=== PATIENT | female | born 1950 | race Caucasian/White ===

== ENCOUNTER 2021-06-05 12:04 | Outpatient (CLI) | payer MEDICARE, OTHER, SELFPAY ==
--- NOTE | 2021-06-05 12:06 | BI_ITS ---
MAMMOGRAPHY - BILATERAL SCREENING REASON FOR EXAM: Female, 71 years old. Routine annual screening examination. PERTINENT HISTORY: Personal history of breast cancer. History of prior bilateral lumpectomies and radiation treatment. Remote right excisional breast biopsy. TECHNIQUE: Digital bilateral breast sharmila (3D mammographic acquisition) in the CC and MLO projections. 2-D mediolateral oblique (MLO) and craniocaudad (CC) views of both breasts were obtained. CAD: Full Field Digital Mammography with Computer Added Detection was performed. COMPARISON: Comparison is made with prior abdomen examination dated 12/18/2019. FINDINGS: Breast Composition: There are scattered areas of fibroglandular density. There are no dominant masses or suspicious calcifications. Is a stable 2.6 cm x 1.3 cm densely calcified nodule in the deep inferior medial aspect of the left breast. It is also evidence of a stable 9 mm densely calcified nodule in the deep mid medial portion of the right breast. Stable scattered bilateral microcalcifications. No other significant abnormalities are identified. There has been no significant change since the prior study. BI/SCRN MAMM (CAD)W/SHARMILA BILAT IMPRESSION: Stable bilateral screening mammogram. Yearly follow-up mammogram recommended. (A) ASSESSMENT CATEGORY: BIRADS Category 2: Benign. A letter regarding these results will be sent to the patient by the facility within 30 days. Approximately 10% of breast cancers are not detected by mammography. A normal mammogram should not delay biopsy of a clinically suspicious abnormality. [id number] Electronically Signed: Qasim Roman MD at 12:57 EST , Service support ,
== END 2021-06-05 23:59 | disposition short-term general hospital (02) ==
LOC: OPBI 12:05
PROVIDERS: PCP Internal Medicine; Referring Provider Internal Medicine Hematology & Oncology; Visit Provider Internal Medicine Hematology & Oncology
DX: Z12.31 Encounter for screening mammogram for malignant neoplasm of breast (principal)
CPT/HCPCS: 77063; 77067

== ENCOUNTER 2021-06-16 15:32 | Outpatient (CLI) | payer MEDICARE, OTHER, SELFPAY ==
--- NOTE | 2021-06-16 15:45 | RAD_ITS ---
STUDY: X-RAY - PELVIS AND LEFT HIP REASON FOR EXAM: Female, 71 years old. Left hip pain. TECHNIQUE: 3 views of the pelvis and hip. COMPARISON: None. FINDINGS: There is a non-specific bowel gas pattern. Vascular calcifications. Osteopenia. Mild arthrosis of the sacroiliac joints. Normal bilateral superior and inferior pubic rami. Mild arthrosis of the symphysis pubis. Normal bilateral ischial tuberosities. Moderate arthrosis of both hips with osteophytes, left greater than right. RAD/HIP, UNI W/ Pelvis 2-3 Views IMPRESSION: Osteopenia. Mild arthrosis of the sacroiliac joints and symphysis pubis. Osteoarthritic changes of both hips, left greater than right. No acute abnormality, evidence of erosive changes or fusion. Electronically Signed: Aman Sharma MD at 10:27 EST ,
== END 2021-06-16 23:59 | disposition home or self-care (01) ==
PROVIDERS: PCP Internal Medicine; Referring Provider Nurse Practitioner Family; Visit Provider Nurse Practitioner Family
DX: Z51.11 Encounter for antineoplastic chemotherapy (principal); C90.00 Multiple myeloma not having achieved remission; M25.552 Pain in left hip
CPT/HCPCS: 36415; 73502; 80053; 85025; 96401; J1756; J7050; A4216; J9041

== ENCOUNTER 2022-06-08 09:08 | Outpatient (CLI) | payer MEDICARE, OTHER, SELFPAY ==
--- NOTE | 2022-06-08 09:10 | BI_ITS ---
MAMMOGRAPHY - BILATERAL SCREENING REASON FOR EXAM: Female, 72 years old. Routine annual screening examination. PERTINENT HISTORY: Personal history of breast cancer. Prior bilateral lumpectomy with radiation therapy. Right excisional breast biopsy. TECHNIQUE: Digital bilateral breast sharmila (3D mammographic acquisition) in the CC and MLO projections. 2-D mediolateral oblique (MLO) and craniocaudad (CC) views of both breasts were obtained. CAD: Full Field Digital Mammography with Computer Added Detection was performed. COMPARISON: Comparison is made with prior examination dated 11/03/2021. FINDINGS: Breast Composition: There are scattered areas of fibroglandular density. There are no dominant masses or suspicious calcifications. There is a stable 2.6 cm x 1.3 cm densely calcified nodule in the deep inferior medial aspect of the left breast. Stable 9 mm densely calcified nodule in the deep mid medial portion of the right breast. No other significant abnormalities are identified. There has been no significant change since the prior study. BI/SCRN MAMM (CAD)W/SHARMILA BILAT IMPRESSION: Stable bilateral screening mammogram. Yearly follow-up mammogram recommended. (A) ASSESSMENT CATEGORY: BIRADS Category 2: Benign. A letter regarding these results will be sent to the patient by the facility within 30 days. Approximately 10% of breast cancers are not detected by mammography. A normal mammogram should not delay biopsy of a clinically suspicious abnormality. [id number] Electronically Signed: Qasim Roman MD at 10:39 EST ,
== END 2022-06-08 23:59 | disposition home or self-care (01) ==
LOC: OPBI 09:08
PROVIDERS: PCP Internal Medicine; Visit Provider Internal Medicine Hematology & Oncology
DX: Z12.31 Encounter for screening mammogram for malignant neoplasm of breast (principal); C90.00 Multiple myeloma not having achieved remission
CPT/HCPCS: 36415; 77063; 77067; 82784; 84165; 85025; 86334; 96401; J9041

== ENCOUNTER → 2023-06-06 | Outpatient (CLI) | payer MEDICARE, OTHER, SELFPAY ==
--- NOTE | 2023-06-06 10:24 | MRI_ITS ---
EXAM: MR THORACIC SPINE WITHOUT AND WITH INTRAVENOUS CONTRAST CLINICAL INDICATION: mid-low back pain;multiple myeloma TECHNIQUE: Multiplanar and multisequence MR images of the thoracic spine without and with intravenous contrast. CONTRAST: IV 15cc Clariscan COMPARISON: No relevant prior studies available. FINDINGS: VERTEBRAE: Alignment of the thoracic vertebral bodies is normal. 16 mm lesion located within the posterior right side of the T8 vertebral body associated with inferior endplate deformity. Changes in bone marrow signal intensity also noted within the right T8 pedicle. The vertebral body and pedicle appear to enhance with contrast. Fat-containing lesion involving the left side of the T11 vertebral body, pedicle and facet again seen suggestive of hemangioma. Bone marrow signal intensity within the thoracic spine is otherwise normal. No acute fracture. There is preservation of the normal thoracic kyphosis. No scoliosis. DISCS/SPINAL CANAL/NEURAL FORAMINA: 10 x 4 mm extruded disc at the T7-8 level extending just to the right of midline causes moderate compression of the thecal sac but no significant compression of the thoracic cord. Spinal canal and neural foramina are otherwise intact. Mild narrowing of the intervertebral discs of the thoracic spine. SPINAL CORD: Normal. Normal in signal and morphology. Normal conus medullaris. SOFT TISSUES: Normal. MRI/Spine Thoracic W/WO Contrast IMPRESSION: 1. T8 lesion which may represent changes of multiple myeloma associated with inferior endplate deformity. 2. T7-8 right paracentral disc extrusion causing moderate compression of the thecal sac. Electronically Signed: Larry Hernandez MD at 14:43 EST ,
--- NOTE | 2023-06-06 10:24 | MRI_ITS ---
EXAM: MR LUMBAR SPINE WITHOUT AND WITH INTRAVENOUS CONTRAST CLINICAL INDICATION: mid-low back pain;multiple myeloma TECHNIQUE: Multiplanar and multisequence MR images of the lumbar spine without and with intravenous contrast. CONTRAST: IV 15cc Clariscan COMPARISON: No relevant prior studies available. FINDINGS: VERTEBRAE: Compression deformity of the left side of the L4 vertebral body noted associated with bone marrow edema and contrast enhancement. Findings suggestive of pathologic fracture. Abnormal signal intensity within the left L4 facet suspicious for metastatic disease or multiple myeloma as given in the clinical history. No other bony lesions are apparent of the fluid appears to be hemangioma within the T11 vertebral body. Alignment of the lumbar vertebral bodies is normal. SPINAL CORD: Conus medullaris terminates at the T12-L1 junction. Conus medullaris and cauda equina are normal. SOFT TISSUES: Normal. DISCS/SPINAL CANAL/NEURAL FORAMINA: L1-L2: Normal. Normal disc height and morphology. Normal spinal canal and lateral recesses. Normal neuroforamina. L2-L3: Mild disc space narrowing. No posterior disc protrusion. Mild facet arthropathy. No spinal or neural foraminal stenosis. L3-L4: No significant disc space narrowing or disc protrusion. Ligamentous hypertrophy and facet arthropathy results in moderate spinal and bilateral neural foraminal stenoses. L4-L5: No significant disc space narrowing. Mild disc bulging associated with annular fissure. Ligamentous hypertrophy and facet arthropathy results in mild lateral compression of the spinal canal and severe left and moderate right neural foraminal stenosis. L5-S1: Moderate facet arthropathy resulting in mild narrowing of the neural foramina. Intact spinal canal. MRI/Spine Lumbar W/WO Contrast IMPRESSION: 1. Compression deformity of the left superior and inferior endplates of L4 consistent with pathologic fracture. Associated bone marrow edema and abnormal contrast enhancement of the left side of the vertebral body and left facet consistent with the patient''s history of multiple myeloma. 2. Multilevel spinal and neural foraminal narrowing as described above. Electronically Signed: Larry Hernandez MD at 14:18 EST ,
--- OUTSIDE RECORDS SUMMARY | 2023-06-06 10:31 | XMS RPT_ITS | CCD ---
Author Name Unknown Address [address] [place] [address] Organization [facility] Care Team Providers Care Refrigeration Brazer/Solderer Name Role Phone BHARATH ACEVES UVALDO Unavailable Unavailable ROYAL, TJ S. Unavailable Unavailable LIZBETH BERGERON Unavailable Unavailable ROYAL, TJ S. Unavailable Unavailable [place], Tj Unavailable Unavailable [place], Tj S Unavailable Unavailable YoungMaddi Unavailable Unavailable [place], Tj S Unavailable Unavailable Unavailable [place], Tj Unavailable Ned Wilkes Unavailable Jeet Lynne Unavailable [place] DO, Tj Primary Care Provider Pamela VILLANUEVA, Niels Unavailable Yuval VILLANUEVA, PhD, Paulo M Unavailable Unavailable Unavailable [place] DO, Tj S Primary Care Provider Jeet Lynne DO Unavailable [place], Tj Primary Care Unavailable [place], Tj Referring Unavailable [place], Tj Attending Unavailable [place], Tj Primary Care Unavailable [place], Tj Referring Unavailable [place], Tj Attending Unavailable [place], Tj Primary Care Unavailable [place], Tj Referring Unavailable [place], Tj Attending Unavailable Jete Lynne Referring Unavailable Jeet Lynne Attending Unavailable [place], Tj Primary Care Unavailable [place], Tj Referring Unavailable [place], Tj Attending Unavailable [place], Tj Primary Care Unavailable [place], Tj Attending Unavailable [place], Tj Primary Care Unavailable [place], Tj Primary Care Unavailable [place], Tj Attending Unavailable Bachelder, Dr. Jerrod Douglas Attending Chantell vailable Tj Cortez Primary Care Unavailable TJ CORTEZ S Attending Unavailable TJ CORTEZ S Referring Unavailable TJ CORTEZ S Primary Care Unavailable TJ CORTEZ S Attending Unavailable TJ CORTEZ S Primary Care Unavailable TJ CORTEZ S Primary Care Unavailable TJ CORTEZ Referring Unavailable PAULO CYR Attending Unavailable TJ CORTEZ Primary Care Unavailable TJ CORTEZ Primary Care Unavailable PAULO CYR Attending Unavailable PAULO CYR Referring Unavailable TJ CORTEZ Primary Care Unavailable PAULO CYR Attending Unavailable PAULO CYR Referring Unavailable TJ CORTEZ Primary Care Unavailable PAULO CYR Attending Unavailable TJ CORTEZ Primary Care Unavailable TJ CORTEZ Referring Unavailable Medications Current Medications Medication Drug Class(es) Dates Sig (Normalized) Sig (Original) acyclovir 400 mg oral tablet (20 sources) Herpesvirus Nucleoside Analog DNA Polymerase Inhibitor, Herpes Simplex Virus Nucleoside Analog DNA Polymerase Inhibitor, Herpes Zoster Virus Nucleoside Analog DNA Polymerase Inhibitor Start: 06-02-2021 take 1 tablet by mouth twice daily acyclovir (Zovirax) 400 mg tablet Take 1 tablet (400 mg) by mouth 2 times a day. For 30 days with the start of chemotherapy 0 06/02/2021 Active Completed/Discontinued Medications Medication Drug Class(es) Dates Sig (Normalized) Sig (Original) amoxicillin 875 mg oral tablet (7 sources) Penicillin-class Antibacterial Start: 07-09-2022 take 1 tablet by mouth once daily Amoxicillin 875 MG Oral Tablet TAKE 1 TABLET EVERY 12 HOURS DAILY. Quantity: 20 Refills: 0 Ordered: 09-Jul-2022 Tj Cortez DO Start : 09-Jul-2022 Active Problems Active Problems Problem Classification Problem Date Documented Date Episodic/Chronic Abdominal pain (4 sources) Abdominal pain; Translations: [Abdominal pain, unspecified site] Episodic Acute bronchitis (1 source) Acute bronchitis; Translations: [Acute bronchitis] Episodic Diabetes mellitus without complication (20 sources) Hyperglycemia; Translations: [Other abnormal glucose] Onset: 06-26-2022 08-26-2022 Episodic Disorders of lipid metabolism (20 sources) Hypertriglyceridemia; Translations: [Pure hyperglyceridemia] Onset: 06-26-2022 08-26-2022 Chronic Esophageal disorders (20 sources) Gastroesophageal reflux disease; Translations: [Esophageal reflux] Onset: 06-26-2022 08-26-2022 Chronic Essential hypertension (20 sources) Benign hypertension; Translations: [Hypertensive disorder] Onset: 03-04-2015 03-04-2015 Chronic Fluid and electrolyte disorders (20 sources) Hyponatremia; Translations: [Hyposmolality and/or hyponatremia] Episodic Gout and other crystal arthropathies (7 sources) Gouty arthritis of the ankle and/or foot; Translations: [Acute gouty arthropathy] Chronic Multiple myeloma (20 sources) Multiple myeloma; Translations: [Multiple myeloma, without mention of having achieved remission] Onset: 06-26-2022 Chronic Occlusion or stenosis of precerebral arteries (20 sources) Carotid artery stenosis; Translations: [Occlusion and stenosis of carotid artery without mention of cerebral infarction] Onset: 06-26-2022 06-26-2022 Chronic Other and ill-defined heart disease (1 source) Cardiomegaly; Translations: [Cardiomegaly] Onset: 11-16-2021 Chronic Other connective tissue disease (1 source) Swelling of right lower limb; Translations: [Swelling of limb] 08-22-2021 Episodic Other ear and sense organ disorders (2 sources) Impacted cerumen in right ear; Translations: [Impacted cerumen, right ear] Onset: 03-24-2023 03-24-2023 Episodic Other ear and sense organ disorders (2 sources) Impacted cerumen, right ear; Translations: [Impacted cerumen, right ear] Onset: 03-24-2023 Episodic Other lower respiratory disease (3 sources) Hypoxia; Translations: [Nocturnal hypoxemia] Episodic Other non-traumatic joint disorders (20 sources) Shoulder pain; Translations: [Pain in joint, shoulder region] Onset: 06-26-2022 Resolved: 08-26-2022 08-26-2022 Episodic Other non-traumatic joint disorders (7 sources) Pain in right knee; Translations: [Acute pain of right knee] Episodic Other nutritional; endocrine; and metabolic disorders (5 sources) Obesity; Translations: [Obesity, unspecified] Chronic Other nutritional; endocrine; and metabolic disorders (20 sources) Body mass index 30+ - obesity; Translations: [Body Mass Index 35.0-35.9, adult] Chronic Other nutritional; endocrine; and metabolic disorders (13 sources) Severe obesity; Translations: [Morbid obesity] Chronic Other nutritional; endocrine; and metabolic disorders (20 sources) Obese class I; Translations: [Obesity, unspecified] Onset: 06-01-2021 06-01-2021 Chronic Other nutritional; endocrine; and metabolic disorders (2 sources) Morbid obesity; Translations: [Morbid (severe) obesity due to excess calories] Onset: 03-24-2023 03-24-2023 Chronic Other nutritional; endocrine; and metabolic disorders (2 sources) Morbid (severe) obesity due to excess calories; Translations: [Morbid (severe) obesity due to excess calories (CMS/HCC)] Onset: 03-24-2023 Chronic Other nutritional; endocrine; and metabolic disorders (2 sources) Obesity, unspecified; Translations: [Obesity, unspecified] Onset: 06-26-2022 Chronic Other upper respiratory disease (5 sources) Hoarse; Translations: [Dysphonia] Episodic Residual codes; unclassified (20 sources) Hypoxia; Translations: [Idiopathic sleep related non-obstructive alveolar hypoventilation] Onset: 06-26-2022 06-26-2022 Chronic Residual codes; unclassified (19 sources) Menopause present; Translations: [Symptomatic menopausal or female climacteric states] Episodic Spondylosis; intervertebral disc disorders; other back problems (11 sources) Cervical spondylosis; Translations: [Cervical spondylosis without myelopathy] Onset: 09-14-2021 Resolved: 08-26-2022 08-26-2022 Chronic Unclassified (2 sources) POSSIBLE BLOOD CLOT IN RIGHT LEG 08-22-2021 Past or Other Problems Problem Classification Problem Date Documented Da te Episodic/Chronic Cancer of breast (3 sources) Infiltrating duct carcinoma of breast; Translations: [Malignant neoplasm of unspecified site of unspecified female breast] Onset: 01-06-2015 Resolved: 03-24-2023 01-06-2015 Chronic Malaise and fatigue (20 sources) Fatigue; Translations: [Other malaise and fatigue] Onset: 06-26-2022 Episodic Mood disorders (2 sources) Mood disorders Onset: 12-18-2019 12-18-2019 Non-Hodgkin`s lymphoma (1 source) Personal history of other malignant neoplasms of lymphoid, hematopoietic and related tissues; Translations: [Prsnl hx of malig neoplm of lymphoid, hematpoetc rel tiss] Onset: 11-16-2021 Episodic Other bone disease and musculoskeletal deformities (3 sources) Segmental and somatic dysfunction of cervical region; Translations: [Segmental and somatic dysfunction of cervical region] Onset: 09-14-2021 Episodic Other bone disease and musculoskeletal deformities (3 sources) Segmental and somatic dysfunction of thoracic region; Translations: [Segmental and somatic dysfunction of thoracic region] Onset: 09-14-2021 Episodic Other lower respiratory disease (8 sources) Rib pain; Translations: [Chest pain, unspecified] Onset: 06-26-2022 06-26-2022 Episodic Other lower respiratory disease (4 sources) Pleurodynia; Translations: [Pleurodynia] Onset: 11-16-2021 Episodic Other nervous system disorders (20 sources) Carpal tunnel syndrome; Translations: [Carpal tunnel syndrome] Onset: 06-26-2022 Resolved: 08-26-2022 08-26-2022 Chronic Other non-traumatic joint disorders (1 source) Pain in left shoulder; Translations: [Pain in joint, shoulder region] Onset: 06-26-2022 Resolved: 08-26-2022 08-26-2022 Episodic Other non-traumatic joint disorders (1 source) Pain in right shoulder; Translations: [Pain in joint, shoulder region] Onset: 06-26-2022 Resolved: 08-26-2022 08-26-2022 Episodic Other nutritional; endocrine; and metabolic disorders (20 sources) Hyperuricemia; Translations: [Other abnormal blood chemistry] Onset: 06-26-2022 06-26-2022 Episodic Other screening for suspected conditions (not mental disorders or infectious disease) (20 sources) Patient encounter status; Translations: [Special screening for malignant neoplasms of colon] Onset: 11-16-2017 Episodic Results Test Name Value Interpretation Reference Range Facil ity Vital Signs Date Time Vital Sign Value Performing Clinician Facility 03-24-2023 10:20-0400 Diastolic blood pressure 74 mm[Hg] AquaBlok DO Work Phone: [facility] 03-24-2023 10:20-0400 Systolic blood pressure 138 mm[Hg] Tj [employer] DO Work Phone: [facility] 03-24-2023 10:00-0400 Body mass index (BMI) [Ratio] 36.57 kg/m2 Tj [place] DO Work Phone: [facility] 03-24-2023 10:00-0400 Body weight 76.66 kg Tj [place] DO Work Phone: [facility] 03-24-2023 10:00-0400 Heart rate 68 /min Tj [place] DO Work Phone: [facility] 03-24-2023 10:00-0400 SaO2% (BldA) [Mass fraction] 98 % Tj [place] DO Work Phone: [facility] 08-26-2022 09:19-0400 Body height 144.8 cm Tj [place] DO Work Phone: [facility] 08-26-2022 09:19-0400 Body mass index (BMI) [Ratio] 33.33 kg/m2 Tj [place] DO Work Phone: [facility] 08-26-2022 09:19-0400 Body weight 69.85 kg Tj [place] DO Work Phone: [facility] 08-26-2022 09:19-0400 Diastolic blood pressure 76 mm[Hg] Tj [place] DO Work Phone: [facility] 08-26-2022 09:19-0400 Heart rate 68 /min Tj [place] DO Work Phone: [facility] 08-26-2022 09:19-0400 SaO2% (BldA) [Mass fraction] 97 % Tj [place] DO Work Phone: [facility] 08-26-2022 09:19-0400 Systolic blood pressure 138 mm[Hg] Tj [place] DO Work Phone: [facility] 02-16-2022 14:47-0400 Body mass index (BMI) [Ratio] 31.75 kg/m2 Paulo Cyr MD, PhD Work Phone: [facility] 02-16-2022 14:47-0400 Body temperature 98.29 [degF] Paulo Cyr MD, PhD Work Phone: [facility] 02-16-2022 14:47-0400 Body weight 67.72 kg Paulo Cyr MD, PhD Work Phone: [facility] 02-16-2022 14:47-0400 Diastolic blood pressure 75 mm[Hg] Paulo Cyr MD, PhD Work Phone: [facility] 02-16-2022 14:47-0400 Heart rate 79 /min Paulo Cyr MD, PhD Work Phone: [facility] 02-16-2022 14:47-0400 Respiratory rate 16 /min Paulo Cyr MD, PhD Work Phone: [facility] 02-16-2022 14:47-0400 SaO2% (BldA) [Mass fraction] 93 % Paulo Cyr MD, PhD Work Phone: [facility] 02-16-2022 14:47-0400 Systolic blood pressure 154 mm[Hg] Paulo Cyr MD, PhD Work Phone: [facility] 02-04-2022 13:40-0400 Body height 144.78 cm [employer] Work Phone: [facility] [employer] [facility] Work Phone: 02-04-2022 13:40-0400 Body mass index (BMI) [Ratio] 32.28 kg/m2 [employer] Work Phone: [facility] [employer] [facility] Work Phone: 02-04-2022 13:40-0400 Body surface area Derived from formula 1.59 m2 [employer] Work Phone: [facility] [employer] [facility] Work Phone: 02-04-2022 13:40-0400 Body weight 67.67 kg Tj Cortez Work Phone: [facility] [employer] [facility] Work Phone: 02-04-2022 13:40-0400 Diastolic blood pressure 70 mm[Hg] Tj Cortez Work Phone: [facility] Work Phone: 02-04-2022 13:40-0400 Heart rate 72 /min Tj Cortez Work Phone: [facility] Work Phone: 02-04-2022 13:40-0400 SaO2% (BldA) [Mass fraction] 96 % Tj Cortez Work Phone: [facility] Work Phone: 02-04-2022 13:40-0400 Systolic blood pressure 130 mm[Hg] Tj Cortez Work Phone: [facility] Work Phone: 11-16-2021 11:48-0400 Body height 144.78 cm Tj Cortez Work Phone: [facility] [employer] [facility] Work Phone: 11-16-2021 11:48-0400 Body mass index (BMI) [Ratio] 31.2 kg/m2 Tj Tavares [place] Work Phone: [facility] Work Phone: 11-16-2021 11:48-0400 Body surface area Derived from formula 1.56 m2 Tj Cortez Work Phone: [facility] Work Phone: 11-16-2021 11:48-0400 Body weight 65.4 kg Tj Cortez Work Phone: [facility] Work Phone: 11-16-2021 11:48-0400 Diastolic blood pressure 58 mm[Hg] Tj Cortez Work Phone: [facility] Work Phone: 11-16-2021 11:48-0400 Heart rate 77 /min Tj Cortez Work Phone: [facility] Work Phone: 11-16-2021 11:48-0400 SaO2% (BldA) [Mass fraction] 95 % Tj Cortez Work Phone: [facility] Work Phone: 11-16-2021 11:48-0400 Systolic blood pressure 132 mm[Hg] Tj Cortez Work Phone: [facility] Work Phone: 10-13-2021 15:16-0400 Body height 146.1 cm Paulo Cyr MD, PhD Work Phone: [facility] 10-13-2021 15:16-0400 Body mass index (BMI) [Ratio] 31.68 kg/m2 Paulo Cyr MD, PhD Work Phone: [facility] 10-13-2021 15:16-0400 Body temperature 98.49 [degF] Paulo Cyr MD, PhD Work Phone: [facility] 10-13-2021 15:16-0400 Body weight 67.59 kg Paulo Cyr MD, PhD Work Phone: [facility] 10-13-2021 15:16-0400 Diastolic blood pressure 68 mm[Hg] Paulo Cyr MD, PhD Work Phone: [facility] 10-13-2021 15:16-0400 Heart rate 92 /min Paulo Cyr MD, PhD Work Phone: [facility] 10-13-2021 15:16-0400 Respiratory rate 18 /min Paulo Cyr MD, PhD Work Phone: [facility] 10-13-2021 15:16-0400 SaO2% (BldA) [Mass fraction] 95 % Paulo Cyr MD, PhD Work Phone: [facility] 10-13-2021 15:16-0400 Systolic blood pressure 153 mm[Hg] Paulo Cyr MD, PhD Work Phone: [facility] 10-01-2021 13:12-0400 Body height 146.05 cm Tj S [place] Work Phone: [facility] 3 DO Work Phone: 10-01-2021 13:12-0400 Body mass index (BMI) [Ratio] 32.07 kg/m2 Tj S [place] Work Phone: [facility] 3 DO Work Phone: 10-01-2021 13:12-0400 Body surface area Derived from formula 1.61 m2 Tj S [place] Work Phone: [facility] 3 DO Work Phone: 10-01-2021 13:12-0400 Body weight 68.4 kg Tj S [place] Work Phone: [facility] 3 DO Work Phone: 10-01-2021 13:12-0400 Diastolic blood pressure 78 mm[Hg] Tj S [place] Work Phone: [facility] 3 DO Work Phone: 10-01-2021 13:12-0400 Heart rate 63 /min Tj S [place] Work Phone: [facility] 3 DO Work Phone: 10-01-2021 13:12-0400 Systolic blood pressure 130 mm[Hg] Tj Tavares [place] Work Phone: [facility] Work Phone: 08-24-2021 09:58-0400 Body height 146.05 cm Tj Tavares [place] Work Phone: [facility] Work Phone: 08-24-2021 09:58-0400 Body mass index (BMI) [Ratio] 30.69 kg/m2 Tj Tavares [place] Work Phone: [facility] Work Phone: 08-24-2021 09:58-0400 Body surface area Derived from formula 1.58 m2 Tj Tavares [place] Work Phone: [facility] Work Phone: 08-24-2021 09:58-0400 Body weight 65.46 kg Tj Cortez Work Phone: [facility] Work Phone: 08-24-2021 09:58-0400 Diastolic blood pressure 74 mm[Hg] Tj Cortez Work Phone: [facility] Work Phone: 08-24-2021 09:58-0400 Heart rate 71 /min Tj Cortez Work Phone: [facility] Work Phone: 08-24-2021 09:58-0400 SaO2% (BldA) [Mass fraction] 98 % Tj Cortez Work Phone: [facility] Work Phone: 08-24-2021 09:58-0400 Systolic blood pressure 128 mm[Hg] Tj S [place] Work Phone: [facility] Work Phone: 08-22-2021 21:52-0400 Diastolic blood pressure 84 mm[Hg] Tj [place] Other Phone: [facility] 08-22-2021 21:52-0400 Heart rate 71 /min Tj [place] Other Phone: [facility] 08-22-2021 21:52-0400 Respiratory rate 17 /min Tj [place] Other Phone: [facility] 08-22-2021 21:52-0400 SaO2% (BldA) [Mass fraction] 97 % Tj [place] Other Phone: [facility] 08-22-2021 21:52-0400 Systolic blood pressure 123 mm[Hg] Tj [place] Other Phone: [facility] 08-22-2021 21:16-0400 Body height 144.7 cm Tj [place] Other Phone: [facility] 08-22-2021 21:16-0400 Body temperature 98.78 [degF] Tj [place] Other Phone: [facility] 08-22-2021 21:16-0400 Body weight 66 kg Tj [place] Other Phone: [facility] 07-02-2021 11:48-0500 Body height 146.05 cm Tj S [place] Work Phone: [facility] Work Phone: 07-02-2021 11:48-0500 Body mass index (BMI) [Ratio] 31.09 kg/m2 Tj S [place] Work Phone: [facility] DO Work Phone: 07-02-2021 11:48-0500 Body surface area Derived from formula 1.58 m2 Tj S [place] Work Phone: [facility] 3 DO Work Phone: 07-02-2021 11:48-0500 Body weight 66.32 kg Tj S [place] Work Phone: [facility] 3 DO Work Phone: 07-02-2021 11:48-0500 Diastolic blood pressure 60 mm[Hg] Tj S [place] Work Phone: [facility] 3 DO Work Phone: 07-02-2021 11:48-0500 Heart rate 84 /min Tj S [place] Work Phone: [facility] 3 DO Work Phone: 07-02-2021 11:48-0500 Systolic blood pressure 128 mm[Hg] Tj S [place] Work Phone: [facility] 3 DO Work Phone: 06-29-2021 10:23-0500 Body height 144.78 cm Tj S [place] Work Phone: [facility] Work Phone: 06-29-2021 10:23-0500 Body mass index (BMI) [Ratio] 31.49 kg/m2 Tj S [place] Work Phone: [facility] Work Phone: 06-29-2021 10:23-0500 Body surface area Derived from formula 1.57 m2 Tj S [place] Work Phone: [facility] Work Phone: 06-29-2021 10:23-0500 Body temperature 96.8 [degF] Tj Cortez [employer] Phone: [facility] [employer] [facility] Work Phone: 06-29-2021 10:23-0500 Body weight 66 kg Tj Cortez Work Phone: [facility] [employer] [facility] Work Phone: 06-29-2021 10:23-0500 Diastolic blood pressure 76 mm[Hg] Tj Tavares [place] Work Phone: [facility] [employer] [facility] Work Phone: 06-29-2021 10:23-0500 Heart rate 66 /min Tj Cortez [employer] Phone: [facility] [employer] [facility] Work Phone: 06-29-2021 10:23-0500 SaO2% (BldA) [Mass fraction] 99 % Tj Cortez [employer] Phone: [facility] [employer] [facility] Work Phone: 06-29-2021 10:23-0500 Systolic blood pressure 124 mm[Hg] Tj Cortez [employer] Phone: [facility] [employer] [facility] Work Phone: 06-18-2021 11:04-0500 Body height 144.78 cm Tj Cortez [employer] Phone: [facility] [employer] [facility] Work Phone: 06-18-2021 11:04-0500 Body mass index (BMI) [Ratio] 32.07 kg/m2 Tj Cortez [employer] Phone: [facility] [employer] [facility] Work Phone: 06-18-2021 11:04-0500 Body surface area Derived from formula 1.58 m2 Tj Cortez [employer] Phone: [facility] [employer] [facility] Work Phone: 06-18-2021 11:04-0500 Body weight 67.22 kg Tj Tavares [place] Work Phone: [facility] Work Phone: 06-18-2021 11:04-0500 Diastolic blood pressure 68 mm[Hg] Tj Tavares [place] Work Phone: [facility] Work Phone: 06-18-2021 11:04-0500 Heart rate 70 /min Tj Tavares [place] Work Phone: [facility] Work Phone: 06-18-2021 11:04-0500 SaO2% (BldA) [Mass fraction] 100 % Tj Tavares [place] Work Phone: [facility] Work Phone: 06-18-2021 11:04-0500 Systolic blood pressure 136 mm[Hg] Tj Tavares [place] Work Phone: [facility] Work Phone: 05-21-2021 13:19-0500 Body height 144.78 cm Tj Tavares [place] Work Phone: [facility] Work Phone: 05-21-2021 13:19-0500 Body mass index (BMI) [Ratio] 32.24 kg/m2 Tj Tavares [place] Work Phone: [facility] Work Phone: 05-21-2021 13:19-0500 Body surface area Derived from formula 1.59 m2 Tj Tavares [place] Work Phone: [facility] Work Phone: 05-21-2021 13:19-0500 Body weight 67.59 kg Tj Tavares [place] Work Phone: [facility] Work Phone: 05-21-2021 13:19-0500 Diastolic blood pressure 64 mm[Hg] Tj Tavares [place] Work Phone: [facility] Work Phone: 05-21-2021 13:19-0500 Heart rate 80 /min Tj Tavares [place] Work Phone: [facility] Work Phone: 05-21-2021 13:19-0500 Systolic blood pressure 112 mm[Hg] Tj Tavares [place] Work Phone: [facility] Work Phone: 04-14-2021 10:39-0500 Body height 144.78 cm Tj Tavares [place] Work Phone: [facility] Work Phone: 04-14-2021 10:39-0500 Body mass index (BMI) [Ratio] 33.11 kg/m2 Tj Tavares [place] Work Phone: [facility] Work Phone: 04-14-2021 10:39-0500 Body surface area Derived from formula 1.6 m2 Tj Tavares [place] Work Phone: [facility] Work Phone: 04-14-2021 10:39-0500 Body temperature 97.1 [degF] Tj Tavares [place] Work Phone: [facility] Work Phone: 04-14-2021 10:39-0500 Body weight 69.4 kg Tj Tavares [place] Work Phone: [facility] Work Phone: 04-14-2021 10:39-0500 Diastolic blood pressure 72 mm[Hg] Tj Tavares [place] Work Phone: [facility] Work Phone: 04-14-2021 10:39-0500 Heart rate 69 /min Tj Tavares [place] Work Phone: [facility] Work Phone: 04-14-2021 10:39-0500 Systolic blood pressure 146 mm[Hg] Tj S [place] Work Phone: [facility] Work Phone: 03-17-2021 10:09-0400 Body height 144.78 cm Tj Tavares [place] Work Phone: [facility] 3 DO Work Phone: 03-17-2021 10:09-0400 Body mass index (BMI) [Ratio] 33.97 kg/m2 Tj S [place] Work Phone: [facility] 3 DO Work Phone: 03-17-2021 10:09-0400 Body surface area Derived from formula 1.62 m2 Tj Tavares [place] Work Phone: [facility] 3 DO Work Phone: 03-17-2021 10:09-0400 Body temperature 97.5 [degF] Tj Tavares [place] Work Phone: [facility] 3 DO Work Phone: 03-17-2021 10:09-0400 Body weight 71.22 kg Tj Tavares [place] Work Phone: [facility] 3 DO Work Phone: 03-17-2021 10:09-0400 Diastolic blood pressure 70 mm[Hg] Tj S [place] Work Phone: [facility] 3 DO Work Phone: 03-17-2021 10:09-0400 Heart rate 74 /min Tj Tavares [place] Work Phone: [facility] Work Phone: 03-17-2021 10:09-0400 Systolic blood pressure 132 mm[Hg] Tj Tavares [place] Work Phone: [facility] Jared 3 [facility] Work Phone: 01-09-2021 10:36-0400 Body height 144.78 cm Tj Tavares [place] Work Phone: [facility] Work Phone: 01-09-2021 10:36-0400 Body mass index (BMI) [Ratio] 35.11 kg/m2 Tj Tavares [place] Work Phone: [facility] Work Phone: 01-09-2021 10:36-0400 Body surface area Derived from formula 1.65 m2 Tj Tavares [place] Work Phone: [facility] [employer] [facility] Work Phone: 01-09-2021 10:36-0400 Body temperature 96.4 [degF] Tj Tavares [place] Work Phone: [facility] [employer] [facility] Work Phone: 01-09-2021 10:36-0400 Body weight 73.6 kg Tj Tavares [place] Work Phone: [facility] Work Phone: 01-09-2021 10:36-0400 Diastolic blood pressure 62 mm[Hg] Tj S [place] Work Phone: [facility] Work Phone: 01-09-2021 10:36-0400 Heart rate 78 /min Tj Tavares [place] Work Phone: [facility] Work Phone: 01-09-2021 10:36-0400 SaO2% (BldA) [Mass fraction] 98 % Tj Tavares [place] Work Phone: [facility] Work Phone: 01-09-2021 10:36-0400 Systolic blood pressure 130 mm[Hg] Tj Cortez Work Phone: [facility] Work Phone: 06-18-2020 12:12-0500 BMI (Body Mass Index) 35.57 kg/m2 Maddi Lynne [facility] Work Phone: 06-18-2020 12:12-0500 Body Temperature 96.8 [degF] Maddi Lynne [facility] Work Phone: 06-18-2020 12:12-0500 Body weight 74.56 kg Maddi Lynne [facility] Work Phone: 06-18-2020 12:12-0500 BP Diastolic 86 mm[Hg] Maddi Lynne [facility] Work Phone: 06-18-2020 12:12-0500 BP Systolic 138 mm[Hg] Maddi Lynne [facility] Work Phone: 06-18-2020 12:12-0500 BSA (Body Surface Area) 1.65 m2 Maddi Lynne [facility] Work Phone: 06-18-2020 12:12-0500 Height 144.78 cm Maddi Lynne [facility] Work Phone: 06-18-2020 12:12-0500 Pulse (Heart Rate) 71 /min Maddi Lynne [facility] Work Phone: 06-18-2020 12:12-0500 Pulse Oximetry 98 % Maddi Lynne [facility] Work Phone: 06-17-2020 12:04-0500 BMI (Body Mass Index) 35.79 kg/m2 Maddi Lynne [facility] Work Phone: 06-17-2020 12:04-0500 Body Temperature 97.1 [degF] Maddi Lynne [facility] Work Phone: 06-17-2020 12:04-0500 Body weight 75.01 kg Maddi Lynne [facility] Work Phone: 06-17-2020 12:04-0500 BSA (Body Surface Area) 1.66 m2 Maddi Lynne [facility] Work Phone: 06-17-2020 12:04-0500 Height 144.78 cm Maddi Lynne [facility] Work Phone: 06-17-2020 12:04-0500 Pulse (Heart Rate) 76 /min Maddi Lynne [facility] Work Phone: 06-17-2020 12:04-0500 Pulse Oximetry 97 % Maddi Lynne [facility] Work Phone: 11-09-2019 13:01-0400 BMI (Body Mass Index) 32.62 kg/m2 [facility] [employer] Work Phone: 11-09-2019 13:01-0400 Body Temperature 97.7 [degF] [facility] [employer] Work Phone: Encounters Encounter Date Encounter Type Care Provider Facility Start: 03-24-2023 End: 03-24-2023 ambulatory [facility] Ambulatory Start: 03-24-2023 End: 03-24-2023 Office outpatient visit 25 minutes [facility] Work Phone: [facility] Procedures Date Procedure Procedure Detail Performing Clinician Start: 03-24-2023 FOLLOW UP IN FAMILY MEDICINE TJ ROYAL Start: 03-21-2023 Hemoglobin A1c/Hemoglobin.total in Blood TJ Start: 08-25-2022 Lipid 1996 panel - S oscar or Plasma Tj [place] DO Work Phone: Start: 05-27-2021 End: 05-27-2021 Colonoscopy Tj S [place] Work Phone: Start: 06-17-2020 Basic metabolic 1998 panel - Serum or Plasma Maddi Lynne Start: 11-09-2019 Basic metabolic 1998 panel - Serum or Plasma Tj [place] Start: 11-09-2019 Lipid panel Tj R oyal Start: 09-03-2019 Assay of thyroid sti mulating hormone tsh Tj [place] Start: 09-03-2019 Pulse Oximetry, Nocturnal Tj Royal Biopsy of breast Tj Burroughs yal Cholecystectomy Tj Cervantes al Dilation and curettage Stephanie Tavares [place] Work Phone: Ligation of fallopian tube K inés Cortez Plan of Treatment Date Care Activity Detail Author Start: 05-27-2031 Screening for malign ant neoplasm of colon [facility] Start: 08-26-2027 Lipid panel Lipid Panel [facility] Start: 03-21-2024 Hemoglobin A1c measurement Diabetes: Hemoglobin A1C [facility] Start: 10-13-2023 End: 10-13-2023 Patient encounter procedure 10/13/2023 10:30 AM EDT Office Visit [facility] Medical Office Building [address] [place] [phone] Maddi Lynne, [employer]ARM [employer] PURCHASER-STRICKLER ATTENDANT, DNP [address] [facility] [address] [place] [address] [facility] Medical Office Building Start: 09-22-2023 End: 03-24-2024 Hemoglobin A1c/Hemoglobin.total in Blood Hemoglobin A1C Lab Routine Prediabetes Expected: 09/22/2023 (Approximate), Expires: 03/24/2024 [facility] Service Area Work Phone: Immunizations Immunization Date Immunization Notes Care Provider Fa cility 07-24-2020 Moderna COVID-19 Vaccine 100 MCG/0.5ML Intramuscular Suspension Tj Tavares [place] Work Phone: [facility] 06-27-2020 Moderna COVID-19 Vaccine 100 MCG/0.5ML Intramuscular Suspension Tj Tavares [place] Work Phone: [facility] Payers Date Payer Category Payer Unknown [id number] 2018 Unknown [id number] 2015 Medicare [id number] 2015 Medicare [id number] 2015 Medicare [id number] 2015 Unknown 1950 Unknown [id number] 2.16. [id number] 1950 Unknown [id number] 2.16. [id number] 1950 Unknown [id number] 2.16. [id number] 1950 Unknown [id number] 2.16. [id number] 1950 Unknown [id number] 2.16. [id number] 1950 Unknown [id number] 2.16.8 40.1.651533.3.579.2.1069 1950 Unknown [id number] 2.16.8 40.1.237009.3.579.2.1069 1950 Unknown [id number] 2.16.8 40.1.588961.3.579.2.1069 1950 Unknown [id number] 2.16.8 40.1.678600.3.579.2.1244 1950 Unknown [id number] 2.16.84 0.1.431253.3.579.2.1244 1950 Unknown [id number] 2.16.8 40.1.164965.3.579.2.1245 1950 Unknown [id number] 2.16. 840.1.831035.3.579.2.594 1950 Unknown [id number] 2.16. 840.1.538678.3.579.2.594 1950 Unknown [id number] 2.16. 840.1.551506.3.579.2.594 1950 Unknown [id number] 2.16. 840.1.274215.3.579.2.594 1950 Unknown [id number] 2.16. [id number] 1950 Unknown [id number] 2.16. [id number] Private Health Insurance W2 Social History Date Type Detail Facility Start: 07-15-2021 End: 03-24-2023 No alcohol use No alcohol use [facility] Tobacco smoking consumption unknown [facility] Start: 04-08-2015 End: 08-26-2022 Tobacco smoking status NHIS Never smoked tobacco [facility] Start: 04-08-2015 End: 08-26-2022 Tobacco use and exposure Smokeless tobacco non-user [facility] Start: 07-15-2021 Alcohol intake Current non-dr eating disorder specialist of alcohol (finding) [facility] Start: 12-18-2019 History SDOH Financial 5 [facility] Start: 12-18-2019 History SDOH Food Worry 1 [facility] Start: 12-18-2019 History SDOH Transport Med 2 [facility] Start: 1950 Sex Assigned At Not on file [facility] Start: 08-26-2022 End: 03-24-2023 Alcohol intake Lifetime non-drinker (finding) [facility] Work Phone: Start: 08-26-2022 End: 03-24-2023 Tobacco use panel [facility] Start: 08-15-2022 End: 03-24-2023 Exposure to SARS-CoV-2 (event) Not sure [facility] NEGATED: Highlighted row - - [facility] Work Phone: Goals Date Patient Goal Desired Activity /State Functional Status Date Assessment Result Facility NEGATED: Highlighted row Functional performance Functional status health issues are not documented [facility] Work Phone: Mental Status Date Assessment Result Facility NEGATED: Highlighted row Cognitive function [Interpretation] Cognitive status health issues are not documented [facility] Work Phone: Clinical Notes 10-21-2020 to 03-24-2023 Assessment & Plan Note - Tj Cortez DO - 03/24/2023 10:23 AM EDTAssessment & Plan Note - Tj Cortez DO - 03/24/2023 10:23 AM EDTTj Cortez DO - 03/24/2023 10:00 AM EDT Note Date & Type Note Facility 03-24-2023 Evaluation + Plan note Associated Problem(s): Spinal enthesopathy, lumbar region (CMS/HCC) -Her condition has been stable [facility] Work Phone: 03-24-2023 Evaluation + Plan note Associated Problem(s): GERD (gastroesophageal reflux disease) -Currently stable -She will continue with famotidine 20 mg twice daily [facility] Work Phone: 03-24-2023 Miscellaneous Notes Associated Problem(s): Spinal enthesopathy, lumbar region (CMS/HCC) -Her condition has been stable Associated Problem(s): GERD (gastroesophageal reflux disease) -Currently stable -She will continue with famotidine 20 mg twice daily Associated Problem(s): Impacted cerumen of right ear -We are going to flush her right ear of cerumen this morning Associated Problem(s): HTN (hypertension), benign -Her blood pressure was a bit generous when she arrived and after sitting for a period of time I did recheck it. It just came down only a couple of points. -She had been on an antihypertensive medication in the past i.e. valsarta-she is currently on nifedipine CC 30 mg daily -She has agreed to check her blood pressure at home when she has the opportunity to sit and relax and give me an update as we could go up on the nifedipine dose if necessary documented in this encounter [facility] Work Phone: 03-24-2023 Evaluation + Plan note Associated Problem(s): Impacted cerumen of right ear -We are going to flush her right ear of cerumen this morning [facility] Work Phone: 03-24-2023 Evaluation + Plan note Associated Problem(s): HTN (hypertension), benign -Her blood pressure was a bit generous when she arrived and after sitting for a period of time I did recheck it. It just came down only a couple of points. -She had been on an antihypertensive medication in the past i.e. valsarta-she is currently on nifedipine CC 30 mg daily -She has agreed to check her blood pressure at home when she has the opportunity to sit and relax and give me an update as we could go up on the nifedipine dose if necessary [facility] Work Phone: 03-24-2023 History of Present illness Narrative Subjective Patient ID: Lauri Read is a 73 y.o. female who presents for Follow-up (6 MO FUV. Right ear clogged. Been using ear drops all week. ). HPI She is here today for a general checkup. We are reminded that she is following closely with oncology because of her multiple myeloma and she is on chronic medications. She takes dexamethasone once a week. We had her get a hemoglobin A1c as her sugars have been elevated in the past. It came back at 6 but she has been relatively stable. We also discussed some issues she has had with her left knee. She states that sometime ago she felt like something popped in the knee and she has been wearing a Lukas wrap. She states she is getting around okay and we talked about possibly doing further investigation but she states she feels like she is doing okay for now. I did also discussed the importance of getting preventative vaccines as I do feel that she is at high risk given her immune compromise. I have specifically recommended the pneumonia vaccine but she politely refuses for now. She knows she changes her mind she is welcome to come back. She also has some cerumen in her right ear and she feels like its full so we will flush it free of cerumen today. If everything goes according to plan we would see her back in 6 months for reevaluation and we will check her hemoglobin A1c again as well as her cholesterol. Review of Systems Constitutional: Positive for fatigue. Respiratory: Negative for cough, shortness of breath and wheezing. Cardiovascular: Negative for chest pain, palpitations and leg swelling. Gastrointestinal: Negative for abdominal pain, blood in stool, diarrhea, nausea and vomiting. Musculoskeletal: Negative for arthralgias and back pain. Objective Physical Exam Vitals and nursing note reviewed. Constitutional: General: She is not in acute distress. Appearance: Normal appearance. HENT: Head: Normocephalic and atraumatic. Eyes: Conjunctiva/sclera: Conjunctivae normal. Cardiovascular: Rate and Rhythm: Normal rate and regular rhythm. Heart sounds: Normal heart sounds. Pulmonary: Effort: No respiratory distress. Breath sounds: No wheezing. Abdominal: Palpations: Abdomen is soft. Tenderness: There is no abdominal tenderness. There is no guarding. Musculoskeletal: General: No swelling. Normal range of motion. Skin: General: Skin is warm and dry. Neurological: General: No focal deficit present. Mental Status: She is alert and oriented to person, place, and time. Psychiatric: Behavior: Behavior normal. Recent Results (from the past 672 hour(s)) Hemoglobin A1c Collection Time: 03/21/23 7:29 AM Result Value Ref Range Hemoglobin A1C 6.0 (H) see below % Estimated Average Glucose 126 Not Established mg/dL Assessment/Plan Problem List Items Addressed This Visit ICD-10-CM GERD (gastroesophageal reflux disease) K21.9 -Currently stable -She will continue with famotidine 20 mg twice daily HTN (hypertension), benign I10 -Her blood pressure was a bit generous when she arrived and after sitting for a period of time I did recheck it. It just came down only a couple of points. -She had been on an antihypertensive medication in the past i.e. valsarta-she is currently on nifedipine CC 30 mg daily -She has agreed to check her blood pressure at home when she has the opportunity to sit and relax and give me an update as we could go up on the nifedipine dose if necessary Hypertriglyceridemia E78.1 Relevant Orders Lipid Panel Prediabetes R73.03 Relevant Orders Hemoglobin A1C Spinal enthesopathy, lumbar region (CMS/HCC) - Primary M46.06 -Her condition has been stable Obesity, morbid (CMS/HCC) E66.01 Impacted cerumen of right ear H61.21 -We are going to flush her right ear of cerumen this morning Tj Cortez DO documented in this encounter [facility] Work Phone: 03-24-2023 Instructions Tj Cortez DO - 03/24/2023 10:00 AM EDT As we discussed I am a little concerned about your blood pressure and I would like for you to check your blood pressure at home with your personal device when you have the opportunity to sit and relax for 10 to 20 minutes. After checking several readings over the next several weeks please give me an update on how you are doing Please know that you can always call but there is also a way to message through [employer] We are going to flush your ear today and please let us know if you are not doing well If you change your mind about the Prevnar 20 pneumonia vaccine please let us know We will see you back in 6 months and just prior to that visit you will need to have a fasting blood test so that we can check your cholesterol and your hemoglobin A1c documented in this encounter [facility] Work Phone: 08-26-2022 Evaluation + Plan note Associated Problem(s): Medicare annual wellness visit, initial -We discussed the importance of establishing advanced directives [facility] Work Phone: 08-26-2022 Miscellaneous Notes Associated Problem(s): Medicare annual wellness visit, initial -We discussed the importance of establishing advanced directives Associated Problem(s): Hypertriglyceridemia -Her cholesterol profile is excellent -She will continue with Lopid 600 mg daily -We will check her cholesterol once a year per Medicare guidelines Associated Problem(s): Prediabetes -We are ordering a hemoglobin A1c to be done just prior to her next visit -We encourage again routine exercise with healthy diet and weight loss Associated Problem(s): GERD (gastroesophageal reflux disease) -Her acid reflux symptoms have flared and she was only taking the Pepcid once daily. We will have her go to twice daily and I have sent a new prescription. She will call if her symptoms do not improve soon -She does not use [id number] NSAIDs Associated Problem(s): HTN (hypertension), benign -Her blood pressure is currently well controlled and she will continue taking nifedipine CC 30 mg once daily -Furosemide 40 mg 1 tablet daily documented in this encounter [facility] Work Phone: 08-26-2022 Evaluation + Plan note Associated Problem(s): Hypertriglyceridemia -Her cholesterol profile is excellent -She will continue with Lopid 600 mg daily -We will check her cholesterol once a year per Medicare guidelines [facility] Work Phone: 08-26-2022 Evaluation + Plan note Associated Problem(s): Prediabetes -We are ordering a hemoglobin A1c to be done just prior to her next visit -We encourage again routine exercise with healthy diet and weight loss [facility] Work Phone: 08-26-2022 Evaluation + Plan note Associated Problem(s): GERD (gastroesophageal reflux disease) -Her acid reflux symptoms have flared and she was only taking the Pepcid once daily. We will have her go to twice daily and I have sent a new prescription. She will call if her symptoms do not improve soon -She does not use [id number]-djysltt NSAIDs [facility] Work Phone: 08-26-2022 Evaluation + Plan note Associated Problem(s): HTN (hypertension), benign -Her blood pressure is currently well controlled and she will continue taking nifedipine CC 30 mg once daily -Furosemide 40 mg 1 tablet daily [facility] Work Phone: 08-26-2022 History of Present illness Narrative Pt is here today for a 6 month check up, she is also due for a [facility] wellness exam. Review labs. Subjective Reason for Visit: Lauri Read is an 72 y.o. female here for a Medicare Wellness visit. Past Medical, Surgical, and Family History reviewed and updated in chart. Reviewed all medications by prescribing practitioner or clinical pharmacist (such as prescriptions, OTCs, herbal therapies and supplements) and documented in the medical record. HPI She is here today for her general checkup and we also completed her annual Medicare wellness visit. In a lot of ways she is doing well but she states she has had some recent stomach upset and she points to the epigastric region. She advises that some of her chemotherapeutic medication is known to heighten acid production. She has only been taking the Pepcid once daily and I have asked that she start taking it twice daily. If its not effective we will change to a PPI and she will need to be reassessed as well. We did conduct a review of systems and we went through the Medicare questionnaire. We also reviewed her most recent laboratory test result which was her cholesterol. It is very good. We did not order other lab work as she does have it done routinely through her specialist. We will be checking a hemoglobin A1c at her next visit. She is currently being treated for multiple myeloma. We also discussed the importance of healthy diet that is well-balanced and also to start exercising. She has enjoyed swimming in the pool and I encouraged her to get back to doing so. We also discussed the importance of establishing advanced directives Patient Care Team: Tj Cortez DO as PCP - General Jeet Lynne DO (Nephrology) Review of Systems Constitutional: Negative for fatigue. Respiratory: Negative for cough, chest tightness, shortness of breath and wheezing. Cardiovascular: Negative for chest pain, palpitations and leg swelling. Gastrointestinal: Positive for abdominal pain. Negative for blood in stool, diarrhea, nausea and vomiting. Musculoskeletal: Negative for arthralgias and back pain. Objective Vitals: BP 138/76 Pulse 68 Ht 1.448 m (4' 9 ) Wt 69.9 kg (154 lb) SpO2 97% BMI 33.33 kg/m Physical Exam Vitals and nursing note reviewed. Constitutional: General: She is not in acute distress. Appearance: Normal appearance. HENT: Head: Normocephalic and atraumatic. Eyes: Conjunctiva/sclera: Conjunctivae normal. Cardiovascular: Rate and Rhythm: Normal rate and regular rhythm. Heart sounds: Normal heart sounds. Pulmonary: Effort: No respiratory distress. Breath sounds: No wheezing. Abdominal: Palpations: Abdomen is soft. Tenderness: There is no abdominal tenderness. There is no guarding. Musculoskeletal: General: No swelling. Normal range of motion. Skin: General: Skin is warm and dry. Neurological: General: No focal deficit present. Mental Status: She is alert and oriented to person, place, and time. Psychiatric: Behavior: Behavior normal. Recent Results (from the past 672 hour(s)) Lipid Panel Collection Time: 08/25/22 7:41 AM Result Value Ref Range Cholesterol 144 0 - 199 mg/dL HDL 47.0 mg/dL Cholesterol/HDL Ratio 3.1 LDL 78 0 - 99 mg/dL VLDL 19 0 - 40 mg/dL Triglycerides 93 0 - 149 mg/dL Assessment/Plan Problem List Items Addressed This Visit None Problem List Items Addressed This Visit Circulatory HTN (hypertension), benign -Her blood pressure is currently well controlled and she will continue taking nifedipine CC 30 mg once daily -Furosemide 40 mg 1 tablet daily Relevant Orders Follow Up In Primary Care Digestive GERD (gastroesophageal reflux disease) -Her acid reflux symptoms have flared and she was only taking the Pepcid once daily. We will have her go to twice daily and I have sent a new prescription. She will call if her symptoms do not improve soon -She does not use [id number] NSAIDs Relevant Medications famotidine (Pepcid) 20 mg tablet Other Relevant Orders Follow Up In Primary Care Endocrine/Metabolic Obesity (BMI 30.0-34.9) Prediabetes -We are ordering a hemoglobin A1c to be done just prior to her next visit -We encourage again routine exercise with healthy diet and weight loss Relevant Orders Hemoglobin A1c Other Hypertriglyceridemia -Her cholesterol profile is excellent -She will continue with Lopid 600 mg daily -We will check her cholesterol once a year per Medicare guidelines Relevant Orders Follow Up In Primary Care Multiple myeloma ([facility]) Medicare annual wellness visit, initial - Primary -We discussed the importance of establishing advanced directives documented in this encounter [facility] Work Phone: 08-26-2022 Instructions Tj Cortez DO - 08/26/2022 9:20 AM EDT -Please remember that I would like for you to take your Pepcid or famotidine twice daily and please call if your gastrointestinal symptoms do not improve or resolve Remember that we discussed the importance of establishing both a living will and power of state attorney for healthcare. If you have these documents please provide a copy for your chart here and if you do not we encourage you to establish them -If everything goes according to plan I will see you back in 6 months and please remember to get fasting lab work prior to that visit documented in this encounter [facility] Work Phone: 02-16-2022 History of Present illness Narrative Care team: Jeet Lynne, Tj Cortez, Niels Santiago, Salvador Flores, Yusuf Leyva CC: Myeloma HPI Ms. Read is a very pleasant 71 y.o. woman diagnosed with myeloma. She has been under the excellent care of Dr Leyva in [place]. She is doing well. A complete response by serum restaging was documented a few months ago! She has tolerated treatment well but has accumulating side effects now. She would like to consider shifting gears towards a maintenance type strategy. ROS A complete ROS was obtained, no fever, no vomiting and is negative otherwise. PMH 1. Myeloma 2. HTN 3. Granuloma annulare 4. Obesity 5. GERD 6. Carpel tunnel 7. Hyperglycemia 8. Carotid stenosis 9. Hyperuricemia 10. Breast cancer (2015, lumpectomy/radiation) 11. COVID19 infection (April 2021) SH No tobacco, no alcohol use, 1 son (works at [email or web address]), 1 daughter, 1 great grand child now in [place], , her used to work for the [employer] [facility] Father with lung cancer BP 154/75 (BP Position: Sitting) Pulse 79 Temp 98.3 F (36.8 C) (Oral) Resp 16 Wt 67.7 kg (149 lb 4.8 oz) SpO2 93% BMI 31.75 kg/m Smoking Status Never Smoker NAD PERRL MASKED Neck supple Normal rate No wheezing NABS DUNN no c/c/e, non focal neuro exam No rash No bleeding Multiple myeloma Date of dx: 30-APR-2021 CRAB at dx: Anemia Bone MDE: CRAB, no MDE Protein marker: lgG and KLC ISS at dx: 1 R-ISS at dx: 2 DS at dx: 2a Karyotype at dx: Normal Bone at dx: 2-3 lytic lesions Comments: FISH at dx: CD 138 Select: Yes Probe Result Percentage 1q21 Gain 3 hyperdiploidy Rx1: Velcade (bortezomib), Revlimid (lenalidomide), and dexamethasone Start date: 11-JUN-2021 Stop date: Line of therapy: 1 Line best response: uCR Rx best response: uCR Stop reason: Current Outpatient Medications Medication Sig acyclovir 400mg 400 MG tablet Take 400 mg by mouth daily. allopurinol 100 MG tablet Take 100 mg by mouth daily. Alpha-Lipoic Acid 200 MG capsule Take 200 mg by mouth 2 times daily. amLODIPine 5 MG Tab take 5 mg by mouth daily.. aspirin 81 MG Chew Tab chewable tablet Chew 81 mg daily. Bioflavonoid Products (DEVON C PO) take 4,000 mg by mouth at bedtime. bisoprolol-hydrochlorothiazide 10-6.25 MG Tab take 2 tablets by mouth daily with breakfast. DEXAMETHASONE PO Take 20 mg by mouth See admin instructions. Take 20 mg weekly for 2 weeks and off for 1 week famotidine (Pepcid) 40 MG tablet Take 40 mg by mouth See admin instructions. Take weekly for 2 weeks and off 1 week furOSEmide 40 MG tablet Take 40 mg by mouth daily. HERBAL PRODUCT 2 tablets 2 times daily. Graviola HERBAL PRODUCT ningxia HERBAL PRODUCT cyruta +t HERBAL PRODUCT cataplex HERBAL PRODUCT congaplex HERBAL PRODUCT emzymacore HERBAL PRODUCT [place] 3 HERBAL PRODUCT egyptian black radish HERBAL PRODUCT Kidney Well HERBAL PRODUCT Joint Ease HERBAL PRODUCT Pectasol C lenalidomide (Revlimid) 15 MG capsule Take 15 mg by mouth daily. Patient taking Days 1-14 of 21 day cycle. losartan-hydrochlorothiazide 100-25 MG Tab tablet Take 1 tablet by mouth daily. MAGNESIUM PO Take by mouth. Multiple Vitamins-Minerals (OSTEOPRIME ULTRA PO) Take by mouth. NIFEdipine 30 MG (OSM) tablet XL Take 30 mg by mouth daily. Probiotic Product (PRO-BIOTIC BLEND PO) Take by mouth. valsartan-hydrochlorothiazide 320-12.5 MG tablet Take 1 tablet by mouth daily. Vitamin D-Vitamin K (D3 + K2 DOTS PO) Take 1 tablet by mouth daily. Vitamin D3 1000 units Tab tablet Take 1,000 Units by mouth daily. Labs I have reviewed all the laboratory tests completed for today's clinic visit 04/08/21: 3.5 / 11.8 / 378, uric acid 12.3, creatinine 0.92, calcium 10.2, TP 10.4, Albumin 4.1, 04/30/21: 4.3 / 11.5 / 315 05/08/21: 3.1 / 10.6 / 356 05/08/21: KLC 14.9 / LLC 7.6 / ratio 1.96 05/08/21: M protein 2.6, IgG kappa (3.1 on 04/08/21) IgG 3110 / IgA 58 / IgM < 10 05/08/21: Beta 2 = 3.9 24 hour urine - 186 mg/total protein M protein 06/02/21 - 4.3, 06/30/21 - 2.5! Outside labs show no monoclonal protein!! Radiology 04/30/21: PET/CT: - Focal lesion 3.1x2.4cm in cecum with SUV 10.1 - 3.7x2.4cm lesion in posterior L4 vertebral body SUV 2.8 - diffuse activity through remaining osseous structures and marrow 05/27/21: Colonoscopy: - diverticulosis, no masses and no lesions, no polyps Path 04/30/21: Marrow: 40-50% cellular with 60-70% kappa plasma cells, suggestive of associated fibrosis, flow: KLC, CD56, dim CD20, 46 XX, Assessment and plan Ms. Read is a very pleasant 71 y.o. woman with a diagnosis of myeloma. She'll continue in the very good care of Dr. Leyva locally. Will plan for non-transplant modality based care. In total, 35 minutes were spent in face to face clinic visit with patient today, of which >35 minutes were in counseling / coordination of care regarding r/b/a to transplant and other options. At this point, I think it's reasonable to consider maintenance. We discussed using either Velcade every other week or single agent lenalidomide. She prefers Velcade. See note to care team for all details and additional information from today's visit. documented in this encounter [facility] 02-16-2022 Instructions Paulo Cyr MD, PhD - 02/16/2022 3:20 PM EDT Patient education Your treatment Velcade/Dex/Revlimid From today's visit - recommend finishing Revlimid and then stopping this medication - would recommend doing a cycle of Velcade and dexamethasone then stop dexamethasone and proceed with every other week Velcade as a maintenance strategy documented in this encounter [facility] 11-03-2021 Chief complaint Narrative - Reported An interactive audio and video telecommunication system which permits real time communications between the patient (at the originating site) and provider (at the distant site) was utilized to provide this telehealth service.Tested positive for COVID this morning. Body aches. This note was generated by using Zykis software. It may contain errors in wording, punctuate, or spelling.We discussed her recent positive COVID-19 test. She checked it this morning. We are reminded that she had COVID-19 before. She has been vaccinated but did not have a recent booster. During our virtual visit she started crying out in pain and told me she was having pain and points to the right upper quadrant of her abdomen. She states that this happens periodically and has been doing so for the past couple of months. She states that she told her other providers about it and they did not seem to be concerned . She appeared quite uncomfortable but then it passed. I told her that given the degree of pain she is experiencing and wanted her to go to the emergency room but she refused to go. She has agreed to see me in a couple of weeks to evaluate her symptoms. -[facility] Work Phone: 10-13-2021 Instructions Paulo Cyr MD, PhD - 10/13/2021 4:13 PM EDT Patient education Your treatment Velcade (bortezomib), Revlimid (lenalidomide), and dexamethasone From today's visit - As long as tolerability is good and efficacy continues to improve, would recommend continuing on Velcade, Revlimid and dexamethasone. - I will send a note to you and Dr Carney about summary and recommendations documented in this encounter [facility] 10-13-2021 History of Present illness Narrative Care team: Jeet Lynne, Tj Cortez, Niels Santiago, Salvador Flores, Yusuf Leyva CC: Myeloma HPI Ms. Read is a very pleasant 71 y.o. woman diagnosed with myeloma. Since our first visit, she has begun therapy with Dr Leyva in [place]. She is doing well. We conducted a video visit today in lieu of in person due to the coronavirus pandemic. There is a nice response evident in her restaging labs. She is not interested in SCT. She could not foresee pursuing this option in any case, in terms of storing cells at this point even. She is tolerating treatment well. She looks wonderful today. ROS A complete ROS was obtained, no fever, no vomiting and is negative otherwise. PMH 1. Myeloma 2. HTN 3. Granuloma annulare 4. Obesity 5. GERD 6. Carpel tunnel 7. Hyperglycemia 8. Carotid stenosis 9. Hyperuricemia 10. Breast cancer (2015, lumpectomy/radiation) 11. COVID19 infection (April 2021) SH No tobacco, no alcohol use, 1 son (works at [email or web address]), 1 daughter, 1 great grand child now in [place], , her used to work for the [employer] [facility] FH Father with lung cancer BP 153/68 (BP Position: Sitting) Pulse 92 Temp 98.5 F (36.9 C) (Oral) Resp 18 Ht 1.461 m (4' 9.5 ) Wt 67.6 kg (149 lb) SpO2 95% BMI 31.68 kg/m Smoking Status Never Smoker NAD PERRL MASKED Neck supple Normal rate No wheezing NABS DUNN no c/c/e, non focal neuro exam No rash No bleeding Multiple myeloma Date of dx: 30-APR-2021 CRAB at dx: Anemia Bone MDE: CRAB, no MDE Protein marker: lgG and KLC ISS at dx: 1 R-ISS at dx: 2 DS at dx: 2a Karyotype at dx: Normal Bone at dx: 2-3 lytic lesions Comments: FISH at dx: CD 138 Select: Yes Probe Result Percentage 1q21 Gain 3 hyperdiploidy Rx1: Velcade (bortezomib), Revlimid (lenalidomide), and dexamethasone Start date: 11-JUN-2021 Stop date: Line of therapy: 1 Line best response: Rx best response: Stop reason: Current Outpatient Medications Medication Sig acyclovir 400mg 400 MG tablet Take 400 mg by mouth daily. allopurinol 100 MG tablet Take 100 mg by mouth daily. Alpha-Lipoic Acid 200 MG capsule Take 200 mg by mouth 2 times daily. aspirin 81 MG Chew Tab chewable tablet Chew 81 mg daily. DEXAMETHASONE PO Take 20 mg by mouth See admin instructions. Take 20 mg weekly for 2 weeks and off for 1 week famotidine (Pepcid) 40 MG tablet Take 40 mg by mouth See admin instructions. Take weekly for 2 weeks and off 1 week furOSEmide 40 MG tablet Take 40 mg by mouth daily. MAGNESIUM PO Take by mouth. Multiple Vitamins-Minerals (OSTEOPRIME ULTRA PO) Take by mouth. NIFEdipine 30 MG (OSM) tablet XL Take 30 mg by mouth daily. Vitamin D-Vitamin K (D3 + K2 DOTS PO) Take 1 tablet by mouth daily. amLODIPine 5 MG Tab take 5 mg by mouth daily.. Bioflavonoid Products (DEVON C PO) take 4,000 mg by mouth at bedtime. bisoprolol-hydrochlorothiazide 10-6.25 MG Tab take 2 tablets by mouth daily with breakfast. HERBAL PRODUCT 2 tablets 2 times daily. Graviola HERBAL PRODUCT ningxia HERBAL PRODUCT cyruta +t HERBAL PRODUCT cataplex HERBAL PRODUCT congaplex HERBAL PRODUCT emzymacore HERBAL PRODUCT [place] 3 HERBAL PRODUCT egyptian black radish losartan-hydrochlorothiazide 100-25 MG Tab tablet Take 1 tablet by mouth daily. Probiotic Product (PRO-BIOTIC BLEND PO) Take by mouth. valsartan-hydrochlorothiazide 320-12.5 MG tablet Take 1 tablet by mouth daily. Vitamin D3 1000 units Tab tablet Take 1,000 Units by mouth daily. Labs I have reviewed all the laboratory tests completed for today's clinic visit 04/08/21: 3.5 / 11.8 / 378, uric acid 12.3, creatinine 0.92, calcium 10.2, TP 10.4, Albumin 4.1, 04/30/21: 4.3 / 11.5 / 315 05/08/21: 3.1 / 10.6 / 356 05/08/21: KLC 14.9 / LLC 7.6 / ratio 1.96 05/08/21: M protein 2.6, IgG kappa (3.1 on 04/08/21) IgG 3110 / IgA 58 / IgM < 10 05/08/21: Beta 2 = 3.9 24 hour urine - 186 mg/total protein M protein 06/02/21 - 4.3, 06/30/21 - 2.5! Ongoing response noted, 0.5 g/dL at last check Radiology 04/30/21: PET/CT: - Focal lesion 3.1x2.4cm in cecum with SUV 10.1 - 3.7x2.4cm lesion in posterior L4 vertebral body SUV 2.8 - diffuse activity through remaining osseous structures and marrow 05/27/21: Colonoscopy: - diverticulosis, no masses and no lesions, no polyps Path 04/30/21: Marrow: 40-50% cellular with 60-70% kappa plasma cells, suggestive of associated fibrosis, flow: KLC, CD56, dim CD20, 46 XX, Assessment and plan Ms. Read is a very pleasant 71 y.o. woman with a diagnosis of myeloma. She'll continue in the very good care of Dr. Leyva locally. Will plan for non-transplant modality based care. In total, 35 minutes were spent in face to face clinic visit with patient today, of which >35 minutes were in counseling / coordination of care regarding r/b/a to transplant and other options. Would continue VRD for now for a couple more cycles and then consider active maintenance. See note to care team for all details and additional information from today's visit. Reviewed After Visit Summary with patient and family. Discussed any medication changes and recommendations from physician. All questions answered. Patient and family encouraged to call with any additional questions. documented in this encounter [facility] 09-22-2021 History of Present illness Narrative She is here for follow-up secondary to resistant hypertension. She is on allopurinol, Lasix, nifedipine, she also does use NSAIDs on a daily basisHer blood pressure today is 130/78. At home if she is taking her blood pressures and she is averaging in the 130 over 70s.She had blood work drawn on Septemberer blood work shows a hemoglobin of 12.0 her BUN is 15 with a creatinine of 0.64 her albumin is a little on the low side at 2.9 her electrolytes look pretty normal her bicarb is 30She is feeling well.No complaints.She has some swelling.She is trying to miner pick her activity. [facility] Jared 3 DO Work Phone: 07-31-2021 Note Therapy Diagnosis Assessed Left shoulder pain (719.41) (M25.512) Shoulder pain, right (719.41) (M25.511) Plan Goals: Goals set and discussed today. Pt will demonstrate independence and compliance with HEP and self management, by week 2, goal met Activity Limitation: Decrease disability as assessed by QDASH to less than or equal to 25% disability for improved QOL , by week 4, goal met Pain: Decrease max pain to less than or equal to 2/10 for improved QOL. , by week 4, goal met Range Of Motion/Joint Mobility: Increase R GH scaption AROM to 145 or better without pain for improved ability to reach overhead, by week 4, goal met Strength: Increase R and L GH strength to 4+/5 throughout or better for improved ability to lift and complete cleaning chores, by week 4, goal partially met Frequency and duration: No further visits planned. Discharge patient:. Assessment Pt has attended 8 visits for shoulder pain consisting of evaluation, ther ex, manual, and HEP. Has benefited from PT as evidenced by decreased pain, increased ROM since eval. At this time, pt has knowledge/skills to progress independently at home via HEP. Therefore, PT will be discharged. Response to treatment: no change in pain. Adult Risk Screening There are no spiritual/cultural practices/values/needs that are important to know Initial Fall Risk Screening: LAURI has not fallen in the last 6 months. LAURI does not have a fear of falling. She does not need assistance with sitting, standing or walking. Does not need assistance walking in her home. She does not need assistance in an unfamiliar setting. The patient is not using an assistive device. Fall Risk Screening: Patient is identified as a fall risk. Care Plan: Low Risk: Environmental for all patients and low risk patients: Offer assistance as needed or requested, keep environment free of obstacles, keep floor clean and dry, keep room lighting, wheelchair brakes on, bed/ stretcher locked and in low position if applicable, non-slip footwear if applicable, walker/cane available if needed, side rails up if applicable and pre-emptive toileting. Pain Scale: On a scale of 0 to 10, the patient rates the pain at 0. Please identify location of pain: right shoulder pain. Insurance Insurance reviewed Visit number: 8 supervising PT MY Medicare, [facility] Supplement Onset Date: 2020 Medicare Certification Period: Beginnin2021 Endin2021 Subjective Patient reports:. Compliant with HEP. Denies pain in shoulders. Feels like symptoms have improved since start of PT. Home program performing as directed: Yes. Precautions: none. Fall Risk: low relevant med hx: currently undergoing tx for cancer. Objective Ortho R GH flex AROM 147, abd 142 L GH flex AROM 142, abd 165 R GH MMT flex 4/5, abd 4/5, IR 4+/5, ER 4+/5 L GH MMT flex 4/5, abd 4/5, IR 4+/5, ER 4+/5 QDASH 12.5% disability. Treatment Time in clinic started at 11:20 am Time in clinic ended at 11:50 am Total time in clinic is 30 minutes. Total timed code time is 25 minutes. Therapeutic exercise (63140): timed minutes 34, units 2 . pulleys scaption x 3 min tami GH rows, pink tube, 3 x 10 B shoulder ext, pink tube, 2x10 R and L GH IR with towel roll green TB 2 x 10 R and L GH ER with towel roll green TB 2 x 10 Not today tricep ext with Green TB 2 x 10 E (P) supine R GH with cane flex AAROM 2 x 10 UT stretch 2x20? (X) D1 AND D2 x10 0# (N) IR stretch with green strap x10 5? hold Not this date Shoulder ISO x10 3? hold -flex,ext,abd,add Scap retraction x10 shoulder scaption AAROM seated table slide supine R GH ER at 45* abd AAROM 2 x 10 cross arm adduction stretch R 3 x 10 . Manual Therapy (44898):. supine PROM R GH flexion, scaption, ER at 45* abd X STW; to R UT and upper arm X. Provided today: a personalized home program (Scanned) and education . pulleys and scaption HEP 07/28/11 [id number], provided and reviewed with patient. 'Scores and Scales' Signatures Electronically signed by : Jeanne Mason PT; Jul 31 2021 1:07PM EST (Author) Reviewed by : Tj Cortez DO; Aug 02 2021 7:10PM EST [id number] 04-21-2021 Chief complaint Narrative - Reported An interactive audio and video telecommunication system which permits real time communications between the patient (at the originating site) and provider (at the distant site) was utilized to provide this telehealth service.Tested positive for COVID 04/21/21, Has had symptoms since 04/19/21. C/O Sore throat, Fever, Congestion, sinus pressure and cough. This note was generated by using Zykis software. It may contain errors in wording, punctuate, or spelling.She indicates that she recently developed a sore throat with fever and congestion with sinus pressure and cough and decided to do a test for Covid yesterday which came back positive. She also recently was diagnosed with multiple myeloma. We discussed her immune compromised condition and we discussed doing the monoclonal antibody infusion treatment. I explained that she can have reaction to this but she will be monitored. We also discussed the extreme importance of getting her vaccines. I have encouraged her to get her flu vaccine and pneumonia vaccine in the past and I explained that now it is more imperative than ever to get protected. She did have the [place] vaccine and last injection was July 24.. I also had her check her blood pressure in front of me and I was able to read her blood pressure off of the monitor. We did conduct a review of systems. BP was high. [facility] Work Phone: 10-21-2020 History of Present illness Narrative She is here for follow-up secondary to resistant hypertension with peripheral edema and volume overload.She has a blood pressure readings here with her from home. She has blood pressure readings from September and October all the way through the present with blood pressure readings every day to every 2 to 3 days.At home her blood pressure readings seem to be running fairly consistently. Her blood pressures are reading anywhere from 1 20-1 40 for the most part there is a few readings below 120 and there is a few readings above 140 however especially lately her blood pressure has been pretty stable and possibly even ranging from the 1 teens to the 130 range more consistently. She does not have many high blood pressure readings and her blood pressure seems to be well controlled at this timeShe is currently on valsartan 320 mg nifedipine 30 mg and furosemide 40 mg.She had blood work drawn on March 13Her metabolic panel looks pretty good at this time her BUN is 22 with a creatinine of 0.89 the only major abnormality is her sodium is low at 129 and she has had some low sodium readings recently.She states she is doing well.NO issues.Swelling is good.Drinks 32 ounces of water, 1 pop and 12-16 ounces of coffee.Sh eonly drinks when she is thirsty. [facility] Jared 3 DO Work Phone: 10-21-2020 History of Present illness Narrative She is here for follow-up secondary to resistant hypertension with peripheral edema and volume overload.She has a blood pressure readings here with her from home. She has blood pressure readings from September and October all the way through the present with blood pressure readings every day to every 2 to 3 days.At home her blood pressure readings seem to be running fairly consistently. Her blood pressures are reading anywhere from 1 20-1 40 for the most part there is a few readings below 120 and there is a few readings above 140 however especially lately her blood pressure has been pretty stable and possibly even ranging from the 1 teens to the 130 range more consistently. She does not have many high blood pressure readings and her blood pressure seems to be well controlled at this timeShe is currently on valsartan 320 mg nifedipine 30 mg and furosemide 40 mg.She had blood work drawn on March 13Her metabolic panel looks pretty good at this time her BUN is 22 with a creatinine of 0.89 the only major abnormality is her sodium is low at 129 and she has had some low sodium readings recently.She states she is doing well.NO issues.Swelling is good.Drinks 32 ounces of water, 1 pop and 12-16 ounces of coffee.Sh eonly drinks when she is thirsty. [facility] 3 DO Work Phone: [facility] Diagnosis Multiple myeloma, remission status unspecified [facility] Diagnosis Medicare annual wellness visit, initial- Primary HTN (hypertension), benign Essential hypertension, benign Multiple myeloma not having achieved remission ([facility]) Gastroesophageal reflux disease without esophagitis Esophageal reflux Hypertriglyceridemia Pure hyperglyceridemia Prediabetes Other abnormal glucose Obesity (BMI 30.0-34.9) documented in this encounter [facility] Work Phone: Evaluation note* Diagnosis Spinal enthesopathy, lumbar region (CMS/HCC)- Primary HTN (hypertension), benign Essential hypertension, benign Gastroesophageal reflux disease without esophagitis Esophageal reflux Hypertriglyceridemia Pure hyperglyceridemia Obesity, morbid ([facility]/HCC) Morbid obesity Prediabetes Other abnormal glucose Impacted cerumen of right ear Impacted cerumen documented in this encounter [facility] Work Phone: History of Present illness Narrative* The patient is being seen for the subsequent annual wellness visit. * Past Medical, Surgical and Family History: reviewed and updated in chart. * Medications and Supplements: Review of all medications by a prescribing practitioner or clinical pharmacist (such as prescriptions, OTCs, herbal therapies and supplements) documented in the medical record. * No, the patient is not using opioids. * Patient Self Assessment of Health Status: fair. * Tobacco use: Non-User * Alcohol use: Non-User * Illicit drug use: Non-User * Current diet: unhealthy diet, does consume adequate fluids and does consume caffeine. * Exercise Frequency: infrequently. * Depression/Suicide Screening: . * During the past 2 weeks, the patient has not felt down, depressed or hopeless. * During the past 2 weeks, the patient has not felt little interest or pleasure in doing things. * Hearing Impairment: none. * Cognitive Impairment: No cognitive impairment observed. * Bathing: performs independently. * Dressing: performs independently. * Walking: performs independently. * Toileting: performs independently. * Feeding: performs independently. * Personal Hygiene: performs independently. * Bowels: continent. * Bladder: occasional accident. * Managing Finances: performs independently. * Shopping: performs independently. * Managing Medications: performs independently. * Housework / Basic Home Maintenance: performs independently. * Handling Transportation: performs independently. * Preparing Meals: performs independently. * Falls Risk Screening:. LAURI has not fallen in the last 6 months. Her fall did not result in injury. * Home safety risk factors: no grab bars in the bathroom. * Advance directives:. Advanced Care Planning discussed and documented advance care plan or surrogatedecision maker documented in the medical record. Patient has no living will. Patient has no healthcare POA. -[facility] Work Phone: History of Present illness Narrative* She is here for follow-up secondary to resistant hypertension. At her last visit we stopped her valsartan as her creatinine did bump up. I also encouraged her to be careful with her NSAID use. She was going to go back on the nifedipine she was going to check her blood pressure daily and see how shewas doing. * She does have her blood pressure readings here with her from home. Her blood pressure at home is actually running very good and her blood pressures are all within a very good reasonable normal range actually. * We did recheck her blood work. It was drawn on June 30 * Her latest blood work that we have on her renal function shows a creatinine of 1.14 * She is on allopurinol Lasix 40 mg and then nifedipine as stated from her last visit * She is feeling ok. * She broke her tooth. * She also has muscle pain pretty much all over but has been dealing with this for some time. [facility] [place] Jared 3 DO Work Phone: History of Present illness Narrative* Patient is a 71 year female who presents with signs and symptoms consistent with diagnosis of R shoulder pain: increased pain, decreased shoulder AROM, decreased shoulder, postural muscle, and upper extremity strength, decreased ability as assessed by QDASH. Patient would benefit from skilled PT todecrease pain, increase shoulder AROM, increase shoulder/postural muscle/upper extremity strength, i ncrease ability as assessed by QDASH for return to PLOF: able to reach overhead and wash bathtub without increased pain. Rehab potential is good due to motivation to participating in PT; however, medical comorbidities including cancer may affect progress in PT. At initial evaluation, patient education was provided on shoulder AAROM. Overall, at end of treatment session, patient reports increased soreness, denies increased pain. * Clinical Presentation: Stable and/or uncomplicated characteristics. * Level of Complexity: low * Problem List: activity limitations, ADLs/IADLs/self care skills, decreased functional level, decreased knowledge of HEP, flexibility, pain, posture, range of motion/joint mobility and strength. [facility] Work Phone: History of Present illness NarrativePatient identified by name and date of . Patient was able to tolerate progression of ROM and strengthening w/o increased Sx. She required cues with form and motion with AAROM. She presented withpalpable tension in R UT and limited ROM with PROM. [facility] Work Phone: History of Present illness NarrativeC/o increased R UT pain after GH rows, decreased with STM. Added pulleys to clinic program and HEP,replaced isometric IR with TB IR. Cont progressing ROM/strengthening as lorena for increased ease raising arm overhead. [facility] Work Phone: History of Present illness NarrativePatient had many questions regarding her current HEP, plus updated HEP and added resistance ex's. Provided handout, door anchor, and bands (orange, green, blue). Deferred manual treatment secondary to time constraints as more time spent with ther-ex and patient education. Good tolerance to session with patient denying increase in symptoms, only mild fatigue, post-treatment. [facility] Work Phone: History of Present illness Narrative* Added tricep ext to increase upper arm strength as pt reports difficulty pushing to get out of bed.Pt reports stretch sensation at end range R GH PROM scaption/flexion, denies pain. Cont progressingROM/strengthening as lorena for increased ease lifting casserole dishes out of oven. * Response to treatment: no change in pain. [facility] Work [facility]: History of Present illness NarrativePatient identified by name and date of . Patient required cues to slow down with exercises throughout treatment She demonstrated fair tolerance to progression of strengthening. She reported increased Sx with bwd UBE. She presented with palpable tension in R UT that responded well to STW and addition of UT stretch. [facility] Work [facility]: Hisovcv of Present illness Narrative* Pt has attended 8 visits for shoulder pain consisting of evaluation, ther ex, manual, and HEP. Has benefited from PT as evidenced by decreased pain, increased ROM since eval. At this time, pt has knowledge/skills to progress independently at home via HEP. Therefore, PT will be discharged. * Response to treatment: no change in pain. [facility] Work Phone: Reason for referral (narrative)* Consultation (Routine) - Authorized Specialty Diagnoses / Procedures Referred By Tobin suero Referred To Contact Primary Care Diagnoses HTN (hypertension), benign Gastroesophageal reflux disease without esophagitis Hypertriglyceridemia Procedures Follow Up In Primary Care Tj Cortez DO [address] [facility] [place] [address] Referral ID Status Reason Start Date Expiration Date V isits Requested Visits Authorized [id number] Authorized 08/26/2022 02/22/2023 [address] [facility] Work Phone: reason for visit Narrative* Initial Evaluation . right shoulder pain. * Referred by: Dr. Cortez [facility] [place] Work Phone: Summary Purpose Family History No Family History Records Found Mother Name Dates Details Family history of hyperchole sterolemia(V18.19, Z83.42) Status:Active Father Name Dates Details Family history of lung cance r(V16.1, Z80.1) Status:Active Sister Name Dates Details Family history of thyroid di sease(V18.19, Z83.49) Status:Active Mother Name Dates Details Family history of hyperchole sterolemia(V18.19, Z83.42) Status:Active Father Name Dates Details Family history of lung cance r(V16.1, Z80.1) Status:Active Sister Name Dates Details Family history of thyroid di sease(V18.19, Z83.49) Status:Active Mother Name Dates Details Family history of hyperchole sterolemia(V18.19, Z83.42) Status:Active Father Name Dates Details Family history of lung cance r(V16.1, Z80.1) Status:Active Sister Name Dates Details Family history of thyroid di sease(V18.19, Z83.49) Status:Active Unknown Family Member Name Dates Details Family history of thyroid di sease: Sister(V18.19, Z83.49) Status:Active Family history of lung cance r: Father(V16.1, Z80.1) Status:Active Family history of hyperchole sterolemia: Mother(V18.19, Z83.42) Status:Active Unknown Family Member Name Dates Details Family history of thyroid di sease: Sister(V18.19, Z83.49) Status:Active Family history of lung cance r: Father(V16.1, Z80.1) Status:Active Family history of hyperchole sterolemia: Mother(V18.19, Z83.42) Status:Active Unknown Family Member Name Dates Details Family history of hyperchole sterolemia: Mother(V18.19, Z83.42) Status:Active Family history of lung cance r: Father(V16.1, Z80.1) Status:Active Family history of thyroid di sease: Sister(V18.19, Z83.49) Status:Active Unknown Family Member Name Dates Details Family history of hyperchole sterolemia: Mother(V18.19, Z83.42) Status:Active Family history of lung cance r: Father(V16.1, Z80.1) Status:Active Family history of thyroid di sease: Sister(V18.19, Z83.49) Status:Active Unknown Family Member Name Dates Details Family history of hyperchole sterolemia: Mother(V18.19, Z83.42) Status:Active Family history of lung cance r: Father(V16.1, Z80.1) Status:Active Family history of thyroid di sease: Sister(V18.19, Z83.49) Status:Active Unknown Family Member Name Dates Details Family history of hyperchole sterolemia: Mother(V18.19, Z83.42) Status:Active Family history of lung cance r: Father(V16.1, Z80.1) Status:Active Family history of thyroid di sease: Sister(V18.19, Z83.49) Status:Active Unknown Family Member Name Dates Details Family history of hyperchole sterolemia: Mother(V18.19, Z83.42) Status:Active Family history of lung cance r: Father(V16.1, Z80.1) Status:Active Family history of thyroid di sease: Sister(V18.19, Z83.49) Status:Active Unknown Family Member Name Dates Details Family history of hyperchole sterolemia: Mother(V18.19, Z83.42) Status:Active Family history of lung cance r: Father(V16.1, Z80.1) Status:Active Family history of thyroid di sease: Sister(V18.19, Z83.49) Status:Active Unknown Family Member Name Dates Details Family history of hyperchole sterolemia: Mother(V18.19, Z83.42) Status:Active Family history of lung cance r: Father(V16.1, Z80.1) Status:Active Family history of thyroid di sease: Sister(V18.19, Z83.49) Status:Active Unknown Family Member Name Dates Details Family history of hyperchole sterolemia: Mother(V18.19, Z83.42) Status:Active Family history of lung cance r: Father(V16.1, Z80.1) Status:Active Family history of thyroid di sease: Sister(V18.19, Z83.49) Status:Active Unknown Family Member Name Dates Details Family history of hyperchole sterolemia: Mother(V18.19, Z83.42) Status:Active Family history of lung cance r: Father(V16.1, Z80.1) Status:Active Family history of thyroid di sease: Sister(V18.19, Z83.49) Status:Active Unknown Family Member Name Dates Details Family history of hyperchole sterolemia: Mother(V18.19, Z83.42) Status:Active Family history of lung cance r: Father(V16.1, Z80.1) Status:Active Family history of thyroid di sease: Sister(V18.19, Z83.49) Status:Active Unknown Family Member Name Dates Details Family history of hyperchole sterolemia: Mother(V18.19, Z83.42) Status:Active Family history of lung cance r: Father(V16.1, Z80.1) Status:Active Family history of thyroid di sease: Sister(V18.19, Z83.49) Status:Active Unknown Family Member Name Dates Details Family history of hyperchole sterolemia: Mother(V18.19, Z83.42) Status:Active Family history of lung cance r: Father(V16.1, Z80.1) Status:Active Family history of thyroid di sease: Sister(V18.19, Z83.49) Status:Active Unknown Family Member Name Dates Details Family history of hyperchole sterolemia: Mother(V18.19, Z83.42) Status:Active Family history of lung cance r: Father(V16.1, Z80.1) Status:Active Family history of thyroid di sease: Sister(V18.19, Z83.49) Status:Active Unknown Family Member Name Dates Details Family history of hyperchole sterolemia: Mother(V18.19, Z83.42) Status:Active Family history of lung cance r: Father(V16.1, Z80.1) Status:Active Family history of thyroid di sease: Sister(V18.19, Z83.49) Status:Active Unknown Family Member Name Dates Details Family history of hyperchole sterolemia: Mother(V18.19, Z83.42) Status:Active Family history of lung cance r: Father(V16.1, Z80.1) Status:Active Family history of thyroid di sease: Sister(V18.19, Z83.49) Status:Active Unknown Family Member Name Dates Details Family history of hyperchole sterolemia: Mother(V18.19, Z83.42) Status:Active Family history of lung cance r: Father(V16.1, Z80.1) Status:Active Family history of thyroid di sease: Sister(V18.19, Z83.49) Status:Active Unknown Family Member Name Dates Details Family history of thyroid di sease: Sister(V18.19, Z83.49) Status:Active Family history of lung cance r: Father(V16.1, Z80.1) Status:Active Family history of hyperchole sterolemia: Mother(V18.19, Z83.42) Status:Active Unknown Family Member Name Dates Details Family history of hyperchole sterolemia: Mother(V18.19, Z83.42) Status:Active Family history of lung cance r: Father(V16.1, Z80.1) Status:Active Family history of thyroid di sease: Sister(V18.19, Z83.49) Status:Active Unknown Family Member Name Dates Details Family history of hyperchole sterolemia: Mother(V18.19, Z83.42) Status:Active Family history of lung cance r: Father(V16.1, Z80.1) Status:Active Family history of thyroid di sease: Sister(V18.19, Z83.49) Status:Active Unknown Family Member Name Dates Details Family history of hyperchole sterolemia: Mother(V18.19, Z83.42) Status:Active Family history of lung cance r: Father(V16.1, Z80.1) Status:Active Family history of thyroid di sease: Sister(V18.19, Z83.49) Status:Active Unknown Family Member Name Dates Details Family history of hyperchole sterolemia: Mother(V18.19, Z83.42) Status:Active Family history of lung cance r: Father(V16.1, Z80.1) Status:Active Family history of thyroid di sease: Sister(V18.19, Z83.49) Status:Active Unknown Family Member Name Dates Details Family history of hyperchole sterolemia: Mother(V18.19, Z83.42) Status:Active Family history of lung cance r: Father(V16.1, Z80.1) Status:Active Family history of thyroid di sease: Sister(V18.19, Z83.49) Status:Active Unknown Family Member Name Dates Details Family history of hyperchole sterolemia: Mother(V18.19, Z83.42) Status:Active Family history of lung cance r: Father(V16.1, Z80.1) Status:Active Family history of thyroid di sease: Sister(V18.19, Z83.49) Status:Active Unknown Family Member Name Dates Details Family history of hyperchole sterolemia: Mother(V18.19, Z83.42) Status:Active Family history of lung cance r: Father(V16.1, Z80.1) Status:Active Family history of thyroid di sease: Sister(V18.19, Z83.49) Status:Active Unknown Family Member Name Dates Details Family history of hyperchole sterolemia: Mother(V18.19, Z83.42) Status:Active Family history of lung cance r: Father(V16.1, Z80.1) Status:Active Family history of thyroid di sease: Sister(V18.19, Z83.49) Status:Active Unknown Family Member Name Dates Details Family history of hyperchole sterolemia: Mother(V18.19, Z83.42) Status:Active Family history of lung cance r: Father(V16.1, Z80.1) Status:Active Family history of thyroid di sease: Sister(V18.19, Z83.49) Status:Active Unknown Family Member Name Dates Details Family history of hyperchole sterolemia: Mother(V18.19, Z83.42) Status:Active Family history of lung cance r: Father(V16.1, Z80.1) Status:Active Family history of thyroid di sease: Sister(V18.19, Z83.49) Status:Active Unknown Family Member Name Dates Details Family history of hyperchole sterolemia: Mother(V18.19, Z83.42) Status:Active Family history of lung cance r: Father(V16.1, Z80.1) Status:Active Family history of thyroid di sease: Sister(V18.19, Z83.49) Status:Active Unknown Family Member Name Dates Details Family history of hyperchole sterolemia: Mother(V18.19, Z83.42) Status:Active Family history of lung cance r: Father(V16.1, Z80.1) Status:Active Family history of thyroid di sease: Sister(V18.19, Z83.49) Status:Active Unknown Family Member Name Dates Details Family history of hyperchole sterolemia: Mother(V18.19, Z83.42) Status:Active Family history of lung cance r: Father(V16.1, Z80.1) Status:Active Family history of thyroid di sease: Sister(V18.19, Z83.49) Status:Active Unknown Family Member Name Dates Details Family history of hyperchole sterolemia: Mother(V18.19, Z83.42) Status:Active Family history of lung cance r: Father(V16.1, Z80.1) Status:Active Family history of thyroid di sease: Sister(V18.19, Z83.49) Status:Active Advance Directives No Advanced Directives Records FoundNo Advanced Directives Records FoundNo Advanced Directives Records FoundNo Advanced Directives Records FoundNo Advanced Directives Records FoundNo Advanced Directives Records FoundNo Advanced Directives Records FoundNo Advanced Directives Records FoundNo Advanced Directives Records FoundNo Advanced Directives Records FoundNo Advanced Directives Records Found Chief Complaint * Pt is here today for a 6 month check up, C/O a spot under her right breast that is concerning to her. This note was generated by using [employer] software. It may contain errors in wording, punctuate, orspelling. * She is here today for her 6-month checkup. She noticed a spot underneath her right breast on her anterior chest wall which seems to be getting larger. It does appear rather atypical and measures 2-1/2 cm in its widest dimension. I will obviously have her see a numerical control nesting operator for an inspection. She is agreeable. Her blood pressure is excellent today. She states that she feels like her blood pressure has been too low and she has been getting systolic readings in the 1 teens. She states that 2 weeks ago she had a rather traumatic event whereby she and her were at a park and he accidentally slipped on a rock and he fell. Shortly after that she states he looked horrible and she described him as looked and green but he was still sitting up. She states she called 911 and the squad came but he refused to go to the hospital. She states since then she has not been feeling well. We also reviewed her laboratory test results today and she has had a rather abrupt change in her BUN andcreatinine. She states she has been taking dykh-via-vqgohzy ibuprofen and we discussed the extreme importance of avoiding those medications as they can cause kidney damage. We also talked about the effects of the diuretics and so forth. Because of the abrupt change I will have her get into Dr. Lynne sooner than her regularly scheduled appointment. We also went over her blood sugar which was slightly raised and she understands that healthy diet along with routine exercise and weight loss can reduce her risk of diabetes significantly. We also reviewed her cholesterol and I am very pleased to see her response to the gemfibrozil. She appears to be tolerating it well and we are providing a refill today. dropped off Fobt6 MO F/U LAB REVIEW6 MO F/U LAB REVIEW* Pt is here today for a 6 month check up, She is also due for her [facility] wellness exam. This note was ge nerated by using [employer]yk[employer] software. It may contain errors in wording, punctuate, or spelling. * She is here today for her 6-month checkup and we also completed her annual Medicare wellness visit.Since her last visit she has been very busy with specialists and unfortunately they discovered thatshe had multiple myeloma. She states that overall she is doing okay and undergoing treatment. We did conduct a full review of systems and we also screen for depression. She is coping well during thistime. We also reviewed recent laboratory test results and she brought a copy of lab work that was performed through [facility]. Her potassium level was good recently and her sodium level remains borderline low at 133. She has been seen by the director epidemiology, Dr. Lynne and he has been working on her hyponatremia. She states he indicated to liberalize her salt intake. She is also managed to lose several pounds over the past several months and reports she is feeling better in that regard. Herblood pressure is currently well controlled. We also went over the results of recent lab work. Her lab work from March was reviewed and her hemoglobin A1c came back at 6.0. We have discussed the notion of a prediabetic state and the importance of watching the diet, exercising regularly, and trying to get his close to ideal body weight as possible. She states she hurt her back recently and it was difficult to get up and move around. She states she is doing better now and doing more walking. We talked about doing an evaluation if she should suddenly get severe low back pain. She also has some issues with her right shoulder as she has had some chronic stiffness and pain. She is able to move her arm through a full arc of motion. She would like to partake in physical therapy and we will help get that ordered. We also went through the Medicare questionair. We also discussed the importance of preventative vaccines and I am still recommending that she get the flu vaccine along with the pneumonia vaccine and shingles vaccine. She has received the COVID-19 vaccination series. We also discussed cancer screening and she is up-to-date with her mammogram. She is due for a bone density and wediscussed ordering it to be done just prior to her next follow-up visit in 6 months. She states shewants to wait until she gets through her chemotherapy. She also plans on doing some yoga and is going to be going to a beginners class. Her hearing appears to be good as well as her memory. We also discussed the importance of advanced directives and she states she will be working on establishing a living will and power of state attorney for healthcare. We also talked about fall prevention and likely she has had no falls in the last 6 months. We do recommend that she put grab bars in the bathroom and avoid any unnecessary loose rugs as they can be a source of falls. I will be giving her a handout that goes over tips to reduce her risk of falls in the future. She states that she will also be working on improving her nutritional status and has a Nutri bullet to start doing more vegetables and so forth.. She is also been having some issues with postnasal drip and has been trying esni-hcp-giiypnk medications without much success. I have recommended that we try Flonase nasal spray and I sent a pre scription to her pharmacy. She will let me know if this is ineffective. 2 WEEK FUV- HTN* Pt is here today with the C/O gout in right ankle, right knee pain. This note was generated by using [employer] software. It may contain errors in wording, punctuate, or spelling. * She is here today for evaluation of an acute onset of pain and swelling involving her right ankle and knee. She states she was worried about some Swelling so she appropriately went to the emergency department on Tuesday night. Because it was late Tuesday [facility] did not have a Doppler to do a test so they redirected her to an emergency room in [place]. She went there and they do the Doppler and thankfully she did not have any evidence of a DVT. We are reminded that she has been diagnosed with myeloma. She also has a history of gout and is on allopurinol. 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 I will be sending her for an x-ray of her knee and have agreed to call her with results. I am also giving her a small prescription for indomethacin to be taken 3 times a day with food for the next 5 days. I told her that she may not have to take it for the full 5 days and usually with gout he will get almost immediate relief after taking just a few tablets. I am also giving her handout on gout the talks about dietary modifications and so forth. We did conduct a review of systems and she will let us know if this does not help the situation. * 3 mo fuv * labs 09/22 * Pt presents for 2 wk COVID f/u; continues to have left side facial pain. This note was generated byusing Zykis software. It may contain errors in wording, punctuate, or spelling. * She is here today for evaluation of 2 conditions. First of all she contracted COVID-19 about 2 weeks ago and was placed on the antiviral medication. Subsequently she developed a lot of sinus symptomsand ended up the dentist. The dentist diagnosed her as having acute sinusitis and prescribed Amoxilwhich she had started back Tuesday. She states she was having some left ear pain and sinus pressure but today she feels like her symptoms have made a turn for the better. She currently is no longerhaving pain in the left ear and neck region. We did conduct a full review of systems and we decidedto stay course with her current treatment. She will complete the Amoxil for the full 10-day course and of course she will call if she feels like things or not going according to plan. She is also been having some right-sided pain in the anterior lateral rib region. She states she saw her chiropractor and he did x- rays many months ago of the thoracic spine. She denies any injuries or traumas but she states at times it feels severe and it is definitely reproducible when I push on the rib cage. She does not appear to have abdominal pathology but more pathology of the rib cage based on my exam today. Her chiropractor did thoracic spine film. I will send her for an x-ray of the ribs and I have agreed to call her with results. We are reminded that she is currently under treatment for multiple myeloma and she does understand that sometimes myeloma lesions can appear in the rib region. We also discussed having her contact her specialist and let them know she is currently being treated for sinusitis as they may want to delay her infusion treatment for another week or so. I have agreed to call her with the results of the x-rays. * Pt is here today for a 6 month check up, Review labs. This note was generated by using [employer] software. It may contain errors in wording, punctuate, or spelling. * She is here today for her 6-month checkup. Her blood pressure is excellent today. We did conduct a review of systems and she states that her fatigue is chronic but mild. 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 She states she has seen a chiropractor but she is interested in trying massage therapy. I have written a prescription and I told her at the very least this will help defray the taxes involved with the service and she can check with insurance to see if it would be covered for her maintherapy. She is to call if her neck issues are worsening as opposed to getting better. She also explains that on occasion she gets a rash in the groin region. She states she is not really thinking that its yeast and she does not really have it today. We talked about making an appointment so we could see when it occurred and also possibly taking a picture of it for future reference. She has made an appointment with dermatology for various skin concerns and again I have encouraged her to take a picture should her rash recur. We also discussed her most recent laboratory test results as her sodium has normalized. She does get lab work quite frequently and we briefly discussed the cholesterol profile from March. We decided that we will check cholesterol just prior to her next visit. I also s trongly recommend she get the season's flu vaccine and overall she I think she is doing well everything is going on. Additional Source Comments INFORMATION SOURCE (unrecogn ized section and content) DATE CREATED AUTHOR AUTHOR'S ORGANIZ ATION 12/05/2018 [facility] DATE CREATED AUTHOR AUTHOR'S ORGANIZ ATION 11/01/2019 [facility] DATE CREATED AUTHOR AUTHOR'S ORGANIZ ATION 06/16/2021 [facility] DATE CREATED AUTHOR AUTHOR'S ORGANIZ ATION 08/28/2021 [facility] DATE CREATED AUTHOR AUTHOR'S ORGANIZ ATION 07/10/2022 [facility] DATE CREATED AUTHOR AUTHOR'S ORGANIZ ATION 08/27/2022 [facility] DATE CREATED AUTHOR AUTHOR'S ORGANIZ ATION 08/27/2022 [facility] DATE CREATED AUTHOR AUTHOR'S ORGANIZ ATION 03/26/2023 [facility] DATE CREATED AUTHOR AUTHOR'S ORGANIZ ATION 03/26/2023 [facility] DATE CREATED AUTHOR AUTHOR'S ORGANIZ ATION 04/06/2023 [facility] <item> Privacy Markings (unrecogniz ed section and content) Section Author: Keyona Reeves PROHIBITION ON REDISCLOSURE OF CONFIDENTIAL INFORMATION This notice accompanies a disclosure of information concerning a client made to you with the consent of such client. Reason for Visit (unrecogniz ed section and content) Reason Comments Follow-up 6 MO FUV. Right ear clogged. Been using ear drops all week. Specialty Diagnoses / Procedures Referred By Tobin suero Referred To Contact Primary Care Diagnoses HTN (hypertension), benign Gastroesophageal reflux disease without esophagitis Hypertriglyceridemia Procedures Follow Up In Primary Care Sophiely AnushaDO [address] [facility] [place] [address] Referral ID Status Reason Start Date Expiration Date Visits Re quested Visits Authorized [id number] Closed 08/26/2022 02/22/2023 1 1 Care Teams (unrecognized sec tion and content) [employer] Brazer/Solderer Relationship Specialty Start Date End Date Tj CortezDO PCP - General Internal Medicine 12/27/14 Niels Santiago MD [address] [place] [address] Oncologist Hematology and Oncology 05/27/21 Paulo Cyr MD, PhD [address] [place] [address] Vice President Quality Hematology 05/27/21 [employer] Brazer/Solderer Relationship Specialty Start Date End Date KeyonaTjbautista Tavares DO [address] [place] [address] PCP - General 01/23/19 Jeet Lynne DO [address] [place] [id number] Nephrology 08/26/22 [employer] Brazer/Solderer Relationship Specialty Start Date End Date Tj Cortez DO [address] [place] [address] PCP - General 01/23/19 Jeet Lynne DO [address] Coleman [address] [place] [address] Nephrology 08/26/22 FOR RECORDS PERTAINING TO PATIENTS WHO ARE OR HAVE BEEN ENROLLED IN A CHEMICAL DEPENDENCY/SUBSTANCEABUSE PROGRAM, SOME INFORMATION MAY BE OMITTED. This clinical summary was aggregated from multiple sources. Caution should be exercised in using it in the provision of clinical care. This summary normalizes information from multiple sources, and as a consequence, information in this document may materially change the coding, format and clinical context of patient data. In addition, data may be omitted in some cases. CLINICAL DECISIONS SHOULD BE BASED ON THE PRIMARY CLINICAL RECORDS. [facility]. provides no warranty or guarantee of the accuracy or completeness of information in this document.
== END | disposition home or self-care (01) ==
LOC: MRI 10:08
PROVIDERS: PCP Internal Medicine; Referring Provider Nurse Practitioner Family; Visit Provider Nurse Practitioner Family
DX: C90.00 Multiple myeloma not having achieved remission (principal)
CPT/HCPCS: 72157; 72158; A9575

== ENCOUNTER → 2023-06-21 | Outpatient (CLI) | payer MEDICARE, OTHER, SELFPAY ==
--- NOTE | 2023-06-21 10:37 | BI_ITS ---
MAMMOGRAPHY - BILATERAL SCREENING REASON FOR EXAM: Female, 73 years old. Routine annual screening examination. PERTINENT HISTORY: Personal history of breast cancer. History of prior bilateral lumpectomies with radiation treatment. TECHNIQUE: Digital bilateral breast sharmila (3D mammographic acquisition) in the CC and MLO projections. 2-D mediolateral oblique (MLO) and craniocaudad (CC) views of both breasts were obtained. CAD: Full Field Digital Mammography with Computer Added Detection was performed. COMPARISON: Comparison is made with prior study dated December 06, 2022 and June 05, 2021. FINDINGS: Breast Composition: There are scattered areas of fibroglandular density. Stable densely calcified nodule in the deep central medial aspect of the left breast as well as in the deep central slightly medial aspect of the right breast. Postoperative scarring is seen. No other significant abnormalities are identified. There has been no significant change since the prior study. BI/SCRN MAMM (CAD)W/SHARMILA BILAT IMPRESSION: Stable bilateral screening mammogram. Yearly follow-up mammogram recommended. (A) ASSESSMENT CATEGORY: BIRADS Category 2: Benign. A letter regarding these results will be sent to the patient by the facility within 30 days. Approximately 10% of breast cancers are not detected by mammography. A normal mammogram should not delay biopsy of a clinically suspicious abnormality. [id number] Electronically Signed: Qasim Roman MD at 14:13 EST ,
--- OUTSIDE RECORDS SUMMARY | 2023-06-21 11:24 | XMS RPT_ITS | CCD ---
Author Name Unknown Address [address] [place] [address] Organization [facility] Care Team Providers Care Intermediate Card Tender Name Role Phone BHARATH ACEVES UVALDO Unavailable Unavailable ROYAL, TJ S. Unavailable Unavailable LIZBETH BERGERON Unavailable Unavailable ROYAL, TJ S. Unavailable Unavailable Carville, Tj Unavailable Unavailable Carville, Tj S Unavailable Unavailable YoungMaddi Unavailable Unavailable Carville, Tj S Unavailable Unavailable Unavailable Carville, Tj Unavailable Ned Wilkes Unavailable Jeet Lynne Unavailable Carville DO, Tj Primary Care Provider Pamela VILLANUEVA, Niels Unavailable Yuval VILLANUEVA, PhD, Paulo M Unavailable [phone] Unavailable Unavailable Carville DO, Tj S Primary Care Provider Jeet Lynne DO Unavailable Carville, Tj Primary Care Unavailable Carville, Tj Referring Unavailable Carville, Tj Attending Unavailable Carville, Tj Primary Care Unavailable Carville, Tj Referring Unavailable Carville, Tj Attending Unavailable Carville, Tj Primary Care Unavailable Carville, Tj Referring Unavailable Carville, Tj Attending Unavailable Jeet Lynne Referring Unavailable Jeet Lynne Attending Unavailable Carville, Tj Primary Care Unavailable Carville, Tj Referring Unavailable Carville, Tj Attending Unavailable Carville, Tj Primary Care Unavailable Carville, Tj Attending Unavailable Carville, Tj Primary Care Unavailable Carville, Tj Primary Care Unavailable Carville, Tj Attending Unavailable Bachelder, Dr. Jerrod Douglas Attending Chantell vailable Tj Cortez Primary Care Unavailable KIRSTEN CORTEZLY S Primary Care Unavailable KIRSTEN CORTEZLY Referring Unavailable PAULO CYR Attending Unavailable KIRSTEN CORTEZLY Primary Care Unavailable , TJ Primary Care Unavailable PAULO CYR Attending Unavailable PAULO CYR Referring Unavailable KIRSTEN CORTEZLY Primary Care Unavailable PAULO CYR Attending Unavailable PAULO CYR Referring Unavailable TJ CORTEZ Primary Care Unavailable PAULO CYR Attending Unavailable TJ CORTEZ Primary Care Unavailable KIRSTEN CORTEZLY Referring Unavailable ROYAL, TJ S Attending Unavailable , TJ S Referring Unavailable , TJ S Primary Care Unavailable KIRSTEN CORTEZLY S Attending Unavailable , TJ S Primary Care Unavailable TJ CORTEZ S Attending Unavailable TJ CORTEZ S Primary Care Unavailable Medications Current Medications Medication Drug Class(es) Dates Sig (Normalized) Sig (Original) acyclovir 400 mg oral tablet (20 sources) Herpesvirus Nucleoside Analog DNA Polymerase Inhibitor, Herpes Simplex Virus Nucleoside Analog DNA Polymerase Inhibitor, Herpes Zoster Virus Nucleoside Analog DNA Polymerase Inhibitor Start: 06-02-2021 take 1 tablet by mouth once daily acyclovir (Zovirax) 400 mg tablet Take 1 tablet (400 mg) by mouth once daily. For 30 days with the start of [...] Episodic Other ear and sense organ disorders (3 sources) Impacted cerumen in right ear; Translations: [...] Chronic Other nutritional; endocrine; and metabolic disorders (4 sources) Morbid obesity; Translations: [Morbid (severe) obesity due to excess calories] Onset: 03-24-2023 03-24-2023 Chronic Other nutritional; endocrine; and metabolic disorders (2 sources) Morbid (severe) obesity due to excess calories; Translations: [Morbid (severe) obesity due to excess calories (CMS/HCC)] Onset: 03-24-2023 Chronic Other nutritional; endocrine; and metabolic disorders (2 sources) Obesity, unspecified; Translations: [Obesity, unspecified] Onset: 06-26-2022 Chronic Other screening for suspected conditions (not mental disorders or infectious disease) (20 sources) Patient encounter status; Translations: [Special screening for malignant neoplasms of colon] Onset: 11-16-2017 06-08-2023 Episodic Past or Other Problems Problem Classification Problem Date Documented Da te Episodic/Chronic Cancer of breast (4 sources) Infiltrating duct carcinoma of breast; Translations: [...] Onset: 09-14-2021 Episodic Other lower respiratory disease (9 sources) Rib pain; Translations: [Chest pain, unspecified] Onset: 06-26-2022 06-26-2022 Episodic Other lower respiratory disease (4 sources) Pleurodynia; Translations: [Pleurodynia] Onset: 11-16-2021 Episodic Other nervous system disorders (20 sources) Carpal tunnel syndrome; Translations: [Carpal tunnel syndrome] Onset: 06-26-2022 Resolved: 08-26-2022 08-26-2022 Chronic Other non-traumatic joint disorders (2 sources) Pain in left shoulder; Translations: [Pain in joint, shoulder region] Onset: 06-26-2022 Resolved: 08-26-2022 08-26-2022 Episodic Other non-traumatic joint disorders (2 sources) Pain in right shoulder; Translations: [Pain in joint, shoulder region] Onset: 06-26-2022 Resolved: 08-26-2022 08-26-2022 Episodic Other nutritional; endocrine; and metabolic disorders (20 sources) Hyperuricemia; Translations: [Other abnormal blood chemistry] Onset: 06-26-2022 06-26-2022 Episodic Other skin disorders (20 sources) Skin lesion; Translations: [Unspecified disorder of skin and subcutaneous tissue] Onset: 06-26-2022 Resolved: 03-24-2023 06-26-2022 Episodic Other upper respiratory infections (20 sources) Acute upper respiratory infection; Translations: [Posterior rhinorrhea] Onset: 06-26-2022 06-26-2022 Episodic Residual codes; unclassified (20 sources) Past history of procedure; Translations: [Other specified personal history presenting hazards to health] Onset: 12-12-2018 Episodic Results Test Name Value Interpretation Reference Range Facil ity Vital Signs Date Time Vital Sign Value Performing Clinician Facility 06-08-2023 11:35-0500 Body height 144.8 cm [facility] Phone: [facility] 06-08-2023 11:35-0500 Body mass index (BMI) [Ratio] 36.57 kg/m2 [facility] Phone: [facility] 06-08-2023 11:35-0500 Body weight 76.66 kg [facility] Phone: [facility] 06-08-2023 11:35-0500 Diastolic blood pressure 78 mm[Hg] Tj Carville DO Work Phone: [facility] 06-08-2023 11:35-0500 Heart rate 77 /min Tj Carville DO Work Phone: [facility] 06-08-2023 11:35-0500 SaO2% (BldA) [Mass fraction] 98 % Tj Carville DO Work Phone: [facility] 06-08-2023 11:35-0500 Systolic blood pressure 150 mm[Hg] Tj Carville DO Work Phone: [facility] 03-24-2023 10:20-0400 Diastolic blood pressure 74 mm[Hg] Tj Carville DO Work Phone: [facility] 03-24-2023 10:20-0400 Systolic blood pressure 138 mm[Hg] Tj Carville DO Work Phone: [facility] 03-24-2023 10:00-0400 Body mass index (BMI) [Ratio] 36.57 kg/m2 Tj Carville DO Work Phone: [facility] 03-24-2023 10:00-0400 Body weight 76.66 kg Tj Carville DO Work Phone: [facility] 03-24-2023 10:00-0400 Heart rate 68 /min Tj Carville DO Work Phone: [facility] 03-24-2023 10:00-0400 SaO2% (BldA) [Mass fraction] 98 % Tj Carville DO Work Phone: [facility] 08-26-2022 09:19-0400 Body height 144.8 cm Tj Carville DO Work Phone: [facility] 08-26-2022 09:19-0400 Body mass index (BMI) [Ratio] 33.33 kg/m2 Tj Carville DO Work Phone: [facility] 08-26-2022 09:19-0400 Body weight 69.85 kg Tj Carville DO Work Phone: [facility] 08-26-2022 09:19-0400 Diastolic blood pressure 76 mm[Hg] Tj Carville DO Work Phone: [facility] 08-26-2022 09:19-0400 Heart rate 68 /min Tj Carville DO Work Phone: [facility] 08-26-2022 09:19-0400 SaO2% (BldA) [Mass fraction] 97 % Tj Carville DO Work Phone: [facility] 08-26-2022 09:19-0400 Systolic blood pressure 138 mm[Hg] Tj Carville DO Work Phone: [facility] 02-16-2022 14:47-0400 Body mass index (BMI) [Ratio] 31.75 kg/m2 Paulo Cyr MD, PhD Work Phone: [facility] 02-16-2022 14:47-0400 Body temperature 98.29 [degF] Paulo Cyr MD, PhD Work Phone: [facility] 02-16-2022 14:47-0400 Body weight 67.72 kg Paulo Cyr MD, PhD Work Phone: [facility] 02-16-2022 14:47-0400 Diastolic blood pressure 75 mm[Hg] Paulo Cyr MD, PhD Work Phone: [facility] 02-16-2022 14:47-0400 Heart rate 79 /min Paulo Cyr MD, PhD Work Phone: [facility] 02-16-2022 14:47-0400 Respiratory rate 16 /min Paulo Cyr MD, PhD Work Phone: [facility] 02-16-2022 14:47-0400 SaO2% (BldA) [Mass fraction] 93 % Paulo Cyr MD, PhD Work Phone: [facility] 02-16-2022 14:47-0400 Systolic blood pressure 154 mm[Hg] Paulo Cyr MD, PhD Work Phone: [facility] 02-04-2022 13:40-0400 Body height 144.78 cm Tj Tavares Carville [facility] Work [facility]: 02-04-2022 13:40-0400 Body mass index (BMI) [Ratio] 32.28 kg/m2 Tj Tavares Glaukos Work Phone[facility] Work [facility]: 02-04-2022 13:40-0400 Body surface area Derived from formula 1.59 m2 Tj Tavares Glaukos Work Phone[facility] Work Phone: 02-04-2022 13:40-0400 Body weight 67.67 kg Tj Tavares Carville Work [facility] Work Phone: 02-04-2022 13:40-0400 Diastolic blood pressure 70 mm[Hg] Tj Tavares Carville [facility] Work [facility]: 02-04-2022 13:40-0400 Heart rate 72 /min Tj Tavares Glaukos Work [facility] Work Phone: 02-04-2022 13:40-0400 SaO2% (BldA) [Mass fraction] 96 % Tj Tavares Glaukos Work [facility] Work Phone: 02-04-2022 13:40-0400 Systolic blood pressure 130 mm[Hg] Tj Cortez Work Phone: [facility] Work Phone: 11-16-2021 11:48-0400 Body height 144.78 cm Tj Cortez Work Phone: [facility] [facility] Work Phone: 11-16-2021 11:48-0400 Body mass index (BMI) [Ratio] 31.2 kg/m2 Tj Cortez Work Phone: [facility] [employer] [facility] Work Phone: 11-16-2021 11:48-0400 Body surface area Derived from formula 1.56 m2 Tj Cotrez Work Phone: [facility] [employer] [facility] Work Phone: 11-16-2021 11:48-0400 Body weight 65.4 kg Tj Cortez Work Phone: [facility] [employer] [facility] Work Phone: 11-16-2021 11:48-0400 Diastolic blood pressure 58 mm[Hg] Tj Cortez Work Phone: [facility] [employer] [facility] Work Phone: 11-16-2021 11:48-0400 Heart rate 77 /min Tj Cortez Work Phone: [facility] [employer] [facility] Work Phone: 11-16-2021 11:48-0400 SaO2% (BldA) [Mass fraction] 95 % Tj Cortez Work Phone: [facility] [employer] [facility] Work Phone: 11-16-2021 11:48-0400 Systolic blood pressure 132 mm[Hg] Tj Tavares Carville Work Phone: [facility] Work Phone: 10-13-2021 15:16-0400 Body height 146.1 cm Paulo Cyr MD, PhD Work Phone: [facility] 10-13-2021 15:16-0400 Body mass index (BMI) [Ratio] 31.68 kg/m2 Paulo Cyr MD, PhD Work Phone: [facility] 10-13-2021 15:16-0400 Body temperature 98.49 [degF] Paulo Cyr MD, PhD Work Phone: [facility] 10-13-2021 15:16-0400 Body weight 67.59 kg Paulo Cyr MD, PhD Work Phone: [facility] 10-13-2021 15:16-0400 Diastolic blood pressure 68 mm[Hg] Paulo Cyr MD, PhD Work Phone: [facility] 10-13-2021 15:16-0400 Heart rate 92 /min Paulo Cyr MD, PhD Work Phone: [facility] 10-13-2021 15:16-0400 Respiratory rate 18 /min Paulo Cyr MD, PhD Work Phone: [facility] 10-13-2021 15:16-0400 SaO2% (BldA) [Mass fraction] 95 % Paulo Cyr MD, PhD Work Phone: [facility] 10-13-2021 15:16-0400 Systolic blood pressure 153 mm[Hg] Paulo Cyr MD, PhD Work Phone: [facility] 10-01-2021 13:12-0400 Body height 146.05 cm Tj Anusha Work Phone: [facility] Work Phone: 10-01-2021 13:12-0400 Body mass index (BMI) [Ratio] 32.07 kg/m2 Tj S Carville Work Phone: [facility] Jared 3 DO Work Phone: 10-01-2021 13:12-0400 Body surface area Derived from formula 1.61 m2 Tj S Carville Work Phone: [facility] 3 DO Work Phone: 10-01-2021 13:12-0400 Body weight 68.4 kg Tj S Carville Work Phone: [facility] 3 DO Work Phone: 10-01-2021 13:12-0400 Diastolic blood pressure 78 mm[Hg] Tj S Carville Work Phone: [facility] 3 DO Work Phone: 10-01-2021 13:12-0400 Heart rate 63 /min Tj S Carville Work Phone: [facility] 3 DO Work Phone: 10-01-2021 13:12-0400 Systolic blood pressure 130 mm[Hg] Tj S Carville Work Phone: [facility] 3 DO Work Phone: 08-24-2021 09:58-0400 Body height 146.05 cm Tj S Carville Work Phone: [facility] Work Phone: 08-24-2021 09:58-0400 Body mass index (BMI) [Ratio] 30.69 kg/m2 Tj S Carville Work Phone: [facility] Work Phone: 08-24-2021 09:58-0400 Body surface area Derived from formula 1.58 m2 Tj S Carville Work Phone: [facility] Work Phone: 08-24-2021 09:58-0400 Body weight 65.46 kg Tj Cortez Work Phone: [facility] Work Phone: 08-24-2021 09:58-0400 Diastolic blood pressure 74 mm[Hg] Tj S Carville Work Phone: [facility] Work Phone: 08-24-2021 09:58-0400 Heart rate 71 /min Tj Tavares Carville Work Phone: [facility] Work Phone: 08-24-2021 09:58-0400 SaO2% (BldA) [Mass fraction] 98 % Tj Cortez Work Phone: [facility] Work Phone: 08-24-2021 09:58-0400 Systolic blood pressure 128 mm[Hg] Tj Cortez Work Phone: [facility] Work Phone: 08-22-2021 21:52-0400 Diastolic blood pressure 84 mm[Hg] Tj Carville Other Phone: [facility] 08-22-2021 21:52-0400 Heart rate 71 /min Tj Carville Other Phone: [facility] 08-22-2021 21:52-0400 Respiratory rate 17 /min Tj Carville Other Phone: [facility] 08-22-2021 21:52-0400 SaO2% (BldA) [Mass fraction] 97 % Tj Carville Other Phone: [facility] 08-22-2021 21:52-0400 Systolic blood pressure 123 mm[Hg] Tj Carville Other Phone: [facility] 08-22-2021 21:16-0400 Body height 144.7 cm Tj Carville Other Phone: [facility] 08-22-2021 21:16-0400 Body temperature 98.78 [degF] Tj Carville Other Phone: [facility] 08-22-2021 21:16-0400 Body weight 66 kg Tj Carville Other Phone: [facility] 07-02-2021 11:48-0500 Body height 146.05 cm Tj S Carville Work Phone: [facility] 3 DO Work Phone: 07-02-2021 11:48-0500 Body mass index (BMI) [Ratio] 31.09 kg/m2 Tj S Carville Work Phone: [facility] 3 DO Work Phone: 07-02-2021 11:48-0500 Body surface area Derived from formula 1.58 m2 Tj S Carville Work Phone: [facility] 3 DO Work Phone: 07-02-2021 11:48-0500 Body weight 66.32 kg Tj S Carville Work Phone: [facility] 3 DO Work Phone: 07-02-2021 11:48-0500 Diastolic blood pressure 60 mm[Hg] Tj S Carville Work Phone: [facility] 3 DO Work Phone: 07-02-2021 11:48-0500 Heart rate 84 /min Tj S Carville Work Phone: [facility] 3 DO Work Phone: 07-02-2021 11:48-0500 Systolic blood pressure 128 mm[Hg] Tj Tavares Carville Work Phone: [facility] 3 DO Work Phone: 06-29-2021 10:23-0500 Body height 144.78 cm Tj Tavares Carville Work Phone: [facility] Work Phone: 06-29-2021 10:23-0500 Body mass index (BMI) [Ratio] 31.49 kg/m2 Tj Tavares Carville Work Phone: [facility] Work Phone: 06-29-2021 10:23-0500 Body surface area Derived from formula 1.57 m2 Tj Tavares Carville Work Phone: [facility] Work Phone: 06-29-2021 10:23-0500 Body temperature 96.8 [degF] Tj Cortez Work Phone: [facility] Work Phone: 06-29-2021 10:23-0500 Body weight 66 kg Tj Cortez Work Phone: [facility] Work Phone: 06-29-2021 10:23-0500 Diastolic blood pressure 76 mm[Hg] Tj Tavares Carville Work Phone: [facility] Work Phone: 06-29-2021 10:23-0500 Heart rate 66 /min Tj Cortez Work Phone: [facility] Work Phone: 06-29-2021 10:23-0500 SaO2% (BldA) [Mass fraction] 99 % Tj Cortez Work Phone: [facility] Work Phone: 06-29-2021 10:23-0500 Systolic blood pressure 124 mm[Hg] Tj Cortez Work Phone: [facility] Work Phone: 06-18-2021 11:04-0500 Body height 144.78 cm Tj Cortez Work Phone: [facility] Work Phone: 06-18-2021 11:04-0500 Body mass index (BMI) [Ratio] 32.07 kg/m2 Tj Cortez Work Phone: [facility] Work Phone: 06-18-2021 11:04-0500 Body surface area Derived from formula 1.58 m2 Tj Cortez [employer] Phone: [facility] Work Phone: 06-18-2021 11:04-0500 Body weight 67.22 kg Tj Cortez [employer] Phone: [facility] Work Phone: 06-18-2021 11:04-0500 Diastolic blood pressure 68 mm[Hg] Tj Cortez Work Phone: [facility] Work Phone: 06-18-2021 11:04-0500 Heart rate 70 /min Tj Cortez [employer] Phone: [facility] Work Phone: 06-18-2021 11:04-0500 SaO2% (BldA) [Mass fraction] 100 % Tj Cortez [employer] Phone: [facility] Work Phone: 06-18-2021 11:04-0500 Systolic blood pressure 136 mm[Hg] Tj S Carville Work Phone: [facility] Work Phone: 05-21-2021 13:19-0500 Body height 144.78 cm Tj S Carville Work Phone: [facility] Work Phone: 05-21-2021 13:19-0500 Body mass index (BMI) [Ratio] 32.24 kg/m2 Tj S Carville Work Phone: [facility] Work Phone: 05-21-2021 13:19-0500 Body surface area Derived from formula 1.59 m2 Tj S Carville Work Phone: [facility] Work Phone: 05-21-2021 13:19-0500 Body weight 67.59 kg Tj S Carville Work Phone: [facility] Work Phone: 05-21-2021 13:19-0500 Diastolic blood pressure 64 mm[Hg] Tj S Carville Work Phone: [facility] Work Phone: 05-21-2021 13:19-0500 Heart rate 80 /min Tj S Carville Work Phone: [facility] Work Phone: 05-21-2021 13:19-0500 Systolic blood pressure 112 mm[Hg] Tj S Carville Work Phone: [facility] Work Phone: 04-14-2021 10:39-0500 Body height 144.78 cm Tj S Carville Work Phone: [facility] Work Phone: 04-14-2021 10:39-0500 Body mass index (BMI) [Ratio] 33.11 kg/m2 Tj Tavares Carville Work Phone: [facility] Work Phone: 04-14-2021 10:39-0500 Body surface area Derived from formula 1.6 m2 Tj Tavares Carville Work Phone: [facility] Work Phone: 04-14-2021 10:39-0500 Body temperature 97.1 [degF] Tj Tavares Carville Work Phone: [facility] Work Phone: 04-14-2021 10:39-0500 Body weight 69.4 kg Tj Tavares Carville Work Phone: [facility] Work Phone: 04-14-2021 10:39-0500 Diastolic blood pressure 72 mm[Hg] Tj Tavares Carville Work Phone: [facility] Work Phone: 04-14-2021 10:39-0500 Heart rate 69 /min Tj Tavares Carville Work Phone: [facility] Work Phone: 04-14-2021 10:39-0500 Systolic blood pressure 146 mm[Hg] Tj Tavares Carville Work Phone: [facility] Work Phone: 03-17-2021 10:09-0400 Body height 144.78 cm Tj Tavares Carville Work Phone: [facility] 3 DO Work Phone: 03-17-2021 10:09-0400 Body mass index (BMI) [Ratio] 33.97 kg/m2 Tj Tavares Carville Work Phone: [facility] 3 DO Work Phone: 03-17-2021 10:09-0400 Body surface area Derived from formula 1.62 m2 Tj Tavares Carville Work Phone: [facility] 3 DO Work Phone: 03-17-2021 10:09-0400 Body temperature 97.5 [degF] Tj Tavares Carville Work Phone: [facility] 3 DO Work Phone: 03-17-2021 10:09-0400 Body weight 71.22 kg Tj Tavares Carville Work Phone: [facility] 3 DO Work Phone: 03-17-2021 10:09-0400 Diastolic blood pressure 70 mm[Hg] Tj S Carville Work Phone: [facility] 3 DO Work Phone: 03-17-2021 10:09-0400 Heart rate 74 /min Tj Tavares Carville Work Phone: [facility] 3 DO Work Phone: 03-17-2021 10:09-0400 Systolic blood pressure 132 mm[Hg] Tj S Carville Work Phone: [facility] 3 DO Work Phone: 01-09-2021 10:36-0400 Body height 144.78 cm Tj S Carville Work Phone: [facility] Work Phone: 01-09-2021 10:36-0400 Body mass index (BMI) [Ratio] 35.11 kg/m2 Tj S Carville Work Phone: [facility] Work Phone: 01-09-2021 10:36-0400 Body surface area Derived from formula 1.65 m2 Tj Cortez [employer] Phone: [facility] Work Phone: 01-09-2021 10:36-0400 Body temperature 96.4 [degF] Tj Cortez Work Phone: [facility] Work Phone: 01-09-2021 10:36-0400 Body weight 73.6 kg Tj Cortez Work Phone: [facility] Work Phone: 01-09-2021 10:36-0400 Diastolic blood pressure 62 mm[Hg] Tj Cortez Work Phone: [facility] Work Phone: 01-09-2021 10:36-0400 Heart rate 78 /min Tj Cortez [employer] Phone: [facility] Work Phone: 01-09-2021 10:36-0400 SaO2% (BldA) [Mass fraction] 98 % Tj Cortez [employer] Phone: [facility] Work Phone: 01-09-2021 10:36-0400 Systolic blood pressure 130 mm[Hg] Tj Tavares Carville Work Phone: [facility] Work Phone: 06-18-2020 12:12-0500 BMI (Body Mass Index) 35.57 kg/m2 Maddi Maged [facility] Work Phone: 06-18-2020 12:12-0500 Body Temperature 96.8 [degF] Maddi Lynne [facility] Work Phone: 06-18-2020 12:12-0500 Body weight 74.56 kg Maddi Lynne [facility] Work Phone: 06-18-2020 12:12-0500 BP Diastolic 86 mm[Hg] Maddi Lynne [facility] Work Phone: 06-18-2020 12:12-0500 BP Systolic 138 mm[Hg] Maddi Lynne [facility] Work Phone: 06-18-2020 12:12-0500 BSA (Body Surface Area) 1.65 m2 Maddi [facility] Work Phone: 06-18-2020 12:12-0500 Height 144.78 cm Maddi [facility] Work Phone: 06-18-2020 12:12-0500 Pulse (Heart Rate) 71 /min Maddi Lynne [facility] Work Phone: 06-18-2020 12:12-0500 Pulse Oximetry 98 % Maddi Lynne [facility] Work Phone: 06-17-2020 12:04-0500 BMI (Body Mass Index) 35.79 kg/m2 Maddi Lynne [facility] Work Phone: 06-17-2020 12:04-0500 Body Temperature 97.1 [degF] Maddi Lynne [facility] Work Phone: 06-17-2020 12:04-0500 Body weight 75.01 kg Maddi Lynne [facility] Work Phone: 06-17-2020 12:04-0500 BSA (Body Surface Area) 1.66 m2 Maddi [facility] Work Phone: 06-17-2020 12:04-0500 Height 144.78 cm Maddi Lynne [facility] Work Phone: 06-17-2020 12:04-0500 Pulse (Heart Rate) 76 /min Maddi Lynne [facility] Work Phone: 06-17-2020 12:04-0500 Pulse Oximetry 97 % Maddi Lynne [facility] Work Phone: 11-09-2019 13:01-0400 BMI (Body Mass Index) 32.62 kg/m2 [facility] Work Phone: 11-09-2019 13:-040 Body Temperature 97.7 [degF] [facility] [employer] Work Phone: Encounters Encounter Date Encounter Type Care Provider Facility Start: 06-08-2023 End: 06-08-2023 ambulatory [facility] Ambulatory Start: 06-08-2023 End: 06-08-2023 Office outpatient visit 15 minutes Tjbautista Cortez DO Work Phone: [facility] Procedures Date Procedure Procedure Detail Performing Clinician Start: 03-24-2023 FOLLOW UP IN FAMILY MEDICINE [facility] Start: 03-21-2023 Hemoglobin A1c/Hemoglobin.total in Blood TJ ROYAL Start: 08-25-2022 Lipid 1996 panel - S oscar or Plasma Tj Carville DO Work Phone: Start: 06-08-2022 Mammography Tj R oyal DO Work Phone: Start: 05-27-2021 End: 05-27-2021 Colonoscopy Tj S Carville Work Phone: Start: 06-17-2020 Basic metabolic 1997 panel - Serum or Plasma Maddi Maged Start: 11-09-2019 Basic metabolic 1998 panel - Serum or Plasma Tj Carville Start: 11-09-2019 Lipid panel Tj R oyal Start: 09-03-2019 Assay of thyroid sti mulating hormone tsh Tj Carville Start: 09-03-2019 Pulse Oximetry, Nocturnal Tj Carville Biopsy of breast Tj Ro yal Cholecystectomy Tj Billy al Dilation and curettage Stephanie Tavares Carville Work Phone: Ligation of fallopian tube K insé Cortez Plan of Treatment Date Care Activity Detail Author Start: 05-27-2031 Screening for malign ant neoplasm of colon [facility] Start: 08-26-2027 Lipid panel Lipid Panel [facility] Start: 03-21-2024 Hemoglobin A1c measurement Diabetes: Hemoglobin A1C [facility] Start: 10-13-2023 End: 10-13-2023 Patient encounter procedure 10/13/2023 10:30 AM EDT Office Visit [facility] Building [address] [place] [address] Maddi Lynne, CONTRACT ASSOCIATE-HEAD OF STORE OPERATIONS, DNP [address] [place] [address] [facility] Start: 09-22-2023 End: 03-24-2024 Hemoglobin A1c/Hemoglobin.total in Blood Hemoglobin A1C Lab Routine Prediabetes Expected: 09/22/2023 (Approximate), Expires: 03/24/2024 [facility] Service Area Work Phone: Immunizations Immunization Date Immunization Notes Care Provider Fa cilijenn 07-24-2020 Moderna COVID-19 Vaccine 100 MCG/0.5ML Intramuscular Suspension Tj S Carville Work Phone: [facility] 06-27-2020 Moderna COVID-19 Vaccine 100 MCG/0.5ML Intramuscular Suspension Tj S Carville Work Phone: [facility] Payers Date Payer Category Payer Unknown [id number] 2018 Unknown [id number] 2015 Medicare [id number] 2015 Medicare [id number] 2015 Medicare [id number] 2015 Unknown 1950 Unknown [id number] 2.16. [id number] 1950 Unknown [id number] 2.16. [id number] 1950 Unknown [id number] 2.16. 840.1.043515.3.579.2.356 1950 Unknown [id number] 2.16. 840.1.709976.3.579.2.356 1950 Unknown [id number] 2.16. 840.1.511167.3.579.2.356 1950 Unknown [id number] 2.16.8 40.1.606203.3.579.2.1069 1950 Unknown [id number] 2.16.8 40.1.480603.3.579.2.1069 1950 Unknown [id number] 2.16.8 40.1.206646.3.579.2.1069 1950 Unknown [id number] 2.16.8 40.1.268164.3.579.2.1245 1950 Unknown [id number] 2.16. 840.1.548325.3.579.2.594 1950 Unknown [id number] 2.16. 840.1.646790.3.579.2.594 1950 Unknown [id number] 2.16. 840.1.982943.3.579.2.594 1950 Unknown [id number] 2.16. 840.1.051476.3.579.2.594 1950 Unknown [id number] 2.16. 840.1.484934.3.579.2.594 1950 Unknown [id number] 2.16. 840.1.487560.3.579.2.594 1950 Unknown [id number] 2.16.8 40.1.316100.3.579.2.1244 1950 Unknown [id number] 2.16.8 40.1.175193.3.579.2.1244 1950 Unknown [id number] 2.16.84 0.1.589742.3.579.2.1244 Private Health Insurance W21 Social History Date Type Detail Facility Start: 07-15-2021 End: 03-24-2023 No alcohol use No alcohol use [facility] Tobacco smoking consumption unknown [facility] Start: 04-08-2015 End: 08-26-2022 Tobacco smoking status NHIS Never smoked tobacco [facility] Start: 04-08-2015 End: 08-26-2022 Tobacco use and exposure Smokeless tobacco non-user [facility] Start: 07-15-2021 Alcohol intake 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) [facility] Start: 12-18-2019 History SDOH Financial 5 [facility] Start: 12-18-2019 History SDOH Food Worry 1 [facility] Start: 12-18-2019 History SDOH Transport Med 2 [facility] Start: 1950 Sex Assigned At Not on file [facility] Start: 08-26-2022 End: 06-08-2023 Alcohol intake Lifetime non-drinker (finding) [facility] Work Phone: Start: 08-26-2022 End: 03-24-2023 Tobacco use panel [facility] Start: 08-15-2022 End: 06-08-2023 Exposure to SARS-CoV-2 (event) Not sure [facility] NEGATED: Highlighted row - - [facility] Work Phone: Goals Date Patient Goal Desired Activity /State Functional Status Date Assessment Result Facility NEGATED: Highlighted row Functional performance Functional status health issues are not documented Disease [facility] Work Phone: Mental Status Date Assessment Result Facility NEGATED: Highlighted row Cognitive function [Interpretation] Cognitive status health issues are not documented Disease [facility] Work Phone: Clinical Notes 10-21-2020 to 06-08-2023 Assessment & Plan Note - Tj Cortez, DO - 06/08/2023 12:04 PM ESTAssessment & Plan Note - Tj Tavares DO Freddie - 06/08/2023 12:04 PM Alanrosalva Tavares Royal DO - 06/08/2023 11:40 AM EST Note Date & Type Note Facility 06-08-2023 Evaluation + Plan note Associated Problem(s): Spinal enthesopathy, lumbar region (CMS/HCC) -Stable [facility] Work Phone: 06-08-2023 Evaluation + Plan note Associated Problem(s): Multiple myeloma (CMS/HCC) -She will continue with her oncologist for now and she is on Revlimid -She had recent MRIs this month and we discussed the findings and the effects on her spine [facility] Work Phone: 06-08-2023 Evaluation + Plan note Associated Problem(s): HTN (hypertension), benign -We are increasing her amlodipine from 60 mg up to 90 mg daily -She will stop the new medicine and we will see her back in a couple of weeks She will check her blood pressure at home and bring her personal monitoring device with- [facility] Work Phone: 06-08-2023 Miscellaneous Notes Associated Problem(s): Spinal enthesopathy, lumbar region (CMS/HCC) -Stable Associated Problem(s): Multiple myeloma (CMS/HCC) -She will continue with her oncologist for now and she is on Revlimid -She had recent MRIs this month and we discussed the findings and the effects on her spine Associated Problem(s): HTN (hypertension), benign -We are increasing her amlodipine from 60 mg up to 90 mg daily -She will stop the new medicine and we will see her back in a couple of weeks She will check her blood pressure at home and bring her personal monitoring device with- documented in this encounter [facility] Work Phone: 06-08-2023 History of Present illness Narrative Subjective Patient ID: Chayito Read is a 73 y.o. female who presents for Follow-up. HPI She is here today for follow-up. Unfortunately her blood pressure has been running higher over the past month or so. She brought in a summary of her readings from home and they are consistent with what we got today. We are reminded that she has been on nifedipine 60 mg and we discussed going up to the 90 mg dose with careful follow-up. We also discussed her myeloma and she has had a change in her therapy. She is now taking Revlimid because her myeloma unfortunately does not appear to be under control at this time. She is very concerned about her spine. She had an MRI of the lumbar and thoracic region back on June 06 and we reviewed the results together. The radiologist points out that there is a compression deformity on the left side of L4 that looks consistent with a metastatic process or myeloma. She is very concerned about progression of this finding and her back. She states she discussed this with her oncologist and that his sentiment was that this is stemming from the myeloma and that is why they are changing therapy to get things under control. She wondered about seeing a specialist and I told her at this point I would not know who to refer her to. I told her that she could get a second opinion but a back specialist I do not feel would be helpful at this time and she would not be a candidate for surgery. She states she has been advised that she should go to the pain clinic for evaluation and treatment. I do agree that that would be beneficial. We also discussed getting her caught up with her mammogram as she is due this month and she does go to [place] for her exams. We will help get that ordered and I will see her back in a couple of weeks. Review of Systems Constitutional: Negative for fatigue. Respiratory: Negative for cough, shortness of breath and wheezing. Cardiovascular: Negative for chest pain and leg swelling. Occ palpitations Gastrointestinal: Negative for abdominal pain, blood in [...] place, and time. Psychiatric: Behavior: Behavior normal. Assessment/Plan Problem List Items Addressed This Visit ICD-10-CM HTN (hypertension), benign - Primary I10 -We are increasing her amlodipine from 60 mg up to 90 mg daily -She will stop the new medicine and we will see her back in a couple of weeks She will check her blood pressure at home and bring her personal monitoring device with- Relevant Medications NIFEdipine ER (Adalat CC) 90 mg 24 hr tablet Multiple myeloma (CMS/HCC) C90.00 -She will continue with her oncologist for now and she is on Revlimid -She had recent MRIs this month and we discussed the findings and the effects on her spine Spinal enthesopathy, lumbar region (CMS/HCC) M46.06 -Stable Obesity, morbid (CMS/HCC) E66.01 Other Visit Diagnoses Codes Encounter for screening mammogram for malignant neoplasm of breast Z12.31 Relevant Orders BI mammo bilateral screening tomosynthesis Tj Cortez DO documented in this encounter [facility] Work Phone: 06-08-2023 Instructions Tj Cortez DO - 06/08/2023 11:40 AM EST As we discussed we are changing the dose of your nifedipine from 60 mg up to 90 mg a day and to send a new prescription to your pharmacy. Please start the new dose right away and please keep checking your blood pressure at home. Please call me if you are having any problems with this medication and otherwise I want to see you back in approximately 2 weeks and please remember to bring your monitor with you The staff will be helping you to schedule your mammogram over in [place] documented in this encounter [facility] Work Phone: 03-24-2023 Evaluation + Plan note Associated Problem(s): Spinal enthesopathy, lumbar region (CMS/HCC) -Her condition has been stable [facility] Work Phone: 03-24-2023 Evaluation + Plan note Associated Problem(s): GERD (gastroesophageal reflux disease) -Currently stable -She will continue with famotidine 20 mg twice daily [facility] Work Phone: 03-24-2023 Miscellaneous Notes Associated Problem(s): [...] dose if necessary documented in this encounter [facility] Work Phone: 03-24-2023 Evaluation + Plan note Associated Problem(s): Impacted cerumen of right ear -We are going to flush her right ear of cerumen this morning [facility] Work Phone: 03-24-2023 Evaluation + Plan note [...] up on the nifedipine dose if necessary [facility] Work Phone: 03-24-2023 History of Present illness Narrative Subjective Patient ID: Chayito Read is a 73 y.o. female who [...] Tj Cortez DO documented in this encounter [facility] Work Phone: 03-24-2023 Instructions Tj Cortez DO [...] is also a way to message through [employer] We are going to flush your ear [...] your hemoglobin A1c documented in this encounter [facility] Work Phone: 08-26-2022 Evaluation + Plan note Associated Problem(s): Medicare annual wellness visit, initial -We discussed the importance of establishing advanced directives [facility] Work Phone: 08-26-2022 Miscellaneous Notes Associated Problem(s): [...] not improve soon -She does not use bxuk-mmw-apormtr NSAIDs Associated Problem(s): HTN (hypertension), benign -Her blood pressure is currently well controlled and she will continue taking nifedipine CC 30 mg once daily -Furosemide 40 mg 1 tablet daily documented in this encounter [facility] Work Phone: 08-26-2022 Evaluation + Plan note Associated Problem(s): Hypertriglyceridemia -Her cholesterol profile is excellent -She will continue with Lopid 600 mg daily -We will check her cholesterol once a year per Medicare guidelines [facility] Work Phone: 08-26-2022 Evaluation + Plan note Associated Problem(s): Prediabetes -We are ordering a hemoglobin A1c to be done just prior to her next visit -We encourage again routine exercise with healthy diet and weight loss [facility] Work Phone: 08-26-2022 Evaluation + Plan note Associated Problem(s): GERD (gastroesophageal reflux disease) -Her acid reflux symptoms have flared and she was only taking the Pepcid once daily. We will have her go to twice daily and I have sent a new prescription. She will call if her symptoms do not improve soon -She does not use uqfm-tpy-unjtxdu NSAIDs [facility] Work Phone: 08-26-2022 Evaluation + Plan note Associated Problem(s): HTN (hypertension), benign -Her blood pressure is currently well controlled and she will continue taking nifedipine CC 30 mg once daily -Furosemide 40 mg 1 tablet daily [facility] Work Phone: 08-26-2022 History of Present illness Narrative Pt is here today for a 6 month check up, she is also due for a [facility] wellness exam. Review labs. Subjective Reason for Visit: Chayito Read is an 72 y.o. female here [...] not improve soon -She does not use xzqi-fhf-ohbasqy NSAIDs Relevant Medications famotidine (Pepcid) 20 mg [...] Follow Up In Primary Care Multiple myeloma ([facility]) Medicare annual wellness visit, initial - Primary -We discussed the importance of establishing advanced directives documented in this encounter [facility] Work Phone: 08-26-2022 Instructions Tj Cortez DO - 08/26/2022 9:20 AM EDT -Please remember that I would like for you to take your Pepcid or famotidine twice daily and please call if your gastrointestinal symptoms do not improve or resolve Remember that we discussed the importance of establishing both a living will and power of state's attorney for healthcare. If you have these documents please provide a copy for your chart here and if you do not we encourage you to establish them -If everything goes according to plan I will see you back in 6 months and please remember to get fasting lab work prior to that visit documented in this encounter [facility] Work Phone: 02-16-2022 History of Present illness Narrative Care team: Jeet Lynne, Tj Cortez, Niels Santiago, Salvador Flores, Yusuf Leyva CC: Myeloma HPI Ms. Read is a very pleasant 71 y.o. woman diagnosed with myeloma. She has been under the excellent care of Dr Leyva in [place]. She is doing well. A complete response [...] no alcohol use, 1 son (works at [employer]), 1 daughter, 1 great grand child now in [place], , her used to work for the [employer] FH Father with lung cancer BP 154/75 [...] PRODUCT congaplex HERBAL PRODUCT emzymacore HERBAL PRODUCT Roundup 3 HERBAL PRODUCT [place] black radish HERBAL PRODUCT Kidney Well HERBAL [...] visit. documented in this encounter [facility] 02-16-2022 Instructions Paulo Cyr MD, PhD - 02/16/2022 3:20 PM EDT Patient education Your treatment Velcade/Dex/Revlimid From today's visit - recommend finishing Revlimid and then stopping this medication - would recommend doing a cycle of Velcade and dexamethasone then stop dexamethasone and proceed with every other week Velcade as a maintenance strategy documented in this encounter [facility] 11-03-2021 Chief complaint Narrative - Reported An interactive audio and video telecommunication system which permits real time communications between the patient (at the originating site) and provider (at the distant site) was utilized to provide this telehealth service.Tested positive for COVID this morning. Body aches. This note was generated by using [employer] software. It may contain errors in wording, [...] couple of weeks to evaluate her symptoms. [facility] Work Phone: 10-13-2021 Instructions Paulo Cyr MD, [...] and recommendations documented in this encounter [facility] 10-13-2021 History of Present illness Narrative Care team: Jeet Lynne, Tj Cortez, Niels Santiago, Salvador Flores, Yusuf Leyva CC: Myeloma HPI Ms. Read is a very pleasant 71 y.o. woman diagnosed with myeloma. Since our first visit, she has begun therapy with Dr Leyva in [place]. She is doing well. We conducted a [...] no alcohol use, 1 son (works at [employer]), 1 daughter, 1 great grand child now in [place], , her used to work for the [employer] [facility] [employer] [facility] FH Father with lung cancer BP 153/68 [...] PRODUCT congaplex HERBAL PRODUCT emzymacore HERBAL PRODUCT Roundup 3 HERBAL PRODUCT [place] black radish losartan-hydrochlorothiazide 100-25 MG Tab tablet [...] any additional questions. documented in this encounter [facility] 09-22-2021 History of Present illness Narrative She is here for follow-up secondary to resistant hypertension. She is on allopurinol, Lasix, nifedipine, she also does use NSAIDs on a daily basisHer blood pressure today is 130/78. At home if she is taking her blood pressures and she is averaging in the 130 over 70s.She had blood work drawn on September blood work shows a hemoglobin of 12.0 her BUN is 15 with a creatinine of 0.64 her albumin is a little on the low side at 2.9 her electrolytes look pretty normal her bicarb is 30She is feeling well.No complaints.She has some swelling.She is trying to lease picker her activity. [facility] DO Work Phone: 07-31-2021 Note Therapy [...] important to know Initial Fall Risk Screening: CHAYITO has not fallen in the last 6 months. CHAYITO does not have a fear of falling. [...] number: 8 supervising PT MY Medicare, [place] Supplement Onset Date: 2020 Medicare Certification Period: [...] code time is 25 minutes. Therapeutic exercise (27517): timed minutes 34, units 2 . pulleys [...] R 3 x 10 . Manual Therapy (65810):. supine PROM R GH flexion, scaption, ER at 45* abd X STW; to R UT and upper arm X. Provided today: a personalized home program (Scanned) and education . pulleys and scaption HEP 07/28/11 [id number], provided and reviewed with patient. 'Scores and Scales' Signatures Electronically signed by : Jeanne Mason PT; Jul 31 2021 1:07PM EST (Author) Reviewed by : Tj Cortez DO; Aug 02 2021 7:10PM EST [facility] 04-21-2021 Chief complaint Narrative - Reported An interactive audio and video telecommunication system which permits real time communications between the patient (at the originating site) and provider (at the distant site) was utilized to provide this telehealth service.Tested positive for COVID 04/21/21, Has had symptoms since 04/19/21. C/O Sore throat, Fever, Congestion, sinus pressure and cough. This note was generated by using Knewton software. It may contain errors in wording, [...] a review of systems. BP was high. [facility] Work Phone: 10-21-2020 History of Present illness [...] coffee.Sh eonly drinks when she is thirsty. [facility] 3 DO Work Phone: 10-21-2020 History [...] coffee.Sh eonly drinks when she is thirsty. XT[facility]otnpu-[facility] DO Work Phone: [facility] Diagnosis Multiple myeloma, remission status unspecified [facility] Diagnosis Medicare annual wellness visit, initial- Primary HTN (hypertension), benign Essential hypertension, benign Multiple myeloma not having achieved remission (CMS/HCC) Gastroesophageal reflux disease without esophagitis Esophageal reflux Hypertriglyceridemia Pure hyperglyceridemia Prediabetes Other abnormal glucose Obesity (BMI 30.0-34.9) documented in this encounter [facility] Work Phone: Evaluation note* Diagnosis Spinal enthesopathy, lumbar region (CMS/HCC)- Primary HTN (hypertension), benign Essential hypertension, benign Gastroesophageal reflux disease without esophagitis Esophageal reflux Hypertriglyceridemia Pure hyperglyceridemia Obesity, morbid (CMS/HCC) Morbid obesity Prediabetes Other abnormal glucose Impacted cerumen of right ear Impacted cerumen documented in this encounter [facility] Work Phone: Evaluation note* Diagnosis HTN (hypertension), benign- Primary Essential hypertension, benign Multiple myeloma not having achieved remission (CMS/HCC) Spinal enthesopathy, lumbar region (CMS/HCC) Obesity, morbid (CMS/HCC) Morbid obesity Encounter for screening mammogram for malignant neoplasm of breast documented in this encounter [facility] Work Phone: History of Present illness [...] Meals: performs independently. * Falls Risk Screening:. CHAYITO has not fallen in the last 6 months. Her fall did not result in injury. * Home safety risk factors: no grab bars in the bathroom. * Advance directives:. Advanced Care Planning discussed and documented advance care plan or surrogatedecision maker documented in the medical record. Patient has no living will. Patient has no healthcare POA. -[facility] Work Phone: History of Present illness [...] been dealing with this for some time. CB-Iqlntrqpnr-JGHAd[facility] 3 DO Work Phone: History of Present [...] range of motion/joint mobility and strength. [facility] Work Phone: History of Present illness NarrativePatient identified by name and date of . Patient was able to tolerate progression of ROM and strengthening w/o increased Sx. She required cues with form and motion with AAROM. She presented withpalpable tension in R UT and limited ROM with PROM. [facility] Work Phone: History of Present illness NarrativeC/o increased R UT pain after GH rows, decreased with STM. Added pulleys to clinic program and HEP,replaced isometric IR with TB IR. Cont progressing ROM/strengthening as lorena for increased ease raising arm overhead. [facility] Work Phone: History of Present illness NarrativePatient had many questions regarding her current HEP, plus updated HEP and added resistance ex's. Provided handout, door anchor, and bands (orange, green, blue). Deferred manual treatment secondary to time constraints as more time spent with ther-ex and patient education. Good tolerance to session with patient denying increase in symptoms, only mild fatigue, post-treatment. [facility] Work Phone: History of Present illness Narrative* Added tricep ext to increase upper arm strength as pt reports difficulty pushing to get out of bed.Pt reports stretch sensation at end range R GH PROM scaption/flexion, denies pain. Cont progressingROM/strengthening as lorena for increased ease lifting casserole dishes out of oven. * Response to treatment: no change in pain. [facility] Work Phone: History of Present illness NarrativePatient identified by name and date of . Patient required cues to slow down with exercises throughout treatment She demonstrated fair tolerance to progression of strengthening. She reported increased Sx with bwd UBE. She presented with palpable tension in R UT that responded well to STW and addition of UT stretch. [facility] Work Phone: History of Present illness Narrative* Pt has attended 8 visits for shoulder pain consisting of evaluation, ther ex, manual, and HEP. Has benefited from PT as evidenced by decreased pain, increased ROM since eval. At this time, pt has knowledge/skills to progress independently at home via HEP. Therefore, PT will be discharged. * Response to treatment: no change in pain. [facility] Work Phone: Reason for referral (narrative)* Consultation (Routine) - Authorized Specialty Diagnoses / Procedures Referred By Tobin suero Referred To Contact Primary Care Diagnoses HTN (hypertension), benign Gastroesophageal reflux disease without esophagitis Hypertriglyceridemia Procedures Follow Up In Primary Care Tj Cortez DO [address] [facility] [place] [address] Referral ID Status Reason Start Date Expiration Date V isits Requested Visits Authorized [id number] Authorized 08/26/2022 02/22/2023 1 1 [facility] Work Phone: Reason for visit Narrative* Initial Evaluation . right shoulder pain. * Referred by: Dr. Cortez [facility] Work Phone: Summary Purpose Family History No [...] her. This note was generated by using Knew[employer] software. It may contain errors in wording, punctuate, orspelling. * She is here today for her 6-month checkup. She noticed a spot underneath her right breast on her anterior chest wall which seems to be getting larger. It does appear rather atypical and measures 2-1/2 cm in its widest dimension. I will obviously have her see a property damage claims adjustor for an inspection. She is agreeable. Her [...] andcreatinine. She states she has been taking gylc-fge-[id number] ibuprofen and we discussed the extreme importance [...] up, She is also due for her [facility] wellness exam. This note was ge nerated by using Knewton software. It may contain errors in wording, punctuate, or spelling. * She is here today for her 6-month checkup and we also completed her annual Medicare wellness visit.Since her last visit she has been very busy with specialists and unfortunately they discovered thatobdulia had multiple myeloma. She states that overall she is doing okay and undergoing treatment. We did conduct a full review of systems and we also screen for depression. She is coping well during thistime. We also reviewed recent laboratory test results and she brought a copy of lab work that was performed through [facility]. Her potassium level was good recently and her sodium level remains borderline low at 133. She has been seen by the machinery erector, Dr. Lynne and he has been working [...] establishing a living will and power of state's attorney for healthcare. We also talked about [...] with postnasal drip and has been trying ifpt-uml-tommubc medications without much success. I have recommended that we try Flonase nasal spray and I sent a pre scription to her pharmacy. She will let me know if this is ineffective. 2 WEEK FUV- HTN* Pt is here today with the C/O gout in right ankle, right knee pain. This note was generated by using Knewton software. It may contain errors in wording, punctuate, or spelling. * She is here today for evaluation of an acute onset of pain and swelling involving her right ankle and knee. She states she was worried about some Swelling so she appropriately went to the emergency department on Tuesday night. Because it was late Tuesday Anjali did not have a Doppler to do a test so they redirected her to an emergency room in [place]. She went there and they do the Doppler and thankfully she did not have any evidence of a DVT. We are reminded that she has been diagnosed with myeloma. She also has a history of gout and is on allopurinol. 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 I [...] facial pain. This note was generated byusing Knewton software. It may contain errors in wording, [...] labs. This note was generated by using Knewton software. It may contain errors in wording, [...] is doing well everything is going on. Reason for Referral Specialty Diagnoses / Procedures Referred By Tobin suero Referred To Contact Radiology Diagnoses Encounter for screening mammogram for malignant neoplasm of breast Procedures BI mammo bilateral screening tomosynthesis Tj Cortez DO [address] [facility] [place] [address] Referral ID Status Reason Start Date Expiration Date Visits Requested Visits Authorized [id number] Authorized Perform Procedure 06/08/2023 06/07/2024 1 1 Specialty Diagnoses / Procedures Referred By Tobin suero Referred To Contact Primary Care Procedures Follow Up In Primary Care Tj Cortez DO [address] [place] [address] Referral ID Status Reason Start Date Expiration Date V isits Requested Visits Authorized [id number] Authorized 06/08/2023 06/07/2024 1 1 Additional Source Comments INFORMATION SOURCE (unrecogn ized section and content) DATE CREATED AUTHOR AUTHOR'S ORGANIZ ATION 12/05/2018 [facility] DATE CREATED AUTHOR AUTHOR'S ORGANIZ ATION 11/01/2019 [facility] DATE CREATED AUTHOR AUTHOR'S ORGANIZ ATION 06/16/2021 [facility] DATE CREATED AUTHOR AUTHOR'S ORGANIZ ATION 08/28/2021 [facility] DATE CREATED AUTHOR AUTHOR'S ORGANIZ ATION 07/10/2022 [facility] DATE CREATED AUTHOR AUTHOR'S ORGANIZ ATION 08/27/2022 [facility] DATE CREATED AUTHOR AUTHOR'S ORGANIZ ATION 08/27/2022 [facility] DATE CREATED AUTHOR AUTHOR'S ORGANIZ ATION 03/26/2023 [facility] DATE CREATED AUTHOR AUTHOR'S ORGANIZ ATION 04/06/2023 [facility] DATE CREATED AUTHOR AUTHOR'S ORGANIZ ATION 06/10/2023 [facility] <item> Privacy Markings (unrecogniz ed section and [...] In Primary Care Tj Cortez DO [address] [facility] [place] [address] Referral ID Status Reason Start Date Expiration Date Visits Re quested Visits Authorized [id number] Closed 08/26/2022 02/22/2023 1 1 Reason Comments Follow-up Care Teams (unrecognized sec tion and content) Intermediate Card Tender Relationship Specialty Start Date End Date Tj Cortez DO PCP - General Internal Medicine 12/27/14 Niels Santiago MD [address] [place] [address] [place] [address] Oncologist Hematology and Oncology 05/27/21 Paulo Cyr MD, PhD [address] [place] [id number] Switchboard Wire Worker Helper Hematology 05/27/21 Intermediate Card Tender Relationship Specialty Start Date End Date Tj Cortez DO [address] [facility] [place] [id number] PCP - General 01/23/19 Jeet Lynne, DO [address] [place] [id number] Nephrology 08/26/22 Intermediate Card Tender Relationship Specialty Start Date End Date Tj Cortez DO [address] [place] [address] PCP - General 01/23/19 Jeet Lynne, DO [address] [place] [id number] Nephrology 08/26/22 Intermediate Card Tender Relationship Specialty Start Date End Date Tj Cortez, DO [address] [place] [id number] PCP - General 01/23/19 Jeet Lynne, DO [address] [place] [id number] Nephrology 08/26/22 FOR RECORDS PERTAINING TO PATIENTS [...] BE BASED ON THE PRIMARY CLINICAL RECORDS. [facility] provides no warranty or guarantee of the accuracy or completeness of information in this document.
== END | disposition home or self-care (01) ==
LOC: OPBI 10:35
PROVIDERS: PCP Internal Medicine; Referring Provider Internal Medicine; Visit Provider Internal Medicine
DX: Z12.31 Encounter for screening mammogram for malignant neoplasm of breast (principal)
CPT/HCPCS: 77063; 77067

== ENCOUNTER → 2023-11-03 | Outpatient (CLI) | payer MEDICARE, OTHER, SELFPAY ==
--- NOTE | 2023-11-03 11:25 | RAD_ITS ---
STUDY: X-RAY - CERVICAL SPINE REASON FOR EXAM: Female, 73 years old. DDD TECHNIQUE: XR Spine Cervical 3 Views COMPARISON: None FINDINGS: Normal anterior atlantoaxial articulation. The odontoid process is obscured by the overlying hard palate on the open mouth view. Therefore, it is not fully evaluated by plain film. Large anterior osteophytes. Carotid artery calcifications. There is straightening of the normal cervical lordosis. There is multi-level endplate spondylosis. There is multi-level degenerative disc disease with multilevel disc space narrowing. There is multi-level osseous foraminal stenosis. The soft tissue structures are unremarkable. RAD/Cerv Spine 2 or 3 Views IMPRESSION: There are degenerative changes as noted above. The odontoid process is obscured by the overlying hard palate on the open mouth view. Therefore, it is not fully evaluated by plain film. Electronically Signed: Pawan Veliz MD at 20:40 EDT ,
== END | disposition home or self-care (01) ==
LOC: RAD 11:16
PROVIDERS: PCP Internal Medicine; Referring Provider Anesthesiology Pain Medicine; Visit Provider Anesthesiology Pain Medicine
DX: M50.30 Other cervical disc degeneration, unspecified cervical region (principal)
CPT/HCPCS: 72040

== ENCOUNTER → 2024-07-17 | Outpatient (CLI) | payer MEDICARE, OTHER, SELFPAY ==
--- NOTE | 2024-07-17 08:54 | BI_ITS ---
PROCEDURE: SCRN MAMM (CAD)W/SHARMILA BILAT REASON FOR EXAM: F, Age 74 y/o , presents for annual screening mammogram. Personal history of breast cancer with bilateral lumpectomies and radiation. TECHNIQUE: Bilateral screening digital breast tomosynthesis with 2D and 3D images. Computer aided detection. COMPARISON: 06/21/2023, 06/08/2022 FINDINGS: The breasts are heterogeneously dense which may obscure small masses. There are postsurgical changes in both breast. The mammogram demonstrates that the patient has dense breasts. Supplemental screening with whole breast ultrasound or MRI may be considered for further evaluation. No suspicious masses, areas of developing architectural distortion, or suspicious calcifications. BI/SCRN MAMM (CAD)W/SHARMILA BILAT IMPRESSION: There is no mammographic evidence of malignancy in either breast. BI-RADS 2: BENIGN. RECOMMEND ANNUAL MAMMOGRAPHIC SCREENING. Follow-up code: Routine Follow-up The patient will be notified of the results by letter. Reading Location: [id number]
== END | disposition home or self-care (01) ==
LOC: OPBI 08:53
PROVIDERS: PCP Internal Medicine; Referring Provider Internal Medicine; Visit Provider Internal Medicine
DX: Z12.31 Encounter for screening mammogram for malignant neoplasm of breast (principal)
CPT/HCPCS: 77063; 77067

== ENCOUNTER 2025-03-16 15:53 | Emergency (ER) | payer MEDICARE, OTHER, SELFPAY ==
[2025-03-16 15:54] VITALS: BP 176/63; PULSE 74; RESP 16; TEMP 36.5; O2SAT 99; BMI 32.2
--- NOTE | 2025-03-16 16:23 | CT_ITS ---
PROCEDURE: CTA HEAD AND NECK W/ CONTRAST 03/16/2025 REASON FOR EXAM: SEVERE POST NECK PAIN, SUDDEN ONSET ALVAREZ TECHNIQUE: Procedure Code: [id number].HDNCK Modality: CT Procedure: CTA HEAD AND NECK W/ CONTRAST Multiplanar Sagittal and Coronal images were obtained. CONTRAST: VOLUME: mL One or more dose reduction techniques were used (e.g., Automated exposure control, adjustment of the mA and/or kV according to patient size, use of iterative reconstruction technique). FINDINGS: HEAD: Atherosclerotic calcifications within the cavernous and supraclinoid segments of the bilateral ICAs result in less than 50% luminal narrowing. Otherwise the intracranial segments of the bilateral ICAs appear unremarkable. The bilateral ACAs appear unremarkable. The anterior communicating artery is poorly visualized but may be patent (series 4, image 365). The bilateral MCAs appear unremarkable. The intracranial segments of the bilateral vertebral arteries (V4) appear unremarkable. The basilar artery is unremarkable. The bilateral coach wirer are unremarkable. NECK: Atherosclerotic calcifications are noted within the bilateral carotid bulbs resulting in less than 50% luminal narrowing. Otherwise the bilateral common carotid arteries, carotid bulbs, and cervical ICAs appear unremarkable. The cervical segments of the bilateral vertebral arteries appear unremarkable. No hemodynamically significant stenosis, major vessel occlusion/dissection, or aneurysm greater than [address]/CTA Head AND Neck W/ Contrast IMPRESSION: No hemodynamically significant stenosis, major vessel occlusion or dissection, or aneurysm greater than 3 mm. Reading Location: [id number]
--- NOTE | 2025-03-16 16:26 | EX.ED.DYSGE1 ---
HPI History of Present Illness Chief Complaint: Other, Pain/Inj Informant: patient and spouse/S.O. Narrative Narrative: Patient is a 75-year-old female with a history of multiple myeloma presenting with acute onset neck pain and headache. Patient is accompanied by her who is supplementing history. - Reports neck pain began 2 days ago, initially presenting as difficulty turning her neck, gradually worsening and now severe. - Has a history of chronic left-sided neck pain associated with occipital neuralgia, usually managed with topical patches. - Current pain is bilateral and differs from her usual occipital neuralgia but is posterior. - Denies recent trauma or injury but cleaned under bathroom cabinets the day before symptom onset. - Experiencing increased pain and difficulty chewing due to posterior neck pain but no odynophagia or sore/swollen throat. - Sudden onset headache began last night, localized to the posterior head and neck. - Denies fever, numbness, weakness, balance issues, or changes in vision. - Pain exacerbated by any neck movement; unable to turn head in any direction. - Applied muscle rub and visited a chiropractor for ultrasound treatment today, both without relief. - Undergoing treatment for multiple myeloma with lenalidomide and daratumumab; reports stable condition with low WBC and neutrophil counts. - Denies use of anticoagulants. [facility] Medical History Left facial numbness Encounter for monoclonal antibody treatment for malignancy Hypokalemia Low back pain Impacted cerumen of right ear Dehydration Tenderness of back Neuropathy Dermatitis Tooth pain Encounter for chemotherapy management Iron deficiency Anemia in chronic illness Left hip pain Encounter for education Degenerative joint disease Breast cancer Multiple myeloma Hyperuricemia Carotid stenosis Hyperglycemia Carpal tunnel syndrome GERD (gastroesophageal reflux disease) Granuloma annulare COVID-19 Benign hypertension Home Medications ?Medication ?Instructions ?Recorded ?Last Taken ?Type allopurinol 100 mg tablet 100 mg PO DAILY 06/02/21 Unknown History furosemide 40 mg tablet 40 mg PO DAILY 06/02/21 Unknown History [employer] Pro DHA Kellogg-3 1 cap PO DAILY 06/30/21 Unknown History Osteoprime Ultra 2 tab PO BID 07/14/21 Unknown History Ten Mushroom 2 cap PO BID 07/14/21 Unknown History aspirin 81 mg tablet,delayed 81 mg PO DAILY 08/04/21 Unknown History release (Adult Low Dose Aspirin) Disability Placard #1 ea 12/15/21 Unknown Rx Euromedica Nerve Complex 1 cap PO BID 06/22/22 Unknown History valsartan 40 mg tablet 40 mg PO DAILY 07/19/23 Unknown History dexamethasone 4 mg tablet 20 mg (5 x 4 mg) PO QDAY #100 tabs 01/26/24 Unknown Rx famotidine 20 mg tablet (Pepcid) 20 mg PO DAILY #30 tabs 02/02/24 Unknown Rx Kidney Aid PO 02/21/24 Unknown History NAC PO 02/21/24 Unknown History alpha lipoic acid 125 mg-biotin 95 cap PO 02/21/24 Unknown History mcg-berberine 250 mg capsule cholecalciferol (vitamin D3) 125 125 mcg PO QDAY 02/21/24 Unknown History mcg (5,000 unit) capsule Paur'de'arc PO 03/20/24 Unknown History naproxen 500 mg tablet 500 mg PO BID 03/27/24 Unknown History potassium chloride 20 mEq 40 meq (2 x 20 mEq) PO DAILY #6 06/05/24 Unknown Rx tablet,extended release(part/cryst) tabs spirolena PO 08/28/24 Unknown History nifedipine 60 mg tablet,extended 30 mg PO DAILY 10/23/24 Unknown History release lenalidomide 25 mg capsule 25 mg PO QDAY 11/16/24 Unknown History (Revlimid) acyclovir 400 mg tablet 400 mg PO BID 30 days #60 tabs 12/25/24 Unknown Rx escitalopram oxalate 10 mg tablet 5 mg PO QDAY 02/19/25 Unknown History hydrocodone-acetaminophen 5-325mg 1 tab PO Q6H PRN PRN Pain 3 days 03/16/25 Unknown Rx 5mg-325mg #10 TABLETS orphenadrine citrate 100 mg 100 mg PO Q12H PRN muscle spasm 03/16/25 Unknown Rx tablet,extended release #10 tabs Allergy/AdvReac Type Severity Reaction Status Date / Time No Known Allergies Allergy Verified 03/16/25 15:54 Family History Father Lung cancer Smoker Brother , passed at 6 months of age Aplastic anemia Surgical History History of cataract extraction History of lumpectomy of both breasts History of left breast biopsy History of lymph node biopsy History of cervical polypectomy History of tubal ligation History of right breast biopsy History of cholecystectomy Hx of tonsillectomy Social History household members: spouse Smoking Status: Never smoker alcohol intake: never substance use type: does not use caffeine: Yes Type: coffee Number of servings: 1 ROS ROS ED Constitutional Constitutional ED: Denies chills or fever(s) Eyes Eyes: Denies blurry vision, change in vision, diplopia or photophobia ENT ENT ED: Denies ear pain, rhinorrhea or sore throat Cardiovascular Cardiovascular: Denies chest pain or palpitations Respiratory/Chest Respiratory/Chest: Denies cough or dyspnea Gastrointestinal Gastrointestinal: Denies abdominal pain, diarrhea, nausea or vomiting Genitourinary Genitourinary ED: Denies dysuria or hematuria Musculoskeletal Musculoskeletal: Reports neck pain; Denies arthralgias, back pain or myalgias Integumentary Denies abscess or rash Neurologic Neurologic: Reports headache(s); Denies paresthesias or weakness Psychiatric Psychiatric: Denies anxiety or suicidal thoughts EXAM Physical Exam Const Vital Signs: 03/16/25 15:54 03/16/25 16:09 03/16/25 18:00 Temperature 97.7 F L Temperature Source Oral Pulse Rate 74 Respiratory Rate 16 Respiratory Effort Normal Non-Labored Respiratory Pattern Normal Blood Pressure 176/63 H 123/75 H Blood Pressure Mean 100 91 Pulse Ox 99 Oxygen Delivery Method Room Air 03/16/25 20:00 03/16/25 20:37 Temperature 98 F Temperature Source Pulse Rate 68 68 Respiratory Rate 14 14 Respiratory Effort Respiratory Pattern Blood Pressure 138/64 H 127/56 H Blood Pressure Mean 88 79 Pulse Ox 98 99 Oxygen Delivery Method Room Air Positive well nourished and well developed General Appearance ED: well developed and NAD HEENT Reports moist mucous membranes normocephalic and atraumatic Eyes PERRL and EOMs intact bilaterally Neck Neck Narrative: Severely tender throughout bilateral posterior cervical paraspinal musculature. Normal-appearing although there is some gel on the skin. No rashes. No nidus for infection or fluctuance/mass. She is holding her head very still a little right of midline resistant to moving at all due to pain. At times she moves a little and then yelps in pain. She can take her chin down to her chest very slowly but has significant discomfort and trying to get her head back up to neutral. There are some mild midline tenderness but not as bad as a paraspinal musculature. The lateral aspect of the trapezius are less tender. Rhomboids are nontender. No thoracic or lumbar tenderness. No cervical lymphadenopathy or anterior or lateral tenderness including the distribution of the sternocleidomastoid and the mastoid processes which are normal-appearing. No carotid bruits. Resp normal respiratory effort and clear to auscultation bilaterally Cardio regular rate, regular rhythm and no murmurs GI non-tender and non-distended Auscultation: normoactive bowel sounds Palpation: soft Back/Spine no CVA tenderness General Back: other FROM Extremity normal to inspection Extremity Narrative: Negative Kernig sign. General Extremety ED: Negative for edema, pulses abnormal or tenderness General Extremity: Negative for edema or pulses abnormal Neuro oriented x3, CN's II-XII intact bilaterally and no sensory deficits noted Neuro Narrative: GCS 15 normal neurologic exam normal speech no aphasia or dysarthria. Sensorium / Orientation: awake and alert Motor Exam: strength 5/5 throughout Psych Psych Narrative: Frustrated but otherwise mental status is normal. Skin no rashes or lesions noted and no wounds MDM MDM MDM Narrative Medical decision making narrative: Assessment: The patient is a 75-year-old female with PMH of multiple myeloma on lenalidomide and dorzolamide, and chronic leukopenia, presenting for acute bilateral posterior neck pain with sudden-onset occipital headache and painful neck motion following cabinet cleaning the prior day. Exam shows marked tenderness and limited active rotation and extension of the cervical spine; no focal neurologic deficits, meningismus, fever, or infectious symptoms. Differential included torticollis/neck muscle strain versus meningitis or aneurysmal subarachnoid hemorrhage. Normal vital signs after analgesia (BP 138/64) and ability to move neck partially without systemic signs make meningitis or aneurysm rupture very unlikely. CTA head/neck ordered to exclude vascular catastrophe; LP offered but patient declined. Overall presentation and response to morphine, Zofran, and Norflex favor acute muscular torticollis/neck strain as the most likely etiology; leukopenia attributed to known chemotherapy. Plan: - Treated in ED with IV morphine, IV Zofran, and IM/IV Norflex for analgesia and muscle spasm - Declined lumbar puncture after risks/benefits discussion - Prescriptions provided for hydrocodone and a muscle relaxer on discharge - Discussed expectations: symptomatic improvement may take 1?2 weeks; advised close outpatient follow-up and return for worsening pain, fever, neurologic deficit, or new symptoms - Patient requested discharge; risks of leaving prior to finalized imaging results reviewed and accepted; plan to call patient if CTA reveals abnormalities Diagnostics: - CTA head and neck obtained to evaluate for subarachnoid hemorrhage or aneurysm; radiology interpretation pending - Labs: complete blood count notable for leukopenia; remaining studies within normal limits per preliminary review Reevaluations: - After analgesia and muscle relaxant, patient reports partial pain relief and improved neck mobility; remains symptomatic but stable - Noted delay in radiology final read; discussed situation and disposition options with patient and , who prefer discharge Indeed later, I reviewed the results of the CTA of the head and neck and I agree with them, negative for any acute. Lab Data Attestation: I reviewed the patient's lab results. Labs: Laboratory Results - last 24 hr 03/16/25 16:30 WBC 4.0 L RBC 3.62 L Hgb 10.8 L Hct 32.8 L MCV 90.6 MCH 29.8 MCHC 32.9 RDW Std Deviation 52.4 H RDW Coeff of Evan 15.8 H Plt Count 116 L MPV 10.9 Immature Gran % (Auto) 0.000 Neut % (Auto) 45.6 L Lymph % (Auto) 35.8 [place] % (Auto) 12.9 H Eos % (Auto) 5.2 H Baso % (Auto) 0.5 Absolute Neuts (auto) 1.8 L Absolute Lymphs (auto) 1.44 Nucleated RBC % 0 Sodium 138 Potassium 5.7 H Chloride 103 Carbon Dioxide 22.2 Anion Gap 12 BUN 15 Creatinine 0.80 Estim Creat Clear Calc 52.12 Est GFR (MDRD) Non-Af 77 BUN/Creatinine Ratio 18.8 Glucose 94 Calcium 9.4 Radiography Diagnostic Testing: Clinical Impression(s) from Imaging Studies Head/Neck CTA 03/16/25 16:23 IMPRESSION: No hemodynamically significant stenosis, major vessel occlusion or dissection, or aneurysm greater than 3 mm. Reading Location: [id number] Rhythm Strip Rhythm Strip: Sinus Rhythm Rate: 73 Ectopy: None EKG Initial EKG: Attestation: I personally reviewed and interpreted this EKG as follows: Interpretation: Sinus Rhythm and No Acute Injury Pattern Comments: Nml axis & intervals; nml EKG; no changes of hyperkalemia. Discharge Plan Triage Chief Complaint: Other, Pain/Inj ED Provider: Montana Martinez Dx/Rx/DC Orders Clinical Impression: Acute torticollis, Acute cervical myofascial strain, Cephalgia, Leukopenia, Multiple myeloma Instructions: Torticollis (Wry Neck) Prescriptions: New hydrocodone-acetaminophen 5-325 mg tablet 1 tab PO Q6H PRN PRN (Reason: Pain) 3 Days Qty: 10 0RF orphenadrine citrate 100 mg tablet extended release 100 mg PO Q12H PRN (Reason: muscle spasm) Qty: 10 0RF No Action allopurinol 100 mg tablet 100 mg PO DAILY furosemide 40 mg tablet 40 mg PO DAILY [employer] Pro DHA Kellogg-3 capsule 1 cap PO DAILY Osteoprime Ultra tablet 2 tab PO BID Ten Mushroom capsule 2 cap PO BID aspirin [Adult Low Dose Aspirin] 81 mg tablet,delayed release (DR/EC) 81 mg PO DAILY (DME) Disability Placard See Rx Instructions .Route .MEDSUPPLY Qty: 1 0RF Rx Instructions: Lifetime Eurom[employer] Nerve Complex 1 cap PO BID nifedipine 60 mg tablet extended release 30 mg PO DAILY valsartan 40 mg tablet 40 mg PO DAILY dexamethasone 4 mg tablet 20 mg PO QDAY Qty: 100 4RF Rx Instructions: Take 20 mg After breakfast for 2 days starting day scheduled for injectable immune chemotherapy famotidine [Pepcid] 20 mg tablet 20 mg PO DAILY Qty: 30 2RF cholecalciferol (vitamin D3) 125 mcg (5,000 unit) capsule 125 mcg PO QDAY NAC PO a lipoic [id number]-[id number]-htsyouwac 125 mg-95 mcg- 250 mg capsule PO Kidney Aid PO Paur'de'arc PO Rx Instructions: 3 pills twice a day naproxen 500 mg tablet 500 mg PO BID potassium chloride 20 mEq tablet,ER particles/crystals 40 meq PO DAILY Qty: 6 0RF spirolena PO acyclovir 400 mg tablet 400 mg PO BID 30 Days Qty: 60 12RF Rx Instructions: Start with start of chemotherapy escitalopram oxalate 10 mg tablet 5 mg PO QDAY lenalidomide [Revlimid] 25 mg capsule 25 mg PO QDAY Rx Instructions: days 1-21 and then off for 7 days. Primary Care Provider: Thelma Frazier Referrals: Thelma Frazier MD [Primary Care Provider, Medical] - As soon as possible Print Language: Tajik Disposition Disposition: Home, Self Care Discharge Date/Time: 03/16/25 20:39
[2025-03-16] MEDS: Orphenadrine 60 MG/2 ML Ampul IV (16:32)
[2025-03-16 16:36] LABS: Hematocrit 32.8 % (37-47); Hemoglobin 10.8 g/dL (12.0-15.0); Immature Granulocytes Count 0.000 X10^3/uL (0.0-0.0); Mean Corp Hgb Conc 32.9 g/dL (32-36); Mean Corpuscular Volume 90.6 fL (81-99); Mean Platelet Vol. 10.9 fl (6.2-12.0); NRBC Flagged by Analyzer 0 % (0-5); Platelet Count 116 K/mm3 (150-450); RBC Distribution Width CV 15.8 % (11.6-14.6); RBC Distribution Width SD 52.4 fl (35.1-43.9); Red Blood Count 3.62 M/mm3 (4.2-5.4); White Blood Count 4.0 K/mm3 (4.4-11.0)
[2025-03-16 16:56] LABS: Anion Gap 12 (5-15); BUN 15 mg/dL (4-19); BUN/Creat Ratio 18.8 RATIO (10-20); Calcium,Total 9.4 mg/dL (7.6-11.0); Carbon Dioxide 22.2 mmol/L (21.0-32.0); Chloride 103 mmol/L (98-108); Estimated Creatinine Clearance 52.12 ml/min (50-250); Glucose 94 mg/dL (70-99); Potassium 5.7 mmol/L (3.3-5.1)
[2025-03-16 18:00] VITALS: BP 123/75
--- NOTE | 2025-03-16 18:00 | EKG12_ITS ---
Test Reason : Blood Pressure : */* mmHG Vent. Rate : 73 BPM Atrial Rate : 73 BPM P-R Int : 176 ms QRS Dur : 82 ms QT Int : 412 ms P-R-T Axes : 49 -25 32 degrees QTcB Int : 453 ms Normal sinus rhythm Normal ECG Confirmed by PATRICIA DUFFY ([id number]), health editor MEBLA FLEMING ([id number]) on 03/18/2025 6:58:29 AM Referred By: Confirmed By: PATRICIA DUFFY
[2025-03-16 20:00] VITALS: BP 138/64; PULSE 68; RESP 14; O2SAT 98
[2025-03-16 20:37] VITALS: BP 127/56; PULSE 68; RESP 14; TEMP 36.6; O2SAT 99
== END 2025-03-16 20:39 | disposition home or self-care (01) ==
PROVIDERS: Emergency Provider Emergency Medicine; PCP Internal Medicine; Visit Provider Emergency Medicine
DX: M43.6 Torticollis (principal); C90.00 Multiple myeloma not having achieved remission; Z92.21 Personal history of antineoplastic chemotherapy; D72.819 Decreased white blood cell count, unspecified; S16.1XXA Strain of muscle, fascia and tendon at neck level, initial encounter; R51.9 Headache, unspecified; K21.9 Gastro-esophageal reflux disease without esophagitis; X58.XXXA Exposure to other specified factors, initial encounter
CPT/HCPCS: 70496; 70498; 80048; 85025; 93005; 96374; 96375; 99283; Q9967; A4216; J2405

== ENCOUNTER → 2025-03-19 | Outpatient (CLI) | payer MEDICARE, OTHER, SELFPAY ==
--- NOTE | 2025-03-19 16:09 | MRI_ITS ---
PROCEDURE: MRI/Brain W/WO Contrast
--- NOTE | 2025-03-19 16:09 | MRI_ITS ---
PROCEDURE: MRI/Spine Cervical W/WO Contrast
== END | disposition home or self-care (01) ==
LOC: OPMRI 15:55
PROVIDERS: PCP Internal Medicine; Referring Provider Nurse Practitioner Family; Visit Provider Nurse Practitioner Family
DX: R51.9 Headache, unspecified (principal); C90.00 Multiple myeloma not having achieved remission
CPT/HCPCS: 70553; 72156; A9575

== ENCOUNTER → 2025-04-23 | Outpatient (CLI) | payer MEDICARE, OTHER, SELFPAY ==
--- NOTE | 2025-04-23 13:45 | VDLE_ITS ---
Reason For Study Reason For Study: Right leg pain RIGHT LEFT GSV is normal. CFV is compressible, spontaneous, phasic, competent, CFV is compressible, spontaneous, phasic, competent and demonstrates normal augmentation. and demonstrates normal augmentation. FV is compressible, spontaneous, phasic, competent and demonstrates normal augmentation. POP V is compressible, spontaneous, phasic, competent and demonstrates normal augmentation. T/P Trunk is compressible. PTV is compressible. RT PerV is compressible. Procedure This is a venous duplex using B-mode, color flow and spectral Doppler. Exam performed in department. A preliminary report was called and/or faxed to Nita [facility]. VL/Venous Duplex US, Unilateral Interpretation Summary Deep veins of the right lower extremity are patent and compressible segmentally . There is no evidence of right lower extremity deep vein thrombosis. Valvular competence appears intact within the p roximal deep venous system on the right . The right great saphenous vein appears patent and compressible segmentally. The left common femoral vein is patent and compressible . Ordering Physician: Anika Smith Referring Physician: Thelma Frazier Performed By: Chetna Yoon RVT
--- NOTE | 2025-04-23 13:45 | US_ITS ---
PROCEDURE: THYROID 04/23/2025 REASON FOR EXAM: THYROID NODULE TECHNIQUE: Procedure Code: USTHY Modality: US Procedure: THYROID COMPARISON: None. FINDINGS: Transcutaneous 2-D grayscale and color Doppler ultrasound of the thyroid gland was performed. MEASUREMENTS: Right lobe: 4.6 x 2 x 1.3 cm. Left lobe: 3.6 x 1.6 x 1.3 cm. Isthmus: 3 mm. RIGHT SIDE: Homogeneous echotexture. No discrete lesion. LEFT SIDE: Homogeneous echotexture. No discrete lesion. ISTHMUS: No evidence of nodule or mass. Normal vascularity without microcalcification. No enlarged lymph nodes within the visualized neck. US/Thyroid IMPRESSION: Normal thyroid ultrasound. Reading Location: [id number]
== END | disposition home or self-care (01) ==
LOC: US 13:41
PROVIDERS: PCP Internal Medicine; Referring Provider Nurse Practitioner Family; Visit Provider Nurse Practitioner Family
DX: M79.661 Pain in right lower leg (principal); Z91.89 Other specified personal risk factors, not elsewhere classified; E04.1 Nontoxic single thyroid nodule
CPT/HCPCS: 76536; 93971

== ENCOUNTER 2025-04-30 16:45 | Emergency (ER) | payer MEDICARE, OTHER, SELFPAY ==
[2025-04-30 16:45] VITALS: BP 170/68; PULSE 80; RESP 16; TEMP 36.8; O2SAT 96; BMI 35.9
--- NOTE | 2025-04-30 17:27 | MRI_ITS ---
PROCEDURE: MRI SPINE LUMBAR (ROUTINE) 04/30/2025 REASON FOR EXAM: HX OF MULTIPLE MYELOMA, CONCERN FOR CAUDA EQUINA TECHNIQUE: Procedure Code: MRISPL Modality: MR Procedure: SPINE LUMBAR (ROUTINE) Multiplanar and multisequential MRI of the lumbar spine was performed without contrast. COMPARISON: 06/06/2023 FINDINGS: 5 [id number]-eut-[id number] lumbar-type vertebrae. No acute fracture or subluxation. Prominent chronic degenerative Schmorl's nodes with irregular height loss involving the superior and inferior endplates at the left aspect of L4 vertebral body noted, unchanged. Heterogeneous lesions with central T1 hypointensity and T2 hyperintensity within the right posterior superior iliac spine, not seen on prior exam. No other suspicious marrow lesion visualized. Mild spondylotic changes with varying degrees of disc desiccation, small anterior endplate osteophytes, and hypertrophic facet arthropathy. The conus is normal in signal and morphology, terminating at L1. Normal appearance of the cauda equina. No significant abnormality in the visualized paravertebral or retroperitoneal soft tissues. L1-2: No spinal canal or neural foraminal narrowing. L2-3: Mild dorsal annular disc bulge, with mild spinal canal and bilateral neural foraminal narrowing, slightly greater on the left. L3-4: Dorsal disc bulge and ligamentum flavum/facet hypertrophy results in moderate spinal canal narrowing with crowding of the cauda equina. Mild-moderate bilateral neural foraminal narrowing. L4-5: Dorsal disc bulge and ligamentum flavum/facet hypertrophy results in mild- moderate spinal canal narrowing, mild-moderate right and moderate-advanced left neural foraminal narrowing. L5-S1: Mild dorsal annular disc bulge, without significant spinal canal narrowing. Mild-moderate bilateral neural foraminal narrowing. MRI/Spine Lumbar (Routine) IMPRESSION: No acute abnormality. Mild multilevel spondylotic changes, with at most modera te spinal canal narrowing at L3-4 with crowding of the cauda equina, unchanged from prior exam. Neural foraminal narrowing is mos t advanced on the left at L4-5, more mild at the remaining levels. Heterogeneous T1 hypointense marrow lesions within the right posterior superior iliac spine, possibly related to multiple myeloma. Reading Location: [id number]
--- NOTE | 2025-04-30 17:40 | EX.ED.DYSGE1 ---
HPI History of Present Illness Chief Complaint: Back Narrative Narrative: Patient is a 75-year-old female with a past medical history of multiple myeloma undergoing therapy, hyperglycemia, breast cancer, neuropathy who presented to the emergency department from her primary care physician with concern for needing an MRI. When inquiring why she needs an MRI she states that she is having difficulty controlling her bladder and has been progressively worsening. States this has been going on a little bit before Thanksgiving. States that right before Thanksgiving she was extremely ill and not feeling well. According to at bedside he notes that she has shingles near her butt crack. Patient states that she was not aware that she had this. She notes that she is having normal bowel movements is not having any difficulty with this. Denies any other known injuries or trauma to her back. She denies any history of IV drug use. [facility] Medical History At high risk for deep venous thrombosis Right calf pain Thyroid nodule Cervical stenosis of spinal canal Left facial numbness Encounter for monoclonal antibody treatment for malignancy Hypokalemia Low back pain Impacted cerumen of right ear Dehydration Tenderness of back Neuropathy Dermatitis Tooth pain Encounter for chemotherapy management Iron deficiency Anemia in chronic illness Left hip pain Encounter for education Degenerative joint disease Breast cancer Multiple myeloma Hyperuricemia Carotid stenosis Hyperglycemia Carpal tunnel syndrome GERD (gastroesophageal reflux disease) Granuloma annulare COVID-19 Benign hypertension Medical History no medical history Home Medications ?Medication ?Instructions ?Recorded ?Last Taken ?Type allopurinol 100 mg tablet 100 mg PO DAILY 06/02/21 04/29/25 History furosemide 40 mg tablet 40 mg PO DAILY 06/02/21 04/29/25 History [employer] Pro DHA [place]-3 1 cap PO DAILY 06/30/21 04/29/25 History Osteoprime Ultra 2 tab PO BID 07/14/21 04/29/25 History Ten Mushroom 2 cap PO BID 07/14/21 04/29/25 History aspirin 81 mg tablet,delayed 81 mg PO DAILY 08/04/21 04/29/25 History release (Adult Low Dose Aspirin) Disability Placard #1 ea 12/15/21 Unknown Rx Euromedica Nerve Complex 1 cap PO BID 06/22/22 04/29/25 History valsartan 40 mg tablet 40 mg PO DAILY 07/19/23 04/29/25 History famotidine 20 mg tablet (Pepcid) 20 mg PO DAILY #30 tabs 02/02/24 04/29/25 Rx Kidney Aid 2 tab PO DAILY 02/21/24 04/29/25 History NAC 1 tab PO BID 02/21/24 04/29/25 History alpha lipoic acid 125 mg-biotin 95 2 cap PO DAILY 02/21/24 04/29/25 History mcg-berberine 250 mg capsule potassium chloride 20 mEq 40 meq (2 x 20 mEq) PO DAILY #6 06/05/24 04/29/25 Rx tablet,extended release(part/cryst) tabs spirolena 2 tab PO DAILY 08/28/24 04/29/25 History acyclovir 400 mg tablet 400 mg PO BID 30 days #60 tabs 12/25/24 04/29/25 Rx escitalopram oxalate 10 mg tablet 10 mg PO QDAY 02/19/25 04/29/25 History coenzyme Q10 300 mg capsule 300 mg PO DAILY 04/23/25 04/29/25 History calcium 300 mg-D3 25 mcg-magnesium 1 tab PO DAILY 04/30/25 04/29/25 History 66 mg-K2 37.5 mcg-herbal tablet (Alive Calcium-Vitamin D3-K2) gemfibrozil 600 mg tablet 600 mg PO DAILY 04/30/25 04/29/25 History lenalidomide 15 mg capsule 15 mg PO DAILY 04/30/25 04/09/25 History nifedipine 30 mg tablet,extended 30 mg PO DAILY 04/30/25 04/29/25 History release Allergy/AdvReac Type Severity Reaction Status Date / Time No Known Allergies Allergy Verified 04/30/25 16:46 Family History Father Lung cancer Smoker Brother , passed at 6 months of age Aplastic anemia Family History no significant family his Surgical History History of cataract extraction History of lumpectomy of both breasts History of left breast biopsy History of lymph node biopsy History of cervical polypectomy History of tubal ligation History of right breast biopsy History of cholecystectomy Hx of tonsillectomy Surgical History no surgical history Social History household members: spouse Smoking Status: Never smoker alcohol intake: never substance use type: does not use caffeine: Yes Type: coffee Number of servings: 1 ROS ROS ED ROS Narrative Constitutional: Denies any fevers or chill Abdomen: Denies abdominal pain nausea vomit diarrhea : Complains urinary symptoms as noted above Neurological: Denies any numbness, weeks, tingling Musculoskeletal: states that her back pain is the same Skin: Complains of shingles noted above EXAM Physical Exam Narrative Exam Narrative: General: Patient lying in bed rest comfortably did not appear to be acute distress Head: Atraumatic, Eyes: PERRL bilaterally, EOMI bilaterally, no conjunctival injection noted Neck: Soft, supple, trachea midline Cardiovascular: Regular rate Respiratory: Clear to auscultation bilaterally Abdomen: No tenderness to palpation Musculoskeletal: No tenderness palpation midline of thoracic lumbar spine Extremities: +4/5 strength noted in the bilateral lower extremities Neurological: Patient follow commands that she was at [facility] the year is 2024 NIH of 0 GCS 15. No saddle anesthesia noted Skin: Patient does have evidence of well-healed shingles noted near her scar butt crack Const Vital Signs: 04/30/25 16:45 04/30/25 18:51 04/30/25 20:00 Temperature 98.3 F Temperature Source Oral Pulse Rate 80 72 88 Respiratory Rate 16 16 Blood Pressure 170/68 H 157/69 H 157/69 H Blood Pressure Mean 102 98 98 Pulse Ox 96 96 99 Oxygen Delivery Method Room Air Room Air 04/30/25 22:00 Temperature Temperature Source Pulse Rate 80 Respiratory Rate Blood Pressure 148/70 H Blood Pressure Mean 96 Pulse Ox 100 Oxygen Delivery Method MDM MDM MDM Narrative Medical decision making narrative: Patient 75-year-old female who was sent by her primary care physician for MRI of her low back for concern for cauda equina syndrome. On the differential diagnose includes but not limited to cauda equina syndrome, UTI. Patient will bladder scan performed we will obtain blood cultures as well as she had a recent diagnosis of shingles that she was unaware of. I did review her blood work that she just had done today which showed a white count that is 2.9 which is stable, hemoglobin was 11, which is stable as well, plate count of 187. Patient sodium normal 136, [place] 4.1, creatinine normal at 0.72. Patient AST and ALT were 2014 respectively. Patient's urinalysis reviewed and showed no evidence of infection. Patient's lumbar spine still pending did reach out to radiology and they are still currently attempting to find a radiologist to read the MRI. Patient called out and wants to leave and I went in and discussed with her and she wants to leave AGAINST MEDICAL ADVICE. I discussed the risks of this including progressive worsening symptoms leading to neurological impairment she verbalized understanding of this and still like to go. She is advised to call her doctor tomorrow morning to follow-up on this report. All question concerns answered bedside Lab Data Labs: Laboratory Results - last 24 hr 04/30/25 19:10 Urine Color Yellow Urine Clarity Clear Urine pH 6.0 Ur Specific [place] 1.025 Urine Protein 100 H Urine Glucose (UA) Normal Urine Ketones 5 H Urine Occult Blood 10 H Urine Nitrite Negative Urine Bilirubin Negative Urine Urobilinogen Normal Ur Leukocyte Esterase 25 H Urine RBC 0-5 SEEN Urine WBC 0-5 SEEN Ur Squamous Epith Cells 0-5 SEEN Ur Transition Epith Cell 0-5 SEEN Urine Bacteria 0 SEEN Urine Mucus 0 SEEN Discharge Plan Triage Chief Complaint: Back ED Provider: Kapil Ramos Dx/Rx/DC Orders Clinical Impression: Back pain, Multiple myeloma, Neuropathy Prescriptions: No Action allopurinol 100 mg tablet 100 mg PO DAILY furosemide 40 mg tablet 40 mg PO DAILY [employer] Pro DHA [place]-3 capsule 1 cap PO DAILY Osteoprime Ultra tablet 2 tab PO BID Ten Mushroom capsule 2 cap PO BID aspirin [Adult Low Dose Aspirin] 81 mg tablet,delayed release (DR/EC) 81 mg PO DAILY (DME) Disability Placard See Rx Instructions .Route .MEDSUPPLY Qty: 1 0RF Rx Instructions: Lifetime Euromedica Nerve Complex 1 cap PO BID valsartan 40 mg tablet 40 mg PO DAILY famotidine [Pepcid] 20 mg tablet 20 mg PO DAILY Qty: 30 2RF NAC 1 tab PO BID a lipoic [id number] 125 mg-95 mcg- 250 mg capsule 2 cap PO DAILY Kidney Aid 2 tab PO DAILY potassium chloride 20 mEq tablet,ER particles/crystals 40 meq PO DAILY Qty: 6 0RF spirolena 2 tab PO DAILY acyclovir 400 mg tablet 400 mg PO BID 30 Days Qty: 60 12RF Rx Instructions: Start with start of chemotherapy escitalopram oxalate 10 mg tablet 10 mg PO QDAY coenzyme Q10 300 mg capsule 300 mg PO DAILY nifedipine 30 mg tablet extended release 30 mg PO DAILY lenalidomide 15 mg capsule 15 mg PO DAILY gemfibrozil 600 mg tablet 600 mg PO DAILY Alive Calcium-Vitamin D3-K2 300 mg-25 mcg- 66 mg-37.5 mcg tablet 1 tab PO DAILY Primary Care Provider: Thelma Frazier Referrals: Thelma Frazier MD [Primary Care Provider, Medical] Activity Restrictions/Additional Instructions: Follow-up on MRI report with your doctor. Return with worsening symptoms or any other concerns. Print Language: Swiss Disposition Disposition: Against Medical Advice
[2025-04-30 18:51] VITALS: BP 157/69; PULSE 72; O2SAT 96
[2025-04-30 19:16] LABS: Mucous, Urine 0 SEEN /hpf (<or=2+)
--- OUTSIDE RECORDS SUMMARY | 2025-04-30 19:18 | XMS RPT_ITS | CCD ---
Author Organization [facility] Care Team Providers Care Deck And Hull Assembler Name Role Phone Thelma Frazier Unavailable Unavailable Thelma Frazier S Unavailable Unavailable Maddi Garcia Unavailable Unavailable Thelma Frazier Unavailable Unavailable Unavailable Thelma Frazier Unavailable Ned Wilkes Unavailable Jeet Garcia Unavailable Thelma Frazier DO Primary Care Provider [phone] Pamela VILLANUEVA, Niels Unavailable Yuval VILLANUEVA, PhD, Paulo M Unavailable Unavailable Unavailable Dr. Thelma Frazier Primary Care Provider Dr. Thelma Frazier Referring Provider [phone] Dr. Yusuf Leyva Attending Provider Sarah VISUAL MERCHANDISER, VISUAL MERCHANDISER-Raphael Donaldson Attending Provider [phone] Thelma Frazier DO Primary Care Provider [phone] Jeet Garcia DO Unavailable Thelma Frazier Attending Unavailable Thelma Frazier Primary Care Unavailable hTelma Frazier Primary Care Unavailable Thelma Frazier Attending Unavailable Dr. Robina Ortega Attending Chantell vailable Thelma Frazier Primary Care Unavailable Dr. Thelma Frazier Primary Care Provider Dr. Thelma Frazier Referring Provider [phone] Sarah VISUAL MERCHANDISER, VISUAL MERCHANDISER-C Anika Attending Provider Dr. Yusuf Leyva Attending Provider Dr. Thelma Frazier Primary Care Provider Dr. Thelma Frazier Referring Provider Sarah VISUAL MERCHANDISER, VISUAL MERCHANDISER-C Anika Attending Provider Thelma Frazier DO Primary Care Provider Pamela VILLANUEVA, Niels Unavailable Yuval VILLANUEVA, PhD, Paulo Kinney Unavailable [facility], Yusuf S Unavailable Renetta Gonsalez RN Unavailable Unavailable Yuval Huang MD, PhD, Paulo Kinney Unavailable [phone] Thelma Frazier DO Primary Care Provider Thelma Frazier DO Primary Care Provider Pamela VILLANUEVA, Niels Unavailable Yuval Huang MD, PhD, Paulo Kinney Unavailable [phone] [facility], Mansour S Unavailable Renetta Gonsalez RN Unavailable Unavailable MUELLER, MADELINE Referring Unavailable THELMA FRAZIER Primary Care Unavailable MUELLER, MADELINE Attending Unavailable THELMA FRAZIER Primary Care Unavailable SELF, SELF Referring Unavailable ELOISE, MADELINE Attending Unavailable Thelma Frazier DO S Primary Care Provider Jeet Garcia DO Unavailable Dr. Thelma Frazier MD Primary Care Provider Dr. Thelma Frazier MD Referring Provider Sarah VISUAL MERCHANDISER-C, Anika Attending Provider Dr. Yusuf Leyva MD Attending Provider Dr. Thelma Frazier MD Attending Provider Dr. Yusuf Leyva MD Referring Provider Dr. Jeet Garcia DO Other Provider Sarah VISUAL MERCHANDISER-C, Anika Other Provider Dr. Thelma Frazier MD Primary Care Provider [phone] Dr. Thelma Frazier MD Referring Provider Sarah VISUAL MERCHANDISER-C, Anika Attending Provider Gordon VILLANUEVA, Dr. Goldberg Attending Provider Dr. Yusuf Leyva MD Referring Provider Dr. Jeet Garcia DO Other Provider Sarah VISUAL MERCHANDISER-C, Anika Other Provider Dr. Thelma Frazier MD Primary Care Provider Royal VILLANUEVA, Dr. Renee Referring Provider Sarah VISUAL MERCHANDISER-C, Anika Attending Provider Gordon VILLANUEVA, Dr. Goldberg Attending Provider Dr. Yusuf Leyva MD Referring Provider Dr. Jeet Garcia DO Other Provider Sarah VISUAL MERCHANDISER-C, Anika Other Provider Dr. Yusuf Leyva MD Referring Provider Dr. Jeet Garcia DO Other Provider Sarah VISUAL MERCHANDISER-C, Anika Other Provider Dr. Thelma Frazier MD Primary Care Provider Dr. Thelma Frazier MD Referring Provider Sarah VISUAL MERCHANDISER-C, Anika Attending Provider Dr. Yusuf Leyva MD Attending Provider Dr. Yusuf Leyva MD Referring Provider Dr. Jeet Garcia DO Other Provider Sarah VISUAL MERCHANDISER-C, Anika Other Provider Dr. Yusuf Leyva MD Referring Provider Dr. Jeet Garcia DO Other Provider Sarah VISUAL MERCHANDISER-C, Anika Other Provider Roselle DO, Thelma Primary Care Provider Gordon SMITH [facility], Yusuf S Unavailable ROYAL, THELMA Referring Unavailable ROYAL, THELMA Primary Care Unavailable BARAKAT JR.PAULO Attending Unavailable ROYAL, THELMA Referring Unavailable ROYAL, THELMA Primary Care Unavailable BARAKATPAULO VALENCIA JR. Attending Unavailable ROYAL, THELMA Referring Unavailable ROYAL, THELMA Primary Care Unavailable BARAKAT JR.PAULO Attending Unavailable ROYAL, THELMA Referring Unavailable BARAKAT JR.PAULO Attending Unavailable ROYAL, THELMA Primary Care Unavailable Dr. Thelma Frazier MD Primary Care Provider Dr. Thelma Frazier MD Referring Provider Sarah VISUAL MERCHANDISER-C, Anika Attending Provider Dr. Yusuf Leyva MD Referring Provider Dr. Jeet Garcia DO Other Provider Sarah VISUAL MERCHANDISER-C, Anika Other Provider Dr. Thelma Frazier MD Primary Care Provider Dr. Thelma Frazier MD Referring Provider Sarah VISUAL MERCHANDISER-C, Anika Attending Provider Dr. Yusuf Leyva MD Referring Provider Dr. Jeet Garcia DO Other Provider Sarah VISUAL MERCHANDISER-C, Anika Other Provider Thelma Frazier DO S. Primary Care Provider Dr. Thelma Frazier MD Primary Care Physician Dr. Thelma Frazier MD Referring Provider Dr. Yusuf Leyva MD Attending Physician Sarah VISUAL MERCHANDISER-C, Anika Attending Physician Dr. Yusuf Leyva MD Referring Provider Dr. Jeet Garcia DO Nurse Practitioner Sarah VISUAL MERCHANDISER-C, Anika Nurse Practitioner [phone] Roselle DO, Thelma S Primary Care Provider [phone] ROYAL, THELMA S. Referring Unavailable ROYAL, THELMA S. Primary Care Unavailable ROYAL, THELMA S. Admitting Unavailable VIVEK CHAPPELL Attending Unavailable Roselle, Thelma Primary Care Unavailable Isckarus, Mansour Attending Unavailable Roselle, Thelma Referring Unavailable Roselle, Thelma Primary Care Unavailable Sarah VISUAL MERCHANDISER, Anika Attending Unavailable Roselle, Thelma Referring Unavailable Roselle, Thelma Referring Unavailable Roselle, Thelma Primary Care Unavailable Isckarus, Mansour Attending Unavailable Roselle, Thelma Primary Care Unavailable Roselle, Thelma Referring Unavailable Isckarus, Mansour Attending Unavailable Roselle, Thelma Referring Unavailable Roselle, Thelma Primary Care Unavailable Isckarus, Mansour Attending Unavailable Roselle, Thelma Referring Unavailable Sarah VISUAL MERCHANDISER, Anika Attending Unavailable Roselle, Thelma Primary Care Unavailable Jeet Garcia Unavailable Roselle, Thelma Primary Care Unavailable Isckarus, Mansour Referring Unavailable Isckarus, Mansour Attending Unavailable Sarah VISUAL MERCHANDISER, Anika Consulting Unavailable Sarah VISUAL MERCHANDISER, Anika Referring Unavailable Saarh VISUAL MERCHANDISER, Anika Attending Unavailable Roselle, Thelma Primary Care Unavailable Roselle, Thelma Attending Unavailable Roselle, Thelma Primary Care Unavailable Roselle, Thelma Referring Unavailable Roselle, Thelma Primary Care Unavailable Montana Martinez Attending Unavailable Roselle, Thelma Referring Unavailable Roselle, Thelma Primary Care Unavailable Sarah VISUAL MERCHANDISER, Anika Attending Unavailable Roselle, Thelma Referring Unavailable Roselle, Thelma Primary Care Unavailable Sarah VISUAL MERCHANDISER, Anika Attending Unavailable Roselle, Thelma Referring Unavailable Roselle, Thelma Primary Care Unavailable Sarah VISUAL MERCHANDISER, Anika Attending Unavailable Roselle, Thelma Referring Unavailable Roselle, Thelma Primary Care Unavailable Sarah VISUAL MERCHANDISER, Anika Attending Unavailable Roselle, Thelma Referring Unavailable Roselle, Thelma Primary Care Unavailable Sarah VISUAL MERCHANDISER, Anika Attending Unavailable Roselle, Thelma Primary Care Unavailable Roselle, Thelma Referring Unavailable Sarah VISUAL MERCHANDISER, Anika Attending Unavailable Roselle, Thelma Primary Care Unavailable Roselle, Thelma Referring Unavailable Sarah VISUAL MERCHANDISER, Anika Attending Unavailable Roselle, Thelma Referring Unavailable Roselle, Thelma Primary Care Unavailable Sarah VISUAL MERCHANDISER, Anika Attending Unavailable Roselle, Thelma Primary Care Unavailable Roselle, Thelma Referring Unavailable IscYusuf correa Attending Unavailable Roselle, Thelma Primary Care Unavailable Roselle, Thelma Referring Unavailable Sarah VISUAL MERCHANDISER, Anika Attending Unavailable Roselle, Thelma Referring Unavailable Sarah VISUAL MERCHANDISER, Anika Attending Unavailable Roselle, Thelma Primary Care Unavailable Roselle, Thelma Referring Unavailable Sarah VISUAL MERCHANDISER, Anika Attending Unavailable Roselle, Thelma Primary Care Unavailable Roselle, Thelma Referring Unavailable Roselle, Thelma Primary Care Unavailable Sarah VISUAL MERCHANDISER, Anika Attending Unavailable Roselle, Thelma Referring Unavailable Roselle, Thelma Primary Care Unavailable Yusuf Leyva Attending Unavailable ROYAL, THELMA S Primary Care Unavailable SHIRA MILLARD Attending Unavailable ROYAL, THELMA S Referring Unavailable ROYAL, THELMA S Primary Care Unavailable LEROBINA Phelps Referring Unavailable ROYAL, THELMA S Primary Care Unavailable LEROBINA Phelps Referring Unavailable ROYAL, THELMA S Primary Care Unavailable ROYAL, THELMA S Primary Care Unavailable PAWAN VELAZQUEZ Attending Unavailable ROYAL, THELMA S Primary Care Unavailable CLARKE DUNBAR Referring Unavailable ROYAL, THELMA S Primary Care Unavailable ROYAL, THELMA S Referring Unavailable ROYAL, THELMA S Primary Care Unavailable ROYAL, THELMA S Referring Unavailable ROYAL, THELMA S Primary Care Unavailable ROYAL, THELMA S Primary Care Unavailable LEROBINA Phelps Referring Unavailable ROYAL, THELMA S Primary Care Unavailable LEROBINA Phelps Referring Unavailable ROYAL, THELMA S Primary Care Unavailable ROYAL, THELMA S Attending Unavailable ROYAL, THELMA S Primary Care Unavailable ROYAL, THELMA S Attending Unavailable ROYAL, THELMA S Referring Unavailable ROYAL, THELMA S Primary Care Unavailable ROYAL, THELMA S Attending Unavailable ROYAL, THELMA S Referring Unavailable ROYAL, THELMA S Primary Care Unavailable LEBROBINA Attending Unavailable ROYAL, THELMA S Referring Unavailable ROYAL, THELMA S Primary Care Unavailable LEB, ROBINA Phelps Attending Unavailable ROYAL, THELMA S Primary Care Unavailable ROYAL, THELMA S Attending Unavailable ROYAL, THELMA S Primary Care Unavailable ROYAL, THELMA S Attending Unavailable ROYAL, THELMA S Primary Care Unavailable ROYAL, THELMA S Attending Unavailable ROYAL, THELMA S Primary Care Unavailable ROYAL, THELMA S Attending Unavailable ROYAL, THELMA S Primary Care Unavailable RYAN GRIER Attending THELMA Friedman Primary Care Unavailable THELMA FRAZIER Attending Unavailable THELMA FRAZIER Referring Unavailable THELMA FRAZIER Primary Care Unavailable MADDI GARCIA Attending Unavailable THELMA FRAZIER Primary Care Unavailable Medications Current Medications Medication Drug Class(es) Dates Sig (Normalized) Sig (Original) A Lipoic Japo-Zmwphi-Bvmtugziv 125 mg-95 mcg- 250 mg capsule (9 sources) Start: 02-21-2024 Start: 02-21-2024 A Lipoic Acid- Biotin-Berberine 125 mg-95 mcg- 250 mg capsule Active NMA PO February 21, 2024 12:00am allopurinol 100 mg oral tablet (20 sources) Xanthine Oxidase Inhibitor Start: 04-14-2021 End: 10-18-2024 take 1 tablet by mouth once daily allopurinol (Zyloprim) 100 mg tablet Indications: Hyperuricemia Take 1 tablet (100 mg) by mouth once daily. 90 tablet 3 10/18/2024 Active amoxicillin 500 mg oral capsule (20 sources) Penicillin-class Antibacterial Start: 08-18-2024 End: 08-24-2024 take 1 capsule by mouth twice daily amoxicillin (Amoxil) 500 mg capsule Indications: Acute bacterial sinusitis Take 1 capsule (500 mg) by mouth 2 times a day for 6 days. 12 capsule 08/18/2024 08/24/2024 Active Start: 04-18-2024 End: 04-25-2024 take 1 tablet by mouth twice daily amoxicillin (Amoxil) 875 mg tablet Indications: Left otitis media, unspecified otitis media type , Upper respiratory tract infection, unspecified type Take 1 tablet (875 mg) by mouth 2 times a day for 7 days. 14 tablet 04/18/2024 04/25/2024 Active Start: 07-09-2022 take 1 tablet by lexii th once daily Amoxicillin 875 MG Oral Tablet TAKE 1 TABLET EVERY 12 HOURS DAILY. Quantity: 20 Refills: 0 Ordered: 09-Jul-2022 Thelma Frazier DO Start : 09-Jul-2022 Active Start: 07-14-2021 End: 07-28-2021 take 1 capsule by mouth every twelve hours Amoxicillin 500 mg capsule Discontinued 500 mg PO Q12H July 14, 2021 1:00am July 28, 2021 11:19am Start: 07-08-2021 take 1 tablet by lexii th once daily Amoxicillin 500 MG Oral Tablet TAKE 1 TABLET EVERY 12 HOURS DAILY. Quantity: 20 Refills: 0 Ordered: 08-Jul-2021 Thelma Frazier DO Start : 08-Jul-2021 Active amoxicillin 875 mg / clavulanate 125 mg oral tablet (14 sources) Penicillin-class Antibacterial Start: 06-12-2024 End: 06-22-2024 take 1 tablet by mouth twice daily amoxicillin-pot clavulanate (Augmentin) 875-125 mg tablet Indications: Community acquired pneumonia, unspecified laterality Take 1 tablet (875 mg) by mouth 2 times a day for 10 days. 20 tablet 06/12/2024 06/22/2024 Active Start: 09-15-2022 End: 09-28-2022 Amoxicillin-Pot Clavulanate 875-125 mg tablet Discontinued 1 {tbl} PO TWICE A DAY September 15, 2022 12:00am September 28, 2022 10:21am Ashwagandha Root Extract (2 sources) Start: 05-10-2023 Ashwagandha Ro ot Extract Active CAP PO May 10, 2023 12:00am aspirin 81 mg chewable tablet (20 sources) Platelet Aggregation Inhibitor, Nonsteroidal Anti-inflammatory Drug Start: 08-22-2023 End: 08-23-2024 aspirin 81 mg chewable tablet Indications: Coronary artery calcification Chew 1 tablet (81 mg) once daily. 30 tablet 11 08/22/2023 08/23/2024 Active Start: 08-04-2021 Aspirin (Adult Low Dose Aspirin) 81 mg tablet,delayed release (DR/EC) Active 81 mg PO DAILY August 04, 2021 12:00am Complies with drug therapy Start: 06-02-2021 aspirin 81 mg capsule 06/02/2021 Active benzonatate 200 mg oral capsule (13 sources) Non-narcotic Antitussive Start: 06-06-2024 End: 07-12-2024 take 1 capsule by mouth three times daily as needed benzonatate 200 MG capsule Take 1 capsule by mouth 3 times daily as needed. 06/06/2024 Active Start: 07-09-2022 take 1 capsule by mo uth three times daily as needed Benzonatate 200 MG Oral Capsule TAKE 1 CAPSULE 3 TIMES DAILY NEEDED. Quantity: 30 Refills: 0 Ordered: 09-Jul-2022 Thelma Frazier DO Start : 09-Jul-2022 Active Bioflavonoid Products (VANNESSA C PO) (3 sources) take 4000 mg by mout h at bedtime Bioflavonoid Products (VANNESSA C PO) Indications: Invasive ductal carcinoma of breast, left , Other specified pre-operative examination take 4,000 mg by mouth at bedtime. Active take 4000 mg by mouth at bedtime Bioflavonoid Products (VANNESSA C PO) Indications: Invasive ductal carcinoma of breast, left , Other specified pre-operative examination take 4,000 mg by mouth at bedtime. 0 Active brompheniramine maleate 0.4 mg/ml / dextromethorphan hydrobromide 2 mg/ml / pseudoephedrine hydrochloride 6 mg/ml oral solution (13 sources) alpha-Adrenergic Agonist, Uncompetitive U-hzwjnx-B-aspartate Receptor Antagonist, Sigma-1 Agonist Start: 06-10-2024 End: 06-20-2024 take 10 mL by mouth every six hours as needed pyymchtywkrvzzx-onlzpuyzxajxwou-rsphwhca thorphan 30-2-10 MG/5ML Syrup Take 10 mL by mouth every 6 hours as needed for up to 10 days. 200 mL 06/10/2024 Active Start: 04-18-2024 take 5 mL by mouth every four hours for cough sirknyqmgamjwer-mjfrotthw-EF (Bromfed DM ) 2-30-10 mg/5 mL syrup Indications: Left otitis media, unspecified otitis media type , Upper respiratory tract infection, unspecified type Take 5 mL by mouth every 4 hours if needed for allergies, congestion or cough. 120 mL 04/18/2024 Active cholecalciferol 0.125 mg ora l capsule (20 sources) Vitamin D Start: 02-21-2024 take 1 capsule by mo uth once daily Start: 06-02-2021 End: 06-16-2021 take 1 tablet by mouth once daily Cholecalciferol (Vitamin D3) 25 mcg (1,000 unit) tablet Discontinued 5000 U PO DAILY June 02, 2021 3:00pm June 16, 2021 11:14am Start: 06-01-2021 End: 06-02-2021 take 1 tablet by mouth once daily Cholecalciferol (Vitamin D3) 25 mcg (1,000 unit) tablet Discontinued 25 ug PO DAILY June 01, 2021 1:00am June 02, 2021 3:03pm take 1 tablet by lexii once daily Vitamin D3 1000 units Tab tablet Take 1,000 Units by mouth daily. Active choline 500 mg oral tablet (1 source) take 1 tablet by mouth once daily choline 500 mg oral tablet ; orally once a day Quantity: 0 Refills: 0 Ordered: 19-May-2021 Olivia Pan Generic Substitution Allowed clobetasol propionate 0.5 mg/ml topical cream (20 sources) Corticosteroid Start: 02-24-2021 End: 08-26-2022 clobetasol (Temovate) 0.05 % cream Clobetasol Propionate 0.05 % External Cream Quantity: 45 Refills: 0 Start : 24-Feb-2021 Active 0 02/24/2021 08/26/2022 Discontinued (Therapy completed) Start: 02-24-2021 Clobetasol Pro pionate 0.05 % External Cream Quantity: 45 Refills: 0 Ordered: 24-Feb-2021 DO Start : 24-Feb-2021 Active colestipol hydrochloride 1000 mg oral tablet (1 source) Bile Acid Sequestrant Start: 10-24-2023 take 1 tablet by mouth twice daily colestipol 1 g tablet Take 1 tablet by mouth 2 times daily. 60 tablet 10/24/2023 Active daratumumab-hyaluro nidase-fihj (DARZALEX FASPRO SUBQ) (20 sources) daratumumab-hyal ur onidase-fihj (DARZALEX FASPRO SUBQ) Inject under the skin. Active dexamethasone 4 mg oral tablet (20 sources) Corticosteroid Start: 01-26-2024 dexAMETHasone (Decadron) 4 mg tablet 01/26/2024 Active Start: 01-26-2024 take 5 tablets by mo [facility] once daily after breakfast Start: 03-15-2023 End: 01-26-2024 Dexamethasone 4 mg tablet Discontinued 40 mg PO EVERY WEEK 120 March 15, 2023 11:41am January 26, 2024 11:53am Multiple myeloma Multiple myeloma not having achieved remission Take 40 mg After breakfast Weekly On days scheduled for injectable chemotherapy Start: 03-15-2023 take 40 mg by mouth every week after breakfast Dexamethasone Active 40 MG PO EVERY WEEK 120 March 15, 2023 10:41am Take 40 mg After breakfast Weekly On days scheduled for injectable chemotherapy Start: 06-02-2021 End: 12-06-2023 dexAMETHasone (Decadron) 4 m g tablet Take 10 tablets (40 mg) by mouth 1 (one) time per week. TAKE 5 TABLETS BY MOUTH ONCE A WEEK. TAKE AFTER BREAKFAST WEEKLY ON DAYS SCHEDULED FOR INJECTABLE CHEMOTHERAPY 06/02/2021 12/06/2023 Discontinued (Med List Cleanup) Start: 06-02-2021 End: 03-15-2023 take 5 tablets by mouth every week after breakfast Dexamethasone 4 MG tablet Discontinued 20 mg PO EVERY WEEK 50 4 March 02, 2022 11:10am July 06, 2022 11:28am Multiple myeloma Multiple myeloma not having achieved remission Take 20 mg After breakfast Weekly On days scheduled for injectable chemotherapy Start: 06-02-2021 End: 03-15-2023 take 20 mg by mouth every week after breakfast Dexamethasone Discontinued 20 MG PO EVERY WEEK 50 March 02, 2022 10:10am July 06, 2022 10:28am Take 20 mg After breakfast Weekly On days scheduled for injectable chemotherapy DEXAMETHASONE PO Take 20 mg by mouth See admin instructions. Take 20 mg weekly for 2 weeks and off for 1 week Active diclofenac sodium 0.01 mg/mg topical gel (16 sources) Nonsteroidal Anti-inflammatory Drug Start: 04-02-2025 diclofenac sodium (Voltaren) 1 % gel Indications: osteoarthritis Apply 4.5 inches (4 g) topically 4 times a day as needed (USE NEEDED FOR PAIN IN HANDS/WRISTS). 100 g 1 04/02/2025 Active Start: 09-01-2021 End: 06-22-2022 apply 2 g topically once Diclofenac Sodium 1 % gel Di scontinued 2 g TOPICAL ONCE September 01, 2021 12:00am June 22, 2022 11:35am apply to single elbow, wrist or hand; for hand includes palm/fingers/back of hand Start: 09-01-2021 End: 06-22-2022 apply 2 g topically once Diclofenac Sodium Discontinu ed 2 GM TOPICAL ONCE August 31, 2021 11:00pm June 22, 2022 10:35am apply to single elbow, wrist or hand; for hand includes palm/fingers/back of hand Digestive Advantage Daily Probiotics oral capsule (1 source) take 1 capsule by mouth once daily Digestive Advantage Daily Probiotics oral capsule ; 1 cap(s) orally once a day Quantity: 0 Refills: 0 Ordered: 17-Apr-2021 Chetna Sharp Generic Substitution Allowed Disability Placard (12 sources) Start: 12-15-2021 Disability Placard Active 0 .Route .MEDSUPPLY 1 December 15, 2021 12:00am Multiple myeloma Pain of left hip Multiple myeloma not having achieved remission Pain in left hip Lifetime Start: 12-15-2021 Disability Sonya card Active 0 .Route .MEDSUPPLY December 15, 2021 12:00am Lifetime Start: 12-15-2021 Disability Sonya card Active 0 .Route .MEDSUPPLY December 14, 2021 11:00pm Lifetime doxycycline hyclate 100 mg oral capsule (2 sources) Tetracycline-class Drug Start: 08-13-2024 End: 08-23-2024 doxycycline (Vibramycin) 100 mg capsule Indications: Acute bacterial sinusitis Take 1 capsule (100 mg) by mouth 2 times a day for 10 days. Take with at least 8 ounces (large glass) of water, do not lie down for 30 minutes after 20 capsule 08/13/2024 08/23/2024 Active escitalopram 10 mg oral tablet (8 sources) Serotonin Reuptake Inhibitor Start: 02-19-2025 take 5 mg by mouth once daily Start: 02-14-2025 End: 09-07-2025 take 1 tablet by mouth once daily escitalopram (Lexapro) 10 mg tablet Indications: Anxiety Take 1 tablet (10 mg) by mouth once daily. 90 tablet 1 03/11/2025 09/07/2025 Active Eu[employer]ica Nerve Complex (11 sources) Start: 06-22-2022 Euromedica Ner ve Complex Active 1 NMA PO TWICE A DAY June 22, 2022 1:00am Complies with drug therapy Start: 06-22-2022 Euromedica Ner ve Complex Active 1 NMA PO TWICE A DAY June 22, 2022 1:00am Start: 06-22-2022 take 1 capsule by [facility] twice daily Euromedica Nerve Complex Active 1 CAP PO TWICE A DAY June 22, 2022 12:00am famotidine 20 mg oral tablet (20 sources) Histamine-2 Receptor Antagonist Start: 10-11-2024 take 1 tablet by mouth twice daily famotidine (Pepcid) 20 mg tablet Indications: Gastroesophageal reflux disease without esophagitis Take 1 tablet (20 mg) by mouth 2 times a day. 200 tablet 1 10/11/2024 Active Start: 05-18-2023 End: 04-12-2024 take 1 tablet by mouth twice daily famotidine (Pepcid) 20 mg tablet Indications: Gastroesophageal reflux disease without esophagitis Take 1 tablet (20 mg) by mouth 2 times a day. 200 tablet 1 04/12/2024 Active Start: 06-03-2021 End: 02-02-2024 take 1 tablet by mouth once daily Famotidine (Pepcid) 20 mg tablet Discontinued 20 mg PO DAILY 30 July 06, 2022 11:16am February 02, 2024 4:50pm Multiple myeloma Multiple myeloma not having achieved remission famotidine (Pepc id) 40 MG tablet Take 1 tablet by mouth See admin instructions. Take weekly for 2 weeks and off 1 week Active furosemide 40 mg oral tablet (20 sources) Loop Diuretic Start: 07-09-2023 furosemide (La six) injection 20 mg Start: 02-11-2020 End: 10-18-2024 furosemide (Lasix) 40 mg tab let Indications: Bilateral leg edema Take 1 tablet (40 mg) by mouth once daily. And may take one extra for increase in peripheral edema 90 tablet 3 10/18/2024 Active HERBAL PRODUCT (20 sources) HERBAL PRODUCT 2 tablets 2 times daily. Graviola Active HERBAL PRODUCT n ingxia Active HERBAL PRODUCT c yruta +t Active HERBAL PRODUCT c ataplex Active HERBAL PRODUCT c ongaplex Active HERBAL PRODUCT e mzymacore Active HERBAL PRODUCT O zina 3 Active HERBAL PRODUCT s panish black radish Active HERBAL PRODUCT K idney Well Active HERBAL PRODUCT J oint Ease Active HERBAL PRODUCT P ectasol C Active HERBAL PRODUCT 2 tablets 2 times daily. Graviola 0 Active HERBAL PRODUCT n ingxia 0 Active HERBAL PRODUCT c yruta +t 0 Active HERBAL PRODUCT c ataplex 0 Active HERBAL PRODUCT c ongaplex 0 Active HERBAL PRODUCT e mzymacore 0 Active HERBAL PRODUCT O zina 3 0 Active HERBAL PRODUCT s panish black radish 0 Active HERBAL PRODUCT K idney Well 0 Active HERBAL PRODUCT J oint Ease 0 Active HERBAL PRODUCT P ectasol C 0 Active homatropine methylbromide 0.3 mg/ml / HYDROcodone bitartrate 1 mg/ml oral solution (3 sources) Opioid Agonist, Cholinergic Muscarinic Agonist Start: 05-31-2024 End: 06-06-2024 hydrocodone-homatropine (Hycodan) 5-1.5 mg/5 mL syrup Indications: Influenza A , Acute cough Take 5 mL by mouth every 6 hours if needed for cough for up to 5 days. 100 mL 05/31/2024 5:34 PM EST 05/31/2024 06/06/2024 Active immuplex (1 source) immuplex ; once a day Quantity: 0 Refills: 0 Ordered: 19-May-2021 Olivia Pan Generic Substitution Allowed Joint Ease 2.0 (3 sources) Start: 07-14-2021 take 2 capsules by mouth twice daily Joint Ease 2.0 Active 2 CAP PO TWICE A DAY July 14, 2021 12:00am ketoconazole 20 mg/ml topical cream (20 sources) Azole Antifungal Start: 06-23-2022 End: 10-18-2024 ketoconazole (NIZOral) 2 % cream Apply 1 Application topically 1 time if needed. 06/23/2022 10/18/2024 Discontinued (Discontinued by another clinician) Start: 04-21-2022 Ketoconazole 2 % External Shampoo Quantity: 120 Refills: 0 Ordered: 21-Apr-2022 DO Start : 21-Apr-2022 Active Kidney Aid (9 sources) Start: 02-21-2024 Start: 02-21-2024 Kidney Aid Act flaquito PO February 21, 2024 12:00am lenalidomide 15 mg oral capsule (20 sources) Thalidomide Analog Start: 03-26-2025 lenalidomid e (Revlimid) 15 mg capsule 03/26/2025 Active Start: 05-10-2023 End: 01-31-2025 Start: 06-10-2021 End: 08-26-2022 lenalidomide (Revlimid) 15 m g capsule Revlimid 15 MG Oral Capsule Quantity: 14 Refills: 0 Start : 10-Jun-2021 Active 0 06/10/2021 08/26/2022 Discontinued (Therapy completed) Magnesium (3 sources) MAGNESIUM PO Silvio e by mouth. Active MAGNESIUM PO Silvio e by mouth. 0 Active Multiple Vitamins-Minerals ( OSTEOPRIME ULTRA PO) (7 sources) Multiple Vitamin s-Minerals (OSTEOPRIME ULTRA PO) Take by mouth. Active Multiple Vitamin s-Minerals (OSTEOPRIME ULTRA PO) Take by mouth. 0 Active NAC (9 sources) Start: 02-21-2024 Start: 02-21-2024 NAC Active PO February 21, 2024 12:00am naproxen 500 mg oral tablet (11 sources) Nonsteroidal Anti-inflammatory Drug Start: 03-27-2024 take 1 tablet by mouth twice daily Start: 12-06-2023 End: 12-16-2023 take 1 tablet by mouth twice daily naproxen (Naprosyn) 500 mg tablet Indications: Bilateral hip pain Take 1 tablet (500 mg) by mouth 2 times daily (morning and late afternoon) for 10 days. 20 tablet 12/06/2023 12/16/2023 Active 24 hr NIFEdipine 30 mg extended release oral tablet (20 sources) Dihydropyridine Calcium Channel Renzo Start: 10-18-2024 End: 10-18-2025 take 1 tablet by mouth once daily before mealtime NIFEdipine ER (Adalat CC) 30 mg 24 hr tablet Indications: HTN (hypertension), benign Take 1 tablet (30 mg) by mouth once daily in the morning. Take before meals. Do not crush, chew, or split. 30 tablet 10/18/2024 10/18/2025 Active Start: 06-23-2023 Start: 06-14-2023 End: 07-19-2023 take 1 tablet by mouth once daily Nifedipine 30 mg tablet extended release Discontinued 30 mg PO DAILY June 14, 2023 1:00am July 19, 2023 3:31pm Start: 06-08-2023 End: 12-05-2023 take 1 tablet by mouth once daily NIFEdipine ER (Adalat CC) 90 mg 24 hr tablet Indications: HTN (hypertension), benign Take 1 tablet (90 mg) by mouth once daily. Do not crush, chew, or split. 30 tablet 5 06/08/2023 12/05/2023 Active Start: 04-29-2023 End: 04-12-2025 take 1 tablet by mouth once daily Nifedipine 60 mg tablet extended release Discontinued 60 mg PO DAILY May 10, 2023 1:00am October 23, 2024 3:17pm Start: 12-03-2019 End: 05-10-2023 take 1 tablet by mouth once daily Nifedipine 30 mg tablet extended release Discontinued 30 mg PO DAILY June 01, 2021 1:00am May 10, 2023 11:29am Start: 12-03-2019 take 0.5 tablet by m outh once daily NIFEdipine ER 30 MG Oral Tablet Extended Release 24 Hour TAKE 0.5 TABLET Daily Quantity: 45 Refills: 3 Ordered: 18-Jun-2021 Maged DNP, ELECTRICAL PROSPECTING ENGINEER-PROGRAM PRODUCTION SPECIALIST, Maddi Start : 03-Dec-2019 Active take 1 tablet by lexii th once daily NIFEdipine 30 MG (OSM) tablet XL Take 30 mg by mouth daily. Active nirmatrelvir-ritonavir (Paxlovid) 300 mg (150 mg x 2)-100 mg tablet therapy pack (1 source) Start: 07-04-2023 End: 07-09-2023 take 3 tablets by mouth twice daily nirmatrelvir-ritonavir (Paxlovid) 300 mg (150 mg x 2)-100 mg tablet therapy pack Indications: COVID-19 virus infection Take 3 tablets by mouth 2 times a day for 5 days. Follow the instructions on the package 30 tablet 0 07/04/2023 07/09/2023 Active [place] [employer] Pro DHA [place]-3 (3 sources) Start: 06-30-2021 take 1 capsule by mouth once daily [place] [employer] Pro DHA [place]-3 Active 1 CAP PO DAILY June 30, 2021 12:00am [place] [employer] Pro DHA [place]-3 capsule (9 sources) Start: 06-30-2021 [place] [employer] Pro DHA [place]-3 capsule Active 1 NMA PO DAILY 0 June 30, 2021 1:00am Complies with drug therapy Start: 06-30-2021 [place] [employer] Pro DHA [place]-3 capsule Active 1 NMA PO DAILY 0 June 30, 2021 1:00am Start: 06-30-2021 [place] [employer] Pro DHA [place]-3 capsule Active 1 NMA PO DAILY June 30, 2021 1:00am [place]-3 Fatty Acids (6 sources) Start: 06-02-2021 take 1000 mg by mout h once [place]-3 Fatty Acids Active 1000 MG PO ONCE June 02, 2021 2:01pm Start: 06-01-2021 End: 06-02-2021 take 1000 mg by mouth once daily [place]-3 Fatty Acids Discontinued 1000 MG PO DAILY June 01, 2021 12:00am June 02, 2021 2:03pm Osteoprime Ultra (3 sources) Start: 07-14-2021 take 2 tablets by mouth twice daily Osteoprime Ultra Active 2 TABLET PO TWICE A DAY July 14, 2021 12:00am Osteoprime Ultra tablet (9 sources) Start: 07-14-2021 Osteoprime Ult ra tablet Active 2 {tbl} PO TWICE A DAY 0 July 14, 2021 1:00am Complies with drug therapy Start: 07-14-2021 Osteoprime Ult ra tablet Active 2 {tbl} PO TWICE A DAY 0 July 14, 2021 1:00am Start: 07-14-2021 Osteoprime Ult ra tablet Active 2 {tbl} PO TWICE A DAY July 14, 2021 1:00am Paur'de'arc (9 sources) Start: 03-20-2024 take 3 doses by mouth twice da tammy Start: 03-20-2024 take 3 doses by mout h twice daily Paur'de'arc Active PO March 20, 2024 12:00am 3 pills twice a day microencapsulated potassium chloride 20 meq extended release oral tablet (13 sources) Start: 06-05-2024 potassium chlo ride CR 20 mEq ER tablet microencapsulated potassium chloride 20 meq extended release oral tablet (9 sources) Start: 06-05-2024 take 2 tablets by mouth once daily 06/05/2024 Active Start: 06-05-2024 take 2 tablets by mouth once d aily predniSONE 10 mg oral tablet (15 sources) Start: 04-18-2024 End: 04-21-2024 take 1 tablet by mouth twice daily predniSONE (Deltasone) 10 mg tablet Indications: Left otitis media, unspecified otitis media type , Upper respiratory tract infection, unspecified type Take 1 tablet (10 mg) by mouth 2 times daily (morning and late afternoon) for 3 days. 6 tablet 04/18/2024 04/21/2024 Active Start: 07-09-2023 End: 07-14-2023 take 1 tablet by mouth once daily predniSONE (Deltasone) 50 mg tablet Indications: Pneumonia due to COVID-19 virus Take 1 tablet (50 mg) by mouth once daily for 5 days. 5 tablet 0 07/09/2023 07/14/2023 Active Start: 04-12-2023 End: 05-10-2023 Prednisone 10 mg tablet Disc ontinued mg PO April 12, 2023 1:00am May 10, 2023 11:30am Start: 04-12-2023 End: 05-10-2023 Prednisone Discontinued MG P O April 12, 2023 12:00am May 10, 2023 10:30am Probiotic Product (PRO-BIOTI C BLEND PO) (3 sources) Probiotic Produc t (PRO-BIOTIC BLEND PO) Take by mouth. Active Probiotic Produc t (PRO-BIOTIC BLEND PO) Take by mouth. 0 Active spirolena (8 sources) Start: 08-28-2024 Start: 08-28-2024 spirolena Acti ve PO August 28, 2024 12:00am Ten Mushroom (3 sources) Start: 07-14-2021 take 10 capsules by mouth twice daily Ten Mushroom Active 2 CAP PO TWICE A DAY July 14, 2021 12:00am Ten Mushroom capsule (9 sources) Start: 07-14-2021 take 10 capsules by mouth twice daily Ten Mushroom capsule Active 2 NMA PO TWICE A DAY 0 July 14, 2021 1:00am Complies with drug therapy Start: 07-14-2021 take 10 capsules by mouth twice daily Ten Mushroom capsule Active 2 NMA PO TWICE A DAY 0 July 14, 2021 1:00am Start: 07-14-2021 take 10 capsules by mouth twice daily Ten Mushroom capsule Active 2 NMA PO TWICE A DAY July 14, 2021 1:00am thioctic acid 200 mg oral capsule (7 sources) take 1 capsule by mouth twice daily Alpha-Lipoic Acid 200 MG capsule Take 1 capsule by mouth 2 times daily. Active valsartan 40 mg oral tablet (20 sources) Angiotensin 2 Receptor Renzo Start: End: take 1 tablet by mouth once daily valsartan (Diovan) 40 mg tablet Indications: HTN (hypertension), benign Take 1 tablet (40 mg) by mouth once daily. 100 tablet 1 10/11/2024 10/11/2025 Active Start: 09-15-2020 End: 06-23-2021 take 1 tablet by mouth once daily Valsartan 320 mg tablet Discontinued 320 mg PO DAILY June 02, 2021 1:00am June 23, 2021 11:16am Vitamin D-Vitamin K (D3 + K2 DOTS PO) (7 sources) take 1 tablet by lexii th once daily Vitamin D-Vitamin K (D3 + K2 DOTS PO) Take 1 tablet by mouth daily. Active take 1 tablet by mouth once adams y Vitamin D-Vitamin K (D3 + K2 DOTS PO) Take 1 tablet by mouth daily. 0 Active Completed/Discontinued Medications Medication Drug Class(es) Dates Sig (Normalized) Sig (Original) acetaminophen 325 mg / dextromethorphan hydrobromide 10 mg / phenylephrine hydrochloride 5 mg oral capsule (1 source) Uncompetitive I-trpfxk-X-asparta te Receptor Antagonist, Sigma-1 Agonist, alpha-1 Adrenergic Agonist Start: 04-27-2022 End: 06-22-2022 Xjyellsgwyuje-Td-Jb etaminophen (Mucinex Fast-Max Skyler-Walton (Dm)) 5-10-325 mg capsule Discontinued 1 NMA PO TWICE A DAY as needed for Cough April 27, 2022 1:00am June 22, 2022 11:36am acetylcysteine 600 mg oral capsule (12 sources) Antidote, Mucolytic, Antidote for Acetaminophen Overdose Start: 06-16-2021 End: 07-14-2021 take 1 capsule by mouth twice daily Acetylcysteine (Nac) 600 mg capsule Discontinued 600 mg PO TWICE A DAY June 16, 2021 1:00am July 14, 2021 11:58am acyclovir 400 mg oral tablet (20 sources) Herpesvirus Nucleoside Analog DNA Polymerase Inhibitor, Herpes Simplex Virus Nucleoside Analog DNA Polymerase Inhibitor, Herpes Zoster Virus Nucleoside Analog DNA Polymerase Inhibitor Start: 06-02-2021 End: 12-06-2023 take 1 tablet by mouth once daily acyclovir (Zovirax) 400 mg tablet Take 1 tablet (400 mg) by mouth once daily. For 30 days with the start of chemotherapy 06/02/2021 Active Start: 06-02-2021 End: 12-25-2024 take 1 tablet by mouth twice daily Acyclovir 400 mg tablet Discontinued 400 mg PO TWICE A DAY 60 30 12 February 02, 2024 4:51pm December 25, 2024 11:15am Multiple myeloma Multiple myeloma not having achieved remission Start with start of chemotherapy take 0.5 tablet by m outh once daily acyclovir (Zovirax) 400 mg tablet Take 0.5 tablets (200 mg) by mouth once daily. Active [id number] 200 actuat albuterol 0.09 mg/actuat metered dose inhaler (18 sources) beta2-Adrenergic Agonist Start: 07-09-2022 End: 12-06-2023 take 2 puff(s) by inhalation every four hours Ventolin HFA 90 mcg/actuation inhaler Inhale 2 puffs every 4 hours if needed. 07/09/2022 12/06/2023 Discontinued (Med List Cleanup) Start: 07-09-2022 take 2 puff(s) by in halation every four hours as needed for cough Albuterol Sulfate HFA 108 (90 Base) MCG/ACT Inhalation Aerosol Solution INHALE 2 PUFFS EVERY 4 HOURS NEEDED FOR COUGH AND WHEEZE. Quantity: 1 Refills: 1 Ordered: 09-Jul-2022 Thelma Frazier DO Start : 09-Jul-2022 Active amLODIPine 5 mg oral tablet (15 sources) Dihydropyridine Calcium Channel Renzo Start: 06-01-2021 End: 06-02-2021 take 1 tablet by mouth once daily Amlodipine 5 mg tablet Discontinued 5 mg PO DAILY June 01, 2021 1:00am June 02, 2021 3:00pm Ascorbate Calcium-Bioflavon oid (Vannessa-C With Bioflavonoids) 1,000-200 mg tablet (12 sources) Start: 06-01-2021 End: 06-02-2021 take 1 tablet by mouth once daily Ascorbate Calcium-Bioflavono id (Vannessa-C With Bioflavonoids) 1,000-200 mg tablet Discontinued 4 {tbl} PO DAILY June 01, 2021 1:00am June 02, 2021 3:00pm Start: 06-01-2021 End: 06-02-2021 Ascorbate Calcium-Bioflavono id (Vannessa-C With Bioflavonoids) 1,000-200 mg tablet Discontinued 4 TABLET PO DAILY June 01, 2021 12:00am June 02, 2021 2:00pm Ashwagandha Root Extract 300 mg capsule (9 sources) Start: 05-10-2023 End: 02-21-2024 Ashjanessadha Root Extract 300 mg capsule Discontinued NMA PO May 10, 2023 1:00am February 21, 2024 1:52pm To combat agitation from stero Start: 05-10-2023 End: 02-21-2024 Ashjanessadha Root Extract 300 mg capsule Discontinued NMA PO May 10, 2023 1:00am February 21, 2024 1:52pm azithromycin 250 mg oral tablet (8 sources) Macrolide Antimicrobial Start: 06-12-2024 End: 06-18-2024 azithromycin (Zithromax) 250 mg tablet Indications: Community acquired pneumonia, unspecified laterality Take 2 tablets (500 mg) by mouth once daily for 1 day, THEN 1 tablet (250 mg) once daily for 4 days. Take 2 tabs (500 mg) by mouth today, than 1 daily for 4 days.. 6 tablet 06/12/2024 06/18/2024 Discontinued (Med List Cleanup) Start: 07-09-2023 End: 07-09-2023 azithromycin (Zithromax) tab let 500 mg Start: 07-09-2023 End: 07-21-2023 take 2 tablets by mouth once daily, then take 1 tablet by mouth once daily azithromycin (Zithromax) 250 mg tablet Indications: Pneumonia due to COVID-19 virus Take 2 tablets (500 mg) by mouth once daily for 1 day, THEN 1 tablet (250 mg) once daily for 4 days. 6 tablet 0 07/09/2023 07/21/2023 Discontinued (Med List Cleanup) bisoprolol fumarate 10 mg / hydroCHLOROthiazide 6.25 mg oral tablet (15 sources) Thiazide Diuretic, beta-Adrenergic Renzo Start: 06-01-2021 End: 06-02-2021 Bisoprolol-Hydrochlorothiazi de 10-6.25 mg tablet Discontinued 2 {tbl} PO DAILY June 01, 2021 1:00am June 02, 2021 3:00pm Start: 06-01-2021 End: 06-02-2021 take 2 tablets by mouth once daily Bisoprolol-Hydrochlorothiazide Discontin ued 2 TABLET PO DAILY June 01, 2021 12:00am June 02, 2021 2:00pm bortezomib (2 sources) Proteasome Inhibitor End: 12-06-2023 bortezomib (VELCADE INJ) Inject as directed 1 (one) time per week. One injection weekly for three weeks, one week off. 12/06/2023 Discontinued (Med List Cleanup) bortezomib (VELC MONA INJ) Inject as directed 1 (one) time per week. One injection weekly for three weeks, one week off. Active fluticasone propionate 0.05 mg/actuat metered dose nasal spray (20 sources) Corticosteroid Start: 06-30-2021 End: 09-01-2021 take 1 spray(s) nasal route once daily Fluticasone Propionate Discontinued 2 SPRAY INTRANASAL DAILY June 30, 2021 12:00am September 01, 2021 9:28am administer into each nostril Start: 06-29-2021 End: 09-01-2021 Fluticasone Propionate 50 mc g/actuation spray,suspension Discontinued 2 NMA INTRANASAL DAILY June 30, 2021 1:00am September 01, 2021 10:28am administer into each nostril Start: 06-29-2021 End: 08-26-2022 take 2 spray(s) nasal route once daily fluticasone (Flonase) 50 mcg/actuation nasal spray Administer 2 sprays into each nostril 1 (one) time each day. 0 06/29/2021 08/26/2022 Discontinued (Therapy completed) folic acid 1 mg / vitamin b12 0.5 mg oral tablet (12 sources) Vitamin B12 Start: 01-19-2022 End: 02-21-2024 Vitamin X58-Xcxtz Acid 0.5-1 mg Tablet Discontinued 1 {tbl} PO DAILY January 19, 2022 12:00am February 21, 2024 1:53pm Start: 01-19-2022 take 1 tablet by lexii once daily Vitamin P11-Sqzrr Acid Active 1 TABLET PO DAILY January 18, 2022 11:00pm gemfibrozil 600 mg oral tablet (20 sources) Peroxisome Proliferator Receptor alpha Agonist Start: 06-18-2020 End: 06-16-2021 take 1 tablet by mouth once daily Gemfibrozil 600 mg tablet Discontinued 600 mg PO DAILY June 02, 2021 1:00am June 16, 2021 11:15am Start: 06-18-2020 take 1 tablet by lexii th twice daily 30 minutes before mealtime Gemfibrozil 600 MG Oral Tablet TAKE 1 TABLET TWICE DAILY 30 MINUTES BEFORE MEALS. Quantity: 60 Refills: 5 Ordered: 18-Jun-2020 Thelma Frazier DO Start : 18-Jun-2020 Active Glutathione (12 sources) Start: 06-16-2021 End: 07-14-2021 Glutathione powder Discontin ued 1 NMA PO TWICE A DAY June 16, 2021 1:00am July 14, 2021 11:57am Start: 06-16-2021 End: 07-14-2021 Glutathione Discontinued 1 E ACH PO TWICE A DAY June 16, 2021 12:00am July 14, 2021 10:57am GoutCure (12 sources) Start: 09-01-2021 End: 06-22-2022 take 500 mg by mouth once daily GoutCure Discontinued 500 mg PO DAILY 0 September 01, 2021 12:00am June 22, 2022 11:32am Start: 09-01-2021 End: 06-22-2022 take 500 mg by mouth once daily GoutCure Discontinued 500 mg PO DAILY September 01, 2021 12:00am June 22, 2022 11:32am Start: 09-01-2021 End: 06-22-2022 take 500 mg by mouth once daily GoutCure Discontinued 500 MG PO DAILY August 31, 2021 11:00pm June 22, 2022 10:32am Start: 09-01-2021 take 500 mg by mouth once daily GoutCure Active 500 MG PO DAILY August 31, 2021 11:00pm Graviola (12 sources) Start: 06-01-2021 End: 06-02-2021 Graviola Discontinued PO 0 J anuary 2021 1:00am June 02, 2021 3:00pm Start: 06-01-2021 End: 06-02-2021 Graviola Discontinued PO Colby uary 2021 1:00am June 02, 2021 3:00pm Start: 06-01-2021 End: 06-02-2021 Graviola Discontinued PO Colby uary 2021 12:00am June 02, 2021 2:00pm 12 hr guaiFENesin 600 mg extended release oral tablet (12 sources) Start: 09-01-2021 End: 06-22-2022 take 1 tablet by mouth once daily, then take 1 tablet by mouth every twelve hours Guaifenesin (Mucinex) 600 mg tablet extended release 12hr Discontinued 600 mg PO DAILY September 01, 2021 12:00am June 22, 2022 11:35am hydrALAZINE hydrochloride 10 mg oral tablet (2 sources) Arteriolar Vasodilator Start: 07-10-2019 take 1 tablet by mouth twice daily hydrALAZINE HCl - 10 MG Oral Tablet TAKE 1 TABLET BY MOUTH TWICE DAILY Quantity: 90 Refills: 2 Thelma Frazier DO Start : 10-Jul-2019 Active hydroCHLOROthiazide 25 mg / losartan potassium 100 mg oral tablet (15 sources) Thiazide Diuretic, Angiotensin 2 Receptor Renzo Start: 06-01-2021 End: 06-02-2021 Losartan-Hydrochl orothiazide 100-25 mg tablet Discontinued 1 {tbl} PO DAILY June 01, 2021 1:00am June 02, 2021 3:01pm Start: 06-01-2021 End: 06-02-2021 take 1 tablet by mouth once daily Losartan-Hydrochlorothiazide Discontinue d 1 TABLET PO DAILY June 01, 2021 12:00am June 02, 2021 2:01pm hydroCHLOROthiazide 12.5 mg / valsartan 320 mg oral tablet (18 sources) Thiazide Diuretic, Angiotensin 2 Receptor Renzo Start: 06-01-2021 End: 06-02-2021 take 1 tablet by mouth once daily Valsartan-Hydrochlorothiazide Discontinued 1 TABLET PO DAILY June 01, 2021 12:00am June 02, 2021 2:02pm Start: 08-08-2019 End: 06-02-2021 Valsartan-Hydrochlorothiazid e 320-12.5 mg tablet Discontinued 1 {tbl} PO DAILY June 01, 2021 1:00am June 02, 2021 3:02pm indomethacin 25 mg oral capsule (16 sources) Nonsteroidal Anti-inflammatory Drug Start: 08-24-2021 End: 06-22-2022 take 1 capsule by mouth three times daily at mealtime Indomethacin 25 mg capsule Discontinued 25 mg PO THREE TIMES A DAY August 25, 2021 12:00am June 22, 2022 11:35am administer with food or milk iohexol (OMNIPaque) 350 mg iodine/mL solution 69 mL (1 source) Start: 07-09-2023 End: 07-09-2023 iohexol (OMNIPaque) 350 mg iodine/mL solution 69 mL iohexol (OMNIPaque) 350 mg iodine/mL solution 70 mL (1 source) Start: 02-08-2025 End: 02-08-2025 70 mL, intravenous, Once in imaging, Starting on Tue02/08/25 at 1329, For 1 dose Joint Ease 2.0 capsule (9 sources) Start: 07-14-2021 End: 02-21-2024 take 2 capsules by mouth twice daily Joint Ease 2.0 capsule Discontinued 2 NMA PO TWICE A DAY 0 July 14, 2021 1:00am February 21, 2024 1:52pm Start: 07-14-2021 End: 02-21-2024 take 2 capsules by mouth twice daily Joint Ease 2.0 capsule Discontinued 2 NMA PO TWICE A DAY July 14, 2021 1:00am February 21, 2024 1:52pm Lactobacillus Combination No.4 (Probiotic) 3 billion cell capsule (12 sources) Start: 06-01-2021 End: 06-02-2021 take 3 capsules by mouth once daily Lactobacillus Combination No.4 (Probiotic) 3 billion cell capsule Discontinued 3000 NMA PO DAILY June 01, 2021 1:00am June 02, 2021 3:01pm administer with a meal Start: 06-01-2021 End: 06-02-2021 take 3 capsules by mouth once daily Lactobacillus Combination No.4 (Probiotic) 3 billion cell capsule Discontinued 3000 MMU CELLS PO DAILY June 01, 2021 12:00am June 02, 2021 2:01pm administer with a meal Lagevrio 200 MG Oral Capsule (2 sources) Start: 11-03-2021 End: 11-16-2021 take 4 capsules by mouth twice daily Lagevrio 200 MG Oral Capsule TAKE 4 CAPSULE Twice daily Quantity: 40 Refills: 0 Ordered: 03-Nov-2021 Thelma Frazier DO Start : 03-Nov-2021 End : 16-Nov-2021 Complete Start: 11-03-2021 take 4 capsules by m outh twice daily Lagevrio 200 MG Oral Capsule TAKE 4 CAPSULE Twice daily Quantity: 40 Refills: 0 Ordered: 03-Nov-2021 Thelma Frazier DO Start : 03-Nov-2021 Active Lidocaine (14 sources) Antiarrhythmic, Amide Local Anesthetic Start: 04-03-2025 End: 04-03-2025 lidocaine (Xylocaine) 20 mg/mL (2 %) injection 2 mL Start: 04-03-2025 End: 04-03-2025 2 mL, injection, Once PRN Pr ocedure, Starting on Tue04/03/25 at 1210, For 1 dose Start: 06-23-2021 End: 06-22-2022 Lidocaine (Aspercreme (Lidoc santos)) 4 % adhesive patch,medicated Discontinued 1 NMA TOPICAL TWICE A DAY as needed for Pain June 23, 2021 1:00am June 22, 2022 11:35am mecobalamin 1 mg sublingual tablet (12 sources) Start: 01-19-2022 End: 02-21-2024 Mecobalamin (Vitamin B12) 1, 000 mcg tablet,disintegrating Discontinued 1000 ug SL DAILY January 19, 2022 12:00am February 21, 2024 1:[address] tablet under tongue and allow to dissolve for at least30 secs before swallowing Start: 01-19-2022 Mecobalamin (V itamin B12) Active 1000 MCG SL DAILY January 18, 2022 11:[address]pm place tablet under tongue and allow to dissolve for at least30 secs before swallowing 24 hr metoprolol succinate 50 mg extended release oral tablet (1 source) beta-Adrenergic Renzo Start: 10-12-2019 take 1 tablet by mouth once daily Metoprolol Succinate ER 50 MG Oral Tablet Extended Release 24 Hour Take 1 tablet daily Quantity: 30 Refills: 5 Thelma Frazier DO Start : 12-Oct-2019 Active [place]-3 Fatty Acids 1,000 mg capsule (18 sources) Start: 06-02-2021 End: 02-21-2024 take 1 capsule by mouth once [place]-3 Fatty Acids 1,000 mg capsule Discontinued 1000 mg PO ONCE June 02, 2021 3:01pm February 21, 2024 1:53pm Start: 06-01-2021 End: 06-02-2021 take 1 capsule by mouth once daily [place]-3 Fatty Acids 1,000 mg capsule Discontinued 1000 mg PO DAILY June 01, 2021 1:00am June 02, 2021 3:03pm omeprazole 40 mg delayed release oral capsule (2 sources) Proton Pump Inhibitor Start: 09-03-2019 take 1 capsule by mouth once daily Omeprazole 40 MG Oral Capsule Delayed Release TAKE 1 CAPSULE Daily Quantity: 30 Refills: 2 Thelma Frazier DO Start : 03-Sep-2019 Active ondansetron 8 mg disintegrating oral tablet (20 sources) Serotonin-3 Receptor Antagonist Start: 06-03-2021 End: 06-21-2023 take 1 tablet by mouth every eight hours as needed for nausea and vomiting Ondansetron 8 mg tablet,disintegrat ing Discontinued 8 mg PO Q8H as needed for nausea and vomiting 30 June 03, 2021 1:00am June 21, 2023 12:09pm Multiple myeloma Multiple myeloma not having achieved remission Bwugylsjbljoj-Yf-Geux aminophen (Mucinex Fast-Max Skyler-Walton (Dm)) 5-10-325 mg capsule (11 sources) Start: 04-27-2022 End: 06-22-2022 Knnhpkwfbriri-Et-D cetaminophen (Mucinex Fast-Max Skyler-Walton (Dm)) 5-10-325 mg capsule Discontinued 1 NMA PO TWICE A DAY as needed for Cough April 27, 2022 1:00am June 22, 2022 11:36am Start: 04-27-2022 End: 06-22-2022 take 1 capsule by mouth twice daily Evmqwpxbeqwvo-Kn-Vnhylohbywaob (Mucinex Fast-Max Skyler-Walton (Dm)) 5-10-325 mg capsule Discontinued 1 CAP PO TWICE A DAY April 27, 2022 12:00am June 22, 2022 10:36am Start: 04-27-2022 take 1 capsule by mouth twice daily Qdjwcrhtjqdkn-Bs-Yxhpuspdysgqk (Mucinex Fast-Max Skyler-Walton (Dm)) 5-10-325 mg capsule Active 1 CAP PO TWICE A DAY April 27, 2022 12:00am potassium citrate 10 meq extended release oral tablet (12 sources) Start: 06-16-2021 End: 10-30-2024 take 1 tablet by mouth once daily Potassium Citrate 10 mEq (1,080 mg) tablet extended release Discontinued 40 meq PO DAILY June 16, 2021 1:00am October 30, 2024 11:17am 20 ml ropivacaine hydrochloride 5 mg/ml injection (2 sources) Amide Local Anesthetic Start: 04-03-2025 End: 04-03-2025 ropivacaine (Naropin) 5 mg/mL (0.5 %) injection 4 mL Start: 04-03-2025 End: 04-03-2025 4 mL, Once PRN Procedure, St [place]ting on Tue04/03/25 at 1210, For 1 dose Serotonin (9 sources) Start: 08-30-2023 End: 02-21-2024 serotonin Discontinued PO Ap ril 2023 12:00am February 21, 2024 1:53pm Sudanese Black Radish (12 sources) Start: 06-01-2021 End: 06-02-2021 [place]ese Black Radish Discont inued PO 0 June 01, 2021 1:00am June 02, 2021 3:01pm Start: 06-01-2021 End: 06-02-2021 [place] Black Radish Discont inued PO June 01, 2021 1:00am June 02, 2021 3:01pm Start: 06-01-2021 End: 06-02-2021 [place]ese Black Radish Discont inued PO June 01, 2021 12:00am June 02, 2021 2:01pm spironolactone 50 mg oral tablet (5 sources) Aldosterone Antagonist Start: 03-17-2020 take 1 tablet by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 ####[facility] [address] [place], [address] Basophils/100 WBC (Bld) 1.7 % High 0-1 [facility] Comment on above: Performed By: #### L 500.4050, L100.0100 ####[facility] [address] [place], [address] Eosinophils/100 WBC (Bld) 2.6 % Normal 0-5 [facility] Comment on above: Performed By: #### L 500.4050, L100.0100 ####[facility] [address] [place], [address] Erythrocyte distribution width (RBC) [Ratio] 15.3 % High 11.6-14.6 [facility] Comment on above: Performed By: #### L 500.4050, L100.0100 ####[facility] [address] [place], [address] Hematocrit (Bld) [Volume fraction] 33.1 % Low 37-47 [facility] Comment on above: Performed By: #### L 500.4050, L100.0100 ####[facility] [address] [place], [address] Hemoglobin (Bld) [Mass/Vol] 10.9 g/dL Low 12.0-15.0 [facility] Comment on above: Performed By: #### L 500.4050, L100.0100 ####[facility] [address] [place], [address] IG% 0.000 Normal 0.0-0.9 [facility] Comment on above: Result Comment: IG% - Immature Granulocytes (promyelocytes, myelocytes andmetamyelocytes) > 1% indicates that a LEFT SHIFT is Present. Performed By: #### L 500.4050, L100.0100 ####[facility] [address] [place], [address] Lymphocytes/100 WBC (Bld) 40.8 % Normal 19-41 [facility] Comment on above: Performed By: #### L 500.4050, L100.0100 ####[facility] [address] [place], [address] MCH (RBC) [Entitic mass] 29.8 pg Normal 27.0-32.0 [facility] Comment on above: Performed By: #### L 500.4050, L100.0100 ####[facility] [address] [place], [address] MCHC (RBC) [Mass/Vol] 32.9 g/dL Normal 32-36 [facility] Comment on above: Performed By: #### L 500.4050, L100.0100 ####[facility] [address] [place], [address] MCV (RBC) [Entitic vol] 90.4 fL Normal 81-99 [facility] Comment on above: Performed By: #### L 500.4050, L100.0100 ####[facility] [address] [place], [address] Monocytes/100 WBC (Bld) 12.8 % High 0-10 [facility] Comment on above: Performed By: #### L 500.4050, L100.0100 ####[facility] [address] [place], [address] Neutrophils/100 WBC (Bld) 42.1 % Low 47-70 [facility] Comment on above: Performed By: #### L 500.4050, L100.0100 ####[facility] [address] [place], [address] Nucleated RBC (Bld) [#/Vol] 0 10*3/uL Normal 0-5 [facility] Comment on above: Performed By: #### L 500.4050, L100.0100 ####[facility] [address] [place], [address] Platelet mean volume (Bld) [Entitic vol] 9.8 fL Normal 6.2-12.0 [facility] Comment on above: Performed By: #### L 500.4050, L100.0100 ####[facility] [address] [place], [address] Platelets (Bld) [#/Vol] 182 10*3/uL Normal 150-450 [facility] Comment on above: Performed By: #### L 500.4050, L100.0100 ####[facility] [address] [place], [address] RBC (Bld) [#/Vol] 3.66 10*6/uL Low 4.2-5.4 [facility] Comment on above: Performed By: #### L 500.4050, L100.0100 ####[facility] [address] [place], [address] RDW SD 50.2 fl High 35.1-43.9 [facility] Comment on above: Performed By: #### L 500.4050, L100.0100 ####[facility] [address] [place], [address] WBC (Bld) [#/Vol] 3.4 10*3/uL Low 4.4-11.0 [facility] Comment on above: Performed By: #### L 500.4050, L100.0100 ####[facility] [address] [place], [address] Comprehensive Metabolic [facility] 03-26-2025 Albumin [Mass/Vol] 4.0 g/dL Normal 3.4-4.8 [facility] Comment on above: Performed By: #### L 500.4050, L100.0100 ####[facility] [address] [place], [address] Albumin/Globulin [Mass ratio] 1.2 {ratio} Normal 0.9-2.4 [facility] Comment on above: Performed By: #### L 500.4050, L100.0100 ####[facility] [address] [place], [address] ALK PHOS 110 U/L High 35-104 [facility] Comment on above: Performed By: #### L 500.4050, L100.0100 ####[facility] [address] [place], [address] ALT [Catalytic activity/Vol] 18 U/L Normal <=34 [facility] Comment on above: Performed By: #### L 500.4050, L100.0100 ####[facility] [address] [place], [address] AST [Catalytic activity/Vol] 19 U/L Normal <=31 [facility] Comment on above: Performed By: #### L 500.4050, L100.0100 ####[facility] [address] [place], [address] Bilirubin [Mass/Vol] 0.25 mg/dL Normal 0.00-1.30 [facility] Comment on above: Performed By: #### L 500.4050, L100.0100 ####[facility] [address] [place], [address] BUN/CRE 22.0 RATIO High 10-20 [facility] Comment on above: Performed By: #### L 500.4050, L100.0100 ####[facility] [address] [place], [address] Calcium [Mass/Vol] 9.4 mg/dL Normal 7.6-11.0 [facility] Comment on above: Performed By: #### L 500.4050, L100.0100 ####[facility] [address] [place], [address] Chloride [Moles/Vol] 104 mmol/L Normal 98-108 [facility] Comment on above: Performed By: #### L 500.4050, L100.0100 ####[facility] [address] [place], [address] CO2 [Moles/Vol] 25.9 mmol/L Normal 21.0-32.0 [facility] Comment on above: Performed By: #### L 500.4050, L100.0100 ####[facility] [address] [place], [address] Creatinine [Mass/Vol] 0.71 mg/dL Normal 0.70-1.20 [facility] Comment on above: Performed By: #### L 500.4050, L100.0100 ####[facility] [address] [place], [address] ECRCL 52.37 ml/min Normal 50-250 [facility] Comment on above: Performed By: #### L 500.4050, L100.0100 ####[facility] [address] [place], [address] GAP 9 Normal 5-15 [facility] Comment on above: Performed By: #### L 500.4050, L100.0100 ####[facility] [address] [place], [address] GFR/1.73 sq M.predicted among non-blacks MDRD (S/P/Bld) [Vol rate/Area] 89 mL/min/{1.73_m2} Normal >60 [facility] Comment on above: Result Comment: mL/m in/1.73m2 CKD-EPI Creatinine Equation (2020) Performed By: #### L 500.4050, L100.0100 ####[facility] [address] [place], [address] Globulin (S) [Mass/Vol] 3.3 g/dL Normal 2.2-4.2 [facility] Comment on above: Performed By: #### L 500.4050, L100.0100 ####[facility] [address] [place], [address] Glucose [Mass/Vol] 103 mg/dL High 70-99 [facility] Comment on above: Performed By: #### L 500.4050, L100.0100 ####[facility] [address] [place], [address] Potassium [Moles/Vol] 3.5 mmol/L Normal 3.3-5.1 [facility] Comment on above: Performed By: #### L 500.4050, L100.0100 ####[facility] [address] [place], [address] Sodium [Moles/Vol] 139 mmol/L Normal 133-145 [facility] Comment on above: Performed By: #### L 500.4050, L100.0100 ####[facility] [address] [place], [address] T PROT 7.3 g/dL Normal 5.9-8.4 [facility] Comment on above: Performed By: #### L 500.4050, L100.0100 ####[facility] [address] [place], [address] Urea nitrogen [Mass/Vol] 16 mg/dL Normal 4-19 [facility] Comment on above: Performed By: #### L 500.4050, L100.0100 ####[facility] [address] [place], [address] Oncology Visit Reporton 11-0 Oncology Visit Report Normal [facility] GAYLE + Protein Elect, Serumon 03-21-2025 Albumin [Mass/Vol] 3.3 g/dL Normal 2.9-4.4 [facility] Comment on above: Order Comment: N Performed By: #### L 3130.0010, L3100.3425 ####[facility] [address] [place], [address] Albumin/Globulin [Mass ratio] 1.0 {ratio} Normal 0.7-1.7 [facility] Comment on above: Order Comment: N Performed By: #### L 3130.0010, L3100.3425 ####[facility] [address] [place], [address] IIPOO-7-PHHG 0.3 g/dL Normal 0.0-0.4 [facility] Comment on above: Order Comment: N Performed By: #### L 3130.0010, L3100.3425 ####[facility] [address] [place], [address] PAERV-6-FRSQ 1.0 g/dL Normal 0.4-1.0 [facility] Comment on above: Order Comment: N Performed By: #### L 3130.0010, L3100.3425 ####[facility] [address] [place], [address] BETA GLOBULIN 1.1 g/dL Normal 0.7-1.3 [facility] Comment on above: Order Comment: N Performed By: #### L 3130.0010, L3100.3425 ####[facility] [address] [place], [address] GAMMA GLOBULIN 1.0 g/dL Normal 0.4-1.8 [facility] Comment on above: Order Comment: N Performed By: #### L 3130.0010, L3100.3425 ####[facility] [address] [place], [address] Globulin (S) [Mass/Vol] 3.5 g/dL Normal 2.2-3.9 [facility] Comment on above: Order Comment: N Performed By: #### L 3130.0010, L3100.3425 ####[facility] [address] [place], [address] GAYLE RESULT,S Comment Abnormal . 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 PLEASE NOTE: Samples from patients receiving DARZALEX(R)(daratumumab) or SARCLISA(R)(isatuximab-irfc) treatmentcan appear as an IgG kappa and mask a complete response(CR). If this patient is receiving these therapies, thisIFE assay interference can be removed by ordering testnumber [id number], Daratumumab-Specific,Serum or [id number]-Coqbjtxiwrcqdk, Isatuximab-Specific,Serum and submitting a new sample for testing or bycalling the lab to add this test to the current sample. Performed By: #### L 3130.0010, L3100.3425 ####[facility] [address] [place], [address] IMMUNOGLOB A QN 34 mg/dL Low 64-422 [facility] Comment on above: Order Comment: N Result Comment: Resu lt confirmed on concentration. Performed By: #### L 3130.0010, L3100.3425 ####[facility] [address] [place], [address] IMMUNOGLOB G QN 1179 mg/dL Normal 586-1602 [facility] Comment on above: Order Comment: N Performed By: #### L 3130.0010, L3100.3425 ####[facility] [address] [place], [address] IMMUNOGLOB M QN 10 mg/dL Low 26-217 [facility] Comment on above: Order Comment: N Result Comment: Resu lt confirmed on concentration. Performed By: #### L 3130.0010, L3100.3425 ####[facility] [address] [place], [address] M-Adolfo 0.7 g/dL Abnormal Not Observed [facility] Comment on above: Order Comment: N Performed By: #### L 3130.0010, L3100.3425 ####[facility] [address] [place], [place], [address] NOTE: Comment Normal . [facility] Comment on above: Order Comment: N Result Comment: Prot ein electrophoresis scan will follow via computer,mail, or massage operator delivery. Performed By: #### L 3130.0010, L3100.3425 ####[facility] [address] [place], [place], [address] Protein [Mass/Vol] 6.8 g/dL Normal 6.0-8.5 [facility] Comment on above: Order Comment: N Performed By: #### L 3130.0010, L3100.3425 ####[facility] [address] [place], [place], [address] [place] Lambda Light Chainson 03-21-2025 FR KAPPA LT CHN 10.8 mg/L Normal 3.3-19.4 [facility] Comment on above: Performed By: #### L 3130.0010, L3100.3425 ####[facility] [address] [place], [place], [address] FR LAMBDA LT CH 9.0 mg/L Normal 5.7-26.3 [facility] Comment on above: Performed By: #### L 3130.0010, L3100.3425 ####[facility] [address] [place], [place], [address] KAPPA/LAMBDA % 1.20 Normal 0.26-1.65 [facility] Comment on above: Result Comment: Perf ormed at: - [facility] [address] [id number] Director: Chris Amos PhD, Phone: [phone] Performed By: #### L 3130.0010, L3100.3425 ####[facility] [address] [place], [address] Brain W/WO Contraston 2024 Brain W/WO Contrast Normal [facility] CBC W/Diff, Automatedon 02-21 Absolute Lymph 1.33 X10 3/uL Normal 0.83-4.51 [facility] Comment on above: Performed By: #### L 500.4050, L100.0100 ####[facility] [address] [place], [address] Absolute Neut 0.8 X10 3/uL Low 2.0-7.7 [facility] Comment on above: Performed By: #### L 500.4050, L100.0100 ####[facility] [address] [place], [address] Basophils/100 WBC (Bld) 1.3 % High 0-1 [facility] Comment on above: Performed By: #### L 500.4050, L100.0100 ####[facility] [address] [place], [address] Eosinophils/100 WBC (Bld) 6.6 % High 0-5 [facility] Comment on above: Performed By: #### L 500.4050, L100.0100 ####[facility] [address] [place], [address] Erythrocyte distribution width (RBC) [Ratio] 15.3 % High 11.6-14.6 [facility] Comment on above: Performed By: #### L 500.4050, L100.0100 ####[facility] [address] [place], [address] Hematocrit (Bld) [Volume fraction] 31.1 % Low 37-47 [facility] Comment on above: Performed By: #### L 500.4050, L100.0100 ####[facility] [address] [place], [address] Hemoglobin (Bld) [Mass/Vol] 10.4 g/dL Low 12.0-15.0 [facility] Comment on above: Performed By: #### L 500.4050, L100.0100 ####[facility] [address] [place], [address] IG% 0.000 Normal 0.0-0.9 [facility] Comment on above: Result Comment: IG% - Immature Granulocytes (promyelocytes, myelocytes andmetamyelocytes) > 1% indicates that a LEFT SHIFT is Present. Performed By: #### L 500.4050, L100.0100 ####[facility] [address] [place], [address] Lymphocytes/100 WBC (Bld) 44.0 % High 19-41 [facility] Comment on above: Performed By: #### L 500.4050, L100.0100 ####[facility] [address] [place], [address] MCH (RBC) [Entitic mass] 30.3 pg Normal 27.0-32.0 [facility] Comment on above: Performed By: #### L 500.4050, L100.0100 ####[facility] [address] [place], [address] MCHC (RBC) [Mass/Vol] 33.4 g/dL Normal 32-36 [facility] Comment on above: Performed By: #### L 500.4050, L100.0100 ####[facility] [address] [place], [address] MCV (RBC) [Entitic vol] 90.7 fL Normal 81-99 [facility] Comment on above: Performed By: #### L 500.4050, L100.0100 ####[facility] [address] [place], [address] Monocytes/100 WBC (Bld) 21.5 % High 0-10 [facility] Comment on above: Performed By: #### L 500.4050, L100.0100 ####[facility] [address] [place], [address] Neutrophils/100 WBC (Bld) 26.6 % Low 47-70 [facility] Comment on above: Performed By: #### L 500.4050, L100.0100 ####[facility] [address] [place], [address] Nucleated RBC (Bld) [#/Vol] 0 10*3/uL Normal 0-5 [facility] Comment on above: Performed By: #### L 500.4050, L100.0100 ####[facility] [address] [place], [address] Platelet mean volume (Bld) [Entitic vol] 9.7 fL Normal 6.2-12.0 [facility] Comment on above: Performed By: #### L 500.4050, L100.0100 ####[facility] [address] [place], [address] Platelets (Bld) [#/Vol] 118 10*3/uL Low 150-450 [facility] Comment on above: Performed By: #### L 500.4050, L100.0100 ####[facility] [address] [place], [address] RBC (Bld) [#/Vol] 3.43 10*6/uL Low 4.2-5.4 [facility] Comment on above: Performed By: #### L 500.4050, L100.0100 ####[facility] [address] [place], [address] RDW SD 50.5 fl High 35.1-43.9 [facility] Comment on above: Performed By: #### L 500.4050, L100.0100 ####[facility] [address] [place], [address] WBC (Bld) [#/Vol] 3.0 10*3/uL Low 4.4-11.0 [facility] Comment on above: Performed By: #### L 500.4050, L100.0100 ####[facility] [address] [place], [address] Comprehensive Metabolic Prof ilon 03-19-2025 Albumin [Mass/Vol] 4.0 g/dL Normal 3.4-4.8 [facility] Comment on above: Performed By: #### L 500.4050, L100.0100 ####[facility] [address] [place], [address] Albumin/Globulin [Mass ratio] 1.2 {ratio} Normal 0.9-2.4 [facility] Comment on above: Performed By: #### L 500.4050, L100.0100 ####[facility] [address] [place], [address] ALK PHOS 102 U/L Normal 35-104 [facility] Comment on above: Performed By: #### L 500.4050, L100.0100 ####[facility] [address] [place], [address] ALT [Catalytic activity/Vol] 20 U/L Normal <=34 [facility] Comment on above: Performed By: #### L 500.4050, L100.0100 ####[facility] [address] [place], [address] AST [Catalytic activity/Vol] 21 U/L Normal <=31 [facility] Comment on above: Performed By: #### L 500.4050, L100.0100 ####[facility] [address] [place], [address] Bilirubin [Mass/Vol] 0.33 mg/dL Normal 0.00-1.30 [facility] Comment on above: Performed By: #### L 500.4050, L100.0100 ####[facility] [address] [place], [address] BUN/CRE 24.2 RATIO High 10-20 [facility] Comment on above: Performed By: #### L 500.4050, L100.0100 ####[facility] [address] [place], [address] Calcium [Mass/Vol] 9.4 mg/dL Normal 7.6-11.0 [facility] Comment on above: Performed By: #### L 500.4050, L100.0100 ####[facility] [address] [place], [address] Chloride [Moles/Vol] 104 mmol/L Normal 98-108 [facility] Comment on above: Performed By: #### L 500.4050, L100.0100 ####[facility] [address] [place], [address] CO2 [Moles/Vol] 25.4 mmol/L Normal 21.0-32.0 [facility] Comment on above: Performed By: #### L 500.4050, L100.0100 ####[facility] [address] [place], [address] Creatinine [Mass/Vol] 0.64 mg/dL Low 0.70-1.20 [facility] Comment on above: Performed By: #### L 500.4050, L100.0100 ####[facility] [address] [place], [address] ECRCL 51.83 ml/min Normal 50-250 [facility] Comment on above: Performed By: #### L 500.4050, L100.0100 ####[facility] [address] [place], [address] GAP 10 Normal 5-15 [facility] Comment on above: Performed By: #### L 500.4050, L100.0100 ####[facility] [address] [place], [address] GFR/1.73 sq M.predicted among non-blacks MDRD (S/P/Bld) [Vol rate/Area] 92 mL/min/{1.73_m2} Normal >60 [facility] Comment on above: Result Comment: mL/m in/1.73m2 CKD-EPI Creatinine Equation (2020) Performed By: #### L 500.4050, L100.0100 ####[facility] [address] [place], [address] Globulin (S) [Mass/Vol] 3.3 g/dL Normal 2.2-4.2 [facility] Comment on above: Performed By: #### L 500.4050, L100.0100 ####[facility] [address] [place], [address] Glucose [Mass/Vol] 112 mg/dL High 70-99 [facility] Comment on above: Performed By: #### L 500.4050, L100.0100 ####[facility] [address] [place], [address] Potassium [Moles/Vol] 3.7 mmol/L Normal 3.3-5.1 [facility] Comment on above: Performed By: #### L 500.4050, L100.0100 ####[facility] [address] [place], [address] Sodium [Moles/Vol] 139 mmol/L Normal 133-145 [facility] Comment on above: Performed By: #### L 500.4050, L100.0100 ####[facility] [address] [place], [address] T PROT 7.4 g/dL Normal 5.9-8.4 [facility] Comment on above: Performed By: #### L 500.4050, L100.0100 ####[facility] [address] [place], [address] Urea nitrogen [Mass/Vol] 16 mg/dL Normal 4-19 [facility] Comment on above: Performed By: #### L 500.4050, L100.0100 ####[facility] [address] [place], [address] Oncology Visit Reporton 02-21 Oncology Visit Report Normal [facility] Spine Cervical W/WO Contrast on 03-19-2025 Spine Cervical W/WO Contrast Normal [facility] 12 Lead EKGon 03-16-2025 12 Lead EKG Normal [facility] Basic Metabolic Profile (BMP )on 03-16-2025 BUN/CRE 18.8 RATIO Normal 03-11 [facility] Comment on above: Performed By: #### L 100.0100, L500.2500 ####[facility] [address] [place], [address] Calcium [Mass/Vol] 9.4 mg/dL Normal 7.6-11.0 [facility] Comment on above: Performed By: #### L 100.0100, L500.2500 ####[facility] [address] [place], [address] Chloride [Moles/Vol] 103 mmol/L Normal 98-108 [facility] Comment on above: Performed By: #### L 100.0100, L500.2500 ####[facility] [address] [place], [address] CO2 [Moles/Vol] 22.2 mmol/L Normal 21.0-32.0 [facility] Comment on above: Performed By: #### L 100.0100, L500.2500 ####[facility] [address] [place], [address] Creatinine [Mass/Vol] 0.80 mg/dL Normal 0.70-1.20 [facility] Comment on above: Performed By: #### L 100.0100, L500.2500 ####[facility] [address] [place], [address] ECRCL 52.12 ml/min Normal 50-250 [facility] Comment on above: Performed By: #### L 100.0100, L500.2500 ####[facility] [address] [place], [address] GAP 12 Normal 5-15 [facility] Comment on above: Performed By: #### L 100.0100, L500.2500 ####[facility] [address] [place], [address] GFR/1.73 sq M.predicted among non-blacks MDRD (S/P/Bld) [Vol rate/Area] 77 mL/min/{1.73_m2} Normal >60 [facility] Comment on above: Result Comment: mL/m in/1.73m2 CKD-EPI Creatinine Equation (2020) Performed By: #### L 100.0100, L500.2500 ####[facility] [address] [place], [address] Glucose [Mass/Vol] 94 mg/dL Normal 70-99 [facility] Comment on above: Performed By: #### L 100.0100, L500.2500 ####[facility] [address] [place], [address] Potassium [Moles/Vol] 5.7 mmol/L High 3.3-5.1 [facility] Comment on above: Result Comment: Hemo lysis present, Results??could be affected.?? Performed By: #### L 100.0100, L500.2500 ####[facility] [address] [place], [address] Sodium [Moles/Vol] 138 mmol/L Normal 133-145 [facility] Comment on above: Performed By: #### L 100.0100, L500.2500 ####[facility] [address] [place], [address] Urea nitrogen [Mass/Vol] 15 mg/dL Normal 4-19 [facility] Comment on above: Performed By: #### L 100.0100, L500.2500 ####[facility] [address] [place], [address] CBC W/Diff, Automatedon 10-2 Absolute Lymph 1.44 X10 3/uL Normal 0.83-4.51 [facility] Comment on above: Performed By: #### L 100.0100, L500.2500 ####[facility] [address] [place], [address] Absolute Neut 1.8 X10 3/uL Low 2.0-7.7 [facility] Comment on above: Performed By: #### L 100.0100, L500.2500 ####[facility] [address] [place], [address] Basophils/100 WBC (Bld) 0.5 % Normal 0-1 [facility] Comment on above: Performed By: #### L 100.0100, L500.2500 ####[facility] [address] [place], [address] Eosinophils/100 WBC (Bld) 5.2 % High 0-5 [facility] Comment on above: Performed By: #### L 100.0100, L500.2500 ####[facility] [address] [place], [address] Erythrocyte distribution width (RBC) [Ratio] 15.8 % High 11.6-14.6 [facility] Comment on above: Performed By: #### L 100.0100, L500.2500 ####[facility] [address] [place], [address] Hematocrit (Bld) [Volume fraction] 32.8 % Low 37-47 [facility] Comment on above: Performed By: #### L 100.0100, L500.2500 ####[facility] [address] [place], [address] Hemoglobin (Bld) [Mass/Vol] 10.8 g/dL Low 12.0-15.0 [facility] Comment on above: Performed By: #### L 100.0100, L500.2500 ####[facility] [address] [place], [address] IG% 0.000 Normal 0.0-0.9 [facility] Comment on above: Result Comment: IG% - Immature Granulocytes (promyelocytes, myelocytes andmetamyelocytes) > 1% indicates that a LEFT SHIFT is Present. Performed By: #### L 100.0100, L500.2500 ####[facility] [address] [place], [address] Lymphocytes/100 WBC (Bld) 35.8 % Normal 19-41 [facility] Comment on above: Performed By: #### L 100.0100, L500.2500 ####[facility] [address] [place], [address] MCH (RBC) [Entitic mass] 29.8 pg Normal 27.0-32.0 [facility] Comment on above: Performed By: #### L 100.0100, L500.2500 ####[facility] [address] [place], [address] MCHC (RBC) [Mass/Vol] 32.9 g/dL Normal 32-36 [facility] Comment on above: Performed By: #### L 100.0100, L500.2500 ####[facility] [address] [place], [address] MCV (RBC) [Entitic vol] 90.6 fL Normal 81-99 [facility] Comment on above: Performed By: #### L 100.0100, L500.2500 ####[facility] [address] [place], [address] Monocytes/100 WBC (Bld) 12.9 % High 0-10 [facility] Comment on above: Performed By: #### L 100.0100, L500.2500 ####[facility] [address] [place], [address] Neutrophils/100 WBC (Bld) 45.6 % Low 47-70 [facility] Comment on above: Performed By: #### L 100.0100, L500.2500 ####[facility] [address] [place], [address] Nucleated RBC (Bld) [#/Vol] 0 10*3/uL Normal 0-5 [facility] Comment on above: Performed By: #### L 100.0100, L500.2500 ####[facility] [address] [place], [address] Platelet mean volume (Bld) [Entitic vol] 10.9 fL Normal 6.2-12.0 [facility] Comment on above: Performed By: #### L 100.0100, L500.2500 ####[facility] [address] [place], [address] Platelets (Bld) [#/Vol] 116 10*3/uL Low 150-450 [facility] Comment on above: Performed By: #### L 100.0100, L500.2500 ####[facility] [address] [place], [address] RBC (Bld) [#/Vol] 3.62 10*6/uL Low 4.2-5.4 [facility] Comment on above: Performed By: #### L 100.0100, L500.2500 ####[facility] [address] [place], [address] RDW SD 52.4 fl High 35.1-43.9 [facility] Comment on above: Performed By: #### L 100.0100, L500.2500 ####[facility] [address] [place], [address] WBC (Bld) [#/Vol] 4.0 10*3/uL Low 4.4-11.0 [facility] Comment on above: Performed By: #### L 100.0100, L500.2500 ####[facility] [address] [place], [address] CTA Head AND Neck W/ Contras ton 03-16-2025 CTA Head AND Neck W/ Contrast Normal [facility] Emergency Department Summary on 03-16-2025 Emergency Department Summary Normal [facility] GAYLE + Protein Elect, Serumon 02-21-2025 Albumin [Mass/Vol] 3.5 g/dL Normal 2.9-4.4 [facility] Comment on above: Order Comment: N Performed By: #### L 3130.0010, L3100.3425 ####[facility] [address] [place], [address] Albumin/Globulin [Mass ratio] 1.1 {ratio} Normal 0.7-1.7 [facility] Comment on above: Order Comment: N Performed By: #### L 3130.0010, L3100.3425 ####[facility] [address] [place], [address] QTHDE-0-GTSL 0.2 g/dL Normal 0.0-0.4 [facility] Comment on above: Order Comment: N Performed By: #### L 3130.0010, L3100.3425 ####[facility] [address] [place], [address] ZHTMC-2-GZZI 0.9 g/dL Normal 0.4-1.0 [facility] Comment on above: Order Comment: N Performed By: #### L 3130.0010, L3100.3425 ####[facility] [address] [place], [address] BETA GLOBULIN 1.0 g/dL Normal 0.7-1.3 [facility] Comment on above: Order Comment: N Performed By: #### L 3130.0010, L3100.3425 ####[facility] [address] [place], [address] GAMMA GLOBULIN 1.0 g/dL Normal 0.4-1.8 [facility] Comment on above: Order Comment: N Performed By: #### L 3130.0010, L3100.3425 ####[facility] [address] [place], [address] Globulin (S)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 lymphocyte count a s percentage of total leukocytesOrdered By: Yusuf Leyva on 01-22-2025 Lymphocytes/100 WBC Auto (Unsp spec) 25.8 % 19-41 [facility] BUN/creatinine ratioOrdered By: [facility] on 01-22-2025 Urea nitrogen/Creatinine [Mass ratio] 27.7 mg/mg High 10-20 [facility] Basophil percentageOrdered B y: Yusuf Leyva on 01-22-2025 Basophils/100 WBC (Bld) 0.6 % 0-1 [facility] Bilirubin, totalOrdered By: Yusuf Leyva on 01-22-2025 Bilirubin [Mass/Vol] 0.41 mg/dL 0.00-1.30 [facility] CBC W/Diff, Automatedon Absolute Lymph 0.90 X10 3/uL Normal 0.83-4.51 [facility] Comment on above: Performed By: #### L 100.0100, L500.4050 ####[facility] [address] [place], [address] Absolute Neut 2.4 X10 3/uL Normal 2.0-7.7 [facility] Comment on above: Performed By: #### L 100.0100, L500.4050 ####[facility] [address] [place], [address] Basophils/100 WBC (Bld) 0.6 % Normal 0-1 [facility] Comment on above: Performed By: #### L 100.0100, L500.4050 ####[facility] [address] [place], [address] Eosinophils/100 WBC (Bld) 1.1 % Normal 0-5 [facility] Comment on above: Performed By: #### L 100.0100, L500.4050 ####[facility] [address] [place], [address] Erythrocyte distribution width (RBC) [Ratio] 15.9 % High 11.6-14.6 [facility] Comment on above: Performed By: #### L 100.0100, L500.4050 ####[facility] [address] [place], [address] Hematocrit (Bld) [Volume fraction] 37.1 % Normal 37-47 [facility] Comment on above: Performed By: #### L 100.0100, L500.4050 ####[facility] [address] [place], [address] Hemoglobin (Bld) [Mass/Vol] 12.3 g/dL Normal 12.0-15.0 [facility] Comment on above: Performed By: #### L 100.0100, L500.4050 ####[facility] [address] [place], [address] IG% 1.100 High 0.0-0.9 [facility] Comment on above: Result Comment: IG% - Immature Granulocytes (promyelocytes, myelocytes andmetamyelocytes) > 1% indicates that a LEFT SHIFT is Present. Performed By: #### L 100.0100, L500.4050 ####[facility] [address] [place], [address] Lymphocytes/100 WBC (Bld) 25.8 % Normal 19-41 [facility] Comment on above: Performed By: #### L 100.0100, L500.4050 ####[facility] [address] [place], [address] MCH (RBC) [Entitic mass] 29.9 pg Normal 27.0-32.0 [facility] Comment on above: Performed By: #### L 100.0100, L500.4050 ####[facility] [address] [place], [address] MCHC (RBC) [Mass/Vol] 33.2 g/dL Normal 32-36 [facility] Comment on above: Performed By: #### L 100.0100, L500.4050 ####[facility] [address] [place], [address] MCV (RBC) [Entitic vol] 90.0 fL Normal 81-99 [facility] Comment on above: Performed By: #### L 100.0100, L500.4050 ####[facility] [address] [place], [address] Monocytes/100 WBC (Bld) 2.6 % Normal 0-10 [facility] Comment on above: Performed By: #### L 100.0100, L500.4050 ####[facility] [address] [place], [address] Neutrophils/100 WBC (Bld) 68.8 % Normal 47-70 [facility] Comment on above: Performed By: #### L 100.0100, L500.4050 ####[facility] [address] [place], [address] Nucleated RBC (Bld) [#/Vol] 0 10*3/uL Normal 0-5 [facility] Comment on above: Performed By: #### L 100.0100, L500.4050 ####[facility] [address] [place], [address] Platelet mean volume (Bld) [Entitic vol] 9.5 fL Normal 6.2-12.0 [facility] Comment on above: Performed By: #### L 100.0100, L500.4050 ####[facility] [address] [place], [address] Platelets (Bld) [#/Vol] 201 10*3/uL Normal 150-450 [facility] Comment on above: Performed By: #### L 100.0100, L500.4050 ####[facility] [address] [place], [address] RBC (Bld) [#/Vol] 4.12 10*6/uL Low 4.2-5.4 [facility] Comment on above: Performed By: #### L 100.0100, L500.4050 ####[facility] [address] [place], [address] RDW SD 52.5 fl High 35.1-43.9 [facility] Comment on above: Performed By: #### L 100.0100, L500.4050 ####[facility] [address] [place], [address] WBC (Bld) [#/Vol] 3.5 10*3/uL Low 4.4-11.0 [facility] Comment on above: Performed By: #### L 100.0100, L500.4050 ####[facility] [address] [place], [address] Carbon dioxide, total [Moles /volume] in Central venous bloodOrdered By: Yusuf Leyva on 01-22-2025 CO2 [Moles/Vol] 22.2 mmol/L 21.0-32.0 [facility] Chloride assayOrdered By: Frederick Leyva on 01-22-2025 Chloride [Moles/Vol] 100 mmol/L 98-108 [facility] Comprehensive Metabolic Prof ilon 01-22-2025 Albumin [Mass/Vol] 4.8 g/dL Normal 3.4-4.8 [facility] Comment on above: Performed By: #### L 100.0100, L500.4050 ####[facility] [address] [place], [address] Albumin/Globulin [Mass ratio] 1.3 {ratio} Normal 0.9-2.4 [facility] Comment on above: Performed By: #### L 100.0100, L500.4050 ####[facility] [address] [place], [address] ALK PHOS 150 U/L High 35-104 [facility] Comment on above: Performed By: #### L 100.0100, L500.4050 ####[facility] [address] [place], [address] ALT [Catalytic activity/Vol] 22 U/L Normal <=34 [facility] Comment on above: Performed By: #### L 100.0100, L500.4050 ####[facility] [address] [place], [address] AST [Catalytic activity/Vol] 24 U/L Normal <=31 [facility] Comment on above: Performed By: #### L 100.0100, L500.4050 ####[facility] [address] [place], [address] Bilirubin [Mass/Vol] 0.41 mg/dL Normal 0.00-1.30 [facility] Comment on above: Performed By: #### L 100.0100, L500.4050 ####[facility] [address] [place], [address] BUN/CRE 27.7 RATIO High 10-20 [facility] Comment on above: Performed By: #### L 100.0100, L500.4050 ####[facility] [address] [place], [address] Calcium [Mass/Vol] 9.9 mg/dL Normal 7.6-11.0 [facility] Comment on above: Performed By: #### L 100.0100, L500.4050 ####[facility] [address] [place], [address] Chloride [Moles/Vol] 100 mmol/L Normal 98-108 [facility] Comment on above: Performed By: #### L 100.0100, L500.4050 ####[facility] [address] [place], [address] CO2 [Moles/Vol] 22.2 mmol/L Normal 21.0-32.0 [facility] Comment on above: Performed By: #### L 100.0100, L500.4050 ####[facility] [address] [place], [address] Creatinine [Mass/Vol] 0.85 mg/dL Normal 0.70-1.20 [facility] Comment on above: Performed By: #### L 100.0100, L500.4050 ####[facility] [address] [place], [address] ECRCL 49.87 ml/min Low 50-250 [facility] Comment on above: Performed By: #### L 100.0100, L500.4050 ####[facility] [address] [place], [address] GAP 13 Normal 5-15 [facility] Comment on above: Performed By: #### L 100.0100, L500.4050 ####[facility] [address] [place], [address] GFR/1.73 sq M.predicted among non-blacks MDRD (S/P/Bld) [Vol rate/Area] 72 mL/min/{1.73_m2} Normal >60 [facility] Comment on above: Result Comment: mL/m in/1.73m2 CKD-EPI Creatinine Equation (2020) Performed By: #### L 100.0100, L500.4050 ####[facility] [address] [place], [address] Globulin (S) [Mass/Vol] 3.6 g/dL Normal 2.2-4.2 [facility] Comment on above: Performed By: #### L 100.0100, L500.4050 ####[facility] [address] [place], [address] Glucose [Mass/Vol] 135 mg/dL High 70-99 [facility] Comment on above: Performed By: #### L 100.0100, L500.4050 ####[facility] [address] [place], [address] Potassium [Moles/Vol] 4.3 mmol/L Normal 3.3-5.1 [facility] Comment on above: Performed By: #### L 100.0100, L500.4050 ####[facility] [address] [place], [address] Sodium [Moles/Vol] 136 mmol/L Normal 133-145 [facility] Comment on above: Performed By: #### L 100.0100, L500.4050 ####[facility] [address] [place], [address] T PROT 8.4 g/dL Normal 5.9-8.4 [facility] Comment on above: Performed By: #### L 100.0100, L500.4050 ####[facility] [address] [place], [address] Urea nitrogen [Mass/Vol] 24 mg/dL High 4-19 [facility] Comment on above: Performed By: #### L 100.0100, L500.4050 ####[facility] [address] [place], [address] Eosinophil percentageOrdered By: Yusuf Leyva on 01-22-2025 Eosinophils/100 WBC (Bld) 1.1 % 0-5 [facility] Erythrocyte distribution wid th ratioOrdered By: Yusuf Leyva on 01-22-2025 Erythrocyte distribution width (RBC) [Ratio] 15.9 % High 11.6-14.6 [facility] Erythrocyte distribution wid th standard deviationOrdered By: Yusuf Leyva on 01-22-2025 Erythrocyte distribution width (RBC) [Ratio] 52.5 fl High 35.1-43.9 [facility] Glomerular filtration rate ( GFR) estimation/1.73 sq m using serum, plasma, or whole bOrdered By: Yusuf Leyva on 01-22-2025 GFR/1.73 sq M.predicted among non-blacks MDRD (S/P/Bld) [Vol rate/Area] 72 mL/min/{1.73_m2} >60 [facility] Comment on above: mL/min/1.73m2 CKD-EP I Creatinine Equation (2020) Hematocrit Auto (Bld) [Volum e fraction]Ordered By: Yusuf Leyva on 01-22-2025 Hematocrit (Bld) [Volume fraction] 37.1 % 37-47 [facility] Hemoglobin measurementOrdere d By: Yusuf Leyva on 01-22-2025 Hemoglobin (Bld) [Mass/Vol] 12.3 g/dL 12.0-15.0 [facility] Immature granulocytes/100 WB C Auto (Bld)Ordered By: Yusuf Leyva on 01-22-2025 Immature granulocytes/100 WBC (Bld) 1.100 % High 0.0-0.9 [facility] Comment on above: IG% - Immature Granu locytes (promyelocytes, myelocytes and metamyelocytes) > 1% indicates that a LEFT SHIFT is Present. Interpretation of serum or p lasma protein pattern by immunofixation (narrative resultOrdered By: Anika Smith on 01-22-2025 Protein Fractions Immunofixation Ulisses [Interp] 0.9 g/dL High Not Observed [facility] Laboratory - Chemistry and C hemistry - challengeOrdered By: Yusuf Leyva on 01-22-2025 AST [Catalytic activity/Vol] 24 U/L <32 [facility] MCV (mean corpuscular volume ) determinationOrdered By: Yusuf Leyva on 01-22-2025 MCV (RBC) [Entitic vol] 90.0 fL 81-99 [facility] Mean corpuscular hemoglobin (MCH) determinationOrdered By: [facility] on 01-22-2025 MCH (RBC) [Entitic mass] 29.9 pg 27.0-32.0 [facility] Mean corpuscular hemoglobin concentration (MCHC) determinationOrdered By: [facility] on 01-22-2025 MCHC (RBC) [Mass/Vol] 33.2 g/dL 32-36 [facility] Mean platelet volume determi nationOrdered By: Yusuf Leyva on 01-22-2025 Platelet mean volume (Bld) [Entitic vol] 9.5 fL 6.2-12.0 [facility] Monocyte percentageOrdered B y: Yusuf Leyva on 01-22-2025 Monocytes/100 WBC (Bld) 2.6 % 0-10 [facility] Neutrophil percentageOrdered By: [facility] on 01-22-2025 Neutrophils/100 WBC (Bld) 68.8 % 47-70 [facility] No Panel InformationOrdered By: Anika Smith on 01-22-2025 Addendum Document Comment . [facility] Comment on above: Protein electrophore sis scan will follow via computer,mail, or massage operator delivery. Nucleated red blood cell per centageOrdered By: Yusuf Leyva on 01-22-2025 Nucleated RBC/100 WBC (Bld) [Ratio] 0 % 0-5 [facility] Oncology Visit Reporton Oncology Visit Report Normal [facility] Platelet countOrdered By: Frederick Leyva on 01-22-2025 Platelets (Bld) [#/Vol] 201 10*3/uL 150-450 [facility] Potassium measurement (mass/ volume)Ordered By: Yusuf Leyva on 01-22-2025 Potassium (Unsp spec) [Mass/Vol] 4.3 mmol/L 3.3-5.1 [facility] RBC Auto (Bld) [#/Vol]Ordere d By: Yusuf Leyva on 01-22-2025 RBC (Bld) [#/Vol] 4.12 10*6/uL Low 4.2-5.4 [facility] Serum creatinine measurement (mass/volume)Ordered By: Yusuf Leyva on 01-22-2025 Creatinine [Mass/Vol] 0.85 mg/dL 0.70-1.20 [facility] Serum globulin measurementOr dered By: Yusuf Leyva on 01-22-2025 Globulin (S) [Mass/Vol] 3.6 g/dL 2.2-4.2 [facility] Serum glucose measurement (m ass/volume)Ordered By: Yusuf Leyva on 01-22-2025 Glucose [Mass/Vol] 135 mg/dL High 70-99 [facility] Serum immunoglobulin kappa l ight chains/immunoglobulin lambda light chains mass ratioOrdered By: Anika Smith on 01-22-2025 Immunoglobulin light chains.kappa/Immunoglob ulin light chains.lambda (S) [Mass ratio] 1.55 0.26-1.65 [facility] Comment on above: Performed at: [facility] [address] [id number] Director: Chris Amos PhD, Phone: [phone] Serum or plasma IgA measurem ent (mass/volume)Ordered By: Anika Smith on 09-02-2025 IgA [Mass/Vol] 22 mg/dL Low 64-422 [facility] Comment on above: Result confirmed on concentration. Serum or plasma IgG measurem ent (mass/volume)Ordered By: Anika Smith on 01-22-2025 IgG [Mass/Vol] 1411 mg/dL 586-1602 [facility] Serum or plasma alanine oliveira otransferase (ALT) measurementOrdered By: Yusuf Leyva on 01-22-2025 ALT [Catalytic activity/Vol] 22 U/L <35 [facility] Serum or plasma albumin marv urement (mass/volume)Ordered By: Yusuf Leyva on 01-22-2025 Albumin [Mass/Vol] 4.8 g/dL 3.4-4.8 [facility] Serum or plasma albumin/glob ulin mass ratioOrdered By: Yusuf Leyva on 01-22-2025 Albumin/Globulin [Mass ratio] 1.3 {ratio} 0.9-2.4 [facility] Serum or plasma alkaline milla sphatase measurementOrdered By: Yusuf Leyva on 01-22-2025 ALP [Catalytic activity/Vol] 150 U/L High 35-104 [facility] Serum or plasma alpha 1 glob ulin measurement by electrophoresis (mass/volume)Ordered By: Anika Smith on 01-22-2025 Alpha 1 globulin Elph [Mass/Vol] 0.3 g/dL 0.0-0.4 [facility] Alpha 1 globulin Elph [Mass/Vol] 1.0 g/dL 0.4-1.0 [facility] Serum or plasma beta globuli n measurement by electrophoresis (mass/volume)Ordered By: Anika Smith on 01-22-2025 Beta globulin Elph [Mass/Vol] 1.3 g/dL 0.7-1.3 [facility] Serum or plasma calcium marv urement (mass/volume)Ordered By: Yusuf Leyva on 01-22-2025 Calcium [Mass/Vol] 9.9 mg/dL 7.6-11.0 [facility] Serum or plasma gamma globul in measurement by electrophoresis (mass/volume)Ordered By: Anika Smith on 01-22-2025 Gamma globulin Elph [Mass/Vol] 1.3 g/dL 0.4-1.8 [facility] Serum or plasma immunoelectr ophoresis interpretation (nominal result)Ordered By: Anika Smith on 01-22-2025 Interpretation IEP [Interp] Comment High . 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 PLEASE NOTE: Samples from patients receiving DARZALEX(R)(daratumumab) or SARCLISA(R)(isatuximab-irfc) treatmentcan appear as an IgG kappa and mask a complete response(CR). If this patient is receiving these therapies, thisIFE assay interference can be removed by ordering testnumber [id number], Daratumumab-Specific,Serum or [id number], Isatuximab-Specific,Serum and submitting a new sample for testing or bycalling the lab to add this test to the current sample. Serum or plasma immunoglobul in kappa light chains measurement (mass/volume)Ordered By: Anika Smith on 01-22-2025 Immunoglobulin light chains.kappa [Mass/Vol] 9.0 mg/L 3.3-19.4 [facility] Serum or plasma protein marv urement (mass/volume)Ordered By: Anika Smith on 01-22-2025 Protein [Mass/Vol] 7.9 g/dL 6.0-8.5 [facility] Serum or plasma urea nitroge n measurement (mass/volume)Ordered By: Yusuf Leyva on 01-22-2025 Urea nitrogen [Mass/Vol] 24 mg/dL High 4-19 [facility] Sodium levelOrdered By: Semaj Leyva on 01-22-2025 Sodium [Moles/Vol] 136 mmol/L 133-145 [facility] Total proteinOrdered By: Faustino Leyva on 01-22-2025 Protein [Mass/Vol] 8.4 g/dL 5.9-8.4 [facility] White blood cell (WBC) count Ordered By: Yusuf Leyva on 01-22-2025 WBC (Bld) [#/Vol] 3.5 10*3/uL Low 4.4-11.0 [facility] GAYLE + Protein Elect, Serumon 12-27-2024 Albumin [Mass/Vol] 3.5 g/dL Normal 2.9-4.4 [facility] Comment on above: Order Comment: N Performed By: #### L 3100.3425, L3130.0010 ####[facility] [address] [place], [address] Albumin/Globulin [Mass ratio] 1.1 {ratio} Normal 0.7-1.7 [facility] Comment on above: Order Comment: N Performed By: #### L 3100.3425, L3130.0010 ####[facility] [address] [place], [address] YTERW-8-TISZ 0.3 g/dL Normal 0.0-0.4 [facility] Comment on above: Order Comment: N Performed By: #### L 0.342, L3130.0010 ####[facility] [address] [place], [address] ICXWG-5-HOTW 0.8 g/dL Normal 0.4-1.0 [facility] Comment on above: Order Comment: N Performed By: #### L 0.3425, L3130.0010 ####[facility] [address] [place], [address] BETA GLOBULIN 1.1 g/dL Normal 0.7-1.3 [facility] Comment on above: Order Comment: N Performed By: #### L 0.342, L3130.0010 ####[facility] [address] [place], [address] GAMMA GLOBULIN 1.1 g/dL Normal 0.4-1.8 [facility] Comment on above: Order Comment: N Performed By: #### L 3100.3425, L3130.0010 ####[facility] [address] [place], [address] Globulin (S) [Mass/Vol] 3.3 g/dL Normal 2.2-3.9 [facility] Comment on above: Order Comment: N Performed By: #### L 3100.3425, L3130.0010 ####[facility] [address] [place], [address] GAYLE RESULT,S Comment Abnormal . 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 PLEASE NOTE: Samples from patients receiving DARZALEX(R)(daratumumab) or SARCLISA(R)(isatuximab-[facility]) treatmentcan appear as an IgG kappa and mask a complete response(CR). If this patient is receiving these therapies, thisIFE assay interference can be removed by ordering testnumber [id number], Daratumumab-Specific,Serum or [id number]-Gijnqhfqvaavwg, Isatuximab-Specific,Serum and submitting a new sample for testing or bycalling the lab to add this test to the current sample. Performed By: #### L 3100.3425, L3130.0010 ####[facility] [address] [place], [address] IMMUNOGLOB A QN 56 mg/dL Low 64-422 [facility] Comment on above: Order Comment: N Performed By: #### L 3100.3425, L3130.0010 ####[facility] [address] [place], [address] IMMUNOGLOB G QN 1081 mg/dL Normal 586-1602 [facility] Comment on above: Order Comment: N Performed By: #### L 3100.3425, L3130.0010 ####[facility] [address] [place], [address] IMMUNOGLOB M QN 13 mg/dL Low 26-217 [facility] Comment on above: Order Comment: N Result Comment: Resu lt confirmed on concentration. Performed By: #### L 3100.3425, L3130.0010 ####[facility] [address] [place], [address] M-Adolfo 0.8 g/dL Abnormal Not Observed [facility] Comment on above: Order Comment: N Performed By: #### L 3100.3425, L3130.0010 ####[facility] [address] [place], [address] NOTE: Comment Normal . [facility] Comment on above: Order Comment: N Result Comment: Prot ein electrophoresis scan will follow via computer,mail, or massage operator delivery. Performed By: #### L 3100.3425, L3130.0010 ####[facility] [address] [place], [address] Protein [Mass/Vol] 6.8 g/dL Normal 6.0-8.5 [facility] Comment on above: Order Comment: N Performed By: #### L 3100.3425, L3130.0010 ####[facility] [address] [place], [address] [place] Lambda Light Chainson 12-27-2024 FR KAPPA LT CHN 11.9 mg/L Normal 3.3-19.4 [facility] Comment on above: Performed By: #### L 3100.3425, L3130.0010 ####[facility] [address] [place], [address] FR LAMBDA LT CH 6.6 mg/L Normal 5.7-26.3 [facility] Comment on above: Performed By: #### L 3100.3425, L3130.0010 ####[facility] [address] [place], [address] KAPPA/LAMBDA % 1.80 Abnormal 0.26-1.65 [facility] Comment on above: Result Comment: Perf ormed at: [facility] [address] [id number] Director: Chris Amos PhD, Phone: [phone] Performed By: #### L 3100.3425, L3130.0010 ####[facility] [address] [place], [address] Absolute lymphocyte countOrd ered By: Yusuf Leyva on 12-25-2024 Lymphocytes Auto (Unsp spec) [#/Vol] 1.52 10*3/uL 0.83-4.51 [facility] Absolute neutrophil countOrd ered By: Yusuf Leyva on 12-25-2024 Neutrophils (Bld) [#/Vol] 0.7 10*3/uL Low 2.0-7.7 [facility] Albumin Elph [Mass/Vol]Order ed By: Anika Smith on 12-25-2024 Albumin [Mass/Vol] 3.5 g/dL 2.9-4.4 [facility] Anion gap in Serum or Plasma Ordered By: Yusuf Leyva on 12-25-2024 Anion gap [Moles/Vol] 10 mmol/L 5-15 [facility] Automated lymphocyte count a s percentage of total leukocytesOrdered By: Yusuf Leyva on 12-25-2024 Lymphocytes/100 WBC Auto (Unsp spec) 50.7 % High 19-41 [facility] BUN/creatinine ratioOrdered By: [facility] on 12-25-2024 Urea nitrogen/Creatinine [Mass ratio] 25.8 mg/mg High 10-20 [facility] Basophil percentageOrdered B y: Yusuf Leyva on 12-25-2024 Basophils/100 WBC (Bld) 2.0 % High 0-1 [facility] Bilirubin, totalOrdered By: Yusuf Leyva on 12-25-2024 Bilirubin [Mass/Vol] 0.44 mg/dL 0.00-1.30 [facility] CBC W/Diff, Automatedon PLT EST ADEQUATE Normal ADEQ [facility] Comment on above: Performed By: #### L 100.0100, L500.4050 ####[facility] [address] [place], [place], [address] Carbon dioxide, total [Moles /volume] in Central venous bloodOrdered By: Yusuf Leyva on 12-25-2024 CO2 [Moles/Vol] 22.0 mmol/L 21.0-32.0 [facility] Chloride assayOrdered By: Frederick karla Gordon on 12-25-2024 Chloride [Moles/Vol] 108 mmol/L 98-108 [facility] Comprehensive Metabolic Prof ilon 12-25-2024 Albumin [Mass/Vol] 4.2 g/dL Normal 3.4-4.8 [facility] Comment on above: Performed By: #### L 100.0100, L500.4050 ####[facility] [address] [place], [address] Albumin/Globulin [Mass ratio] 1.4 {ratio} Normal 0.9-2.4 [facility] Comment on above: Performed By: #### L 100.0100, L500.4050 ####[facility] [address] [place], [address] ALK PHOS 116 U/L High 35-104 [facility] Comment on above: Performed By: #### L 100.0100, L500.4050 ####[facility] [address] [place], [address] ALT [Catalytic activity/Vol] 18 U/L Normal <=34 [facility] Comment on above: Performed By: #### L 100.0100, L500.4050 ####[facility] [address] [place], [address] AST [Catalytic activity/Vol] 20 U/L Normal <=31 [facility] Comment on above: Performed By: #### L 100.0100, L500.4050 ####[facility] [address] [place], [address] Bilirubin [Mass/Vol] 0.44 mg/dL Normal 0.00-1.30 [facility] Comment on above: Performed By: #### L 100.0100, L500.4050 ####[facility] [address] [place], [address] BUN/CRE 25.8 RATIO High 10-20 [facility] Comment on above: Performed By: #### L 100.0100, L500.4050 ####[facility] [address] [place], [address] Calcium [Mass/Vol] 9.5 mg/dL Normal 7.6-11.0 [facility] Comment on above: Performed By: #### L 100.0100, L500.4050 ####[facility] [address] [place], [address] Chloride [Moles/Vol] 108 mmol/L Normal 98-108 [facility] Comment on above: Performed By: #### L 100.0100, L500.4050 ####[facility] [address] [place], [address] CO2 [Moles/Vol] 22.0 mmol/L Normal 21.0-32.0 [facility] Comment on above: Performed By: #### L 100.0100, L500.4050 ####[facility] [address] [place], [address] Creatinine [Mass/Vol] 0.74 mg/dL Normal 0.70-1.20 [facility] Comment on above: Performed By: #### L 100.0100, L500.4050 ####[facility] [address] [place], [address] ECRCL 52.79 ml/min Normal 50-250 [facility] Comment on above: Performed By: #### L 100.0100, L500.4050 ####[facility] [address] [place], [address] GAP 10 Normal 5-15 [facility] Comment on above: Performed By: #### L 100.0100, L500.4050 ####[facility] [address] [place], [address] GFR/1.73 sq M.predicted among non-blacks MDRD (S/P/Bld) [Vol rate/Area] 85 mL/min/{1.73_m2} Normal >60 [facility] Comment on above: Result Comment: mL/m in/1.73m2 CKD-EPI Creatinine Equation (2020) Performed By: #### L 100.0100, L500.4050 ####[facility] [address] [place], [address] Globulin (S) [Mass/Vol] 3.1 g/dL Normal 2.2-4.2 [facility] Comment on above: Performed By: #### L 100.0100, L500.4050 ####[facility] [address] [place], [address] Glucose [Mass/Vol] 102 mg/dL High 70-99 [facility] Comment on above: Performed By: #### L 100.0100, L500.4050 ####[facility] [address] [place], [address] Potassium [Moles/Vol] 4.4 mmol/L Normal 3.3-5.1 [facility] Comment on above: Performed By: #### L 100.0100, L500.4050 ####[facility] [address] [place], [address] Sodium [Moles/Vol] 140 mmol/L Normal 133-145 [facility] Comment on above: Performed By: #### L 100.0100, L500.4050 ####[facility] [address] [place], [address] T PROT 7.3 g/dL Normal 5.9-8.4 [facility] Comment on above: Performed By: #### L 100.0100, L500.4050 ####[facility] [address] [place], [address] Urea nitrogen [Mass/Vol] 19 mg/dL Normal 4-19 [facility] Comment on above: Performed By: #### L 100.0100, L500.4050 ####[facility] [address] [place], [address] Eosinophil percentageOrdered By: Yusuf Leyva on 12-25-2024 Eosinophils/100 WBC (Bld) 4.7 % 0-5 [facility] Erythrocyte distribution wid th ratioOrdered By: [facility] on 12-25-2024 Erythrocyte distribution width (RBC) [Ratio] 15.9 % High 11.6-14.6 [facility] Erythrocyte distribution wid th standard deviationOrdered By: [facility] Gordon on 12-25-2024 Erythrocyte distribution width (RBC) [Ratio] 52.2 fl High 35.1-43.9 [facility] Glomerular filtration rate ( GFR) estimation/1.73 sq m using serum, plasma, or whole bOrdered By: [facility] Le[facility] on 12-25-2024 GFR/1.73 sq M.predicted among non-blacks MDRD (S/P/Bld) [Vol rate/Area] 85 mL/min/{1.73_m2} >60 [facility] Comment on above: mL/min/1.73m2 CKD-EP I Creatinine Equation (2020) Hematocrit Auto (Bld) [Volum e fraction]Ordered By: Yusuf Leyva on 12-25-2024 Hematocrit (Bld) [Volume fraction] 32.6 % Low 37-47 [facility] Hemoglobin measurementOrdere d By: Yusuf Leyva on 12-25-2024 Hemoglobin (Bld) [Mass/Vol] 10.6 g/dL Low 12.0-15.0 [facility] GAYLE + Protein Elect, Serumon 12-25-2024 A/G RATIO Normal [facility] Comment on above: Order Comment: N Result Comment: DUPL ICATE ORDER Performed By: #### L 3130.0010, L3100.3425 ####[facility] [address] [place], [address] ALBUMIN Normal [facility] Comment on above: Order Comment: N Result Comment: DUPL ICATE ORDER Performed By: #### L 3130.0010, L3100.3425 ####[facility] [address] [place], [address] UQLZQ-1-MFIQ Normal [facility] Comment on above: Order Comment: N Result Comment: DUPL ICATE ORDER Performed By: #### L 3130.0010, L3100.3425 ####[facility] [address] [place], [address] IVIYB-2-AHZC Normal [facility] Comment on above: Order Comment: N Result Comment: DUPL ICATE ORDER Performed By: #### L 3130.0010, L3100.3425 ####[facility] [address] [place], [address] BETA GLOBULIN Normal [facility] Comment on above: Order Comment: N Result Comment: DUPL ICATE ORDER Performed By: #### L 3130.0010, L3100.3425 ####[facility] [address] [place], [address] GAMMA GLOBULIN Normal [facility] Comment on above: Order Comment: N Result Comment: DUPL ICATE ORDER Performed By: #### L 3130.0010, L3100.3425 ####[facility] [address] [place], [address] IMMUNOGLOB A QN Normal [facility] Comment on above: Order Comment: N Result Comment: DUPL ICATE ORDER Performed By: #### L 3130.0010, L3100.3425 ####[facility] [address] [place], [address] IMMUNOGLOB G QN Normal [facility] Comment on above: Order Comment: N Result Comment: DUPL ICATE ORDER Performed By: #### L 3130.0010, L3100.3425 ####[facility] [address] [place], [address] IMMUNOGLOB M QN Normal [facility] Comment on above: Order Comment: N Result Comment: DUPL ICATE ORDER Performed By: #### L 3130.0010, L3100.3425 ####[facility] [address] [place], [address] M-Adolfo Normal [facility] Comment on above: Order Comment: N Result Comment: DUPL ICATE ORDER Performed By: #### L 3130.0010, L3100.3425 ####[facility] [address] [place], [address] PROTEIN,TOTAL Normal 6.0-8.5 [facility] Comment on above: Order Comment: N Result Comment: DUPL ICATE ORDER Performed By: #### L 3130.0010, L3100.3425 ####[facility] [address] [place], [address] Immature granulocytes/100 WB C Auto (Bld)Ordered By: Yusuf Leyva on 12-25-2024 Immature granulocytes/100 WBC (Bld) 0.300 % 0.0-0.9 [facility] Comment on above: IG% - Immature Granu locytes (promyelocytes, myelocytes and metamyelocytes) > 1% indicates that a LEFT SHIFT is Present. Interpretation of serum or p lasma protein pattern by immunofixation (narrative resultOrdered By: Anika Smith on 12-25-2024 Protein Fractions Immunofixation Ulisses [Interp] 0.8 g/dL High Not Observed [facility] [place] Lambda Light Chainson 12-25-2024 FR KAPPA LT CHN Normal [facility] Comment on above: Result Comment: DUPL ICATE ORDER Performed By: #### L 3130.0010, L3100.3425 ####[facility] [address] [place], [address] FR LAMBDA LT CH Normal [facility] Comment on above: Result Comment: DUPL ICATE ORDER Performed By: #### L 3130.0010, L3068.0135 ####[facility] [address] [place], [place], [address] KAPPA/LAMBDA % Normal [facility] Comment on above: Result Comment: DUPL ICATE ORDER Performed By: #### L 3130.0010, L3100.3425 ####[facility] [address] [place], [place], [address] Laboratory - Chemistry and C hemistry - challengeOrdered By: Yusuf Leyva on 12-25-2024 AST [Catalytic activity/Vol] 20 U/L <32 [facility] MCV (mean corpuscular volume ) determinationOrdered By: Yusuf Leyva on 12-25-2024 MCV (RBC) [Entitic vol] 91.6 fL 81-99 [facility] Mean corpuscular hemoglobin (MCH) determinationOrdered By: Yusuf Leyva on 12-25-2024 MCH (RBC) [Entitic mass] 29.8 pg 27.0-32.0 [facility] Mean corpuscular hemoglobin concentration (MCHC) determinationOrdered By: Yusuf Leyva on 12-25-2024 MCHC (RBC) [Mass/Vol] 32.5 g/dL 32-36 [facility] Mean platelet volume determi nationOrdered By: Yusuf Leyva on 12-25-2024 Platelet mean volume (Bld) [Entitic vol] 10.7 fL 6.2-12.0 [facility] Monocyte percentageOrdered B y: Yusuf Leyva on 12-25-2024 Monocytes/100 WBC (Bld) 20.0 % High 0-10 [facility] Neutrophil percentageOrdered By: Yusuf Leyva on 12-25-2024 Neutrophils/100 WBC (Bld) 22.3 % Low 47-70 [facility] No Panel InformationOrdered By: Anika Smith on 12-25-2024 Addendum Document Comment . [facility] Comment on above: Protein electrophore sis scan will follow via computer,mail, or massage operator delivery. Nucleated red blood cell per centageOrdered By: Yusuf Leyva on 12-25-2024 Nucleated RBC/100 WBC (Bld) [Ratio] 0 % 0-5 [facility] Oncology Visit Reporton 080 Oncology Visit Report Normal [facility] Platelet countOrdered By: Frederick Leyva on 12-25-2024 Platelets (Bld) [#/Vol] 189 10*3/uL 150-450 [facility] Platelet estimateOrdered By: Yusuf Leyva on 12-25-2024 Platelets LM Ql (Bld) ADEQUATE ADEQ [facility] Potassium measurement (mass/ volume)Ordered By: Yusuf Leyva on 12-25-2024 Potassium (Unsp spec) [Mass/Vol] 4.4 mmol/L 3.3-5.1 [facility] RBC Auto (Bld) [#/Vol]Ordere d By: Yusuf Leyva on 12-25-2024 RBC (Bld) [#/Vol] 3.56 10*6/uL Low 4.2-5.4 [facility] Serum creatinine measurement (mass/volume)Ordered By: Yusuf Leyva on 12-25-2024 Creatinine [Mass/Vol] 0.74 mg/dL 0.70-1.20 [facility] Serum globulin measurementOr dered By: Yusuf Leyva on 12-25-2024 Globulin (S) [Mass/Vol] 3.1 g/dL 2.2-4.2 [facility] Serum glucose measurement (m ass/volume)Ordered By: Yusuf Leyva on 12-25-2024 Glucose [Mass/Vol] 102 mg/dL High 70-99 [facility] Serum immunoglobulin kappa l ight chains/immunoglobulin lambda light chains mass ratioOrdered By: Anika Smith on 12-25-2024 Immunoglobulin light chains.kappa/Immunoglob ulin light chains.lambda (S) [Mass ratio] 1.80 High 0.26-1.65 [facility] Comment on above: Performed at: [address] [id number] Director: Chris Amos PhD, Phone: [phone] Serum or plasma IgA measurem ent (mass/volume)Ordered By: Anika Smith on 12-25-2024 IgA [Mass/Vol] 56 mg/dL Low 64-422 [facility] Serum or plasma IgG measurem ent (mass/volume)Ordered By: Anika Smith on 12-25-2024 IgG [Mass/Vol] 1081 mg/dL 586-1602 [facility] Serum or plasma alanine oliveira otransferase (ALT) measurementOrdered By: Yusuf Leyva on 12-25-2024 ALT [Catalytic activity/Vol] 18 U/L <35 [facility] Serum or plasma albumin marv urement (mass/volume)Ordered By: Yusuf Leyva on 12-25-2024 Albumin [Mass/Vol] 4.2 g/dL 3.4-4.8 [facility] Serum or plasma albumin/glob ulin mass ratioOrdered By: Yusuf Leyva on 12-25-2024 Albumin/Globulin [Mass ratio] 1.4 {ratio} 0.9-2.4 [facility] Serum or plasma alkaline milla sphatase measurementOrdered By: Yusuf Leyva on 12-25-2024 ALP [Catalytic activity/Vol] 116 U/L High 35-104 [facility] Serum or plasma alpha 1 glob ulin measurement by electrophoresis (mass/volume)Ordered By: Anika Smith on 12-25-2024 Alpha 1 globulin Elph [Mass/Vol] 0.3 g/dL 0.0-0.4 [facility] Alpha 1 globulin Elph [Mass/Vol] 0.8 g/dL 0.4-1.0 [facility] Serum or plasma beta globuli n measurement by electrophoresis (mass/volume)Ordered By: Anika Smith on 12-25-2024 Beta globulin Elph [Mass/Vol] 1.1 g/dL 0.7-1.3 [facility] Serum or plasma calcium marv urement (mass/volume)Ordered By: Yusuf Leyva on 12-25-2024 Calcium [Mass/Vol] 9.5 mg/dL 7.6-11.0 [facility] Serum or plasma gamma globul in measurement by electrophoresis (mass/volume)Ordered By: Anika Smith on 12-25-2024 Gamma globulin Elph [Mass/Vol] 1.1 g/dL 0.4-1.8 [facility] Serum or plasma immunoelectr ophoresis interpretation (nominal result)Ordered By: Anika Smith on 12-25-2024 Interpretation IEP [Interp] Comment High . 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 PLEASE NOTE: Samples from patients receiving DARZALEX(R)(daratumumab) or SARCLISA(R)(isatuximab-[facility]) treatmentcan appear as an IgG kappa and mask a complete response(CR). If this patient is receiving these therapies, thisIFE assay interference can be removed by ordering testnumber [id number], Daratumumab-Specific,Serum or [id number], Isatuximab-Specific,Serum and submitting a new sample for testing or bycalling the lab to add this test to the current sample. Serum or plasma immunoglobul in kappa light chains measurement (mass/volume)Ordered By: Anika Smith on 12-25-2024 Immunoglobulin light chains.kappa [Mass/Vol] 11.9 mg/L 3.3-19.4 [facility] Serum or plasma protein marv urement (mass/volume)Ordered By: Anika Smith on 12-25-2024 Protein [Mass/Vol] 6.8 g/dL 6.0-8.5 [facility] Serum or plasma urea nitroge n measurement (mass/volume)Ordered By: Yusuf Leyva on 12-25-2024 Urea nitrogen [Mass/Vol] 19 mg/dL 4-19 [facility] Sodium levelOrdered By: Semaj Leyva on 12-25-2024 Sodium [Moles/Vol] 140 mmol/L 133-145 [facility] Total proteinOrdered By: Faustino Leyva on 12-25-2024 Protein [Mass/Vol] 7.3 g/dL 5.9-8.4 [facility] White blood cell (WBC) count Ordered By: Yusuf Leyva on 12-25-2024 WBC (Bld) [#/Vol] 3.0 10*3/uL Low 4.4-11.0 [facility] GAYLE + Protein Rosalee Guzmanon 11-29-2024 Albumin [Mass/Vol] 3.5 g/dL Normal 2.9-4.4 [facility] Comment on above: Order Comment: N Performed By: #### L 3100.3425, L3130.0010 ####[facility] [address] [place], [address] Albumin/Globulin [Mass ratio] 1.1 {ratio} Normal 0.7-1.7 [facility] Comment on above: Order Comment: N Performed By: #### L 3100.3425, L3130.0010 ####[facility] [address] [place], [address] YMOIS-3-CQWN 0.3 g/dL Normal 0.0-0.4 [facility] Comment on above: Order Comment: N Performed By: #### L 3100.3425, L3130.0010 ####[facility] [address] [place], [address] XFVKG-0-JWSY 0.9 g/dL Normal 0.4-1.0 [facility] Comment on above: Order Comment: N Performed By: #### L 3100.3425, L3130.0010 ####[facility] [address] [place], [address] BETA GLOBULIN 1.1 g/dL Normal 0.7-1.3 [facility] Comment on above: Order Comment: N Performed By: #### L 3100.3425, L3130.0010 ####[facility] [address] [place], [address] GAMMA GLOBULIN 1.2 g/dL Normal 0.4-1.8 [facility] Comment on above: Order Comment: N Performed By: #### L 3100.3425, L3130.0010 ####[facility] [address] [place], [address] Globulin (S) [Mass/Vol] 3.4 g/dL Normal 2.2-3.9 [facility] Comment on above: Order Comment: N Performed By: #### L 3100.3425, L3130.0010 ####[facility] [address] [place], [address] GAYLE RESULT,S Comment Abnormal . 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 PLEASE NOTE: Samples from patients receiving DARZALEX(R)(daratumumab) or SARCLISA(R)(isatuximab-irfc) treatmentcan appear as an IgG kappa and mask a complete response(CR). If this patient is receiving these therapies, thisIFE assay interference can be removed by ordering testnumber [id number], Daratumumab-Specific,Serum or [id number]-Lzkcxlakxaqilu, Isatuximab-Specific,Serum and submitting a new sample for testing or bycalling the lab to add this test to the current sample. Performed By: #### L 3100.3425, L3130.0010 ####[facility] [address] [place], [address] IMMUNOGLOB A QN 39 mg/dL Low 64-422 [facility] Comment on above: Order Comment: N Result Comment: Resu lt confirmed on concentration. Performed By: #### L 3100.3425, L3130.0010 ####[facility] [address] [place], [address] IMMUNOGLOB G QN 1204 mg/dL Normal 586-1602 [facility] Comment on above: Order Comment: N Performed By: #### L 3100.3425, L3130.0010 ####[facility] [address] [place], [address] IMMUNOGLOB M QN 13 mg/dL Low 26-217 [facility] Comment on above: Order Comment: N Result Comment: Resu lt confirmed on concentration. Performed By: #### L 3100.3425, L3130.0010 ####[facility] [address] [place], [address] M-Adolfo 0.8 g/dL Abnormal Not Observed [facility] Comment on above: Order Comment: N Performed By: #### L 3100.3425, L3130.0010 ####[facility] [address] [place], [address] NOTE: Comment Normal . [facility] Comment on above: Order Comment: N Result Comment: Prot ein electrophoresis scan will follow via computer,mail, or massage operator delivery. Performed By: #### L 3100.3425, L3130.0010 ####[facility] [address] [place], [address] Protein [Mass/Vol] 6.9 g/dL Normal 6.0-8.5 [facility] Comment on above: Order Comment: N Performed By: #### L 3100.3425, L3130.0010 ####[facility] [address] [place], [address] [place] [employer] 11-29-2024 FR KAPPA LT CHN 14.0 mg/L Normal 3.3-19.4 [facility] Comment on above: Performed By: #### L 3100.3425, L3130.0010 ####[facility] [address] [place], [address] FR LAMBDA LT CH 7.7 mg/L Normal 5.7-26.3 [facility] Comment on above: Performed By: #### L 3100.3425, L3130.0010 ####[facility] [address] [place], [address] KAPPA/LAMBDA % 1.82 Abnormal 0.26-1.65 [facility] Comment on above: Result Comment: Perf ormed at: [facility] [address] [id number] Director: Chris Amos PhD, Phone: [phone] Performed By: #### L 7276.2799, L3130.0010 ####[facility] [address] [place], [address] Absolute lymphocyte countOrd ered By: Yusuf Leyva on 11-27-2024 Lymphocytes Auto (Unsp spec) [#/Vol] 1.04 10*3/uL 0.83-4.51 [facility] Absolute neutrophil countOrd ered By: [facility] Neutrophils (Bld) [#/Vol] 2.5 10*3/uL 2.0-7.7 [facility] Albumin Elph [Mass/Vol]Order ed By: Anika Smith on 11-27-2024 Albumin [Mass/Vol] 3.5 g/dL 2.9-4.4 [facility] Anion gap in Serum or Plasma Ordered By: Yusuf Leyva on 11-27-2024 Anion gap [Moles/Vol] 10 mmol/L 5-15 [facility] Automated lymphocyte count a s percentage of total leukocytesOrdered By: Yusuf Leyva on 11-27-2024 Lymphocytes/100 WBC Auto (Unsp spec) 24.1 % 19-41 [facility] BUN/creatinine ratioOrdered By: [facility] Gordon on 11-27-2024 Urea nitrogen/Creatinine [Mass ratio] 23.1 mg/mg High 10-20 [facility] Basophil percentageOrdered B y: Yusuf Leyva on 11-27-2024 Basophils/100 WBC (Bld) 2.1 % High 0-1 [facility] Bilirubin, totalOrdered By: [facility] on 11-27-2024 Bilirubin [Mass/Vol] 0.41 mg/dL 0.00-1.30 [facility] CBC W/Diff, Automatedon Absolute Lymph 1.04 X10 3/uL Normal 0.83-4.51 [facility] Comment on above: Performed By: #### L 500.6303, L100.0100 ####[facility] [address] [place], [address] Absolute Neut 2.5 X10 3/uL Normal 2.0-7.7 [facility] Comment on above: Performed By: #### L 500.4050, L100.0100 ####[facility] [address] [place], [address] Basophils/100 WBC (Bld) 2.1 % High 0-1 [facility] Comment on above: Performed By: #### L 500.4050, L100.0100 ####[facility] [address] [place], [address] Eosinophils/100 WBC (Bld) 3.7 % Normal 0-5 [facility] Comment on above: Performed By: #### L 500.4050, L100.0100 ####[facility] [address] [place], [address] Erythrocyte distribution width (RBC) [Ratio] 15.1 % High 11.6-14.6 [facility] Comment on above: Performed By: #### L 500.4050, L100.0100 ####[facility] [address] [place], [address] Hematocrit (Bld) [Volume fraction] 34.1 % Low 37-47 [facility] Comment on above: Performed By: #### L 500.4050, L100.0100 ####[facility] [address] [place], [address] Hemoglobin (Bld) [Mass/Vol] 11.0 g/dL Low 12.0-15.0 [facility] Comment on above: Performed By: #### L 500.4050, L100.0100 ####[facility] [address] [place], [address] IG% 0.500 Normal 0.0-0.9 [facility] Comment on above: Result Comment: IG% - Immature Granulocytes (promyelocytes, myelocytes andmetamyelocytes) > 1% indicates that a LEFT SHIFT is Present. Performed By: #### L 500.4050, L100.0100 ####[facility] [address] [place], [address] Lymphocytes/100 WBC (Bld) 24.1 % Normal 19-41 [facility] Comment on above: Performed By: #### L 500.4050, L100.0100 ####[facility] [address] [place], [address] MCH (RBC) [Entitic mass] 29.6 pg Normal 27.0-32.0 [facility] Comment on above: Performed By: #### L 500.4050, L100.0100 ####[facility] [address] [place], [address] MCHC (RBC) [Mass/Vol] 32.3 g/dL Normal 32-36 [facility] Comment on above: Performed By: #### L 500.4050, L100.0100 ####[facility] [address] [place], [address] MCV (RBC) [Entitic vol] 91.7 fL Normal 81-99 [facility] Comment on above: Performed By: #### L 500.4050, L100.0100 ####[facility] [address] [place], [address] Monocytes/100 WBC (Bld) 12.5 % High 0-10 [facility] Comment on above: Performed By: #### L 500.4050, L100.0100 ####[facility] [address] [place], [address] Neutrophils/100 WBC (Bld) 57.1 % Normal 47-70 [facility] Comment on above: Performed By: #### L 500.4050, L100.0100 ####[facility] [address] [place], [address] Nucleated RBC (Bld) [#/Vol] 0 10*3/uL Normal 0-5 [facility] Comment on above: Performed By: #### L 500.4050, L100.0100 ####[facility] [address] [place], [address] Platelet mean volume (Bld) [Entitic vol] 10.1 fL Normal 6.2-12.0 [facility] Comment on above: Performed By: #### L 500.4050, L100.0100 ####[facility] [address] [place], [address] Platelets (Bld) [#/Vol] 177 10*3/uL Normal 150-450 [facility] Comment on above: Performed By: #### L 500.4050, L100.0100 ####[facility] [address] [place], [address] RBC (Bld) [#/Vol] 3.72 10*6/uL Low 4.2-5.4 [facility] Comment on above: Performed By: #### L 500.4050, L100.0100 ####[facility] [address] [place], [address] RDW SD 49.7 fl High 35.1-43.9 [facility] Comment on above: Performed By: #### L 500.4050, L100.0100 ####[facility] [address] [place], [address] WBC (Bld) [#/Vol] 4.3 10*3/uL Low 4.4-11.0 [facility] Comment on above: Performed By: #### L 500.4050, L100.0100 ####[facility] [address] [place], [address] Carbon dioxide, total [Moles /volume] in Central venous bloodOrdered By: Yusuf Leyva on 11-27-2024 CO2 [Moles/Vol] 23.8 mmol/L 21.0-32.0 [facility] Chloride assayOrdered By: Frederick Leyva on 11-27-2024 Chloride [Moles/Vol] 105 mmol/L 98-108 [facility] Comprehensive Metabolic Prof ilon 11-27-2024 Albumin [Mass/Vol] 4.3 g/dL Normal 3.4-4.8 [facility] Comment on above: Performed By: #### L 500.4050, L100.0100 ####[facility] [address] [place], [address] Albumin/Globulin [Mass ratio] 1.4 {ratio} Normal 0.9-2.4 [facility] Comment on above: Performed By: #### L 500.4050, L100.0100 ####[facility] [address] [place], [address] ALK PHOS 109 U/L High 35-104 [facility] Comment on above: Performed By: #### L 500.4050, L100.0100 ####[facility] [address] [place], [address] ALT [Catalytic activity/Vol] 16 U/L Normal <=34 [facility] Comment on above: Performed By: #### L 500.4050, L100.0100 ####[facility] [address] [place], [address] AST [Catalytic activity/Vol] 17 U/L Normal <=31 [facility] Comment on above: Performed By: #### L 500.4050, L100.0100 ####[facility] [address] [place], [address] Bilirubin [Mass/Vol] 0.41 mg/dL Normal 0.00-1.30 [facility] Comment on above: Performed By: #### L 500.4050, L100.0100 ####[facility] [address] [place], [address] BUN/CRE 23.1 RATIO High 10-20 [facility] Comment on above: Performed By: #### L 500.4050, L100.0100 ####[facility] [address] [place], [address] Calcium [Mass/Vol] 9.4 mg/dL Normal 7.6-11.0 [facility] Comment on above: Performed By: #### L 500.4050, L100.0100 ####[facility] [address] [place], [address] Chloride [Moles/Vol] 105 mmol/L Normal 98-108 [facility] Comment on above: Performed By: #### L 500.4050, L100.0100 ####[facility] [address] [place], [address] CO2 [Moles/Vol] 23.8 mmol/L Normal 21.0-32.0 [facility] Comment on above: Performed By: #### L 500.4050, L100.0100 ####[facility] [address] [place], [address] Creatinine [Mass/Vol] 0.71 mg/dL Normal 0.70-1.20 [facility] Comment on above: Performed By: #### L 500.4050, L100.0100 ####[facility] [address] [place], [address] ECRCL 52.79 ml/min Normal 50-250 [facility] Comment on above: Performed By: #### L 500.4050, L100.0100 ####[facility] [address] [place], [address] GAP 10 Normal 5-15 [facility] Comment on above: Performed By: #### L 500.4050, L100.0100 ####[facility] [address] [place], [address] GFR/1.73 sq M.predicted among non-blacks MDRD (S/P/Bld) [Vol rate/Area] 89 mL/min/{1.73_m2} Normal >60 [facility] Comment on above: Result Comment: mL/m in/1.73m2 CKD-EPI Creatinine Equation (2020) Performed By: #### L 500.4050, L100.0100 ####[facility] [address] [place], [address] Globulin (S) [Mass/Vol] 3.1 g/dL Normal 2.2-4.2 [facility] Comment on above: Performed By: #### L 500.4050, L100.0100 ####[facility] [address] [place], [address] Glucose [Mass/Vol] 110 mg/dL High 70-99 [facility] Comment on above: Performed By: #### L 500.4050, L100.0100 ####[facility] [address] [place], [address] Potassium [Moles/Vol] 4.2 mmol/L Normal 3.3-5.1 [facility] Comment on above: Performed By: #### L 500.4050, L100.0100 ####[facility] [address] [place], [address] Sodium [Moles/Vol] 139 mmol/L Normal 133-145 [facility] Comment on above: Performed By: #### L 500.4050, L100.0100 ####[facility] [address] [place], [address] T PROT 7.3 g/dL Normal 5.9-8.4 [facility] Comment on above: Performed By: #### L 500.4050, L100.0100 ####[facility] [address] [place], [place], [address] Urea nitrogen [Mass/Vol] 17 mg/dL Normal 4-19 [facility] Comment on above: Performed By: #### L 500.4050, L100.0100 ####[facility] [address] [place], [address] Eosinophil percentageOrdered By: Yusuf Leyva on 11-27-2024 Eosinophils/100 WBC (Bld) 3.7 % 0-5 [facility] Erythrocyte distribution wid th ratioOrdered By: [facility] 11-27-2024 Erythrocyte distribution width (RBC) [Ratio] 15.1 % High 11.6-14.6 [facility] Erythrocyte distribution wid th standard deviationOrdered By: [facility] on 11-27-2024 Erythrocyte distribution width (RBC) [Ratio] 49.7 fl High 35.1-43.9 [facility] Glomerular filtration rate ( GFR) estimation/1.73 sq m using serum, plasma, or whole bOrdered By: Yusuf Leyva on 11-27-2024 GFR/1.73 sq M.predicted among non-blacks MDRD (S/P/Bld) [Vol rate/Area] 89 mL/min/{1.73_m2} >60 [facility] Comment on above: mL/min/1.73m2 CKD-EP I Creatinine Equation (2020) Hematocrit Auto (Bld) [Volum e fraction]Ordered By: Yusuf Leyva on 11-27-2024 Hematocrit (Bld) [Volume fraction] 34.1 % Low 37-47 [facility] Hemoglobin measurementOrdere d By: Yusuf Leyva on 11-27-2024 Hemoglobin (Bld) [Mass/Vol] 11.0 g/dL Low 12.0-15.0 [facility] Immature granulocytes/100 WB C Auto (Bld)Ordered By: Yusuf Leyva on 11-27-2024 Immature granulocytes/100 WBC (Bld) 0.500 % 0.0-0.9 [facility] Comment on above: IG% - Immature Granu locytes (promyelocytes, myelocytes and metamyelocytes) > 1% indicates that a LEFT SHIFT is Present. Interpretation of serum or p lasma protein pattern by immunofixation (narrative resultOrdered By: Anika Smith on 11-27-2024 Protein Fractions Immunofixation Ulisses [Interp] 0.8 g/dL High Not Observed [facility] Laboratory - Chemistry and C hemistry - challengeOrdered By: Yusuf Leyva on 11-27-2024 AST [Catalytic activity/Vol] 17 U/L <32 [facility] MCV (mean corpuscular volume ) determinationOrdered By: Yusuf Leyva on 11-27-2024 MCV (RBC) [Entitic vol] 91.7 fL 81-99 [facility] Mean corpuscular hemoglobin (MCH) determinationOrdered By: [facility] on 11-27-2024 MCH (RBC) [Entitic mass] 29.6 pg 27.0-32.0 [facility] Mean corpuscular hemoglobin concentration (MCHC) determinationOrdered By: Yusuf Leyva on 11-27-2024 MCHC (RBC) [Mass/Vol] 32.3 g/dL 32-36 [facility] Mean platelet volume determi nationOrdered By: Yusuf Leyva on 11-27-2024 Platelet mean volume (Bld) [Entitic vol] 10.1 fL 6.2-12.0 [facility] Monocyte percentageOrdered B y: Yusuf Leyva on 11-27-2024 Monocytes/100 WBC (Bld) 12.5 % High 0-10 [facility] Neutrophil percentageOrdered By: Yusuf Leyva on 11-27-2024 Neutrophils/100 WBC (Bld) 57.1 % 47-70 [facility] No Panel InformationOrdered By: Anika Smith on 11-27-2024 Addendum Document Comment . [facility] Comment on above: Protein electrophore sis scan will follow via computer,mail, or massage operator delivery. Nucleated red blood cell per centageOrdered By: Yusuf Leyva on 11-27-2024 Nucleated RBC/100 WBC (Bld) [Ratio] 0 % 0-5 [facility] Oncology Visit Reporton 07-0 Oncology Visit Report Normal [facility] Platelet countOrdered By: Frederick Leyva on 11-27-2024 Platelets (Bld) [#/Vol] 177 10*3/uL 150-450 [facility] Potassium measurement (mass/ volume)Ordered By: Yusuf Leyva on 11-27-2024 Potassium (Unsp spec) [Mass/Vol] 4.2 mmol/L 3.3-5.1 [facility] RBC Auto (Bld) [#/Vol]Ordere d By: Yusuf Leyva on 11-27-2024 RBC (Bld) [#/Vol] 3.72 10*6/uL Low 4.2-5.4 [facility] Serum creatinine measurement (mass/volume)Ordered By: Yusuf Leyva on 11-27-2024 Creatinine [Mass/Vol] 0.71 mg/dL 0.70-1.20 [facility] Serum globulin measurementOr dered By: Yusuf Leyva on 11-27-2024 Globulin (S) [Mass/Vol] 3.1 g/dL 2.2-4.2 [facility] Serum glucose measurement (m ass/volume)Ordered By: Yusuf Leyva on 11-27-2024 Glucose [Mass/Vol] 110 mg/dL High 70-99 [facility] Serum immunoglobulin kappa l ight chains/immunoglobulin lambda light chains mass ratioOrdered By: Anika Smith on 11-27-2024 Immunoglobulin light chains.kappa/Immunoglob ulin light chains.lambda (S) [Mass ratio] 1.82 High 0.26-1.65 [facility] Comment on above: Performed at: [address] [id number] Director: Chris Amos PhD, Phone: [phone] Serum or plasma IgA measurem ent (mass/volume)Ordered By: Anika Smith on 11-27-2024 IgA [Mass/Vol] 39 mg/dL Low 64-422 [facility] Comment on above: Result confirmed on concentration. Serum or plasma IgG measurem ent (mass/volume)Ordered By: Anika Smith on 11-27-2024 IgG [Mass/Vol] 1204 mg/dL 586-1602 [facility] Serum or plasma alanine oliveira otransferase (ALT) measurementOrdered By: Yusuf Leyva on 11-27-2024 ALT [Catalytic activity/Vol] 16 U/L <35 [facility] Serum or plasma albumin marv urement (mass/volume)Ordered By: Yusuf Leyva on 11-27-2024 Albumin [Mass/Vol] 4.3 g/dL 3.4-4.8 [facility] Serum or plasma albumin/glob ulin mass ratioOrdered By: Yusuf Leyva on 11-27-2024 Albumin/Globulin [Mass ratio] 1.4 {ratio} 0.9-2.4 [facility] Serum or plasma alkaline milla sphatase measurementOrdered By: Yusuf Leyva on 11-27-2024 ALP [Catalytic activity/Vol] 109 U/L High 35-104 [facility] Serum or plasma alpha 1 glob ulin measurement by electrophoresis (mass/volume)Ordered By: Anika Smith on 11-27-2024 Alpha 1 globulin Elph [Mass/Vol] 0.3 g/dL 0.0-0.4 [facility] Alpha 1 globulin Elph [Mass/Vol] 0.9 g/dL 0.4-1.0 [facility] Serum or plasma beta globuli n measurement by electrophoresis (mass/volume)Ordered By: Anika Smith on 11-27-2024 Beta globulin Elph [Mass/Vol] 1.1 g/dL 0.7-1.3 [facility] Serum or plasma calcium marv urement (mass/volume)Ordered By: Yusuf Leyva on 11-27-2024 Calcium [Mass/Vol] 9.4 mg/dL 7.6-11.0 [facility] Serum or plasma gamma globul in measurement by electrophoresis (mass/volume)Ordered By: Anika Smith on 11-27-2024 Gamma globulin Elph [Mass/Vol] 1.2 g/dL 0.4-1.8 [facility] Serum or plasma immunoelectr ophoresis interpretation (nominal result)Ordered By: Anika Smith on 11-27-2024 Interpretation IEP [Interp] Comment High . 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 PLEASE NOTE: Samples from patients receiving DARZALEX(R)(daratumumab) or SARCLISA(R)(isatuximab-irfc) treatmentcan appear as an IgG kappa and mask a complete response(CR). If this patient is receiving these therapies, thisIFE assay interference can be removed by ordering testnumber [id number]-Tjmeamrpoppoxx, Daratumumab-Specific,Serum or [id number]-Yhmicbokmbvtay, Isatuximab-Specific,Serum and submitting a new sample for testing or bycalling the lab to add this test to the current sample. Serum or plasma immunoglobul in kappa light chains measurement (mass/volume)Ordered By: Anika Smith on 11-27-2024 Immunoglobulin light chains.kappa [Mass/Vol] 14.0 mg/L 3.3-19.4 [facility] Serum or plasma protein marv urement (mass/volume)Ordered By: Anika Smith on 11-27-2024 Protein [Mass/Vol] 6.9 g/dL 6.0-8.5 [facility] Serum or plasma urea nitroge n measurement (mass/volume)Ordered By: Yusuf Leyva on 11-27-2024 Urea nitrogen [Mass/Vol] 17 mg/dL 4-19 [facility] Sodium levelOrdered By: Semaj Leyva on 11-27-2024 Sodium [Moles/Vol] 139 mmol/L 133-145 [facility] Total proteinOrdered By: Faustino Leyva on 11-27-2024 Protein [Mass/Vol] 7.3 g/dL 5.9-8.4 [facility] White blood cell (WBC) count Ordered By: Yusuf Leyva on 11-27-2024 WBC (Bld) [#/Vol] 4.3 10*3/uL Low 4.4-11.0 [facility] Absolute lymphocyte countOrd ered By: Anika Smith on 11-20-2024 Lymphocytes Auto (Unsp spec) [#/Vol] 1.43 10*3/uL 0.83-4.51 [facility] Absolute neutrophil countOrd ered By: Anika Smith on 11-20-2024 Neutrophils (Bld) [#/Vol] 0.7 10*3/uL Low 2.0-7.7 [facility] Automated lymphocyte count a s percentage of total leukocytesOrdered By: Anika Smith on 11-20-2024 Lymphocytes/100 WBC Auto (Unsp spec) 41.2 % High 19-41 [facility] Basophil percentageOrdered B y: Anika Smith on 11-20-2024 Basophils/100 WBC (Bld) 2.0 % High 0-1 [facility] CBC W/Diff, Automatedon PLT EST SLT DEC Normal ADEQ [facility] Comment on above: Performed By: #### L 100.0100 ####[facility] [address] [place], [address] Eosinophil percentageOrdered By: Anika Smith on 11-20-2024 Eosinophils/100 WBC (Bld) 25.4 % High 0-5 [facility] Erythrocyte distribution wid th ratioOrdered By: [facility] on [facility]-2024 Erythrocyte distribution width (RBC) [Ratio] 14.9 % High 11.6-14.6 [facility] Erythrocyte distribution wid th standard deviationOrdered By: [facility] Sarah on 11-20-2024 Erythrocyte distribution width (RBC) [Ratio] 49.2 fl High 35.1-43.9 [facility] Hematocrit Auto (Bld) [Volum e fraction]Ordered By: Anika Smith on 11-20-2024 Hematocrit (Bld) [Volume fraction] 33.1 % Low 37-47 [facility] Hemoglobin measurementOrdere d By: Anika mSith on 11-20-2024 Hemoglobin (Bld) [Mass/Vol] 10.5 g/dL Low 12.0-15.0 [facility] Immature granulocytes/100 WB C Auto (Bld)Ordered By: Anika Smith on 11-20-2024 Immature granulocytes/100 WBC (Bld) 0.300 % 0.0-0.9 [facility] Comment on above: IG% - Immature Granu locytes (promyelocytes, myelocytes and metamyelocytes) > 1% indicates that a LEFT SHIFT is Present. MCV (mean corpuscular volume ) determinationOrdered By: Anika Smith on 11-20-2024 MCV (RBC) [Entitic vol] 91.9 fL 81-99 [facility] Mean corpuscular hemoglobin (MCH) determinationOrdered By: Anika PiñaSarah on 11-20-2024 MCH (RBC) [Entitic mass] 29.2 pg 27.0-32.0 [facility] Mean corpuscular hemoglobin concentration (MCHC) determinationOrdered By: Anika PiñaSarah on 11-20-2024 MCHC (RBC) [Mass/Vol] 31.7 g/dL Low 32-36 [facility] Mean platelet volume determi nationOrdered By: Anika Smith on 11-20-2024 Platelet mean volume (Bld) [Entitic vol] 11.6 fL 6.2-12.0 [facility] Monocyte percentageOrdered B y: Anika Smith on 11-20-2024 Monocytes/100 WBC (Bld) 11.2 % High 0-10 [facility] Neutrophil percentageOrdered By: Anika Smith on 11-20-2024 Neutrophils/100 WBC (Bld) 19.9 % Low 47-70 [facility] Nucleated red blood cell per centageOrdered By: Anika Smith on 11-20-2024 Nucleated RBC/100 WBC (Bld) [Ratio] 0 % 0-5 [facility] Oncology Visit Reporton 07-0 Oncology Visit Report Normal [facility] Platelet countOrdered By: Yefri Smith on 11-20-2024 Platelets (Bld) [#/Vol] 149 10*3/uL Low 150-450 [facility] Platelet estimateOrdered By: Anika Smith on 11-20-2024 Platelets LM Ql (Bld) SLT DEC ADEQ [facility] RBC Auto (Bld) [#/Vol]Ordere d By: Anika PiñaSarah on 11-20-2024 RBC (Bld) [#/Vol] 3.60 10*6/uL Low 4.2-5.4 [facility] White blood cell (WBC) count Ordered By: Anika Smith on 11-20-2024 WBC (Bld) [#/Vol] 3.5 10*3/uL Low 4.4-11.0 [facility] GAYLE + Protein Elect, Serumon 11-01-2024 Albumin [Mass/Vol] 3.4 g/dL Normal 2.9-4.4 [facility] Comment on above: Order Comment: N Performed By: #### L 3100.3425, L3130.0010 ####[facility] [address] [place], [address] Albumin/Globulin [Mass ratio] 1.0 {ratio} Normal 0.7-1.7 [facility] Comment on above: Order Comment: N Performed By: #### L 3100.3425, L3130.0010 ####[facility] [address] [place], [address] QOPXL-9-ZATN 0.3 g/dL Normal 0.0-0.4 [facility] Comment on above: Order Comment: N Performed By: #### L 3100.3425, L3130.0010 ####[facility] [address] [place], [address] YEPVQ-4-WRXS 0.9 g/dL Normal 0.4-1.0 [facility] Comment on above: Order Comment: N Performed By: #### L 3100.3425, L3130.0010 ####[facility] [address] [place], [address] BETA GLOBULIN 1.1 g/dL Normal 0.7-1.3 [facility] Comment on above: Order Comment: N Performed By: #### L 3100.3425, L3130.0010 ####[facility] [address] [place], [address] GAMMA GLOBULIN 1.3 g/dL Normal 0.4-1.8 [facility] Comment on above: Order Comment: N Performed By: #### L 3100.3425, L3130.0010 ####[facility] [address] [place], [address] Globulin (S) [Mass/Vol] 3.6 g/dL Normal 2.2-3.9 [facility] Comment on above: Order Comment: N Performed By: #### L 3100.3425, L3130.0010 ####[facility] [address] [place], [address] GAYLE RESULT,S Comment Abnormal . 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 PLEASE NOTE: Samples from patients receiving DARZALEX(R)(daratumumab) or SARCLISA(R)(isatuximab-irfc) treatmentcan appear as an IgG kappa and mask a complete response(CR). If this patient is receiving these therapies, thisIFE assay interference can be removed by ordering testnumber [id number], Daratumumab-Specific,Serum or [id number]-Nmebbudyexnckr, Isatuximab-Specific,Serum and submitting a new sample for testing or bycalling the lab to add this test to the current sample. Performed By: #### L 3100.3425, L3130.0010 ####[facility] [address] [place], [address] IMMUNOGLOB A QN 32 mg/dL Low 64-422 [facility] Comment on above: Order Comment: N Result Comment: Resu lt confirmed on concentration. Performed By: #### L 3100.3425, L3130.0010 ####[facility] [address] [place], [address] IMMUNOGLOB G QN 1385 mg/dL Normal 586-1602 [facility] Comment on above: Order Comment: N Performed By: #### L 3100.3425, L3130.0010 ####[facility] [address] [place], [address] IMMUNOGLOB M QN 20 mg/dL Low 26-217 [facility] Comment on above: Order Comment: N Result Comment: Resu lt confirmed on concentration. Performed By: #### L 3100.3425, L3130.0010 ####[facility] [address] [place], [address] M-Adolfo 1.0 g/dL Abnormal Not Observed [facility] Comment on above: Order Comment: N Performed By: #### L 3100.3425, L3130.0010 ####[facility] [address] [place], [address] NOTE: Comment Normal . [facility] Comment on above: Order Comment: N Result Comment: Prot ein electrophoresis scan will follow via computer,mail, or massage operator delivery. Performed By: #### L 3100.3425, L3130.0010 ####[facility] [address] [place], [address] Protein [Mass/Vol] 7.0 g/dL Normal 6.0-8.5 [facility] Comment on above: Order Comment: N Performed By: #### L 3100.3425, L3130.0010 ####[facility] [address] [place], [address] [place] [employer] Chainson 11-01-2024 FR KAPPA LT CHN 13.3 mg/L Normal 3.3-19.4 [facility] Comment on above: Performed By: #### L 3100.3425, L3130.0010 ####[facility] [address] [place], [address] FR LAMBDA LT CH 10.9 mg/L Normal 5.7-26.3 [facility] Comment on above: Performed By: #### L 3100.3425, L3130.0010 ####[facility] [address] [place], [address] KAPPA/LAMBDA % 1.22 Normal 0.26-1.65 [facility] Comment on above: Result Comment: Perf ormed at: - [facility] [address] [id number] Director: Chris Amos PhD, Phone: [phone] Performed By: #### L 3100.7212, L3130.0010 ####[facility] [address] [place], [place], [address] Absolute lymphocyte countOrd ered By: [facility] 10-30-[facility]24 Lymphocytes Auto (Unsp spec) [#/Vol] 1.47 10*3/uL 0.83-4.51 [facility] Absolute neutrophil countOrd ered By: [facility] on 10-30-2024 Neutrophils (Bld) [#/Vol] 2.4 10*3/uL 2.0-7.7 [facility] Albumin Elph [Mass/Vol]Order ed By: Anika Smith on 10-30-2024 Albumin [Mass/Vol] 3.4 g/dL 2.9-4.4 [facility] Anion gap in Serum or Plasma Ordered By: Yusuf Leyva on 10-30-2024 Anion gap [Moles/Vol] 10 mmol/L 5-15 [facility] Automated lymphocyte count a s percentage of total leukocytesOrdered By: [facility] on 10-30-2024 Lymphocytes/100 WBC Auto (Unsp spec) 32.3 % 19-41 [facility] BUN/creatinine ratioOrdered By: [facility] on 10-30-2024 Urea nitrogen/Creatinine [Mass ratio] 23.8 mg/mg High 10-20 [facility] Basophil percentageOrdered B y: Yusuf Leyva on 10-30-2024 Basophils/100 WBC (Bld) 2.4 % High 0-1 [facility] Bilirubin, totalOrdered By: Yusuf Leyva on 10-30-2024 Bilirubin [Mass/Vol] 0.42 mg/dL 0.00-1.30 [facility] CBC W/Diff, Automatedon 10-21 Absolute Lymph 1.47 X10 3/uL Normal 0.83-4.51 [facility] Comment on above: Performed By: #### L 100.0100, L500.4050 ####[facility] [address] [place], [address] Absolute Neut 2.4 X10 3/uL Normal 2.0-7.7 [facility] Comment on above: Performed By: #### L 100.0100, L500.4050 ####[facility] [address] [place], [address] Basophils/100 WBC (Bld) 2.4 % High 0-1 [facility] Comment on above: Performed By: #### L 100.0100, L500.4050 ####[facility] [address] [place], [address] Eosinophils/100 WBC (Bld) 2.6 % Normal 0-5 [facility] Comment on above: Performed By: #### L 100.0100, L500.4050 ####[facility] [address] [place], [address] Erythrocyte distribution width (RBC) [Ratio] 14.9 % High 11.6-14.6 [facility] Comment on above: Performed By: #### L 100.0100, L500.4050 ####[facility] [address] [place], [address] Hematocrit (Bld) [Volume fraction] 33.8 % Low 37-47 [facility] Comment on above: Performed By: #### L 100.0100, L500.4050 ####[facility] [address] [place], [address] Hemoglobin (Bld) [Mass/Vol] 11.1 g/dL Low 12.0-15.0 [facility] Comment on above: Performed By: #### L 100.0100, L500.4050 ####[facility] [address] [place], [address] IG% 0.200 Normal 0.0-0.9 [facility] Comment on above: Result Comment: IG% - Immature Granulocytes (promyelocytes, myelocytes andmetamyelocytes) > 1% indicates that a LEFT SHIFT is Present. Performed By: #### L 100.0100, L500.4050 ####[facility] [address] [place], [address] Lymphocytes/100 WBC (Bld) 32.3 % Normal 19-41 [facility] Comment on above: Performed By: #### L 100.0100, L500.4050 ####[facility] [address] [place], [address] MCH (RBC) [Entitic mass] 29.4 pg Normal 27.0-32.0 [facility] Comment on above: Performed By: #### L 100.0100, L500.4050 ####[facility] [address] [place], [address] MCHC (RBC) [Mass/Vol] 32.8 g/dL Normal 32-36 [facility] Comment on above: Performed By: #### L 100.0100, L500.4050 ####[facility] [address] [place], [address] MCV (RBC) [Entitic vol] 89.4 fL Normal 81-99 [facility] Comment on above: Performed By: #### L 100.0100, L500.4050 ####[facility] [address] [place], [address] Monocytes/100 WBC (Bld) 9.9 % Normal 0-10 [facility] Comment on above: Performed By: #### L 100.0100, L500.4050 ####[facility] [address] [place], [address] Neutrophils/100 WBC (Bld) 52.6 % Normal 47-70 [facility] Comment on above: Performed By: #### L 100.0100, L500.4050 ####[facility] [address] [place], [address] Nucleated RBC (Bld) [#/Vol] 0 10*3/uL Normal 0-5 [facility] Comment on above: Performed By: #### L 100.0100, L500.4050 ####[facility] [address] [place], [address] Platelet mean volume (Bld) [Entitic vol] 10.4 fL Normal 6.2-12.0 [facility] Comment on above: Performed By: #### L 100.0100, L500.4050 ####[facility] [address] [place], [address] Platelets (Bld) [#/Vol] 267 10*3/uL Normal 150-450 [facility] Comment on above: Performed By: #### L 100.0100, L500.4050 ####[facility] [address] [place], [address] RBC (Bld) [#/Vol] 3.78 10*6/uL Low 4.2-5.4 [facility] Comment on above: Performed By: #### L 100.0100, L500.4050 ####[facility] [address] [place], [address] RDW SD 47.9 fl High 35.1-43.9 [facility] Comment on above: Performed By: #### L 100.0100, L500.4050 ####[facility] [address] [place], [address] WBC (Bld) [#/Vol] 4.6 10*3/uL Normal 4.4-11.0 [facility] Comment on above: Performed By: #### L 100.0100, L500.4050 ####[facility] [address] [place], [address] Carbon dioxide, total [Moles /volume] in Central venous bloodOrdered By: Yusuf Leyva on 10-30-2024 CO2 [Moles/Vol] 22.7 mmol/L 21.0-32.0 [facility] Chloride assayOrdered By: Frederick Leyva on 10-30-2024 Chloride [Moles/Vol] 105 mmol/L 98-108 [facility] Comprehensive Metabolic Prof ilon 10-30-2024 Albumin [Mass/Vol] 4.1 g/dL Normal 3.4-4.8 [facility] Comment on above: Performed By: #### L 100.0100, L500.4050 ####[facility] [address] [place], [address] Albumin/Globulin [Mass ratio] 1.2 {ratio} Normal 0.9-2.4 [facility] Comment on above: Performed By: #### L 100.0100, L500.4050 ####[facility] [address] [place], [address] ALK PHOS 97 U/L Normal 35-104 [facility] Comment on above: Performed By: #### L 100.0100, L500.4050 ####[facility] [address] [place], [address] ALT [Catalytic activity/Vol] 13 U/L Normal <=34 [facility] Comment on above: Performed By: #### L 100.0100, L500.4050 ####[facility] [address] [place], [address] AST [Catalytic activity/Vol] 18 U/L Normal <=31 [facility] Comment on above: Performed By: #### L 100.0100, L500.4050 ####[facility] [address] [place], [address] Bilirubin [Mass/Vol] 0.42 mg/dL Normal 0.00-1.30 [facility] Comment on above: Performed By: #### L 100.0100, L500.4050 ####[facility] [address] [place], [address] BUN/CRE 23.8 RATIO High 10-20 [facility] Comment on above: Performed By: #### L 100.0100, L500.4050 ####[facility] [address] [place], [address] Calcium [Mass/Vol] 9.5 mg/dL Normal 7.6-11.0 [facility] Comment on above: Performed By: #### L 100.0100, L500.4050 ####[facility] [address] [place], [address] Chloride [Moles/Vol] 105 mmol/L Normal 98-108 [facility] Comment on above: Performed By: #### L 100.0100, L500.4050 ####[facility] [address] [place], [address] CO2 [Moles/Vol] 22.7 mmol/L Normal 21.0-32.0 [facility] Comment on above: Performed By: #### L 100.0100, L500.4050 ####[facility] [address] [place], [address] Creatinine [Mass/Vol] 0.73 mg/dL Normal 0.70-1.20 [facility] Comment on above: Performed By: #### L 100.0100, L500.4050 ####[facility] [address] [place], [address] ECRCL 52.92 ml/min Normal 50-250 [facility] Comment on above: Performed By: #### L 100.0100, L500.4050 ####[facility] [address] [place], [address] GAP 10 Normal 5-15 [facility] Comment on above: Performed By: #### L 100.0100, L500.4050 ####[facility] [address] [place], [address] GFR/1.73 sq M.predicted among non-blacks MDRD (S/P/Bld) [Vol rate/Area] 87 mL/min/{1.73_m2} Normal >60 [facility] Comment on above: Result Comment: mL/m in/1.73m2 CKD-EPI Creatinine Equation (2020) Performed By: #### L 100.0100, L500.4050 ####[facility] [address] [place], [address] Globulin (S) [Mass/Vol] 3.5 g/dL Normal 2.2-4.2 [facility] Comment on above: Performed By: #### L 100.0100, L500.4050 ####[facility] [address] [place], [address] Glucose [Mass/Vol] 106 mg/dL High 70-99 [facility] Comment on above: Performed By: #### L 100.0100, L500.4050 ####[facility] [address] [place], [address] Potassium [Moles/Vol] 4.2 mmol/L Normal 3.3-5.1 [facility] Comment on above: Performed By: #### L 100.0100, L500.4050 ####[facility] [address] [place], [address] Sodium [Moles/Vol] 138 mmol/L Normal 133-145 [facility] Comment on above: Performed By: #### L 100.0100, L500.4050 ####[facility] [address] [place], [address] T PROT 7.5 g/dL Normal 5.9-8.4 [facility] Comment on above: Performed By: #### L 100.0100, L500.4050 ####[facility] [address] [place], [address] Urea nitrogen [Mass/Vol] 17 mg/dL Normal 4-19 [facility] Comment on above: Performed By: #### L 100.0100, L500.4050 ####[facility] [address] [place], [address] Eosinophil percentageOrdered By: Yusuf Leyva on 10-30-2024 Eosinophils/100 WBC (Bld) 2.6 % 0-5 [facility] Erythrocyte distribution wid th ratioOrdered By: Yusuf Leyva on 10-30-2024 Erythrocyte distribution width (RBC) [Ratio] 14.9 % High 11.6-14.6 [facility] Erythrocyte distribution wid th standard deviationOrdered By: [facility] on 10-30-2024 Erythrocyte distribution width (RBC) [Ratio] 47.9 fl High 35.1-43.9 [facility] Glomerular filtration rate ( GFR) estimation/1.73 sq m using serum, plasma, or whole bOrdered By: Yusuf Leyva on 10-30-2024 GFR/1.73 sq M.predicted among non-blacks MDRD (S/P/Bld) [Vol rate/Area] 87 mL/min/{1.73_m2} >60 [facility] Comment on above: mL/min/1.73m2 CKD-EP I Creatinine Equation (2020) Hematocrit Auto (Bld) [Volum e fraction]Ordered By: Yusuf Leyva on 10-30-2024 Hematocrit (Bld) [Volume fraction] 33.8 % Low 37-47 [facility] Hemoglobin measurementOrdere d By: Yusuf Leyva on 10-30-2024 Hemoglobin (Bld) [Mass/Vol] 11.1 g/dL Low 12.0-15.0 [facility] Immature granulocytes/100 WB C Auto (Bld)Ordered By: Yusuf Leyva on 10-30-2024 Immature granulocytes/100 WBC (Bld) 0.200 % 0.0-0.9 [facility] Comment on above: IG% - Immature Granu locytes (promyelocytes, myelocytes and metamyelocytes) > 1% indicates that a LEFT SHIFT is Present. Interpretation of serum or p lasma protein pattern by immunofixation (narrative resultOrdered By: Anika Smith on 10-30-2024 Protein Fractions Immunofixation Ulisses [Interp] 1.0 g/dL High Not Observed [facility] Laboratory - Chemistry and C hemistry - challengeOrdered By: Yusuf Leyva on 10-30-2024 AST [Catalytic activity/Vol] 18 U/L <32 [facility] MCV (mean corpuscular volume ) determinationOrdered By: Yusuf Leyva on 10-30-2024 MCV (RBC) [Entitic vol] 89.4 fL 81-99 [facility] Magnesiumon 10-30-2024 Magnesium [Mass/Vol] 1.8 mg/dL Normal 1.5-2.2 [facility] Comment on above: Order Comment: ADD O N MG FROM EARLIER TODAY, THANK YOU Performed By: #### L 501.5200 ####[facility] [address] [place], [address] Magnesium measurement (mass/ volume)Ordered By: Anika Smith on 10-30-2024 Magnesium (Unsp spec) [Mass/Vol] 1.8 mg/dL 1.5-2.2 [facility] Mean corpuscular hemoglobin (MCH) determinationOrdered By: Yusuf Leyva on 10-30-2024 MCH (RBC) [Entitic mass] 29.4 pg 27.0-32.0 [facility] Mean corpuscular hemoglobin concentration (MCHC) determinationOrdered By: Yusuf Leyva on 10-30-2024 MCHC (RBC) [Mass/Vol] 32.8 g/dL 32-36 [facility] Mean platelet volume determi nationOrdered By: Yusuf Leyva on 10-30-2024 Platelet mean volume (Bld) [Entitic vol] 10.4 fL 6.2-12.0 [facility] Monocyte percentageOrdered B y: Yusuf Leyva on 10-30-2024 Monocytes/100 WBC (Bld) 9.9 % 0-10 [facility] Neutrophil percentageOrdered By: Yusuf Leyva on 10-30-2024 Neutrophils/100 WBC (Bld) 52.6 % 47-70 [facility] No Panel InformationOrdered By: Anika Smith on 10-30-2024 Addendum Document Comment . [facility] Comment on above: Protein electrophore sis scan will follow via computer,mail, or massage operator delivery. Nucleated red blood cell per centageOrdered By: Yusuf Leyva on 10-30-2024 Nucleated RBC/100 WBC (Bld) [Ratio] 0 % 0-5 [facility] Oncology Visit Reporton 10-21 Oncology Visit Report Normal [facility] Platelet countOrdered By: Frederick Leyva on 10-30-2024 Platelets (Bld) [#/Vol] 267 10*3/uL 150-450 [facility] Potassium measurement (mass/ volume)Ordered By: Yusuf Leyva on 10-30-2024 Potassium (Unsp spec) [Mass/Vol] 4.2 mmol/L 3.3-5.1 [facility] RBC Auto (Bld) [#/Vol]Ordere d By: Yusuf Leyva on 10-30-2024 RBC (Bld) [#/Vol] 3.78 10*6/uL Low 4.2-5.4 [facility] Serum creatinine measurement (mass/volume)Ordered By: Yusuf Leyva on 10-30-2024 Creatinine [Mass/Vol] 0.73 mg/dL 0.70-1.20 [facility] Serum globulin measurementOr dered By: Yusuf Leyva on 10-30-2024 Globulin (S) [Mass/Vol] 3.5 g/dL 2.2-4.2 [facility] Serum globulin measurement ( mass/volume)Ordered By: Anika Smith on 10-30-2024 Globulin (S) [Mass/Vol] 3.6 g/dL 2.2-3.9 [facility] Serum glucose measurement (m ass/volume)Ordered By: Yusuf Leyva on 10-30-2024 Glucose [Mass/Vol] 106 mg/dL High 70-99 [facility] Serum immunoglobulin kappa l ight chains/immunoglobulin lambda light chains mass ratioOrdered By: Anika Smith on 10-30-2024 Immunoglobulin light chains.kappa/Immunoglob ulin light chains.lambda (S) [Mass ratio] 1.22 0.26-1.65 [facility] Comment on above: Performed at: [address] [id number] Director: Chris Amos PhD, Phone: [phone] Serum or plasma IgA measurem ent (mass/volume)Ordered By: Anika Smith on 10-30-2024 IgA [Mass/Vol] 32 mg/dL Low 64-422 [facility] Comment on above: Result confirmed on concentration. Serum or plasma IgG measurem ent (mass/volume)Ordered By: Anika Smith on 10-30-2024 IgG [Mass/Vol] 1385 mg/dL [id number] [facility] Serum or plasma alanine oliveira otransferase (ALT) measurementOrdered By: Yusuf Leyva on 10-30-2024 ALT [Catalytic activity/Vol] 13 U/L <35 [facility] Serum or plasma albumin marv urement (mass/volume)Ordered By: Yusuf Leyva on 10-30-2024 Albumin [Mass/Vol] 4.1 g/dL 3.4-4.8 [facility] Serum or plasma albumin/glob ulin mass ratioOrdered By: Yusuf Leyva on 10-30-2024 Albumin/Globulin [Mass ratio] 1.2 {ratio} 0.9-2.4 [facility] Serum or plasma alkaline milla sphatase measurementOrdered By: Yusuf Leyva on 10-30-2024 ALP [Catalytic activity/Vol] 97 U/L 35-104 [facility] Serum or plasma alpha 1 glob ulin measurement by electrophoresis (mass/volume)Ordered By: Anika Smith on 10-30-2024 Alpha 1 globulin Elph [Mass/Vol] 0.3 g/dL 0.0-0.4 [facility] Alpha 1 globulin Elph [Mass/Vol] 0.9 g/dL 0.4-1.0 [facility] Serum or plasma beta globuli n measurement by electrophoresis (mass/volume)Ordered By: Anika Smith on 10-30-2024 Beta globulin Elph [Mass/Vol] 1.1 g/dL 0.7-1.3 [facility] Serum or plasma calcium marv urement (mass/volume)Ordered By: Yusuf Leyva on 10-30-2024 Calcium [Mass/Vol] 9.5 mg/dL 7.6-11.0 [facility] Serum or plasma gamma globul in measurement by electrophoresis (mass/volume)Ordered By: Anika Smith on 10-30-2024 Gamma globulin Elph [Mass/Vol] 1.3 g/dL 0.4-1.8 [facility] Serum or plasma immunoelectr ophoresis interpretation (nominal result)Ordered By: Anika Smith on 10-30-2024 Interpretation IEP [Interp] Comment High . 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 PLEASE NOTE: Samples from patients receiving DARZALEX(R)(daratumumab) or SARCLISA(R)(isatuximab-[facility]) treatmentcan appear as an IgG kappa and mask a complete response(CR). If this patient is receiving these therapies, thisIFE assay interference can be removed by ordering testnumber [id number], Daratumumab-Specific,Serum or [id number], Isatuximab-Specific,Serum and submitting a new sample for testing or bycalling the lab to add this test to the current sample. Serum or plasma immunoglobul in kappa light chains measurement (mass/volume)Ordered By: Anika Smith on 10-30-2024 Immunoglobulin light chains.kappa [Mass/Vol] 13.3 mg/L 3.3-19.4 [facility] Serum or plasma protein mavr urement (mass/volume)Ordered By: Anika Smith on 10-30-2024 Protein [Mass/Vol] 7.0 g/dL 6.0-8.5 [facility] Serum or plasma urea nitroge n measurement (mass/volume)Ordered By: Yusuf Leyva on 10-30-2024 Urea nitrogen [Mass/Vol] 17 mg/dL 4-19 [facility] Sodium levelOrdered By: Semaj ayesha Gordon on 10-30-2024 Sodium [Moles/Vol] 138 mmol/L 133-145 [facility] Total proteinOrdered By: Faustino amaya Gordon on 10-30-2024 Protein [Mass/Vol] 7.5 g/dL 5.9-8.4 [facility] White blood cell (WBC) count Ordered By: Yusuf Leyva on 10-30-2024 WBC (Bld) [#/Vol] 4.6 10*3/uL 4.4-11.0 [facility] Absolute lymphocyte countOrd ered By: Anika Smith on 10-23-2024 Lymphocytes Auto (Unsp spec) [#/Vol] 1.62 10*3/uL 0.83-4.51 [facility] Absolute neutrophil countOrd ered By: Anika Smith on 10-23-2024 Neutrophils (Bld) [#/Vol] 1.1 10*3/uL Low 2.0-7.7 [facility] Anion gap in Serum or Plasma Ordered By: Anika Smith on 10-23-2024 Anion gap [Moles/Vol] 10 mmol/L 5-15 [facility] Automated lymphocyte count a s percentage of total leukocytesOrdered By: Anika Smith on 10-23-2024 Lymphocytes/100 WBC Auto (Unsp spec) 46.6 % High 19-41 [facility] BUN/creatinine ratioOrdered By: Anika Smith on 10-23-2024 Urea nitrogen/Creatinine [Mass ratio] 13.5 mg/mg 10- [facility] Basic Metabolic Profile (BMP )on 10-23-2024 BUN/CRE 13.5 RATIO Normal - [facility] Comment on above: Performed By: #### L 100.0100, L500.2500 ####[facility] [address] [place], [place], [id number] Calcium [Mass/Vol] 9.0 mg/dL Normal 7.6-11.0 [facility] Comment on above: Performed By: #### L 100.0100, L500.2500 ####[facility] [address] [place], [address] Chloride [Moles/Vol] 101 mmol/L Normal 98-108 [facility] Comment on above: Performed By: #### L 100.0100, L500.2500 ####[facility] [address] [place], [address] CO2 [Moles/Vol] 25.5 mmol/L Normal 21.0-32.0 [facility] Comment on above: Performed By: #### L 100.0100, L500.2500 ####[facility] [address] [place], [address] Creatinine [Mass/Vol] 0.84 mg/dL Normal 0.70-1.20 [facility] Comment on above: Performed By: #### L 100.0100, L500.2500 ####[facility] [address] [place], [address] ECRCL 50.45 ml/min Normal 50-250 [facility] Comment on above: Performed By: #### L 100.0100, L500.2500 ####[facility] [address] [place], [address] GAP 10 Normal 5-15 [facility] Comment on above: Performed By: #### L 100.0100, L500.2500 ####[facility] [address] [place], [address] GFR/1.73 sq M.predicted among non-blacks MDRD (S/P/Bld) [Vol rate/Area] 73 mL/min/{1.73_m2} Normal >60 [facility] Comment on above: Result Comment: mL/m in/1.73m2 CKD-EPI Creatinine Equation (2020) Performed By: #### L 100.0100, L500.2500 ####[facility] [address] [place], [address] Glucose [Mass/Vol] 105 mg/dL High 70-99 [facility] Comment on above: Performed By: #### L 100.0100, L500.2500 ####[facility] [address] [place], [address] Potassium [Moles/Vol] 3.6 mmol/L Normal 3.3-5.1 [facility] Comment on above: Performed By: #### L 100.0100, L500.2500 ####[facility] [address] [place], [address] Sodium [Moles/Vol] 136 mmol/L Normal 133-145 [facility] Comment on above: Performed By: #### L 100.0100, L500.2500 ####[facility] [address] [place], [address] Urea nitrogen [Mass/Vol] 11 mg/dL Normal 4-19 [facility] Comment on above: Performed By: #### L 100.0100, L500.2500 ####[facility] [address] [place], [address] Basophil percentageOrdered B y: Anika Smith on 10-23-2024 Basophils/100 WBC (Bld) 1.4 % High 0-1 [facility] CBC W/Diff, Automatedon 06-0 Absolute Lymph 1.62 X10 3/uL Normal 0.83-4.51 [facility] Comment on above: Performed By: #### L 100.0100, L500.2500 ####[facility] [address] [place], [address] Absolute Neut 1.1 X10 3/uL Low 2.0-7.7 [facility] Comment on above: Performed By: #### L 100.0100, L500.2500 ####[facility] [address] [place], [address] Basophils/100 WBC (Bld) 1.4 % High 0-1 [facility] Comment on above: Performed By: #### L 100.0100, L500.2500 ####[facility] [address] [place], [address] Eosinophils/100 WBC (Bld) 9.5 % High 0-5 [facility] Comment on above: Performed By: #### L 100.0100, L500.2500 ####[facility] [address] [place], [address] Erythrocyte distribution width (RBC) [Ratio] 14.4 % Normal 11.6-14.6 [facility] Comment on above: Performed By: #### L 100.0100, L500.2500 ####[facility] [address] [place], [address] Hematocrit (Bld) [Volume fraction] 32.5 % Low 37-47 [facility] Comment on above: Performed By: #### L 100.0100, L500.2500 ####[facility] [address] [place], [address] Hemoglobin (Bld) [Mass/Vol] 10.9 g/dL Low 12.0-15.0 [facility] Comment on above: Performed By: #### L 100.0100, L500.2500 ####[facility] [address] [place], [address] IG% 0.300 Normal 0.0-0.9 [facility] Comment on above: Result Comment: IG% - Immature Granulocytes (promyelocytes, myelocytes andmetamyelocytes) > 1% indicates that a LEFT SHIFT is Present. Performed By: #### L 100.0100, L500.2500 ####[facility] [address] [place], [address] Lymphocytes/100 WBC (Bld) 46.6 % High 19-41 [facility] Comment on above: Performed By: #### L 100.0100, L500.2500 ####[facility] [address] [place], [address] MCH (RBC) [Entitic mass] 29.8 pg Normal 27.0-32.0 [facility] Comment on above: Performed By: #### L 100.0100, L500.2500 ####[facility] [address] [place], [address] MCHC (RBC) [Mass/Vol] 33.5 g/dL Normal 32-36 [facility] Comment on above: Performed By: #### L 100.0100, L500.2500 ####[facility] [address] [place], [address] MCV (RBC) [Entitic vol] 88.8 fL Normal 81-99 [facility] Comment on above: Performed By: #### L 100.0100, L500.2500 ####[facility] [address] [place], [address] Monocytes/100 WBC (Bld) 9.8 % Normal 0-10 [facility] Comment on above: Performed By: #### L 100.0100, L500.2500 ####[facility] [address] [place], [address] Neutrophils/100 WBC (Bld) 32.4 % Low 47-70 [facility] Comment on above: Performed By: #### L 100.0100, L500.2500 ####[facility] [address] [place], [address] Nucleated RBC (Bld) [#/Vol] 0 10*3/uL Normal 0-5 [facility] Comment on above: Performed By: #### L 100.0100, L500.2500 ####[facility] [address] [place], [address] Platelet mean volume (Bld) [Entitic vol] 11.2 fL Normal 6.2-12.0 [facility] Comment on above: Performed By: #### L 100.0100, L500.2500 ####[facility] [address] [place], [address] Platelets (Bld) [#/Vol] 219 10*3/uL Normal 150-450 [facility] Comment on above: Performed By: #### L 100.0100, L500.2500 ####[facility] [address] [place], [address] RBC (Bld) [#/Vol] 3.66 10*6/uL Low 4.2-5.4 [facility] Comment on above: Performed By: #### L 100.0100, L500.2500 ####[facility] [address] [place], [address] RDW SD 46.1 fl High 35.1-43.9 [facility] Comment on above: Performed By: #### L 100.0100, L500.2500 ####[facility] [address] [place], [address] WBC (Bld) [#/Vol] 3.5 10*3/uL Low 4.4-11.0 [facility] Comment on above: Performed By: #### L 100.0100, L500.2500 ####[facility] [address] [place], [address] Carbon dioxide, total [Moles /volume] in Central venous bloodOrdered By: Anika Smith on 10-23-2024 CO2 [Moles/Vol] 25.5 mmol/L 21.0-32.0 [facility] Chloride assayOrdered By: Yefri Smith on 10-23-2024 Chloride [Moles/Vol] 101 mmol/L 98-108 [facility] Eosinophil percentageOrdered By: Anika Smith on 10-23-2024 Eosinophils/100 WBC (Bld) 9.5 % High 0-5 [facility] Erythrocyte distribution wid th ratioOrdered By: Ainka Smith on 10-23-2024 Erythrocyte distribution width (RBC) [Ratio] 14.4 % 11.6-14.6 [facility] Erythrocyte distribution wid th standard deviationOrdered By: Anika Smith on 10-23-2024 Erythrocyte distribution width (RBC) [Ratio] 46.1 fl High 35.1-43.9 [facility] Glomerular filtration rate ( GFR) estimation/1.73 sq m using serum, plasma, or whole bOrdered By: Anika Smith on 10-23-2024 GFR/1.73 sq M.predicted among non-blacks MDRD (S/P/Bld) [Vol rate/Area] 73 mL/min/{1.73_m2} >60 [facility] Comment on above: mL/min/1.73m2 CKD-EP I Creatinine Equation (2020) Hematocrit Auto (Bld) [Volum e fraction]Ordered By: [facility]-2024 Hematocrit (Bld) [Volume fraction] 32.5 % Low 37-47 [facility] Hemoglobin measurementOrdere d By: Anika Smith on 10-23-2024 Hemoglobin (Bld) [Mass/Vol] 10.9 g/dL Low 12.0-15.0 [facility] Immature granulocytes/100 WB C Auto (Bld)Ordered By: Anika Smith on 10-23-2024 Immature granulocytes/100 WBC (Bld) 0.300 % 0.0-0.9 [facility] Comment on above: IG% - Immature Granu locytes (promyelocytes, myelocytes and metamyelocytes) > 1% indicates that a LEFT SHIFT is Present. MCV (mean corpuscular volume ) determinationOrdered By: Anika Smith on 10-23-2024 MCV (RBC) [Entitic vol] 88.8 fL 81-99 [facility] Mean corpuscular hemoglobin (MCH) determinationOrdered By: Anika Smith on 10-23-2024 MCH (RBC) [Entitic mass] 29.8 pg 27.0-32.0 [facility] Mean corpuscular hemoglobin concentration (MCHC) determinationOrdered By: Anika Smith on 10-23-2024 MCHC (RBC) [Mass/Vol] 33.5 g/dL 32-36 [facility] Mean platelet volume determi nationOrdered By: Anika Smith on 10-23-2024 Platelet mean volume (Bld) [Entitic vol] 11.2 fL 6.2-12.0 [facility] Monocyte percentageOrdered B y: Anika Smith on 10-23-2024 Monocytes/100 WBC (Bld) 9.8 % 0-10 [facility] Neutrophil percentageOrdered By: Anika Smith on 10-23-2024 Neutrophils/100 WBC (Bld) 32.4 % Low 47-70 [facility] Nucleated red blood cell per centageOrdered By: Anika Smith on 10-23-2024 Nucleated RBC/100 WBC (Bld) [Ratio] 0 % 0-5 [facility] Oncology Visit Reporton 06-0 Oncology Visit Report Normal [facility] Platelet countOrdered By: Yefri Smith on 10-23-2024 Platelets (Bld) [#/Vol] 219 10*3/uL 150-450 [facility] Potassium measurement (mass/ volume)Ordered By: Anika Smith on 10-23-2024 Potassium (Unsp spec) [Mass/Vol] 3.6 mmol/L 3.3-5.1 [facility] RBC Auto (Bld) [#/Vol]Ordere d By: Anika Smith on 10-23-2024 RBC (Bld) [#/Vol] 3.66 10*6/uL Low 4.2-5.4 [facility] Serum creatinine measurement (mass/volume)Ordered By: Anika Smith on 10-23-2024 Creatinine [Mass/Vol] 0.84 mg/dL 0.70-1.20 [facility] Serum glucose measurement (m ass/volume)Ordered By: Anika Smith on 10-23-2024 Glucose [Mass/Vol] 105 mg/dL High 70-99 [facility] Serum or plasma calcium marv urement (mass/volume)Ordered By: Anika Smith on 10-23-2024 Calcium [Mass/Vol] 9.0 mg/dL 7.6-11.0 [facility] Serum or plasma urea nitroge n measurement (mass/volume)Ordered By: Anika Smith on 10-23-2024 Urea nitrogen [Mass/Vol] 11 mg/dL 4-19 [facility] Sodium levelOrdered By: Anika Smith on 10-23-2024 Sodium [Moles/Vol] 136 mmol/L 133-145 [facility] White blood cell (WBC) count Ordered By: Anika Smith on 10-23-2024 WBC (Bld) [#/Vol] 3.5 10*3/uL Low 4.4-11.0 [facility] HEMOGLOBIN A1c WITH eAGon eAG (mmol/L) 7.1 mmol/L Normal [facility] Comment on above: Performed By: #### 7 600, [address]455 #### [facility] [address], [address] [place], [place] [id number] Consulting Sme: Rene Mckeon MD HbA1c (Bld) [Mass fraction] 6.1 % High <5.7 [facility] Comment on above: Result Comment: For someone without known diabetes, a hemoglobin A1c value between 5.7% and 6.4% is consistent with prediabetes and should be confirmed with a follow-up test. For someone with known diabetes, a value <7% indicates that their diabetes is well controlled. A1c targets should be individualized based on duration of diabetes, age, comorbid conditions, and other considerations. This assay result is consistent with an increased risk of diabetes. Currently, no consensus exists regarding use of hemoglobin A1c for diagnosis of diabetes for children. Performed By: #### 7 600, 83643 #### [facility] [address], [address] [place], [place] [id number] Consulting Sme: Rene Mckeon MD Magnesium [Mass/Vol] 128 mg/dL Normal [facility] Comment on above: Performed By: #### 7 600, 28142 #### [facility] [address], [address] [place] [address] Consulting Sme: Rene Mckeon MD LIPID PANEL, [facility] 09-21 Cholesterol [Mass/Vol] 127 mg/dL Normal <200 [facility] Comment on above: Order Comment: FASTI NG:YES FASTING: YES Performed By: #### 7 600, 48431 #### [facility] [address], [address] [place] [address] Consulting Sme: Rene Mckeon MD Cholesterol in HDL [Mass/Vol] 52 mg/dL Normal > OR = 50 [facility] Comment on above: Order Comment: FASTI NG:YES FASTING: YES Performed By: #### 7 600, 74809 #### [facility] [address], [address] [place] [address] Consulting Sme: Rene Mckeon MD Cholesterol in LDL [Mass/Vol] 58 mg/dL Normal [facility] Comment on above: Order Comment: FASTI NG:YES FASTING: YES Result Comment: Refe rence range: <100 Desirable range <100 mg/dL for primary prevention; <70 mg/dL for patients with CHD or diabetic patients with > or = 2 CHD risk factors. LDL-C is now calculated using the Omero-Last calculation, which is a validated novel method providing better accuracy than the Friedewald equation in the estimation of LDL-C. Omero SHEPPARD et al. LINDSEY. 2013;310(19): 5141-6610 (http://education.Parametric.Wibbitz/faq/UPN430) Performed By: #### 7 600, 54435 #### [facility] [address], [address] [place] [address] Consulting Sme: Rene Mckeon MD Cholesterol.total/Kait sterol in HDL [Mass ratio] 2.4 {ratio} Normal <5.0 [facility] Comment on above: Order Comment: FASTI NG:YES FASTING: YES Performed By: #### 7 600, 03506 #### [facility] [address], [address] [place] [address] Consulting Sme: Rene Mckeon MD NON HDL CHOLESTEROL 75 mg/dL (calc) Normal <130 [facility] Comment on above: Order Comment: FASTI NG:YES FASTING: YES Result Comment: For patients with diabetes plus 1 major ASCVD risk factor, treating to a non-HDL-C goal of <100 mg/dL (LDL-C of <70 mg/dL) is considered a therapeutic option. Performed By: #### 7 600, 93165 #### [facility] [address], [address] [place] [address] Consulting Sme: Rene Mckeon MD Triglyceride [Mass/Vol] 89 mg/dL Normal <150 [facility] Comment on above: Order Comment: FASTI NG:YES FASTING: YES Performed By: #### 7 600, 50953 #### [facility] [address], [address] [place] [address] Consulting Sme: Rene Mckeon MD GAYLE + Protein Elect, Serumon 10-04-2024 Albumin [Mass/Vol] 3.6 g/dL Normal 2.9-4.4 [facility] Comment on above: Order Comment: N Performed By: #### L 3100.3425, L3130.0010 ####[facility] [address] [place], [address] Albumin/Globulin [Mass ratio] 0.9 {ratio} Normal 0.7-1.7 [facility] Comment on above: Order Comment: N Performed By: #### L 3100.3425, L3130.0010 ####[facility] [address] [place], [address] OLFOE-8-HSXA 0.2 g/dL Normal 0.0-0.4 [facility] Comment on above: Order Comment: N Performed By: #### L 3100.3425, L3130.0010 ####[facility] [address] [place], [address] RLTDN-9-ZKUO 1.0 g/dL Normal 0.4-1.0 [facility] Comment on above: Order Comment: N Performed By: #### L 3100.3425, L3130.0010 ####[facility] [address] [place], [address] BETA GLOBULIN 1.2 g/dL Normal 0.7-1.3 [facility] Comment on above: Order Comment: N Performed By: #### L 3100.3425, L3130.0010 ####[facility] [address] [place], [address] GAMMA GLOBULIN 1.7 g/dL Normal 0.4-1.8 [facility] Comment on above: Order Comment: N Performed By: #### L 3100.3425, L3130.0010 ####[facility] [address] [place], [address] Globulin (S) [Mass/Vol] 4.1 g/dL Abnormal 2.2-3.9 [facility] Comment on above: Order Comment: N Performed By: #### L 3100.3425, L3130.0010 ####[facility] [address] [place], [address] GAYLE RESULT,S Comment Abnormal . 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 PLEASE NOTE: Samples from patients receiving DARZALEX(R)(daratumumab) or SARCLISA(R)(isatuximab-[facility]) treatmentcan appear as an IgG kappa and mask a complete response(CR). If this patient is receiving these therapies, thisIFE assay interference can be removed by ordering testnumber [id number], Daratumumab-Specific,Serum or [id number], Isatuximab-Specific,Serum and submitting a new sample for testing or bycalling the lab to add this test to the current sample. Performed By: #### L 3100.3425, L3130.0010 ####[facility] [address] [place], [address] IMMUNOGLOB A QN 12 mg/dL Low 64-422 [facility] Comment on above: Order Comment: N Result Comment: Resu lt confirmed on concentration. Performed By: #### L 3100.3425, L3130.0010 ####[facility] [address] [place], [address] IMMUNOGLOB G QN 1756 mg/dL High 586-1602 [facility] Comment on above: Order Comment: N Performed By: #### L 3100.3425, L3130.0010 ####[facility] [address] [place], [address] IMMUNOGLOB M QN 9 mg/dL Low 26-217 [facility] Comment on above: Order Comment: N Result Comment: Resu lt confirmed on concentration. Performed By: #### L 3100.3425, L3130.0010 ####[facility] [address] [place], [address] M-Adolfo 1.5 g/dL Abnormal Not Observed [facility] Comment on above: Order Comment: N Performed By: #### L 3100.3425, L3130.0010 ####[facility] [address] [place], [address] NOTE: Comment Normal . [facility] Comment on above: Order Comment: N Result Comment: Prot ein electrophoresis scan will follow via computer,mail, or massage operator delivery. Performed By: #### L 3100.3425, L3130.0010 ####[facility] [address] [place], [address] Protein [Mass/Vol] 7.7 g/dL Normal 6.0-8.5 [facility] Comment on above: Order Comment: N Performed By: #### L 3100.3425, L3130.0010 ####[facility] [address] [place], [address] [place] [employer] Chainson 10-04-2024 FR KAPPA LT CHN 8.4 mg/L Normal 3.3-19.4 [facility] Comment on above: Performed By: #### L 3100.3425, L3130.0010 ####[facility] [address] [place], [place], [id number] FR LAMBDA LT CH 3.0 mg/L Abnormal 5.7-26.3 [facility] Comment on above: Performed By: #### L 3100.3425, L3130.0010 ####[facility] [address] [place], [place], [address] KAPPA/LAMBDA % 2.80 Abnormal 0.26-1.65 [facility] Comment on above: Result Comment: Perf ormed at: [facility] [place] [id number] Director: Chris Amos PhD, Phone: [phone] Performed By: #### L 3100.3425, L3130.0010 ####[facility] [address] [place], [place], [id number] Absolute lymphocyte countOrd ered By: Yusuf Leyva on 10-02-2024 Lymphocytes Auto (Unsp spec) [#/Vol] 2.35 10*3/uL 0.83-4.51 [facility] Absolute neutrophil countOrd ered By: Yusuf Leyva on 10-02-2024 Neutrophils (Bld) [#/Vol] 2.0 10*3/uL 2.0-7.7 [facility] Albumin Elph [Mass/Vol]Order ed By: Yusuf Leyva on 10-02-2024 Albumin [Mass/Vol] 3.6 g/dL 2.9-4.4 [facility] Anion gap in Serum or Plasma Ordered By: Yusuf Leyva on 10-02-2024 Anion gap [Moles/Vol] 9 mmol/L -15 [facility] Automated lymphocyte count a s percentage of total leukocytesOrdered By: Yusuf Leyva on 10-02-2024 Lymphocytes/100 WBC Auto (Unsp spec) 41.6 % High 19-41 [facility] BUN/creatinine ratioOrdered By: Yusuf Leyva on 10-02-2024 Urea nitrogen/Creatinine [Mass ratio] 28.0 mg/mg High 10-20 [facility] Basophil percentageOrdered B y: Yusuf Leyva on 10-02-2024 Basophils/100 WBC (Bld) 0.7 % 0-1 [facility] Bilirubin, totalOrdered By: Yusuf Leyva on 10-02-2024 Bilirubin [Mass/Vol] 0.41 mg/dL 0.00-1.30 [facility] CBC W/Diff, Automatedon 09-20-2024 Absolute Lymph 2.35 X10 3/uL Normal 0.83-4.51 [facility] Comment on above: Performed By: #### L 100.0100, L500.4050 ####[facility] [address] [place], [address] Absolute Neut 2.0 X10 3/uL Normal 2.0-7.7 [facility] Comment on above: Performed By: #### L 100.0100, L500.4050 ####[facility] [address] [place], [address] Basophils/100 WBC (Bld) 0.7 % Normal 0-1 [facility] Comment on above: Performed By: #### L 100.0100, L500.4050 ####[facility] [address] [place], [address] Eosinophils/100 WBC (Bld) 5.8 % High 0-5 [facility] Comment on above: Performed By: #### L 100.0100, L500.4050 ####[facility] [address] [place], [address] Erythrocyte distribution width (RBC) [Ratio] 13.9 % Normal 11.6-14.6 [facility] Comment on above: Performed By: #### L 100.0100, L500.4050 ####[facility] [address] [place], [address] Hematocrit (Bld) [Volume fraction] 36.3 % Low 37-47 [facility] Comment on above: Performed By: #### L 100.0100, L500.4050 ####[facility] [address] [place], [address] Hemoglobin (Bld) [Mass/Vol] 11.8 g/dL Low 12.0-15.0 [facility] Comment on above: Performed By: #### L 100.0100, L500.4050 ####[facility] [address] [place], [address] IG% 0.200 Normal 0.0-0.9 [facility] Comment on above: Result Comment: IG% - Immature Granulocytes (promyelocytes, myelocytes andmetamyelocytes) > 1% indicates that a LEFT SHIFT is Present. Performed By: #### L 100.0100, L500.4050 ####[facility] [address] [place], [address] Lymphocytes/100 WBC (Bld) 41.6 % High 19-41 [facility] Comment on above: Performed By: #### L 100.0100, L500.4050 ####[facility] [address] [place], [address] MCH (RBC) [Entitic mass] 29.1 pg Normal 27.0-32.0 [facility] Comment on above: Performed By: #### L 100.0100, L500.4050 ####[facility] [address] [place], [address] MCHC (RBC) [Mass/Vol] 32.5 g/dL Normal 32-36 [facility] Comment on above: Performed By: #### L 100.0100, L500.4050 ####[facility] [address] [place], [address] MCV (RBC) [Entitic vol] 89.4 fL Normal 81-99 [facility] Comment on above: Performed By: #### L 100.0100, L500.4050 ####[facility] [address] [place], [address] Monocytes/100 WBC (Bld) 16.8 % High 0-10 [facility] Comment on above: Performed By: #### L 100.0100, L500.4050 ####[facility] [address] [place], [address] Neutrophils/100 WBC (Bld) 34.9 % Low 47-70 [facility] Comment on above: Performed By: #### L 100.0100, L500.4050 ####[facility] [address] [place], [address] Nucleated RBC (Bld) [#/Vol] 0 10*3/uL Normal 0-5 [facility] Comment on above: Performed By: #### L 100.0100, L500.4050 ####[facility] [address] [place], [address] Platelet mean volume (Bld) [Entitic vol] 9.9 fL Normal 6.2-12.0 [facility] Comment on above: Performed By: #### L 100.0100, L500.4050 ####[facility] [address] [place], [address] Platelets (Bld) [#/Vol] 323 10*3/uL Normal 150-450 [facility] Comment on above: Performed By: #### L 100.0100, L500.4050 ####[facility] [address] [place], [address] RBC (Bld) [#/Vol] 4.06 10*6/uL Low 4.2-5.4 [facility] Comment on above: Performed By: #### L 100.0100, L500.4050 ####[facility] [address] [place], [address] RDW SD 44.9 fl High 35.1-43.9 [facility] Comment on above: Performed By: #### L 100.0100, L500.4050 ####[facility] [address] [place], [address] WBC (Bld) [#/Vol] 5.7 10*3/uL Normal 4.4-11.0 [facility] Comment on above: Performed By: #### L 100.0100, L500.4050 ####[facility] [address] [place], [address] Carbon dioxide, total [Moles /volume] in Central venous bloodOrdered By: Yusuf Leyva on 10-02-2024 CO2 [Moles/Vol] 24.1 mmol/L 21.0-32.0 [facility] Chloride assayOrdered By: Frederick Leyva on 10-02-2024 Chloride [Moles/Vol] 103 mmol/L 98-108 [facility] Comprehensive Metabolic Prof ilon 10-02-2024 Albumin [Mass/Vol] 4.3 g/dL Normal 3.4-4.8 [facility] Comment on above: Performed By: #### L 100.0100, L500.4050 ####[facility] [address] [place], [address] Albumin/Globulin [Mass ratio] 1.2 {ratio} Normal 0.9-2.4 [facility] Comment on above: Performed By: #### L 100.0100, L500.4050 ####[facility] [address] [place], [address] ALK PHOS 86 U/L Normal 35-104 [facility] Comment on above: Performed By: #### L 100.0100, L500.4050 ####[facility] [address] [place], [address] ALT [Catalytic activity/Vol] 21 U/L Normal <=34 [facility] Comment on above: Performed By: #### L 100.0100, L500.4050 ####[facility] [address] [place], [address] AST [Catalytic activity/Vol] 23 U/L Normal <=31 [facility] Comment on above: Performed By: #### L 100.0100, L500.4050 ####[facility] [address] [place], [address] Bilirubin [Mass/Vol] 0.41 mg/dL Normal 0.00-1.30 [facility] Comment on above: Performed By: #### L 100.0100, L500.4050 ####[facility] [address] [place], [address] BUN/CRE 28.0 RATIO High 10-20 [facility] Comment on above: Performed By: #### L 100.0100, L500.4050 ####[facility] [address] [place], [address] Calcium [Mass/Vol] 9.8 mg/dL Normal 7.6-11.0 [facility] Comment on above: Performed By: #### L 100.0100, L500.4050 ####[facility] [address] [place], [address] Chloride [Moles/Vol] 103 mmol/L Normal 98-108 [facility] Comment on above: Performed By: #### L 100.0100, L500.4050 ####[facility] [address] [place], [address] CO2 [Moles/Vol] 24.1 mmol/L Normal 21.0-32.0 [facility] Comment on above: Performed By: #### L 100.0100, L500.4050 ####[facility] [address] [place], [address] Creatinine [Mass/Vol] 0.81 mg/dL Normal 0.70-1.20 [facility] Comment on above: Performed By: #### L 100.0100, L500.4050 ####[facility] [address] [place], [address] ECRCL 52.32 ml/min Normal 50-250 [facility] Comment on above: Performed By: #### L 100.0100, L500.4050 ####[facility] [address] [place], [address] GAP 9 Normal 5-15 [facility] Comment on above: Performed By: #### L 100.0100, L500.4050 ####[facility] [address] [place], [address] GFR/1.73 sq M.predicted among non-blacks MDRD (S/P/Bld) [Vol rate/Area] 76 mL/min/{1.73_m2} Normal >60 [facility] Comment on above: Result Comment: mL/m in/1.73m2 CKD-EPI Creatinine Equation (2020) Performed By: #### L 100.0100, L500.4050 ####[facility] [address] [place], [address] Globulin (S) [Mass/Vol] 3.7 g/dL Normal 2.2-4.2 [facility] Comment on above: Performed By: #### L 100.0100, L500.4050 ####[facility] [address] [place], [address] Glucose [Mass/Vol] 107 mg/dL High 70-99 [facility] Comment on above: Performed By: #### L 100.0100, L500.4050 ####[facility] [address] [place], [address] Potassium [Moles/Vol] 4.5 mmol/L Normal 3.3-5.1 [facility] Comment on above: Performed By: #### L 100.0100, L500.4050 ####[facility] [address] [place], [address] Sodium [Moles/Vol] 136 mmol/L Normal 133-145 [facility] Comment on above: Performed By: #### L 100.0100, L500.4050 ####[facility] [address] [place], [address] T PROT 8.0 g/dL Normal 5.9-8.4 [facility] Comment on above: Performed By: #### L 100.0100, L500.4050 ####[facility] [address] [place], [address] Urea nitrogen [Mass/Vol] 23 mg/dL High 4-19 [facility] Comment on above: Performed By: #### L 100.0100, L500.4050 ####[facility] [address] [place], [address] Eosinophil percentageOrdered By: Yusuf Leyva on 10-02-2024 Eosinophils/100 WBC (Bld) 5.8 % High 0-5 [facility] Erythrocyte distribution wid th ratioOrdered By: Yusuf Leyva on 10-02-2024 Erythrocyte distribution width (RBC) [Ratio] 13.9 % 11.6-14.6 [facility] Erythrocyte distribution wid th standard deviationOrdered By: Yusuf Leyva on 10-02-2024 Erythrocyte distribution width (RBC) [Ratio] 44.9 fl High 35.1-43.9 [facility] Glomerular filtration rate ( GFR) estimation/1.73 sq m using serum, plasma, or whole bOrdered By: Yusuf Leyva on 10-02-2024 GFR/1.73 sq M.predicted among non-blacks MDRD (S/P/Bld) [Vol rate/Area] 76 mL/min/{1.73_m2} >60 [facility] Comment on above: mL/min/1.73m2 CKD-EP I Creatinine Equation (2020) Hematocrit Auto (Bld) [Volum e fraction]Ordered By: Yusuf Leyva on 10-02-2024 Hematocrit (Bld) [Volume fraction] 36.3 % Low 37-47 [facility] Hemoglobin measurementOrdere d By: Yusuf Leyva on 10-02-2024 Hemoglobin (Bld) [Mass/Vol] 11.8 g/dL Low 12.0-15.0 [facility] Immature granulocytes/100 WB C Auto (Bld)Ordered By: Yusuf Leyva on 10-02-2024 Immature granulocytes/100 WBC (Bld) 0.200 % 0.0-0.9 [facility] Comment on above: IG% - Immature Granu locytes (promyelocytes, myelocytes and metamyelocytes) > 1% indicates that a LEFT SHIFT is Present. Interpretation of serum or p lasma protein pattern by immunofixation (narrative resultOrdered By: Yusuf Leyva on 10-02-2024 Protein Fractions Immunofixation Ulisses [Interp] 1.5 g/dL High Not Observed [facility] Laboratory - Chemistry and C hemistry - challengeOrdered By: Yusuf Leyva on 10-02-2024 AST [Catalytic activity/Vol] 23 U/L <32 [facility] MCV (mean corpuscular volume ) determinationOrdered By: Yusuf Leyva on 10-02-2024 MCV (RBC) [Entitic vol] 89.4 fL 81-99 [facility] Mean corpuscular hemoglobin (MCH) determinationOrdered By: Yusuf Leyva on 10-02-2024 MCH (RBC) [Entitic mass] 29.1 pg 27.0-32.0 [facility] Mean corpuscular hemoglobin concentration (MCHC) determinationOrdered By: Yusuf Leyva on 10-02-2024 MCHC (RBC) [Mass/Vol] 32.5 g/dL 32-36 [facility] Mean platelet volume determi nationOrdered By: Yusuf Leyva on 10-02-2024 Platelet mean volume (Bld) [Entitic vol] 9.9 fL 6.2-12.0 [facility] Monocyte percentageOrdered B y: Yusuf Leyva on 10-02-2024 Monocytes/100 WBC (Bld) 16.8 % High 0-10 [facility] Neutrophil percentageOrdered By: Yusuf Leyva on 10-02-2024 Neutrophils/100 WBC (Bld) 34.9 % Low 47-70 [facility] No Panel InformationOrdered By: Yusuf Leyva on 10-02-2024 Addendum Document Comment . [facility] Comment on above: Protein electrophore sis scan will follow via computer,mail, or massage operator delivery. Nucleated red blood cell per centageOrdered By: Yusuf Leyva on 10-02-2024 Nucleated RBC/100 WBC (Bld) [Ratio] 0 % 0-5 [facility] Oncology Visit Reporton 09-20 Oncology Visit Report Normal [facility] Platelet countOrdered By: Frederick Leyva on 10-02-2024 Platelets (Bld) [#/Vol] 323 10*3/uL 150-450 [facility] Potassium measurement (mass/ volume)Ordered By: Yusuf Leyva on 10-02-2024 Potassium (Unsp spec) [Mass/Vol] 4.5 mmol/L 3.3-5.1 [facility] RBC Auto (Bld) [#/Vol]Ordere d By: Yusuf Leyva on 10-02-2024 RBC (Bld) [#/Vol] 4.06 10*6/uL Low 4.2-5.4 [facility] Serum creatinine measurement (mass/volume)Ordered By: Yusuf Leyva on 10-02-2024 Creatinine [Mass/Vol] 0.81 mg/dL 0.70-1.20 [facility] Serum globulin measurementOr dered By: Yusuf Leyva on 10-02-2024 Globulin (S) [Mass/Vol] 3.7 g/dL 2.2-4.2 [facility] Serum globulin measurement ( mass/volume)Ordered By: Yusuf Leyva on 10-02-2024 Globulin (S) [Mass/Vol] 4.1 g/dL High 2.2-3.9 [facility] Serum glucose measurement (m ass/volume)Ordered By: Yusuf Leyva on 10-02-2024 Glucose [Mass/Vol] 107 mg/dL High 70-99 [facility] Serum immunoglobulin kappa l ight chains/immunoglobulin lambda light chains mass ratioOrdered By: Yusuf Leyva on 10-02-2024 Immunoglobulin light chains.kappa/Immunoglob ulin light chains.lambda (S) [Mass ratio] 2.80 High 0.26-1.65 [facility] Comment on above: Performed at: [place] [id number] Director: Chris Amos PhD, Phone: [phone] Serum or plasma IgA measurem ent (mass/volume)Ordered By: Yusuf Leyva on 10-02-2024 IgA [Mass/Vol] 12 mg/dL Low 64-422 [facility] Comment on above: Result confirmed on concentration. Serum or plasma IgG measurem ent (mass/volume)Ordered By: Yusuf Leyva on 10-02-2024 IgG [Mass/Vol] 1756 mg/dL High 586-1602 [facility] Serum or plasma alanine oliveira otransferase (ALT) measurementOrdered By: Yusuf Leyva on 10-02-2024 ALT [Catalytic activity/Vol] 21 U/L <35 [facility] Serum or plasma albumin marv urement (mass/volume)Ordered By: Yusuf Leyva on 10-02-2024 Albumin [Mass/Vol] 4.3 g/dL 3.4-4.8 [facility] Serum or plasma albumin/glob ulin mass ratioOrdered By: Yusuf Leyva on 10-02-2024 Albumin/Globulin [Mass ratio] 1.2 {ratio} 0.9-2.4 [facility] Serum or plasma alkaline milla sphatase measurementOrdered By: Yusuf Leyva on 10-02-2024 ALP [Catalytic activity/Vol] 86 U/L 35-104 [facility] Serum or plasma alpha 1 glob ulin measurement by electrophoresis (mass/volume)Ordered By: Yusuf Leyva on 10-02-2024 Alpha 1 globulin Elph [Mass/Vol] 0.2 g/dL 0.0-0.4 [facility] Alpha 1 globulin Elph [Mass/Vol] 1.0 g/dL 0.4-1.0 [facility] Serum or plasma beta globuli n measurement by electrophoresis (mass/volume)Ordered By: Yusuf Leyva on 10-02-2024 Beta globulin Elph [Mass/Vol] 1.2 g/dL 0.7-1.3 [facility] Serum or plasma calcium marv urement (mass/volume)Ordered By: Yusuf Leyva on 10-02-2024 Calcium [Mass/Vol] 9.8 mg/dL 7.6-11.0 [facility] Serum or plasma gamma globul in measurement by electrophoresis (mass/volume)Ordered By: Yusuf Leyva on 10-02-2024 Gamma globulin Elph [Mass/Vol] 1.7 g/dL 0.4-1.8 [facility] Serum or plasma immunoelectr ophoresis interpretation (nominal result)Ordered By: Yusfu Leyva on 10-02-2024 Interpretation IEP [Interp] Comment High . 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 PLEASE NOTE: Samples from patients receiving DARZALEX(R)(daratumumab) or SARCLISA(R)(isatuximab-[facility]) treatmentcan appear as an IgG kappa and mask a complete response(CR). If this patient is receiving these therapies, thisIFE assay interference can be removed by ordering testnumber [id number], Daratumumab-Specific,Serum or [id number]-Vlcyfrwxpbtrxk, Isatuximab-Specific,Serum and submitting a new sample for testing or bycalling the lab to add this test to the current sample. Serum or plasma immunoglobul in kappa light chains measurement (mass/volume)Ordered By: Yusuf Leyva on 10-02-2024 Immunoglobulin light chains.kappa [Mass/Vol] 8.4 mg/L 3.3-19.4 [facility] Serum or plasma protein marv urement (mass/volume)Ordered By: Yusuf Leyva on 10-02-2024 Protein [Mass/Vol] 7.7 g/dL 6.0-8.5 [facility] Serum or plasma urea nitroge n measurement (mass/volume)Ordered By: Yusuf Gordon on 10-02-2024 Urea nitrogen [Mass/Vol] 23 mg/dL High 4-19 [facility] Sodium levelOrdered By: Semaj hodge Gordon on 10-02-2024 Sodium [Moles/Vol] 136 mmol/L 133-145 [facility] Total proteinOrdered By: Faustino amaya Gordon on 10-02-2024 Protein [Mass/Vol] 8.0 g/dL 5.9-8.4 [facility] White blood cell (WBC) count Ordered By: Yusuf Gordon on 10-02-2024 WBC (Bld) [#/Vol] 5.7 10*3/uL 4.4-11.0 [facility] CBC W/Diff, Automatedon Absolute Lymph 2.41 X10 3/uL Normal 0.83-4.51 [facility] Comment on above: Performed By: #### L 500.4050, L100.0100 ####[facility] [address] [place], [address] Absolute Neut 2.5 X10 3/uL Normal 2.0-7.7 [facility] Comment on above: Performed By: #### L 500.4050, L100.0100 ####[facility] [address] [place], [address] Basophils/100 WBC (Bld) 0.7 % Normal 0-1 [facility] Comment on above: Performed By: #### L 500.4050, L100.0100 ####[facility] [address] [place], [address] Eosinophils/100 WBC (Bld) 5.4 % High 0-5 [facility] Comment on above: Performed By: #### L 500.4050, L100.0100 ####[facility] [address] [place], [address] Erythrocyte distribution width (RBC) [Ratio] 14.0 % Normal 11.6-14.6 [facility] Comment on above: Performed By: #### L 500.4050, L100.0100 ####[facility] [address] [place], [address] Hematocrit (Bld) [Volume fraction] 36.7 % Low 37-47 [facility] Comment on above: Performed By: #### L 500.4050, L100.0100 ####[facility] [address] [place], [address] Hemoglobin (Bld) [Mass/Vol] 12.5 g/dL Normal 12.0-15.0 [facility] Comment on above: Performed By: #### L 500.4050, L100.0100 ####[facility] [address] [place], [address] IG% 0.300 Normal 0.0-0.9 [facility] Comment on above: Result Comment: IG% - Immature Granulocytes (promyelocytes, myelocytes andmetamyelocytes) > 1% indicates that a LEFT SHIFT is Present. Performed By: #### L 500.4050, L100.0100 ####[facility] [address] [place], [address] Lymphocytes/100 WBC (Bld) 40.5 % Normal 19-41 [facility] Comment on above: Performed By: #### L 500.4050, L100.0100 ####[facility] [address] [place], [address] MCH (RBC) [Entitic mass] 29.8 pg Normal 27.0-32.0 [facility] Comment on above: Performed By: #### L 500.4050, L100.0100 ####[facility] [address] [place], [address] MCHC (RBC) [Mass/Vol] 34.1 g/dL Normal 32-36 [facility] Comment on above: Performed By: #### L 500.4050, L100.0100 ####[facility] [address] [place], [address] MCV (RBC) [Entitic vol] 87.6 fL Normal 81-99 [facility] Comment on above: Performed By: #### L 500.4050, L100.0100 ####[facility] [address] [place], [address] Monocytes/100 WBC (Bld) 11.4 % High 0-10 [facility] Comment on above: Performed By: #### L 500.4050, L100.0100 ####[facility] [address] [place], [address] Neutrophils/100 WBC (Bld) 41.7 % Low 47-70 [facility] Comment on above: Performed By: #### L 500.4050, L100.0100 ####[facility] [address] [place], [address] Nucleated RBC (Bld) [#/Vol] 0 10*3/uL Normal 0-5 [facility] Comment on above: Performed By: #### L 500.4050, L100.0100 ####[facility] [address] [place], [address] Platelet mean volume (Bld) [Entitic vol] 9.8 fL Normal 6.2-12.0 [facility] Comment on above: Performed By: #### L 500.4050, L100.0100 ####[facility] [address] [place], [address] Platelets (Bld) [#/Vol] 332 10*3/uL Normal 150-450 [facility] Comment on above: Performed By: #### L 500.4050, L100.0100 ####[facility] [address] [place], [address] RBC (Bld) [#/Vol] 4.19 10*6/uL Low 4.2-5.4 [facility] Comment on above: Performed By: #### L 500.4050, L100.0100 ####[facility] [address] [place], [address] RDW SD 44.3 fl High 35.1-43.9 [facility] Comment on above: Performed By: #### L 500.4050, L100.0100 ####[facility] [address] [place], [address] WBC (Bld) [#/Vol] 6.0 10*3/uL Normal 4.4-11.0 [facility] Comment on above: Performed By: #### L 500.4050, L100.0100 ####[facility] [address] [place], [address] Comprehensive Metabolic Prof [facility] 09-25-2024 Albumin [Mass/Vol] 4.6 g/dL Normal 3.4-4.8 [facility] Comment on above: Performed By: #### L 500.4050, L100.0100 ####[facility] [address] [place], [address] Albumin/Globulin [Mass ratio] 1.1 {ratio} Normal 0.9-2.4 [facility] Comment on above: Performed By: #### L 500.4050, L100.0100 ####[facility] [address] [place], [address] ALK PHOS 98 U/L Normal 35-104 [facility] Comment on above: Performed By: #### L 500.4050, L100.0100 ####[facility] [address] [place], [address] ALT [Catalytic activity/Vol] 26 U/L Normal <=34 [facility] Comment on above: Performed By: #### L 500.4050, L100.0100 ####[facility] [address] [place], [address] AST [Catalytic activity/Vol] 26 U/L Normal <=31 [facility] Comment on above: Performed By: #### L 500.4050, L100.0100 ####[facility] [address] [place], [address] Bilirubin [Mass/Vol] 0.53 mg/dL Normal 0.00-1.30 [facility] Comment on above: Performed By: #### L 500.4050, L100.0100 ####[facility] [address] [place], [address] BUN/CRE 24.7 RATIO High 10-20 [facility] Comment on above: Performed By: #### L 500.4050, L100.0100 ####[facility] [address] [place], [address] Calcium [Mass/Vol] 10.2 mg/dL Normal 7.6-11.0 [facility] Comment on above: Performed By: #### L 500.4050, L100.0100 ####[facility] [address] [place], [address] Chloride [Moles/Vol] 102 mmol/L Normal 98-108 [facility] Comment on above: Performed By: #### L 500.4050, L100.0100 ####[facility] [address] [place], [address] CO2 [Moles/Vol] 24.1 mmol/L Normal 21.0-32.0 [facility] Comment on above: Performed By: #### L 500.4050, L100.0100 ####[facility] [address] [place], [address] Creatinine [Mass/Vol] 0.81 mg/dL Normal 0.70-1.20 [facility] Comment on above: Performed By: #### L 500.4050, L100.0100 ####[facility] [address] [place], [address] ECRCL 52.27 ml/min Normal 50-250 [facility] Comment on above: Performed By: #### L 500.4050, L100.0100 ####[facility] [address] [place], [address] GAP 12 Normal 5-15 [facility] Comment on above: Performed By: #### L 500.4050, L100.0100 ####[facility] [address] [place], [address] GFR/1.73 sq M.predicted among non-blacks MDRD (S/P/Bld) [Vol rate/Area] 76 mL/min/{1.73_m2} Normal >60 [facility] Comment on above: Result Comment: mL/m in/1.73m2 CKD-EPI Creatinine Equation (2020) Performed By: #### L 500.4050, L100.0100 ####[facility] [address] [place], [address] Globulin (S) [Mass/Vol] 4.0 g/dL Normal 2.2-4.2 [facility] Comment on above: Performed By: #### L 500.4050, L100.0100 ####[facility] [address] [place], [address] Glucose [Mass/Vol] 133 mg/dL High 70-99 [facility] Comment on above: Performed By: #### L 500.4050, L100.0100 ####[facility] [address] [place], [address] Potassium [Moles/Vol] 4.2 mmol/L Normal 3.3-5.1 [facility] Comment on above: Performed By: #### L 500.4050, L100.0100 ####[facility] [address] [place], [address] Sodium [Moles/Vol] 138 mmol/L Normal 133-145 [facility] Comment on above: Performed By: #### L 500.4050, L100.0100 ####[facility] [address] [place], [address] T PROT 8.6 g/dL High 5.9-8.4 [facility] Comment on above: Performed By: #### L 500.4050, L100.0100 ####[facility] [address] [place], [address] Urea nitrogen [Mass/Vol] 20 mg/dL High 4-19 [facility] Comment on above: Performed By: #### L 500.4050, L100.0100 ####[facility] [address] [place], [address] Oncology Visit Reporton 05-0 Oncology Visit Report Normal [facility] Oncology Visit Reporton 3 Oncology Visit Report Normal [facility] GAYLE + Protein Elect, Serumon 08-31-2024 Albumin [Mass/Vol] 3.8 g/dL Normal 2.9-4.4 [facility] Comment on above: Order Comment: ADD O N FROM [facility] Performed By: #### L 4863.3429 ####[facility] [address] [place], [address] Albumin/Globulin [Mass ratio] 1.0 {ratio} Normal 0.7-1.7 [facility] Comment on above: Order Comment: ADD O N FROM [facility] Performed By: #### L 3099.3425 ####[facility] [address] [place], [address] NJSOE-1-NLTH 0.3 g/dL Normal 0.0-0.4 [facility] Comment on above: Order Comment: ADD O N FROM [facility]LIER [facility] Performed By: #### L 3100.3425 ####[facility] [address] [place], [address] IECFM-9-UJWM 1.0 g/dL Normal 0.4-1.0 [facility] Comment on above: Order Comment: ADD O N FROM E[facility]LIER [facility] Performed By: #### L 3100.3425 ####[facility] [address] [place], [address] BETA GLOBULIN 1.2 g/dL Normal 0.7-1.3 [facility] Comment on above: Order Comment: ADD O N FROM EARLIER [facility] Performed By: #### L 3100.3425 ####[facility] [address] [place], [address] GAMMA GLOBULIN 1.6 g/dL Normal 0.4-1.8 [facility] Comment on above: Order Comment: ADD O N FROM EARLIER [facility] Performed By: #### L 3100.3425 ####[facility] [address] [place], [address] Globulin (S) [Mass/Vol] 4.0 g/dL Abnormal 2.2-3.9 [facility] Comment on above: Order Comment: ADD O N FROM EARLIER LABSN Performed By: #### L 3100.3425 ####[facility] [address] [place], [address] GAYLE RESULT,S Comment Abnormal . [facility] Comment on above: Order Comment: ADD O N FROM [facility]LIER [facility] Result Comment: Immu nofixation shows IgG monoclonal protein with kappalight chain specificity. PLEASE NOTE: Samples from patients receiving DARZALEX(R)(daratumumab) or SARCLISA(R)(isatuximab-[facility]) treatmentcan appear as an IgG kappa and mask a complete response(CR). If this patient is receiving these therapies, thisIFE assay interference can be removed by ordering testnumber [id number]-Rztsprylfgrbkg, Daratumumab-Specific,Serum or [id number]-Jmzgucvszrtvod, Isatuximab-Specific,Serum and submitting a new sample for testing or bycalling the lab to add this test to the current sample. Performed By: #### L 3100.3425 ####[facility] [address] [place], [address] IMMUNOGLOB A QN 14 mg/dL Low 64-422 [facility] Comment on above: Order Comment: ADD O N FROM [facility]LIER [facility] Result Comment: Resu lt confirmed on concentration. Performed By: #### L 3100.3425 ####[facility] [address] [facility] [address] IMMUNOGLOB G QN 1711 mg/dL High 586-1602 [facility] Comment on above: Order Comment: ADD O N FROM EARLIER LABSN Performed By: #### L 3100.3425 ####[facility] [address] [place], [address] IMMUNOGLOB M QN 10 mg/dL Low 26-217 [facility] Comment on above: Order Comment: ADD O N FROM [facility]LI[facility] Result Comment: Resu lt confirmed on concentration. Performed By: #### L 3100.3425 ####[facility] [address] [place], [address] M-Adolfo 1.3 g/dL Abnormal Not Observed [facility] Comment on above: Order Comment: ADD O N FROM E[facility]LIER [facility] Performed By: #### L 3100.3425 ####[facility] [address] [place], [address] NOTE: Comment Normal . [facility] Comment on above: Order Comment: ADD O N FROM [facility] Result Comment: Prot ein electrophoresis scan will follow via computer,mail, or massage operator delivery. Performed By: #### L 3100.3425 ####[facility] [address] [place], [address] Protein [Mass/Vol] 7.8 g/dL Normal 6.0-8.5 [facility] Comment on above: Order Comment: ADD O N FROM E[facility]LIER [facility] Performed By: #### L 3100.3425 ####[facility] [address] [place], [address] [place] [employer] Chainson 08-29-2024 FR KAPPA LT CHN 7.0 mg/L Normal 3.3-19.4 [facility] Comment on above: Performed By: #### L 3130.0010 ####[facility] [address] [place], [address] FR LAMBDA LT CH 2.7 mg/L Abnormal 5.7-26.3 [facility] Comment on above: Performed By: #### L 3130.0010 ####[facility] [address] [place], [address] KAPPA/LAMBDA % 2.59 Abnormal 0.26-1.65 [facility] Comment on above: Result Comment: Perf ormed at: [facility] [place] [id number] Director: Chris Amos PhD, Phone: [phone] Performed By: #### L 3130.0010 ####[facility] [address] [place], [address] Albumin Elph [Mass/Vol]Order ed By: Anika Smith on 08-28-2024 Albumin [Mass/Vol] 3.8 g/dL 2.9-4.4 [facility] CBC W/Diff, Automatedon Absolute Lymph 1.83 X10 3/uL Normal 0.83-4.51 [facility] Comment on above: Performed By: #### L 500.4050, L100.0100 ####[facility] [address] [place], [address] Absolute Neut 1.5 X10 3/uL Low 2.0-7.7 [facility] Comment on above: Performed By: #### L 500.4050, L100.0100 ####[facility] [address] [place], [address] Basophils/100 WBC (Bld) 1.0 % Normal 0-1 [facility] Comment on above: Performed By: #### L 500.4050, L100.0100 ####[facility] [address] [place], [address] Eosinophils/100 WBC (Bld) 5.8 % High 0-5 [facility] Comment on above: Performed By: #### L 500.4050, L100.0100 ####[facility] [address] [place], [address] Erythrocyte distribution width (RBC) [Ratio] 14.3 % Normal 11.6-14.6 [facility] Comment on above: Performed By: #### L 500.4050, L100.0100 ####[facility] [address] [place], [address] Hematocrit (Bld) [Volume fraction] 37.6 % Normal 37-47 [facility] Comment on above: Performed By: #### L 500.4050, L100.0100 ####[facility] [address] [place], [address] Hemoglobin (Bld) [Mass/Vol] 12.3 g/dL Normal 12.0-15.0 [facility] Comment on above: Performed By: #### L 500.4050, L100.0100 ####[facility] [address] [place], [address] IG% 0.200 Normal 0.0-0.9 [facility] Comment on above: Result Comment: IG% - Immature Granulocytes (promyelocytes, myelocytes andmetamyelocytes) > 1% indicates that a LEFT SHIFT is Present. Performed By: #### L 500.4050, L100.0100 ####[facility] [address] [place], [address] Lymphocytes/100 WBC (Bld) 44.2 % High 19-41 [facility] Comment on above: Performed By: #### L 500.4050, L100.0100 ####[facility] [address] [place], [address] MCH (RBC) [Entitic mass] 28.9 pg Normal 27.0-32.0 [facility] Comment on above: Performed By: #### L 500.4050, L100.0100 ####[facility] [address] [place], [address] MCHC (RBC) [Mass/Vol] 32.7 g/dL Normal 32-36 [facility] Comment on above: Performed By: #### L 500.4050, L100.0100 ####[facility] [address] [place], [address] MCV (RBC) [Entitic vol] 88.5 fL Normal 81-99 [facility] Comment on above: Performed By: #### L 500.4050, L100.0100 ####[facility] [address] [place], [address] Monocytes/100 WBC (Bld) 13.5 % High 0-10 [facility] Comment on above: Performed By: #### L 500.4050, L100.0100 ####[facility] [address] [place], [address] Neutrophils/100 WBC (Bld) 35.3 % Low 47-70 [facility] Comment on above: Performed By: #### L 500.4050, L100.0100 ####[facility] [address] [place], [address] Nucleated RBC (Bld) [#/Vol] 0 10*3/uL Normal 0-5 [facility] Comment on above: Performed By: #### L 500.4050, L100.0100 ####[facility] [address] [place], [address] Platelet mean volume (Bld) [Entitic vol] 9.8 fL Normal 6.2-12.0 [facility] Comment on above: Performed By: #### L 500.4050, L100.0100 ####[facility] [address] [place], [address] Platelets (Bld) [#/Vol] 302 10*3/uL Normal 150-450 [facility] Comment on above: Performed By: #### L 500.4050, L100.0100 ####[facility] [address] [place], [address] RBC (Bld) [#/Vol] 4.25 10*6/uL Normal 4.2-5.4 [facility] Comment on above: Performed By: #### L 500.4050, L100.0100 ####[facility] [address] [place], [address] RDW SD 45.4 fl High 35.1-43.9 [facility] Comment on above: Performed By: #### L 500.4050, L100.0100 ####[facility] [address] [place], [address] WBC (Bld) [#/Vol] 4.1 10*3/uL Low 4.4-11.0 [facility] Comment on above: Performed By: #### L 500.4050, L100.0100 ####[facility] [address] [place], [address] Comprehensive Metabolic Prof ilon 08-28-2024 Albumin [Mass/Vol] 4.4 g/dL Normal 3.4-4.8 [facility] Comment on above: Performed By: #### L 500.4050, L100.0100 ####[facility] [address] [place], [address] Albumin/Globulin [Mass ratio] 1.2 {ratio} Normal 0.9-2.4 [facility] Comment on above: Performed By: #### L 500.4050, L100.0100 ####[facility] [address] [place], [address] ALK PHOS 99 U/L Normal 35-104 [facility] Comment on above: Performed By: #### L 500.4050, L100.0100 ####[facility] [address] [place], [address] ALT [Catalytic activity/Vol] 22 U/L Normal <=34 [facility] Comment on above: Performed By: #### L 500.4050, L100.0100 ####[facility] [address] [place], [address] AST [Catalytic activity/Vol] 27 U/L Normal <=31 [facility] Comment on above: Performed By: #### L 500.4050, L100.0100 ####[facility] [address] [place], [address] Bilirubin [Mass/Vol] 0.42 mg/dL Normal 0.00-1.30 [facility] Comment on above: Performed By: #### L 500.4050, L100.0100 ####[facility] [address] [place], [address] BUN/CRE 24.2 RATIO High 10-20 [facility] Comment on above: Performed By: #### L 500.4050, L100.0100 ####[facility] [address] [place], [address] Calcium [Mass/Vol] 9.9 mg/dL Normal 7.6-11.0 [facility] Comment on above: Performed By: #### L 500.4050, L100.0100 ####[facility] [address] [place], [address] Chloride [Moles/Vol] 104 mmol/L Normal 98-108 [facility] Comment on above: Performed By: #### L 500.4050, L100.0100 ####[facility] [address] [place], [address] CO2 [Moles/Vol] 23.0 mmol/L Normal 21.0-32.0 [facility] Comment on above: Performed By: #### L 500.4050, L100.0100 ####[facility] [address] [place], [address] Creatinine [Mass/Vol] 0.71 mg/dL Normal 0.70-1.20 [facility] Comment on above: Performed By: #### L 500.4050, L100.0100 ####[facility] [address] [place], [address] ECRCL 52.48 ml/min Normal 50-250 [facility] Comment on above: Performed By: #### L 500.4050, L100.0100 ####[facility] [address] [place], [address] GAP 12 Normal 5-15 [facility] Comment on above: Performed By: #### L 500.4050, L100.0100 ####[facility] [address] [place], [address] GFR/1.73 sq M.predicted among non-blacks MDRD (S/P/Bld) [Vol rate/Area] 89 mL/min/{1.73_m2} Normal >60 [facility] Comment on above: Result Comment: mL/m in/1.73m2 CKD-EPI Creatinine Equation (2020) Performed By: #### L 500.4050, L100.0100 ####[facility] [address] [place], [address] Globulin (S) [Mass/Vol] 3.8 g/dL Normal 2.2-4.2 [facility] Comment on above: Performed By: #### L 500.4050, L100.0100 ####[facility] [address] [place], [address] Glucose [Mass/Vol] 93 mg/dL Normal 70-99 [facility] Comment on above: Performed By: #### L 500.4050, L100.0100 ####[facility] [address] [place], [address] Potassium [Moles/Vol] 4.1 mmol/L Normal 3.3-5.1 [facility] Comment on above: Performed By: #### L 500.4050, L100.0100 ####[facility] [address] [place], [address] Sodium [Moles/Vol] 139 mmol/L Normal 133-145 [facility] Comment on above: Performed By: #### L 500.4050, L100.0100 ####[facility] [address] [place], [address] T PROT 8.2 g/dL Normal 5.9-8.4 [facility] Comment on above: Performed By: #### L 500.4050, L100.0100 ####[facility] [address] [place], [address] Urea nitrogen [Mass/Vol] 17 mg/dL Normal 4-19 [facility] Comment on above: Performed By: #### L 500.4050, L100.0100 ####[facility] [address] [place], [address] Interpretation of serum or p lasma protein pattern by immunofixation (narrative resultOrdered By: Anika Smith on 08-28-2024 Protein Fractions Immunofixation Ulisses [Interp] 1.3 g/dL High Not Observed [facility] No Panel InformationOrdered By: Anika Smith on 08-28-2024 Addendum Document Comment . [facility] Comment on above: Protein electrophore sis scan will follow via computer,mail, or massage operator delivery. Oncology Visit Reporton Oncology Visit Report Normal [facility] Serum immunoglobulin kappa l ight chains/immunoglobulin lambda light chains mass ratioOrdered By: Anika Smith on 08-28-2024 Immunoglobulin light chains.kappa/Immunoglob ulin light chains.lambda (S) [Mass ratio] 2.59 High 0.26-1.65 [facility] Comment on above: Performed at: [facility] [place] [id number] Director: Chris Amos PhD, Phone: [phone] Serum or plasma IgA measurem ent (mass/volume)Ordered By: Anika Smith on 08-28-2024 IgA [Mass/Vol] 14 mg/dL Low 64-422 [facility] Comment on above: Result confirmed on concentration. Serum or plasma IgG measurem ent (mass/volume)Ordered By: Anika Smith on 08-28-2024 IgG [Mass/Vol] 1711 mg/dL High 586-1602 [facility] Serum or plasma alpha 1 glob ulin measurement by electrophoresis (mass/volume)Ordered By: Anika Smith on 08-28-2024 Alpha 1 globulin Elph [Mass/Vol] 0.3 g/dL 0.0-0.4 [facility] Alpha 1 globulin Elph [Mass/Vol] 1.0 g/dL 0.4-1.0 [facility] Serum or plasma beta globuli n measurement by electrophoresis (mass/volume)Ordered By: Anika Smith on 08-28-2024 Beta globulin Elph [Mass/Vol] 1.2 g/dL 0.7-1.3 [facility] Serum or plasma gamma globul in measurement by electrophoresis (mass/volume)Ordered By: Anika Smith on 08-28-2024 Gamma globulin Elph [Mass/Vol] 1.6 g/dL 0.4-1.8 [facility] Serum or plasma immunoelectr ophoresis interpretation (nominal result)Ordered By: Anika Smith on 08-28-2024 Interpretation IEP [Interp] Comment High . 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 PLEASE NOTE: Samples from patients receiving DARZALEX(R)(daratumumab) or SARCLISA(R)(isatuximab-[facility]fc) treatmentcan appear as an IgG kappa and mask a complete response(CR). If this patient is receiving these therapies, thisIFE assay interference can be removed by ordering testnumber [id number]-Ztifinzwsogyim, Daratumumab-Specific,Serum or [id number]-Tjkccklcfhpmsl, Isatuximab-Specific,Serum and submitting a new sample for testing or bycalling the lab to add this test to the current sample. Serum or plasma immunoglobul in kappa light chains measurement (mass/volume)Ordered By: Anika Smith on 08-28-2024 Immunoglobulin light chains.kappa [Mass/Vol] 7.0 mg/L 3.3-19.4 [facility] Serum or plasma protein marv urement (mass/volume)Ordered By: Anika Smith on 08-28-2024 Protein [Mass/Vol] 7.8 g/dL 6.0-8.5 [facility] GAYLE + Protein Elect, Serumon 08-06-2024 Albumin [Mass/Vol] 3.7 g/dL Normal 2.9-4.4 [facility] Comment on above: Order Comment: N Performed By: #### L 501.2300, L3100.3425, L501.5200 ####[facility] [address] [place], [address] Albumin/Globulin [Mass ratio] 1.1 {ratio} Normal 0.7-1.7 [facility] Comment on above: Order Comment: N Performed By: #### L 501.2300, L3100.3425, L501.5200 ####[facility] [address] [place], [address] AXRXH-5-AWNE 0.3 g/dL Normal 0.0-0.4 [facility] Comment on above: Order Comment: N Performed By: #### L 501.2300, L3100.3425, L501.5200 ####[facility] [address] [place], [address] HWGDL-4-NOPJ 0.9 g/dL Normal 0.4-1.0 [facility] Comment on above: Order Comment: N Performed By: #### L 501.2300, L3100.3425, L501.5200 ####[facility] [address] [place], [address] BETA GLOBULIN 1.1 g/dL Normal 0.7-1.3 [facility] Comment on above: Order Comment: N Performed By: #### L 501.2300, L3100.3425, L501.5200 ####[facility] [address] [place], [address] GAMMA GLOBULIN 1.5 g/dL Normal 0.4-1.8 [facility] Comment on above: Order Comment: N Performed By: #### L 501.2300, L3100.3425, L501.5200 ####[facility] [address] [place], [address] Globulin (S) [Mass/Vol] 3.7 g/dL Normal 2.2-3.9 [facility] Comment on above: Order Comment: N Performed By: #### L 501.2300, L3100.3425, L501.5200 ####[facility] [address] [place], [address] GAYLE RESULT,S Comment Abnormal . 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 PLEASE NOTE: Samples from patients receiving DARZALEX(R)(daratumumab) or SARCLISA(R)([facility]) treatmentcan appear as an IgG kappa and mask a complete response(CR). If this patient is receiving these therapies, thisIFE assay interference can be removed by ordering testnumber [id number]-Gggvnnnekxirqf, Daratumumab-Specific,Serum or [id number]-Mfrcaekmuwjehl, Isatuximab-Specific,Serum and submitting a new sample for testing or bycalling the lab to add this test to the current sample. Performed By: #### L 501.2300, L3100.3425, L501.5200 ####[facility] [address] [place], [address] IMMUNOGLOB A QN 13 mg/dL Low 64-422 [facility] Comment on above: Order Comment: N Result Comment: Resu lt confirmed on concentration. Performed By: #### L 501.2300, L3100.3425, L501.5200 ####[facility] [address] [place], [address] IMMUNOGLOB G QN 1548 mg/dL Normal 586-1602 [facility] Comment on above: Order Comment: N Performed By: #### L 501.2300, L3100.3425, L501.5200 ####[facility] [address] [place], [address] IMMUNOGLOB M QN 9 mg/dL Low 26-217 [facility] Comment on above: Order Comment: N Result Comment: Resu lt confirmed on concentration. Performed By: #### L 501.2300, L3100.3425, L501.5200 ####[facility] [address] [place], [address] M-Adolfo 1.3 g/dL Abnormal Not Observed [facility] Comment on above: Order Comment: N Performed By: #### L 501.2300, L3100.3425, L501.5200 ####[facility] [address] [place], [place], [address] NOTE: Comment Normal . [facility] Comment on above: Order Comment: N Result Comment: Prot ein electrophoresis scan will follow via computer,mail, or massage operator delivery.Performed at: [address] [id number] Director: Chris Amos PhD, Phone: [phone] Performed By: #### L 501.2300, L3100.3425, L501.5200 ####[facility] [address] [place], [place], [address] Protein [Mass/Vol] 7.4 g/dL Normal 6.0-8.5 [facility] Comment on above: Order Comment: N Performed By: #### L 501.2300, L3100.3425, L501.5200 ####[facility] [address] [place], [place], [address] Absolute neutrophil countOrd ered By: Yusuf Leyva on 07-31-2024 Neutrophils (Bld) [#/Vol] 2.7 10*3/uL 2.0-7.7 [facility] Anion gap in Serum or Plasma Ordered By: Yusuf Leyva on 07-31-2024 Anion gap [Moles/Vol] 11 mmol/L 5-15 [facility] Automated blood erythrocyte countOrdered By: Yusuf Leyva on 07-31-2024 RBC (Bld) [#/Vol] 3.87 10*6/uL Low 4.2-5.4 [facility] Comment on above: Performed By: #### L 100.0100, L500.4050 ####[facility] [address] [place], [address] Automated blood hematocrit ( percentage)Ordered By: Yusuf Leyva on 03-11-2025 Hematocrit (Bld) [Volume fraction] 34.7 % Low 37-47 [facility] Comment on above: Performed By: #### L 100.0100, L500.4050 ####[facility] [address] [place], [address] Automated lymphocyte count a s percentage of total leukocytesOrdered By: Yusuf Leyva on 07-31-2024 Lymphocytes/100 WBC (Bld) 34.5 % Normal 19-41 [facility] Comment on above: Performed By: #### L 100.0100, L500.4050 ####[facility] [address] [place], [address] BUN/creatinine ratioOrdered By: Yusuf Leyva on 07-31-2024 Urea nitrogen/Creatinine [Mass ratio] 19.3 mg/mg 10-20 [facility] Basophil percentageOrdered B y: Yusuf Leyva on 07-31-2024 Basophils/100 WBC (Bld) 0.6 % Normal 0-1 [facility] Comment on above: Performed By: #### L 100.0100, L500.4050 ####[facility] [address] [place], [address] Bilirubin, totalOrdered By: Yusuf Leyva on 07-31-2024 Bilirubin [Mass/Vol] 0.32 mg/dL Normal 0.00-1.30 [facility] Comment on above: Performed By: #### L 100.0100, L500.4050 ####[facility] [address] [place], [address] CBC W/Diff, Automatedon 07-21 Absolute Lymph 1.79 X10 3/uL Normal 0.83-4.51 [facility] Comment on above: Performed By: #### L 100.0100, L500.4050 ####[facility] [address] [place], [address] Absolute Neut 2.7 X10 3/uL Normal 2.0-7.7 [facility] Comment on above: Performed By: #### L 100.0100, L500.4050 ####[facility] [address] [place], [address] IG% 0.000 Normal 0.0-0.9 [facility] Comment on above: Result Comment: IG% - Immature Granulocytes (promyelocytes, myelocytes andmetamyelocytes) > 1% indicates that a LEFT SHIFT is Present. Performed By: #### L 100.0100, L500.4050 ####[facility] [address] [place], [address] Nucleated RBC (Bld) [#/Vol] 0 10*3/uL Normal 0-5 [facility] Comment on above: Performed By: #### L 100.0100, L500.4050 ####[facility] [address] [place], [address] RDW SD 47.5 fl High 35.1-43.9 [facility] Comment on above: Performed By: #### L 100.0100, L500.4050 ####[facility] [address] [place], [address] Carbon dioxide, total [Moles /volume] in Central venous bloodOrdered By: Yusuf Leyva on 07-31-2024 CO2 [Moles/Vol] 24.5 mmol/L Normal 21.0-32.0 [facility] Comment on above: Performed By: #### L 100.0100, L500.4050 ####[facility] [address] [place], [address] Chloride assayOrdered By: Frederick Leyva on 07-31-2024 Chloride [Moles/Vol] 103 mmol/L Normal 98-108 [facility] Comment on above: Performed By: #### L 100.0100, L500.4050 ####[facility] [address] [place], [address] Comprehensive Metabolic Prof ilon 07-31-2024 ALK PHOS 96 U/L Normal 35-104 [facility] Comment on above: Performed By: #### L 100.0100, L500.4050 ####[facility] [address] [place], [address] BUN/CRE 19.3 RATIO Normal 10-20 [facility] Comment on above: Performed By: #### L 100.0100, L500.4050 ####[facility] [address] [place], [address] ECRCL 52.04 ml/min Normal 50-250 [facility] Comment on above: Performed By: #### L 100.0100, L500.4050 ####[facility] [address] [place], [address] GAP 11 Normal 5-15 [facility] Comment on above: Performed By: #### L 100.0100, L500.4050 ####[facility] [address] [place], [address] GFR/1.73 sq M.predicted among non-blacks MDRD (S/P/Bld) [Vol rate/Area] 81 mL/min/{1.73_m2} Normal >60 [facility] Comment on above: Result Comment: mL/m in/1.73m2 CKD-EPI Creatinine Equation (2020) Performed By: #### L 100.0100, L500.4050 ####[facility] [address] [place], [address] T PROT 7.9 g/dL Normal 5.9-8.4 [facility] Comment on above: Performed By: #### L 100.0100, L500.4050 ####[facility] [address] [place], [address] Comprehensive Metabolic Prof ilOrdered By: Yusuf Leyva on 07-31-2024 AST [Catalytic activity/Vol] 24 U/L Normal <=31 [facility] Comment on above: Performed By: #### L 100.0100, L500.4050 ####[facility] [address] [place], [address] Eosinophil percentageOrdered By: Yusuf Leyva on 07-31-2024 Eosinophils/100 WBC (Bld) 4.0 % Normal 0-5 [facility] Comment on above: Performed By: #### L 100.0100, L500.4050 ####[facility] [address] [place], [address] Erythrocyte distribution wid th ratioOrdered By: Yusuf Leyva on 07-31-2024 Erythrocyte distribution width (RBC) [Ratio] 14.6 % Normal 11.6-14.6 [facility] Comment on above: Performed By: #### L 100.0100, L500.4050 ####[facility] [address] [place], [address] Erythrocyte distribution wid th standard deviationOrdered By: Yusuf Leyva on 07-31-2024 Erythrocyte distribution width (RBC) [Entitic vol] 47.5 fL High 35.1-43.9 [facility] Estimation of creatinine deneen aranceOrdered By: Yusuf Leyva on 07-31-2024 Estimated Creatinine Clearance Calc 52.04 ml/min 50-250 [facility] GFR/1.73 sq M.predicted romero g non-blacks MDRD (S/P/Bld) [Vol rate/Area]Ordered By: Yusuf Leyva on 07-31-2024 Estimated GFR (MDRD) Non-Af Amer 81 >60 [facility] Comment on above: mL/min/1.73m2 CKD-EP I Creatinine Equation (2020) Hemoglobin measurementOrdere d By: Yusuf Leyva on 07-31-2024 Hemoglobin (Bld) [Mass/Vol] 11.5 g/dL Low 12.0-15.0 [facility] Comment on above: Performed By: #### L 100.0100, L500.4050 ####[facility] [address] [place], [address] Immature granulocytes/100 WB C Auto (Bld)Ordered By: Yusuf Leyva on 07-31-2024 Immature granulocytes/100 WBC (Bld) 0.000 % 0.0-0.9 [facility] Comment on above: IG% - Immature Granu locytes (promyelocytes, myelocytes and metamyelocytes) > 1% indicates that a LEFT SHIFT is Present. Lymphocytes Auto (Unsp spec) [#/Vol]Ordered By: Yusuf Leyva on 07-31-2024 Lymphocytes (Bld) [#/Vol] 1.79 10*3/uL 0.83-4.51 [facility] MCV (mean corpuscular volume ) determinationOrdered By: Yusuf Leyva on 07-31-2024 MCV (RBC) [Entitic vol] 89.7 fL Normal 81-99 [facility] Comment on above: Performed By: #### L 100.0100, L500.4050 ####[facility] [address] [facility] [place] [facility] [place], [address] Magnesium measurement (mass/ volume)Ordered By: Yusuf Leyva on 07-31-2024 Magnesium [Mass/Vol] 1.9 mg/dL Normal 1.5-2.2 [facility] Comment on above: Performed By: #### L 501.2300, L3100.3425, L501.5200 ####[facility] [address] [place], [address] Magnesium (Unsp spec) [Mass/Vol] 1.9 mg/dL 1.5-2.2 [facility] Mean corpuscular hemoglobin (MCH) determinationOrdered By: Yusuf Leyva on 07-31-2024 MCH (RBC) [Entitic mass] 29.7 pg Normal 27.0-32.0 [facility] Comment on above: Performed By: #### L 100.0100, L500.4050 ####[facility] [address] [place], [address] Mean corpuscular hemoglobin concentration (MCHC) determinationOrdered By: Yusuf Leyva on 07-31-2024 MCHC (RBC) [Mass/Vol] 33.1 g/dL Normal 32-36 [facility] Comment on above: Performed By: #### L 100.0100, L500.4050 ####[facility] [address] [place], [address] Mean platelet volume determi nationOrdered By: Yusuf Leyva on 07-31-2024 Platelet mean volume (Bld) [Entitic vol] 9.5 fL Normal 6.2-12.0 [facility] Comment on above: Performed By: #### L 100.0100, L500.4050 ####[facility] [address] [place], [address] Monocyte percentageOrdered B y: Yusuf Leyva on 07-31-2024 Monocytes/100 WBC (Bld) 9.4 % Normal 0-10 [facility] Comment on above: Performed By: #### L 100.0100, L500.4050 ####[facility] [address] [place], [address] Neutrophil percentageOrdered By: Yusuf Leyva on 07-31-2024 Neutrophils/100 WBC (Bld) 51.5 % Normal 47-70 [facility] Comment on above: Performed By: #### L 100.0100, L500.4050 ####[facility] [address] [place], [address] Nucleated red blood cell per centageOrdered By: Yusuf Leyva on 07-31-2024 Nucleated RBC/100 WBC (Bld) [Ratio] 0 % 0-5 [facility] Oncology Visit Reporton 07-21 Oncology Visit Report Normal [facility] Phosphoruson 07-31-2024 Phosphate [Mass/Vol] 4.1 mg/dL Normal 2.7-4.5 [facility] Comment on above: Performed By: #### L 501.2300, L3100.3425, L501.5200 ####[facility] [address] [place], [address] Platelet countOrdered By: Frederick Leyva on 07-31-2024 Platelets (Bld) [#/Vol] 304 10*3/uL Normal 150-450 [facility] Comment on above: Performed By: #### L 100.0100, L500.4050 ####[facility] [address] [place], [address] Potassium measurement (mass/ volume)Ordered By: Yusuf Leyva on 07-31-2024 Potassium [Moles/Vol] 4.1 mmol/L Normal 3.3-5.1 [facility] Comment on above: Performed By: #### L 100.0100, L500.4050 ####[facility] [address] [place], [address] Serum creatinine measurement (mass/volume)Ordered By: Yusuf Leyva on 07-31-2024 Creatinine [Mass/Vol] 0.77 mg/dL Normal 0.70-1.20 [facility] Comment on above: Performed By: #### L 100.0100, L500.4050 ####[facility] [address] [place], [address] Serum globulin measurementOr dered By: Yusuf Leyva on 07-31-2024 Globulin (S) [Mass/Vol] 3.6 g/dL Normal 2.2-4.2 [facility] Comment on above: Performed By: #### L 100.0100, L500.4050 ####[facility] [address] [place], [address] Serum glucose measurement (m ass/volume)Ordered By: Yusuf Leyva on 07-31-2024 Glucose [Mass/Vol] 107 mg/dL High 70-99 [facility] Comment on above: Performed By: #### L 100.0100, L500.4050 ####[facility] [address] [place], [address] Serum or plasma alanine oliveira otransferase (ALT) measurementOrdered By: Yusuf Leyva on 07-31-2024 ALT [Catalytic activity/Vol] 20 U/L Normal <=34 [facility] Comment on above: Performed By: #### L 100.0100, L500.4050 ####[facility] [address] [place], [address] Serum or plasma albumin marv urement (mass/volume)Ordered By: Yusuf Leyva on 07-31-2024 Albumin [Mass/Vol] 4.4 g/dL Normal 3.4-4.8 [facility] Comment on above: Performed By: #### L 100.0100, L500.4050 ####[facility] [address] [place], [address] Serum or plasma albumin/glob ulin mass ratioOrdered By: Yusuf Leyva on 07-31-2024 Albumin/Globulin [Mass ratio] 1.2 {ratio} Normal 0.9-2.4 [facility] Comment on above: Performed By: #### L 100.0100, L500.4050 ####[facility] [address] [place], [address] Serum or plasma alkaline milla sphatase measurementOrdered By: Yusuf Leyva on 07-31-2024 ALP [Catalytic activity/Vol] 96 U/L 35-104 [facility] Serum or plasma calcium marv urement (mass/volume)Ordered By: Yusuf Leyva on 07-31-2024 Calcium [Mass/Vol] 10.1 mg/dL Normal 7.6-11.0 [facility] Comment on above: Performed By: #### L 100.0100, L500.4050 ####[facility] [address] [place], [address] Serum or plasma urea nitroge n measurement (mass/volume)Ordered By: Yusuf Butlermadeline on 07-31-2024 Urea nitrogen [Mass/Vol] 15 mg/dL Normal 4-19 [facility] Comment on above: Performed By: #### L 100.0100, L500.4050 ####[facility] [address] [place], [address] Serum phosphorus measurement Ordered By: Yusuf Butlermadeline on 07-31-2024 Phosphorus Level 4.1 mg/dL 2.7-4.5 [facility] Sodium levelOrdered By: Semaj Butlerelbert on 07-31-2024 Sodium [Moles/Vol] 138 mmol/L Normal 133-145 [facility] Comment on above: Performed By: #### L 100.0100, L500.4050 ####[facility] [address] [place], [address] Total proteinOrdered By: Faustino Butlerelbert on 07-31-2024 Protein [Mass/Vol] 7.9 g/dL 5.9-8.4 [facility] White blood cell (WBC) count Ordered By: Yusuf Butlermadeline on 07-31-2024 WBC (Bld) [#/Vol] 5.2 10*3/uL Normal 4.4-11.0 [facility] Comment on above: Performed By: #### L 100.0100, L500.4050 ####[facility] [address] [place], [address] GAYLE + Protein Elect, Serumon 07-19-2024 Albumin [Mass/Vol] 3.4 g/dL Normal 2.9-4.4 [facility] Comment on above: Order Comment: N Performed By: #### L 100.0100, L3100.3425 ####[facility] [address] [place], [address] Albumin/Globulin [Mass ratio] 0.9 {ratio} Normal 0.7-1.7 [facility] Comment on above: Order Comment: N Performed By: #### L 100.0100, L3100.3425 ####[facility] [address] [place], [address] SCFSR-7-MAWW 0.3 g/dL Normal 0.0-0.4 [facility] Comment on above: Order Comment: N Performed By: #### L 100.0100, L3100.3425 ####[facility] [address] [place], [address] POIRH-8-RIGU 1.0 g/dL Normal 0.4-1.0 [facility] Comment on above: Order Comment: N Performed By: #### L 100.0100, L3100.3425 ####[facility] [address] [place], [address] BETA GLOBULIN 1.2 g/dL Normal 0.7-1.3 [facility] Comment on above: Order Comment: N Performed By: #### L 100.0100, L3100.3425 ####[facility] [address] [place], [address] GAMMA GLOBULIN 1.6 g/dL Normal 0.4-1.8 [facility] Comment on above: Order Comment: N Performed By: #### L 100.0100, L3100.3425 ####[facility] [address] [place], [address] Globulin (S) [Mass/Vol] 4.1 g/dL Abnormal 2.2-3.9 [facility] Comment on above: Order Comment: N Performed By: #### L 100.0100, L3100.3425 ####[facility] [address] [place], [address] GAYLE RESULT,S Comment Abnormal . 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 PLEASE NOTE: Samples from patients receiving DARZALEX(R)(daratumumab) or SARCLISA(R)(isatuximab-[facility]) treatmentcan appear as an IgG kappa and mask a complete response(CR). If this patient is receiving these therapies, thisIFE assay interference can be removed by ordering testnumber [id number], Daratumumab-Specific,Serum or [id number]-Cpjvhrehlopesp, Isatuximab-Specific,Serum and submitting a new sample for testing or bycalling the lab to add this test to the current sample. Performed By: #### L 100.0100, L3100.3425 ####[facility] [address] [place], [address] IMMUNOGLOB A QN 15 mg/dL Low 64-422 [facility] Comment on above: Order Comment: N Result Comment: Resu lt confirmed on concentration. Performed By: #### L 100.0100, L3100.3425 ####[facility] [address] [place], [address] IMMUNOGLOB G QN 1522 mg/dL Normal 586-1602 [facility] Comment on above: Order Comment: N Performed By: #### L 100.0100, L3100.3425 ####[facility] [address] [place], [address] IMMUNOGLOB M QN 11 mg/dL Low 26-217 [facility] Comment on above: Order Comment: N Result Comment: Resu lt confirmed on concentration. Performed By: #### L 100.0100, L3100.3425 ####[facility] [address] [place], [address] M-Adolfo 1.2 g/dL Abnormal Not Observed [facility] Comment on above: Order Comment: N Performed By: #### L 100.0100, L3100.3425 ####[facility] [address] [place], [address] NOTE: Comment Normal . [facility] Comment on above: Order Comment: N Result Comment: Prot ein electrophoresis scan will follow via computer,mail, or massage operator delivery.Performed at: [address] [id number] Director: Chris Amos PhD, Phone: [phone] Performed By: #### L 100.0100, L3370.3425 ####[facility] [address] [place], [address] Protein [Mass/Vol] 7.5 g/dL Normal 6.0-8.5 [facility] Comment on above: Order Comment: N Performed By: #### L 100.0100, L3151.9925 ####[facility] [address] [place], [address] Addendum DocumentOrdered By: Yusuf Leyva on 07-17-2024 Serum Immunofixation Comments Comment . [facility] Comment on above: Protein electrophore sis scan will follow via computer,mail, or massage operator delivery.Performed at: [address] [id number] Director: Chris Amos PhD, Phone: [phone] Albumin Elph [Mass/Vol]Order ed By: Yusuf Leyva on 07-17-2024 Albumin [Mass/Vol] 3.4 g/dL 2.9-4.4 [facility] Alpha 1 globulin Elph [Mass/ Vol]Ordered By: Yusuf Leyva on 07-17-2024 Dsabn-8-Ynbcdhmmo (GAYLE) 0.3 g/dL 0.0-0.4 [facility] Vypma-3-Geftnanxe (GAYLE) 1.0 g/dL 0.4-1.0 [facility] Beta globulin Elph [Mass/Vol ]Ordered By: Yusuf Leyva on 07-17-2024 Beta-Globulins (GAYLE) 1.2 g/dL 0.7-1.3 [facility] Breast imaging reportOrdered By: Roxana López on 07-17-2024 Study report [facility] Imaging Services [address] [place], [place] [address] SCRN MAMM (CAD)W/SHARMILA BILAT MR#: [id number] Acct: [id number] Name: LAURI READ Rep #: [id number] : 1950 F 74 From: Gayle López MD PCP: Dr. Thelma Frazier MD Status: REG CLI Study:SCRN MAMM (CAD)W/SHARMILA BILAT Date of Exa m: 07/17/24 Exam# [id number] Ordering Dr: Ke Frazier MD PROCEDURE: SCRN MAMM (CAD)W/SHARMILA BILAT REASON FOR EXAM: F, Age 74 y/o , presents for annual screening mammogram. Personal history of breast cancer with bilateral lumpectomies and radiation. TECHNIQUE: Bilateral screening digital breast tomosynthesis with 2D and 3D images. Computeraided detection. COMPARISON: 06/21/2023, 06/08/2022 FINDINGS: The breasts are heterogeneously dense which may obscure small masses. There are postsurgical changes in both breast. The mammogram demonstrates that the patient has dense breasts. Supplemental screening with whole breast ultrasound or MRI may be considered for further evaluation. No suspicious masses, areas of developing architectural distortion, or suspicious calcifications. BI/SCRN MAMM (CAD)W/SHARMILA BILAT IMPRESSION: There is no mammographic evidence of malignancy in either breast. BI-RADS 2: BENIGN. RECOMMEND ANNUAL MAMMOGRAPHIC SCREENING. Follow-up code: Routine Follow-up The patient will be notified of the results by letter. Reading Location: [id number] CC: Dr. Thelma Frazier MD ~ Chart Changer: Signed [facility] CBC W/Diff, Automatedon 06-24 Absolute Lymph 1.83 X10 3/uL Normal 0.83-4.51 [facility] Comment on above: Performed By: #### L 100.0100, L3100.3425 ####[facility] [address] [place], [address] Absolute Neut 1.6 X10 3/uL Low 2.0-7.7 [facility] Comment on above: Performed By: #### L 100.0100, L3100.3425 ####[facility] [address] [place], [address] Basophils/100 WBC (Bld) 0.5 % Normal 0-1 [facility] Comment on above: Performed By: #### L 100.0100, L3100.3425 ####[facility] [address] [place], [address] Eosinophils/100 WBC (Bld) 5.9 % High 0-5 [facility] Comment on above: Performed By: #### L 100.0100, L3100.3425 ####[facility] [address] [place], [address] Erythrocyte distribution width (RBC) [Ratio] 14.2 % Normal 11.6-14.6 [facility] Comment on above: Performed By: #### L 100.0100, L3100.3425 ####[facility] [address] [place], [address] Hematocrit (Bld) [Volume fraction] 36.6 % Low 37-47 [facility] Comment on above: Performed By: #### L 100.0100, L3100.3425 ####[facility] [address] [place], [address] Hemoglobin (Bld) [Mass/Vol] 12.2 g/dL Normal 12.0-15.0 [facility] Comment on above: Performed By: #### L 100.0100, L3100.3425 ####[facility] [address] [place], [address] IG% 0.000 Normal 0.0-0.9 [facility] Comment on above: Result Comment: IG% - Immature Granulocytes (promyelocytes, myelocytes andmetamyelocytes) > 1% indicates that a LEFT SHIFT is Present. Performed By: #### L 100.0100, L3100.3425 ####[facility] [address] [place], [address] Lymphocytes/100 WBC (Bld) 43.3 % High 19-41 [facility] Comment on above: Performed By: #### L 100.0100, L3100.3425 ####[facility] [address] [place], [address] MCH (RBC) [Entitic mass] 29.9 pg Normal 27.0-32.0 [facility] Comment on above: Performed By: #### L 100.0100, L3100.3425 ####[facility] [address] [place], [address] MCHC (RBC) [Mass/Vol] 33.3 g/dL Normal 32-36 [facility] Comment on above: Performed By: #### L 100.0100, L3100.3425 ####[facility] [address] [place], [address] MCV (RBC) [Entitic vol] 89.7 fL Normal 81-99 [facility] Comment on above: Performed By: #### L 100.0100, L3100.3425 ####[facility] [address] [place], [address] Monocytes/100 WBC (Bld) 11.6 % High 0-10 [facility] Comment on above: Performed By: #### L 100.0100, L3100.3425 ####[facility] [address] [place], [address] Neutrophils/100 WBC (Bld) 38.7 % Low 47-70 [facility] Comment on above: Performed By: #### L 100.0100, L3100.3425 ####[facility] [address] [place], [address] Nucleated RBC (Bld) [#/Vol] 0 10*3/uL Normal 0-5 [facility] Comment on above: Performed By: #### L 100.0100, L3100.3425 ####[facility] [address] [place], [address] Platelet mean volume (Bld) [Entitic vol] 9.6 fL Normal 6.2-12.0 [facility] Comment on above: Performed By: #### L 100.0100, L3100.3425 ####[facility] [address] [place], [address] Platelets (Bld) [#/Vol] 298 10*3/uL Normal 150-450 [facility] Comment on above: Performed By: #### L 100.0100, L3100.3425 ####[facility] [address] [place], [address] RBC (Bld) [#/Vol] 4.08 10*6/uL Low 4.2-5.4 [facility] Comment on above: Performed By: #### L 100.0100, L3100.3425 ####[facility] [address] [place], [address] RDW SD 46.6 fl High 35.1-43.9 [facility] [facility] Comment on above: Performed By: #### L 100.0100, L3100.3425 ####[facility] [address] [place], [address] WBC (Bld) [#/Vol] 4.2 10*3/uL Low 4.4-11.0 [facility] Comment on above: Performed By: #### L 100.0100, L3100.3425 ####[facility] [address] [place], [address] Gamma globulin Elph [Mass/Vo l]Ordered By: Yusuf Leyva on 07-17-2024 Gamma Globulins (GAYLE) 1.6 g/dL 0.4-1.8 [facility] IgA [Mass/Vol]Ordered By: Frederick Leyva on 07-17-2024 Immunoglobulin A 15 mg/dL Low 64-422 [facility] Comment on above: Result confirmed on concentration. IgG [Mass/Vol]Ordered By: Frederick Leyva on 07-17-2024 Immunoglobulin G 1522 mg/dL 586-1602 [facility] Immunoglobulin M measurement Ordered By: Yusuf Leyva on 07-17-2024 Immunoglobulin M 11 mg/dL Low 26-217 [facility] Comment on above: Result confirmed on concentration. Interpretation IEP [Interp]O rdered By: Yusuf Leyva on 07-17-2024 Immunofixation Screen Comment High . [facility] Comment on above: Immunofixation shows IgG monoclonal protein with kappalight chain specificity. PLEASE NOTE: Samples from patients receiving DARZALEX(R)(daratumumab) or SARCLISA(R)(isatuximab-[facility]) treatmentcan appear as an IgG kappa and mask a complete response(CR). If this patient is receiving these therapies, thisIFE assay interference can be removed by ordering testnumber [id number]-Zfzamxhcezcklf, Daratumumab-Specific,Serum or [id number]-Dynzvlvbgzwvyh, Isatuximab-Specific,Serum and submitting a new sample for testing or bycalling the lab to add this test to the current sample. Oncology Visit Reporton 06-24 Oncology Visit Report Normal [facility] Protein Fractions Immunofixa tion Ulisses [Interp]Ordered By: Yusuf Leyva on 07-17-2024 M-Adolfo (GAYLE) 1.2 g/dL High Not Observed [facility] SCRN MAMM (CAD)W/SHARMILA BILATo n 07-17-2024 SCRN MAMM (CAD)W/SHARMILA BILAT Normal [facility] Serum albumin/globulin ratio Ordered By: Yusuf Leyva on 07-17-2024 Albumin/Globulin (GAYLE) 0.9 0.7-1.7 [facility] Serum or plasma protein marv urement (mass/volume)Ordered By: Yusuf Leyva on 07-17-2024 Protein [Mass/Vol] 7.5 g/dL 6.0-8.5 [facility] CBC W/Diff, Automatedon 06-23 Absolute Lymph 2.32 X10 3/uL Normal 0.83-4.51 [facility] Comment on above: Performed By: #### L 500.4050, L100.0100 ####[facility] [address] [place], [address] Absolute Neut 1.4 X10 3/uL Low 2.0-7.7 [facility] Comment on above: Performed By: #### L 500.4050, L100.0100 ####[facility] [address] [place], [address] Basophils/100 WBC (Bld) 0.7 % Normal 0-1 [facility] Comment on above: Performed By: #### L 500.4050, L100.0100 ####[facility] [address] [place], [address] Eosinophils/100 WBC (Bld) 3.9 % Normal 0-5 [facility] Comment on above: Performed By: #### L 500.4050, L100.0100 ####[facility] [address] [place], [address] Erythrocyte distribution width (RBC) [Ratio] 14.4 % Normal 11.6-14.6 [facility] Comment on above: Performed By: #### L 500.4050, L100.0100 ####[facility] [address] [place], [address] Hematocrit (Bld) [Volume fraction] 35.7 % Low 37-47 [facility] Comment on above: Performed By: #### L 500.4050, L100.0100 ####[facility] [address] [place], [address] Hemoglobin (Bld) [Mass/Vol] 11.9 g/dL Low 12.0-15.0 [facility] Comment on above: Performed By: #### L 500.4050, L100.0100 ####[facility] [address] [place], [address] IG% 0.200 Normal 0.0-0.9 [facility] Comment on above: Result Comment: IG% - Immature Granulocytes (promyelocytes, myelocytes andmetamyelocytes) > 1% indicates that a LEFT SHIFT is Present. Performed By: #### L 500.4050, L100.0100 ####[facility] [address] [place], [address] Lymphocytes/100 WBC (Bld) 50.4 % High 19-41 [facility] Comment on above: Performed By: #### L 500.4050, L100.0100 ####[facility] [address] [place], [address] MCH (RBC) [Entitic mass] 29.8 pg Normal 27.0-32.0 [facility] Comment on above: Performed By: #### L 500.4050, L100.0100 ####[facility] [address] [place], [address] MCHC (RBC) [Mass/Vol] 33.3 g/dL Normal 32-36 [facility] Comment on above: Performed By: #### L 500.4050, L100.0100 ####[facility] [address] [place], [address] MCV (RBC) [Entitic vol] 89.3 fL Normal 81-99 [facility] Comment on above: Performed By: #### L 500.4050, L100.0100 ####[facility] [address] [place], [address] Monocytes/100 WBC (Bld) 14.3 % High 0-10 [facility] Comment on above: Performed By: #### L 500.4050, L100.0100 ####[facility] [address] [place], [address] Neutrophils/100 WBC (Bld) 30.5 % Low 47-70 [facility] Comment on above: Performed By: #### L 500.4050, L100.0100 ####[facility] [address] [place], [address] Nucleated RBC (Bld) [#/Vol] 0 10*3/uL Normal 0-5 [facility] Comment on above: Performed By: #### L 500.4050, L100.0100 ####[facility] [address] [place], [address] Platelet mean volume (Bld) [Entitic vol] 9.6 fL Normal 6.2-12.0 [facility] Comment on above: Performed By: #### L 500.4050, L100.0100 ####[facility] [address] [place], [address] Platelets (Bld) [#/Vol] 330 10*3/uL Normal 150-450 [facility] Comment on above: Performed By: #### L 500.4050, L100.0100 ####[facility] [address] [place], [address] RBC (Bld) [#/Vol] 4.00 10*6/uL Low 4.2-5.4 [facility] Comment on above: Performed By: #### L 500.4050, L100.0100 ####[facility] [address] [place], [address] RDW SD 46.5 fl High 35.1-43.9 [facility] Comment on above: Performed By: #### L 500.4050, L100.0100 ####[facility] [address] [place], [address] WBC (Bld) [#/Vol] 4.6 10*3/uL Normal 4.4-11.0 [facility] Comment on above: Performed By: #### L 500.4050, L100.0100 ####[facility] [address] [place], [address] Comprehensive Metabolic Prof ilon 07-03-2024 Albumin [Mass/Vol] 3.7 g/dL Normal 3.2-5.0 [facility] Comment on above: Performed By: #### L 500.4050, L100.0100 ####[facility] [address] [place], [address] Albumin/Globulin [Mass ratio] 0.8 {ratio} Low 0.9-2.4 [facility] Comment on above: Performed By: #### L 500.4050, L100.0100 ####[facility] [address] [place], [address] ALK P 91 U/L Normal 45-117 [facility] Comment on above: Performed By: #### L 500.4050, L100.0100 ####[facility] [address] [place], [address] ALT [Catalytic activity/Vol] 26 U/L Normal 13-56 [facility] Comment on above: Performed By: #### L 500.4050, L100.0100 ####[facility] [address] [place], [address] AST [Catalytic activity/Vol] 20 U/L Normal 15-37 [facility] Comment on above: Performed By: #### L 500.4050, L100.0100 ####[facility] [address] [place], [address] Bilirubin [Mass/Vol] 0.60 mg/dL Normal 0.20-1.00 [facility] Comment on above: Result Comment: For patients on eltrombopag therapy, use of Dimension [place] TBIL is not recommended. Performed By: #### L 500.4050, L100.0100 ####[facility] [address] [place], [address] BUN/CRE 15.8 RATIO Normal 10-20 [facility] Comment on above: Performed By: #### L 500.4050, L100.0100 ####[facility] [address] [place], [address] CA,Total 10.6 mg/dL High 8.5-10.1 [facility] Comment on above: Performed By: #### L 500.4050, L100.0100 ####[facility] [address] [place], [address] Chloride [Moles/Vol] 106 mmol/L Normal 98-107 [facility] Comment on above: Performed By: #### L 500.4050, L100.0100 ####[facility] [address] [place], [address] CO2 [Moles/Vol] 28.0 mmol/L Normal 21.0-32.0 [facility] Comment on above: Performed By: #### L 500.4050, L100.0100 ####[facility] [address] [place], [address] Creatinine [Mass/Vol] 0.82 mg/dL Normal 0.55-1.02 [facility] Comment on above: Result Comment: The validity of the calculated GFR GFRAA in patients over70 years has not been determined. Clinical correlation isessential. Performed By: #### L 500.4050, L100.0100 ####[facility] [address] [place], [address] ECRCL 50.80 ml/min Normal [facility] Comment on above: Performed By: #### L 500.4050, L100.0100 ####[facility] [address] [place], [address] EST GFR - AA 87 mL/min Normal >60 [facility] Comment on above: Result Comment: Afri can Filipino GFR Calc Performed By: #### L 500.4050, L100.0100 ####[facility] [address] [place], [address] GAP 5 Normal 5-15 [facility] Comment on above: Performed By: #### L 500.4050, L100.0100 ####[facility] [address] [place], [address] GFR/1.73 sq M.predicted among non-blacks MDRD (S/P/Bld) [Vol rate/Area] 72 mL/min/{1.73_m2} Normal >60 [facility] Comment on above: Result Comment: Non- GFR Calc Performed By: #### L 500.4050, L100.0100 ####[facility] [address] [place], [address] Globulin (S) [Mass/Vol] 4.8 g/dL High 2.2-4.2 [facility] Comment on above: Performed By: #### L 500.4050, L100.0100 ####[facility] [address] [place], [address] Glucose [Mass/Vol] 99 mg/dL Normal 74-106 [facility] Comment on above: Performed By: #### L 500.4050, L100.0100 ####[facility] [address] [place], [address] Potassium [Moles/Vol] 4.4 mmol/L Normal 3.5-5.1 [facility] Comment on above: Performed By: #### L 500.4050, L100.0100 ####[facility] [address] [place], [address] Sodium [Moles/Vol] 139 mmol/L Normal 136-145 [facility] Comment on above: Performed By: #### L 500.4050, L100.0100 ####[facility] [address] [place], [address] T PROT 8.5 g/dL High 6.4-8.2 [facility] Comment on above: Performed By: #### L 500.4050, L100.0100 ####[facility] [address] [place], [address] Urea nitrogen [Mass/Vol] 13 mg/dL Normal 7-18 [facility] Comment on above: Performed By: #### L 500.4050, L100.0100 ####[facility] [address] [place], [address] Estimated glomerular filtrat ion rate (GFR) AmericanOrdered By: Yusuf Leyva on 07-03-2024 Estimated GFR (MDRD) Amer 87 mL/min >60 [facility] Comment on above: GFR Calc Oncology Visit Reporton 06-23 Oncology Visit Report Normal [facility] XR CHEST 2 VIEWSon XR CHEST 2 VIEWS Interpreted By: Marques Kurtz, STUDY: XR CHEST 2 VIEWS; 06/26/2024 1:36 pm INDICATION: Signs/Symptoms:follow up pneumonia. ,J18.9 Pneumonia, unspecified organism COMPARISON: 06/12/2024 ACCESSION NUMBER(S): [id number] ORDERING CLINICIAN: THELMA FRAZIER FINDINGS: CARDIOMEDIASTINAL SILHOUETTE: Cardiomediastinal silhouette is normal in size and configuration. LUNGS: Lungs are clear. There is no consolidation or effusion. ABDOMEN: No remarkable upper abdominal findings. BONES: No acute osseous changes. Soft tissue calcifications over the left chest wall. IMPRESSION: 1. No evidence of acute cardiopulmonary process. MACRO: None Signed by: Marques Fox 06/27/2024 7:42 PM Dictation workstation: [id number] [facility] GAYLE + Protein ElectRosaleeon 06-21-2024 Albumin [Mass/Vol] 3.4 g/dL Normal 2.9-4.4 [facility] Comment on above: Order Comment: N Performed By: #### L 100.0100, L3100.3425, L3130.0010 ####[facility] [address] [place], [address] Albumin/Globulin [Mass ratio] 0.9 {ratio} Normal 0.7-1.7 [facility] Comment on above: Order Comment: N Performed By: #### L 100.0100, L3100.3425, L3130.0010 ####[facility] [address] [place], [address] IUMPW-6-MWTP 0.3 g/dL Normal 0.0-0.4 [facility] Comment on above: Order Comment: N Performed By: #### L 100.0100, L3100.3425, L3130.0010 ####[facility] [address] [place], [address] QGIXE-1-MJRZ 1.1 g/dL High 0.4-1.0 [facility] Comment on above: Order Comment: N Performed By: #### L 100.0100, L3100.3425, L3130.0010 ####[facility] [address] [place], [address] BETA GLOBULIN 1.1 g/dL Normal 0.7-1.3 [facility] Comment on above: Order Comment: N Performed By: #### L 100.0100, L3100.3425, L3130.0010 ####[facility] [address] [place], [address] GAMMA GLOBULIN 1.4 g/dL Normal 0.4-1.8 [facility] Comment on above: Order Comment: N Performed By: #### L 100.0100, L3100.3425, L3130.0010 ####[facility] [address] [place], [address] Globulin (S) [Mass/Vol] 3.9 g/dL Normal 2.2-3.9 [facility] Comment on above: Order Comment: N Performed By: #### L 100.0100, L3100.3425, L3130.0010 ####[facility] [address] [place], [address] GAYLE RESULT,S Comment Abnormal . 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 PLEASE NOTE: Samples from patients receiving DARZALEX(R)(daratumumab) or SARCLISA(R)(isatuximab-[facility]) treatmentcan appear as an IgG kappa and mask a complete response(CR). If this patient is receiving these therapies, thisIFE assay interference can be removed by ordering testnumber [id number]-Gewmrvuboujxot, Daratumumab-Specific,Serum or [id number]-Lblysmpbocbzqe, Isatuximab-Specific,Serum and submitting a new sample for testing or bycalling the lab to add this test to the current sample. Performed By: #### L 100.0100, L3100.3425, L3130.0010 ####[facility] [address] [place], [address] IMMUNOGLOB A QN 17 mg/dL Low 64-422 [facility] Comment on above: Order Comment: N Result Comment: Resu lt confirmed on concentration. Performed By: #### L 100.0100, L3100.3425, L3130.0010 ####[facility] [address] [place], [address] IMMUNOGLOB G QN 1381 mg/dL Normal 586-1602 [facility] Comment on above: Order Comment: N Performed By: #### L 100.0100, L3100.3425, L3130.0010 ####[facility] [address] [place], [address] IMMUNOGLOB M QN 13 mg/dL Low 26-217 [facility] Comment on above: Order Comment: N Result Comment: Resu lt confirmed on concentration. Performed By: #### L 100.0100, L3100.3425, L3130.0010 ####[facility] [address] [place], [address] M-Adolfo 1.1 g/dL Abnormal Not Observed [facility] Comment on above: Order Comment: N Performed By: #### L 100.0100, L3100.3425, L3130.0010 ####[facility] [address] [place], [address] NOTE: Comment Normal . [facility] Comment on above: Order Comment: N Result Comment: Prot ein electrophoresis scan will follow via computer,mail, or massage operator delivery. Performed By: #### L 100.0100, L3100.3425, L3130.0010 ####[facility] [address] [place], [address] Protein [Mass/Vol] 7.3 g/dL Normal 6.0-8.5 [facility] Comment on above: Order Comment: N Performed By: #### L 100.0100, L3100.3425, L3130.0010 ####[facility] [address] [place], [address] [place] Lambda Light Chainson 06-21-2024 FR KAPPA LT CHN 8.8 mg/L Normal 3.3-19.4 [facility] Comment on above: Performed By: #### L 100.0100, L3100.3425, L3130.0010 ####[facility] [address] [place], [address] FR LAMBDA LT CH 3.4 mg/L Abnormal 5.7-26.3 [facility] Comment on above: Performed By: #### L 100.0100, L3100.3425, L3130.0010 ####[facility] [address] [place], [address] KAPPA/LAMBDA % 2.59 Abnormal 0.26-1.65 [facility] Comment on above: Result Comment: Perf ormed at: [facility] [address] [id number] Director: Chris Amos PhD, Phone: [phone] Performed By: #### L 100.0100, L3100.3425, L3130.0010 ####[facility] [address] [place], [address] CBC W/Diff, Automatedon 05-24 Absolute Lymph 1.66 X10 3/uL Normal 0.83-4.51 [facility] Comment on above: Performed By: #### L 100.0100, L3100.3425, L3130.0010 ####[facility] [address] [place], [address] Absolute Neut 1.2 X10 3/uL Low 2.0-7.7 [facility] Comment on above: Performed By: #### L 100.0100, L3100.3425, L3130.0010 ####[facility] [address] [place], [address] Basophils/100 WBC (Bld) 0.6 % Normal 0-1 [facility] Comment on above: Performed By: #### L 100.0100, L3100.3425, L3130.0010 ####[facility] [address] [place], [address] Eosinophils/100 WBC (Bld) 3.5 % Normal 0-5 [facility] Comment on above: Performed By: #### L 100.0100, L3100.3425, L3130.0010 ####[facility] [address] [place], [address] Erythrocyte distribution width (RBC) [Ratio] 13.6 % Normal 11.6-14.6 [facility] Comment on above: Performed By: #### L 100.0100, L3100.3425, L3130.0010 ####[facility] [address] [place], [address] Hematocrit (Bld) [Volume fraction] 31.9 % Low 37-47 [facility] Comment on above: Performed By: #### L 100.0100, L3100.3425, L3130.0010 ####[facility] [address] [place], [address] Hemoglobin (Bld) [Mass/Vol] 10.8 g/dL Low 12.0-15.0 [facility] Comment on above: Performed By: #### L 100.0100, L3100.3425, L3130.0010 ####[facility] [address] [place], [address] IG% 0.300 Normal 0.0-0.9 [facility] Comment on above: Result Comment: IG% - Immature Granulocytes (promyelocytes, myelocytes andmetamyelocytes) > 1% indicates that a LEFT SHIFT is Present. Performed By: #### L 100.0100, L3100.3425, L3130.0010 ####[facility] [address] [place], [address] Lymphocytes/100 WBC (Bld) 48.3 % High 19-41 [facility] Comment on above: Performed By: #### L 100.0100, L3100.3425, L3130.0010 ####[facility] [address] [place], [address] MCH (RBC) [Entitic mass] 29.8 pg Normal 27.0-32.0 [facility] Comment on above: Performed By: #### L 100.0100, L3100.3425, L3130.0010 ####[facility] [address] [place], [address] MCHC (RBC) [Mass/Vol] 33.9 g/dL Normal 32-36 [facility] Comment on above: Performed By: #### L 100.0100, L3100.3425, L3130.0010 ####[facility] [address] [place], [address] MCV (RBC) [Entitic vol] 88.1 fL Normal 81-99 [facility] Comment on above: Performed By: #### L 100.0100, L3100.3425, L3130.0010 ####[facility] [address] [place], [address] Monocytes/100 WBC (Bld) 12.8 % High 0-10 [facility] Comment on above: Performed By: #### L 100.0100, L3100.3425, L3130.0010 ####[facility] [address] [place], [address] Neutrophils/100 WBC (Bld) 34.5 % Low 47-70 [facility] Comment on above: Performed By: #### L 100.0100, L3100.3425, L3130.0010 ####[facility] [address] [place], [address] Nucleated RBC (Bld) [#/Vol] 0 10*3/uL Normal 0-5 [facility] Comment on above: Performed By: #### L 100.0100, L3100.3425, L3130.0010 ####[facility] [address] [place], [address] Platelet mean volume (Bld) [Entitic vol] 9.3 fL Normal 6.2-12.0 [facility] Comment on above: Performed By: #### L 100.0100, L3100.3425, L3130.0010 ####[facility] [address] [place], [address] Platelets (Bld) [#/Vol] 278 10*3/uL Normal 150-450 [facility] Comment on above: Performed By: #### L 100.0100, L3100.3425, L3130.0010 ####[facility] [address] [place], [address] RBC (Bld) [#/Vol] 3.62 10*6/uL Low 4.2-5.4 [facility] Comment on above: Performed By: #### L 100.0100, L3100.3425, L3130.0010 ####[facility] [address] [place], [address] RDW SD 43.8 fl Normal 35.1-43.9 [facility] Comment on above: Performed By: #### L 100.0100, L3100.3425, L3130.0010 ####[facility] [address] [place], [address] WBC (Bld) [#/Vol] 3.4 10*3/uL Low 4.4-11.0 [facility] Comment on above: Performed By: #### L 100.0100, L3100.3425, L3130.0010 ####[facility] [address] [place], [address] Immunoglobulin light chains. kappa [Mass/Vol]Ordered By: Anika Smith on 06-19-2024 Free [place] Light Chains, Quant 8.8 mg/L 3.3-19.4 [facility] Immunoglobulin light chains. kappa/Immunoglobulin light chains.lambda (S) [Mass ratio]Ordered By: Anika Smith on 06-19-2024 Free [place]/Lambda Light Chain Ratio 2.59 High 0.26-1.65 [facility] Comment on above: Performed at: [facility] [address] [place], [place] [id number] Director: Chris Amos PhD, Phone: [phone] Lambda free light chain marv urementOrdered By: Anika Smith on 06-19-2024 Free Lambda Light Chains, Quant 3.4 mg/L Low 5.7-26.3 [facility] Oncology Visit Reporton 05-24 Oncology Visit Report Normal [facility] XR CHEST 2 VIEWSon XR CHEST 2 VIEWS Interpreted By: Bruce Shaw, STUDY: XR CHEST 2 VIEWS; ; 06/12/2024 5:43 pm INDICATION: Signs/Symptoms:cough and SOB. COMPARISON: 05/31/2024 ACCESSION NUMBER(S): [id number] ORDERING CLINICIAN: THELMA FRAZIER TECHNIQUE: 2 radiographs of the chest were performed. FINDINGS: The heart is of normal size and contour. There is faint increased density in the lung bases greater on the left which in part may be related overlapping soft tissues and is less conspicuous on the lateral radiograph. The pulmonary vessels are prominent centrally. There is mild peribronchial thickening bilaterally with increased perihilar lung markings. There is no pleural effusion or pneumothorax. The osseous structures are demineralized though intact. IMPRESSION: Mild peribronchial thickening and increased perihilar lung markings. Correlate with clinical findings of viral infection. Subtle increased density is noted in the lung bases on the frontal radiograph. This appearance is less conspicuous on the lateral radiograph and could reflect overlapping soft tissues. Continued plain film surveillance is recommended as clinically warranted. MACRO: None Signed by: Bruce Shaw 06/13/2024 8:32 PM Dictation workstation: [id number] [facility] [facility] SARS-COV-2 RAPID AG (WIC)on 06-10-2024 SARS-CoV-2 (COVID-19) RNA MARY JO+probe Ql (Unsp spec) Not detected Normal NOT DETECTED [facility] Comment on above: Result Comment: Nega tive results should be treated as presumptive and confirmation with a molecular assay, if necessary, for patient management, may be performed. Negative results do not rule out SARSCoV-2 infection and should not be used as the sole basis for treatment or patient management decisions, including infection control decisions. Negative results should be considered in the context of a patient's recent exposures, history and the presence of clinical signs and symptoms consistent with COVID-19. Performed By: #### C COVAG #### Testing performed at [address] [address] NARRATIVE This test was perfor med using lateral flow immunoassay. This test does not differentiate between SARS-CoV and SARS-CoV2. Normal [facility] Comment on above: Performed By: #### C COVAG #### Testing performed at [address] [place] [address] SARS-COV-2 RAPID ANTIGEN (CL INIC ONLY)on 06-10-2024 SARS-CoV-2 (COVID-19) RNA MARY JO+probe Ql (Unsp spec) This test was performed using lateral flow immunoassay. This test does not differentiate between SARS-CoV and SARS-CoV2. [facility] SARS-CoV-2 (COVID-19) RNA NA A+probe Ql (Unsp spec)on 06-10-2024 SARS-CoV-2 (COVID-19) Ag IA.rapid Ql (Resp) Not detected NOT DETECTED [facility] Comment on above: Negative results dejan uld be treated as presumptive and confirmation with a molecular assay, if necessary, for patient management, may be performed. Negative results do not rule out SARSCoV-2 infection and should not be used as the sole basis for treatment or patient management decisions, including infection control decisions. Negative results should be considered in the context of a patient's recent exposures, history and the presence of clinical signs and symptoms consistent with COVID-19. [facility] XR CHEST PA AND LATERAL 2 EWSon 06-10-2024 XR CHEST PA AND LATERAL 2 VIEWS EXAM: XR CHEST PA AND LATERAL 2 VIEWS INDICATION: r/o pnu. COMPARISON: None. TECHNIQUE: Two views of the chest FINDINGS: Normal cardiomediastinal contours. Normal pulmonary vasculature. No acute infiltrative process. No pleural effusion or pneumothorax. No acute osseous abnormality. Left breast calcification noted. IMPRESSION: No acute cardiopulmonary process. Normal [facility] XR Chest PA and Lateralon IMPRESSION: No acute cardiopulmonary process. RADIOLOGY EXAM: XR CHEST PA AN D LATERAL 2 VIEWS INDICATION: r/o pnu. COMPARISON: None. TECHNIQUE: Two views of the chest FINDINGS: Normal cardiomediastinal contours. Normal pulmonary vasculature. No acute infiltrative process. No pleural effusion or pneumothorax. No acute osseous abnormality. Left breast calcification noted. RADIOLOGY Robyn Arriaga MD - 06/10/2024 EXAM: XR CHEST PA AND LATERAL 2 VIEWS INDICATION: r/o pnu. COMPARISON: None. TECHNIQUE: Two views of the chest FINDINGS: Normal cardiomediastinal contours. Normal pulmonary vasculature. No acute infiltrative process. No pleural effusion or pneumothorax. No acute osseous abnormality. Left breast calcification noted. IMPRESSION IMPRESSION: No acute cardiopulmonary process. [facility] Radiology Study observation (narrative) [email or web address] XR Chest PA and LateralOrder ed By: Robyn Mosqueda on 06-10-2024 [facility] Work Phone: CBC W/Diff, Automatedon 05-23 Absolute Lymph 1.67 X10 3/uL Normal 0.83-4.51 [facility] Comment on above: Performed By: #### L 500.4050, L100.0100 ####[facility] [address] [place], [address] Absolute Neut 1.3 X10 3/uL Low 2.0-7.7 [facility] Comment on above: Performed By: #### L 500.4050, L100.0100 ####[facility] [address] [place], [address] Basophils/100 WBC (Bld) 0.3 % Normal 0-1 [facility] Comment on above: Performed By: #### L 500.4050, L100.0100 ####[facility] [address] [place], [address] Eosinophils/100 WBC (Bld) 2.7 % Normal 0-5 [facility] Comment on above: Performed By: #### L 500.4050, L100.0100 ####[facility] [address] [place], [address] Erythrocyte distribution width (RBC) [Ratio] 14.0 % Normal 11.6-14.6 [facility] Comment on above: Performed By: #### L 500.4050, L100.0100 ####[facility] [address] [place], [address] Hematocrit (Bld) [Volume fraction] 33.5 % Low 37-47 [facility] Comment on above: Performed By: #### L 500.4050, L100.0100 ####[facility] [address] [place], [address] Hemoglobin (Bld) [Mass/Vol] 11.2 g/dL Low 12.0-15.0 [facility] Comment on above: Performed By: #### L 500.4050, L100.0100 ####[facility] [address] [place], [address] IG% 0.300 Normal 0.0-0.9 [facility] Comment on above: Result Comment: IG% - Immature Granulocytes (promyelocytes, myelocytes andmetamyelocytes) > 1% indicates that a LEFT SHIFT is Present. Performed By: #### L 500.4050, L100.0100 ####[facility] [address] [place], [address] Lymphocytes/100 WBC (Bld) 49.3 % High 19-41 [facility] Comment on above: Performed By: #### L 500.4050, L100.0100 ####[facility] [address] [place], [address] MCH (RBC) [Entitic mass] 30.2 pg Normal 27.0-32.0 [facility] Comment on above: Performed By: #### L 500.4050, L100.0100 ####[facility] [address] [place], [address] MCHC (RBC) [Mass/Vol] 33.4 g/dL Normal 32-36 [facility] Comment on above: Performed By: #### L 500.4050, L100.0100 ####[facility] [address] [place], [address] MCV (RBC) [Entitic vol] 90.3 fL Normal 81-99 [facility] Comment on above: Performed By: #### L 500.4050, L100.0100 ####[facility] [address] [place], [address] Monocytes/100 WBC (Bld) 10.6 % High 0-10 [facility] Comment on above: Performed By: #### L 500.4050, L100.0100 ####[facility] [address] [place], [address] Neutrophils/100 WBC (Bld) 36.8 % Low 47-70 [facility] Comment on above: Performed By: #### L 500.4050, L100.0100 ####[facility] [address] [place], [address] Nucleated RBC (Bld) [#/Vol] 0 10*3/uL Normal 0-5 [facility] Comment on above: Performed By: #### L 500.4050, L100.0100 ####[facility] [address] [place], [address] Platelet mean volume (Bld) [Entitic vol] 9.4 fL Normal 6.2-12.0 [facility] Comment on above: Performed By: #### L 500.4050, L100.0100 ####[facility] [address] [place], [address] Platelets (Bld) [#/Vol] 183 10*3/uL Normal 150-450 [facility] Comment on above: Performed By: #### L 500.4050, L100.0100 ####[facility] [address] [place], [address] RBC (Bld) [#/Vol] 3.71 10*6/uL Low 4.2-5.4 [facility] Comment on above: Performed By: #### L 500.4050, L100.0100 ####[facility] [address] [place], [address] RDW SD 46.9 fl High 35.1-43.9 [facility] Comment on above: Performed By: #### L 500.4050, L100.0100 ####[facility] [address] [place], [address] WBC (Bld) [#/Vol] 3.4 10*3/uL Low 4.4-11.0 [facility] Comment on above: Performed By: #### L 500.4050, L100.0100 ####[facility] [address] [place], [address] Comprehensive Metabolic Prof ilon 06-05-2024 Albumin [Mass/Vol] 3.4 g/dL Normal 3.2-5.0 [facility] Comment on above: Performed By: #### L 500.4050, L100.0100 ####[facility] [address] [place], [address] Albumin/Globulin [Mass ratio] 0.8 {ratio} Low 0.9-2.4 [facility] Comment on above: Performed By: #### L 500.4050, L100.0100 ####[facility] [address] [place], [address] ALK P 82 U/L Normal 45-117 [facility] Comment on above: Performed By: #### L 500.4050, L100.0100 ####[facility] [address] [place], [address] ALT [Catalytic activity/Vol] 27 U/L Normal 13-56 [facility] Comment on above: Performed By: #### L 500.4050, L100.0100 ####[facility] [address] [place], [address] AST [Catalytic activity/Vol] 30 U/L Normal 15-37 [facility] Comment on above: Performed By: #### L 500.4050, L100.0100 ####[facility] [address] [place], [address] Bilirubin [Mass/Vol] 0.40 mg/dL Normal 0.20-1.00 [facility] Comment on above: Result Comment: For patients on eltrombopag therapy, use of Dimension [place] TBIL is not recommended. Performed By: #### L 500.4050, L100.0100 ####[facility] [address] [place], [address] BUN/CRE 17.1 RATIO Normal 10-20 [facility] Comment on above: Performed By: #### L 500.4050, L100.0100 ####[facility] [address] [place], [address] CA,Total 9.3 mg/dL Normal 8.5-10.1 [facility] Comment on above: Performed By: #### L 500.4050, L100.0100 ####[facility] [address] [place], [address] Chloride [Moles/Vol] 104 mmol/L Normal 98-107 [facility] Comment on above: Performed By: #### L 500.4050, L100.0100 ####[facility] [address] [place], [address] CO2 [Moles/Vol] 28.0 mmol/L Normal 21.0-32.0 [facility] Comment on above: Performed By: #### L 500.4050, L100.0100 ####[facility] [address] [place], [address] Creatinine [Mass/Vol] 0.70 mg/dL Normal 0.55-1.02 [facility] Comment on above: Result Comment: The validity of the calculated GFR GFRAA in patients over70 years has not been determined. Clinical correlation isessential. Performed By: #### L 500.4050, L100.0100 ####[facility] [address] [place], [address] ECRCL 52.06 ml/min Normal [facility] Comment on above: Performed By: #### L 500.4050, L100.0100 ####[facility] [address] [place], [address] EST GFR - AA 105 mL/min Normal >60 [facility] Comment on above: Result Comment: Afri can Filipino GFR Calc Performed By: #### L 500.4050, L100.0100 ####[facility] [address] [place], [address] GAP 7 Normal 5-15 [facility] Comment on above: Performed By: #### L 500.4050, L100.0100 ####[facility] [address] [place], [address] GFR/1.73 sq M.predicted among non-blacks MDRD (S/P/Bld) [Vol rate/Area] 87 mL/min/{1.73_m2} Normal >60 [facility] Comment on above: Result Comment: Non- GFR Calc Performed By: #### L 500.4050, L100.0100 ####[facility] [address] [place], [address] Globulin (S) [Mass/Vol] 4.5 g/dL High 2.2-4.2 [facility] Comment on above: Performed By: #### L 500.4050, L100.0100 ####[facility] [address] [place], [address] Glucose [Mass/Vol] 113 mg/dL High 74-106 [facility] Comment on above: Result Comment: Fast ing Glucose result from 100 to 125 mg/dLsuggests IMPAIRED HOMEOSTASIS per A.D.A. criteria. Performed By: #### L 500.4050, L100.0100 ####[facility] [address] [place], [address] Potassium [Moles/Vol] 3.1 mmol/L Low 3.5-5.1 [facility] Comment on above: Performed By: #### L 500.4050, L100.0100 ####[facility] [address] [place], [address] Sodium [Moles/Vol] 138 mmol/L Normal 136-145 [facility] Comment on above: Performed By: #### L 500.4050, L100.0100 ####[facility] [address] [place], [address] T PROT 7.9 g/dL Normal 6.4-8.2 [facility] Comment on above: Performed By: #### L 500.4050, L100.0100 ####[facility] [address] [place], [address] Urea nitrogen [Mass/Vol] 12 mg/dL Normal 7-18 [facility] Comment on above: Performed By: #### L 500.4050, L100.0100 ####[facility] [address] [place], [address] Magnesiumon 06-05-2024 Magnesium [Mass/Vol] 1.8 mg/dL Normal 1.6-2.6 [facility] Comment on above: Order Comment: HUBERT E ADD TO BLOOD IN LAB. THANK YOU!! Performed By: #### L 501.5200 ####[facility] [address] [place], [address] Oncology Visit Reporton 05-23 Oncology Visit Report Normal [facility] ECG 12 LeadOrdered By: Leena Ponce on 06-01-2024 Atrial Rate [address] [facility] Work Phone: P [place] [address] [facility] Work Phone: [phone] P Offset [address] [facility] Work Phone: [phone] P Onset [address] [facility] Work Phone: [phone] OK Interval [address] [facility] Work Phone: [phone] Q Onset [address] [facility] Work Phone: [phone] QRS Count [address] [facility] Work Phone: [phone] QRS Duration [address] [facility] Work Phone: [phone] QT Interval [address] [facility] Work Phone: [phone] QTC Calculation(Bazett) 435 ms U [facility] Work Phone: [phone] QTC Frederic[place] [address] [facility] Work Phone: [phone] R [place] -[address] [facility] Work Phone: [phone] T [place] [address] [facility] Work Phone: [phone] T Offset [address] [facility] Work Phone: [phone] Ventricular Rate 86 BPM [facility] Work Phone: [phone] [facility] Work Phone: [phone] ECG 12 Leadon 06-01-2024 Normal sinus rhythm Left axis deviation Pulmonary disease pattern Septal infarct , age undetermined Abnormal ECG When compared with ECG of 09-JUL-2023 15:46, Nonspecific T wave abnormality no longer evident in Inferior leads See ED provider note for full interpretation and clinical correlation Confirmed by Leena Ponce ([id number]) on 06/01/2024 11:03:08 Leena Greene PA-C - 06/01/2024 Normal sinus rhythm Left axis deviation Pulmonary disease pattern Septal infarct , age undetermined Abnormal ECG When compared with ECG of 09-JUL-2023 15:46, Nonspecific T wave abnormality no longer evident in Inferior leads See ED provider note for full interpretation and clinical correlation Confirmed by Leena Ponce ([id number]) on 06/01/2024 11:03:[address] [facility] Work Phone: ECG 12-LEADon 05-31-2024 ECG 12-LEAD Ventricular Rate 86 Atrial Rate 86 P-R Interval 166 QRS Duration 74 Q-T Interval 364 QTC Calculation(Bazett) 435 P [place] 65 R [place] -71 T [place] 51 QRS Count 15 Q Onset 214 P Onset 131 P Offset 182 T Offset 396 QTC Fredericia 410 Diagnosis Normal sinus rhythm Left axis deviation Pulmonary disease pattern Septal infarct , age undetermined Abnormal ECG When compared with ECG of 09-JUL-2023 15:46, Nonspecific T wave abnormality no longer evident in Inferior leads See ED provider note for full interpretation and clinical correlation Confirmed by Leena Ponce ([id number]) on 06/01/2024 11:03:08 AM Normal [facility] FLUAV and FLUBV RNA MARY JO+prob e Nom (Unsp spec)on 05-31-2024 FLUAV RNA MARY JO+probe Ql (Resp) Detected Abnormal Not Detected [facility] FLUBV RNA MARY JO+probe Ql (Resp) Not detected Not Detected [facility] Interpretation and review of laboratory results Abnormal [facility] This assay is an in vitro diagnostic multiplex nucleic acid amplification test for the detection and discrimination of Influenza A & B from nasopharyngeal specimens, and has been validated for use at [facility]. Negative results do not preclude Influenza A/B infections, and should not be used as the sole basis for diagnosis, treatment, or other management decisions. If Influenza A/B and RSV PCR results are negative, testing for Parainfluenza virus, Adenovirus and Metapneumovirus is routinely performed for [facility] pediatric oncology and intensive care inpatients, and is available on other patients by placing an add-on request. [facility] FLUAV RNA MARY JO+probe Ql (Resp) Detected Abnormal Not Detected [facility] Comment on above: Order Comment: This assay is an in vitro diagnostic multiplex nucleic acid amplification test for the detection and discrimination of Influenza A & B from nasopharyngeal specimens, and has been validated for use at [facility]. Negative results do not preclude Influenza A/B infections, and should not be used as the sole basis for diagnosis, treatment, or other management decisions. If Influenza A/B and RSV PCR results are negative, testing for Parainfluenza virus, Adenovirus and Metapneumovirus is routinely performed for [facility] pediatric oncology and intensive care inpatients, and is available on other patients by placing an add-on request. Performed By: #### 4 8509-4 #### MALCOLM BALDERAS ([id number]) [facility] ([facility]) [address] [place] [address] FLUBV RNA MARY JO+probe Ql (Resp) Not detected Normal Not Detected [facility] Comment on above: Order Comment: This assay is an in vitro diagnostic multiplex nucleic acid amplification test for the detection and discrimination of Influenza A & B from nasopharyngeal specimens, and has been validated for use at [facility]. Negative results do not preclude Influenza A/B infections, and should not be used as the sole basis for diagnosis, treatment, or other management decisions. If Influenza A/B and RSV PCR results are negative, testing for Parainfluenza virus, Adenovirus and Metapneumovirus is routinely performed for [facility] pediatric oncology and intensive care inpatients, and is available on other patients by placing an add-on request. Performed By: #### 4 8509-4 #### MALCOLM BALDERAS ([id number]) [facility] ([facility]) [address] [place] [address] No Panel Informationon 05-[address] [facility] SARS coronavirus 2 RNAon SARS-CoV-2 (COVID-19) RNA MARY JO+probe Ql (Resp) Not detected Normal Not Detected [facility] Comment on above: Order Comment: This assay has received FDA Emergency Use Authorization (EUA) and is only authorized for the duration of time that circumstances exist to justify the authorization of the emergency use of in vitro diagnostic tests for the detection of SARS-CoV-2 virus and/or diagnosis of COVID-19 infection under section 564(b)(1) of the Act, 21 U.S.C. 360bbb-3(b)(1). This assay is an in vitro diagnostic nucleic acid amplification test for the qualitative detection of SARS-CoV-2 from nasopharyngeal specimens and has been validated for use at [facility]. Negative results do not preclude COVID-19 infections and should not be used as the sole basis for diagnosis, treatment, or other management decisions. Performed By: #### 9 4500-6 #### FOWLER SHERRIE ([id number]) [facility] ([facility]) [address] [place] [address] SARS-CoV-2 (COVID-19) RNA NA A+probe Ql (Resp)on 05-31-2024 Interpretation and review of laboratory results [facility] This assay has recei sammie FDA Emergency Use Authorization (EUA) and is only authorized for the duration of time that circumstances exist to justify the authorization of the emergency use of in vitro diagnostic tests for the detection of SARS-CoV-2 virus and/or diagnosis of COVID-19 infection under section 564(b)(1) of the Act, 21 U.S.C. 360bbb-3(b)(1). This assay is an in vitro diagnostic nucleic acid amplification test for the qualitative detection of SARS-CoV-2 from nasopharyngeal specimens and has been validated for use at [facility]. Negative results do not preclude COVID-19 infections and should not be used as the sole basis for diagnosis, treatment, or other management decisions. [facility] Sars-CoV-2 PCRon 05-31-2024 SARS-CoV-2 (COVID-19) RNA MARY JO+probe Ql (Resp) Not detected Not Detected [facility] XR CHEST 2 VIEWSon XR CHEST 2 VIEWS Interpreted By: David Buckner, STUDY: XR CHEST 2 VIEWS INDICATION: Signs/Symptoms:weakness . COMPARISON: July 09, 2023 ACCESSION NUMBER(S): [id number] ORDERING CLINICIAN: CLARKE DUNBAR FINDINGS: No consolidation, effusion, edema, pneumothorax. Heart size within normal limits. IMPRESSION: No evidence of acute intrathoracic abnormality. Signed by: David Garcia 05/31/2024 5:10 PM Dictation workstation: [id number] [facility] XR Chest 2 Viewson No evidence of acute intrathoracic abnormality. Signed by: David Garcia 05/31/2024 5:10 PM Dictation workstation: [id number] [facility]AL Interpreted By: David Buckner, STUDY: XR CHEST 2 VIEWS INDICATION: Signs/Symptoms:weakness . COMPARISON: July 09, 2023 ACCESSION NUMBER(S): [id number] ORDERING CLINICIAN: CLARKE DUNBAR FINDINGS: No consolidation, effusion, edema, pneumothorax. Heart size within normal limits. [facility] David Garcia MD - 05/31/2024 Interpreted By: David Garcia, STUDY: XR CHEST 2 VIEWS INDICATION: Signs/Symptoms:weakness . COMPARISON: July 09, 2023 ACCESSION NUMBER(S): [id number] ORDERING CLINICIAN: CLARKE DUNBAR FINDINGS: No consolidation, effusion, edema, pneumothorax. Heart size within normal limits. IMPRESSION: No evidence of acute intrathoracic abnormality. Signed by: David Gracia 05/31/2024 5:10 PM Dictation workstation: [id number] [facility] Work Phone: Radiology Study observation (narrative) [facility] Work Phone: XR Chest 2 ViewsOrdered By: David Garcia on 05-31-[address] [facility] Work Phone: GAYLE + Protein Elect, Serumon 05-28-2024 Albumin [Mass/Vol] 3.8 g/dL Normal 2.9-4.4 [facility] Comment on above: Order Comment: CASTRO OWN Performed By: #### L 3100.3425 ####[facility] [address] [place], [place], [id number] Albumin/Globulin [Mass ratio] 1.0 {ratio} Normal 0.7-1.7 [facility] Comment on above: Order Comment: CASTRO OWN Performed By: #### L 3100.3425 ####[facility] [address] [place], [address] WPMOO-2-YSYR 0.3 g/dL Normal 0.0-0.4 [facility] Comment on above: Order Comment: NUNKN OWN Performed By: #### L 3100.3425 ####[facility] [address] [place], [address] HHOLZ-2-CIVX 1.0 g/dL Normal 0.4-1.0 [facility] Comment on above: Order Comment: NUNKN OWN Performed By: #### L 3100.3425 ####[facility] [address] [place], [address] BETA GLOBULIN 1.1 g/dL Normal 0.7-1.3 [facility] Comment on above: Order Comment: NUNKN OWN Performed By: #### L 3100.3425 ####[facility] [address] [place], [address] GAMMA GLOBULIN 1.5 g/dL Normal 0.4-1.8 [facility] Comment on above: Order Comment: NUNKN OWN Performed By: #### L 3100.3425 ####[facility] [address] [place], [address] Globulin (S) [Mass/Vol] 3.9 g/dL Normal 2.2-3.9 [facility] Comment on above: Order Comment: NUNKN OWN Performed By: #### L 3100.3425 ####[facility] [address] [place], [address] GAYLE RESULT,S Comment Abnormal . 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 PLEASE NOTE: Samples from patients receiving DARZALEX(R)(daratumumab) or SARCLISA(R)(isatuximab-irfc) treatmentcan appear as an IgG kappa and mask a complete response(CR). If this patient is receiving these therapies, thisIFE assay interference can be removed by ordering testnumber [id number], Daratumumab-Specific,Serum or [id number], Isatuximab-Specific,Serum and submitting a new sample for testing or bycalling the lab to add this test to the current sample. Performed By: #### L 3100.3425 ####[facility] [address] [place], [address] IMMUNOGLOB A QN 14 mg/dL Low 64-422 [facility] Comment on above: Order Comment: CASTRO OWN Result Comment: Resu lt confirmed on concentration. Performed By: #### L 3100.3425 ####[facility] [address] [place], [address] IMMUNOGLOB G QN 1664 mg/dL High 586-1602 [facility] Comment on above: Order Comment: CASTRO OWN Performed By: #### L 3100.3425 ####[facility] [address] [place], [address] IMMUNOGLOB M QN 9 mg/dL Low 26-217 [facility] Comment on above: Order Comment: SERANSAURAV OWN Result Comment: Resu lt confirmed on concentration. Performed By: #### L 3100.3425 ####[facility] [address] [place], [address] M-Adolfo 1.3 g/dL Abnormal Not Observed [facility] Comment on above: Order Comment: CASTRO OWN Performed By: #### L 3100.3425 ####[facility] [address] [place], [address] NOTE: Comment Normal . [facility] Comment on above: Order Comment: CASTRO OWN Result Comment: Prot ein electrophoresis scan will follow via computer,mail, or massage operator delivery.Performed at: [address] [id number] Director: Chris Amos PhD, Phone: [phone] Performed By: #### L 3100.3425 ####[facility] [address] [place], [address] Protein [Mass/Vol] 7.7 g/dL Normal 6.0-8.5 [facility] Comment on above: Order Comment: CASTRO OWN Performed By: #### L 3100.3425 ####[facility] [address] [place], [address] Vitamin B12on 05-10-2024 Cobalamin (Vitamin B12) [Mass/Vol] 675 pg/mL Normal 211-911 [facility] Comment on above: Order Comment: HUBERT Mcnair ADD TO BLOOD IN LAB THANK YOU!! Performed By: #### L 503.0105, L503.6550, L503.6030 ####[facility] [address] [place], [address] CBC W/Diff, Automatedon 04-22 Absolute Lymph 1.77 X10 3/uL Normal 0.83-4.51 [facility] Comment on above: Performed By: #### L 100.0100, L500.4050 ####[facility] [address] [place], [address] Absolute Neut 1.3 X10 3/uL Low 2.0-7.7 [facility] Comment on above: Performed By: #### L 100.0100, L500.4050 ####[facility] [address] [place], [address] Basophils/100 WBC (Bld) 0.5 % Normal 0-1 [facility] Comment on above: Performed By: #### L 100.0100, L500.4050 ####[facility] [address] [place], [address] Eosinophils/100 WBC (Bld) 4.8 % Normal 0-5 [facility] Comment on above: Performed By: #### L 100.0100, L500.4050 ####[facility] [address] [place], [address] Erythrocyte distribution width (RBC) [Ratio] 15.2 % High 11.6-14.6 [facility] Comment on above: Performed By: #### L 100.0100, L500.4050 ####[facility] [address] [place], [address] Hematocrit (Bld) [Volume fraction] 33.4 % Low 37-47 [facility] Comment on above: Performed By: #### L 100.0100, L500.4050 ####[facility] [address] [place], [address] Hemoglobin (Bld) [Mass/Vol] 10.9 g/dL Low 12.0-15.0 [facility] Comment on above: Performed By: #### L 100.0100, L500.4050 ####[facility] [address] [place], [address] IG% 0.300 Normal 0.0-0.9 [facility] Comment on above: Result Comment: IG% - Immature Granulocytes (promyelocytes, myelocytes andmetamyelocytes) > 1% indicates that a LEFT SHIFT is Present. Performed By: #### L 100.0100, L500.4050 ####[facility] [address] [place], [address] Lymphocytes/100 WBC (Bld) 47.1 % High 19-41 [facility] Comment on above: Performed By: #### L 100.0100, L500.4050 ####[facility] [address] [place], [address] MCH (RBC) [Entitic mass] 29.6 pg Normal 27.0-32.0 [facility] Comment on above: Performed By: #### L 100.0100, L500.4050 ####[facility] [address] [place], [address] MCHC (RBC) [Mass/Vol] 32.6 g/dL Normal 32-36 [facility] Comment on above: Performed By: #### L 100.0100, L500.4050 ####[facility] [address] [place], [address] MCV (RBC) [Entitic vol] 90.8 fL Normal 81-99 [facility] Comment on above: Performed By: #### L 100.0100, L500.4050 ####[facility] [address] [place], [address] Monocytes/100 WBC (Bld) 13.8 % High 0-10 [facility] Comment on above: Performed By: #### L 100.0100, L500.4050 ####[facility] [address] [place], [address] Neutrophils/100 WBC (Bld) 33.5 % Low 47-70 [facility] Comment on above: Performed By: #### L 100.0100, L500.4050 ####[facility] [address] [place], [address] Nucleated RBC (Bld) [#/Vol] 0 10*3/uL Normal 0-5 [facility] Comment on above: Performed By: #### L 100.0100, L500.4050 ####[facility] [address] [place], [address] Platelet mean volume (Bld) [Entitic vol] 9.7 fL Normal 6.2-12.0 [facility] Comment on above: Performed By: #### L 100.0100, L500.4050 ####[facility] [address] [place], [address] Platelets (Bld) [#/Vol] 263 10*3/uL Normal 150-450 [facility] Comment on above: Performed By: #### L 100.0100, L500.4050 ####[facility] [address] [place], [address] RBC (Bld) [#/Vol] 3.68 10*6/uL Low 4.2-5.4 [facility] Comment on above: Performed By: #### L 100.0100, L500.4050 ####[facility] [address] [place], [address] RDW SD 50.4 fl High 35.1-43.9 [facility] Comment on above: Performed By: #### L 100.0100, L500.4050 ####[facility] [address] [place], [address] WBC (Bld) [#/Vol] 3.8 10*3/uL Low 4.4-11.0 [facility] Comment on above: Performed By: #### L 100.0100, L500.4050 ####[facility] [address] [place], [address] Comprehensive Metabolic Prof [facility] 05-08-2024 Albumin [Mass/Vol] 3.4 g/dL Normal 3.2-5.0 [facility] Comment on above: Performed By: #### L 100.0100, L500.4050 ####[facility] [address] [place], [address] Albumin/Globulin [Mass ratio] 0.8 {ratio} Low 0.9-2.4 [facility] Comment on above: Performed By: #### L 100.0100, L500.4050 ####[facility] [address] [place], [address] ALK P 90 U/L Normal 45-117 [facility] Comment on above: Performed By: #### L 100.0100, L500.4050 ####[facility] [address] [place], [address] ALT [Catalytic activity/Vol] 22 U/L Normal 13-56 [facility] Comment on above: Performed By: #### L 100.0100, L500.4050 ####[facility] [address] [place], [address] AST [Catalytic activity/Vol] 17 U/L Normal 15-37 [facility] Comment on above: Performed By: #### L 100.0100, L500.4050 ####[facility] [address] [place], [address] Bilirubin [Mass/Vol] 0.40 mg/dL Normal 0.20-1.00 [facility] Comment on above: Result Comment: For patients on eltrombopag therapy, use of Dimension [place] TBIL is not recommended. Performed By: #### L 100.0100, L500.4050 ####[facility] [address] [place], [address] BUN/CRE 18.8 RATIO Normal 10-20 [facility] Comment on above: Performed By: #### L 100.0100, L500.4050 ####[facility] [address] [place], [address] CA,Total 9.7 mg/dL Normal 8.5-10.1 [facility] Comment on above: Performed By: #### L 100.0100, L500.4050 ####[facility] [address] [place], [address] Chloride [Moles/Vol] 108 mmol/L High 98-107 [facility] Comment on above: Performed By: #### L 100.0100, L500.4050 ####[facility] [address] [place], [address] CO2 [Moles/Vol] 28.0 mmol/L Normal 21.0-32.0 [facility] Comment on above: Performed By: #### L 100.0100, L500.4050 ####[facility] [address] [place], [address] Creatinine [Mass/Vol] 0.80 mg/dL Normal 0.55-1.02 [facility] Comment on above: Result Comment: The validity of the calculated GFR GFRAA in patients over70 years has not been determined. Clinical correlation isessential. Performed By: #### L 100.0100, L500.4050 ####[facility] [address] [place], [address] ECRCL 52.32 ml/min Normal [facility] Comment on above: Performed By: #### L 100.0100, L500.4050 ####[facility] [address] [place], [address] EST GFR - AA 90 mL/min Normal >60 [facility] Comment on above: Result Comment: Afri can Filipino GFR Calc Performed By: #### L 100.0100, L500.4050 ####[facility] [address] [place], [address] GAP 3 Low 5-15 [facility] Comment on above: Performed By: #### L 100.0100, L500.4050 ####[facility] [address] [place], [address] GFR/1.73 sq M.predicted among non-blacks MDRD (S/P/Bld) [Vol rate/Area] 75 mL/min/{1.73_m2} Normal >60 [facility] Comment on above: Result Comment: Non- GFR Calc Performed By: #### L 100.0100, L500.4050 ####[facility] [address] [place], [address] Globulin (S) [Mass/Vol] 4.4 g/dL High 2.2-4.2 [facility] Comment on above: Performed By: #### L 100.0100, L500.4050 ####[facility] [address] [place], [address] Glucose [Mass/Vol] 107 mg/dL High 74-106 [facility] Comment on above: Result Comment: Fast ing Glucose result from 100 to 125 mg/dLsuggests IMPAIRED HOMEOSTASIS per A.D.A. criteria. Performed By: #### L 100.0100, L500.4050 ####[facility] [address] [place], [address] Potassium [Moles/Vol] 4.1 mmol/L Normal 3.5-5.1 [facility] Comment on above: Performed By: #### L 100.0100, L500.4050 ####[facility] [address] [place], [address] Sodium [Moles/Vol] 139 mmol/L Normal 136-145 [facility] Comment on above: Performed By: #### L 100.0100, L500.4050 ####[facility] [address] [place], [address] T PROT 7.8 g/dL Normal 6.4-8.2 [facility] Comment on above: Performed By: #### L 100.0100, L500.4050 ####[facility] [address] [place], [address] Urea nitrogen [Mass/Vol] 15 mg/dL Normal 7-18 [facility] Comment on above: Performed By: #### L 100.0100, L500.4050 ####[facility] [address] [place], [address] Ferritin measurementOrdered By: Yusuf Leyva on 05-08-2024 Ferritin [Mass/Vol] 119 ng/mL Normal 8-252 [facility] Comment on above: Order Comment: PLEAS E ADD TO BLOOD IN LAB THANK YOU!! Performed By: #### L 503.0105, L503.6550, L503.6030 ####[facility] [address] [place], [address] Iron measurement (mass/mass) Ordered By: Yusuf Leyva on 05-08-2024 Iron [Mass/Vol] 70 ug/dL Normal 50-170 [facility] Comment on above: Order Comment: PLEAS E ADD TO BLOOD IN LAB THANK YOU!! Performed By: #### L 503.0105, L503.6550, L503.6030 ####[facility] [address] [place], [address] Iron (Unsp spec) [Mass/Mass] 70 ug/dL 50-170 [facility] Iron saturation [Mass fracti on]Ordered By: Yusuf Leyva on 05-08-2024 Iron Saturation 15.3 % 15.0-55.0 [facility] Iron+Iron Binding Capacityon 05-08-2024 IRON SATURATION 15.3 Normal 15.0-55.0 [facility] Comment on above: Order Comment: PLEAS E ADD TO BLOOD IN LAB THANK YOU!! Performed By: #### L 503.0105, L503.6550, L503.6030 ####[facility] [address] [place], [address] TIBC 457 ug/dL High 250-450 [facility] Comment on above: Order Comment: PLEAS E ADD TO BLOOD IN LAB THANK YOU!! Performed By: #### L 503.0105, L503.6550, L503.6030 ####[facility] [address] [place], [address] Oncology Visit Reporton 04-22 Oncology Visit Report Normal [facility] Serum or plasma iron saturat ion measurement (mass fraction)Ordered By: Yusuf Leyva on 05-08-2024 Iron saturation [Mass fraction] 15.3 % 15.0-55.0 [facility] TIBCOrdered By: Yusuf Mcallister dale on 05-08-2024 Total Iron Binding Capacity 457 ug/dL High 250-450 [facility] Vitamin B12 measurementOrder ed By: Yusuf Jarret on 05-08-2024 Cobalamin (Vitamin B12) [Mass/Vol] 675 pg/mL 211-911 [facility] GAYLE + Protein Elect, Serumon 04-26-2024 Albumin [Mass/Vol] 3.6 g/dL Normal 2.9-4.4 [facility] Comment on above: Order Comment: N Performed By: #### L 3100.3425, L3130.0010 ####[facility] [address] [place], [address] Albumin/Globulin [Mass ratio] 1.0 {ratio} Normal 0.7-1.7 [facility] Comment on above: Order Comment: N Performed By: #### L 3100.3425, L3130.0010 ####[facility] [address] [place], [address] FPRVH-6-TEUI 0.3 g/dL Normal 0.0-0.4 [facility] Comment on above: Order Comment: N Performed By: #### L 3100.3425, L3130.0010 ####[facility] [address] [place], [address] QEHQZ-8-QIVR 1.1 g/dL High 0.4-1.0 [facility] Comment on above: Order Comment: N Performed By: #### L 3100.3425, L3130.0010 ####[facility] [address] [place], [address] BETA GLOBULIN 1.0 g/dL Normal 0.7-1.3 [facility] Comment on above: Order Comment: N Performed By: #### L 3100.3425, L3130.0010 ####[facility] [address] [place], [address] GAMMA GLOBULIN 1.3 g/dL Normal 0.4-1.8 [facility] Comment on above: Order Comment: N Performed By: #### L 3100.3425, L3130.0010 ####[facility] [address] [place], [address] Globulin (S) [Mass/Vol] 3.7 g/dL Normal 2.2-3.9 [facility] Comment on above: Order Comment: N Performed By: #### L 3100.3425, L3130.0010 ####[facility] [address] [place], [address] GAYLE RESULT,S Comment Abnormal . 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 PLEASE NOTE: Samples from patients receiving DARZALEX(R)(daratumumab) or SARCLISA(R)(isatuximab-irfc) treatmentcan appear as an IgG kappa and mask a complete response(CR). If this patient is receiving these therapies, thisIFE assay interference can be removed by ordering testnumber [id number], Daratumumab-Specific,Serum or [id number]-Hajehqvtmlhvfl, Isatuximab-Specific,Serum and submitting a new sample for testing or bycalling the lab to add this test to the current sample. Performed By: #### L 3100.3425, L3130.0010 ####[facility] [address] [place], [address] IMMUNOGLOB A QN 18 mg/dL Low 64-422 [facility] Comment on above: Order Comment: N Result Comment: Resu lt confirmed on concentration. Performed By: #### L 3100.3425, L3130.0010 ####[facility] [address] [place], [address] IMMUNOGLOB G QN 1416 mg/dL Normal 586-1602 [facility] Comment on above: Order Comment: N Performed By: #### L 3100.3425, L3130.0010 ####[facility] [address] [place], [address] IMMUNOGLOB M QN 11 mg/dL Low 26-217 [facility] Comment on above: Order Comment: N Result Comment: Resu lt confirmed on concentration. Performed By: #### L 3100.3425, L3130.0010 ####[facility] [address] [place], [address] M-Adolfo 1.0 g/dL Abnormal Not Observed [facility] Comment on above: Order Comment: N Performed By: #### L 3100.3425, L3130.0010 ####[facility] [address] [place], [address] NOTE: Comment Normal . [facility] Comment on above: Order Comment: N Result Comment: Prot ein electrophoresis scan will follow via computer,mail, or massage operator delivery. Performed By: #### L 3100.3425, L3130.0010 ####[facility] [address] [place], [address] Protein [Mass/Vol] 7.3 g/dL Normal 6.0-8.5 [facility] Comment on above: Order Comment: N Performed By: #### L 3100.3425, L3130.0010 ####[facility] [address] [place], [address] [place] L[employer] Chainson 04-26-2024 FR KAPPA LT CHN 8.6 mg/L Normal 3.3-19.4 [facility] Comment on above: Order Comment: N Performed By: #### L 3100.3425, L3130.0010 ####[facility] [address] [place], [address] FR LAMBDA LT CH 3.5 mg/L Abnormal 5.7-26.3 [facility] Comment on above: Order Comment: N Performed By: #### L 3100.3425, L3130.0010 ####[facility] [address] [place], [address] KAPPA/LAMBDA % 2.46 Abnormal 0.26-1.65 [facility] Comment on above: Order Comment: N Result Comment: Perf ormed at: [facility] [place] [id number] [place], [place] [id number] Director: Chris Amos PhD, Phone: [phone] Performed By: #### L 3100.3425, L3130.0010 ####[facility] [address] [place], [address] CBC W/Diff, Automatedon 03-23 Absolute Lymph 2.51 X10 3/uL Normal 0.83-4.51 [facility] Comment on above: Performed By: #### L 100.0100, L500.4050 ####[facility] [address] [place], [address] Absolute Neut 2.1 X10 3/uL Normal 2.0-7.7 [facility] Comment on above: Performed By: #### L 100.0100, L500.4050 ####[facility] [address] [place], [address] Basophils/100 WBC (Bld) 0.6 % Normal 0-1 [facility] Comment on above: Performed By: #### L 100.0100, L500.4050 ####[facility] [address] [place], [address] Eosinophils/100 WBC (Bld) 3.2 % Normal 0-5 [facility] Comment on above: Performed By: #### L 100.0100, L500.4050 ####[facility] [address] [place], [address] Erythrocyte distribution width (RBC) [Ratio] 15.6 % High 11.6-14.6 [facility] Comment on above: Performed By: #### L 100.0100, L500.4050 ####[facility] [address] [place], [address] Hematocrit (Bld) [Volume fraction] 35.1 % Low 37-47 [facility] Comment on above: Performed By: #### L 100.0100, L500.4050 ####[facility] [address] [place], [address] Hemoglobin (Bld) [Mass/Vol] 11.7 g/dL Low 12.0-15.0 [facility] Comment on above: Performed By: #### L 100.0100, L500.4050 ####[facility] [address] [place], [address] IG% 0.200 Normal 0.0-0.9 [facility] Comment on above: Result Comment: IG% - Immature Granulocytes (promyelocytes, myelocytes andmetamyelocytes) > 1% indicates that a LEFT SHIFT is Present. Performed By: #### L 100.0100, L500.4050 ####[facility] [address] [place], [address] Lymphocytes/100 WBC (Bld) 46.8 % High 19-41 [facility] Comment on above: Performed By: #### L 100.0100, L500.4050 ####[facility] [address] [place], [address] MCH (RBC) [Entitic mass] 30.1 pg Normal 27.0-32.0 [facility] Comment on above: Performed By: #### L 100.0100, L500.4050 ####[facility] [address] [place], [address] MCHC (RBC) [Mass/Vol] 33.3 g/dL Normal 32-36 [facility] Comment on above: Performed By: #### L 100.0100, L500.4050 ####[facility] [address] [place], [address] MCV (RBC) [Entitic vol] 90.2 fL Normal 81-99 [facility] Comment on above: Performed By: #### L 100.0100, L500.4050 ####[facility] [address] [place], [address] Monocytes/100 WBC (Bld) 10.6 % High 0-10 [facility] Comment on above: Performed By: #### L 100.0100, L500.4050 ####[facility] [address] [place], [address] Neutrophils/100 WBC (Bld) 38.6 % Low 47-70 [facility] Comment on above: Performed By: #### L 100.0100, L500.4050 ####[facility] [address] [place], [address] Nucleated RBC (Bld) [#/Vol] 0 10*3/uL Normal 0-5 [facility] Comment on above: Performed By: #### L 100.0100, L500.4050 ####[facility] [address] [place], [address] Platelet mean volume (Bld) [Entitic vol] 9.3 fL Normal 6.2-12.0 [facility] Comment on above: Performed By: #### L 100.0100, L500.4050 ####[facility] [address] [place], [address] Platelets (Bld) [#/Vol] 294 10*3/uL Normal 150-450 [facility] Comment on above: Performed By: #### L 100.0100, L500.4050 ####[facility] [address] [place], [address] RBC (Bld) [#/Vol] 3.89 10*6/uL Low 4.2-5.4 [facility] Comment on above: Performed By: #### L 100.0100, L500.4050 ####[facility] [address] [place], [address] RDW SD 50.1 fl High 35.1-43.9 [facility] Comment on above: Performed By: #### L 100.0100, L500.4050 ####[facility] [address] [place], [address] WBC (Bld) [#/Vol] 5.4 10*3/uL Normal 4.4-11.0 [facility] Comment on above: Performed By: #### L 100.0100, L500.4050 ####[facility] [address] [place], [address] Comprehensive Metabolic Prof [facility] 04-10-2024 Albumin [Mass/Vol] 4.0 g/dL Normal 3.2-5.0 [facility] Comment on above: Performed By: #### L 100.0100, L500.4050 ####[facility] [address] [place], [address] Albumin/Globulin [Mass ratio] 0.9 {ratio} Normal 0.9-2.4 [facility] Comment on above: Performed By: #### L 100.0100, L500.4050 ####[facility] [address] [place], [address] ALK P 107 U/L Normal 45-117 [facility] Comment on above: Performed By: #### L 100.0100, L500.4050 ####[facility] [address] [place], [address] ALT [Catalytic activity/Vol] 38 U/L Normal 13-56 [facility] Comment on above: Performed By: #### L 100.0100, L500.4050 ####[facility] [address] [place], [address] AST [Catalytic activity/Vol] 27 U/L Normal 15-37 [facility] Comment on above: Performed By: #### L 100.0100, L500.4050 ####[facility] [address] [place], [address] Bilirubin [Mass/Vol] 0.60 mg/dL Normal 0.20-1.00 [facility] Comment on above: Result Comment: For patients on eltrombopag therapy, use of Dimension [place] TBIL is not recommended. Performed By: #### L 100.0100, L500.4050 ####[facility] [address] [place], [address] BUN/CRE 16.1 RATIO Normal 10-20 [facility] Comment on above: Performed By: #### L 100.0100, L500.4050 ####[facility] [address] [place], [address] CA,Total 9.9 mg/dL Normal 8.5-10.1 [facility] Comment on above: Performed By: #### L 100.0100, L500.4050 ####[facility] [address] [place], [address] Chloride [Moles/Vol] 106 mmol/L Normal 98-107 [facility] Comment on above: Performed By: #### L 100.0100, L500.4050 ####[facility] [address] [place], [address] CO2 [Moles/Vol] 28.0 mmol/L Normal 21.0-32.0 [facility] Comment on above: Performed By: #### L 100.0100, L500.4050 ####[facility] [address] [place], [address] Creatinine [Mass/Vol] 0.87 mg/dL Normal 0.55-1.02 [facility] Comment on above: Result Comment: The validity of the calculated GFR GFRAA in patients over70 years has not been determined. Clinical correlation isessential. Performed By: #### L 100.0100, L500.4050 ####[facility] [address] [place], [address] ECRCL 49.06 ml/min Normal [facility] Comment on above: Performed By: #### L 100.0100, L500.4050 ####[facility] [address] [place], [address] EST GFR - AA 82 mL/min Normal >60 [facility] Comment on above: Result Comment: Afri can Filipino GFR Calc Performed By: #### L 100.0100, L500.4050 ####[facility] [address] [place], [address] GAP 5 Normal 5-15 [facility] Comment on above: Performed By: #### L 100.0100, L500.4050 ####[facility] [address] [place], [address] GFR/1.73 sq M.predicted among non-blacks MDRD (S/P/Bld) [Vol rate/Area] 68 mL/min/{1.73_m2} Normal >60 [facility] Comment on above: Result Comment: Non- GFR Calc Performed By: #### L 100.0100, L500.4050 ####[facility] [address] [place], [address] Globulin (S) [Mass/Vol] 4.3 g/dL High 2.2-4.2 [facility] Comment on above: Performed By: #### L 100.0100, L500.4050 ####[facility] [address] [place], [address] Glucose [Mass/Vol] 113 mg/dL High 74-106 [facility] Comment on above: Result Comment: Fast ing Glucose result from 100 to 125 mg/dLsuggests IMPAIRED HOMEOSTASIS per A.D.A. criteria. Performed By: #### L 100.0100, L500.4050 ####[facility] [address] [place], [address] Potassium [Moles/Vol] 4.0 mmol/L Normal 3.5-5.1 [facility] Comment on above: Performed By: #### L 100.0100, L500.4050 ####[facility] [address] [place], [address] Sodium [Moles/Vol] 139 mmol/L Normal 136-145 [facility] Comment on above: Performed By: #### L 100.0100, L500.4050 ####[facility] [address] [place], [address] T PROT 8.3 g/dL High 6.4-8.2 [facility] Comment on above: Performed By: #### L 100.0100, L500.4050 ####[facility] [address] [place], [address] Urea nitrogen [Mass/Vol] 14 mg/dL Normal 7-18 [facility] Comment on above: Performed By: #### L 100.0100, L500.4050 ####[facility] [address] [place], [address] Oncology Visit Reporton 03-23 Oncology Visit Report Normal [facility] HbA1c (Bld) [Mass fraction]o n 04-06-2024 Average glucose Estimated from glycated hemoglobin (Bld) [Mass/Vol] 131 mg/dL Normal Not Established [facility] Comment on above: Order Comment: Diagn osis of Diabetes-Adults Non-Diabetic: < or = 5.6% Increased risk for developing diabetes: 5.7-6.4% Diagnostic of diabetes: > or = 6.5% Performed By: #### 4 548-4 #### NASIR Martinez ([id number]) [facility] ([facility]) [address] [id number] Hemoglobin A1c/Hemoglobin.to kallie 04-06-2024 HbA1c (Bld) [Mass fraction] 6.2 % High See comment [facility] Comment on above: Order Comment: Diagn osis of Diabetes-Adults Non-Diabetic: < or = 5.6% Increased risk for developing diabetes: 5.7-6.4% Diagnostic of diabetes: > or = 6.5% Performed By: #### 4 548-4 #### NASIR Martinez ([id number]) [facility] ([facility]) [address] [place], [place] [id number] CT for calcium scoring WO co ntrast and CTA W contrast IV Heart and coronary arterieson 08-18-2023 Coronary artery calc ium score of 192.66 Additional findings as above. Coronary artery calcium scoring may be helpful in predicting the risk for future coronary heart disease events. According to the [employer] Clinical Expert Consensus Task Force, such testing provides important prognostic information in patients with more than one coronary heart disease risk factor. The coronary artery calcium score correlates with the annual risk of a non-fatal myocardial infarction or coronary heart disease . Coronary artery score Annual Risk 0-99 0.4% 100-399 1.3% >400 2.4% These three breakpoints correspond to lower, intermediate and high risk states for future coronary events. Such information should be used, along with appropriate clinical judgment, to make decisions regarding the intensity of risk factor management strategies to treat blood lipids and to modify other non-lipid coronary risk factors. Reference: Ashby P et al. Circulation. 2007; 115:402-426 MACRO: Critical Finding: See findings. Notification was initiated on 08/18/2023 at 5:36 pm by Mitul Sullivan. (-YCF-) Instructions: Signed by: Mitul Sullivan 08/18/2023 5:37 PM Dictation workstation: [id number] [facility] Interpreted By: Mitul Saxena, STUDY: CT CARDIAC SCORING WO IV CONTRAST; 08/18/2023 1:39 pm INDICATION: Signs/Symptoms:SOB on exertion. COMPARISON: None. ACCESSION NUMBER(S): [id number] ORDERING CLINICIAN: RYAN COUCH TECHNIQUE: Using prospective ECG gating, CT scan of the coronary arteries was performed without intravenous contrast. Coronary calcium scoring was performed according to the method of Agatston. FINDINGS: The score and distribution of calcium in the coronary arteries is as follows: LM 15.24 LAD 87.4 LCx 60.01 RCA 30.01 Total 192.66 The heart size is normal and there is no pericardial effusion. Approximate 1.5 cm radiodensities are present at the mid lungs on the paring machine operator view. That on the left is probably from breast calcification. Than on the right is indeterminate, as this level did not appear to be included on the CT images. This may be due to atelectasis as corresponding opacity was not evident on plain films of 07/09/2023. However, follow-up plain film would be recommended for more definitive evaluation. There is mild pleural thickening at the left mid lung anteriorly, probably due to fibrosis. The included lungs by CT otherwise are clear.There is no significant mediastinal or hilar adenopathy. The visualized upper abdominal contents are within normal limits. Of note is a 1.9 cm lytic defect of a thoracic vertebrae on image 17 of series 2, with loss of the cortical margin at the spinal canal. Given the patient's history this is most likely due to myeloma or plasmacytoma. MMODAL Mitul Sullivan MD - 08/18/2023 Interpreted By: Mitul Sullivan, STUDY: CT CARDIAC SCORING WO IV CONTRAST; 08/18/2023 1:39 pm INDICATION: Signs/Symptoms:SOB on exertion. COMPARISON: None. ACCESSION NUMBER(S): [id number] ORDERING CLINICIAN: RYAN COUCH TECHNIQUE: Using prospective ECG gating, CT scan of the coronary arteries was performed without intravenous contrast. Coronary calcium scoring was performed according to the method of Agatston. FINDINGS: The score and distribution of calcium in the coronary arteries is as follows: LM 15.24 LAD 87.4 LCx 60.01 RCA 30.01 Total 192.66 The heart size is normal and there is no pericardial effusion. Approximate 1.5 cm radiodensities are present at the mid lungs on the paring machine operator view. That on the left is probably from breast calcification. Than on the right is indeterminate, as this level did not appear to be included on the CT images. This may be due to atelectasis as corresponding opacity was not evident on plain films of 07/09/2023. However, follow-up plain film would be recommended for more definitive evaluation. There is mild pleural thickening at the left mid lung anteriorly, probably due to fibrosis. The included lungs by CT otherwise are clear.There is no significant mediastinal or hilar adenopathy. The visualized upper abdominal contents are within normal limits. Of note is a 1.9 cm lytic defect of a thoracic vertebrae on image 17 of series 2, with loss of the cortical margin at the spinal canal. Given the patient's history this is most likely due to myeloma or plasmacytoma. IMPRESSION: Coronary artery calcium score of 192.66 Additional findings as above. Coronary artery calcium scoring may be helpful in predicting the risk for future coronary heart disease events. According to the [employer] [employer] Clinical Expert Consensus Task Force, such testing provides important prognostic information in patients with more than one coronary heart disease risk factor. The coronary artery calcium score correlates with the annual risk of a non-fatal myocardial infarction or coronary heart disease . Coronary artery score Annual Risk 0-99 0.4% 100-399 1.3% >400 2.4% These three breakpoints correspond to lower, intermediate and high risk states for future coronary events. Such information should be used, along with appropriate clinical judgment, to make decisions regarding the intensity of risk factor management strategies to treat blood lipids and to modify other non-lipid coronary risk factors. Reference: Ashby P et al. Circulation. 2007; 115:402-426 MACRO: Critical Finding: See findings. Notification was initiated on 08/18/2023 at 5:36 pm by Mitul Sullivan. (-YCF-) Instructions: Signed by: Mitul Sullivan 08/18/2023 5:37 PM Dictation workstation: [id number] [facility] Work Phone: Radiology Study observation (narrative) [facility] Work Phone: CT for calcium scoring WO co ntrast and CTA W contrast IV Heart and coronary arteriesOrdered By: Mitul Sullivan on 08-18-[address] [facility] Work Phone: US Heart TransthoracicOrdere d By: Zafar Parson on 08-18-2023 Aortic Valve Area by Continuity of Peak Velocity 1.[address] [facility] Work Phone: [phone] Aortic Valve Area by Continuity of VTI 1.[address] [facility] Work Phone: [phone] AV mn grad 12.[address] [facility] Work Phone: [phone] AV pk grad 29.[address] [facility] Work Phone: [phone] AV pk noman 2.73 m/s [facility] Work Phone: [phone] LA vol index A/L 16.7 ml/m2 [facility] Work Phone: [phone] LV A4C EF 65.[address] [facility] Work Phone: [phone] LV biplane EF 70 % [facility] Work Phone: [phone] LVIDd 4.[address] [facility] Work Phone: [phone] LVOT diam 1.[address] [facility] Work Phone: [phone] MV E/A ratio 0.[address] [facility] Work Phone: [phone] RV free wall pk S' 20.40 cm/s [facility] Work Phone: [phone] [facility] Work Phone: [phone] [place] [address] ext-[phone], TRANSTHORACIC ECHOCARDIOGRAM REPORT Patient Name: LAURI Brunson Physician: [id number] Zafar Parson MD Study Date: 08/18/2023 Ordering Provider: [id number] RYAN COUCH MRN/PID: [id number] Fellow: Nurse: Date of /Age: 1002/25/1950 / 73 years Journey Lineman: Sheldon Mitchell RDCS Gender: F Additional Staff: Height: 144.78 cm Admit Date: Weight: 78.02 kg Admission Status: Outpatient BSA / BMI: 1.69 m2 / 37.22 Department Location: [facility] Echo Lab kg/m2 Blood Pressure: 164 /69 mmHg Study Type: TRANSTHORACIC ECHO (TTE) COMPLETE Diagnosis/ICD: Cardiac murmur, unspecified-R01.1 CPT Codes: Echo Complete w Full Doppler-89260 Study Detail: The following Echo studies were performed: 2D, M-Mode, Doppler and color flow. PHYSICIAN INTERPRETATION: Left Ventricle: Left ventricular systolic function is hyperdynamic, with an estimated ejection fraction of 65-70%. There are no regional wall motion abnormalities. The left ventricular cavity size is normal. Spectral Doppler shows an impaired relaxation pattern of left ventricular diastolic filling. Left Atrium: The left atrium is normal in size. Right Ventricle: The right ventricle is normal in size. There is normal right ventricular global systolic function. Right Atrium: The right atrium is normal in size. Aortic Valve: The aortic valve was not well visualized. There is no evidence of aortic valve regurgitation. The peak instantaneous gradient of the aortic valve is 29.8 mmHg. The mean gradient of the aortic valve is 12.0 mmHg. Mitral Valve: The mitral valve was not well visualized. There is no evidence of mitral valve regurgitation. Tricuspid Valve: The tricuspid valve was not well visualized. No evidence of tricuspid regurgitation. Pulmonic Valve: The pulmonic valve is not well visualized. The pulmonic valve regurgitation was not well visualized. Pericardium: There is no pericardial effusion noted. There is a pericardial fat pad present. Aorta: The aortic root was not well visualized. Systemic Veins: The inferior vena cava appears to be of normal size. There is IVC inspiratory collapse greater than 50%. CONCLUSIONS: 1. Left ventricular systolic function is hyperdynamic with a 65-70% estimated ejection fraction. 2. Spectral Doppler shows an impaired relaxation pattern of left ventricular diastolic filling. 3. Elevated transaortic gradients are likely secondary to hyperdynamic flow. 4. Poorly visualized anatomical structures due to suboptimal image quality. QUANTITATIVE DATA SUMMARY: 2D MEASUREMENTS: Normal Ranges: Ao Root d: 3.10 cm (2.0-3.7cm) LAs: 3.60 cm (2.7-4.0cm) IVSd: 1.12 cm (0.6-1.1cm) LVPWd: 0.99 cm (0.6-1.1cm) LVIDd: 4.01 cm (3.9-5.9cm) LVIDs: 2.32 cm LV Mass Index: 81.6 g/m2 LV % FS 42.1 % LA VOLUME: Normal Ranges: LA Vol A4C: 26.0 ml (22+/-6mL/m2) LA Vol A2C: 30.3 ml LA Vol BP: 28.2 ml LA Vol Index A4C: 15.4ml/m2 LA Vol Index A2C: 18.0 ml/m2 LA Vol Index BP: 16.7 ml/m2 LA Area A4C: 12.2 cm2 LA Area A2C: 13.2 cm2 LA Major [place] A4C: 4.9 cm LA Major [place] A2C: 4.9 cm LA Volume Index: 15.3 ml/m2 LA Vol A4C: 25.9 ml LA Vol A2C: 30.1 ml AORTA MEASUREMENTS: Normal Ranges: Asc Ao, d: 3.50 cm (2.1-3.4cm) LV SYSTOLIC FUNCTION BY 2D PLANIMETRY (MOD): Normal Ranges: EF-A4C View: 65.9 % (>=55%) EF-A2C View: 73.7 % EF-Biplane: 69.8 % LV DIASTOLIC FUNCTION: Normal Ranges: MV Peak E: 1.18 m/s (0.7-1.2 m/s) MV Peak A: 1.48 m/s (0.42-0.7 m/s) E/A Ratio: 0.80 (1.0-2.2) MV lateral e' 0.09 m/s MV medial e' 0.08 m/s MITRAL VALVE: Normal Ranges: MV DT: 232 msec (150-240msec) AORTIC VALVE: Normal Ranges: AoV Vmax: 2.73 m/s (<=1.7m/s) AoV Peak P.8 mmHg (<20mmHg) AoV Mean P.0 mmHg (1.7-11.5mmHg) LVOT Max Noman: 1.82 m/s (<=1.1m/s) AoV VTI: 57.10 cm (18-25cm) LVOT VTI: 39.70 cm LVOT Diameter: 1.50 cm (1.8-2.4cm) AoV Area, VTI: 1.23 cm2 (2.5-5.5cm2) AoV Area,Vmax: 1.18 cm2 (2.5-4.5cm2) AoV Dimensionless Index: 0.70 RIGHT VENTRICLE: RV Basal 3.77 cm RV Mid 2.75 cm RV Major (more content not included)... Zafar Maier MD - 08/18/2023 [place] [address] ext-[phone], TRANSTHORACIC ECHOCARDIOGRAM REPORT Patient Name: LAURI READ Reading Physician: [id number] Zafar Parson MD Study Date: 08/18/2023 Ordering Provider: [id number] RYAN COUCH MRN/PID: [id number] Fellow: Nurse: Date of /Age: 1002/25/1950 / 73 years Journey Lineman: Sheldon Mitchell RDCS Gender: F Additional Staff: Height: 144.78 cm Admit Date: Weight: 78.02 kg Admission Status: Outpatient BSA / BMI: 1.69 m2 / 37.22 Department Location: [facility] Echo Lab kg/m2 Blood Pressure: 164 /69 mmHg Study Type: TRANSTHORACIC ECHO (TTE) COMPLETE Diagnosis/ICD: Cardiac murmur, unspecified-R01.1 CPT Codes: Echo Complete w Full Doppler-81332 Study Detail: The following Echo studies were performed: 2D, M-Mode, Doppler and color flow. PHYSICIAN INTERPRETATION: Left Ventricle: Left ventricular systolic function is hyperdynamic, with an estimated ejection fraction of 65-70%. There are no regional wall motion abnormalities. The left ventricular cavity size is normal. Spectral Doppler shows an impaired relaxation pattern of left ventricular diastolic filling. Left Atrium: The left atrium is normal in size. Right Ventricle: The right ventricle is normal in size. There is normal right ventricular global systolic function. Right Atrium: The right atrium is normal in size. Aortic Valve: The aortic valve was not well visualized. There is no evidence of aortic valve regurgitation. The peak instantaneous gradient of the aortic valve is 29.8 mmHg. The mean gradient of the aortic valve is 12.0 mmHg. Mitral Valve: The mitral valve was not well visualized. There is no evidence of mitral valve regurgitation. Tricuspid Valve: The tricuspid valve was not well visualized. No evidence of tricuspid regurgitation. Pulmonic Valve: The pulmonic valve is not well visualized. The pulmonic valve regurgitation was not well visualized. Pericardium: There is no pericardial effusion noted. There is a pericardial fat pad present. Aorta: The aortic root was not well visualized. Systemic Veins: The inferior vena cava appears to be of normal size. There is IVC inspiratory collapse greater than 50%. CONCLUSIONS: 1. Left ventricular systolic function is hyperdynamic with a 65-70% estimated ejection fraction. 2. Spectral Doppler shows an impaired relaxation pattern of left ventricular diastolic filling. 3. Elevated transaortic gradients are likely secondary to hyperdynamic flow. 4. Poorly visualized anatomical structures due to suboptimal image quality. QUANTITATIVE DATA SUMMARY: 2D MEASUREMENTS: Normal Ranges: Ao Root d: 3.10 cm (2.0-3.7cm) LAs: 3.60 cm (2.7-4.0cm) IVSd: 1.12 cm (0.6-1.1cm) LVPWd: 0.99 cm (0.6-1.1cm) LVIDd: 4.01 cm (3.9-5.9cm) LVIDs: 2.32 cm LV Mass Index: 81.6 g/m2 LV % FS 42.1 % LA VOLUME: Normal Ranges: LA Vol A4C: 26.0 ml (22+/-6mL/m2) LA Vol A2C: 30.3 ml LA Vol BP: 28.2 ml LA Vol Index A4C: 15.4ml/m2 LA Vol Index A2C: 18.0 ml/m2 LA Vol Index BP: 16.7 ml/m2 LA Area A4C: 12.2 cm2 LA Area A2C: 13.2 cm2 LA [place] A4C: 4.9 cm LA Major [place] A2C: 4.9 cm LA Volume Index: 15.3 ml/m2 LA Vol A4C: 25.9 ml LA Vol A2C: 30.1 ml AORTA MEASUREMENTS: Normal Ranges: Asc Ao, d: 3.50 cm (2.1-3.4cm) LV SYSTOLIC FUNCTION BY 2D PLANIMETRY (MOD): Normal Ranges: EF-A4C View: 65.9 % (>=55%) EF-A2C View: 73.7 % EF-Biplane: 69.8 % LV DIASTOLIC FUNCTION: Normal Ranges: MV Peak E: 1.18 m/s (0.7-1.2 m/s) MV Peak A: 1.48 m/s (0.42-0.7 m/s) E/A Ratio: 0.80 (1.0-2.2) MV lateral e' 0.09 m/s MV medial e' 0.08 m/s MITRAL VALVE: Normal Ranges: MV DT: 232 msec (150-240msec) AORTIC VALVE: Normal Ranges: AoV Vmax: 2.73 m/s (<=1.7m/s) AoV Peak P.8 mmHg (<20mmHg) AoV Mean P.0 mmHg (1.7-11.5mmHg) LVOT Max Noman: 1.82 m/s (<=1.1m/s) AoV VTI: 57.10 cm (18-25cm) LVOT VTI: 39.70 cm LVOT Diameter: 1.50 cm (1.8-2.4cm) AoV Area, VTI: 1.23 cm2 (2.5-5.5cm2) AoV Area,Vmax: 1.18 cm2 (2.5-4.5cm2) AoV Dimensionless Index: 0.70 RIGHT VENTRICLE: RV Basal 3.77 cm RV Mid 2.75 cm RV Major 7.0 cm RV s' 0.20 m/s [id number] Zafar Parson MD Electronically signed on 08/18/2023 at 5:34:25 PM Final [facility] Work Phone: Direct serum free thyroxine (FT4) measurementOrdered By: Yusuf Leyva on 08-16-2023 Free T4 [Mass/Vol] 1.08 ng/dL 0.76-1.46 [facility] Serum or plasma thyroid stim ulating hormone (TSH) measurement (units/volume)Ordered By: Yusuf Leyva on 08-16-2023 TSH Qn 2.51 uIU/mL 0.358-3.74 [facility] TSH QnOrdered By: Mansour Is ckarus on 08-16-2023 Thyroid Stimulating Hormone (TSH) 2.51 uIU/mL 0.358-3.74 [facility] US.doppler Lower extremity v ein - bilateralon 08-04-2023 [place] [address] ext-[phone], Vascular Lab Report [facility] US LOWER EXTREMITY VENOUS DUPLEX BILATERAL Patient Name: LAURI READ Reading Physician: [id number] Ling MD Study Date: 08/03/2023 Ordering Provider: [id number] RYAN COUCH MRN/PID: [id number] Fellow: Technologist: Eulalia Gracia RVT/ Date of /Age: 1002/25/1950 years Technologist 2: Gender: F Admission Status: Outpatient Location Performed: [facility] Diagnosis/ICD: Localized (leg) edema-R60.0 CPT Codes: 41947 Peripheral venous duplex scan for DVT complete CONCLUSIONS: Right Lower Venous: No evidence of acute deep vein thrombus visualized in the right lower extremity. Cannot rule out thrombus in non-visualized peroneal vein due to body habitus. Left Lower Venous: No evidence of acute deep vein thrombus visualized in the left lower extremity. Imaging & Doppler Findings: Right Compressible Thrombus Flow Distal External Iliac Yes None Spontaneous/Phasic CFV Yes None Spontaneous/Phasic PFV Yes None FV Proximal Yes None Spontaneous/Phasic FV Mid Yes None FV Distal Yes None Popliteal Yes None Spontaneous/Phasic PTV Yes None Left Compress Thrombus Flow Distal External Iliac Yes None Spontaneous/Phasic CFV Yes None Spontaneous/Phasic PFV Yes None FV Proximal Yes None Spontaneous/Phasic FV Mid Yes None FV Distal Yes None Popliteal Yes None Spontaneous/Phasic Peroneal Yes None PTV Yes None [id number] Rui Ling MD Final Rui Valderrama MD - 08/04/2023 [place] [address] ext-[phone], Vascular Lab Report [facility] US LOWER EXTREMITY VENOUS DUPLEX BILATERAL Patient Name: LAURI READ Reading Physician: [id number] Rui Ling MD Study Date: 08/03/2023 Ordering Provider: [id number] RYAN COUCH MRN/PID: [id number] Fellow: Technologist: Eulalia Gracia RVT/AB Date of /Age: 1002/25/1950 years Technologist 2: Gender: F Admission Status: Outpatient Location Performed: [facility] Diagnosis/ICD: Localized (leg) edema-R60.0 CPT Codes: 90887 Peripheral venous duplex scan for DVT complete CONCLUSIONS: Right Lower Venous: No evidence of acute deep vein thrombus visualized in the right lower extremity. Cannot rule out thrombus in non-visualized peroneal vein due to body habitus. Left Lower Venous: No evidence of acute deep vein thrombus visualized in the left lower extremity. Imaging & Doppler Findings: Right Compressible Thrombus Flow Distal External Iliac Yes None Spontaneous/Phasic CFV Yes None Spontaneous/Phasic PFV Yes None FV Proximal Yes None Spontaneous/Phasic FV Mid Yes None FV Distal Yes None Popliteal Yes None Spontaneous/Phasic PTV Yes None Left Compress Thrombus Flow Distal External Iliac Yes None Spontaneous/Phasic CFV Yes None Spontaneous/Phasic PFV Yes None FV Proximal Yes None Spontaneous/Phasic FV Mid Yes None FV Distal Yes None Popliteal Yes None Spontaneous/Phasic Peroneal Yes None PTV Yes None [id number] Rui Ling MD Final [facility] Work Phone: US.doppler Lower extremity v ein - bilateralOrdered By: Rui Boyd on 08-04-[address] [facility] Work Phone: US.doppler Lower extremity v ein - bilateralon 08-03-2023 Radiology Study observation (narrative) [facility] Work Phone: CBC W Auto Differential pane l (Bld)on 07-09-2023 Basophils (Bld) [#/Vol] 0.08 10*3/uL [facility] Basophils/100 WBC (Bld) 1.3 % 0.0 - 2.0 % [facility] Eosinophils (Bld) [#/Vol] 0.09 10*3/uL [facility] Eosinophils/100 WBC (Bld) 1.5 % 0.0 - 6.0 % [facility] Erythrocyte distribution width (RBC) [Ratio] 14.6 % High 11.5 - 14.5 % [facility] Hematocrit (Bld) [Volume fraction] 34.8 % Low 36.0 - 46.0 % [facility] Hemoglobin (Bld) [Mass/Vol] 11.2 g/dL Low 12.0 - 16.0 g/dL [facility] Immature granulocytes (Bld) [#/Vol] 0.02 10*3/uL [facility] Immature granulocytes/100 WBC (Bld) 0.3 % 0.0 - 0.9 % [facility] Comment on above: Immature Granulocyte Count (IG) includes promyelocytes, myelocytes and metamyelocytes but does not include bands. Percent differential counts (%) should be interpreted in the context of the absolute cell counts (cells/UL). Interpretation and review of laboratory results Abnormal [facility] Lymphocytes (Bld) [#/Vol] 1.98 10*3/uL [facility] Lymphocytes/100 WBC (Bld) 33.3 % 13.0 - 44.0 % [facility] MCH (RBC) [Entitic mass] 27.5 pg 26.0 - 34.[address] [facility] MCHC (RBC) [Mass/Vol] 32.2 g/dL 32.0 - 36.0 g/dL [facility] MCV (RBC) [Entitic vol] 86 fL 80 - [address] [facility] Monocytes (Bld) [#/Vol] 0.66 10*3/uL [facility] Monocytes/100 WBC (Bld) 11.1 % 2.0 - 10.0 % [facility] Neutrophils (Bld) [#/Vol] 3.12 10*3/uL [facility] Comment on above: Percent differential counts (%) should be interpreted in the context of the absolute cell counts (cells/uL). Neutrophils/100 WBC (Bld) 52.5 % 40.0 - 80.0 % [facility] Nucleated RBC/100 WBC (Bld) [Ratio] 0.0 % [facility] Platelets (Bld) [#/Vol] 336 10*3/uL [facility] RBC (Bld) [#/Vol] 4.07 10*6/uL [facility] WBC (Bld) [#/Vol] 6.0 10*3/uL [facility] CT Abdomen and Pelvis W cont rast Dori 07-09-2023 1. No hydronephrosis , hydroureter or renal/ureteral calculus identified. 2. No evidence of bowel obstruction, free intraperitoneal air or abnormal intra-abdominal fluid collection. MACRO: None Signed by: Hung Garcia 07/09/2023 5:31 PM Dictation workstation: [id number] [facility] Interpreted By: Hung Garcia, STUDY: CT ABDOMEN PELVIS W IV CONTRAST; 07/09/2023 5:05 pm INDICATION: Signs/Symptoms:right flank pain, hx of multiple myeloma. COMPARISON: None. ACCESSION NUMBER(S): [id number] ORDERING CLINICIAN: KRISTA LATHAM TECHNIQUE: Contiguous axial images were obtained at 3mm slice thickness through the abdomen and pelvis following intravenous contrast administration. Coronal and sagittal reconstructions at 3 mm slice thickness were performed. 69 cc of Omnipaque 350 were administered intravenously without immediate complication. FINDINGS: LOWER CHEST: Evaluation of the visualized lung bases demonstrate mild scarring and/or atelectasis at the lung bases bilaterally. The heart is within normal limits for size. ABDOMEN: LIVER: The liver is within normal limits for appearance, without evidence of focal masses. BILE DUCTS: No definite intra or extrahepatic biliary dilatation is identified. GALLBLADDER: The gallbladder is surgically absent ,with surgical clips seen in the gallbladder fossa. PANCREAS: The pancreas is within normal limits for appearance, without evidence of focal masses. SPLEEN: The spleen is within normal limits for size. No focal splenic mass is seen. ADRENAL GLANDS: No definite adrenal nodules or masses are seen bilaterally. KIDNEYS AND URETERS: There is no hydronephrosis, hydroureter or renal/ ureteral calculus identified bilaterally. No definite focal renal mass is seen. PELVIS: BLADDER: The urinary bladder is grossly unremarkable for CT appearance. REPRODUCTIVE ORGANS: The uterus and ovaries are grossly unremarkable for CT appearance. BOWEL: The colon and small bowel are within normal limits for course, caliber and appearance, without evidence of wall thickening or obstruction. The appendix is not clearly visualized. No CT evidence of acute diverticulitis or appendicitis is seen. VESSELS: Scattered atherosclerotic calcifications are seen throughout the infrarenal abdominal aorta and iliac arteries. The abdominal aorta is within normal limits for course, caliber and appearance, without evidence of aneurysm. PERITONEUM/RETROPERITON EUM/LYMPH NODES: There is no free intraperitoneal air or free fluid identified. No gross mesenteric or retroperitoneal lymphadenopathy is identified. BONE AND SOFT TISSUE: There is no evidence of acute fracture identified. No evidence of abdominal wall mass or hernia is identified. [facility] Hung Garcia MD - 07/09/2023 Interpreted By: Hung Garcia, STUDY: CT ABDOMEN PELVIS W IV CONTRAST; 07/09/2023 5:05 pm INDICATION: Signs/Symptoms:right flank pain, hx of multiple myeloma. COMPARISON: None. ACCESSION NUMBER(S): [id number] ORDERING CLINICIAN: KRISTA LATHAM TECHNIQUE: Contiguous axial images were obtained at 3mm slice thickness through the abdomen and pelvis following intravenous contrast administration. Coronal and sagittal reconstructions at 3 mm slice thickness were performed. 69 cc of Omnipaque 350 were administered intravenously without immediate complication. FINDINGS: LOWER CHEST: Evaluation of the visualized lung bases demonstrate mild scarring and/or atelectasis at the lung bases bilaterally. The heart is within normal limits for size. ABDOMEN: LIVER: The liver is within normal limits for appearance, without evidence of focal masses. BILE DUCTS: No definite intra or extrahepatic biliary dilatation is identified. GALLBLADDER: The gallbladder is surgically absent ,with surgical clips seen in the gallbladder fossa. PANCREAS: The pancreas is within normal limits for appearance, without evidence of focal masses. SPLEEN: The spleen is within normal limits for size. No focal splenic mass is seen. ADRENAL GLANDS: No definite adrenal nodules or masses are seen bilaterally. KIDNEYS AND URETERS: There is no hydronephrosis, hydroureter or renal/ ureteral calculus identified bilaterally. No definite focal renal mass is seen. PELVIS: BLADDER: The urinary bladder is grossly unremarkable for CT appearance. REPRODUCTIVE ORGANS: The uterus and ovaries are grossly unremarkable for CT appearance. BOWEL: The colon and small bowel are within normal limits for course, caliber and appearance, without evidence of wall thickening or obstruction. The appendix is not clearly visualized. No CT evidence of acute diverticulitis or appendicitis is seen. VESSELS: Scattered atherosclerotic calcifications are seen throughout the infrarenal abdominal aorta and iliac arteries. The abdominal aorta is within normal limits for course, caliber and appearance, without evidence of aneurysm. PERITONEUM/RETROPERITON EUM/LYMPH NODES: There is no free intraperitoneal air or free fluid identified. No gross mesenteric or retroperitoneal lymphadenopathy is identified. BONE AND SOFT TISSUE: There is no evidence of acute fracture identified. No evidence of abdominal wall mass or hernia is identified. IMPRESSION: 1. No hydronephrosis, hydroureter or renal/ureteral calculus identified. 2. No evidence of bowel obstruction, free intraperitoneal air or abnormal intra-abdominal fluid collection. MACRO: None Signed by: Hung Garcia 07/09/2023 5:31 PM Dictation workstation: [id number] [facility] Work Phone: [facility] Work Phone: Radiology Study observation (narrative) [facility] Work Phone: Comprehensive metabolic 2000 panelon 07-09-2023 Albumin BCP dye [Mass/Vol] 3.8 g/dL 3.4 - 5.0 g/dL [facility] ALP [Catalytic activity/Vol] 61 U/L 33 - 136 U/L [facility] ALT With P-5'-P [Catalytic activity/Vol] 32 U/L 7 - 45 U/L [facility] Comment on above: Patients treated wit h Sulfasalazine may generate falsely decreased results for ALT. Anion gap [Moles/Vol] 14 mmol/L 10 - 2 0 mmol/L [facility] AST With P-5'-P [Catalytic activity/Vol] 26 U/L 9 - 39 U/L [facility] Bilirubin [Mass/Vol] 0.5 mg/dL 0.0 - 1 .2 mg/dL [facility] Calcium [Mass/Vol] 9.5 mg/dL 8.6 - 10. 3 mg/dL [facility] Chloride [Moles/Vol] 103 mmol/L 98 - 10 7 mmol/L [facility] CO2 [Moles/Vol] 23 mmol/L 21 - 32 mmol/L [facility] Creatinine [Mass/Vol] 0.82 mg/dL 0.50 - 1.05 mg/dL [facility] GFR/1.73 sq M.predicted among non-blacks MDRD (S/P/Bld) [Vol rate/Area] 76 mL/min/{1.73_m2} - PINF [facility] Comment on above: Calculations of gilbert mated GFR are performed using the 2020 CKD-EPI Study Refit equation without the race variable for the IDMS-Traceable creatinine methods. https://jasn.asnjournals.org/content/early/ASN.2020 895480 Glucose [Mass/Vol] 108 mg/dL High 74 - 99 mg/dL [facility] Interpretation and review of laboratory results Abnormal [facility] Potassium [Moles/Vol] 3.2 mmol/L Low 3.5 - 5.3 mmol/L [facility] Protein [Mass/Vol] 7.1 g/dL 6.4 - 8.2 g/dL [facility] Sodium [Moles/Vol] 137 mmol/L 136 - 145 mmol/L [facility] Urea nitrogen [Mass/Vol] 24 mg/dL High 6 - 23 mg/dL [facility] ECG 12-LEADon 07-09-2023 ECG 12-LEAD Ventricular Rate 86 Atrial Rate 86 P-R Interval 160 QRS Duration 78 Q-T Interval 376 QTC Calculation(Bazett) 449 P [place] 35 R [place] -74 T [place] 19 QRS Count 15 Q Onset 213 P Onset 133 P Offset 175 T Offset 401 QTC Fred[place] 424 Diagnosis Normal sinus rhythm Left axis deviation Pulmonary disease pattern Abnormal ECG No previous ECGs available See ED provider note for full interpretation and clinical correlation Confirmed by Leena Ponce ([id number]) on 07/16/2023 7:45:37 PM Normal [facility] Natriuretic peptide B [Mass/ Vol]on 07-09-2023 Interpretation and review of laboratory results Normal [facility] Natriuretic peptide B (Bld) [Mass/Vol] 90 pg/mL 0 - 99 pg/mL [facility] <100 pg/mL - Heart failure unlikely 100-299 pg/mL - Intermediate probability of acute heart failure exacerbation. Correlate with clinical context and patient history. >=300 pg/mL - Heart Failure likely. Correlate with clinical context and patient history. BNP testing is performed using different testing methodology at [facility] than at other [facility]. Direct result comparisons should only be made within the same method. [facility] Tropinin I.cardiac panel Hig h sensitivity methodon 07-09-2023 Interpretation and review of laboratory results Abnormal [facility] Less than 99th percentile of normal range cutoff- Female and children under 18 years old <14 ng/L; Male <21 ng/L: Negative Repeat testing should be performed if clinically indicated. Female and children under 18 years old 14-50 ng/L; Male 21-50 ng/L: Consistent with possible cardiac damage and possible increased clinical risk. Serial measurements may help to assess extent of myocardial damage. >50 ng/L: Consistent with cardiac damage, increased clinical risk and myocardial infarction. Serial measurements may help assess extent of myocardial damage. NOTE: Children less than 1 year old may have higher baseline troponin levels and results should be interpreted in conjunction with the overall clinical context. NOTE: Troponin I testing is performed using a different testing methodology at [facility] than at other [facility]. Direct result comparisons should only be made within the same method. [facility] Interpretation and review of laboratory results Abnormal [facility] Less than 99th percentile of normal range cutoff- Female and children under 18 years old <14 ng/L; Male <21 ng/L: Negative Repeat testing should be performed if clinically indicated. Female and children under 18 years old 14-50 ng/L; Male 21-50 ng/L: Consistent with possible cardiac damage and possible increased clinical risk. Serial measurements may help to assess extent of myocardial damage. >50 ng/L: Consistent with cardiac damage, increased clinical risk and myocardial infarction. Serial measurements may help assess extent of myocardial damage. NOTE: Children less than 1 year old may have higher baseline troponin levels and results should be interpreted in conjunction with the overall clinical context. NOTE: Troponin I testing is performed using a different testing methodology at [facility] than at other [facility]. Direct result comparisons should only be made within the same method. [facility] Troponin I, High Sensitivity on 07-09-2023 Tropinin I.cardiac panel High sensitivity method 14 ng/L High 0 - 13 ng/L [facility] Tropinin I.cardiac panel High sensitivity method 17 ng/L High 0 - 13 ng/L [facility] Urinalysis complete W Reflex Culture panel (U)on 07-09-2023 Appearance (U) Clear Clear [facility] Bilirubin (U) [Mass/Vol] Negative NEGATIVE [facility] Color (U) Straw Straw, Yellow [facility] Glucose Auto test strip (U) [Mass/Vol] Negative NEGATIVE mg/dL [facility] Interpretation and review of laboratory results Normal [facility] Ketones (U) [Mass/Vol] Negative NEGAT FLAQUITO mg/dL [facility] Leukocyte esterase Auto test strip Ql (U) Negative NEGATIVE [facility] Nitrite Auto test strip Ql (U) Negative NEGATIVE [facility] pH (U) 6.0 [pH] 5.0, 5.5, 6.0, 6.5, 7.0, 7.5, 8.[address] [facility] Protein (U) [Mass/Vol] Negative NEGAT FLAQUITO mg/dL [facility] RBC (U) [#/Vol] Negative NEGATIVE [facility] Specific gravity (U) [Rel density] 1.020 1.005 - 1.[address] [facility] Urobilinogen (U) [Mass/Vol] mg/dL NINF - 2.0 mg/dL [facility] XR Chest Single viewon 07-09 Bibasilar airspace opacities, as above. Clinical correlation and continued follow-up until clearing is recommended. MACRO: None. Signed by: Hung Garcia 07/09/2023 4:04 PM Dictation workstation: [id number] [facility] Interpreted By: Hung Garcia, STUDY: XR CHEST 1 VIEW 07/09/2023 3:57 pm INDICATION: Signs/Symptoms:leg swelling COMPARISON: 12/23/2014 ACCESSION NUMBER(S): [id number] ORDERING CLINICIAN: KRISTA LATHAM TECHNIQUE: A single AP portable radiograph of the chest was obtained. FINDINGS: Bilateral basilar airspace opacities are seen and may represent small pleural effusions, atelectasis and/or pneumonia. No pneumothorax is identified. The cardiac silhouette is within normal limits for size. [facility] Hung Garcia MD - 07/09/2023 Interpreted By: Hung Garcia, STUDY: XR CHEST 1 VIEW 07/09/2023 3:57 pm INDICATION: Signs/Symptoms:leg swelling COMPARISON: 12/23/2014 ACCESSION NUMBER(S): [id number] ORDERING CLINICIAN: KRISTA LATHAM TECHNIQUE: A single AP portable radiograph of the chest was obtained. FINDINGS: Bilateral basilar airspace opacities are seen and may represent small pleural effusions, atelectasis and/or pneumonia. No pneumothorax is identified. The cardiac silhouette is within normal limits for size. IMPRESSION: Bibasilar airspace opacities, as above. Clinical correlation and continued follow-up until clearing is recommended. MACRO: None. Signed by: Hung Garcia 07/09/2023 4:04 PM Dictation workstation: [id number] [facility] Work Phone: Radiology Study observation (narrative) [facility] Work Phone: XR Chest Single viewOrdered By: Hung Garcia on 07-09-[address] [facility] Work Phone: Absolute lymphocyte countOrd ered By: Yusuf Leyva on 06-21-2023 Lymphocytes Auto (Unsp spec) [#/Vol] 1.05 10*3/uL 0.83-4.51 [facility] Albumin Elph [Mass/Vol]Order ed By: Yusuf Leyva on 06-21-2023 Albumin [Mass/Vol] 3.5 g/dL 2.9-4.4 [facility] Automated lymphocyte count a s percentage of total leukocytesOrdered By: Yusuf Leyva on 06-21-2023 Lymphocytes/100 WBC Auto (Unsp spec) 21.2 % 19-41 [facility] Basophil percentageOrdered B y: Yusuf Leyva on 06-21-2023 Basophils/100 WBC (Bld) 1.2 % 0-1 [facility] Eosinophils/100 WBC (Bld) 9.7 % 0-5 [facility] Hemoglobin (Bld) [Mass/Vol] 11.1 g/dL 12.0-15.0 [facility] Monocytes/100 WBC (Bld) 10.7 % 0-10 [facility] Neutrophils (Bld) [#/Vol] 2.8 10*3/uL 2.0-7.7 [facility] Neutrophils/100 WBC (Bld) 57.0 % 47-70 [facility] WBC (Bld) [#/Vol] 5.0 10*3/uL 4.4-11.0 [facility] Determination of erythrocyte mean corpuscular volume (MCV)Ordered By: Yusuf Leyva on 06-21-2023 MCV (RBC) [Entitic vol] 88.2 fL 81-99 [facility] Erythrocyte distribution wid th ratioOrdered By: [facility] on 06-21-2023 Erythrocyte distribution width (RBC) [Ratio] 14.6 % 11.6-14.6 [facility] Erythrocyte distribution wid th standard deviationOrdered By: [facility] on 06-21-2023 Erythrocyte distribution width (RBC) [Entitic vol] 47.4 fL 35.1-43.9 [facility] Hematocrit Auto (Bld) [Volum e fraction]Ordered By: Yusuf Leyva on 06-21-2023 Hematocrit (Bld) [Volume fraction] 35.2 % 37-47 [facility] Immature granulocytes/100 WB C Auto (Bld)Ordered By: Yusuf Leyva on 06-21-2023 Immature granulocytes/100 WBC (Bld) 0.200 % 0.0-0.9 [facility] Comment on above: IG% - Immature Granu locytes (promyelocytes, myelocytes and metamyelocytes) > 1% indicates that a LEFT SHIFT is Present. Immunoglobulin M measurement Ordered By: Yusuf Leyva on 06-21-2023 IgM (U) [Mass/Vol] 54 mg/dL 26-217 [facility] Interpretation of serum or p lasma protein pattern by immunofixation (narrative resultOrdered By: Yusuf Leyva on 06-21-2023 Protein Fractions Immunofixation Ulisses [Interp] 0.3 g/dL Not Observed [facility] Laboratory - Hematology and Cell countsOrdered By: Yusuf Leyva on 06-21-2023 MCH (RBC) [Entitic mass] 27.8 pg 27.0-32.0 [facility] MCHC (RBC) [Mass/Vol] 31.5 g/dL 32-36 [facility] Nucleated RBC/100 WBC (Bld) [Ratio] 0 % 0-5 [facility] Platelets (Bld) [#/Vol] 177 10*3/uL 150-450 [facility] No Panel InformationOrdered By: Yusuf Leyva on 06-21-2023 Addendum Document Comment . [facility] Comment on above: Protein electrophore sis scan will follow via computer,mail, or massage operator delivery.Performed at: [employer] Director: Chris Amos PhD, Phone: [phone] Free Lambda Light Chains, Quant 18.6 mg/L 5.7-26.3 [facility] Platelet mean volume Alfonso-Ec ker (Bld) [Entitic vol]Ordered By: Yusuf Leyva on 06-21-2023 Platelet mean volume (Bld) [Entitic vol] 10.6 fL 6.2-12.0 [facility] RBC Auto (Bld) [#/Vol]Ordere d By: Yusuf Leyva on 06-21-2023 RBC (Bld) [#/Vol] 3.99 10*6/uL 4.2-5.4 [facility] Serum hmyms-6-bbonjfhk measu rement by electrophoresisOrdered By: Yusuf Leyva on 06-21-2023 Alpha 1 globulin Elph [Mass/Vol] 0.2 g/dL 0.0-0.4 [facility] Alpha 1 globulin Elph [Mass/Vol] 0.8 g/dL 0.4-1.0 [facility] Serum globulin measurement ( mass/volume)Ordered By: Yusuf Leyva on 06-21-2023 Globulin (S) [Mass/Vol] 2.7 g/dL 2.2-3.9 [facility] Serum immunoglobulin kappa l ight chains/immunoglobulin lambda light chains mass ratioOrdered By: Yusuf Leyva on 06-21-2023 Immunoglobulin light chains.kappa/Immunoglob ulin light chains.lambda (S) [Mass ratio] 1.63 0.26-1.65 [facility] Comment on above: Performed at: [address] [id number] Director: Chris Amos PhD, Phone: [phone] Serum or plasma IgA measurem ent (mass/volume)Ordered By: Yusuf Leyva on 06-21-2023 IgA [Mass/Vol] 118 mg/dL 64-422 [facility] Serum or plasma IgG measurem ent (mass/volume)Ordered By: Yusuf Leyva on 06-21-2023 IgG [Mass/Vol] 940 mg/dL [phone] [facility] Serum or plasma beta globuli n measurement by electrophoresis (mass/volume)[facility] Beta globulin Elph [Mass/Vol] 0.9 g/dL 0.7-1.3 [facility] Serum or plasma gamma globul in measurement by electrophoresis (mass/volume)Ordered By: [facility] 06-21-2023 Gamma globulin Elph [Mass/Vol] 0.8 g/dL 0.4-1.8 [facility] Serum or plasma immunoelectr ophoresis interpretation (nominal result)Ordered By: Yusuf Leyva on 06-21-2023 Interpretation IEP [Interp] Comment . 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 PLEASE NOTE: Samples from patients receiving DARZALEX(R)(daratumumab) or SARCLISA(R)(isatuximab-irfc) treatmentcan appear as an IgG kappa and mask a complete response(CR). If this patient is receiving these therapies, thisIFE assay interference can be removed by ordering testnumber [id number], Daratumumab-Specific,Serum or [id number], Isatuximab-Specific,Serum and submitting a new sample for testing or bycalling the lab to add this test to the current sample. Serum or plasma immunoglobul in kappa light chains measurement (mass/volume)Ordered By: Yusuf Leyva on 06-21-2023 Immunoglobulin light chains.kappa [Mass/Vol] 30.4 mg/L 3.3-19.4 [facility] Thin prep Papanicolaou smear with manual screeningOrdered By: Yusuf Leyva on 06-21-2023 Thin prep Papanicolaou smear with manual screening 1.3 0.7-1.7 [facility] Total protein bloodOrdered B y: [facility] on 06-21-2023 Protein [Mass/Vol] 6.2 g/dL 6.0-8.5 [facility] Absolute lymphocyte countOrd ered By: [facility] on 06-07-2023 Lymphocytes Auto (Unsp spec) [#/Vol] 0.90 10*3/uL 0.83-4.51 [facility] [facility] Automated lymphocyte count a s percentage of total leukocytesOrdered By: [facility] on 06-07-2023 Lymphocytes/100 WBC Auto (Unsp spec) 24.0 % 19-41 [facility] Basophil percentageOrdered B y: [facility] on 06-07-2023 Basophil percentage 3.1 mg/dL 2.5-4.9 [facility] Basophils/100 WBC (Bld) 2.9 % 0-1 [facility] Bilirubin [Mass/Vol] 0.40 mg/dL 0.20-1.00 [facility] Comment on above: For patients on eltr ombopag therapy, use of Dimension [place] TBIL is not recommended. Chloride [Moles/Vol] 107 mmol/L 98-107 [facility] Eosinophils/100 WBC (Bld) 1.1 % 0-5 [facility] Glucose [Mass/Vol] 122 mg/dL 74-106 [facility] Comment on above: Fasting Glucose resu lt from 100 to 125 mg/dL suggests IMPAIRED HOMEOSTASIS per A.D.A. criteria. Hemoglobin (Bld) [Mass/Vol] 12.4 g/dL 12.0-15.0 [facility] Monocytes/100 WBC (Bld) 5.1 % 0-10 [facility] Neutrophils (Bld) [#/Vol] 2.5 10*3/uL 2.0-7.7 [facility] Neutrophils/100 WBC (Bld) 66.4 % 47-70 [facility] Potassium [Moles/Vol] 4.3 mmol/L 3.5-5.1 [facility] Protein [Mass/Vol] 7.8 g/dL 6.4-8.2 [facility] Sodium [Moles/Vol] 139 mmol/L 136-145 [facility] WBC (Bld) [#/Vol] 3.8 10*3/uL 4.4-11.0 [facility] Determination of erythrocyte mean corpuscular volume (MCV)Ordered By: Yusuf Leyva on 06-07-2023 MCV (RBC) [Entitic vol] 88.4 fL 81-99 [facility] Erythrocyte distribution wid th ratioOrdered By: Yusuf Leyva on 06-07-2023 Erythrocyte distribution width (RBC) [Ratio] 14.4 % 11.6-14.6 [facility] Erythrocyte distribution wid th standard deviationOrdered By: Yusuf Leyva on 06-07-2023 Erythrocyte distribution width (RBC) [Entitic vol] 46.3 fL 35.1-43.9 [facility] Hematocrit Auto (Bld) [Volum e fraction]Ordered By: Yusuf Leyva on 06-07-2023 Hematocrit (Bld) [Volume fraction] 39.5 % 37-47 [facility] Immature granulocytes/100 WB C Auto (Bld)Ordered By: Yusuf Leyva on 06-07-2023 Immature granulocytes/100 WBC (Bld) 0.500 % 0.0-0.9 [facility] Comment on above: IG% - Immature Granu locytes (promyelocytes, myelocytes and metamyelocytes) > 1% indicates that a LEFT SHIFT is Present. Laboratory - Chemistry and C hemistry - challengeOrdered By: Yusuf Leyva on 06-07-2023 Albumin/Globulin [Mass ratio] 0.8 {ratio} 0.9-2.4 [facility] ALP [Catalytic activity/Vol] 72 U/L 45-117 [facility] ALT [Catalytic activity/Vol] 47 U/L 13-56 [facility] CO2 [Moles/Vol] 25.0 mmol/L 21.0-32.0 [facility] Globulin (S) [Mass/Vol] 4.3 g/dL 2.2-4.2 [facility] Magnesium [Mass/Vol] 2.1 mg/dL 1.6-2.6 [facility] Urea nitrogen/Creatinine [Mass ratio] 20.0 mg/mg 10-20 [facility] Laboratory - Hematology and Cell countsOrdered By: Yusuf Leyva on 06-07-2023 MCH (RBC) [Entitic mass] 27.7 pg 27.0-32.0 [facility] MCHC (RBC) [Mass/Vol] 31.4 g/dL 32-36 [facility] Nucleated RBC/100 WBC (Bld) [Ratio] 0 % 0-5 [facility] Platelets (Bld) [#/Vol] 376 10*3/uL 150-450 [facility] No Panel InformationOrdered By: Yusuf Leyva on 06-07-2023 Estimated Creatinine Clearance Calc 55.14 ml/min [facility] Estimated GFR (MDRD) Amer 84 mL/min >60 [facility] Comment on above: GFR Calc Estimated GFR (MDRD) Non-Af Amer 69 mL/min >60 [facility] Comment on above: Non- GFR Calc Platelet mean volume Alfonso-Ec ker (Bld) [Entitic vol]Ordered By: Yusuf Leyva on 06-07-2023 Platelet mean volume (Bld) [Entitic vol] 9.7 fL 6.2-12.0 [facility] RBC Auto (Bld) [#/Vol]Ordere d By: Yusuf Leyva on 06-07-2023 RBC (Bld) [#/Vol] 4.47 10*6/uL 4.2-5.4 [facility] Serum or plasma calcium marv urement (mass/volume)Ordered By: Yusuf Leyva on 06-07-2023 Calcium [Mass/Vol] 9.7 mg/dL 8.5-10.1 [facility] Serum or plasma creatinine m easurement (mass/volume)Ordered By: Yusuf Leyva on 06-07-2023 Creatinine [Mass/Vol] 0.85 mg/dL 0.55-1.02 [facility] Comment on above: The validity of the calculated GFR & GFRAA in patients over 70 years has not been determined. Clinical correlation is essential. Serum or plasma urea nitroge n measurement (mass/volume)Ordered By: Yusuf Leyva on 06-07-2023 Urea nitrogen [Mass/Vol] 17 mg/dL 7-18 [facility] Thin prep Papanicolaou smear with manual screeningOrdered By: Yusuf Leyva on 06-07-2023 Thin prep Papanicolaou smear with manual screening 3.5 g/dL 3.2-5.0 [facility] Thin prep Papanicolaou smear with manual screening 27 U/L 15-37 [facility] Thin prep Papanicolaou smear with manual screening 7 5-15 [facility] Albumin Elph [Mass/Vol]Order ed By: Yusuf Leyva on 05-24-2023 Albumin [Mass/Vol] 3.6 g/dL 2.9-4.4 [facility] Interpretation of serum or p lasma protein pattern by immunofixation (narrative resultOrdered By: Yusuf Leyva on 05-24-2023 Protein Fractions Immunofixation Ulisses [Interp] 0.5 g/dL Not Observed [facility] No Panel InformationOrdered By: Yusuf Leyva on 05-24-2023 Addendum Document Comment . [facility] Comment on above: Protein electrophore sis scan will follow via computer,mail, or massage operator delivery.Performed at: [facility] [id number] Director: Chris Amos PhD, Phone: [phone] Serum gnsky-5-blfavljt measu rement by electrophoresisOrdered By: Yusuf Leyva on 05-24-2023 Alpha 1 globulin Elph [Mass/Vol] 0.3 g/dL 0.0-0.4 [facility] Alpha 1 globulin Elph [Mass/Vol] 0.9 g/dL 0.4-1.0 [facility] Serum or plasma IgA measurem ent (mass/volume)Ordered By: Yusuf Leyva on 05-24-2023 IgA [Mass/Vol] 122 mg/dL 64-422 [facility] Serum or plasma IgG measurem ent (mass/volume)Ordered By: Yusuf Leyva on 05-24-2023 IgG [Mass/Vol] 1023 mg/dL [phone] [facility] Serum or plasma IgM measurem ent (mass/volume)Ordered By: Yusuf Leyva on 05-24-2023 IgM [Mass/Vol] 59 mg/dL 26-217 [facility] Serum or plasma beta globuli n measurement by electrophoresis (mass/volume)Ordered By: Yusuf Leyva on 05-24-2023 Beta globulin Elph [Mass/Vol] 1.0 g/dL 0.7-1.3 [facility] Serum or plasma gamma globul in measurement by electrophoresis (mass/volume)Ordered By: Yusuf Leyva on 05-24-2023 Gamma globulin Elph [Mass/Vol] 1.0 g/dL 0.4-1.8 [facility] Serum or plasma immunoelectr ophoresis interpretation (nominal result)Ordered By: Yusuf Leyva on 05-24-2023 Interpretation IEP [Interp] Comment . 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 PLEASE NOTE: Samples from patients receiving DARZALEX(R)(daratumumab) or SARCLISA(R)(isatuximab-irfc) treatmentcan appear as an IgG kappa and mask a complete response(CR). If this patient is receiving these therapies, thisIFE assay interference can be removed by ordering testnumber [id number], Daratumumab-Specific,Serum or [id number], Isatuximab-Specific,Serum and submitting a new sample for testing or bycalling the lab to add this test to the current sample. Thin prep Papanicolaou smear with manual screeningOrdered By: Yusuf Leyva on 05-24-2023 Thin prep Papanicolaou smear with manual screening 1.1 0.7-1.7 [facility] Total protein bloodOrdered B y: Yusuf Leyva on 05-24-2023 Protein [Mass/Vol] 6.9 g/dL 6.0-8.5 [facility] HBV core Ab Ql (S)Ordered By : Yusuf Leyva on 03-29-2023 Hepatitis B Core Total Antibody Negative Negative [facility] HBV surface Ag IA QlOrdered By: Yusuf Leyva on 03-29-2023 Hepatitis B Surface Antigen Negative Negative [facility] No Panel InformationOrdered By: Yusuf Leyva on 03-29-2023 Hepatitis B Surface Antibody Non-Reactive . [facility] Comment on above: Non Reactive: Incons istent with immunity, less than 10 mIU/mL Reactive: Consistent with immunity, greater than 9.9 mIU/mL Hepatitis C Antibody Non-Reactive Non Reactive [facility] Hepatitis C Antibody Comment Comment . [facility] Comment on above: Not infected with HC V unless early or acute infection issuspected (which may be delayed in an immunocompromisedindividual), or other evidence exists to indicate HCVinfection.Performed at: [facility] [id number] Director: Chris Amos PhD, Phone: [phone] Serum hepatitis B virus core antibody detectionOrdered By: Yusuf Leyva on 03-29-2023 HBV core Ab Ql (S) Negative Negative [facility] Serum or plasma hepatitis B virus surface antigen detection by immunoassayOrdered By: Yusuf Leyva on 03-29-2023 HBV surface Ag IA Ql Negative Negative [facility] Blood manual differential co mment interpretation (narrative result)Ordered By: Yusuf Leyva on 12-21-2022 Manual differential comment Ulisses (Bld) [Interp] SCANNED [facility] Manual differential comment Ulisses (Bld) [Interp]Ordered By: Yusuf Leyva on 12-21-2022 Differential Comment SCANNED [facility] Serum or plasma uric acid me asurement (mass/volume)Ordered By: Yusuf Leyva on 10-11-2022 Urate [Mass/Vol] 5.9 mg/dL 2.6-6.0 [facility] Comment on above: The drugs N-Acetylcy steine and Metamizole may falsely depress this assay. Lipid Panelon 08-25-2022 Cholesterol [Mass/Vol] 144 mg/dL 0 - 199 [facility] [place] [facility] [address] DO Work Phone: Comment on above: . AGE DESIRABLE BORD SANTI HIGH HIGH 0-19 Y 0 - 169 170 - 199 >/= 200 20-24 Y 0 - 189 190 - 224 >/= 225 >24 Y 0 - 199 200 - 239 >/= 240 All ranges are based on fasting samples. Specific therapeutic targets will vary based on patient-specific cardiac risk.. Pediatric guidelines reference:Pediatrics 2011, 128(S5). Adult guidelines reference: NCEP ATPIII Guidelines, LINDSEY 2001, 258:2486-97. Venipuncture immediately after or during the administration of Metamizole may lead to falsely low results. Testing should be performed immediately prior to Metamizole dosing. Cholesterol in HDL [Mass/Vol] 47.0 mg/dL [place] [address] DO Work Phone: Comment on above: . AGE VERY LOW LOW N ORMAL HIGH 0-19 Y < 35 < 40 40-45 ---- 20-24 Y ---- < 40 >45 ---- >24 Y ---- < 40 40-60 >60. Cholesterol in LDL [Mass/Vol] 78 mg/dL 0 - 99 [place] [address] DO Work Phone: [phone] Comment on above: . NEAR BORD AGE EMILIA RABLE OPTIMAL HIGH HIGH VERY HIGH 0-19 Y 0 - 109 --- 110-129 >/= 130 ---- 20-24 Y 0 - 119 --- 120-159 >/= 160 ---- >24 Y 0 - 99 100-129 130-159 160-189 >/=190. Cholesterol.total/Kait sterol in HDL [Mass ratio] 3.1 {ratio} [place] [address] DO Work Phone: Comment on above: REF VALUESDESIRABLE < 3.4HIGH RISK > 5.0 Triglyceride [Mass/Vol] 93 mg/dL 0 - 149 M [place] [address] DO Work Phone: Comment on above: . AGE DESIRABLE BORD SANTI HIGH HIGH VERY HIGH 0 D-90 D 19 - 174 ---- ---- ----91 D- 9 Y 0 - 74 75 - 99 >/= 100 ---- 10-19 Y 0 - 89 90 - 129 >/= 130 ---- 20-24 Y 0 - 114 115 - 149 >/= 150 ---- >24 Y 0 - 149 150 - 199 200- 499 >/= 500. Venipuncture immediately after or during the administration of Metamizole may lead to falsely low results. Testing should be performed immediately prior to Metamizole dosing. Lipid Panel 19 mg/dL 0 - 40 [facility] 3 DO Work Phone: Office Visiton 07-09-2022 Follow-up visit Diagnoses/Problems Acute bronchitis (466.0) (J20.9) Orders Acute bronchitis Start: Albuterol Sulfate HFA 108 (90 Base) MCG/ACT Inhalation Aerosol Solution; INHALE 2 PUFFS EVERY 4 HOURS NEEDED FOR COUGH AND WHEEZE Start: Amoxicillin 875 MG Oral Tablet; TAKE 1 TABLET EVERY 12 HOURS DAILY Start: Benzonatate 200 MG Oral Capsule; TAKE 1 CAPSULE 3 TIMES DAILY NEEDED Patient Discussion/Summary Turn as planned Chief Complaint Pt presents with c/o sinus congestion, sore throat, cough x5 days. This note was generated by using Show[employer] software. It may contain errors in wording, punctuate, or spelling. She is here today with approximately a 4-day history of congestion with cough and some wheezing. We did conduct a review of systems and based on today's evaluation I believe she is suffering from acute bronchitis. She is also had a propensity to develop sinusitis and with that I am giving her amoxicillin which usually works well. For her cough and giving her an albuterol inhaler and Tessalon for cough as well. We talked about prescribing prednisone but she is reluctant to take it right now. She knows she can call on Tuesday and if her wheezing and other symptoms do not get better we would recommend she call and we get that going. She is also been taking [id number] Coricidin HBP with Mucinex and she will give us an update. Her blood pressure was elevated today but I am talking it up to her illness and we do have a follow-up visit in the future to go over everything. I asked that she check her blood pressures at home and give us an update or bring her machine with her to her next appointment. Review of SystemsDenies fevers but has fatigue. Nasal congestion Denies shortness of breath, coughing, wheezing Denies chest pain, palpitations, leg edema Denies nausea, vomiting, diarrhea C/O cronic significant joint pain . Denies feelings of significant anxiety or depression Active Problems BMI 31.0-31.9,adult (V85.31) (Z68.31) Carotid stenosis (433.10) (I65.29) Carpal tunnel syndrome (354.0) (G56.00) Fatigue (780.79) (R53.83) GERD (gastroesophageal reflux disease) (530.81) (K21.9) HTN (hypertension), benign (401.1) (I10) Hypertriglyceridemia (272.1) (E78.1) Hyperuricemia (790.6) (E79.0) Left shoulder pain (719.41) (M25.512) Low back pain, episodic (724.2) (M54.50) Medicare annual wellness visit, subsequent (V70.0) (Z00.00) Menopause (627.2) (Z78.0) Multiple myeloma (203.00) (C90.00) Nocturnal hypoxemia (327.24) (G47.34) Obesity (BMI 30.0-34.9) (278.00) (E66.9) 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) PND (post-nasal drip) (784.91) (R09.82) Prediabetes (790.29) (R73.03) Rib pain on right side (786.50) (R07.81) Screening for colorectal cancer (V76.51,V76.41) (Z12.11,Z12.12) COLOGUARD: NEGATIVE Shoulder pain, right (719.41) (M25.511) Skin lesion of chest wall (709.9) (L98.9) Past Medical History History of mammography, diagnostic (V15.89) (Z92.89) [facility] Surgical History History of Breast biopsy History of Cholecystectomy History of Dilation and curettage History of Tubal ligation Social History Daily caffeine consumption, 2-3 servings a day Does not use illicit drugs (V49.89) (Z78.9) Never smoked tobacco (V49.89) (Z78.9) No advance directives (V49.89) (Z78.9) No alcohol use Allergies No Known Drug Allergies Recorded By: Stefanie Gotti; 05/10/2019 4:38:43 PM Current Meds Medication NameInstruction Acyclovir 400 MG Oral TabletTAKE 1 TABLET BY MOUTH TWICE DAILY FOR 30 DAYS WITH THE START OF CHEMOTHERAPY Allopurinol 100 MG Oral TabletTAKE 1 TABLET DAILY. Dexamethasone 4 MG Oral TabletTAKE 5 TABLETS BY MOUTH ONCE A WEEK. TAKE AFTER BREAKFAST WEEKLY ON DAYS SCHEDULED FOR INJECTABLE CHEMOTHERAPY Famotidine 20 MG Oral TabletTAKE 1 TABLET BY MOUTH ONCE DAILY Furosemide 40 MG Oral TabletTake 1 tablet daily Gemfibrozil 600 MG Oral TabletTake 1 tablet daily Ketoconazole 2 % External Cream Ketoconazole 2 % External Shampoo NIFEdipine ER 30 MG Oral Tablet Extended Release 24 HourTAKE 1 TABLET DAILY. Vitals Vital Signs Recorded: [id number] 09:16AM Heart Rate83 [id number], LUE Mnfbmaixd43, LUE Height4 ft 9 in Height or Weight NOT DonePatient Reason Not Done Falls Screening (Age 18+)a) No falls within the last year O2 [id number] Physical Exam Patient is alert and oriented 4. In no acute distress EACs are patent, TMs are normal, nares reveals small amount of mucus, posterior pharynx reveals erythema, neck exam reveals shotty lymphadenopathy. Respirations are easy and regular. CTA Heart tones are regular rate and rhythm. Abdomen is soft Extremities reveal no edema Neurologically grossly intact Signatures Electronically signed by : Thelma Frazier DO; Jul 09 2022 9:34AM EST (Author) Normal EDITD Absolute lymphocyte countOrd ered By: Dr. Leyva on 06-08-2022 Lymphocytes Auto (Unsp spec) [#/Vol] 1.06 10*3/uL 0.83-4.51 [facility] Albumin Elph [Mass/Vol]Order ed By: Dr. Leyva on 06-08-2022 Albumin [Mass/Vol] 3.7 g/dL 2.9-4.4 [facility] Basophil percentageOrdered B y: Dr. Leyva on 06-08-2022 Basophils/100 WBC (Bld) 1.1 % 0-1 [facility] Eosinophils/100 WBC (Bld) 6.5 % 0-5 [facility] Neutrophils (Bld) [#/Vol] 3.8 10*3/uL 2.0-7.7 [facility] Neutrophils/100 WBC (Bld) 66.6 % 47-70 [facility] WBC (Bld) [#/Vol] 5.7 10*3/uL 4.4-11.0 [facility] Blood erythrocytes count (nu mber/volume)Ordered By: Dr. Leyva on 06-08-2022 RBC (Bld) [#/Vol] 4.21 10*6/uL 4.2-5.4 [facility] Blood hemoglobin measurement (mass/volume)Ordered By: Dr. Leyva on 06-08-2022 Hemoglobin (Bld) [Mass/Vol] 12.3 g/dL 12.0-15.0 [facility] Blood lymphocytes/100 leukoc ytesOrdered By: Dr. Leyva on 06-08-2022 Lymphocytes/100 WBC (Bld) 18.7 % 19-41 [facility] Blood monocytes/100 leukocyt esOrdered By: Dr. Leyva on 06-08-2022 Monocytes/100 WBC (Bld) 6.7 % 0-10 [facility] Blood platelet mean volumeOr dered By: Dr. Leyva on 06-08-2022 Platelet mean volume (Bld) [Entitic vol] 9.2 fL 6.2-12.0 [facility] Determination of erythrocyte mean corpuscular volume (MCV)Ordered By: Dr. Leyva on 06-08-2022 MCV (RBC) [Entitic vol] 89.8 fL 81-99 [facility] Hematocrit Auto (Bld) [Volum e fraction]Ordered By: Dr. Leyva on 06-08-2022 Hematocrit (Bld) [Volume fraction] 37.8 % 37-47 [facility] Interpretation of serum or p lasma protein pattern by immunofixation (narrative resultOrdered By: Dr. Leyva on 06-08-2022 Protein Fractions Immunofixation Ulisses [Interp] 0.1 g/dL Not Observed [facility] Laboratory - Hematology and Cell countsOrdered By: Dr. Leyva on 06-08-2022 Erythrocyte distribution width (RBC) [Entitic vol] 45.7 fL 35.1-43.9 [facility] Erythrocyte distribution width (RBC) [Ratio] 14.0 % 11.6-14.6 [facility] Immature granulocytes/100 WBC (Bld) 0.400 % 0.0-0.9 [facility] Comment on above: IG% - Immature Granu locytes (promyelocytes, myelocytes and metamyelocytes) > 1% indicates that a LEFT SHIFT is Present. MCH (RBC) [Entitic mass] 29.2 pg 27.0-32.0 [facility] Nucleated RBC/100 WBC (Bld) [Ratio] 0 % 0-5 [facility] MCHC Auto (RBC) [Mass/Vol]Or dered By: Dr. Leyva on 06-08-2022 MCHC (RBC) [Mass/Vol] 32.5 g/dL 32-36 [facility] No Panel InformationOrdered By: Dr. Leyva on 06-08-2022 Addendum Document Comment . [facility] Comment on above: Protein electrophore sis scan will follow via computer,mail, or massage operator delivery.Performed at: [address] [id number] Director: Chris Amos PhD, Phone: [phone] Platelets bldOrdered By: Dr. Leyva on 06-08-2022 Platelets (Bld) [#/Vol] 261 10*3/uL 150-450 [facility] Serum [id number]-0-wpfyigpe measu rement by electrophoresisOrdered By: Dr. Leyva on 06-08-2022 Alpha 1 globulin Elph [Mass/Vol] 0.2 g/dL 0.0-0.4 [facility] Alpha 1 globulin Elph [Mass/Vol] 0.9 g/dL 0.4-1.0 [facility] Serum globulin measurement ( mass/volume)Ordered By: Dr. Leyva on 06-08-2022 Globulin (S) [Mass/Vol] 2.7 g/dL 2.2-3.9 [facility] Serum or plasma IgA measurem ent (mass/volume)Ordered By: Dr. Leyva on 06-08-2022 IgA [Mass/Vol] 100 mg/dL 64-422 [facility] Serum or plasma IgG measurem ent (mass/volume)Ordered By: Dr. Leyva on 06-08-2022 IgG [Mass/Vol] 629 mg/dL [phone] [facility] Serum or plasma IgM measurem ent (mass/volume)Ordered By: Dr. Leyva on 06-08-2022 IgM [Mass/Vol] 20 mg/dL 26-217 [facility] Comment on above: Result confirmed on concentration. Serum or plasma beta globuli n measurement by electrophoresis (mass/volume)Ordered By: Dr. Leyva on 06-08-2022 Beta globulin Elph [Mass/Vol] 0.9 g/dL 0.7-1.3 [facility] Serum or plasma gamma globul in measurement by electrophoresis (mass/volume)Ordered By: Dr. Leyva on 06-08-2022 Gamma globulin Elph [Mass/Vol] 0.7 g/dL 0.4-1.8 [facility] Serum or plasma immunoelectr ophoresis interpretation (nominal result)Ordered By: Dr. Leyva on 06-08-2022 Interpretation IEP [Interp] Comment . [facility] Comment on above: Immunofixation shows IgG monoclonal protein with kappalight chain specificity.Please note that samples from patients receivingDARZALEX(R) (daratumumab) or SARCLISA(R)(isatuximab-[facility])treatment can appear as an IgG kappa and mask a completeresponse (CR). If this patient is receiving thesetherapies, this GAYLE assay interference can be removed byordering test number [id number], Daratumumab-Specific, Serum or [id number],Isatuximab-Specific, Serum and submitting a new samplefor testing or by calling the lab to add this test to thecurrent sample. Thin prep Papanicolaou smear with manual screeningOrdered By: Dr. Leyva on 06-08-2022 Thin prep Papanicolaou smear with manual screening 1.4 0.7-1.7 [facility] Total protein bloodOrdered B y: Dr. Leyva on 06-08-2022 Protein [Mass/Vol] 6.4 g/dL 6.0-8.5 [facility] Basophil percentageOrdered B y: Dr. Leyva on 05-25-2022 Bilirubin [Mass/Vol] 0.60 mg/dL 0.20-1.00 [facility] Comment on above: For patients on eltr ombopag therapy, use of Dimension [place] TBIL is not recommended. Chloride [Moles/Vol] 104 mmol/L 98-107 [facility] Glucose [Mass/Vol] 224 mg/dL 74-106 [facility] Comment on above: Glucose result great er than or equal to 200 mg/dLsuggests DIABETES MELLITUS per A.D.A. criteria. Potassium [Moles/Vol] 4.0 mmol/L 3.5-5.1 [facility] Protein [Mass/Vol] 7.8 g/dL 6.4-8.2 [facility] Sodium [Moles/Vol] 140 mmol/L 136-145 [facility] Laboratory - Chemistry and C hemistry - challengeOrdered By: Dr. Leyva on 05-25-2022 ALP [Catalytic activity/Vol] 99 U/L 45-117 [facility] ALT [Catalytic activity/Vol] 33 U/L 13-56 [facility] CO2 [Moles/Vol] 28.0 mmol/L 21.0-32.0 [facility] Urea nitrogen/Creatinine [Mass ratio] 22.3 mg/mg 10-20 [facility] No Panel InformationOrdered By: Dr. Leyva on 05-25-2022 Estimated Creatinine Clearance Calc 55.66 ml/min [facility] Estimated GFR (MDRD) Amer 68 mL/min >60 [facility] Comment on above: GFR Calc Estimated GFR (MDRD) Non-Af Amer 56 mL/min >60 [facility] Comment on above: Non- GFR Calc Serum or plasma albumin marv urement (mass/volume)Ordered By: Dr. Leyva on 05-25-2022 Albumin [Mass/Vol] 4.1 g/dL 3.2-5.0 [facility] Serum or plasma albumin/glob ulin mass ratioOrdered By: Dr. Leyva on 05-25-2022 Albumin/Globulin [Mass ratio] 1.1 {ratio} 0.9-2.4 [facility] Serum or plasma calcium marv urement (mass/volume)Ordered By: Dr. Leyva on 05-25-2022 Calcium [Mass/Vol] 9.9 mg/dL 8.5-10.1 [facility] Serum or plasma creatinine m easurement (mass/volume)Ordered By: Dr. Leyva on 05-25-2022 Creatinine [Mass/Vol] 1.03 mg/dL 0.55-1.02 [facility] Comment on above: The validity of the calculated GFR & GFRAA in patients over 70 years has not been determined. Clinical correlation is essential. Serum or plasma urea nitroge n measurement (mass/volume)Ordered By: Dr. Leyva on 05-25-2022 Urea nitrogen [Mass/Vol] 23 mg/dL 7-18 [facility] Thin prep Papanicolaou smear with manual screeningOrdered By: Dr. Leyva on 05-25-2022 Thin prep Papanicolaou smear with manual screening 15 U/L 15-37 [facility] Thin prep Papanicolaou smear with manual screening 8 5-15 [facility] No Panel InformationOrdered By: Dr. Leyva on 03-16-2022 Free Lambda Light Chains, Quant 15.4 mg/L 5.7-26.3 [facility] Serum immunoglobulin kappa l ight chains/immunoglobulin lambda light chains mass ratioOrdered By: Dr. Leyva on 03-16-2022 Immunoglobulin light chains.kappa/Immunoglob ulin light chains.lambda (S) [Mass ratio] 1.44 0.26-1.65 [facility] Comment on above: Performed at: [address] [id number] Director: Chris Amos PhD, Phone: [phone] Serum or plasma immunoglobul in kappa light chains measurement (mass/volume)Ordered By: Dr. 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 We will refrain from ordering other lab test because she has it done frequently through her oncologist Chief Complaint Pt is here today for a 6 month check up, Review labs. This note was generated by using ShowKit software. It may contain errors in wording, punctuate, or spelling. She is here today for her 6-month [...] if it would be covered for her main therapy. She is to call if her neck [...] prior to her next visit. I also strongly recommend she get the season's flu vaccine and overall she I think she is doing well everything is going on. Review of SystemsChronic mild fatigue. Denies shortness of breath, coughing, wheezing Denies chest pain, palpitations, leg edema Denies nausea, vomiting, diarrhea, heartburn, abdominal pain, or black or bloody stools Chronic mild significant joint pain and back pain Denies feelings of significant anxiety or depression Active Problems BMI 31.0-31.9,adult (V85.31) (Z68.31) Carotid stenosis (433.10) (I65.29) Carpal tunnel syndrome (354.0) (G56.00) Fatigue (780.79) (R53.83) GERD (gastroesophageal reflux disease) (530.81) (K21.9) HTN (hypertension), benign (401.1) (I10) Hypertriglyceridemia (272.1) (E78.1) Hyperuricemia (790.6) (E79.0) Left shoulder pain (719.41) (M25.512) Low back pain, episodic (724.2) (M54.50) Medicare annual wellness visit, subsequent (V70.0) (Z00.00) Menopause (627.2) (Z78.0) Multiple myeloma (203.00) (C90.00) Nocturnal hypoxemia (327.24) (G47.34) Obesity (BMI 30.0-34.9) (278.00) (E66.9) PND (post-nasal drip) (784.91) (R09.82) Prediabetes (790.29) (R73.03) Rib pain on right side (786.50) (R07.81) Screening for colorectal cancer (V76.51,V76.41) (Z12.11,Z12.12) COLOGUARD: NEGATIVE Shoulder pain, right (719.41) (M25.511) Skin lesion of chest wall (709.9) (L98.9) Past Medical History History of mammography, diagnostic (V15.89) (Z92.89) [facility] Surgical History History of Breast biopsy History of Cholecystectomy History of Dilation and curettage History of Tubal ligation Social History Daily caffeine consumption, 2-3 servings a day Does not use illicit drugs (V49.89) (Z78.9) Never smoked tobacco (V49.89) (Z78.9) No advance directives (V49.89) (Z78.9) No alcohol use Allergies No Known Drug Allergies Recorded By: Stefanie Gotti; 05/10/2019 4:38:43 PM Current Meds Medication NameInstruction Acyclovir 400 MG Oral TabletTAKE 1 TABLET BY MOUTH TWICE DAILY FOR 30 DAYS WITH THE START OF CHEMOTHERAPY Allopurinol 100 MG Oral TabletTAKE 1 TABLET DAILY. Clobetasol Propionate 0.05 % External Cream Dexamethasone 4 MG Oral TabletTAKE 5 TABLETS BY MOUTH ONCE A WEEK. TAKE AFTER BREAKFAST WEEKLY ON DAYS SCHEDULED FOR INJECTABLE CHEMOTHERAPY Famotidine 20 MG Oral TabletTAKE 1 TABLET BY MOUTH ONCE DAILY Fluticasone Propionate 50 MCG/ACT Nasal SuspensionInhale 2 sprays in each nostril 1 time daily Furosemide 40 MG Oral TabletTake 1 tablet daily Gemfibrozil 600 MG Oral TabletTake 1 tablet daily NIFEdipine ER 30 MG Oral Tablet Extended Release 24 HourTAKE 1 TABLET DAILY. Revlimid 15 MG Oral Capsule Vitals Vital Signs Recorded: 04Feb2022 01:40PM Heart Rate72 Phkixcna974 Evstodgfm73 Height4 ft 9 in Aguvcd643 lb 3 oz BMI Gkytqkhyhl64.28 kg/m2 BSA Calculated1.59 Tobacco Useb) No Falls Screening (Age 18+)a) No falls within the last year O2 Ctekcsmhsv04 Physical Exam Patient is alert and oriented 4. In no acute distress Respirati (more content not included)... Normal [facility] Tobacco Screening.on 022 Fall risk assessment a) No falls within the last year [facility]: Tobacco use status C[facility]S b) No [facility]: Hepatic Function Panelon Albumin BCP dye [Mass/Vol] 4.0 g/dL 3.4 - 5.0 [facility] Phone: ALP [Catalytic activity/Vol] 86 U/L 33 - 136 [facility]: ALT With P-5'-P [Catalytic activity/Vol] 19 U/L 7 - 45 [facility]: Comment on above: Patients treated wit h Sulfasalazine may generate falsely decreased results for ALT. AST With P-5'-P [Catalytic activity/Vol] 17 U/L 9 - 39 [facility] Work Phone: Bilirubin [Mass/Vol] 0.5 mg/dL 0.0 - 1.2 [facility] [employer] Work Phone: Bilirubin.direct [Mass/Vol] 0.1 mg/dL 0.0 - 0.3 [facility] [employer] Work Phone: Protein [Mass/Vol] 6.4 g/dL 6.4 - 8.2 [facility]: Lipase, Serumon 02-02-2022 Lipase [Catalytic activity/Vol] 13 U/L 9 - 82 [facility] [employer] Work Phone: Comment on above: Venipuncture immedia tely after or during the administration of Metamizole may lead to falsely low results. Testing should be performed immediately prior to Metamizole dosing. BONE DENSITY, DEXA 1 OR MORE SITES: AXIAL SKELETONon 12-21-2021 BONE DENSITY, DEXA 1 OR MORE SITES: AXIAL SKELETON Patient Name: LAURI READ STUDY: BONE DENSITY, DEXA 1 OR MORE SITES: AXIAL SKELETN12/21/2021 10:02 am INDICATION: menopause Z78.0 Asymptomatic menopausal stateThe patient is a 71 year old female for a screening bone Densitometry (DEXA). COMPARISON: None. ACCESSION NUMBER(S): [id number] ORDERING CLINICIAN: THELMA FRAZIER TECHNIQUE: Bone Densitometry (DEXA) of the lumbar spine and left hip performed. FINDINGS: Name: LAURI READ Date:1950 Height:144.7 Gender:F Exam Date:12/21/2021 Weight:66 Indications:menopause Z78.0 Asymptomatic menopausal state Fractures:None Treatments:None LEFT FEMUR -TOTAL Bone Mineral Density: 0.889 g/cm2 T-Score -0.4 Z-Score 1.2 LEFT FEMUR -NECK Bone Mineral Density: 0.776 g/cm2 T-Score -0.7 Z-Score 1.2 SPINE L1-L4 Bone Mineral Density: 1.121 g/cm2 T-Score 0.7 Z-Score 2.9 World Health Organization (WHO) criteria for post-menopausal, Women: Normal: T-score at or above -1 SD Osteopenia: T-score between -1 and -2.5 SD Osteoporosis: T-score at or below -2.5 SD 10-Year Fracture Risk: FRAX NA IMPRESSION: According to World Health Organization criteria, classification is normal. Followup recommended in 2 years or sooner as clinically warranted. Electronically signed by: HUNG GARCIA MD Normal [facility] Xray Bone Density, Dexa 1 or More Siteson 12-21-2021 DXA Bone [Mass/Area] Bone density Normal -[facility] [employer] Phone: [facility] Follow-up visit Diagnoses/Problems Acute sinusitis (461.9) (J01.90) Rib pain on right side (786.50) (R07.81) Orders Rib pain on right side Xray Ribs Unilateral with PA Cxr 3 View; Status:Hold For - Scheduling; Requested for:16Nov2021; Laterality : Right Radiologist to Determine Optimal Study : Y What are the patient's signs and symptoms? : severe pain and PMH Multiple Myeloma Patient Discussion/Summary She will go get her rib x-rays completed today and have agreed to call her with results when they come back Chief Complaint Pt presents for 2 wk COVID f/u; continues to have left side facial pain. This note was generated by using ShowKit software. It may contain errors in wording, punctuate, or spelling. She is here today for evaluation of 2 conditions. First of all she contracted COVID-19 about 2 weeks ago and was placed on the antiviral medication. Subsequently she developed a lot of sinus symptoms and ended up the dentist. The dentist diagnosed her as having acute sinusitis and prescribed Amoxil which she had started back Tuesday. She states she was having some left ear pain and sinus pressure but today she feels like her symptoms have made a turn for the better. She currently is no longer having pain in the left ear and neck region. We did conduct a full review of systems and we decided to stay course with her current treatment. She will complete the Amoxil for the full 10-day course and of course she will call if she feels like things or not going according to plan. She is also been having some right-sided pain in the anterior lateral rib region. She states she saw her chiropractor and he did x-rays many months ago of the thoracic spine. [...] her with the results of the x-rays. Review of Systems Denies fevers but has fatigue. On Amoxil since Tuesday for sinus infection Left ear pain Denies shortness of breath, some coughing, wheezing Denies chest pain, palpitations, leg edema Denies nausea, vomiting, some diarrhea Denies significant joint pain . 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) Acute pain of right knee (719.46) (M25.561) Acute sinusitis (461.9) (J01.90) BMI 31.0-31.9,adult (V85.31) (Z68.31) Carotid stenosis (433.10) (I65.29) Carpal tunnel syndrome (354.0) (G56.00) COVID-19 virus infection (079.89) (U07.1) Fatigue (780.79) (R53.83) GERD (gastroesophageal reflux disease) (530.81) (K21.9) HTN (hypertension), benign (401.1) (I10) Hypertriglyceridemia (272.1) (E78.1) Hyperuricemia (790.6) (E79.0) Hyponatremia (276.1) (E87.1) Left shoulder pain (719.41) (M25.512) Low back pain, episodic (724.2) (M54.50) Medicare annual wellness visit, subsequent (V70.0) (Z00.00) Menopause (627.2) (Z78.0) Multiple myeloma (203.00) (C90.00) Nocturnal hypoxemia (327.24) (G47.34) Obesity (BMI 30.0-34.9) (278.00) (E66.9) PND (post-nasal drip) (784.91) (R09.82) Prediabetes (790.29) (R73.03) Screening for colorectal cancer (V76.51,V76.41) (Z12.11,Z12.12) COLOGUARD: NEGATIVE Shoulder pain, right (719.41) (M25.511) Skin lesion of chest wall (709.9) (L98.9) Past Medical History History of mammography, diagnostic (V15.89) (Z92.89) [facility] Surgical History History of Breast biopsy History of Cholecystectomy History of Dilation and curettage History of Tubal ligation Family History Family history of hypercholesterolemia (V18.19) (Z83.42) Family history of lung cancer (V16.1) (Z80.1) Family history of thyroid disease (V18.19) (Z83.49) Social History Daily caffeine consumption, 2-3 servings a day Does not use illicit drugs (V49.89) (Z78.9) Never smoked tobacco (V49.89) (Z78.9) No advance directives (V49.89) (Z78.9) No alcohol use Allergies No Known Drug Allergies Recorded By: Stefanie Gotti; 05/10/2019 4:38:43 PM Current Meds Medication NameInstructionReason Furosemide 40 MG Oral TabletTake 1 tablet dailyHTN (hypertension), benign Allopurinol 100 MG Oral TabletTAKE 1 TABLET DAILY.Hyperuricemia Fluticasone Propionate 50 MCG/ACT Nasal SuspensionInhale 2 sprays in each nostril 1 time dailyMultiple myeloma NIFEdipine ER 30 MG Oral Tablet Extended Release 24 HourTAKE 1 TABLET DAILY.PMH: History of uncontrolled hypertensi (more content not included)... Normal [facility] RIBS, UNILATERAL, W PA CXR 3 VIEWSon 11-16-2021 RIBS, UNILATERAL, W PA CXR 3 VIEWS Patient Name: LAURI READ STUDY: RIBS, UNILATERAL, W PA CXR 3 VIEWS; Right; 11/16/2021 1:15 pm INDICATION: severe pain and PMH Multiple Myeloma R07.81: Rib pain on right side. COMPARISON: None. ACCESSION NUMBER(S): [id number] ORDERING CLINICIAN: THELMA FRAZIER FINDINGS: CHEST PA: Mild cardiomegaly is present. No hilar or mediastinal enlargement. The lungs are clear. No infiltrate or effusion. RIGHT RIBS-AP AND OBLIQUE VIEWS No fracture is seen. The cortical margins are intact. IMPRESSION: No acute disease in the chest. Mild cardiomegaly. No right rib fracture or lytic lesion. Electronically signed by: VIRGINIA ARRIOLA MD Normal [facility] Radiologyon 11-16-2021 XR Ribs - left 3 Views Normal [facility] Phone: Tobacco Screening.on 022 Fall risk assessment a) No falls within the last year [email or web address] [facility] Phone: Tobacco use status CPHS b) No M [facility] [employer] Phone: Office Visiton 11-03-2021 Follow-up visit Diagnoses/Problems COVID-19 virus infection (079.89) (U07.1) Orders COVID-19 virus infection Start: Lagevrio 200 MG Oral Capsule; TAKE 4 CAPSULE Twice daily Patient Discussion/Summary Please make an appointment for couple weeks from now to evaluate her abdominal pain and please call her and tell her that right before she comes she will need lab work including LFTs and lipase with a diagnosis of abdominal pain. Thank you Chief Complaint An interactive audio and video telecommunication system which permits real time communications between the patient (at the originating site) and provider (at the distant site) was utilized to provide this telehealth service. Tested positive for COVID this morning. Body aches. This note was generated by using ShowKit software. It may contain errors in wording, punctuate, or spelling. We discussed her recent positive COVID-19 test. She [...] couple of weeks to evaluate her symptoms. Review of SystemsC/O temp 98.76 which she calls low grade. C/O some fatigue. Nasal congestion with sore throat Denies shortness of breath, some coughing, wheezing Denies chest pain, palpitations, leg edema Denies nausea, vomiting, occ diarrhea Denies significant joint pain . 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) Acute pain of right knee (719.46) (M25.561) Acute sinusitis (461.9) (J01.90) BMI 31.0-31.9,adult (V85.31) (Z68.31) Carotid stenosis (433.10) (I65.29) Carpal tunnel syndrome (354.0) (G56.00) Fatigue (780.79) (R53.83) GERD (gastroesophageal reflux disease) (530.81) (K21.9) HTN (hypertension), benign (401.1) (I10) Hypertriglyceridemia (272.1) (E78.1) Hyperuricemia (790.6) (E79.0) Hyponatremia (276.1) (E87.1) Left shoulder pain (719.41) (M25.512) Low back pain, episodic (724.2) (M54.50) Medicare annual wellness visit, subsequent (V70.0) (Z00.00) Menopause (627.2) (Z78.0) Multiple myeloma (203.00) (C90.00) Nocturnal hypoxemia (327.24) (G47.34) Obesity (BMI 30.0-34.9) (278.00) (E66.9) PND (post-nasal drip) (784.91) (R09.82) Prediabetes (790.29) (R73.03) Screening for colorectal cancer (V76.51,V76.41) (Z12.11,Z12.12) COLOGUARD: NEGATIVE Shoulder pain, right (719.41) (M25.511) Skin lesion of chest wall (709.9) (L98.9) Past Medical History History of mammography, diagnostic (V15.89) (Z92.89) [facility] Surgical History History of Breast biopsy History of Cholecystectomy History of Dilation and curettage History of Tubal ligation Social History Daily caffeine consumption, 2-3 servings a day Does not use illicit drugs (V49.89) (Z78.9) Never smoked tobacco (V49.89) (Z78.9) No advance directives (V49.89) (Z78.9) No alcohol use Allergies No Known Drug Allergies Recorded By: Stefanie Gotti; 05/10/2019 4:38:43 PM Current Meds Medication NameInstruction Acyclovir 400 MG Oral TabletTAKE 1 TABLET BY MOUTH TWICE DAILY FOR 30 DAYS WITH THE START OF CHEMOTHERAPY Allopurinol 100 MG Oral TabletTAKE 1 TABLET DAILY. Clobetasol Propionate 0.05 % External Cream Dexamethasone 4 MG Oral TabletTAKE 5 TABLETS BY MOUTH ONCE A WEEK. TAKE AFTER BREAKFAST WEEKLY ON DAYS SCHEDULED FOR INJECTABLE CHEMOTHERAPY Famotidine 20 MG Oral TabletTAKE 1 TABLET BY MOUTH ONCE DAILY Fluticasone Propionate 50 MCG/ACT Nasal SuspensionInhale 2 sprays in each nostril 1 time daily Furosemide 40 MG Oral TabletTake 1 tablet daily Indomethacin 25 MG Oral CapsuleTAKE 1 CAPSULE 3 times daily NIFEdipine ER 30 MG Oral Tablet Extended Release 24 HourTAKE 1 TABLET DAILY. Ondansetron 8 MG Oral Tablet DisintegratingDISSOLVE 1 TABLET IN MOUTH EVERY 8 HOURS NEEDED FOR NAUSEA AND VOMITING Revlimid 15 MG Oral Capsule Physical Exam Alert and oriented NAD except when she started crying out in pain with her abdominal pain Respirations are easy and regular Signatures Electronically signed by : Thelma Frazier DO; Nov 03 2021 1:05PM EST (Author) Normal [facility] Established Visit (Nephrolog y)on 10-01-2021 Established Visit (Nephrology) Diagnoses/Problems Obesity (BMI 30.0-34.9) (278.00) (E66.9) Hyperuricemia (790.6) (E79.0) HTN (hypertension), benign (401.1) (I10) Orders HTN (hypertension), benign Renew: Furosemide 40 MG Oral Tablet (Lasix); Take 1 tablet daily Basic Metabolic Panel; Status:Active; Requested for:01Oct2021; Total Protein, Urine Spot; Status:Active; Requested for:01Oct2021; Uric Acid, Serum; Status:Active; Requested for:01Oct2021; Urinalysis; Status:Active; Requested for:01Oct2021; Hyperuricemia Renew: Allopurinol 100 MG Oral Tablet; TAKE 1 TABLET DAILY Patient Discussion/Summary Issues: 1. HTN well controlled on current regimen. 2. Edema is stable on Lasix. 3. Continue Allopurinol Renal function is normalized. Continue as she is on. Follow up in 1 year with labs and urine study. Provider Impressions Resistant hypertension Peripheral Edema with Volume Overload-stable Possible Sleep Apnea Obesity HLD Acid Reflux Hyperuricemia Multiple Myeloma NSAID Use. Chief Complaint 3 mo fuv labs 09/22 History of Present IllnessShe is here for follow-up secondary to resistant hypertension. She is on allopurinol, Lasix, nifedipine, she also does use NSAIDs on a daily basis Her blood pressure today is 130/78. At home if she is taking her blood pressures and she is averaging in the 130 over 70s. She had blood work drawn on September 22 Her blood work shows a hemoglobin of 12.0 her BUN is 15 with a creatinine of 0.64 her albumin is a little on the low side at 2.9 her electrolytes look pretty normal her bicarb is 30 She is feeling well. No complaints. She has some swelling. She is trying to slate picker her activity. Review of Systems Constitutional: no fever, no chills, no recent weight gain and no recent weight loss. Eyes: no blurred vision and no diplopia. ENT: no hearing loss, no earache, no sore throat, no swollen glands in the neck and no nasal discharge. Cardiovascular: lower extremity edema, but no chest pain and no palpitations. Respiratory: no shortness of breath, no chronic cough and no shortness of breath during exertion. Gastrointestinal: no abdominal pain, no constipation, no heartburn, no vomiting, no bloody stools and no change in bowel movements. Genitourinary: no dysuria and no hematuria. Musculoskeletal: no arthralgias and no myalgias. Skin: no rashes and no skin lesions. Neurological: no headaches and no dizziness. Psychiatric: no confusion, no depression and no anxiety. Endocrine: no heat intolerance, no cold intolerance, appetite not increased, no thyroid disorder, no increased urinary frequency and no dry skin. Hematologic/Lymphatic: does not bleed easily and does not bruise easily. All other systems have been reviewed and are negative for complaint. 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) Acute pain of right knee (719.46) (M25.561) Acute sinusitis (461.9) (J01.90) BMI 31.0-31.9,adult (V85.31) (Z68.31) Carotid stenosis (433.10) (I65.29) Carpal tunnel syndrome (354.0) (G56.00) Fatigue (780.79) (R53.83) GERD (gastroesophageal reflux disease) (530.81) (K21.9) HTN (hypertension), benign (401.1) (I10) Hypertriglyceridemia (272.1) (E78.1) Hyperuricemia (790.6) (E79.0) Hyponatremia (276.1) (E87.1) Left shoulder pain (719.41) (M25.512) Low back pain, episodic (724.2) (M54.50) Medicare annual wellness visit, subsequent (V70.0) (Z00.00) Menopause (627.2) (Z78.0) Multiple myeloma (203.00) (C90.00) Nocturnal hypoxemia (327.24) (G47.34) Obesity (BMI 30.0-34.9) (278.00) (E66.9) PND (post-nasal drip) (784.91) (R09.82) Prediabetes (790.29) (R73.03) Screening for colorectal cancer (V76.51,V76.41) (Z12.11,Z12.12) COLOGUARD: NEGATIVE Shoulder pain, right (719.41) (M25.511) Skin lesion of chest wall (709.9) (L98.9) Past Medical History History of mammography, diagnostic (V15.89) (Z92.89) [facility] Surgical History History of Breast biopsy History of Cholecystectomy History of Dilation and curettage History of Tubal ligation Family History Family history of hypercholesterolemia (V18.19) (Z83.42) Family history of lung cancer (V16.1) (Z80.1) Family history of thyroid disease (V18.19) (Z83.49) Social History Daily caffeine consumption, 2-3 servings a day Does not use illicit drugs (V49.89) (Z78.9) Never smoked tobacco (V49.89) (Z78.9) No advance directives (V49.89) (Z78.9) No alcohol use Allergies No Known Drug Allergies Recorded By: Stefanie Gotti; 05/10/2019 4:38:43 PM Current Meds Medication NameInstruction Acyclovir 400 MG Oral TabletTAKE 1 TABLET BY MOUTH TWICE DAILY FOR 30 DAYS WITH THE START OF CHEMOTHERAPY Allopurinol 100 MG Oral TabletTAKE 1 TABLET DAILY. Clobetasol Propionate 0.05 % External Cream Dexamethasone 4 MG Oral TabletTAKE 5 TABLETS BY MOUTH ONCE A WEEK. TAKE AFTER BREAKFAST WEEKLY ON DAYS SCHEDULED FOR INJECTABLE CHEMOTHERAPY Famotidine 20 MG Oral TabletTAKE 1 TABLET BY MOUTH ONCE DAILY Fl (more content not included)... Normal [facility] Radiologyon 09-14-2021 XR Cervical spine 4 Views Normal [facility] Jared 3 DO Work Phone: XR Thoracic spine 3 Views Normal [facility] Jared 3 DO Work Phone: SPINE, CERVICAL MIN 4 VIEWSo 09-14-2021 SPINE, CERVICAL MIN 4 VIEWS Patient Name: LAURI READ STUDY: SPINE, CERVICAL MIN 4 VIEWS; 09/14/2021 10:45 am INDICATION: SEGMENTAL AND SOMATIC DYSFUNCTION OF CERVICAL REGION SEGMENTAL AND SOMATIC DYSFUNCTION OF THORACIC REGION. COMPARISON: None ACCESSION NUMBER(S): [id number] ORDERING CLINICIAN: ROBINA ORTEGA TECHNIQUE: 5 views of the cervical spine were obtained. These included AP, lateral, open-mouth, and oblique views. FINDINGS: Vertebral body height was preserved throughout. Slight disc space narrowing at C5-6. Moderate anterior osteophytes at C4-5 and C5-6, with mild endplate spurring at C6-7. Incidental nuchal ligament calcification posteriorly at the C5 level. Uncovertebral hypertrophy with spur formation at C5-6. Mild multilevel interfacet hypertrophy with spur formation. No destructive bone lesion. No prevertebral soft tissue swelling. The dens was grossly intact. No definite listhesis. Mild bilateral foraminal narrowing at C5-6, greater on the left than on the right.. Small calcifications in the region of each carotid bulb. The imaged lung apices were grossly clear. No tracheal deviation. 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 Electronically signed by: ASHUTOSH JONES MD [facility] SPINE, THORACIC, 3 VIEWSon 0 09-14-2021 SPINE, THORACIC, 3 VIEWS Addendum Begins Patient Name: LAURI READ ADDENDUM: This is an addendum to the original report. Please note that the arthritic changes in the cervical spine are actually bridging anterior osteophytes at C4-5 and C5-6 with more mild endplate spurring at C6-7, and mild disc space narrowing is actually at C5-6. Electronically signed by: ASHUTOSH JONES MD Addendum Ends Patient Name: LAURI READ STUDY: SPINE, THORACIC, 3 VIEWS; 09/14/2021 10:45 am INDICATION: SEGMENTAL AND SOMATIC DYSFUNCTION OF CERVICAL REGION SEGMENTAL AND SOMATIC DYSFUNCTION OF THORACIC REGION. COMPARISON: None. ACCESSION NUMBER(S): [id number] ORDERING CLINICIAN: ROBINA ORTEGA TECHNIQUE: Frontal and lateral views of the thoracic spine were obtained. FINDINGS: There is gxry-no-amyvvmej disc space narrowing and endplate osteophytosis throughout the thoracic spine. There is moderate anterior osteophytosis in the mid to distal cervical spine. There is slight disc space narrowing at C6-7 and C7-T1. No thoracic spine compression fracture. No destructive bone lesion. No paraspinal soft tissue swelling. No tracheal deviation. The imaged lungs were grossly clear. IMPRESSION: DJD in the mid and distal cervical spine and throughout the thoracic spine as described. Electronically signed by: ASHUTOSH JONES MD [facility] Coding Summary.on 08-26-2021 Coding Summary. CD:[id number] Gh0 bWw+PGhlYWQ+JI6CTVMqX69 ekIPfeR6KF2nFXT2KHQHOAC PGKR8GBH3tkZK3QShzL0Wkc iAv BfnanBTxTK51EHd9XIO1iQf vUIwuyF4xuKPtH8d0GpDpDU 08iQ51GNjzLPDdQjM3KrVwn jsgbWFy N0pwNtYjsAQcKkh+PHRhYmx lIHdpZHRoPScxMDAlJyBzdH tpXI4fNf6aRBAnSYXaySxha HNlOiBj p4olOZGoPNniZF0acPwbH6E mkSH5QSWmv4s0Cv55tKM+PH AuGHI0qAruZRjlq118GeAln 3kjQWB6 uMGqTFgiSXR9B03mm4Y0WOR yFOSpSJU9gGM2bX2zxXjztk kwW0GpiDCeFoP5NUS9tAGuc L5kwMlk laborS3fFzn+F46HXS8DJRJ JJZ2XYgb6T8OlPrlacCM+PC 48PTQeMC11wWHxaTWbu2tyw Zo2WfXp OIKcYRH5gSeaCPubx4OvNVC bD92dkUPcb7F3PULpaFftoD CwQjRxqGS4gT2mAAlcocaos 2hvdzsn Saezv5uulw75aA64A16jXVq gJSFmLLZ5BDIyAYIhhXkanl 9yuJ0xAi0+XXlqs3wjl0ypk Ot4KcKn FYOubfImrEtxPAP4h5GsZe5 2U4OiyGjuo1VwWbu4oe10xS Chj4B0wYY8ETcdTESsjM1iX WxlZnQ6 DCMbTgRadO34xUPqWXzhFb3 zfLneqIvhPX1fWLAvpfdwGM NnlR6vSDCdmCOfeGxoWN0jI TBpbjtm n246AcAvZIN6RKGbhNQcQ0U pjP2gMzMsVNDlLGJmF8XwxH VkHEauH857NQqgXpM4EOUql vIcQ2Ai BKAhdXroEqF5h4N6Bf0Rt9W hijryELR6DOquKUE6FlT1Yk IyPuL3J8XfXhs5NGAutKwkU P5uA7Wy EWDsnkjsdlbqoYY6PSZiOTZ qrK13bCFyXQoeNx0az1B1m8 35CMNxBDRrgE65Mz8weWqcQ TBwdCBU gH9eemzfh7fjxpurHcEePZX yJLf0NZf1MHBmeCsdUsHoFJ T1TsV4TLT6bIEkrZ2mjEdct jckhP3k Oyc+F70paG1rKZD3IKT2pjp rGCIkpgXaDU15OZ14D7DlFu wvdGFibGU+PGRpdiBzdHlsZ Y8bHrQy a9vwk1QbFWwnD6BoRZOwPUh iBvg2SGGeHFG1kXC5pT8cOY HpUNvrp3V3wXO9J4AsyiKss n4bv4lk GHTbOJpaI52qyDBsw0Z9TQN isDJ2BGGskRdlIjOrnZ03Iw c+DDWoeOwnj0BrEfckc7uab 7bevFb6 ZrRtSOOmygEmsIhsPUM5n0W qEg34M20oLExjYUHoCAFgBV MdUKWwvEwxpm8jtI5yKb5+P GNvbCB3 xYG3cM5hYLEpPsT6NYvtY16 7CiRdrYGxIgkcz1pkm6xgwT p3MoYuVZFrmdXxfBakOGY1d 6XyLx94 J12hWAqfFBFxMNBzPCKtASB cvOijjv4ryJ7sNz5+PC9jb2 bxni27vC37xVV+EDZxAWY8a WxlPSdw HBOwbI9dRWfqFiB6QOZrXwD zdV38kUOcKPtnLo0phXiflG laSU8lAZJzagwsq827KkUan 2xkIDEw qFUaLKbzQOE9P14qo2H3MEZ fGHSiPTH3cSF8wS6qyUrumf ogbGVmdDsgdmVydGljYWwtY WkeV756 IHRvcDsnPlBhdGllbnQgTmF bAYx2V1OlMna1VJQljSorPG 3gxTQeOOtgJo1xpXntdOnvD P0qFSKl vpchc523OsWck1hbTMIclEM qKWmeGNH8U05gh4M1NIVzUE YoKKX2iTY1hB6vxLozyvhfr GVmdDsg mgOfyQxdBVvmVDutG568ZWX hyKkqMrYvqbWoLHOlpXF1MK 90NH15oPZow4F8bTA5L8GnP GRpbmct tylbcNU8IIZmAVIoqS04Oa6 nyBmyMw3tSAEwYPB6ZELyzT GeD0IxoX6yRyVjUALdUHDlK 3RleHQt JBtaQ409VKpoSnJ1PSDyxsW rD9EoRENzaOftQuS2b3M3Hc 5QD1E8OC32UK17zAEww5Y0s UB7X4Os JINdmezaioxsbPS3DOCqCKG wtT73Dn6ieKrkXw2cBFEkID P6OTZrsOReB0OcbZ0iPwJiF DAwMDAw K7XboNFcXCbeU290VLbtAlT 1DXQkfxYvR4JyALShtFmoVz Q7a5S1Se0CJWv7JZ58VS04p IPkv9F6 dJR1K4OzLDNywqvyoncddGD 4BMDoQMLxmY95Ae1enMwwCn 4vZTWnGNB3WRZelGFgH9Fcr Y1aInOw MNMxVHNhT3GgpORuGGnnR93 7JHjzJbD2JPKmuxZlD9QgNU CgoJayPcD1z4M9Nt8XNPGyX T15FEY2 kRT5WG01JR34U3DyTntwrRJ ibGU+PHRhYmxlIHdpZHRoPS djNTPzPfBwlEwyNJ5mOx4wX GVyLWNv kGxrsHMuGtKql2uiOEUlFXn pYW3mjCloK6CsyFS5MGVmi4 i3Ik24Y77bG4HwqNW+PGNvb OJ9aYI1 hM5lPxReNtJ6BQtrG911KzM gvVZkHzrxk4geg6eenDw9Wy W8JCSkakHoeNedSGO8x9BjB f67O71s IHdpZHRoPSIxNSUiIHZhbGl pux0naS0cGm2+YBBxaNE6rK I1yG4uHjMfFqT0YGzyY828Q nRvcCIv Araah4gdj0uerGk9EmSnLUL ybwKykOnyYVA9k6PyZo76I2 KmoGapy1HpPdq3ai40hWNrc 7V4kSL9 X9LsNDXxhjvffKCvfQfvKE9 yBRWsjbskSHPjyH4sDIYyM8 h8WeTiJqT7VHirI8XleuU6F DEwcHQg DRutKUO9V38el2K8DMCiMRA xDWN8mSR9hY1mjPqtxcpcoQ VmdDsgdmVydGljYWwtYWxpZ 246IHRv hZwkOOActR8nVUWmcGRfaAf gLV8kNRXssubdZwjBH1RMTD wgTkVWQTwvdGQ+CLCcHVX7i WxlPSdw HHHklQ9wFCLiX0f5XtMyYnC 1UGpdU9XcWTFbpiulBl37jP 6vUeJjGhZ0BHimQ5KpikI8X DEwcHQg FAnnYRW3S96li8I7XHRxXAZ jKCV8pFJ3kF0arJemoccbnY VmdDsgdmVydGljYWwtYWxpZ 246IHRv nRmqXtPcXgS6ZvM0FWZ1S0A tXgi5QXJxpCsxWJ5tmTMfUP hpWh5daNypzPtvAT7gEOGyg jtwYWRk lP6nJAShiEKncSxyTE3pAXL cjlwew559MvNxXDF2UXLobY FdW5ErzJ9fUlGzMDLxBPIiZ 3RleHQt KVloR731JIdqHlY0NIWjtbM qG2NrLMSriIisBcE9p5X4Zy 43MSBZZWFyczwvdGQ+PHRkI DL9dIdt RSgmYVYwgL1oCPDzW3i0LuJ gTiY1ZAwyT7WtIYXuqulpRo 79nS7cFjDiQmQ5JOosW4Bup rV7GOHm hXSmFDuoQBV6W46gy3P0RUK gIKJtOQJ6aFG3xN9uvGjpya ogbGVmdDsgdmVydGljYWwtY MviP738 IHRvcDsnPkZlbWFsZTwvdGQ +FVRtEHJ6vVrgSPrnGVKhvJ 7rMZGeS8z7OnScVdO3NYxnH 3BhZGRp ilvxFh48dL6lEaNaSrP1IRj bR4GzgwM5SAEvvRFgRGghAQ K0C48kd5N5PBCjXUZnYWN6c BJ0xH1x bGlnbjogbGVmdDsgdmVydGl hLXdlUNgzC294TSIrzBigZj GqEKSnAZ4pgEdaqYX+PC90c z05Y0Rg WegfJgu4EDUcDEX6wHI6kM7 wCYCkJZcfh0E9tCG6M8Nvez Jfgn5ff4cmOGFoSUafE35qb TGxi5J4 YBQslYI7SQXrsYhaCxYzeP5 3Oyc+ZYJgzKqii7BzHiftk0 yuw2upgRr1BmIlDKPgcwUzr WduPSJ0 x4NiAm92A10mQOoxVKLeMSR mJJIwYKCcpAiqyg2qhJ9kIm 8+LGKmrHB7bMX7eU1bLiUqV dR8QFcx N942KiZdhVQsLqsgp9hyd2n umYn9PfQbOBOrozSibDnnHA P8d1XgJp84E6YjbNchf6XdV ak7jg57 xDNdh4I4uPI5V5ZuUSSluja ppFNtvCyxML8jASHtzalsXV GrgE5yGNCfT9f0UpJwGeU2E RrnB8Zw hbC0GAMtrQTiJLSxwBVYrQ4 sukoyz2ltqghtIcMeGAWkMR m8WPj2MSXbwPsvSuMhLJB8B vG7SWD7 fEMinD7rdZwlowlguE8aKhs +DRb7s2vmdIMyQK3siES5ZQ 34OC50gCDqp5Z4sXS8K9QxB GRpbmct lmtzwFM7PJKqZULxzR73Rm2 nhWopAb4wLCUqGZM6TMOrqZ XoW7UzkB5eYhTgVBOjWLCtK 3RleHQt ROzsF792WKylNmZ3DGHcoxJ wI0KkNHAscWarFmR7s2N7Ds 2HWS20GV75AO47jYNno9Q3k RK6L1Hk SSSisulaobuzdWN4ZLOcFPJ zwB15Xz3ohPxpNo1yETArFP W1IOHoaCPcD4RspV4gDfDwB DAwMDAw M1CyeSMeRJlgB296PQgvFpD 5BJMfheLjP6QiXUMhuBqrRz U1r7K5Ay1HZj92JJ41CO43y BRbo9V3 vLE1Z6ApJNHopwjshopzzVO 2HHWwWJBdqQ66Io1wsAqvWg 6kHWIqELW2BRWznCYmQ1Cpi Z7hAeDf EGLsQXSpN4IajEOuNClwZ01 2KIirZgT7ERJennLsF2TwCD OywDyhIuF4v3O5Sh7XXXkpc nl4A6Rw PjwvdHI+OV58LGGeGM11rQM wjKLlf3imoVb1ImSeYUGlVE S4yZpiTEltu1OvEDShR80cn YSyf6P5 IGNv (more content not included)... Normal [facility] Serum or plasma uric acid me asurement (mass/volume)on 08-25-2021 Urate [Mass/Vol] 4.4 mg/dL 2.6-6.0 [facility] Comment on above: The drugs N-Acetylcy steine and Metamizole may falsely depress this assay. Office Visiton 08-24-2021 Follow-up visit Diagnoses/Problems Acute pain of right knee (719.46) (M25.561) Acute gout of ankle (274.01) (M10.9) Orders Acute gout of ankle Start: Indomethacin 25 MG Oral Capsule; TAKE 1 CAPSULE 3 times daily Acute pain of right knee Xray Knee 3 View; Status:Hold For - Scheduling; Requested for:24Aug2021; Laterality : Right Radiologist to Determine Optimal Study : Y What are the patient's signs and symptoms? : right knee pain. Hx gout and myeloma Patient Discussion/Summary She is going to go for an x-ray of her knee today and I have agreed to call her with results. I sent a prescription to your pharmacy for an acute gouty flare and please give her the printed handout on gout. She will call us if her condition does not resolve. Chief Complaint Pt is here today with the C/O gout in right ankle, right knee pain. This note was generated by using ShowKit software. It may contain errors in wording, punctuate, or spelling. She is here today for evaluation of an acute onset of pain and swelling involving her right ankle and knee. She states she was worried about some Swelling so she appropriately went to the emergency department on Tuesday night. Because it was late Tuesday [facility] did not have a Doppler to do a test so they redirected her to an emergency room in [place]. She went there and they do the Doppler and thankfully she did not have any evidence of a DVT. We are reminded that she has been diagnosed with myeloma. She also has a history of gout and is on allopurinol. I do believe what I see today is likely fulfillment representative of an acute gouty flare. I [...] if this does not help the situation. Review of SystemsC/O fatigue. Denies shortness of breath, coughing, wheezing Denies chest pain, palpitations, leg edema Denies nausea, vomiting, occ diarrhea with diet. Denies heartburn, abdominal pain, or black or bloody stools Denies significant joint pain . No back pain Denies feelings of significant anxiety or depression Active Problems Acute sinusitis (461.9) (J01.90) BMI 31.0-31.9,adult (V85.31) (Z68.31) Carotid stenosis (433.10) (I65.29) Carpal tunnel syndrome (354.0) (G56.00) Fatigue (780.79) (R53.83) GERD (gastroesophageal reflux disease) (530.81) (K21.9) HTN (hypertension), benign (401.1) (I10) Hypertriglyceridemia (272.1) (E78.1) Hyperuricemia (790.6) (E79.0) Hyponatremia (276.1) (E87.1) Left shoulder pain (719.41) (M25.512) Low back pain, episodic (724.2) (M54.50) Medicare annual wellness visit, subsequent (V70.0) (Z00.00) Menopause (627.2) (Z78.0) Multiple myeloma (203.00) (C90.00) Nocturnal hypoxemia (327.24) (G47.34) Obesity (BMI 30.0-34.9) (278.00) (E66.9) PND (post-nasal drip) (784.91) (R09.82) Prediabetes (790.29) (R73.03) Screening for colorectal cancer (V76.51,V76.41) (Z12.11,Z12.12) COLOGUARD: NEGATIVE Shoulder pain, right (719.41) (M25.511) Skin lesion of chest wall (709.9) (L98.9) Past Medical History History of mammography, diagnostic (V15.89) (Z92.89) [facility] Surgical History History of Breast biopsy History of Cholecystectomy History of Dilation and curettage History of Tubal ligation Social History Daily caffeine consumption, 2-3 servings a day Does not use illicit drugs (V49.89) (Z78.9) Never smoked tobacco (V49.89) (Z78.9) No advance directives (V49.89) (Z78.9) No alcohol use Allergies No Known Drug Allergies Recorded By: Stefanie Gotti; 05/10/2019 4:38:43 PM Current Meds Medication NameInstruction Acyclovir 400 MG Oral TabletTAKE 1 TABLET BY MOUTH TWICE DAILY FOR 30 DAYS WITH THE START OF CHEMOTHERAPY Allopurinol 100 MG Oral TabletTAKE 1 TABLET DAILY. Clobetasol Propionate 0.05 % External Cream Dexamethasone 4 MG Oral TabletTAKE 5 TABLETS BY MOUTH ONCE A WEEK. TAKE AFTER BREAKFAST WEEKLY ON DAYS SCHEDULED FOR INJECTABLE CHEMOTHERAPY Famotidine 20 MG Oral TabletTAKE 1 TABLET BY MOUTH ONCE DAILY Fluticasone Propionate 50 MCG/ACT Nasal SuspensionInhale 2 sprays in each nostril 1 time daily Furosemide 40 MG Oral TabletTake 1 tablet daily NIFEdipine ER 30 MG Oral Tablet Extended Release 24 HourTAKE 1 TABLET DAILY. Ondansetron 8 MG Oral Tablet DisintegratingDISSOLVE 1 TABLET IN MOUTH EVERY 8 HOURS NEEDED FOR NAUSEA AND VOMITING Revlimid 15 MG Oral Capsule Vitals Vital Signs Recorded: 24Aug2021 09:58AM Heart Rate71 Gwrjlqot667 Qxhswpomo98 Height4 ft 9.5 in Vunomn061 lb 5 oz BMI Mevionqrpi52.69 kg/m2 BSA Calculated1.58 Tobacco Useb) N (more content not included)... Normal [facility] 08-24-2021 XR Knee 3 Views Normal [facility] Work Phone: Tobacco Screening.on 022 Fall risk assessment a) No falls within the last year [facility] Phone: Tobacco use status CPHS b) No M [facility] Work Phone: Discharge Instructionson Discharge Instructions [id number] CD:127 Normal [facility] US LE Venous Duplex Righton 08-23-2021 US LE Venous Duplex Right Exam Date/Time: 08/22/2021 21:25 EDT Reason for Exam: Leg pain Report IMPRESSION: NO EVIDENCE OF VENOUS THROMBOSIS INVOLVING VISUALIZED DEEP VEINS OF THE RIGHT LEG. CLINICAL HISTORY: Leg pain. COMMENT: On the right, the greater saphenous vein, common femoral vein, deep femoral vein, femoral vein, and popliteal vein demonstrate spontaneous phasic venous flow, with augmentation, non-pulsatility, and compressibility every 2 cm. The right posterior tibial and peroneal veins of the deep venous system compress. The contralateral left common femoral vein demonstrates spontaneous phasic venous flow. FINAL REPORT Dictated: 08/23/2021 11:29 am Freddie Diamond M.D. Signed (Electronic Signature): 08/23/2021 11:29 am Signed by: Freddie Diamond M.D. Transcribed by: NARGIS Technologist: HW Normal [facility] Auto Diffon 08-22-2021 Basophils/100 WBC (Bld) 3.6 % High 0.0-2.0 [facility] Comment on above: Order Comment: Order Added by Discern Expert. Performed By: #### 1 [id number], 6632870, 99915052, 7260103, 2702213 #### [facility] [address] [place] [address] Basophils/Leukocytes Auto (Bld) [Pure # fraction] 0.2 E9/L Normal 0.0-0.2 [facility] Comment on above: Order Comment: Order Added by Discern Expert. Performed By: #### 1 7782043, 5921063, 38917415, 1243030, 1648200 #### [facility] [address] [place] [address] Eosinophils/100 WBC (Bld) 10.9 % High 0.0-8.0 [facility] Comment on above: Order Comment: Order Added by Discern Expert. Performed By: #### 1 8060787, 8798022, 98641111, 7862811, 7310517 #### [facility] [address] [place] [address] Eosinophils/Leukocytes Auto (Bld) [Pure # fraction] 0.5 E9/L Normal 0.0-0.5 [facility] Comment on above: Order Comment: Order Added by Discern Expert. Performed By: #### 1 3525310, 3468808, 05334687, 0692422, 6341171 #### [facility] [address] [place] [address] 01784 Lymphocytes/100 WBC (Bld) 34.7 % Normal 14.0-50.0 [facility] Comment on above: Order Comment: Order Added by Discern Expert. Performed By: #### 1 8451869, 2018343, 53355782, 4750241, 7170390 #### [facility] [address] [place] [address] Lymphocytes/Leukocytes Auto (Bld) [Pure # fraction] 1.6 E9/L Normal 1.0-4.0 [facility] Comment on above: Order Comment: Order Added by Discern Expert. Performed By: #### 1 1545702, 6022883, 89779928, 2328089, 4035977 #### [facility] [address] [place] [address] Monocytes/100 WBC (Bld) 10.8 % Normal 4.0-14.0 [facility] Comment on above: Order Comment: Order Added by Discern Expert. Performed By: #### 1 3819759, 9850697, 44594112, 1153686, 7454026 #### [facility] [address] [place] [address] Monocytes/Leukocytes Auto (Bld) [Pure # fraction] 0.5 E9/L Normal 0.2-1.0 [facility] Comment on above: Order Comment: Order Added by Discern Expert. Performed By: #### 1 9043832, 6597669, 91227401, 4310412, 8586640 #### [facility] [address] [place] [address] Neutrophils/100 WBC (Bld) 40.0 % Normal 36.0-75.0 [facility] Comment on above: Order Comment: Order Added by Discern Expert. Performed By: #### 1 4003606, 9115698, 97263141, 3765299, 9616712 #### [facility] [address] [place] [address] Neutrophils/Leukocytes Auto (Bld) [Pure # fraction] 1.9 E9/L Low 2.0-7.5 [facility] Comment on above: Order Comment: Order Added by Discern Expert. Performed By: #### 1 8878636, 6604318, 35303028, 3035539, 2646748 #### [facility] [address] [place] [address] BMPon 08-22-2021 Creatinine [Mass/Vol] 0.9 mg/dL Normal 0.5-1.3 [facility] Comment on above: Performed By: #### 1 8107407, 2864291, 80155751, 4462243, 0030058 #### [facility] [address] [place] [address] Urea nitrogen [Mass/Vol] 18 mg/dL Normal 5-21 [facility] Comment on above: Performed By: #### 1 9213440, 4869762, 21872967, 4181710, 3410669 #### [facility] [address] [place] [address]7979 Urea nitrogen/Creatinine [Mass ratio] 20 No Units Normal 10-20 [facility] Comment on above: Performed By: #### 1 6145488, 8738247, 79391296, 8089798, 1517975 #### [facility] [address] [place] [address] Anion gap [Moles/Vol] 8 mmol/L Normal 6-16 [facility] Comment on above: Performed By: #### 1 0305520, 3425222, 85292252, 9541882, 5224598 #### [facility] [address] [place] [address] Calcium [Mass/Vol] 8.5 mg/dL Low 8.9-11.1 [facility] Comment on above: Performed By: #### 1 6986100, 7835908, 26973715, 0151807, 9421707 #### [facility] [address] [place] [address] Chloride [Moles/Vol] 103 mmol/L Normal 101-111 [facility] Comment on above: Performed By: #### 1 3878836, 2211000, 56495047, 7906217, 3660154 #### [facility] [address] [place] [address] CO2 [Moles/Vol] 27 mmol/L Normal 21-31 [facility] Comment on above: Performed By: #### 1 6439981, 2506016, 81805040, 3262863, 3627567 #### [facility] [address] [place] [address] Glucose [Mass/Vol] 91 mg/dL Normal 55-199 [facility] Comment on above: Result Comment: If t his glucose result represents a fasting glucose, interpretation should refer to the following reference range: 55-99 mg/dL Performed By: #### 1 1611843, 9291045, 36006632, 5245220, 3249759 #### [facility] [address] [place] [address] Potassium [Moles/Vol] 3.6 mmol/L Normal 3.5-5.3 [facility] Comment on above: Performed By: #### 1 1956791, 1079697, 18202254, 5292492, 6297446 #### [facility] [address] [place] [address] Sodium [Moles/Vol] 134 mmol/L Low 135-145 [facility] Comment on above: Performed By: #### 1 1552948, 9899961, 31369483, 7983668, 9970942 #### [facility] [address] [place] [address] CBC w/ Auto Diffon Erythrocyte distribution width (RBC) [Ratio] 15.1 % High 10.9-14.2 [facility] Comment on above: Performed By: #### 1 2089397, 4507354, 76611821, 4693818, 3600770 #### [facility] [address] [place] [address] Hematocrit (Bld) [Volume fraction] 32.1 % Low 34.0-46.0 [facility] Comment on above: Performed By: #### 1 5755247, 5772459, 09694341, 0103038, 9048850 #### [facility] [address] [place] [address] Hemoglobin (Bld) [Mass/Vol] 10.7 g/dL Low 12.0-16.0 [facility] Comment on above: Performed By: #### 1 2146077, 8094237, 97776322, 3541914, 4271770 #### [facility] [address] [place] [address] MCH (RBC) [Entitic mass] 29.4 pg Normal 27.0-34.0 [facility] Comment on above: Performed By: #### 1 4844281, 9063878, 05804090, 4136397, 7625821 #### [facility] [address] [place] [address] MCHC (RBC) [Mass/Vol] 33.4 g/dL Normal 31.4-36.0 [facility] Comment on above: Performed By: #### 1 1408705, 4535047, 42079904, 5273908, 8936924 #### [facility] [address] [place] [address] MCV (RBC) [Entitic vol] 87.8 fL Normal 80.0-100.0 [facility] Comment on above: Performed By: #### 1 6347790, 1322346, 96119094, 9237664, 1071853 #### [facility] [address] [place] [address] Platelet mean volume (Bld) [Entitic vol] 8.3 fL Normal 6.4-10.8 [facility] Comment on above: Performed By: #### 1 3816886, 9376151, 92560040, 4576997, 2329036 #### [facility] [address] [place] [address] Platelets (Bld) [#/Vol] 197.0 E9/L Normal 150.0-500.0 [facility] Comment on above: Performed By: #### 1 3320170, 2451760, 46191458, 5455417, 5491106 #### [facility] [address] [place] [address] RBC (Bld) [#/Vol] 3.7 E12/L Low 4.3-5.9 [facility] Comment on above: Performed By: #### 1 7494368, 8570523, 20442181, 9863424, 2590596 #### [facility] [address] [place] [address] WBC corrected for nucl RBC Auto (Bld) [#/Vol] 4.6 E9/L Normal 4.0-11.0 [facility] Comment on above: Performed By: #### 1 2589000, 0682286, 11063722, 7807393, 7092078 #### [facility] [address] [place] [address] Consent for Treatmenton Consent for Treatment [id number] D:127 Normal [facility] ED Clinical Summaryon 2021 ED Clinical Summary (Inserted Image. Chantell ble to display) [address] [address] ED Clinical Summary Person Information Name: LAURI READ/Rafa Age: 71 Years : 1950 Sex: Female Language: Prydeinig PCP: THELMA FRAZIER DO Marital Status: Visit Id: Visit Reason: Knee pain-swelling; Leg pain-swelling; SENT BY [facility]- POSS BLOOD CLOTS IN RT LEG Speciality: Acuity: 3 Enc Type: Emergency Med Service: Emergency Arrival: 08/22/2021 20:30:35 Discharge: 08/22/2021 21:40:00 LOS: 000 01:10 Checkin: 08/22/2021 20:30:35 Checkout: 08/22/2021 21:40:00 Dispo Type: Home (Routine DC) EVENTS: Event Name Event Status Request Date/Time Start Date/Time Complete Date/Time Arrive Complete 08/22/2021 20:30:35 08/22/2021 20:30:35 08/22/2021 20:30:35 Document Home Meds Request 08/22/2021 20:30:35 Triage Complete 08/22/2021 20:30:35 08/22/2021 20:36:40 08/22/2021 20:36:40 Bed Assign Complete 08/22/2021 20:36:56 08/22/2021 20:36:56 08/22/2021 20:36:56 Dr Exam Complete 08/22/2021 20:36:56 08/22/2021 20:38:53 08/22/2021 20:38:53 RN Exam Complete 08/22/2021 20:36:56 08/22/2021 20:45:38 08/22/2021 20:45:38 Registration Complete 08/22/2021 20:38:53 08/22/2021 21:02:37 08/22/2021 21:02:37 US Complete 08/22/2021 20:44:28 08/22/2021 21:07:41 08/22/2021 21:25:38 Pending Labs Complete 08/22/2021 20:45:11 08/22/2021 21:24:14 Lab Complete 08/22/2021 20:45:11 08/22/2021 21:24:14 Reg Complete Request 08/22/2021 21:02:37 Reg Bed Request Complete 08/22/2021 21:02:37 08/22/2021 21:02:37 08/22/2021 21:02:37 Pending Labs Complete 08/22/2021 21:07:46 08/22/2021 21:07:46 08/22/2021 21:24:15 Lab Complete 08/22/2021 21:07:46 08/22/2021 21:07:46 08/22/2021 21:24:15 Pending Labs Complete 08/22/2021 21:12:00 08/22/2021 21:12:00 08/22/2021 21:12:07 Lab Complete 08/22/2021 21:12:00 08/22/2021 21:12:00 08/22/2021 21:12:07 Discharge Complete 08/22/2021 21:36:00 08/22/2021 21:43:13 08/22/2021 21:43:13 Transfer Complete 08/22/2021 21:43:13 08/22/2021 21:43:13 08/22/2021 21:43:13 ADDRESS: [address] [place] [id number] PHYS DOC NOTES: MEDICAL INFORMATION: Prescriptions Given: PATIENT EDUCATION INFORMATION: Instructions: Peripheral Edema Follow up: With: Address: When: THELMA FRAZIER [address] [place], [place] [id number] [facility] ([employer] In 3 days 08/25/2021 Comments: Call the office of your primary care doctor to arrange for follow-up within the above-stated timeframe. Follow-up with your primary care doctor about this ED visit. You should review your labs, imaging, and diagnoses from this ED visit with your primary care physician. If you were prescribed medications you should discuss possible side-effects and drug interactions with your pharmacist. Call 911 or go to the nearest Emergency Department if you develop any new or worsening symptoms. Watch for signs of infection. If your leg becomes red, warm to the touch you experience fever, decreased range of motion, difficulty walking or other new or concerning symptoms return immediately. DIAGNOSIS: Edema of right lower leg Normal [facility] ED Note-Physicianon 08-23-19 ED Note-Physician Basic Information Time Seen: Kendall Maynard DO 08/22/2021 20:38 History of Present Illness 71-year-old female to the emergency department with chief complaint of right lower extremity swelling. Patient reports that she had gout recently that has resolved in her right ankle. She does have a history of gout previous to this. She is also being treated for multiple myeloma. Patient has swelling in her right lower extremity that began 2 days ago. She reports some mild calf tenderness. No redness, warmth. No fever, sweats, chills. She reports that her leg feels tight and it makes it difficult to bend her knee. Her oncologist wants her to receive an ultrasound duplex study. Review of Systems A 10 point review of systems is negative except as noted above. Medical and Surgical History: Reviewed and noted Social history: Lives at home Tobacco: Denies Physical Exam Vitals & Measurements T: 36.8 ?C(Oral) HR: 78(Peripheral) RR: 16 BP: 146/71 SpO2: 97% HT: 147.3 cm HT: 147.32 cm WT: 65.8 kg WT: 65.8 kg BMI: 30.32 VITALS: I have reviewed the triage vital signs. GENERAL: Well developed, well appearing adult female in no acute distress. NEURO: Alert and oriented. Moves all extremities. Face is symmetric and expressive. Normal gait. EYES: PERRL. No scleral icterus or conjunctival injection. No discharge. HENT: Normocephalic, atraumatic. Hearing is grossly intact. Nares grossly patent and without discharge. Mucous membranes moist. NECK: No JVD. Patient moves neck without restriction. Right lower extremity: DP and PT pulses are intact. Sensation intact over the lower extremity. Compartments are soft. There is mild edema from ankle to proximal leg. Ankle without any redness, warmth. Knee without any redness or warmth. Normal range of motion the ankle. Patient is able to flex the knee to about 80 degrees before she feels discomfort and tightness. SKIN: Warm and dry. Normal turgor. No rash or lesions appreciated. PSYCH: Mood, affect, and interaction is appropriate to the setting. Medical Decision Making 71-year-old female to the emergency department chief complaint of swelling in her right lower extremity. Concern for DVT. She was sent from [facility] for duplex study. Right lower extremity is neurovascularly intact. Ultrasound duplex studies ordered. Basic labs are ordered. CBC is unremarkable. Chemistry unremarkable. Duplex was negative for DVT. Findings reviewed with the patient. She was again reexamined. Mild swelling from the ankle to the marte. Does not appear to be septic arthritis by history or exam. We discussed options at this time. Joint decision making plan to apply Lukas wrap. Watch carefully. If any distal signs of infection develop or symptoms worsen she will return for repeat evaluation. Patient agrees with this plan. Return precautions were discussed. Patient was discharged home. Assessment/Plan Edema of right lower leg (R60.0: Localized edema) Orders: Automated Diff Basic Metabolic Panel CBC w/ Auto Diff eGFR PT & PTT US LE Venous Duplex Right Disposition Plan Patient Discharge Condition stable Discharge Disposition home Discharge Prescription List Prescriptions No active prescription medications Follow-up With When Contact Information THELMA ROYAL In 3 days 08/25/[address] Business (1) Additional Instructions: Call the office of your primary care doctor to arrange for follow-up within the above-stated timeframe. Follow-up with your primary care doctor about this ED visit. You should review your labs, imaging, and diagnoses from this ED visit with your primary care physician. If you were prescribed medications you should discuss possible side-effects and drug interactions with your pharmacist. Call 911 or go to the nearest Emergency Department if you develop any new or worsening symptoms. Watch for signs of infection. If your leg becomes red, warm to the touch you experience fever, decreased range of motion, difficulty walking or other new or concerning symptoms return immediately. Patient Education Peripheral Edema Problem List/Past Medical History Ongoing No qualifying data Historical No qualifying data Medications Inpatient No active inpatient medications Home No active home medications Allergies No Known Allergies Social History Alcohol - Denies Alcohol Use, 08/22/2021 Substance Abuse - Denies Substance Abuse, 08/22/2021 Tobacco - Denies Tobacco Use, 08/22/2021 Lab Results No qualifying data available. Diagnostic Results No qualifying data available. Normal [facility] Comment on above: Result Comment: Elec tronically Signed By: Kendall Maynard DO\.br\Date and Time Signed: 08/22/21 21:42 EDT ED Patient Education Noteon 08-22-2021 ED Patient Education Note Nephrology Peripheral Edema Peripheral edema is swelling that is caused by a buildup of fluid. Peripheral edema most often affects the lower legs, ankles, and feet. It can also develop in the arms, hands, and face. The area of the body that has peripheral edema will look swollen. It may also feel heavy or warm. Your clothes may start to feel tight. Pressing on the area may make a temporary dent in your skin. You may not be able to move your swollen arm or leg as much as usual. There are many causes of peripheral edema. It can happen because of a complication of other conditions such as congestive heart failure, kidney disease, or a problem with your blood circulation. It also can be a side effect of certain medicines or because of an infection. It often happens to women during . Sometimes, the cause is not known. Follow these instructions at home: Managing pain, stiffness, and swelling ? Raise (elevate) your legs while you are sitting or lying down. ? Move around often to prevent stiffness and to lessen swelling. ? Do not sit or stand for long periods of time. ? Wear support stockings as told by your health care provider. Medicines ? Take nzqo-ava-bxehgku and prescription medicines only as told by your health care provider. ? Your health care provider may prescribe medicine to help your body get rid of excess water (diuretic). General instructions ? Pay attention to any changes in your symptoms. ? Follow instructions from your health care provider about limiting salt (sodium) in your diet. Sometimes, eating less salt may reduce swelling. ? Moisturize skin daily to help prevent skin from cracking and draining. ? Keep all follow-up visits as told by your health care provider. This is important. Contact a health care provider if you have: ? A fever. ? Edema that starts suddenly or is getting worse, especially if you are or have a medical condition. ? Swelling in only one leg. ? Increased swelling, redness, or pain in one or both of your legs. ? Drainage or sores at the area where you have edema. Get help right away if you: ? Develop shortness of breath, especially when you are lying down. ? Have pain in your chest or abdomen. ? Feel weak. ? Feel faint. Summary ? Peripheral edema is swelling that is caused by a buildup of fluid. Peripheral edema most often affects the lower legs, ankles, and feet. ? Move around often to prevent stiffness and to lessen swelling. Do not sit or stand for long periods of time. ? Pay attention to any changes in your symptoms. ? Contact a health care provider if you have edema that starts suddenly or is getting worse, especially if you are or have a medical condition. ? Get help right away if you develop shortness of breath, especially when lying down. This information is not intended to replace advice given to you by your health care provider. Make sure you discuss any questions you have with your health care provider. Document Released: 06/16/2005 Document Revised: 01/31/2019 Document Reviewed: 01/31/2019 KVK TEAM Patient Education ? 2019 [employer]. Normal [facility] ED Patient Summaryon 022 ED Patient Summary (Inserted Image. Chantell ble to display) [place] [id number] Patient Discharge Instructions Person Information Name: LAURI READ Age: 71 Years Arrival Date: 08/22/2021 20:30:35 Discharge Diagnosis: Edema of right lower leg Primary Care Physician: THELMA FRAZIER DO Provider Information Primary Provider: Kendall Maynard DO Advanced Finisher Polisher:None The exam and treatment you received in the Emergency Department were for an urgent problem and are not intended as complete care. It is important that you follow up with a doctor, nurse practitioner, or physician?s rehab assistant for ongoing care. If your symptoms become worse or you do not improve as expected and you are unable to reach your usual health care provider, you should return to the Emergency Department. We are available 24 hours a day. LAURI READ has been given the following list of patient education materials, prescriptions and follow-up instructions: Follow-up Instructions: With: Address: When: THELMA FRAZIER [address] [place] [address] [facility] ([employer] In 3 days 08/25/2021 Comments: Call the office of your primary care doctor to arrange for follow-up within the above-stated timeframe. Follow-up with your primary care doctor about this ED visit. You should review your labs, imaging, and diagnoses from this ED visit with your primary care physician. If you were prescribed medications you should discuss possible side-effects and drug interactions with your pharmacist. Call 911 or go to the nearest Emergency Department if you develop any new or worsening symptoms. Watch for signs of infection. If your leg becomes red, warm to the touch you experience fever, decreased range of motion, difficulty walking or other new or concerning symptoms return immediately. In the event that this physician does not participate in your insurance network, please consult with your insurance company to find a nearby participating provider. Patient Education Materials: Peripheral Edema A MESSAGE TO ALL PATIENTS REGARDING OPIOIDS PRESCRIPTION OPIOIDS: WHAT YOU NEED TO KNOW Prescription opioids can be used to help relieve bhrnsvwt-nw-jziqpc pain and are often prescribed following a surgery or injury, or for certain health conditions. These medications can be an important part of the treatment but also come with serious risks. It is important to work with your healthcare provider to make sure you are getting the safest, most effective care. WHAT ARE THE RISKS AND SIDE EFFECTS OF OPIOID USE? Prescription opioids carry serious risks of addiction and overdose, especially with prolonged use. An opioid overdose, often marked by slowed breathing, can cause sudden . The use of prescription opioids can have a number of side effects as well, even when taken as directed: ? Tolerance?meaning you might need to take more of the medication for the same pain relief ? Physical dependence?meaning you have symptoms of withdrawal when a medication is stopped ? Increased sensitivity to pain ? Constipation ? Nausea, vomiting, and dry mouth ? Sleepiness and dizziness ? Confusion ? Depression ? Low levels of testosterone that can result in lower sex drive, energy, and strength ? Itching and sweating RISKS ARE GREATER WITH: ? History of drug misuse, substance use disorder, or overdose ? Mental health conditions (such as depression or anxiety) ? Sleep apnea ? Older age (65 years and older) ? Avoid alcohol while taking prescription opioids. Also, unless specifically advised by your health care provider, medications to avoid include: ? Benzodiazepines (such as Xanax or Valium) ? Muscle relaxants (such as Soma or Flexeril) ? Hypnotics (such as Ambien or Lunesta) ? Other prescription opioids KNOW YOUR OPTIONS Talk to your health care provider about ways to manage your pain that don?t involve prescription opioids. Some of these options may actually work better and have fewer risks and side effects. Options may include: ? Pain relievers such as acetaminophen, ibuprofen, and naproxen ? Some medication that are also used for depression or seizures ? Physical therapy and exercise ? Cognitive behavioral therapy, a psychological, goal-directed approach, in which patients learn how to modify physical, behavioral, and emotional triggers of pain and stress. IF YOU ARE PRESCRIBED OPIOIDS FOR PAIN: ? Never take opioids in greater amounts or more often than prescribed. ? Follow up with your primary health care provider. o Work together to create a plan on how to manage your pain. o Talk about ways to help manage your pain that don?t involve prescription opioids. o Talk about any and all concerns and side effects. ? Help prevent misuse and abuse o Never sell or share prescription opioids. o Never use another person?s prescription opioids. (more content not included)... Normal [facility] PT & PTTon 08-22-2021 aPTT Coag (PPP) [Time] 28.8 second(s) Normal 25.1-36.5 [facility] Comment on above: Result Comment: Hepa rin therapeutic range (represented by Anti-Factor Xa activity of 0.2 - 0.4 U/mL) corresponds to PTT of 56.6 - 109.0 sec. Performed By: #### 1 [id number] #### [facility] [address] [place] [address] INR Coag (PPP) [Relative time] 1.0 {INR} Invalid Interpretation Code [facility] Comment on above: Result Comment: INR results are specifically intended to assess patients stabilized on long-term Anticoagulation therapy suggested INR?s ?Less Intensive Anticoagulation? 2.0 ? 3.0 Conventional Range 3.0 ? 4.5 Performed By: #### 1 [id number] #### [facility] [address] [place] [address] PT Coag (PPP) [Time] 12.3 second(s) Normal 10.2-12.9 [facility] Comment on above: Performed By: #### 1 [id number], [id number] #### [facility] [address] [place] [address] eGFRon 08-22-2021 GFR/1.73 sq M.predicted among blacks MDRD (S/P/Bld) [Vol rate/Area] mL/min/{1.73_m2} Normal >=59 [facility] Comment on above: Order Comment: Order added by Discern Expert. Result Comment: eGFR is race adjusted. AA=. Performed By: #### 1 [id number], [id number], [id number], [id number] #### [facility] [address] [place] [address] GFR/1.73 sq M.predicted among non-blacks MDRD (S/P/Bld) [Vol rate/Area] mL/min/{1.73_m2} Normal >=59 [facility] Comment on above: Order Comment: Order added by Discern Expert. Result Comment: Women Specialist carolyn kidney disease could be indicated at eGFR's of less than 60 mL/min/1.73m2. Kidney failure is indicated at less than 15 mL/min/1.73m2. Performed By: #### 1 [id number] #### [facility] [address] [place] [address] PT Progress Noteon 2 PT Progress Note Therapy Diagnosis Assessed Left shoulder pain [...] number: 8 supervising PT MY Medicare, [employer] Supplement Onset Date: 2020 Medicare Certification Period: [...] code time is 25 minutes. Therapeutic exercise (44245): timed minutes 34, units 2 . pulleys [...] cross arm adduction stretch R 3 x 10. Manual Therapy (11490):. supine PROM R GH flexion, scaption, ER at 45* abd X STW; to R UT and upper arm X. Provided today: a personalized home program (Scanned) and education . pulleys and scaption HEP 07/28/11 [id number], provided and reviewed with patient. 'Scores and Scales' Signatures Electronically signed by : Jeanne Mason, PT; Jul 31 2021 1:07PM EST (Author) Normal [facility] PT Progress Noteon 2 PT Progress Note Therapy Diagnosis Assessed Left shoulder pain (719.41) (M25.512) Shoulder pain, right (719.41) (M25.511) Plan Goals: Goals set and discussed today. Pt will demonstrate independence and compliance with HEP and self management, by week 2 Activity Limitation: Decrease disability as assessed by QDASH to less than or equal to 25% disability for improved QOL , by week 4 Pain: Decrease max pain to less than or equal to 2/10 for improved QOL. , by week 4 Range Of Motion/Joint Mobility: Increase R GH scaption AROM to 145 or better without pain for improved ability to reach overhead, by week 4 Strength: Increase R and L GH strength to 4+/5 throughout or better for improved ability to lift and complete cleaning chores, by week 4 Planned interventions include: education/instruction, home program, manual therapy, neuromuscular re-education, self care/home management, therapeutic activities, therapeutic exercises and cupping/IASTM . progress R and L GH ROM as tolerated, initiate strengthening as ROM improves. Frequency and duration: 2 time(s) a week, for 4 weeks, for 8 visits. Potential to achieve rehab goals is good Continue with progression of strengthening and ROM for increased ease with overhead ALD's. Progress with POC, as tolerated. Assessment Patient identified by name and date of . Patient demonstrated good tolerance progression of strengthening with increased bands. Added D1 AND D2 flexion to increase with ROM and ease with seat belt and putting her purse on the passenger seat when driving. Adult Risk Screening There are no spiritual/cultural [...] shoulder pain. Insurance Insurance reviewed Visit number: 7 supervising PT MY Medicare, [employer] Supplement Onset Date: 2020 Medicare Certification Period: Beginnin2021 Endin2021 Subjective Patient reports:. Patient reported fatigue w/o pain after treatment. Home program performing as directed: Yes. Precautions: none. Fall Risk: low relevant med hx: currently undergoing tx for cancer. Treatment Time in clinic started at 10:46 Time in clinic ended at 11:30 Total time in clinic is 44 minutes. Total timed code time is 42 minutes. Therapeutic exercise (58332): timed minutes 34, units 2 . UBE 3? fwd 3? bwd Level 2 pulleys scaption x 3 min tami GH rows, pink tube, 3 x 10 (P) B shoulder ext, pink tube, 2x10 (P) R and L GH IR with towel roll green TB 2 x 10 (P) R and L GH ER with towel roll green TB 2 x 10 (P) tricep ext with Green TB 2 x [...] cross arm adduction stretch R 3 x 10. Manual Therapy (15828): timed minutes 8, units 1 . supine PROM R GH flexion, scaption, ER at 45* abd STW; to R UT and upper arm [X - no time today]. Provided today: a personalized home program (Scanned) and education . pulleys and scaption HEP 07/28/11 [id number], provided and reviewed with patient. 'Scores and Scales' Signatures Electronically signed by : Chantell De Jesus CORPORATE COMMUNICATIONS MANAGER; Jul 27 2021 12:03PM EST (Author) Electronically signed by : Jeanne Mason, PT; Jul 31 2021 2:38PM EST Normal [facility] PT Progress Noteon 2 PT Progress Note Therapy Diagnosis Assessed Left shoulder pain (719.41) (M25.512) Shoulder pain, right (719.41) (M25.511) Plan Goals: Goals set and discussed today. Pt will demonstrate independence and compliance with HEP and self management, by week 2 Activity Limitation: Decrease disability as assessed by QDASH to less than or equal to 25% disability for improved QOL , by week 4 Pain: Decrease max pain to less than or equal to 2/10 for improved QOL. , by week 4 Range Of Motion/Joint Mobility: Increase R GH scaption AROM to 145 or better without pain for improved ability to reach overhead, by week 4 Strength: Increase R and L GH strength to 4+/5 throughout or better for improved ability to lift and complete cleaning chores, by week 4 Planned interventions include: education/instruction, home program, manual therapy, neuromuscular re-education, self care/home management, therapeutic activities, therapeutic exercises and cupping/IASTM . progress R and L GH ROM as tolerated, initiate strengthening as ROM improves. Frequency and duration: 2 time(s) a week, for 4 weeks, for 8 visits. Potential to achieve rehab goals is good Continue with progression of strengthening and ROM for increased ease with overhead ALD's. Progress with POC, as tolerated. Assessment Patient identified by name and date of . Patient required cues to slow down with exercises throughout treatment She demonstrated fair tolerance to progression of strengthening. She reported increased Sx with bwd UBE. She presented with palpable tension in R UT that responded well to STW and addition of UT stretch. Adult Risk Screening There are no spiritual/cultural [...] shoulder pain. Insurance Insurance reviewed Visit number: 6 supervising PT MY Medicare, [employer] Supplement Onset Date: 2020 Medicare Certification Period: Beginnin2021 Endin2021 Subjective Patient reports:. Patient reported she has not experienced any pain in a couple of weeks. She reported increased pain in UT after exercises that reduced with STW. She reported 0/10 pain after treatment. Home program performing as directed: Yes. Precautions: none. Fall Risk: low relevant med hx: currently undergoing tx for cancer. Treatment Time in clinic started at 10:45 Time in clinic ended at 11:25 Total time in clinic is 40 minutes. Total timed code time is 38 minutes. Therapeutic exercise (99050): timed minutes 30, units 2 . UBE 3? fwd 3? bwd Level 2 tami GH rows, purple tube, 3 x 10 (P) B shoulder ext, purple tube, 2x10 R and L GH IR with towel roll orange TB 2 x 10 R and L GH ER with towel roll orange TB 2 x 10 tricep ext with org TB 3 x 10 E supine R GH with cane flex AAROM 2 x 10 pulleys scaption x 3 min UT stretch 2x20? (N) Not today 07/20/21 Shoulder ISO x10 3? hold -flex,ext,abd,add Scap retraction x10 shoulder scaption AAROM seated table slide supine R GH ER at 45* abd AAROM 2 x 10 cross arm adduction stretch R 3 x 10. Manual Therapy (56968): timed minutes 8, units 1 . supine PROM R GH flexion, scaption, ER at 45* abd STW; to R UT and upper arm [X - no time today]. Provided today: a personalized home program (Scanned) . pulleys and scaption HEP. 'Scores and Scales' Signatures Electronically signed by : Chantell De Jesus CORPORATE COMMUNICATIONS MANAGER; Jul 23 2021 11:46AM EST (Author) Electronically signed by : Jeanne Mason, PT; Jul 31 2021 2:38PM EST Normal [facility] PT Progress Noteon 2 PT Progress Note Therapy Diagnosis Assessed Left shoulder pain (719.41) (M25.512) Shoulder pain, right (719.41) (M25.511) Plan Goals: Goals set and discussed today. Pt will demonstrate independence and compliance with HEP and self management, by week 2 Activity Limitation: Decrease disability as assessed by QDASH to less than or equal to 25% disability for improved QOL , by week 4 Pain: Decrease max pain to less than or equal to 2/10 for improved QOL. , by week 4 Range Of Motion/Joint Mobility: Increase R GH scaption AROM to 145 or better without pain for improved ability to reach overhead, by week 4 Strength: Increase R and L GH strength to 4+/5 throughout or better for improved ability to lift and complete cleaning chores, by week 4 Planned interventions include: education/instruction, home program, manual therapy, neuromuscular re-education, self care/home management, therapeutic activities, therapeutic exercises and cupping/IASTM . progress R and L GH ROM as tolerated, initiate strengthening as ROM improves. Frequency and duration: 2 time(s) a week, for 4 weeks, for 8 visits. Potential to achieve rehab goals is good Progress with POC, as tolerated. Assessment Added tricep ext to increase upper arm strength as pt reports difficulty pushing to get out of bed. Pt reports stretch sensation at end range R GH PROM scaption/flexion, denies pain. Cont progressing ROM/strengthening as lorena for increased ease lifting casserole dishes out of oven. Response to treatment: no change in pain. [...] shoulder pain. Insurance Insurance reviewed Visit number: 5 supervising PT MY Medicare, [employer] Supplement Onset Date: 2020 Medicare Certification Period: Beginnin2021 Endin2021 Subjective Patient reports:. Arms feel pretty good today. Some left arm soreness after last therapy session that got better. Compliant with HEP, not sure if she is doing band exercises right. Home program performing as directed: Yes. Precautions: none. Fall Risk: low relevant med hx: currently undergoing tx for cancer. Treatment Time in clinic started at 10:46 am Time in clinic ended at 11:28 am Total time in clinic is 42 minutes. Total timed code time is 40 minutes. Therapeutic exercise (67145): timed minutes 32, units 2 . UBE 3? fwd Level 1 tami GH rows, teal tube, 3 x 10 progressed reps B shoulder ext, teal tube, 2x10 R and L GH IR with towel roll org TB 3 x 10 (increase resistance next time) R and L GH ER with towel roll peach TB 2 x 10 N pulleys scaption x 3 min tricep ext with org TB 3 x 10 E N supine R GH with cane flex AAROM 2 x 10 Not today 07/20/21 Shoulder ISO x10 3? hold -flex,ext,abd,add Scap retraction x10 shoulder scaption AAROM seated table slide supine R GH ER at 45* abd AAROM 2 x 10 cross arm adduction stretch R 3 x 10. Manual Therapy (08399): timed minutes 8, units 1 . supine PROM R GH flexion, scaption, ER at 45* abd STW; to R UT and upper arm [X - no time today]. Provided today: a personalized home program (Scanned) . pulleys and scaption HEP. 'Scores and Scales' Signatures Electronically signed by : Jenane Mason, PT; Jul 20 2021 11:29AM EST (Author) Normal [facility] PT Progress Noteon PT Progress Note Therapy Diagnosis Assessed Shoulder pain, right (719.41) (M25.511) Left shoulder pain (719.41) (M25.512) Plan Goals: Goals set and discussed today. Pt will demonstrate independence and compliance with HEP and self management, by week 2 Activity Limitation: Decrease disability as assessed by QDASH to less than or equal to 25% disability for improved QOL , by week 4 Pain: Decrease max pain to less than or equal to 2/10 for improved QOL. , by week 4 Range Of Motion/Joint Mobility: Increase R GH scaption AROM to 145 or better without pain for improved ability to reach overhead, by week 4 Strength: Increase R and L GH strength to 4+/5 throughout or better for improved ability to lift and complete cleaning chores, by week 4 Planned interventions include: education/instruction, home program, manual therapy, neuromuscular re-education, self care/home management, therapeutic activities, therapeutic exercises and cupping/IASTM . progress R and L GH ROM as tolerated, initiate strengthening as ROM improves. Frequency and duration: 2 time(s) a week, for 4 weeks, for 8 visits. Potential to achieve rehab goals is good Plan to continue goal progression and improve tolerance with functional tasks at home. Progress with POC, as tolerated. Assessment Patient had many questions regarding her current HEP, plus updated HEP and added resistance ex's. Provided handout, door anchor, and bands (orange, green, blue). Deferred manual treatment secondary to time constraints as more time spent with ther-ex and patient education. Good tolerance to session with patient denying increase in symptoms, only mild fatigue, post-treatment. Adult Risk Screening There are no spiritual/cultural [...] rails up if applicable and pre-emptive toileting. Please identify location of pain: right shoulder pain. Insurance Insurance reviewed Visit number: 4 supervising PT MY Medicare, [employer] Supplement Onset Date: 2020 Medicare Certification Period: Beginnin2021 Endin2021 Subjective Patient reports:. Shoulders are slowly improving but still noticing weakness and soreness. Precautions: none. Fall Risk: low relevant med hx: currently undergoing tx for cancer. Treatment Time in clinic started at 0950 Time in clinic ended at 1035 Total time in clinic is 45 minutes. Total timed code time is 40 minutes. Therapeutic exercise (22359): timed minutes 40, units 3 . pulleys scaption x 3 min tami GH rows, blue band, 2 x 10 B shoulder ext, green band, 2x10 R and L GH IR with towel roll org TB 2 x 10 UBE 2? fwd 2? bwd Level 1 Shoulder ISO x10 3? hold (N) -flex,ext,abd,add shoulder scaption AAROM seated table slide supine R GH with cane flex AAROM 2 x 10 supine R GH ER at 45* abd AAROM 2 x 10 cross arm adduction stretch R 3 x 10 Scap retraction x10 . Manual Therapy (33560):. supine PROM R and L GH flexion, scaption, ER at 45* abd STW; to R UT and upper arm [X - no time today]. Provided today: a personalized home program (Scanned) . pulleys and scaption HEP. 'Scores and Scales' Signatures Electronically signed by : Rod Crawford CORPORATE COMMUNICATIONS MANAGER; Jul 16 2021 10:53AM EST (Author) Electronically signed by : Jeanne Mason, PT; Jul 16 2021 12:30PM EST Normal [facility] PT Progress Note No report was sent Normal [facility] PT Progress Noteon 2 PT Progress Note Therapy Diagnosis Assessed Shoulder pain, right (719.41) (M25.511) Left shoulder pain (719.41) (M25.512) Plan Goals: Goals set and discussed today. Pt will demonstrate independence and compliance with HEP and self management, by week 2 Activity Limitation: Decrease disability as assessed by QDASH to less than or equal to 25% disability for improved QOL , by week 4 Pain: Decrease max pain to less than or equal to 2/10 for improved QOL. , by week 4 Range Of Motion/Joint Mobility: Increase R GH scaption AROM to 145 or better without pain for improved ability to reach overhead, by week 4 Strength: Increase R and L GH strength to 4+/5 throughout or better for improved ability to lift and complete cleaning chores, by week 4 Planned interventions include: education/instruction, home program, manual therapy, neuromuscular re-education, self care/home management, therapeutic activities, therapeutic exercises and cupping/IASTM . progress R and L GH ROM as tolerated, initiate strengthening as ROM improves. Frequency and duration: 2 time(s) a week, for 4 weeks, for 8 visits. Potential to achieve rehab goals is good Progress with POC, as tolerated. Assessment C/o increased R UT pain after GH rows, decreased with STM. Added pulleys to clinic program and HEP, replaced isometric IR with TB IR. Cont progressing ROM/strengthening as lorena for increased ease raising arm overhead. Adult Risk Screening There are no spiritual/cultural [...] 10, the patient rates the pain at 2. Please identify location of pain: right shoulder pain. Insurance Insurance reviewed Visit number: 3 supervising PT MY Medicare, [employer] Supplement Onset Date: 2020 Medicare Certification Period: Beginnin2021 Endin2021 Subjective Patient reports:. Feels like shoulders have improved since starting PT. Pain 2/10 at start of session. Compliant with HEP. Home program performing as directed: Yes. Precautions: none. Fall Risk: low relevant med hx: currently undergoing tx for cancer. Treatment Time in clinic started at 11:50 am Time in clinic ended at 12:35 pm Total time in clinic is 45 minutes. Total timed code time is 42 minutes. Therapeutic exercise (19824): timed minutes 12, units 1 . pulleys scaption x 3 min tami GH rows teal tube 3 x 10 R and L GH IR with towel roll org TB 3 x 10 Not today 07/13/21: UBE 2? fwd 2? bwd Level 1 (N) Shoulder ISO x10 3? hold (N) -flex,ext,abd,add shoulder scaption AAROM seated table slide supine R GH with cane flex AAROM 2 x 10 (P) supine R GH ER at 45* abd AAROM 2 x 10 (P) cross arm adduction stretch R 3 x 10 Scap retraction x10 (N) . Manual Therapy (16273): timed minutes 30, units 2 . supine PROM R and L GH flexion, scaption, ER at 45* abd STW; to R UT and upper arm. Provided today: a personalized home program (Scanned) . pulleys and scaption HEP. 'Scores and Scales' Signatures Electronically signed by : Jeanne Mason, PT; Jul 13 2021 12:45PM EST (Author) Normal [facility] Blood manual differential co mment interpretation (narrative result)on 07-07-2021 Manual differential comment Ulisses (Bld) [Interp] COMMENT [facility] Comment on above: NEUTROPENIA. Tobacco Screening.on Fall risk assessment a) No falls within the last year -[facility] Jared 3 DO Work Phone: Tobacco use status [facility] b) No M -[facility] Jared 3 DO Work Phone: Tobacco Screening.on Fall risk assessment a) No falls within the last year -[facility] Work Phone: Tobacco use status [facility] b) No M -[facility] Work Phone: Tobacco Screening.on Fall risk assessment a) No falls within the last year [facility] Work Phone: Tobacco use status [facility] b) No M -[facility] Work Phone: BONE MARROW CHROMOSOME MARCI Amparo 06-15-2021 BONE MARROW CHROM.ANALYSIS SEE BELOW Normal [facility] Comment on above: Result Comment: G enetics test results are available electronically in [facility] Acute and Community Record. Results will be sent on a separate report. In the AEMR, go to Community record -> click on Clinical documents -> go to Genetics Studies tab for results. Performed By: #### B MCH1 #### [facility] [address] [address] [place], [place] [id number] FISH MULTIPLE MYELOMAon 05-23 FISH MULTIPLE MYELOMA SEE BELOW Normal [facility] Comment on above: Result Comment: G enetics test results are available electronically in [facility] Acute and Community Record. Results will be sent on a separate report. In the AEMR, go to Community record -> click on Clinical documents -> go to Genetics Studies tab for results. Performed By: #### F ISMM #### [facility] [address] [address] [place], [place] [id number] Iron measurement (mass/mass) on 06-02-2021 Iron (Unsp spec) [Mass/Mass] 52 ug/dL 50-170 [facility] Laboratory - Chemistry and C hemistry - challengeon 06-02-2021 Cobalamin (Vitamin B12) [Mass/Vol] 299 pg/mL 211-911 [facility] No Panel Informationon 06-02 Total Iron Binding Capacity 422 ug/dL 250-450 [facility] Serum or plasma ferritin bebo surement (mass/volume)on 06-02-2021 Ferritin [Mass/Vol] 577 ng/mL 8-252 [facility] Serum or plasma iron saturat ion measurement (mass fraction)on 06-02-2021 Iron saturation [Mass fraction] 12.3 % 15.0-55.0 [facility] No Panel Informationon 05-27 [email or web address] ?={[id number]} [facility] Work Phone: Coronavirus 2019 RNA by PCR, Screening Asymptomticon 05-25-2021 Coronavirus 2019 RNA by PCR, Screening Asymptomtic Not detected Normal See Below [facility] Work Phone: Comment on above: SOURCE: Nasal, Nasop haryngealReference Range: Not Detected.This assay is designed to detect the N, ORF1ab and/or S genes of SARS-CoV-2 via nucleic acid amplification. A Negative (NOT DETECTED) result does not preclude 2019-nCoV infection since the adequacy of sample collection and/or low viral burden may result in presence of viral nucleic acids below the clinical sensitivity of this test method. Negative (NOT DETECTED) result should not be used as the sole basis for treatment or other patient management decisions. Rather negative results should be combined with clinical observations, patient history, and epidemiological information to make patient management decisions.Fact sheet for providers: https://www.fda.gov/media/232991/downloadFact sheet for patients: https://www.fda.gov/media/446108/downloadThis test has received FDA Emergency Use Authorization (EUA) and has been verified by [facility] ([facility]). This test is only authorized for the duration of time that circumstances exist to justify the authorization of the emergency use of in vitro diagnostic tests for the detection of SARS-CoV-2 virus and/or diagnosis of COVID-19 infection under section 564(b)(1) of the Act, 21 U.S.C. 360bbb-3(b)(1), unless the authorization is terminated or revoked sooner. [facility] is certified under CLIA-88 as qualified to perform high complexity testing. Testing is performed in the [facility] laboratories located at [address] [place] [address]. Tobacco Screening.on 021 Fall risk assessment a) No falls within the last year [facility] Work Phone: Tobacco use status [facility] b) No M [facility] Work Phone: [id number], Serumo n 05-08-2021 [id number] [Mass/Vol] 3.9 ug/mL above high threshold 0.7 - 2.2 [facility] Work Phone: Complete Blood Count + Diffe rentialon 05-08-2021 Basophils/100 WBC (Bld) 1.4 % 0.0 - 2.0 M [facility] Work Phone: Erythrocyte distribution width (RBC) [Ratio] 13.8 % See Below [facility] Work Phone: Comment on above: Reference Range: 11. 5 - 14.5 Hematocrit (Bld) [Volume fraction] 30.8 % below low threshold See Below [facility] Work Phone: [phone] Comment on above: Reference Range: 36. 0 - 46.0 Hemoglobin (Bld) [Mass/Vol] 10.6 g/dL below low threshold See Below [facility] Work Phone: [phone] Comment on above: Reference Range: 12. 0 - 16.0 Lymphocytes/100 WBC (Bld) 35.7 % See Below [facility] Work Phone: [phone] Comment on above: Reference Range: 13. 0 - 44.0 MCHC (RBC) [Mass/Vol] 34.3 g/dL See Below [facility] Work Phone: [phone] Comment on above: Reference Range: 32. 0 - 36.0 MCV (RBC) [Entitic vol] 90 fL 80 - 100 M [facility] Work Phone: [phone] Monocytes/100 WBC (Bld) 14.7 % 2.0 - 10.0 M [facility] [employer] [facility] Work Phone: [phone] Neutrophils/100 WBC (Bld) 45.6 % See Below [facility] Work Phone: [phone] Comment on above: Reference Range: 40. 0 - 80.0 Platelets (Bld) [#/Vol] 356 10*3/uL 150 - 450 [facility] [employer] [facility] Work Phone: [phone] RBC (Bld) [#/Vol] 3.43 {x10E12/L} below low threshold See Below [facility] Work Phone: [phone] Comment on above: Reference Range: 4.0 0 - 5.20 WBC (Bld) [#/Vol] 3.1 10*3/uL below low threshold 4.4 - 11.3 [facility] Work Phone: [phone] Complete Blood Count + Differential 0.00 {x10E9/L} See Below [facility] Work Phone: [phone] Comment on above: Reference Range: 0.0 0 - 0.10 Complete Blood Count + Differential 0.10 {x10E9/L} See Below [facility] Work Phone: Comment on above: Reference Range: 0.0 0 - 0.40 Complete Blood Count + Differential 0.50 {x10E9/L} See Below [facility] Work Phone: Comment on above: Reference Range: 0.0 5 - 0.80 Complete Blood Count + Differential 1.10 {x10E9/L} See Below [facility] Work Phone: Comment on above: Reference Range: 0.8 0 - 3.00 Complete Blood Count + Differential 1.40 {x10E9/L} below low threshold See Below [facility] Work Phone: Comment on above: Reference Range: 1.6 0 - 5.50 Percent differential counts (%) should be interpreted in the context of the absolute cell counts (cells/L). Complete Blood Count + Differential 2.6 % 0.0 - 6.0 [facility] Work Phone: Complete Blood Count + Differential 0.2 {/100_WBC} [facility] Work Phone: Ferritin, Serumon 05-08-2021 Ferritin [Mass/Vol] 635 ug/L above high threshold 8 - 150 [facility] Work Phone: Folate, Serumon 05-08-2021 Folate [Mass/Vol] ng/mL >5.0 [facility] Work Phone: Comment on above: SOURCE: Low <3.4Bord santi 3.4-5.0Normal >5.0. Patients receiving more than 5 mg/day of biotin may have interference in test results. A sample should be taken no sooner than eight hours after previous dose. Contact the testing laboratory for additional information. HIV 1/2 ANTIGEN/ANTIBODY SCR EEN WITH REFLEX TO CONFIRMATIONon 05-08-2021 HIV 1+2 Ab Qn (S) Non-Reactive See Below [facility] Work Phone: Comment on above: SOURCE: Reference Ra nge: NONREACTIVE HIV Ag/Ab screen is performed using the Siemens Atellica HIV Ag/Ab Combo assay which detects the presence of HIV p24 antigen as well as antibodies to HIV-1 (Group M and O) and HIV-2..No laboratory evidence of HIV infection. If acute HIV infection is suspected, consider testing for HIV RNA by PCR (viral load). Hepatitis B Surface Antigeno 05-08-2021 Hepatitis B Surface Antigen Non-Reactive See Below [facility] Work Phone: Comment on above: SOURCE: Reference Ra nge: NONREACTIVE Biotin interference may cause falsely decreased results. Patients taking a Biotin dose of up to 5 mg/day should refrain from taking Biotin for 24 hours before sample collection. Providers may contact their local laboratory for further information. SOURCE: Reference Ra nge: NONREACTIVE Results from patients taking biotin supplements or receiving high-dose biotin therapy should be interpreted with caution due to possible interference with this test. Providers may contact their local laboratory for further information. Laboratory - Chemistry and C hemistry - challengeon 05-08-2021 Protein (24H U) [Mass/Vol] 186 {mg/24h} above high threshold 0 - 149 [facility] Work Phone: Albumin [Mass/Vol] 4.0 g/dL 3.4 - 5.0 [facility] Work Phone: Albumin BCP dye [Mass/Vol] 3.7 g/dL 3.4 - 5.0 [facility] Work Phone: ALP [Catalytic activity/Vol] 63 U/L 33 - 136 [facility] Work Phone: ALT With P-5'-P [Catalytic activity/Vol] 15 U/L 7 - 45 [facility] Work Phone: Comment on above: Patients treated wit h Sulfasalazine may generate falsely decreased results for ALT. Anion gap [Moles/Vol] 9 mmol/L below low threshold 10 - 20 [facility] Work Phone: AST With P-5'-P [Catalytic activity/Vol] 18 U/L 9 - 39 [facility] Work Phone: Bilirubin [Mass/Vol] 0.4 mg/dL 0.0 - 1.2 [facility] Work Phone: Calcium [Mass/Vol] 9.4 mg/dL 8.6 - 10.3 [facility] Work Phone: Chloride [Moles/Vol] 99 mmol/L 98 - 107 [facility] Work Phone: CO2 [Moles/Vol] 28 mmol/L 21 - 32 [facility] Work Phone: Creatinine [Mass/Vol] 0.68 mg/dL See Below [facility] Work Phone: Comment on above: Reference Range: 0.5 0 - 1.05 Glucose [Mass/Vol] 99 mg/dL 74 - 99 [facility] Work Phone: IgA [Mass/Vol] 58 mg/dL below low threshold 70 - 400 [facility] Work Phone: Comment on above: MONOCLONAL PROTEINS MAY CAUSE FALSELY LOWRESULTS IN THIS ASSAY. SERUM PROTEINELECTROPHORESIS SHOULD BE DONE THEFIRST TEST TO EVALUATE MONOCLONAL GAMMOPATHY. IgG [Mass/Vol] 3110 mg/dL above high threshold 700 - 1600 [facility] Work Phone: Comment on above: MONOCLONAL PROTEINS MAY CAUSE FALSELY LOWRESULTS IN THIS ASSAY. SERUM PROTEINELECTROPHORESIS SHOULD BE DONE THEFIRST TEST TO EVALUATE MONOCLONAL GAMMOPATHY. IgM [Mass/Vol] mg/dL Abnormal 40 - 230 [facility] Work Phone: Comment on above: MONOCLONAL PROTEINS MAY CAUSE FALSELY LOWRESULTS IN THIS ASSAY. SERUM PROTEINELECTROPHORESIS SHOULD BE DONE THEFIRST TEST TO EVALUATE MONOCLONAL GAMMOPATHY. Iron [Mass/Vol] 91 ug/dL 35 - 150 [facility] Work Phone: Iron binding capacity [Mass/Vol] 387 ug/dL 240 - 445 [facility] Work Phone: LDH [Catalytic activity/Vol] 125 U/L 84 - 246 [facility] Work Phone: Potassium [Moles/Vol] 3.4 mmol/L below low threshold 3.5 - 5.3 [facility] Work Phone: Protein [Mass/Vol] 9.9 g/dL above high threshold 6.4 - 8.2 [facility] Work Phone: Sodium [Moles/Vol] 133 mmol/L below low threshold 136 - 145 -[facility] Work Phone: Urea nitrogen [Mass/Vol] 19 mg/dL 6 - 23 -[facility] Work Phone: Laboratory - Urinalysison Protein (U) [Mass/Vol] 8 mg/dL See Below [facility] Work Phone: Comment on above: Reference Range: Not Established No Panel Informationon 05-08 NORMAL [facility] Work Phone: 1.7 % See Below [facility] Work Phone: Comment on above: Reference Range: Not Established 7.5 % See Below [facility] Work Phone: Comment on above: Reference Range: Not Established 3.0 % See Below [facility] Work Phone: Comment on above: Reference Range: Not Established 80.3 % See Below [facility] Work Phone: [phone] Comment on above: Reference Range: Not Established 2325 mL [facility] Work Phone: 24 {hr} -[facility] Work Phone: 1.96 1 above high threshold See Below [facility] Work Phone: Comment on above: Reference Range: 0.2 6 - 1.65 Undetected antigen excess is a rare event but cannot be excluded. If these free light chain results do not agree with other clinical or laboratory findings, or if the sample is from a patient that has previously demonstrated antigen excess, the result must be checked by retesting at a higher sample dilution. Results should always be interpreted in conjunction with other laboratory tests and clinical evidence; any anomalies should be discussed with the testing laboratory. 0.76 mg/dL See Below [facility] Work Phone: Comment on above: Reference Range: 0.5 7 - 2.63 1.49 mg/dL See Below [facility] Work Phone: Comment on above: Reference Range: 0.3 3 - 1.94 24 % below low threshold 25 - 45 [facility] Work Phone: >60 >60 [facility] Work Phone: Comment on above: CALCULATIONS OF GILBERT MATED GFR ARE PERFORMED USING THE MDRD STUDY EQUATION FOR THE IDMS-TRACEABLE CREATININE METHODS. CLIN CHEM 2007;[id number] ABNORMAL [facility] Work Phone: Comment on above: Known monoclonal IgG kappa in the gamma region at 2.6 g/dL. Last detected on 04/08/21 at 3.1 g/dL. Aberrant band detect ed. See immunofixation.Increased levels of alpha 2 globulins. 2.6 g/dL Abnormal See Below [facility] Work Phone: Comment on above: Reference Range: Not Detected 3.3 g/dL above high threshold 0.5 - 1.4 [facility] Work Phone: 0.9 g/dL 0.5 - 1.2 [facility] Work Phone: 1.2 g/dL above high threshold 0.4 - 1.1 [facility] Work Phone: 0.4 g/dL 0.2 - 0.6 [facility] Work Phone: Path Review Protein Electrop edward 05-08-2021 Path Review Protein Electrophoresis A.FORREST [facility] Work Phone: Comment on above: By her/his signature above, the Pathologist listed as making the final interpretation certifies that she/he has personally reviewed this case. Path Review SPEon 05-08-2021 Path Review BRIDGER HUNTER [facility] Work Phone: Comment on above: By her/his signature above, the Pathologist listed as making the final interpretation certifies that she/he has personally reviewed this case. Vitamin B12, Serumon 021 Cobalamin (Vitamin B12) [Mass/Vol] 397 pg/mL 211 - 911 [facility] Work Phone: Comment on above: SOURCE: FLOW CYTOMETRY TESTon 2020 SOURCE BONE MARROW Normal [facility] Comment on above: Result Comment: [id number] Performed By: #### F CTST #### [facility] [address] [place] [address] SURF MARKERS >15,PATH REVon 05-04-2021 PATH REV. >15 MARKERS C.ASHWIN Normal [facility] Comment on above: Result Comment: By h er/his signature above, the Pathologist listed as making the final interpretation certifies that she/he has personally reviewed this case. Performed By: #### P [id number] #### [facility] [address] [place] [address] SURFACE MARKERS LOW GRADE PA NELon 05-04-2021 ABNORMAL CELL POPULATION Plasma Cells Normal [facility] Comment on above: Performed By: #### L GP #### [facility] [address] [place] [address] CD10 dim Normal [facility] Comment on above: Performed By: #### L GP #### [facility] [address] [place] [address] CD19 Negative Normal [facility] Comment on above: Performed By: #### L GP #### [facility] [address] [place] [address] CD19 7 % of Lymph Normal [facility] Comment on above: Result Comment: Poly clonal [place]/Lambda=61:39 Performed By: #### L GP #### [facility] [address] [place] [address] CD20 dim Normal [facility] Comment on above: Performed By: #### L GP #### [facility] [address] [place] [address] CD38 bright Normal [facility] Comment on above: Performed By: #### L GP #### [facility] [address] [place] [address] CD45 Negative Normal [facility] Comment on above: Performed By: #### L GP #### [facility] [address] [place] [address] CD56 bright Normal [facility] Comment on above: Result Comment: Harsh tional markers: CD138: Moderate CD27: Moderate Intracellular light chain stains show kappa-restriction. Performed By: #### L GP #### [facility] [address] 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 No clonal B cell or abnormal T cell population identified. Performed By: #### L GP #### [facility] [address] [place] [address] NOTE SEE BELOW Normal [facility] Comment on above: Result Comment: The plasma cells show dim CD20 expression. The percentage of plasma cells recovered by flow cytometry may be affected by processing of the specimen and may not accurately reflect the true marrow cellularity. Correlate with separate surgical pathology report. Performed By: #### L GP #### [facility] [address] [place] [address] PERCENTAGE 1.70 % Normal [facility] Comment on above: Performed By: #### L GP #### [facility] [address] [place] [address] PHENOTYPE see below Normal [facility] Comment on above: Performed By: #### L GP #### [facility] [address] [place] [address] CD4 49 % of Lymph Normal [facility] Comment on above: Performed By: #### L GP #### [facility] [address] [place] [address] CD8 31 % of Lymph Normal [facility] Comment on above: Performed By: #### L GP #### [facility] [address] [place] [address] CELL COUNT 7.28 x10E9/L Normal [facility] Comment on above: Performed By: #### L GP #### [facility] [address] [place] [address] Granulocytes/100 WBC (Bld) 58 % Normal [facility] Comment on above: Performed By: #### L GP #### [facility] [address] [place] [address] Lymphocytes/100 WBC (Bld) 13 % Normal [facility] Comment on above: Performed By: #### L GP #### [facility] [address] [place] [address] Monocytes/100 WBC (Bld) 4 % Normal [facility] Comment on above: Performed By: #### L GP #### [facility] [address] [place] [address] NK 14 % of Lymph Normal [facility] Comment on above: Performed By: #### L GP #### [facility] [address] [place] [address] NUMBER OF CELLS COLLECTED 82,000 - 119,000 Normal [facility] Comment on above: Performed By: #### L GP #### [facility] [address] [place] [address] CBCon 04-30-2021 Erythrocyte distribution width (RBC) [Ratio] 13.0 % Normal 11.5 - 14.5 [facility] Comment on above: Performed By: #### C BC #### [address] [address] Hematocrit (Bld) [Volume fraction] 35.5 % Low 36.0 - 46.0 [facility] Comment on above: Performed By: #### C BC #### [address] [place] [address] Hemoglobin (Bld) [Mass/Vol] 11.5 g/dL Low 12.0 - 16.0 [facility] Comment on above: Performed By: #### C BC #### [address] [address] MCHC (RBC) [Mass/Vol] 32.4 g/dL Normal 32.0 - 36.0 [facility] Comment on above: Performed By: #### C BC #### [address] [address] MCV (RBC) [Entitic vol] 91 fL Normal 80 - 100 U [facility] Comment on above: Performed By: #### C BC #### [address] [address] NUCLEATED RBC 0.0 /100 WBC Normal 0.0 - 0.0 [facility] Comment on above: Performed By: #### C BC #### [address] [address] Platelets (Bld) [#/Vol] 315 10*3/uL Normal 150 - 450 [facility] Comment on above: Performed By: #### C BC #### [address] [place] [address] RBC 3.92 x10E12/L Low 4.00 - 5.20 [facility] Comment on above: Performed By: #### C BC #### [address] [place] [address] WBC (Bld) [#/Vol] 4.3 10*3/uL Low 4.4 - 11.3 [facility] Comment on above: Performed By: #### C BC #### [address] [place] [address] CT BONE MARROW BIOPSY AND PIRATIONS ONLYon 04-30-2021 CT BONE MARROW BIOPSY AND ASPIRATIONS ONLY Patient Name: LAURI READ STUDY: DIAGNOSTIC BONE MARROW BIOPSY AND ASPIRATIONS; 04/30/2021 9:42 am INDICATION: myeloid nos, multiple myeloma. COMPARISON: None. ACCESSION NUMBER(S): [id number] ORDERING CLINICIAN: NIELS GRIMES TECHNIQUE: INTERVENTIONALIST(S): Mariana Leyva MD The history and physical exam pertinent to the procedure were reviewed and no updates were made. CONSENT: The patient/patient's POA/next of kin was informed of the nature of the proposed procedure. The purposes, alternatives, risks, and benefits were explained and discussed. All questions were answered and consent was obtained. RADIATION EXPOSURE: DLP 25.5 mGy cm SEDATION: Moderate conscious IV sedation services (supervision of administration, induction, and maintenance) were provided by the physician performing the procedure with intravenous fentanyl 50 mcg and versed 1 mg for 30 minutes. The physician was assisted by an independent trained observer, an interventional radiology nurse, in the continuous monitoring of patient level of consciousness and physiologic status. MEDICATION/CONTRAST: No additional TIME OUT: A time out was performed immediately prior to procedure start with the interventional team, correctly identifying the patient name, date of , MRN, procedure, anatomy (including marking of site and side), patient position, procedure consent form, relevant laboratory and imaging test results, antibiotic administration, safety precautions, and procedure-specific equipment needs. COMPLICATIONS: No immediate adverse events identified. FINDINGS: The patient was placed in the prone position. Radiopaque markers were placed overlying the soft tissues overlying the posterior aspect of the osseous pelvis. The posterior aspect of the left ilium was chosen for access. The superficial and deep soft tissues were anesthetized using 1% lidocaine using 25 gauge and 22 gauge needles to the level of the periosteum. Then, the 11 gauge coaxial cannula from the bone marrow biopsy kit was seated in the posterior aspect of the ilium. Multiple marrow aspirations were obtained per protocol and handed directly to the marrow technologist. Then, a single marrow biopsy was obtained via the coaxial cannula. The bone marrow system was then removed in its entirety. Adequacy of the bone marrow sample was verified prior to having the sample directly to the marrow fire alarm technician. The access site was covered with sterile bandage. The patient is transferred to the recovery area in stable condition. IMPRESSION: Technically successful left ilium marrow biopsy and aspiration. I was present for and/or performed the critical portions of the procedure and immediately available throughout the entire procedure. I personally reviewed the image(s)/study and interpretation. I agree with the findings as stated. Performed and dictated at [facility]. Electronically signed by: SANDOR LEYVA MD Normal [facility] CT Diagnostic Bone Marrow Bi opsy and Aspirationson 04-30-2021 CT guidance for percutaneous biopsy of Bone Normal [facility] Work Phone: FLOW CYTOMETRY TESTon 2020 FLOW TEST ORDERED LOW GRADE PANEL Normal [facility] Comment on above: Performed By: #### F CTST #### [facility] [address] [place] [address] Laboratory - Hematology and Cell countson 04-30-2021 Granulocytes/100 WBC (Bld) 58 % [facility] Work Phone: Lymphocytes/100 WBC (Bld) 13 % [facility] Work Phone: [phone] Monocytes/100 WBC (Bld) 4 % [facility] Work Phone: Erythrocyte distribution width (RBC) [Ratio] 13.0 % See Below [facility] Work Phone: Comment on above: Reference Range: 11. 5 - 14.5 Hematocrit (Bld) [Volume fraction] 35.5 % below low threshold See Below [facility] Work Phone: Comment on above: Reference Range: 36. 0 - 46.0 Hemoglobin (Bld) [Mass/Vol] 11.5 g/dL below low threshold See Below [facility] Work Phone: Comment on above: Reference Range: 12. 0 - 16.0 MCHC (RBC) [Mass/Vol] 32.4 g/dL See Below [facility] Work Phone: Comment on above: Reference Range: 32. 0 - 36.0 MCV (RBC) [Entitic vol] 91 fL 80 - 100 [facility] Work Phone: Platelets (Bld) [#/Vol] 315 10*3/uL 150 - 450 [facility] Work Phone: RBC (Bld) [#/Vol] 3.92 {x10E12/L} below low threshold See Below [facility] Work Phone: Comment on above: Reference Range: 4.0 0 - 5.20 WBC (Bld) [#/Vol] 4.3 10*3/uL below low threshold 4.4 - 11.3 [facility] Work Phone: No Panel Informationon 04-30 [facility] Work Phone: SEE BELOW [facility] Work Phone: Comment on above: This test is a multi color, whole blood lysis assay. It was developed and its performance characteristics determined by the Department of Pathology, [facility], and has not been cleared or approved by the U.S. Food and Drug Administration. The laboratory is regulated under CLIA as qualified to perform high complexity testing. This test is used for clinical purposes. It should not be regarded as investigational or for research. Immunophenotypic analysis was performed using the following antibodies: CD45, CD71, CD13, CD200, CD14, HLADR, CD2, CD7, CD4, CD5, CD3, CD16, CD56, CD8, CD10, CD20, CD38, CD19, CD43, CD23, CD1c, CD25, CD180, CD11c, CD79b, [place], Lambda, IgD.Additional Antibodies: CD138, CD27 The plasma cells dejan w dim CD20 expression. The percentage of plasma cells recovered by flow cytometry may be affected by processing of the specimen and may not accurately reflect the true marrow cellularity.Correlate with separate surgical pathology report. Immunophenotypic fin dings consistent with plasma cell dyscrasia.No clonal B cell or abnormal T cell population identified. Genetics test res ults are available electronically in [facility] Community Record. Results will be sent on a separate report.In the [facility] go to Community record -> click on Clinical documents -> go to Genetics Studies tab for results. 7 {%_of_Lymph} [facility] Work Phone: [phone] Comment on above: PolyclonalKappa/Keenan da=61:39 14 {%_of_Lymph} [facility] Work Phone: [phone] {%_of_Lymph} [facility] Work Phone: [phone] {%_of_Lymph} [facility] Work Phone: [phone] bright [facility] Work Phone: [phone] Comment on above: Additional markers:C D138: [id number]: ModerateIntracellular light chain stains show kappa-restriction. Negative [facility] Work Phone: [phone] dim [facility] Work Phone: [phone] 1.70 % [facility] Work Phone: [phone] Plasma Cells [facility] Work Phone: [phone] 82,000 - 119,000 [facility] Work Phone: [phone] 7.28 {x10E9/L} [facility] Work Phone: [phone] Acceptable [facility] Work Phone: [phone] Comment on above: Flow cytometry resul ts should be interpreted in the context of morphology. Flow cytometry findings may be unreliable due to sampling issues, differential loss or recovery of cell populations ex vivo, or low viability. Bone Marrow [facility] Work Phone: [phone] Comment on above: [id number] RaphaelNICOLE [facility] Work Phone: [phone] Comment on above: By her/his signature above, the Pathologist listed as making the final interpretation certifies that she/he has personally reviewed this case. LOW GRADE PANEL [facility] Work Phone: [phone] 0.0 {/100_WBC} 0.0 - 0.0 [facility] Work Phone: SURFACE MARKERS LOW GRADE PA NELon 04-30-2021 METHOD SEE BELOW Normal [facility] Comment on above: Result Comment: This test is a multicolor, whole blood lysis assay. It was developed and its performance characteristics determined by the Department of Pathology, [facility], and has not been cleared or approved by the U.S. Food and Drug Administration. The laboratory is regulated under CLIA as qualified to perform high complexity testing. This test is used for clinical purposes. It should not be regarded as investigational or for research. Immunophenotypic analysis was performed using the following antibodies: CD45, CD71, CD13, CD200, CD14, HLADR, CD2, CD7, CD4, CD5, CD3, CD16, CD56, CD8, CD10, CD20, CD38, CD19, CD43, CD23, CD1c, CD25, CD180, CD11c, CD79b, [place], Lambda, IgD. Additional Antibodies: CD138, CD27 Performed By: #### L GP #### [facility] [address] [place] [address] SPECIMEN SITE Bone Marrow Normal [facility] Comment on above: Performed By: #### L GP #### [facility] [address] [place] [address] SPECIMEN VIABILITY Acceptable Normal [facility] Comment on above: Result Comment: Flow cytometry results should be interpreted in the context of morphology. Flow cytometry findings may be unreliable due to sampling issues, differential loss or recovery of cell populations ex vivo, or low viability. Performed By: #### L GP #### [facility] [address] [place] [id number] PET/CT Myeloma Initialon PET/CT Myeloma Initial Normal [facility] Work Phone: Tobacco Screening.on 021 Fall risk assessment a) [facility] falls within the last year [facility]: Tobacco use status [facility] b) No M [facility] Work Phone: Complete Blood Count + Diffe rentialon 04-08-2021 Basophils/100 WBC (Bld) 1.4 % 0.0 - 2.0 [place] [address] DO Work Phone: Erythrocyte distribution width (RBC) [Ratio] 13.6 % See Below [place] [address] DO Work Phone: Comment on above: Reference Range: 11. 5 - 14.5 Hematocrit (Bld) [Volume fraction] 34.9 % below low threshold See Below [place] [address] DO Work Phone: Comment on above: Reference Range: 36. 0 - 46.0 Hemoglobin (Bld) [Mass/Vol] 11.8 g/dL below low threshold See Below [place] [address] DO Work Phone: Comment on above: Reference Range: 12. 0 - 16.0 Lymphocytes/100 WBC (Bld) 47.9 % See Below [place] [address] DO Work Phone: Comment on above: Reference Range: 13. 0 - 44.0 MCHC (RBC) [Mass/Vol] 33.7 g/dL See Below [place] [address] DO Work Phone: Comment on above: Reference Range: 32. 0 - 36.0 MCV (RBC) [Entitic vol] 91 fL 80 - 100 M [place] [address] DO Work Phone: Monocytes/100 WBC (Bld) 15.2 % 2.0 - 10.0 M [place] [address] DO Work Phone: Neutrophils/100 WBC (Bld) 31.8 % See Below [place] [address] DO Work Phone: Comment on above: Reference Range: 40. 0 - 80.0 Platelets (Bld) [#/Vol] 378 10*3/uL 150 - 450 [facility] [address] DO Work Phone: RBC (Bld) [#/Vol] 3.85 {x10E12/L} below low threshold See Below [place] [address] DO Work Phone: Comment on above: Reference Range: 4.0 0 - 5.20 WBC (Bld) [#/Vol] 3.5 10*3/uL below low threshold 4.4 - 11.3 [place] [address] DO Work Phone: Complete Blood Count + Differential 0.00 {x10E9/L} See Below [place] [address] DO Work Phone: [phone] Comment on above: Reference Range: 0.0 0 - 0.10 Complete Blood Count + Differential 0.10 {x10E9/L} See Below [place] [address] DO Work Phone: [phone] Comment on above: Reference Range: 0.0 0 - 0.40 Complete Blood Count + Differential 0.50 {x10E9/L} See Below [place] [address] DO Work Phone: [phone] Comment on above: Reference Range: 0.0 5 - 0.80 Complete Blood Count + Differential 1.70 {x10E9/L} See Below [place] [address] DO Work Phone: Comment on above: Reference Range: 0.8 0 - 3.00 Complete Blood Count + Differential 1.10 {x10E9/L} below low threshold See Below [place] [address] DO Work Phone: Comment on above: Reference Range: 1.6 0 - 5.50 Percent differential counts (%) should be interpreted in the context of the absolute cell counts (cells/L). Complete Blood Count + Differential 3.7 % 0.0 - 6.0 [place] [address] DO Work Phone: Complete Blood Count + Differential 0.1 {/100_WBC} [facility] [[email or web address] [address] DO Work Phone: Cortisol A.M.on 04-08-2021 Cortisol AM peak specimen [Mass or moles/Vol] 11.3 ug/dL 5.0 - 20.0 [facility] [[email or web address] [address] DO Work Phone: Hemoglobin A1Con 04-08-2021 Glucose [Mass/Vol] 126 mg/dL -Nep hrolog [place] [address] DO Work Phone: HbA1c (Bld) [Mass fraction] 6.0 % Abnormal [place] [address] DO Work Phone: Comment on above: Diagnosis of Diabete s-Adults Non-Diabetic: < or = 5.6% Increased risk for developing diabetes: 5.7-6.4% Diagnostic of diabetes: > or = 6.5%. Monitoring of Diabetes Age (y) Therapeutic Goal (%) Adults: >18 <7.0 Pediatrics: 13-18 <7.5 7-12 <8.0 0- 6 7.5-8.5 [place] [employer]. Diabetes Care 33(S1), May 2009. Laboratory - Chemistry and C hemistry - challengeon 04-08-2021 Albumin [Mass/Vol] 4.5 g/dL 3.4 - 5.0 [facility] Work Phone: Albumin BCP dye [Mass/Vol] 4.1 g/dL 3.4 - 5.0 [facility] [[email or web address] [address] DO Work Phone: ALP [Catalytic activity/Vol] 54 U/L 33 - 136 [place] [address] DO Work Phone: ALT With P-5'-P [Catalytic activity/Vol] 17 U/L 7 - 45 [facility] [[email or web address] [address] DO Work Phone: [phone] Comment on above: Patients treated wit h Sulfasalazine may generate falsely decreased results for ALT. Anion gap [Moles/Vol] 12 mmol/L 10 - 20 - Ne[facility] [place] [address] DO Work Phone: [phone] AST With P-5'-P [Catalytic activity/Vol] 22 U/L 9 - 39 -Nephrolog [place] [address] DO Work Phone: [phone] Bilirubin [Mass/Vol] 0.4 mg/dL 0.0 - 1.2 -N [facility] center[facility] [place] [address] DO Work Phone: [phone] Calcium [Mass/Vol] 10.2 mg/dL 8.6 - 10.3 -Nep [place] [address] DO Work Phone: [phone] Chloride [Moles/Vol] 102 mmol/L 98 - 107 -N [place] [address] DO Work Phone: [phone] CO2 [Moles/Vol] 25 mmol/L 21 - 32 -Nephro log [place] [address] DO Work Phone: [phone] Creatinine [Mass/Vol] 0.92 mg/dL See Below [facility] [[email or web address]] [facility] [place] [address] DO Work Phone: [phone] Comment on above: Reference Range: 0.5 0 - 1.05 Glucose [Mass/Vol] 92 mg/dL 74 - 99 -[place] [address] DO Work Phone: [phone] Potassium [Moles/Vol] 3.9 mmol/L 3.5 - 5.3 - Ne[facility]rolog [place] [address] DO Work Phone: [phone] Sodium [Moles/Vol] 135 mmol/L below low threshold 136 - 145 -Nephrolog [place] [address] DO Work Phone: [phone] Urea nitrogen [Mass/Vol] 30 mg/dL above high threshold 6 - 23 [facility] [address] DO Work Phone: [phone] Laboratory - Serology - non- microon 04-08-2021 Nuclear Ab Hep2 substrate Ql (S) Negative NEGATIVE [facility] Work Phone: Comment on above: The Antinuclear Anti body (RENATA) test was performed using indirect immunofluorescence assay with HEp-2 cells slide. Lipid Panelon 04-08-2021 Cholesterol [Mass/Vol] 187 mg/dL 0 - 199 [facility] [address] [facility] Work Phone: [phone] Comment on above: . AGE DESIRABLE BORD SANTI HIGH HIGH 0-19 Y 0 - 169 170 - 199 >/= 200 20-24 Y 0 - 189 190 - 224 >/= 225 >24 Y 0 - 199 200 - 239 >/= 240 All ranges are based on fasting samples. Specific therapeutic targets will vary based on patient-specific cardiac risk.. Pediatric guidelines reference:Pediatrics 2011, 128(S5). Adult guidelines reference: NCEP ATPIII Guidelines, LINDSEY 2001, 258:2486-97. Venipuncture immediately after or during the administration of Metamizole may lead to falsely low results. Testing should be performed immediately prior to Metamizole dosing. Cholesterol in HDL [Mass/Vol] 60.0 mg/dL [facility] [[email or web address]][place] [address] DO Work Phone: [phone] Comment on above: . AGE VERY LOW LOW N ORMAL HIGH 0-19 Y < 35 < 40 40-45 ---- 20-24 Y ---- < 40 >45 ---- >24 Y ---- < 40 40-60 >60. Cholesterol in LDL [Mass/Vol] 110 mg/dL above high threshold 0 - 99 [facility] [[email or web address] [address] DO Work Phone: [phone] Comment on above: . NEAR BORD AGE EMILIA RABLE OPTIMAL HIGH HIGH VERY HIGH 0-19 Y 0 - 109 --- 110-129 >/= 130 ---- 20-24 Y 0 - 119 --- 120-159 >/= 160 ---- >24 Y 0 - 99 100-129 130-159 160-189 >/=190. Cholesterol.total/Kait sterol in HDL [Mass ratio] 3.1 {ratio} [place] [address] DO Work Phone: [phone] Comment on above: REF VALUESDESIRABLE < 3.4HIGH RISK > 5.0 Triglyceride [Mass/Vol] 84 mg/dL 0 - 149 M -[place] [address] DO Work Phone: [phone] Comment on above: . AGE DESIRABLE BORD SANTI HIGH HIGH VERY HIGH 0 D-90 D 19 - 174 ---- ---- ----91 D- 9 Y 0 - 74 75 - 99 >/= 100 ---- 10-19 Y 0 - 89 90 - 129 >/= 130 ---- 20-24 Y 0 - 114 115 - 149 >/= 150 ---- >24 Y 0 - 149 150 - 199 200- 499 >/= 500. Venipuncture immediately after or during the administration of Metamizole may lead to falsely low results. Testing should be performed immediately prior to Metamizole dosing. Lipid Panel 17 mg/dL 0 - 40 [place] [address] DO Work Phone: [phone] No Panel Informationon 04-08 73 {mL/min/1.73m2} >60 [facility] [place] [address] DO Work Phone: [phone] Comment on above: CALCULATIONS OF GILBERT MATED GFR ARE PERFORMED USING THE MDRD STUDY EQUATION FOR THE IDMS-TRACEABLE CREATININE METHODS. CLIN CHEM 2007;53:766-72 60 {mL/min/1.73m2} Abnormal >60 -[place] [address] DO Work Phone: ABNORMAL [facility] [employer] Work Phone: Comment on above: Monoclonal IgG kappa in the gamma region at 3.1 g/dL.Suggest further evaluation for the diagnosis of plasma cell dyscrasia. Aberrant band detect ed. See immunofixation. 3.1 g/dL Abnormal See Below [facility] [employer] Work Phone: Comment on above: Reference Range: Not Detected 3.7 g/dL above high threshold 0.5 - 1.4 [facility] [employer] Work Phone: 0.9 g/dL 0.5 - 1.2 [facility] [employer] Work Phone: 1.1 g/dL 0.4 - 1.1 [facility] [employer] Work Phone: 0.3 g/dL 0.2 - 0.6 [facility] [employer] Work Phone: Osmolality, Serumon 04-08-20 21 Osmolality [Osmolality] 301 {mOsm/kg_H2O} above high threshold 280 - 300 [facility] [[email or web address] [address] DO Work Phone: Osmolality, Urine Spoton Osmolality (U) [Osmolality] 630 mosm/kg 200 - 1200 [place] [address] DO Work Phone: PROTEIN ELECTROPHORESIS,SERU 04-08-2021 Protein [Mass/Vol] 10.4 g/dL above high threshold 6.4 - 8.2 [place] [address] DO Work Phone: Path Review SPEon 04-08-2021 Path Review BRIDGER HERNANDEZ [facility] [employer] Work Phone: Comment on above: By her/his signature above, the Pathologist listed as making the final interpretation certifies that she/he has personally reviewed this case. Rheumatoid Factor, Serum or Plasmaon 04-08-2021 Rheumatoid factor Nephelometry Qn (S) <10 0 - 15 [email or web address] Work Phone: Uric Acid, Serumon 1 Urate [Mass/Vol] 12.3 mg/dL above high threshold 2.3 - 6.7 -Nephrolog [place] [address] DO Work Phone: Comment on above: Venipuncture immedia tely after or during the administration of Metamizole may lead to falsely low results. Testing should be performed immediately prior to Metamizole dosing. Urinalysison 04-08-2021 Color (U) Yellow See Below -Nephrolog [place] [address] DO Work Phone: Comment on above: Reference Range: STR AW,YELLOW Glucose Ql (U) Negative NEGATIVE MP-Nephrol [facility] [place] [address] DO Work Phone: Ketones Ql (U) Negative NEGATIVE MP-[facility]rol [facility] [place] [address] DO Work Phone: Leukocyte esterase Test strip Ql (U) SMALL(1+) Abnormal NEGATIVE -Nephrolog [place] [address] DO Work Phone: pH (U) 5.0 [pH] 5.0 - 8.0 MP-Nephrolog [place] [address] DO Work Phone: Protein (U) [Mass/Vol] 30(1+) Abnormal NEGATIVE MP -Nephrolog [place] [address] DO Work Phone: RBC (U) [#/Vol] Negative NEGATIVE MP-Nephro log [place] [address] DO Work Phone: Specific gravity (U) [Rel density] 1.018 1 See Below [facility] [[email or web address]]Nephrolog [place] [address] DO Work Phone: Comment on above: Reference Range: 1.0 05 - 1.035 Urinalysis Negative NEGATIVE -Nephrolog [place] [address] DO Work Phone: Urinalysis <2.0 0.0 - 1.9 [facility] [[email or web address]][place] [address] DO Work Phone: [phone] Urinalysis HAZY CLEAR [place] [address] DO Work Phone: [phone] Urinalysis, Microscopicon Hyaline casts LM Ql (Urine sed) 1+ Abnormal [place] [address] DO Work Phone: [phone] Urinalysis, Microscopic 1 {/HPF} M [place] [address] DO Work Phone: [phone] Urinalysis, Microscopic 7 {/HPF} M [place] [address] DO Work Phone: [phone] Urinalysis, Microscopic 2 {/HPF} 0-5 M [place] [address] DO Work Phone: [phone] Urinalysis, Microscopic 4 {/HPF} 0-5 M [place] [address] DO Work Phone: [phone] Vitamin D 25-Hydroxyon 04-08 25-hydroxyvitamin D3 [Mass/Vol] 61 ng/mL [place] [address] DO Work Phone: [phone] Comment on above: .DEFICIENCY: < 20 NG /MLINSUFFICIENCY: 20-29 NG/MLSUFFICIENCY: 30-100 NG/MLTHIS ASSAY ACCURATELY QUANTIFIES THE SUM OFVITAMIN D3, 25-HYDROXY AND VIT D2,25-HYDROXY. Tobacco Screening.on 021 Fall risk assessment a) No falls within the last year [place] [address] DO Work Phone: [phone] Tobacco use status CPHS b) No M [place] [address] DO Work Phone: [phone] Laboratory - Chemistry and C hemistry - challengeon 03-13-2021 Anion gap [Moles/Vol] 14 mmol/L 10 - MP- Nephrolog [place] [address] DO Work Phone: [phone] Calcium [Mass/Vol] 10.1 mg/dL 8.6 - 10.3 -Nep [place] [address] DO Work Phone: [phone] Chloride [Moles/Vol] 96 mmol/L below low threshold 98 - 107 -Nephrolog [place] [address] DO Work Phone: [phone] CO2 [Moles/Vol] 24 mmol/L 21 - 32 -Nephro log [place] [address] DO Work Phone: [phone] Creatinine [Mass/Vol] 0.89 mg/dL See Below [facility] [[email or web address]] Nephrolog [place] [address] DO Work Phone: [phone] Comment on above: Reference Range: 0.5 0 - 1.05 Glucose [Mass/Vol] 80 mg/dL 74 - 99 [place] [address] DO Work Phone: [phone] Potassium [Moles/Vol] 4.6 mmol/L 3.5 - 5.3 [facility] [[email or web address]] Nephrolog [place] [address] DO Work Phone: Sodium [Moles/Vol] 129 mmol/L below low threshold 136 - 145 [facility] [[email or web address]]Neph[place] [address] DO Work Phone: Urea nitrogen [Mass/Vol] 22 mg/dL 6 - 23 [facility] [[email or web address]][place]ph[place] [address] DO Work Phone: No Panel Informationon 03-13 >60 >60 [facility] [[email or web address]]Nephrolog [place] [address] DO Work Phone: Comment on above: CALCULATIONS OF GILBERT MATED GFR ARE PERFORMED USING THE MDRD STUDY EQUATION FOR THE IDMS-TRACEABLE CREATININE METHODS. CLIN CHEM 2007;53:766-72 IO Occult Blood, Fecalon Hemoglobin.gastrointest inal spec 1 Ql (Stl) Negative [facility] [employer] Work Phone: Tobacco Screening.on 021 Fall risk assessment a) No falls within the last year [facility] [employer] Work Phone: Tobacco use status CPHS b) No M [facility] [employer] Work Phone: ALT - Alanine Aminotransfera se, Serumon 01-07-2021 ALT With P-5'-P [Catalytic activity/Vol] 12 U/L 7 - 45 [facility] [employer] Work Phone: Comment on above: Patients treated wit h Sulfasalazine may generate falsely decreased results for ALT. Laboratory - Chemistry and C hemistry - challengeon 01-07-2021 Anion gap [Moles/Vol] 9 mmol/L below low threshold 10 - 20 [facility] [employer] Work Phone: AST With P-5'-P [Catalytic activity/Vol] 16 U/L 9 - 39 [facility] [employer] Work Phone: Calcium [Mass/Vol] 9.7 mg/dL 8.6 - 10.3 [facility] [employer] Work Phone: Chloride [Moles/Vol] 103 mmol/L 98 - 107 [facility] [employer] Work Phone: CO2 [Moles/Vol] 28 mmol/L 21 - 32 [facility] [employer] Work Phone: Creatinine [Mass/Vol] 1.10 mg/dL above high threshold See Below [facility] [employer] Phone: Comment on above: Reference Range: 0.5 0 - 1.05 Glucose [Mass/Vol] 108 mg/dL above high threshold 74 - 99 [facility] [employer] Work Phone: Potassium [Moles/Vol] 4.5 mmol/L 3.5 - 5.3 [facility] [employer] Work Phone: Sodium [Moles/Vol] 135 mmol/L below low threshold 136 - 145 [facility] Urea nitrogen [Mass/Vol] 31 mg/dL above high threshold 6 - 23 [facility]: Lipid Panelon 01-07-2021 Cholesterol [Mass/Vol] 171 mg/dL 0 - 199 [facility] Comment on above: . AGE DESIRABLE BORD SANTI HIGH HIGH 0-19 Y 0 - 169 170 - 199 >/= 200 20-24 Y 0 - 189 190 - 224 >/= 225 >24 Y 0 - 199 200 - 239 >/= 240 All ranges are based on fasting samples. Specific therapeutic targets will vary based on patient-specific cardiac risk.. Pediatric guidelines reference:Pediatrics 2011, 128(S5). Adult guidelines reference: NCEP ATPIII Guidelines, LINDSEY 2001, 258:2486-97. Venipuncture immediately after or during the administration of Metamizole may lead to falsely low results. Testing should be performed immediately prior to Metamizole dosing. Cholesterol in HDL [Mass/Vol] 49.0 mg/dL [facility] [employer] Phone: Comment on above: . AGE VERY LOW LOW N ORMAL HIGH 0-19 Y < 35 < 40 40-45 ---- 20-24 Y ---- < 40 >45 ---- >24 Y ---- < 40 40-60 >60. Cholesterol in LDL [Mass/Vol] 106 mg/dL above high threshold 0 - 99 [facility]: Comment on above: . NEAR BORD AGE EMILIA RABLE OPTIMAL HIGH HIGH VERY HIGH 0-19 Y 0 - 109 --- 110-129 >/= 130 ---- 20-24 Y 0 - 119 --- 120-159 >/= 160 ---- >24 Y 0 - 99 100-129 130-159 160-189 >/=190. Cholesterol.total/Kait sterol in HDL [Mass ratio] 3.5 {ratio} [employer] Phone: Comment on above: REF VALUESDESIRABLE < 3.4HIGH RISK > 5.0 Triglyceride [Mass/Vol] 80 mg/dL 0 - 149 M [employer] Phone: Comment on above: . AGE DESIRABLE BORD SANTI HIGH HIGH VERY HIGH 0 D-90 D 19 - 174 ---- ---- ----91 D- 9 Y 0 - 74 75 - 99 >/= 100 ---- 10-19 Y 0 - 89 90 - 129 >/= 130 ---- 20-24 Y 0 - 114 115 - 149 >/= 150 ---- >24 Y 0 - 149 150 - 199 200- 499 >/= 500. Venipuncture immediately after or during the administration of Metamizole may lead to falsely low results. Testing should be performed immediately prior to Metamizole dosing. Lipid Panel 16 mg/dL 0 - 40 [employer] Phone: No Panel Informationon 01-07 59 {mL/min/1.73m2} Abnormal >60 [employer] Phone: Comment on above: CALCULATIONS OF GILBERT MATED GFR ARE PERFORMED USING THE MDRD STUDY EQUATION FOR THE IDMS-TRACEABLE CREATININE METHODS. CLIN CHEM 2007;53:766-72 49 {mL/min/1.73m2} Abnormal >60 [employer] Phone: Lipid Panelon 06-13-2020 Cholesterol [Mass/Vol] 254 mg/dL above hig h threshold 0 - 199 [employer] Phone: Comment on above: . AGE DESIRABLE BORD SANTI HIGH HIGH 0-19 Y 0 - 169 170 - 199 >/= 200 20-24 Y 0 - 189 190 - 224 >/= 225 >24 Y 0 - 199 200 - 239 >/= 240 All ranges are based on fasting samples. Specific therapeutic targets will vary based on patient-specific cardiac risk.. Pediatric guidelines reference:Pediatrics 2011, 128(S5). Adult guidelines reference: NCEP ATPIII Guidelines, LINDSEY 2001, 258:2486-97. Venipuncture immediately after or during the administration of Metamizole may lead to falsely low results. Testing should be performed immediately prior to Metamizole dosing. Cholesterol in HDL [Mass/Vol] 50.0 mg/dL [employer] Phone: Comment on above: . AGE VERY LOW LOW N ORMAL HIGH 0-19 Y < 35 < 40 40-45 ---- 20-24 Y ---- < 40 >45 ---- >24 Y ---- < 40 40-60 >60. Cholesterol in LDL [Mass/Vol] 167 mg/dL above high threshold 0 - 99 [employer] Phone: Comment on above: . NEAR BORD AGE EMILIA RABLE OPTIMAL HIGH HIGH VERY HIGH 0-19 Y 0 - 109 --- 110-129 >/= 130 ---- 20-24 Y 0 - 119 --- 120-159 >/= 160 ---- >24 Y 0 - 99 100-129 130-159 160-189 >/=190. Cholesterol.total/Kait sterol in HDL [Mass ratio] 5.1 {ratio} Abnormal [employer] Phone: Comment on above: REF VALUESDESIRABLE < 3.4HIGH RISK > 5.0 Triglyceride [Mass/Vol] 186 mg/dL above hi gh threshold 0 - 149 [employer] Phone: Comment on above: . AGE DESIRABLE BORD SANTI HIGH HIGH VERY HIGH 0 D-90 D 19 - 174 ---- ---- ----91 D- 9 Y 0 - 74 75 - 99 >/= 100 ---- 10-19 Y 0 - 89 90 - 129 >/= 130 ---- 20-24 Y 0 - 114 115 - 149 >/= 150 ---- >24 Y 0 - 149 150 - 199 200- 499 >/= 500. Venipuncture immediately after or during the administration of Metamizole may lead to falsely low results. Testing should be performed immediately prior to Metamizole dosing. Lipid Panel 37 mg/dL 0 - 40 [facility] Work Phone: Metabolic Panelon 06-13-2020 Anion gap [Moles/Vol] Canceled [facility] Work Phone: Comment on above: TEST BASIC METABOLIC PANEL WAS CANCELLED, 06/13/2020 08:29 [employer]. Calcium [Mass/Vol] Canceled [facility] Work Phone: Comment on above: TEST BASIC METABOLIC PANEL WAS CANCELLED, 06/13/2020 08:29 [employer]. Chloride [Moles/Vol] Canceled [facility] Work Phone: Comment on above: TEST BASIC METABOLIC PANEL WAS CANCELLED, 06/13/2020 08:29 [employer]placate. CO2 [Moles/Vol] Canceled [facility] Work Phone: Comment on above: TEST BASIC METABOLIC PANEL WAS CANCELLED, 06/13/2020 08:29 [employer]plac[employer]. Creatinine [Mass/Vol] Canceled [facility] Work Phone: Comment on above: TEST BASIC METABOLIC PANEL WAS CANCELLED, 06/13/2020 08:29 [employer]plac[employer]. Glucose [Mass/Vol] Canceled [facility] Work Phone: Comment on above: TEST BASIC METABOLIC PANEL WAS CANCELLED, 06/13/2020 08:29 [employer]. Potassium [Moles/Vol] Canceled [facility] Work Phone: Comment on above: TEST BASIC METABOLIC PANEL WAS CANCELLED, 06/13/2020 08:29 [employer]. Sodium [Moles/Vol] Canceled [facility] Work Phone: Comment on above: TEST BASIC METABOLIC PANEL WAS CANCELLED, 06/13/2020 08:29 [employer]. Urea nitrogen [Mass/Vol] Canceled [facility] [employer] Work Phone: Comment on above: TEST BASIC METABOLIC PANEL WAS CANCELLED, 06/13/2020 08:29 [employer]. Anion gap [Moles/Vol] 8 mmol/L below low threshold 10 - 20 [facility] [employer] Work Phone: Calcium [Mass/Vol] 9.5 mg/dL 8.6 - 10.3 [facility] [employer] Work Phone: Chloride [Moles/Vol] 103 mmol/L 98 - 107 [facility] [employer] Work Phone: CO2 [Moles/Vol] 29 mmol/L 21 - 32 [facility] [employer] Work Phone: Creatinine [Mass/Vol] 0.74 mg/dL See Below [facility] [employer] Work Phone: Comment on above: Reference Range: 0.5 0 - 1.05 Glucose [Mass/Vol] 97 mg/dL 74 - 99 [facility] [employer] Work Phone: Potassium [Moles/Vol] 4.2 mmol/L 3.5 - 5.3 [facility] [employer] Work Phone: Sodium [Moles/Vol] 136 mmol/L 136 - 145 [facility] [employer] Work Phone: Urea nitrogen [Mass/Vol] 27 mg/dL above high threshold 6 - 23 [facility] [employer] Work Phone: Otheron 06-13-2020 Canceled [facility] [employer] Phone: Comment on above: CALCULATIONS OF GILBERT MATED GFR ARE PERFORMED USING THE MDRD STUDY EQUATION FOR THE IDMS-TRACEABLE CREATININE METHODS. CLIN CHEM 2007;53:766-72 TEST BASIC METABOLIC PANEL WAS CANCELLED, 06/13/2020 08:29 duplacate. >60 >60 [facility] Work Phone: Comment on above: CALCULATIONS OF GILBERT MATED GFR ARE PERFORMED USING THE MDRD STUDY EQUATION FOR THE IDMS-TRACEABLE CREATININE METHODS. CLIN CHEM 2007;53:766-72 BMPon 11-28-2018 Anion gap [Moles/Vol] 10 mmol/L Normal 10-20 [facility] Comment on above: Performed By: #### 2 [id number] #### [employer]AMES [employer] [address] [place] [address] Calcium [Mass/Vol] 9.6 mg/dL Normal 8.6-10.3 [facility] Comment on above: Performed By: #### 2 [id number] #### [employer] [address] [place] [address] Chloride [Moles/Vol] 104 mmol/L Normal 98-107 [facility] Comment on above: Performed By: #### 2 [id number] #### [employer] [address] [place] [address] CO2 [Moles/Vol] 29.0 mmol/L Normal 21.0-32.0 [facility] Comment on above: Performed By: #### 2 [id number] #### [employer] [address] [place] [address] Creatinine [Mass/Vol] 0.6 mg/dL Normal 0.5-1.1 [facility] Comment on above: Performed By: #### 2 [id number] #### [employer] [address] [place] [address]143 Glucose [Mass/Vol] 103 mg/dL High 70-99 [facility] Comment on above: Performed By: #### 2 [id number] #### [employer] [address] [place] [address]373 Potassium [Moles/Vol] 4.2 mmol/L Normal 3.5-5.3 [facility] Comment on above: Performed By: #### 2 [id number] #### [employer] [address] [place] [address]01 Sodium [Moles/Vol] 139 mmol/L Normal 136-145 [facility] Comment on above: Performed By: #### 2 [id number] #### [employer] [address] [place], [place] [id number] Urea nitrogen [Mass/Vol] 16 mg/dL Normal 6-23 [facility] Comment on above: Performed By: #### 2 [id number] #### [employer] [address] [place], [place] [id number] Urea nitrogen/Creatinine [Mass ratio] 26.7 ratio Normal 5.4-30.0 [facility] Comment on above: Performed By: #### 2 [id number] #### [employer] [address] [place], [place] [id number] 11-28-2018 HbA1c (Bld) [Mass fraction] 5.7 % Normal 4.0-6.3 [facility] Comment on above: Performed By: #### 3 [id number] #### JAMES Chemistry Manual Subsection [address] [place] [address] eGFRon 11-28-2018 GFR/1.73 sq M predicted among non-blacks MDRD (S/P/Bld) [Vol rate/Area] mL/min/{1.73_m2} Normal [facility] Comment on above: Order Comment: Order added by Discern Expert. Performed By: #### 1 [id number] #### JAMES [employer] [address] [place], [place] [id number] CT Coronary Artery Calcium S core - SCREEon 05-26-2018 Calcium [Mass/Vol] Exam Date/Time: 05/26/2018 10:12 EST Reason for Exam: SCREENING FOR HEART DISEASE HTN HYPERTRIGLYCERIDEMIA ESSENTIAL;Screening Report STUDY: CT Coronary Artery Calcium Score - SCREE; 05/26/2018 10:12 am INDICATION: Screening. COMPARISON: None. ACCESSION NUMBER(S): [id number] ORDERING CLINICIAN: Thelma Frazier TECHNIQUE: Using prospective ECG gating, CT scan of the coronary arteries was performed without intravenous contrast. Coronary calcium scoring was performed according to the method of Agatston. FINDINGS: The score and distribution of calcium in the coronary arteries is as follows: LM 0, LAD 71,28 mm2 LCx 54,15 mm2 RCA 31,17 mm2 Total 156 The visualized mid/lower ascending thoracic aorta measures 4.0 cm in diameter. Scattered atherosclerotic calcifications are seen throughout the descending thoracic aorta. The visualized descending thoracic aorta is within normal limits for course and caliber. The heart is within normal limits for size. No pericardial effusion is present. No gross mediastinal lymphadenopathy is identified. There is no focal infiltrate, pleural effusion or pneumothorax identified. No discrete pulmonary nodules or masses are seen within the visualized lungs. IMPRESSION: 1. Coronary artery calcium score of 156, which places the patient in the intermediate risk category, as below. Coronary artery calcium scoring may be helpful in predicting the risk for future coronary heart disease events. According to the [employer] Clinical Expert Consensus Task Force, such testing provides important prognostic information in patients with Exam Date/Time: 05/26/2018 10:12 EST Report more than one coronary heart disease risk factor. The coronary artery calcium score correlates with the annual risk of a non-fatal myocardial infarction or coronary heart disease . Coronary artery score Annual Risk 0-99 0.4% 100-399 1.3% >400 2.4% These three breakpoints correspond to lower, intermediate and high risk states for future coronary events. Such information should be used, along with appropriate clinical judgment, to make decisions regarding the intensity of risk factor management strategies to treat blood lipids and to modify other non-lipid coronary risk factors. Reference: Ashby P et al. Circulation. 2007; 115:402-426 FINAL REPORT Dictated: 05/26/2018 10:47 am Hung Garcia MD Signed (Electronic Signature): 05/26/2018 10:47 am Signed by: Hung Garcia MD Technologist: MM Normal [facility] BMPon 05-01-2018 Anion gap [Moles/Vol] 10 mmol/L Normal 10-20 [facility] Comment on above: Performed By: #### 2 [id number] #### JAMES [employer] [address] [place] [address] Calcium [Mass/Vol] 9.3 mg/dL Normal 8.6-10.3 [facility] Comment on above: Performed By: #### 2 [id number] #### JAMES [employer] [address] [place] [address] Chloride [Moles/Vol] 105 mmol/L Normal 98-107 [facility] Comment on above: Performed By: #### 2 [id number] #### JAMES [employer] [address] [place] [address] CO2 [Moles/Vol] 29.0 mmol/L Normal 21.0-32.0 [facility] Comment on above: Performed By: #### 2 [id number] #### [employer] [address] [place] [address] Creatinine [Mass/Vol] 0.6 mg/dL Normal 0.5-1.1 [facility] Comment on above: Performed By: #### 2 [id number] #### JAMES [employer] [address] [place] [address] Glucose [Mass/Vol] 80 mg/dL Normal 70-99 [facility] Comment on above: Performed By: #### 2 [id number] #### JAMES [employer] [address] [place] [address] Potassium [Moles/Vol] 4.0 mmol/L Normal 3.5-5.3 [facility] Comment on above: Performed By: #### 2 [id number] #### JAMES [employer] [address] [place] [address] 25619 Sodium [Moles/Vol] 140 mmol/L Normal 136-145 [facility] Comment on above: Performed By: #### 2 [id number] #### [employer]AMES [employer] [address] [place] [address] 18445 Urea nitrogen [Mass/Vol] 15 mg/dL Normal 6-23 [facility] Comment on above: Performed By: #### 2 [id number] #### JAMES [employer] [facility] [place] [address] Urea nitrogen/Creatinine [Mass ratio] 25.0 ratio Normal 5.4-30.0 [facility] Comment on above: Performed By: #### 2 [id number] #### JAMES [employer] [address] [place] [address] [id number] 05-01-2018 HbA1c (Bld) [Mass fraction] 5.6 % Normal 4.0-6.3 [facility] Comment on above: Performed By: #### 3 [id number] #### JAMES Chemistry Manual Subsection [address] [place] [address] Lipid Profileon 05-01-2018 Cholesterol [Mass/Vol] 322 mg/dL High 0-199 [facility] Comment on above: Performed By: #### 3 [id number] #### JAMES [employer] [address] [place] [address] Cholesterol in HDL [Mass/Vol] 70 mg/dL High 40-60 [facility] Comment on above: Performed By: #### 3 [id number] #### [employer] [address] [place] [address] Cholesterol in LDL [Mass/Vol] 211 mg/dL High 0-130 [facility] Comment on above: Performed By: #### 3 [id number] #### [employer]AMES [employer] [address] [place] [address] Cholesterol in VLDL [Mass/Vol] 41 mg/dL High 0-40 [facility] Comment on above: Performed By: #### 3 [id number] #### JAMES [employer] [facility] [place] [address] Triglyceride [Mass/Vol] 205 mg/dL High 0-149 [facility] Comment on above: Result Comment: AGE DESIRABLE BORDERLINE HIGH 91 D - 9 Y 0 - 74 75 - 99 > 100 10 - 19 Y 0 - 89 90 - 129 > 130 20 - 24 Y 0 - 114 115 - 149 > 150 > 25 0 - 149 150 - 199 200 - 499 Performed By: #### 3 [id number] #### JAMES [employer] [facility] [place] [address] eGFRon 05-01-2018 GFR/1.73 sq M predicted among non-blacks MDRD (S/P/Bld) [Vol rate/Area] mL/min/{1.73_m2} Normal [facility] Comment on above: Order Comment: Order added by Discern Expert. Performed By: #### 1 [id number] #### JAMES [employer] [facility] [place] [address] Vital Signs Date Time Vital Sign Value Performing Clinician Facility 04-02-2025 09:04-0500 Body mass index (BMI) [Ratio] 32.02 kg/m2 Robina Pendleton MD Work Phone: [facility] 04-02-2025 09:04-0500 Body weight 67.13 kg Robina Pendleton MD Work Phone: [facility] 03-11-2025 14:46-0400 Body height 144.8 cm Thelma Roselle DO Work Phone: [facility] 03-11-2025 14:46-0400 Body mass index (BMI) [Ratio] 32.41 kg/m2 Thelma Roselle DO Work Phone: [facility] 03-11-2025 14:46-0400 Body weight 67.95 kg Thelma Roselle DO Work Phone: [facility] 03-11-2025 14:46-0400 Diastolic blood pressure 78 mm[Hg] Thelma Roselle DO Work Phone: [facility] 03-11-2025 14:46-0400 Heart rate 94 /min Thelma Roselle DO Work Phone: [facility] 03-11-2025 14:46-0400 SaO2% (BldA) [Mass fraction] 96 % Thelma Roselle DO Work Phone: [facility] 03-11-2025 14:46-0400 Systolic blood pressure 128 mm[Hg] Thelma Roselle DO Work Phone: [facility] 02-19-2025 10:37-0400 Body height 144.[address] Thelma Frazier MD Work Phone: [facility] 02-19-2025 10:37-0400 Body mass index (BMI) [Ratio] 31.8 kg/m2 Dr. Thelma Frazier MD Work Phone: [facility] 02-19-2025 10:37-0400 Body temperature 97.9 [degF] Dr. Thelma Frazier MD Work Phone: [facility] 02-19-2025 10:37-0400 Body weight 66.[address] Thelma Frazier MD Work Phone: [facility] 02-19-2025 10:37-0400 Diastolic blood pressure 70 mm[Hg] Dr. Thelma Frazier MD Work Phone: [facility] 02-19-2025 10:37-0400 Heart rate 60 /min Dr. Thelma Frazier MD Work Phone: [facility] 02-19-2025 10:37-0400 Respiratory rate 18 /min Dr. Thelma Frazier MD Work Phone: [facility] 02-19-2025 10:37-0400 SaO2% (BldA) [Mass fraction] 96 % Dr. Thelma Frazier MD Work Phone: [facility] 02-19-2025 10:37-0400 Systolic blood pressure 142 mm[Hg] Dr. Thelma Frazier MD Work Phone: [facility] 02-14-2025 08:12-0400 Body height 144.8 cm Thelma Roselle DO Work Phone: [facility] 02-14-2025 08:12-0400 Body mass index (BMI) [Ratio] 32.04 kg/m2 Thelma Roselle DO Work Phone: [phone] [place] [address] 02-14-2025 08:12-0400 Body weight 67.18 kg Thelma Roselle DO Work Phone: [phone] [place] [address] 02-14-2025 08:12-0400 Diastolic blood pressure 72 mm[Hg] Thelma Roselle DO Work Phone: [facility] [facility] 02-14-2025 08:12-0400 Heart rate 66 /min Thelma Roselle DO Work Phone: [facility] 02-14-2025 08:12-0400 SaO2% (BldA) [Mass fraction] 93 % Thelma Roselle DO Work Phone: [facility] 02-14-2025 08:12-0400 Systolic blood pressure 132 mm[Hg] Thelma Roselle DO Work Phone: 2(172)282-664391 [place] [address] 01-31-2025 07:02-0400 Body height 144.8 cm Thelma Roselle DO Work Phone: [facility] 01-31-2025 07:02-0400 Body mass index (BMI) [Ratio] 32.17 kg/m2 Thelma Roselle DO Work Phone: [facility] 01-31-2025 07:02-0400 Body weight 67.45 kg Thelma Roselle DO Work Phone: [facility] 01-31-2025 07:02-0400 Diastolic blood pressure 72 mm[Hg] Thelma Roselle DO Work Phone: [facility] 01-31-2025 07:02-0400 Heart rate 77 /min Thelma Roselle DO Work Phone: [facility] 01-31-2025 07:02-0400 SaO2% (BldA) [Mass fraction] 99 % Thelma Roselle DO Work Phone: [facility] 01-31-2025 07:02-0400 Systolic blood pressure 138 mm[Hg] Thelma Roselle DO Work Phone: [facility] 01-22-2025 15:14-0400 Body height 144.[address] Thelma Frazier MD Work Phone: [facility] 01-22-2025 15:14-0400 Body mass index (BMI) [Ratio] 31.8 kg/m2 Dr. Thelma Frazier MD Work Phone: [facility] 01-22-2025 15:14-0400 Body temperature 97.4 [degF] Dr. Thelma Frazier MD Work Phone: [facility] 01-22-2025 15:14-0400 Body weight 66.[address] Thelma Frazier MD Work Phone: [facility] 01-22-2025 15:14-0400 Diastolic blood pressure 72 mm[Hg] Dr. Thelma Frazier MD Work Phone: [facility] 01-22-2025 15:14-0400 Heart rate 81 /min Dr. Thelma Frazier MD Work Phone: 6(834)325-195440 [place] [address] 01-22-2025 15:14-0400 Respiratory rate 18 /min Dr. Thelma Frazier MD Work Phone: 5(420)531-653599 [place] [address] 01-22-2025 15:14-0400 SaO2% (BldA) [Mass fraction] 97 % Dr. Thelma Frazier MD Work Phone: 9(044)329-575340 [place] [address] 01-22-2025 15:14-0400 Systolic blood pressure 123 mm[Hg] Dr. Thelma Frazier MD Work Phone: 4(387)531-489099 [place] [address] 12-25-2024 10:32-0400 Body height 144.[address] Thelma Frazier MD Work Phone: 7(955)348-468999 [place] [address] 12-25-2024 10:32-0400 Body mass index (BMI) [Ratio] 32.3 kg/m2 Dr. Thelma Frazier MD Work Phone: 2(049)973-046599 [place] [address] 12-25-2024 10:32-0400 Body temperature 98.4 [degF] Dr. Thelma Frazier MD Work Phone: 9(798)738-123899 [place] [address] 12-25-2024 10:32-0400 Body weight 67.[address] Thelma Frazier MD Work Phone: 0(424)016-086899 [place] [address] 12-25-2024 10:32-0400 Diastolic blood pressure 80 mm[Hg] Dr. Thelma Frazier MD Work Phone: 4(597)617-902499 [place] [address] 12-25-2024 10:32-0400 Heart rate 56 /min Dr. Thelma Frazier MD Work Phone: 7(815)689-872199 [place] [address] 12-25-2024 10:32-0400 Respiratory rate 16 /min Dr. Thelma Frazier MD Work Phone: 1(348)591-652499 [place] [address] 12-25-2024 10:32-0400 SaO2% (BldA) [Mass fraction] 97 % Dr. Thelma Frazier MD Work Phone: 7(822)910-947240 [place] [address] 12-25-2024 10:32-0400 Systolic blood pressure 160 mm[Hg] Dr. Thelma Frazier MD Work Phone: [facility] 12-10-2024 10:29-0400 Body height 144.8 cm Paulo Barakat Jr., MD, PhD Work Phone: [facility] 12-10-2024 10:29-0400 Body mass index (BMI) [Ratio] 32.33 kg/m2 Paulo Barakat Jr., MD, PhD Work Phone: 3(554)238-382685 [place] [address] 12-10-2024 10:29-0400 Body temperature 97.3 [degF] Paulo Barakat Jr., MD, PhD Work Phone: 8(642)583-889885 [place] [address] 12-10-2024 10:29-0400 Body weight 67.77 kg Paulo Barakat Jr., MD, PhD Work Phone: 4(044)968-623385 [place] [address] 12-10-2024 10:29-0400 Diastolic blood pressure 65 mm[Hg] Paulo Barakat Jr., MD, PhD Work Phone: 3(974)231-074385 [place] [address] 12-10-2024 10:29-0400 Heart rate 60 /min Paulo Barakat Jr., MD, PhD Work Phone: 3(620)566-125285 [place] [address] 12-10-2024 10:29-0400 Respiratory rate 16 /min Paulo Barakat Jr., MD, PhD Work Phone: 8(459)612-127185 [place] [address] 12-10-2024 10:29-0400 SaO2% (BldA) [Mass fraction] 97 % Paulo Barakat Jr., MD, PhD Work Phone: 4(601)842-668885 [place] [address] 12-10-2024 10:29-0400 Systolic blood pressure 139 mm[Hg] Paulo Barakat Jr., MD, PhD Work Phone: 0(936)281-696285 [place] [address] 11-27-2024 10:02-0400 Body height 144.[address] Thelma Frazier MD Work Phone: 5(808)115-720199 [place] [address] 11-27-2024 10:02-0400 Body mass index (BMI) [Ratio] 32.1 kg/m2 Dr. Thelma Frazier MD Work Phone: 5(435)224-465499 [place] [address] 11-27-2024 10:02-0400 Body temperature 98.5 [degF] Dr. Thelma Frazier MD Work Phone: 4(539)639-523299 [place] [address] 11-27-2024 10:02-0400 Body weight 67.[address] Thelma Frazier MD Work Phone: 0(404)461-053199 [place] [address] 11-27-2024 10:02-0400 Diastolic blood pressure 82 mm[Hg] Dr. Thelma Frazier MD Work Phone: 8(869)267-927399 [place] [address] 11-27-2024 10:02-0400 Heart rate 65 /min Dr. Thelma Frazier MD Work Phone: 6(504)827-828999 [place] [address] 11-27-2024 10:02-0400 Respiratory rate 18 /min Dr. Thelma Frazier MD Work Phone: 1(675)670-918199 [place] [address] 11-27-2024 10:02-0400 SaO2% (BldA) [Mass fraction] 98 % Dr. Thelma Frazier MD Work Phone: 9(636)996-456499 [place] [address] 11-27-2024 10:02-0400 Systolic blood pressure 150 mm[Hg] Dr. Thelma Frazier MD Work Phone: 8(530)814-527799 [place] [address] 11-20-2024 11:05-0400 Body height 144.[address] Thelma Frazier MD Work Phone: 7(762)293-148899 [place] [address] 11-20-2024 11:05-0400 Body mass index (BMI) [Ratio] 32.4 kg/m2 Dr. Thelma Frazier MD Work Phone: 3(940)412-089399 [place] [address] 11-20-2024 11:05-0400 Body temperature 98.3 [degF] Dr. Thelma Frazier MD Work Phone: 5(750)256-889699 [place] [address] 11-20-2024 11:05-0400 Body weight 68.[address] Thelma Frazier MD Work Phone: 9(155)649-996640 [place] [address] 11-20-2024 11:05-0400 Diastolic blood pressure 77 mm[Hg] Dr. Thelma Frazier MD Work Phone: 7(571)610-287340 [place] [address] 11-20-2024 11:05-0400 Heart rate 55 /min Dr. Thelma Frazier MD Work Phone: 2(650)809-082599 [place] [address] 11-20-2024 11:05-0400 Respiratory rate 16 /min Dr. Thelma Frazier MD Work Phone: 9(926)734-860799 [place] [address] 11-20-2024 11:05-0400 SaO2% (BldA) [Mass fraction] 99 % Dr. Thelma Frazier MD Work Phone: 1(470)984-484299 [place] [address] 11-20-2024 11:05-0400 Systolic blood pressure 143 mm[Hg] Dr. Thelma Frazier MD Work Phone: 4(513)099-309899 [place] [address] 10-30-2024 11:18-0400 Body height 144.[address] Thelma Frazier MD Work Phone: 9(371)656-608799 [place] [address] 10-30-2024 11:18-0400 Body mass index (BMI) [Ratio] 32.2 kg/m2 Dr. Thelma Frazier MD Work Phone: 9(665)996-299599 [place] [address] 10-30-2024 11:18-0400 Body temperature 98.4 [degF] Dr. Thelma Frazier MD Work Phone: 3(183)002-297299 [place] [address] 10-30-2024 11:18-0400 Body weight 67.[address] Thelma Frazier MD Work Phone: 3(406)003-201499 [place] [address] 10-30-2024 11:18-0400 Diastolic blood pressure 84 mm[Hg] Dr. Thelma Frazier MD Work Phone: 4(636)674-273899 [place] [address] 10-30-2024 11:18-0400 Heart rate 63 /min Dr. Thelma Frazier MD Work Phone: 7(578)842-695799 [place] [address] 10-30-2024 11:18-0400 Respiratory rate 16 /min Dr. Thelma Frazier MD Work Phone: 3(537)062-769340 [place] [address] 10-30-2024 11:18-0400 SaO2% (BldA) [Mass fraction] 97 % Dr. Thelma Frazier MD Work Phone: 9(986)065-887040 [place] [address] 10-30-2024 11:18-0400 Systolic blood pressure 163 mm[Hg] Dr. Thelma Frazier MD Work Phone: 6(506)900-934399 [place] [address] 10-23-2024 15:14-0400 Body height 144.[address] Thelma Frazier MD Work Phone: 1(606)870-776999 [place] [address] 10-23-2024 15:14-0400 Body mass index (BMI) [Ratio] 32.3 kg/m2 Dr. Thelma Frazier MD Work Phone: 9(626)497-754299 [place] [address] 10-23-2024 15:14-0400 Body temperature 98.8 [degF] Dr. Thelma Frazier MD Work Phone: 4(422)072-324799 [place] [address] 10-23-2024 15:14-0400 Body weight 67.[address] Thelma Frazier MD Work Phone: 1(180)772-745199 [place] [address] 10-23-2024 15:14-0400 Diastolic blood pressure 77 mm[Hg] Dr. Thelma Frazier MD Work Phone: 4(525)137-723099 [place] [address] 10-23-2024 15:14-0400 Heart rate 72 /min Dr. Thelma Frazier MD Work Phone: 6(909)304-201999 [place] [address] 10-23-2024 15:14-0400 Respiratory rate 16 /min Dr. Thelma Frazier MD Work Phone: 1(040)980-534499 [place] [address] 10-23-2024 15:14-0400 SaO2% (BldA) [Mass fraction] 92 % Dr. Thelma Frazier MD Work Phone: 1(369)464-226640 [place] [address] 10-23-2024 15:14-0400 Systolic blood pressure 156 mm[Hg] Dr. Thelma Frazier MD Work Phone: 4(981)858-658399 [place] [address] 10-18-2024 09:57-0400 Body height 144.8 cm Maddi KOHLI DNP Work Phone: [facility] 10-18-2024 09:57-0400 Body mass index (BMI) [Ratio] 32.01 kg/m2 Maddi KOHLI, RUPERTO Work Phone: [facility] 10-18-2024 09:57-0400 Body weight 67.09 kg Maddi RAMIREZHERNANDEZRUPERTO Work Phone: [facility] 10-18-2024 09:57-0400 Diastolic blood pressure 62 mm[Hg] Maddi RAMIREZHERNANDEZ RUPERTO Work Phone: [facility] 10-18-2024 09:57-0400 Heart rate 80 /min Maddi KOHLI DNP Work Phone: [facility] 10-18-2024 09:57-0400 Systolic blood pressure 114 mm[Hg] Maddi Garcia APRNRIGO RUPERTO Work Phone: [facility] 10-02-2024 09:05-0400 Diastolic blood pressure 74 mm[Hg] Dr. Thelma Frazier MD Work Phone: [facility] 10-02-2024 09:05-0400 Systolic blood pressure 148 mm[Hg] Dr. Thelma Frazier MD Work Phone: [facility] 10-02-2024 08:05-0400 Body height 144.[address] Thelma Frazier MD Work Phone: [facility] 10-02-2024 08:05-0400 Body mass index (BMI) [Ratio] 32.3 kg/m2 Dr. Thelma Frazier MD Work Phone: [facility] 10-02-2024 08:05-0400 Body temperature 98.3 [degF] Dr. Thelma Frazier MD Work Phone: [facility] 10-02-2024 08:05-0400 Body weight 67.[address] Thelma Frazier MD Work Phone: [facility] 10-02-2024 08:05-0400 Diastolic blood pressure 89 mm[Hg] Dr. Thelma Frazier MD Work Phone: 0(993)305-920540 [place] [address] 10-02-2024 08:05-0400 Heart rate 77 /min Dr. Thelma Frazier MD Work Phone: 2(477)804-862940 [place] [address] 10-02-2024 08:05-0400 Respiratory rate 18 /min Dr. Thelma Frazier MD Work Phone: 7(622)743-994640 [place] [address] 10-02-2024 08:05-0400 SaO2% (BldA) [Mass fraction] 99 % Dr. Thelma Frazier MD Work Phone: 2(904)664-167440 [place] [address] 10-02-2024 08:05-0400 Systolic blood pressure 163 mm[Hg] Dr. Thelma Frazier MD Work Phone: 9(552)114-723999 [place] [address] 09-25-2024 10:53-0400 Body mass index (BMI) [Ratio] 32.2 kg/m2 Dr. Thelma Frazier MD Work Phone: 2(251)757-327240 [place] [address] 09-25-2024 10:53-0400 Body temperature 97.9 [degF] Dr. Thelma Frazier MD Work Phone: 0(085)937-010240 [place] [address] 09-25-2024 10:53-0400 Body weight 67.[address] Thelma Frazier MD Work Phone: 9(960)116-420640 [place] [address] 09-25-2024 10:53-0400 Diastolic blood pressure 82 mm[Hg] Dr. Thelma Frazier MD Work Phone: 9(791)259-984440 [place] [address] 09-25-2024 10:53-0400 Heart rate 90 /min Dr. Thelma Frazier MD Work Phone: 2(827)531-474640 [place] [address] 09-25-2024 10:53-0400 Respiratory rate 16 /min Dr. Thelma Frazier MD Work Phone: 8(243)648-094340 [place] [address] 09-25-2024 10:53-0400 SaO2% (BldA) [Mass fraction] 94 % Dr. Thelma Frazier MD Work Phone: [facility] 09-25-2024 10:53-0400 Systolic blood pressure 128 mm[Hg] Dr. Thelma Frazier MD Work Phone: 9(539)200-466140 [place] [address] 09-19-2024 09:14-0400 Body mass index (BMI) [Ratio] 32.2 kg/m2 Dr. Thelma Frazier MD Work Phone: 8(788)789-280140 [place] [address] 09-19-2024 09:14-0400 Body temperature 97.3 [degF] Dr. Thelma Frazier MD Work Phone: 0(452)708-400199 [place] [address] 09-19-2024 09:14-0400 Body weight 67.[address] Thelma Frazier MD Work Phone: 5(454)934-060740 [place] [address] 09-19-2024 09:14-0400 Diastolic blood pressure 83 mm[Hg] Dr. Thelma Frazier MD Work Phone: 4(117)895-953940 [place] [address] 09-19-2024 09:14-0400 Heart rate 82 /min Dr. Thelma Frazier MD Work Phone: 4(999)475-660699 [place] [address] 09-19-2024 09:14-0400 Respiratory rate 16 /min Dr. Thelma Frazier MD Work Phone: 6(518)037-671540 [place] [address] 09-19-2024 09:14-0400 SaO2% (BldA) [Mass fraction] 98 % Dr. Thelma Frazier MD Work Phone: 0(285)746-878040 [place] [address] 09-19-2024 09:14-0400 Systolic blood pressure 131 mm[Hg] Dr. Thelma Frazier MD Work Phone: 2(359)037-936299 [place] [address] 08-28-2024 11:03-0400 Body mass index (BMI) [Ratio] 31.8 kg/m2 Dr. Thelma Frazier MD Work Phone: 8(552)813-802540 [place] [address] 08-28-2024 11:03-0400 Body temperature 96.9 [degF] Dr. Thelma Frazier MD Work Phone: 3(842)817-789140 [place] [address] 08-28-2024 11:03-0400 Body weight 66.[address] Thelma Frazier MD Work Phone: [facility] 08-28-2024 11:03-0400 Diastolic blood pressure 84 mm[Hg] Dr. Thelma Frazier MD Work Phone: [facility] 08-28-2024 11:03-0400 Heart rate 78 /min Dr. Thelma Frazier MD Work Phone: [facility] 08-28-2024 11:03-0400 Respiratory rate 16 /min Dr. Thelma Frazier MD Work Phone: [facility] 08-28-2024 11:03-0400 SaO2% (BldA) [Mass fraction] 98 % Dr. Thelma Frazier MD Work Phone: [facility] 08-28-2024 11:03-0400 Systolic blood pressure 138 mm[Hg] Dr. Thelma Frazier MD Work Phone: [facility] 08-23-2024 12:50-0400 Body height 144.8 cm Ryan Couch MD Work Phone: [facility] 08-23-2024 12:50-0400 Body mass index (BMI) [Ratio] 31.59 kg/m2 Ryan Couch MD Work Phone: [facility] 08-23-2024 12:50-0400 Body weight 66.22 kg Ryan Couch MD Work Phone: [facility] 08-23-2024 12:50-0400 Diastolic blood pressure 62 mm[Hg] Ryan Couch MD Work Phone: [facility] 08-23-2024 12:50-0400 Heart rate 92 /min Ryan Couch MD Work Phone: [facility] 08-23-2024 12:50-0400 SaO2% (BldA) [Mass fraction] 95 % Ryan Couch MD Work Phone: [facility] 08-23-2024 12:50-0400 Systolic blood pressure 122 mm[Hg] Ryan Couch MD Work Phone: [facility] 08-13-2024 12:24-0400 Body temperature 98.29 [degF] Shira Millard ELECTRICAL PROSPECTING ENGINEER-PROGRAM PRODUCTION SPECIALIST Work Phone: [facility] 08-13-2024 12:24-0400 Diastolic blood pressure 81 mm[Hg] Shira Hammondey ELECTRICAL PROSPECTING ENGINEER-PROGRAM PRODUCTION SPECIALIST Work Phone: [facility] 08-13-2024 12:24-0400 Heart rate 80 /min Shira Millard ELECTRICAL PROSPECTING ENGINEER-PROGRAM PRODUCTION SPECIALIST Work Phone: [facility] 08-13-2024 12:24-0400 Respiratory rate 14 /min Shira Millard ELECTRICAL PROSPECTING ENGINEER-PROGRAM PRODUCTION SPECIALIST Work Phone: [facility] 08-13-2024 12:24-0400 SaO2% (BldA) [Mass fraction] 97 % Shira Millard ELECTRICAL PROSPECTING ENGINEER-PROGRAM PRODUCTION SPECIALIST Work Phone: [facility] 08-13-2024 12:24-0400 Systolic blood pressure 151 mm[Hg] Shira Hammondey ELECTRICAL PROSPECTING ENGINEER-PROGRAM PRODUCTION SPECIALIST Work Phone: [facility] 07-31-2024 10:55-0400 Body height 144.[address] Thelma Frazier MD Work Phone: [facility] 07-31-2024 10:55-0400 Body mass index (BMI) [Ratio] 31.6 kg/m2 Dr. Thelma Frazier MD Work Phone: [facility] 07-31-2024 10:55-0400 Body temperature 97.2 [degF] Dr. Thelma Frazier MD Work Phone: [facility] 07-31-2024 10:55-0400 Body weight 66.[address] Thelma Frazier MD Work Phone: [facility] 07-31-2024 10:55-0400 Diastolic blood pressure 85 mm[Hg] Dr. Thelma Frazier MD Work Phone: 7(518)025-747040 [place] [address] 07-31-2024 10:55-0400 Heart rate 77 /min Dr. Thelma Frazier MD Work Phone: 0(057)413-883740 [place] [address] 07-31-2024 10:55-0400 Respiratory rate 16 /min Dr. Thelma Frazier MD Work Phone: 4(636)762-915999 [place] [address] 07-31-2024 10:55-0400 SaO2% (BldA) [Mass fraction] 98 % Dr. Thelma Frazier MD Work Phone: 2(569)872-575999 [place] [address] 07-31-2024 10:55-0400 Systolic blood pressure 145 mm[Hg] Dr. Thelma Frazier MD Work Phone: 5(976)301-998799 [place] [address] 07-17-2024 11:05-0500 Body mass index (BMI) [Ratio] 31.1 kg/m2 Dr. Thelma Frazier MD Work Phone: 6(277)863-595840 [place] [address] 07-17-2024 11:05-0500 Body temperature 97.3 [degF] Dr. Thelma Frazier MD Work Phone: 7(422)979-419699 [place] [address] 07-17-2024 11:05-0500 Body weight 65.[address] Thelma Frazier MD Work Phone: 8(211)922-264299 [place] [address] 07-17-2024 11:05-0500 Diastolic blood pressure 86 mm[Hg] Dr. Thelma Frazier MD Work Phone: 4(872)801-317440 [place] [address] 07-17-2024 11:05-0500 Heart rate 86 /min Dr. Thelma Frazier MD Work Phone: 6(888)618-763799 [place] [address] 07-17-2024 11:05-0500 Respiratory rate 18 /min Dr. Thelma Frazier MD Work Phone: 3(175)604-732299 [place] [address] 07-17-2024 11:05-0500 SaO2% (BldA) [Mass fraction] 96 % Dr. Thelma Frazier MD Work Phone: 3(491)787-367818 [address] 07-17-2024 11:05-0500 Systolic blood pressure 136 mm[Hg] Dr. Thelma Frazier MD Work Phone: 9(024)476-048640 [place] [address] 07-03-2024 10:44-0500 Body mass index (BMI) [Ratio] 31.1 kg/m2 Dr. Thelma Frazier MD Work Phone: 7(372)993-353499 [place] [address] 07-03-2024 10:44-0500 Body temperature 97.9 [degF] Dr. Thelma Frazier MD Work Phone: 9(178)883-775999 [place] [address] 07-03-2024 10:44-0500 Body weight 65.[address] Thelma Frazier MD Work Phone: 1(076)126-542199 [place] [address] 07-03-2024 10:44-0500 Diastolic blood pressure 78 mm[Hg] Dr. Thelma Frazier MD Work Phone: 1(439)992-486899 [place] [address] 07-03-2024 10:44-0500 Heart rate 78 /min Dr. Thelma Frazier MD Work Phone: 7(340)865-293199 [place] [address] 07-03-2024 10:44-0500 Respiratory rate 18 /min Dr. Thelma Frazier MD Work Phone: 0(551)292-301699 [place] [address] 07-03-2024 10:44-0500 SaO2% (BldA) [Mass fraction] 95 % Dr. Thelma Frazier MD Work Phone: 0(986)849-073599 [place] [address] 07-03-2024 10:44-0500 Systolic blood pressure 117 mm[Hg] Dr. Thelma Frazier MD Work Phone: 4(783)633-546499 [place] [address] 06-19-2024 11:42-0500 Body mass index (BMI) [Ratio] 30.9 kg/m2 Dr. Thelma Frazier MD Work Phone: 5(198)478-143499 [place] [address] 06-19-2024 11:42-0500 Body temperature 96.4 [degF] Dr. Thelma Frazier MD Work Phone: 8(996)677-312340 [place] [address] 06-19-2024 11:42-0500 Body weight 64.[address] Thelma Frazier MD Work Phone: [facility] 06-19-2024 11:42-0500 Diastolic blood pressure 91 mm[Hg] Dr. Thelma Frazier MD Work Phone: [facility] 06-19-2024 11:42-0500 Heart rate 72 /min Dr. Thelma Frazier MD Work Phone: [facility] 06-19-2024 11:42-0500 Respiratory rate 18 /min Dr. Thelma Frazier MD Work Phone: [facility] 06-19-2024 11:42-0500 SaO2% (BldA) [Mass fraction] 94 % Dr. Thelma Frazier MD Work Phone: [facility] 06-19-2024 11:42-0500 Systolic blood pressure 165 mm[Hg] Dr. Thelma Frazier MD Work Phone: [facility] 06-18-2024 16:39-0500 Body height 144.8 cm Thelma Frazier DO Work Phone: [facility] 06-18-2024 16:39-0500 Body mass index (BMI) [Ratio] 30.94 kg/m2 Thelma Roselle DO Work Phone: [facility] 06-18-2024 16:39-0500 Body weight 64.86 kg Thelma Frazier DO Work Phone: [facility] 06-18-2024 16:39-0500 Diastolic blood pressure 82 mm[Hg] Thelma Roselle DO Work Phone: [facility] 06-18-2024 16:39-0500 Heart rate 85 /min Thelma Frazier DO Work Phone: [facility] 06-18-2024 16:39-0500 SaO2% (BldA) [Mass fraction] 95 % Thelma Roselle DO Work Phone: [facility] 06-18-2024 16:39-0500 Systolic blood pressure 122 mm[Hg] Thelma Frazier DO Work Phone: [facility] 06-12-2024 16:12-0500 Body height 144.8 cm Thelma Roselle DO Work Phone: [facility] 06-12-2024 16:12-0500 Body mass index (BMI) [Ratio] 30.6 kg/m2 Thelma Roselle DO Work Phone: [facility] 06-12-2024 16:12-0500 Body weight 64.14 kg Thelma Roselle DO Work Phone: [facility] 06-12-2024 16:12-0500 Diastolic blood pressure 74 mm[Hg] Thelma Roselle DO Work Phone: [facility] 06-12-2024 16:12-0500 Heart rate 121 /min Thelma Roselle DO Work Phone: [facility] 06-12-2024 16:12-0500 SaO2% (BldA) [Mass fraction] 90 % Thelma Roselle DO Work Phone: [facility] 06-12-2024 16:12-0500 Systolic blood pressure 128 mm[Hg] Thelma Roselle DO Work Phone: [facility] 06-10-2024 09:37-0500 Body height 144.8 cm Madeline Mccallton [employer]IST Work Phone: [employer] 06-10-2024 09:37-0500 Body mass index (BMI) [Ratio] 31.07 kg/m2 Madeline Mueller [employer]IST Work Phone: [facility] 06-10-2024 09:37-0500 Body temperature 98.49 [degF] Madeline Mccallton [employer]IST Work Phone: [facility] 06-10-2024 09:37-0500 Body weight 65.14 kg Madeline Mccallton [employer]IST Work Phone: [facility] 06-10-2024 09:37-0500 Diastolic blood pressure 87 mm[Hg] Madeline Mueller [employer]IST Work Phone: [employer] 06-10-2024 09:37-0500 Heart rate 90 /min Madeline Mueller [employer]IST Work Phone: [employer] 06-10-2024 09:37-0500 Respiratory rate 18 /min Madeline Mueller [employer]IST Work Phone: [employer] 06-10-2024 09:37-0500 SaO2% (BldA) [Mass fraction] 94 % Madeline Mueller PROGRAM PRODUCTION SPECIALIST Work Phone: [employer] 06-10-2024 09:37-0500 Systolic blood pressure 158 mm[Hg] Madeline Mueller PROGRAM PRODUCTION SPECIALIST Work Phone: [facility] 06-06-2024 11:46-0500 Body height 144.8 cm Thelma Roselle DO Work Phone: [facility] 06-06-2024 11:46-0500 Body mass index (BMI) [Ratio] 31.37 kg/m2 Thelma Roselle DO Work Phone: [facility] 06-06-2024 11:46-0500 Body weight 65.77 kg Thelma Roselle DO Work Phone: [facility] 06-06-2024 11:46-0500 Diastolic blood pressure 82 mm[Hg] Thelma Roselle DO Work Phone: [facility] 06-06-2024 11:46-0500 Heart rate 90 /min Thelma Roselle DO Work Phone: [facility] 06-06-2024 11:46-0500 SaO2% (BldA) [Mass fraction] 97 % Thelma Roselle DO Work Phone: [facility] 06-06-2024 11:46-0500 Systolic blood pressure 132 mm[Hg] Thelma Roselle DO Work Phone: [facility] 06-05-2024 10:44-0500 Body mass index (BMI) [Ratio] 31.1 kg/m2 Dr. Thelma Frazier MD Work Phone: [facility] 06-05-2024 10:44-0500 Body temperature 96.8 [degF] Dr. Thelma Fraizer MD Work Phone: [facility] 06-05-2024 10:44-0500 Body weight 65.[address] Thelma Frazier MD Work Phone: [facility] 06-05-2024 10:44-0500 Diastolic blood pressure 78 mm[Hg] Dr. Thelma Frazier MD Work Phone: [facility] 06-05-2024 10:44-0500 Heart rate 82 /min Dr. Thelma Frazier MD Work Phone: [facility] 06-05-2024 10:44-0500 Respiratory rate 18 /min Dr. Thelma Frazier MD Work Phone: [facility] 06-05-2024 10:44-0500 SaO2% (BldA) [Mass fraction] 97 % Dr. Thelma Frazier MD Work Phone: [facility] 06-05-2024 10:44-0500 Systolic blood pressure 129 mm[Hg] Dr. Thelma Frazier MD Work Phone: [facility] 05-31-2024 16:03-0500 Body height 144.8 cm Thelma Frazier DO Work Phone: [facility] 05-31-2024 16:03-0500 Body mass index (BMI) [Ratio] 31.81 kg/m2 Thelma Frazier DO Work Phone: [facility] 05-31-2024 16:03-0500 Body temperature 99.5 [degF] Thelma Frazier DO Work Phone: [facility] 05-31-2024 16:03-0500 Body weight 66.68 kg Thelma Frazier DO Work Phone: [facility] 05-31-2024 16:03-0500 Diastolic blood pressure 75 mm[Hg] Thelma Frazier DO Work Phone: [facility] 05-31-2024 16:03-0500 Heart rate 94 /min Thelma Frazier DO Work Phone: [facility] 05-31-2024 16:03-0500 Respiratory rate 17 /min Thelma Frazier DO Work Phone: [facility] 05-31-2024 16:03-0500 SaO2% (BldA) [Mass fraction] 94 % Thelma Frazier DO Work Phone: [facility] 05-31-2024 16:03-0500 Systolic blood pressure 138 mm[Hg] Thelma Frazier DO Work Phone: [facility] 05-22-2024 14:12-0500 Body temperature 97.2 [degF] Dr. Thelma Frazier MD Work Phone: [facility] 05-22-2024 14:12-0500 Diastolic blood pressure 71 mm[Hg] Dr. Thelma Frazier MD Work Phone: [facility] 05-22-2024 14:12-0500 Heart rate 92 /min Dr. Thelma Frazier MD Work Phone: [facility] 05-22-2024 14:12-0500 Respiratory rate 16 /min Dr. Thelma Frazier MD Work Phone: [facility] 05-22-2024 14:12-0500 SaO2% (BldA) [Mass fraction] 93 % Dr. Thelma Frazier MD Work Phone: [facility] 05-22-2024 14:12-0500 Systolic blood pressure 155 mm[Hg] Dr. Thelma Frazier MD Work Phone: [facility] 05-08-2024 10:55-0500 Body mass index (BMI) [Ratio] 31.8 kg/m2 Dr. Thelma Frazier MD Work Phone: [facility] 05-08-2024 10:55-0500 Body temperature 97.3 [degF] Dr. Thelma Frazier MD Work Phone: [facility] 05-08-2024 10:55-0500 Body weight 66.[address] Thelma Frazier MD Work Phone: [facility] 05-08-2024 10:55-0500 Diastolic blood pressure 78 mm[Hg] Dr. Thelma Frazier MD Work Phone: [facility] 05-08-2024 10:55-0500 Heart rate 72 /min Dr. Thelma Frazier MD Work Phone: [facility] 05-08-2024 10:55-0500 Respiratory rate 16 /min Dr. Thelma Frazier MD Work Phone: [facility] 05-08-2024 10:55-0500 SaO2% (BldA) [Mass fraction] 96 % Dr. Thelma Frazier MD Work Phone: [facility] 05-08-2024 10:55-0500 Systolic blood pressure 147 mm[Hg] Dr. Thelma Frazier MD Work Phone: [facility] 04-24-2024 10:48-0500 Body mass index (BMI) [Ratio] 31.5 kg/m2 Dr. Thelma Frazier MD Work Phone: [facility] 04-18-2024 09:34-0500 Body height 144.8 cm Pawan Newbill PA-C Work Phone: [facility] 04-18-2024 09:34-0500 Body mass index (BMI) [Ratio] 32.03 kg/m2 Pawan Newbill PA-C Work Phone: [facility] 04-18-2024 09:34-0500 Body temperature 98.1 [degF] Pawananatoly Quintanillabill PA-C Work Phone: [facility] 04-18-2024 09:34-0500 Body weight 67.13 kg Pawan Newbill PA-C Work Phone: [facility] 04-18-2024 09:34-0500 Diastolic blood pressure 80 mm[Hg] Pawan Newbill PA-C Work Phone: [facility] 04-18-2024 09:34-0500 Heart rate 87 /min Pawan Newbill PA-C Work Phone: [facility] 04-18-2024 09:34-0500 Respiratory rate 18 /min Pawan Newbill PA-C Work Phone: [facility] 04-18-2024 09:34-0500 SaO2% (BldA) [Mass fraction] 96 % Pawan Newbill PA-C Work Phone: [facility] 04-18-2024 09:34-0500 Systolic blood pressure 129 mm[Hg] Pawan Newbill PA-C Work Phone: [facility] 04-12-2024 08:30-0500 Body height 144.8 cm Thelma Roselle DO Work Phone: [facility] 04-12-2024 08:30-0500 Body mass index (BMI) [Ratio] 32.03 kg/m2 Thelma Roselle DO Work Phone: [facility] 04-12-2024 08:30-0500 Body weight 67.13 kg Thelma Roselle DO Work Phone: [facility] 04-12-2024 08:30-0500 Diastolic blood pressure 68 mm[Hg] Thelma Roselle DO Work Phone: [facility] 04-12-2024 08:30-0500 Heart rate 72 /min Thelma Roselle DO Work Phone: [facility] 04-12-2024 08:30-0500 SaO2% (BldA) [Mass fraction] 96 % Thelma Roselle DO Work Phone: [facility] 04-12-2024 08:30-0500 Systolic blood pressure 126 mm[Hg] Thelma Frazier DO Work Phone: [facility] 04-10-2024 13:20-0500 Body mass index (BMI) [Ratio] 31.8 kg/m2 Dr. Thelma Frazier MD Work Phone: [facility] 04-10-2024 13:20-0500 Body temperature 97.6 [degF] Dr. Thelma Frazier MD Work Phone: [facility] 04-10-2024 13:20-0500 Body weight 66.[address] Thelma Frazier MD Work Phone: [facility] 04-10-2024 13:20-0500 Diastolic blood pressure 77 mm[Hg] Dr. Thelma Frazier MD Work Phone: [facility] 04-10-2024 13:20-0500 Heart rate 85 /min Dr. Thelma Frazier MD Work Phone: [facility] 04-10-2024 13:20-0500 Respiratory rate 18 /min Dr. Thelma Frazier MD Work Phone: [facility] 04-10-2024 13:20-0500 SaO2% (BldA) [Mass fraction] 95 % Dr. Thelma Frazier MD Work Phone: [facility] 04-10-2024 13:20-0500 Systolic blood pressure 128 mm[Hg] Dr. Thelma Frazier MD Work Phone: [facility] 01-30-2024 10:36-0400 Body height 144.8 cm Paulo Barakat Jr., MD, PhD Work Phone: [facility] 01-30-2024 10:36-0400 Body mass index (BMI) [Ratio] 33.28 kg/m2 Paulo Barakat Jr., MD, PhD Work Phone: [facility] 01-30-2024 10:36-0400 Body temperature 97.39 [degF] Paulo Barakat Jr., MD, PhD Work Phone: [facility] 01-30-2024 10:36-0400 Body weight 69.76 kg Paulo Barakat Jr., MD, PhD Work Phone: [facility] 01-30-2024 10:36-0400 Diastolic blood pressure 69 mm[Hg] Paulo Barakat Jr., MD, PhD Work Phone: [facility] 01-30-2024 10:36-0400 Heart rate 77 /min Paulo Barakat Jr., MD, PhD Work Phone: [facility] 01-30-2024 10:36-0400 Respiratory rate 16 /min Paulo Barakat Jr., MD, PhD Work Phone: [facility] 01-30-2024 10:36-0400 SaO2% (BldA) [Mass fraction] 96 % Paulo Barakat Jr., MD, PhD Work Phone: [facility] 01-30-2024 10:36-0400 Systolic blood pressure 140 mm[Hg] Paulo Barakat Jr., MD, PhD Work Phone: [facility] 12-06-2023 16:40-0400 Body mass index (BMI) [Ratio] 33.84 kg/m2 Thelma Roselle DO Work Phone: [facility] 12-06-2023 16:40-0400 Body weight 70.94 kg Thelma Roselle DO Work Phone: [facility] 12-06-2023 16:40-0400 Diastolic blood pressure 60 mm[Hg] Thelma Roselle DO Work Phone: [facility] 12-06-2023 16:40-0400 Heart rate 97 /min Thelma Roselle DO Work Phone: [facility] 12-06-2023 16:40-0400 SaO2% (BldA) [Mass fraction] 97 % Thelma Roselle DO Work Phone: [facility] 12-06-2023 16:40-0400 Systolic blood pressure 126 mm[Hg] Thelma Frazier DO Work Phone: [facility] 10-24-2023 08:25-0400 Body height 144.8 cm Paulo Barakat MD, PhD Work Phone: [facility] 10-24-2023 08:25-0400 Body mass index (BMI) [Ratio] 37.22 kg/m2 Paulo Barakat MD, PhD Work Phone: [facility] 10-24-2023 08:25-0400 Body temperature 98.1 [degF] Paulo Barakat MD, PhD Work Phone: [facility] 10-24-2023 08:25-0400 Body weight 78.02 kg Paulo Barakat MD, PhD Work Phone: [facility] 10-24-2023 08:25-0400 Diastolic blood pressure 67 mm[Hg] Paulo Barakat MD, PhD Work Phone: [facility] 10-24-2023 08:25-0400 Heart rate 80 /min Paulo Barakat MD, PhD Work Phone: [facility] 10-24-2023 08:25-0400 Respiratory rate 17 /min Paulo Barakat MD, PhD Work Phone: [facility] 10-24-2023 08:25-0400 SaO2% (BldA) [Mass fraction] 95 % Paulo Barakat MD, PhD Work Phone: [facility] 10-24-2023 08:25-0400 Systolic blood pressure 143 mm[Hg] Paulo Barakat MD, PhD Work Phone: [facility] 10-13-2023 10:47-0400 Body mass index (BMI) [Ratio] 37.52 kg/m2 Maddi KOHLI, DNP Work Phone: [facility] 10-13-2023 10:47-0400 Body weight 78.65 kg Maddi KOHLI DNP Work Phone: [facility] 10-13-2023 10:47-0400 Diastolic blood pressure 66 mm[Hg] Maddi KOHLI, DNP Work Phone: [facility] 10-13-2023 10:47-0400 Heart rate 66 /min Maddi KOHLI, DNP Work Phone: [facility] 10-13-2023 10:47-0400 SaO2% (BldA) [Mass fraction] 96 % Maddi KOHLI DNP Work Phone: [facility] 10-13-2023 10:47-0400 Systolic blood pressure 144 mm[Hg] Maddi KOHLI DNP Work Phone: [facility] 10-06-2023 09:16-0400 Body height 144.8 cm Thelma Roselle DO Work Phone: [facility] 10-06-2023 09:16-0400 Body mass index (BMI) [Ratio] 36.57 kg/m2 Thelma Roselle DO Work Phone: [facility] 10-06-2023 09:16-0400 Body weight 76.66 kg Thelma Roselle DO Work Phone: [facility] 10-06-2023 09:16-0400 Diastolic blood pressure 80 mm[Hg] Thelma Roselle DO Work Phone: [facility] 10-06-2023 09:16-0400 Heart rate 67 /min Thelma Roselle DO Work Phone: [facility] 10-06-2023 09:16-0400 SaO2% (BldA) [Mass fraction] 97 % Thelma Roselle DO Work Phone: [facility] 10-06-2023 09:16-0400 Systolic blood pressure 124 mm[Hg] Thelma Frazier DO Work Phone: [facility] 08-22-2023 15:58-0400 Body height 144.8 cm Ryan Couch MD Work Phone: [facility] 08-22-2023 15:58-0400 Body mass index (BMI) [Ratio] 37.03 kg/m2 Ryan Couch MD Work Phone: [facility] 08-22-2023 15:58-0400 Body weight 77.61 kg Ryan Couch MD Work Phone: [facility] 08-22-2023 15:58-0400 Diastolic blood pressure 64 mm[Hg] Ryan Couch MD Work Phone: [facility] 08-22-2023 15:58-0400 Heart rate 85 /min Ryan Couch MD Work Phone: [facility] 08-22-2023 15:58-0400 SaO2% (BldA) [Mass fraction] 95 % Ryan Couch MD Work Phone: [facility] 08-22-2023 15:58-0400 Systolic blood pressure 128 mm[Hg] Ryan Couch MD Work Phone: [facility] 07-28-2023 15:00-0500 Body height 144.8 cm Ryan Couch MD Work Phone: [facility] 07-28-2023 15:00-0500 Body mass index (BMI) [Ratio] 37.29 kg/m2 Ryan Couch MD Work Phone: [facility] 07-28-2023 15:00-0500 Body weight 78.16 kg Ryan Couch MD Work Phone: [facility] 07-28-2023 15:00-0500 Diastolic blood pressure 66 mm[Hg] Ryan Couch MD Work Phone: [facility] 07-28-2023 15:00-0500 Heart rate 89 /min Ryan Couch MD Work Phone: [facility] 07-28-2023 15:00-0500 SaO2% (BldA) [Mass fraction] 97 % Ryan Couch MD Work Phone: [facility] 07-28-2023 15:00-0500 Systolic blood pressure 124 mm[Hg] Ryan Couch MD Work Phone: [facility] 07-21-2023 10:36-0500 Body height 144.8 cm Thelma Roselle DO Work Phone: [facility] 07-21-2023 10:36-0500 Body mass index (BMI) [Ratio] 36.42 kg/m2 Thelma Roselle DO Work Phone: [facility] 07-21-2023 10:36-0500 Body weight 76.34 kg Thelma Roselle DO Work Phone: [facility] 07-21-2023 10:36-0500 Diastolic blood pressure 68 mm[Hg] Thelma Roselle DO Work Phone: [facility] 07-21-2023 10:36-0500 Heart rate 75 /min Thelma Roselle DO Work Phone: [facility] 07-21-2023 10:36-0500 SaO2% (BldA) [Mass fraction] 98 % Thelma Roselle DO Work Phone: [facility] 07-21-2023 10:36-0500 Systolic blood pressure 120 mm[Hg] Thelma Roselle DO Work Phone: [facility] 07-09-2023 19:32-0500 SaO2% (BldA) [Mass fraction] 94 % Thelma Roselle DO Work Phone: [facility] 07-09-2023 19:00-0500 Diastolic blood pressure 60 mm[Hg] Thelma Roselle DO Work Phone: [facility] 07-09-2023 19:00-0500 Heart rate 84 /min Thelma Roselle DO Work Phone: [facility] 07-09-2023 19:00-0500 Respiratory rate 16 /min Thelma Roselle DO Work Phone: [facility] 07-09-2023 19:00-0500 Systolic blood pressure 123 mm[Hg] Thelma Roselle DO Work Phone: [facility] 07-09-2023 15:20-0500 Body height 144.8 cm Thelma Frazier DO Work Phone: [facility] 07-09-2023 15:20-0500 Body mass index (BMI) [Ratio] 38.52 kg/m2 Thelma Roselle DO Work Phone: [facility] 07-09-2023 15:20-0500 Body temperature 98.49 [degF] Thelma Frazier DO Work Phone: [facility] 07-09-2023 15:20-0500 Body weight 80.74 kg Thelma Frazier DO Work Phone: [facility] 06-21-2023 11:10-0500 Body height 144.[address] Thelma Frazier Work Phone: [facility] 06-21-2023 11:10-0500 Body mass index (BMI) [Ratio] 37.5 kg/m2 Dr. Thelma Frazier Work Phone: [facility] 06-21-2023 11:10-0500 Body temperature 97.5 [degF] Dr. Thelma Frazier Work Phone: [facility] 06-21-2023 11:10-0500 Body weight 78.[address] Thelma Frazier Work Phone: [facility] 06-21-2023 11:10-0500 Diastolic blood pressure 84 mm[Hg] Dr. Thelma Frazier Work Phone: 2(011)653-369840 [place] [address] 06-21-2023 11:10-0500 Heart rate 74 /min Dr. Thelma Frazier Work Phone: 0(983)959-898540 [place] [address] 06-21-2023 11:10-0500 Respiratory rate 18 /min Dr. Thelma Frazier Work Phone: 4(192)598-465999 [place] [address] 06-21-2023 11:10-0500 SaO2% (BldA) [Mass fraction] 96 % Dr. Thelma Frazier Work Phone: 0(496)803-284240 [place] [address] 06-21-2023 11:10-0500 Systolic blood pressure 149 mm[Hg] Dr. Thelma Frazier Work Phone: 0(698)351-628699 [place] [address] 06-14-2023 14:45-0500 Body mass index (BMI) [Ratio] 36.8 kg/m2 Dr. Thelma Frazier Work Phone: 9(586)728-898299 [place] [address] 06-14-2023 14:45-0500 Body temperature 97.6 [degF] Dr. Thelma Frazier Work Phone: 4(823)219-832899 [place] [address] 06-14-2023 14:45-0500 Body weight 77.[address] Thelma Frazier Work Phone: 4(734)336-969299 [place] [address] 06-14-2023 14:45-0500 Diastolic blood pressure 75 mm[Hg] Dr. Thelma Frazier Work Phone: 5(703)022-705899 [place] [address] 06-14-2023 14:45-0500 Heart rate 85 /min Dr. Thelma Frazier Work Phone: 0(052)197-007999 [place] [address] 06-14-2023 14:45-0500 Respiratory rate 18 /min Dr. Thelma Frazier Work Phone: 7(749)215-848099 [place] [address] 06-14-2023 14:45-0500 SaO2% (BldA) [Mass fraction] 95 % Dr. Thelma Frazier Work Phone: 2(827)255-989199 [place] [address] 06-14-2023 14:45-0500 Systolic blood pressure 146 mm[Hg] Dr. Thelma Frazier Work Phone: [facility] 06-08-2023 11:35-0500 Body height 144.8 cm Thelma Frazier DO Work Phone: [facility] 06-08-2023 11:35-0500 Body mass index (BMI) [Ratio] 36.57 kg/m2 Thelma Roselle DO Work Phone: [facility] 06-08-2023 11:35-0500 Body weight 76.66 kg Thelma Roselle DO Work Phone: [facility] 06-08-2023 11:35-0500 Diastolic blood pressure 78 mm[Hg] Thelma Frazier DO Work Phone: [facility] 06-08-2023 11:35-0500 Heart rate 77 /min Thelma Frazier DO Work Phone: [facility] 06-08-2023 11:35-0500 SaO2% (BldA) [Mass fraction] 98 % Thelma Frazier DO Work Phone: [facility] 06-08-2023 11:35-0500 Systolic blood pressure 150 mm[Hg] Thelma Frazier DO Work Phone: [facility] 06-07-2023 12:51-0500 Body height 144.[address] Thelma Frazier Work Phone: [facility] 06-07-2023 12:51-0500 Body mass index (BMI) [Ratio] 36.8 kg/m2 Dr. Thelma Frazier Work Phone: [facility] 06-07-2023 12:51-0500 Body temperature 97.2 [degF] Dr. Thelma Frazier Work Phone: [facility] 06-07-2023 12:51-0500 Body weight 77.[address] Thelma Frazier Work Phone: [facility] 06-07-2023 12:51-0500 Diastolic blood pressure 79 mm[Hg] Dr. Thelma Frazier Work Phone: [facility] 06-07-2023 12:51-0500 Heart rate 83 /min Dr. Thelma Frazier Work Phone: 4(216)476-736940 [place] [address] 06-07-2023 12:51-0500 Respiratory rate 16 /min Dr. Thelma Frazier Work Phone: 2(406)513-287440 [place] [address] 06-07-2023 12:51-0500 SaO2% (BldA) [Mass fraction] 95 % Dr. Thelma Frazier Work Phone: 7(317)630-206040 [place] [address] 06-07-2023 12:51-0500 Systolic blood pressure 155 mm[Hg] Dr. Thelma Frazier Work Phone: 9(537)257-004840 [place] [address] 05-24-2023 13:09-0500 Body mass index (BMI) [Ratio] 38.1 kg/m2 Dr. Thelma Frazier Work Phone: 1(289)490-462340 [place] [address] 05-24-2023 13:09-0500 Body temperature 96.7 [degF] Dr. Thelma Frazier Work Phone: 7(380)281-439840 [place] [address] 05-24-2023 13:09-0500 Body weight 79.[address] Thelma Frazier Work Phone: 3(547)795-401040 [place] [address] 05-24-2023 13:09-0500 Diastolic blood pressure 84 mm[Hg] Dr. Thelma Frazier Work Phone: 8(323)648-066040 [place] [address] 05-24-2023 13:09-0500 Heart rate 82 /min Dr. Thelma Frazier Work Phone: 2(242)595-588040 [place] [address] 05-24-2023 13:09-0500 Respiratory rate 18 /min Dr. Thelma Frazier Work Phone: 2(193)751-299140 [place] [address] 05-24-2023 13:09-0500 SaO2% (BldA) [Mass fraction] 95 % Dr. Thelma Frazier Work Phone: 3(547)362-371740 [place] [address] 05-24-2023 13:09-0500 Systolic blood pressure 146 mm[Hg] Dr. Thelma Frazier Work Phone: [facility] 05-17-2023 11:07-0500 Body mass index (BMI) [Ratio] 38.5 kg/m2 Dr. Thelma Frazier Work Phone: [facility] 05-17-2023 11:07-0500 Body temperature 98.2 [degF] Dr. Thelma Frazier Work Phone: 8(842)906-030740 [place] [address] 05-17-2023 11:07-0500 Body weight 80.[address] Thelma Frazier Work Phone: 7(378)782-021140 [place] [address] 05-17-2023 11:07-0500 Diastolic blood pressure 79 mm[Hg] Dr. Thelma Frazier Work Phone: 1(974)800-816599 [place] [address] 05-17-2023 11:07-0500 Heart rate 85 /min Dr. Thelma Frazier Work Phone: 3(371)545-009199 [place] [address] 05-17-2023 11:07-0500 Respiratory rate 18 /min Dr. Thelma Frazier Work Phone: 5(986)303-515540 [place] [address] 05-17-2023 11:07-0500 SaO2% (BldA) [Mass fraction] 95 % Dr. Thelma Frazier Work Phone: 1(066)343-829440 [place] [address] 05-17-2023 11:07-0500 Systolic blood pressure 161 mm[Hg] Dr. Thelma Frazier Work Phone: 8(700)480-244740 [place] [address] 05-10-2023 10:22-0500 Body mass index (BMI) [Ratio] 37.6 kg/m2 Dr. Thelma Frazier Work Phone: [facility] 05-10-2023 10:22-0500 Body temperature 97.7 [degF] Dr. Thelma Frazier Work Phone: 3(419)783-331840 [place] [address] 05-10-2023 10:22-0500 Body weight 78.[address] Thelma Frazier Work Phone: 4(087)089-757740 [place] [address] 05-10-2023 10:22-0500 Diastolic blood pressure 84 mm[Hg] Dr. Thelma Frazier Work Phone: [facility] 05-10-2023 10:22-0500 Heart rate 81 /min Dr. Thelma Frazier Work Phone: [facility] 05-10-2023 10:22-0500 Respiratory rate 14 /min Dr. Thelma Frazier Work Phone: [facility] 05-10-2023 10:22-0500 SaO2% (BldA) [Mass fraction] 95 % Dr. Thelma Frazier Work Phone: [facility] 05-10-2023 10:22-0500 Systolic blood pressure 133 mm[Hg] Dr. Thelma Frazier Work Phone: [facility] 04-26-2023 13:05-0500 Body mass index (BMI) [Ratio] 37.3 kg/m2 Dr. Thelma Frazier Work Phone: [facility] 04-26-2023 13:05-0500 Body temperature 97.3 [degF] Dr. Thelma Frazier Work Phone: [facility] 04-26-2023 13:05-0500 Body weight 78.[address] Thelma Frazier Work Phone: [facility] 04-26-2023 13:05-0500 Diastolic blood pressure 84 mm[Hg] Dr. Thelma Frazier Work Phone: [facility] 04-26-2023 13:05-0500 Heart rate 82 /min Dr. Thelma Frazier Work Phone: [facility] 04-26-2023 13:05-0500 Respiratory rate 16 /min Dr. Thelma Frazier Work Phone: [facility] 04-26-2023 13:05-0500 SaO2% (BldA) [Mass fraction] 95 % Dr. Thelma Frazier Work Phone: [facility] 04-26-2023 13:05-0500 Systolic blood pressure 161 mm[Hg] Dr. Thelma Frazier Work Phone: 1(206)913-490040 [place] [address] 04-19-2023 10:50-0500 Body mass index (BMI) [Ratio] 36.8 kg/m2 Dr. Thelma Frazier Work Phone: 3(451)043-888640 [place] [address] 04-19-2023 10:50-0500 Body temperature 97.6 [degF] Dr. Thelma Frazier Work Phone: 6(366)101-156340 [place] [address] 04-19-2023 10:50-0500 Body weight 77.[address] Thelma Frazier Work Phone: 9(645)410-880599 [place] [address] 04-19-2023 10:50-0500 Diastolic blood pressure 82 mm[Hg] Dr. Thelma Frazier Work Phone: 5(452)935-151499 [place] [address] 04-19-2023 10:50-0500 Heart rate 79 /min Dr. Thelma Frazier Work Phone: 8(556)454-903999 [place] [address] 04-19-2023 10:50-0500 Respiratory rate 18 /min Dr. Thelma Frazier Work Phone: 8(635)471-265899 [place] [address] 04-19-2023 10:50-0500 SaO2% (BldA) [Mass fraction] 95 % Dr. Thelma Frazier Work Phone: 4(462)549-601799 [place] [address] 04-19-2023 10:50-0500 Systolic blood pressure 161 mm[Hg] Dr. Thelma Frazier Work Phone: 1(328)787-213099 [place] [address] 04-12-2023 09:30-0500 Body mass index (BMI) [Ratio] 36.6 kg/m2 Dr. Thelma Frazier Work Phone: 0(393)571-963099 [place] [address] 04-12-2023 09:30-0500 Body temperature 97.5 [degF] Dr. Thelma Frazier Work Phone: 1(592)191-255899 [place] [address] 04-12-2023 09:30-0500 Body weight 76.[address] Thelma Frazier Work Phone: 3(582)560-507499 [place] [address] 04-12-2023 09:30-0500 Diastolic blood pressure 84 mm[Hg] Dr. Thelma Roselle Work Phone: [facility] 04-12-2023 09:30-0500 Heart rate 82 /min Dr. Thelma Frazier Work Phone: [facility] 04-12-2023 09:30-0500 Respiratory rate 16 /min Dr. Thelma Frazier Work Phone: [facility] 04-12-2023 09:30-0500 SaO2% (BldA) [Mass fraction] 95 % Dr. Thelma Frazier Work Phone: [facility] 04-12-2023 09:30-0500 Systolic blood pressure 177 mm[Hg] Dr. Thelma Frazier Work Phone: 8(995)151-297940 [place] [address] 03-29-2023 12:59-0500 Body mass index (BMI) [Ratio] 36.6 kg/m2 Dr. Thelma Frazier Work Phone: 0(572)737-045440 [place] [address] 03-29-2023 12:59-0500 Body temperature 97.3 [degF] Dr. Thelma Frazier Work Phone: [facility] 03-29-2023 12:59-0500 Body weight 76.[address] Thelma Frazier Work Phone: [facility] 03-29-2023 12:59-0500 Diastolic blood pressure 84 mm[Hg] Dr. Thelma Frazier Work Phone: [facility] 03-29-2023 12:59-0500 Heart rate 85 /min Dr. Thelma Frazier Work Phone: [facility] 03-29-2023 12:59-0500 Respiratory rate 16 /min Dr. Thelma Frazier Work Phone: [facility] 03-29-2023 12:59-0500 SaO2% (BldA) [Mass fraction] 98 % Dr. Thelma Frazier Work Phone: [facility] 03-29-2023 12:59-0500 Systolic blood pressure 166 mm[Hg] Dr. Thelma Roselle Work Phone: [facility] 03-24-2023 10:20-0400 Diastolic blood pressure 74 mm[Hg] Thelma Roselle DO Work Phone: [facility] 03-24-2023 10:20-0400 Systolic blood pressure 138 mm[Hg] Thelma Roselle DO Work Phone: [facility] 03-24-2023 10:00-0400 Body mass index (BMI) [Ratio] 36.57 kg/m2 Thelma Roselle DO Work Phone: [facility] 03-24-2023 10:00-0400 Body weight 76.66 kg Thelma Frazier DO Work Phone: [facility] 03-24-2023 10:00-0400 Heart rate 68 /min Thelma Frazier DO Work Phone: [facility] 03-24-2023 10:00-0400 SaO2% (BldA) [Mass fraction] 98 % Thelma Frazier DO Work Phone: [facility] 03-22-2023 13:17-0400 Body mass index (BMI) [Ratio] 35.9 kg/m2 Dr. Thelma Frazier Work Phone: [facility] 03-22-2023 13:17-0400 Body temperature 97.5 [degF] Dr. Thelma Frazier Work Phone: [facility] 03-22-2023 13:17-0400 Body weight 75.[address] Thelma Frazier Work Phone: [facility] 03-22-2023 13:17-0400 Diastolic blood pressure 79 mm[Hg] Dr. Thelma Frazier Work Phone: [facility] 03-22-2023 13:17-0400 Heart rate 88 /min Dr. Thelma Frazier Work Phone: [facility] 03-22-2023 13:17-0400 Respiratory rate 18 /min Dr. Thelma Frazier Work Phone: [facility] 03-22-2023 13:17-0400 SaO2% (BldA) [Mass fraction] 94 % Dr. Thelma Frazier Work Phone: 1(031)285-137940 [place] [address] 03-22-2023 13:17-0400 Systolic blood pressure 147 mm[Hg] Dr. Thelma Frazier Work Phone: 1(935)680-878340 [place] [address] 03-15-2023 11:08-0400 Body mass index (BMI) [Ratio] 35.8 kg/m2 Dr. Thelma Frazier Work Phone: 2(669)115-596099 [place] [address] 03-15-2023 11:08-0400 Body temperature 97.3 [degF] Dr. Thelma Frazier Work Phone: 7(200)403-537999 [place] [address] 03-15-2023 11:08-0400 Body weight 75.[address] Thelma Frazier Work Phone: 8(958)260-260440 [place] [address] 03-15-2023 11:08-0400 Diastolic blood pressure 83 mm[Hg] Dr. Thelma Frazier Work Phone: 9(307)650-038599 [place] [address] 03-15-2023 11:08-0400 Heart rate 80 /min Dr. Thelma Frazier Work Phone: 8(916)430-197599 [place] [address] 03-15-2023 11:08-0400 Respiratory rate 18 /min Dr. Thelma Frazier Work Phone: 3(590)742-651040 [place] [address] 03-15-2023 11:08-0400 SaO2% (BldA) [Mass fraction] 95 % Dr. Thelma Frazier Work Phone: 0(368)373-337240 [place] [address] 03-15-2023 11:08-0400 Systolic blood pressure 149 mm[Hg] Dr. Thelma Frazier Work Phone: 9(464)311-775699 [place] [address] 03-02-2023 13:11-0400 Body mass index (BMI) [Ratio] 35.9 kg/m2 Dr. Thelma Frazier Work Phone: 0(462)477-157140 [place] [address] 03-02-2023 13:11-0400 Body temperature 96.8 [degF] Dr. Thelma Frazier Work Phone: [facility] 03-02-2023 13:11-0400 Body weight 75.[address] Thelma Frazier Work Phone: [facility] 03-02-2023 13:11-0400 Diastolic blood pressure 88 mm[Hg] Dr. Thelma Frazier Work Phone: [facility] 03-02-2023 13:11-0400 Heart rate 88 /min Dr. Thelma Frazier Work Phone: 7(373)109-245940 [place] [address] 03-02-2023 13:11-0400 Respiratory rate 16 /min Dr. Thelma Frazier Work Phone: [facility] 03-02-2023 13:11-0400 SaO2% (BldA) [Mass fraction] 96 % Dr. Thelma Frazier Work Phone: [facility] 03-02-2023 13:11-0400 Systolic blood pressure 152 mm[Hg] Dr. Thelma Frazier Work Phone: 9(493)212-688640 [place] [address] 02-22-2023 10:39-0400 Body mass index (BMI) [Ratio] 35.9 kg/m2 Dr. Thelma Frazier Work Phone: [facility] 02-22-2023 10:39-0400 Body temperature 98.2 [degF] Dr. Thelma Frazier Work Phone: [facility] 02-22-2023 10:39-0400 Body weight 75.[address] Thelma Frazier Work Phone: [facility] 02-22-2023 10:39-0400 Diastolic blood pressure 90 mm[Hg] Dr. Thelma Frazier Work Phone: [facility] 02-22-2023 10:39-0400 Heart rate 79 /min Dr. Thelma Frazier Work Phone: [facility] 02-22-2023 10:39-0400 Respiratory rate 18 /min Dr. Thelma Frazier Work Phone: [facility] 02-22-2023 10:39-0400 SaO2% (BldA) [Mass fraction] 94 % Dr. Thelma Frazier Work Phone: 9(137)156-949640 [place] [address] 02-22-2023 10:39-0400 Systolic blood pressure 164 mm[Hg] Dr. Thelma Frazier Work Phone: 4(067)111-206099 [place] [address] 02-16-2023 14:58-0400 Body mass index (BMI) [Ratio] 36.2 kg/m2 Dr. Thelma Frazier Work Phone: 2(031)025-846299 [place] [address] 02-16-2023 14:58-0400 Body temperature 99.3 [degF] Dr. Thelma Frazier Work Phone: 2(552)959-097199 [place] [address] 02-16-2023 14:58-0400 Body weight 75.[address] Thelma Frazier Work Phone: 7(754)985-932099 [place] [address] 02-16-2023 14:58-0400 Diastolic blood pressure 76 mm[Hg] Dr. Thelma Frazier Work Phone: 8(178)611-294799 [place] [address] 02-16-2023 14:58-0400 Heart rate 82 /min Dr. Thelma Frazier Work Phone: 7(752)272-046899 [place] [address] 02-16-2023 14:58-0400 Respiratory rate 16 /min Dr. Thelma Frazier Work Phone: 0(967)024-558540 [place] [address] 02-16-2023 14:58-0400 SaO2% (BldA) [Mass fraction] 97 % Dr. Thelma Frazier Work Phone: 1(464)167-305340 [place] [address] 02-16-2023 14:58-0400 Systolic blood pressure 141 mm[Hg] Dr. Thelma Frazier Work Phone: 6(316)077-616140 [place] [address] 11-09-2022 13:20-0400 Body mass index (BMI) [Ratio] 33.7 kg/m2 Dr. Thelma Frazier Work Phone: 0(883)444-026840 [place] [address] 08-26-2022 09:19-0400 Body height 144.8 cm Thelma Frazier DO Work Phone: [facility] 08-26-2022 09:19-0400 Body mass index (BMI) [Ratio] 33.33 kg/m2 Thelma Frazier DO Work Phone: [facility] 08-26-2022 09:19-0400 Body weight 69.85 kg Thelma Frazier DO Work Phone: [facility] 08-26-2022 09:19-0400 Diastolic blood pressure 76 mm[Hg] Thelma Frazier DO Work Phone: [facility] 08-26-2022 09:19-0400 Heart rate 68 /min Thelma Frazier DO Work Phone: [facility] 08-26-2022 09:19-0400 SaO2% (BldA) [Mass fraction] 97 % Thelma Frazier DO Work Phone: [facility] 08-26-2022 09:19-0400 Systolic blood pressure 138 mm[Hg] Thelma DO Work Phone: [facility] 06-08-2022 11:55-0500 Body height 144.[address] Thelma Frazier Work Phone: [facility] 06-08-2022 11:55-0500 Body mass index (BMI) [Ratio] 33.5 kg/m2 Dr. Thelma Frazier Work Phone: [facility] 06-08-2022 11:55-0500 Body weight 70.[address] Thelma Frazier Work Phone: [facility] 06-08-2022 10:47-0500 Body mass index (BMI) [Ratio] 33.5 kg/m2 Dr. Thelma Frazier Work Phone: [facility] 06-08-2022 10:47-0500 Body temperature 97.3 [degF] Dr. Thelma Frazier Work Phone: [facility] 06-08-2022 10:47-0500 Body weight 70.[address] Thelma Frazier Work Phone: [facility] 06-08-2022 10:47-0500 Diastolic blood pressure 79 mm[Hg] Dr. Thelma Frazier Work Phone: 9(329)939-701140 [place] [address] 06-08-2022 10:47-0500 Heart rate 63 /min Dr. Thelma Frazier Work Phone: 7(790)070-500540 [place] [address] 06-08-2022 10:47-0500 Respiratory rate 16 /min Dr. Thelma Frazier Work Phone: 5(645)388-968640 [place] [address] 06-08-2022 10:47-0500 SaO2% (BldA) [Mass fraction] 94 % Dr. Thelma Frazier Work Phone: 3(301)745-264140 [place] [address] 06-08-2022 10:47-0500 Systolic blood pressure 133 mm[Hg] Dr. Thelma Frazier Work Phone: 9(593)799-269940 [place] [address] 05-25-2022 14:52-0500 Body mass index (BMI) [Ratio] 34 kg/m2 Dr. Thelma Frazier Work Phone: 2(331)273-175440 [place] [address] 05-25-2022 14:52-0500 Body temperature 97.6 [degF] Dr. Thelma Frazier Work Phone: 0(325)847-467340 [place] [address] 05-25-2022 14:52-0500 Body weight 71.[address] Thelma Frazier Work Phone: 8(821)121-898740 [place] [address] 05-25-2022 14:52-0500 Diastolic blood pressure 87 mm[Hg] Dr. Thelma Frazier Work Phone: 5(969)847-010140 [place] [address] 05-25-2022 14:52-0500 Heart rate 97 /min Dr. Thelma Frazier Work Phone: 7(119)732-338340 [place] [address] 05-25-2022 14:52-0500 Respiratory rate 16 /min Dr. Thelma Frazier Work Phone: 7(511)608-984340 [place] [address] 05-25-2022 14:52-0500 SaO2% (BldA) [Mass fraction] 96 % Dr. Thelma Frazier Work Phone: [facility] 05-25-2022 14:52-0500 Systolic blood pressure 149 mm[Hg] Dr. Thelma Frazier Work Phone: 1(007)916-653740 [place] [address] 05-11-2022 09:32-0500 Body mass index (BMI) [Ratio] 34 kg/m2 Dr. Thelma Frazier Work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 Start: 10-30-2024 End: 10-30-2024 ambulatory [facility] Start: 10-30-[address] [facility] Start: 10-23-2024 End: 10-23-[address] [facility] Work Phone: Start: 10-23-2024 End: 10-23-[address] Thelma Frazier MD Work Phone: [facility] Work Phone: Start: 10-23-[address] [facility] Start: 10-18-2024 End: 10-18-2024 Office outpatient visit 15 minutes Maddi KOHLI DNP Work Phone: [facility] Comment on above: HTN (hypertension), benign (Primary Dx); Bilateral leg edema; Hyperuricemia Start: 10-18-2024 End: 10-18-2024 ambulatory [facility] Start: 10-11-2024 Patient encounter procedure Maddi KOHLI DNP Work Phone: [facility] Work Phone: Start: 10-11-2024 End: 10-11-2024 ambulatory [facility] Start: 10-11-2024 End: 10-11-2024 Encounter for general adult medical examination without abnormal findings [facility] Start: 10-02-[address] [facility] Start: 10-02-2024 End: 10-02-2024 Patient encounter procedure An[facility] Work Phone: Start: 10-02-2024 End: 10-02-[address] Thelma Frazier MD Work Phone: [facility] Work Phone: Start: 09-25-2024 End: 09-25-[address] [facility] Work Phone: Start: 09-25-2024 End: 09-25-2024 ambulatory [facility] Start: 09-19-2024 End: 09-19-2024 Patient encounter procedure Anika Smith VISUAL MERCHANDISER-C -[facility] Work Phone: Start: 09-19-2024 End: 09-19-2024 ambulatory [facility] Start: 09-11-2024 ambulatory [facility] :[facility] Start: 08-28-2024 End: 08-28-2024 Patient encounter procedure Anika Smith [employer]CH[employer]ER-C -[facility] Work Phone: Start: 08-28-2024 End: 08-28-2024 ambulatory [facility] Start: 08-23-2024 End: 08-23-2024 Office outpatient visit 25 minutes Ryan Couch MD Work Phone: [facility] Comment on above: Coronary artery calc ification (Primary Dx); Shortness of breath; Cardiac murmur, unspecified; Leg edema Start: 08-23-2024 End: 08-23-2024 [facility] Start: 08-13-2024 End: 08-13-2024 Patient encounter procedure Shira Millard ELECTRICAL PROSPECTING ENGINEER-PROGRAM PRODUCTION SPECIALIST Work Phone: [facility] Comment on above: Acute bacterial sinu sitis (Primary Dx) Start: 08-13-2024 End: 08-13-2024 ambulatory [facility] Start: 07-31-[address] Floyd Leyva MD -[facility] Start: 07-31-2024 End: 07-31-2024 Patient encounter procedure Anika PiñaSarah VISUAL MERCHANDISER-C -[facility] Work Phone: Start: 07-31-2024 End: 07-31-2024 ambulatory [facility] Start: 07-17-2024 End: 07-17-[address] Thelma Frazier MD Work Phone: [facility] Work Phone: Start: 07-17-2024 End: 07-17-[address] Yusuf Leyva MD [facility] Work Phone: Start: 07-17-2024 End: 07-17-2024 [facility] Start: 07-03-2024 End: 07-03-2024 Patient encounter procedure Anika ROSAS [facility] Work Phone: Start: 07-03-2024 End: 07-03-2024 ambulatory [facility] Start: 06-26-2024 End: 06-26-2024 Subsequent hospital visit by physician [facility] Comment on above: Community acquired p neumonia of left lower lobe of lung Start: 06-26-2024 End: 06-26-2024 ambulatory [facility] Start: 06-19-2024 End: 06-19-[address] Yusuf Leyva MD [facility] Work Phone: Start: 06-19-2024 End: 06-19-2024 ambulatory [facility] Start: 06-18-2024 End: 06-18-2024 Office outpatient visit 15 minutes Thelma S Roselle DO Work Phone: [facility] Comment on above: Community acquired p neumonia of left lower lobe of lung (Primary Dx) Start: 06-18-2024 End: 06-18-2024 ambulatory [facility] Start: 06-12-2024 End: 06-12-2024 Subsequent hospital visit by physician [facility] Comment on above: Community acquired p neumonia, unspecified laterality Start: 06-12-2024 End: 06-12-2024 ambulatory [facility] Start: 06-12-2024 End: 06-12-2024 Office outpatient visit 15 minutes Thelma S Roselle DO Work Phone: [facility] Comment on above: Community acquired p neumonia, unspecified laterality (Primary Dx) Start: 06-12-2024 End: 06-12-2024 ambulatory [facility] Start: 06-10-2024 [facility] Start: 06-10-2024 End: 06-10-2024 Subsequent hospital visit by physician Madeline Mueller CNP Work Phone: [facility] Comment on above: Arrived Start: 06-10-2024 ambulatory [facility] Start: 06-10-2024 End: 06-10-2024 Office outpatient new 45 minutes Madeline Mueller PROGRAM PRODUCTION SPECIALIST Work Phone: [facility] Comment on above: Sore throat (Primary Dx); Acute cough Start: 06-06-2024 End: 06-06-2024 Office outpatient visit 25 minutes [facility] Work Phone: [facility] Comment on above: Influenza A (Primary Dx); Multiple myeloma in relapse (Multi); Acute cough; Encounter for screening mammogram for malignant neoplasm of breast; Anxiety Start: 06-06-2024 End: 06-06-2024 ambulatory [facility] Start: 06-05-2024 End: 06-05-2024 Patient encounter procedure Anika ROSAS -[facility] Work Phone: Start: 06-05-2024 End: 06-05-2024 ambulatory [facility] Start: 05-31-2024 End: 06-01-2024 ambulatory CLARKE DUNBAR [facility] Start: 05-31-2024 End: 05-31-2024 Subsequent hospital visit by physician Salinas Nguyen [facility] Comment on above: Arrived Start: 05-31-2024 End: 05-31-2024 Emergency department patient visit [facility] Emergency [facility] Comment on above: Influenza A (Primary Dx); Acute cough Start: 05-08-2024 End: 05-08-[address] Yusuf Leyva MD -[facility] Work Phone: Start: 05-08-2024 End: 05-08-2024 ambulatory [facility] Start: 05-08-2024 ambulatory [facility] :[facility] Start: 04-18-2024 End: 04-18-2024 Office outpatient new 45 minutes Pawan RAMOS-C Work Phone: [facility] Comment on above: Left otitis media, u nspecified otitis media type (Primary Dx); Upper respiratory tract infection, unspecified type Start: 04-18-2024 End: 04-18-2024 ambulatory [facility] Start: 04-12-2024 End: 04-12-2024 Office outpatient visit 25 minutes Thelma S Roselle DO Work Phone: [facility] Comment on above: Prediabetes (Primary Dx); Hypertriglyceridemia; HTN (hypertension), benign; Gastroesophageal reflux disease without esophagitis Start: 04-12-2024 End: 04-12-2024 ambulatory [facility] Start: 04-10-2024 End: 04-10-2024 Patient encounter procedure Anika ROSAS -[facility] Work Phone: Start: 04-10-2024 End: 04-10-2024 ambulatory [facility] Start: 04-06-2024 End: 04-06-2024 ambulatory [facility] Start: 01-30-2024 End: 01-30-2024 Office outpatient visit 15 minutes Paulo Barakat MD, PhD Work Phone: Division of Hematology & Oncology at [facility] Comment on above: Multiple myeloma, re mission status unspecified (Primary Dx) Start: 01-30-2024 ambulatory [facility] :[facility] Start: 12-06-2023 End: 12-06-2023 Subsequent hospital visit by physician Salinas X-Ray 1 [facility] Comment on above: Bilateral hip pain Start: 12-06-2023 End: 12-06-2023 Office outpatient visit 15 minutes Thelma S Roselle DO Work Phone: [facility] Comment on above: Bilateral hip pain ( Primary Dx) Start: 10-24-2023 End: 10-24-2023 Office outpatient visit 25 minutes Paulo Barakat MD, PhD Work Phone: Division of Hematology & Oncology at [facility] Comment on above: Multiple myeloma, re mission status unspecified (Primary Dx) Start: 10-13-2023 End: 10-13-2023 Office outpatient visit 15 minutes Maddi Garcia ELECTRICAL PROSPECTING ENGINEER-PROGRAM PRODUCTION SPECIALIST, DNP Work Phone: [facility] Comment on above: HTN (hypertension), benign (Primary Dx); Hypertriglyceridemia; Hyperuricemia; Bilateral leg edema Start: 10-06-2023 End: 10-06-2023 Office outpatient visit 25 minutes ThelmaNarrative Work Phone: [facility] Comment on above: Medicare annual well ness visit, subsequent (Primary Dx); HTN (hypertension), benign; Prediabetes; Hypertriglyceridemia Start: 10-06-2023 End: 10-06-2023 Patient encounter procedure [employer] Work Phone: [facility] Work Phone: Start: 08-22-2023 End: 08-22-2023 Office outpatient visit 25 minutes Ryan Couch MD Work Phone: [facility] Comment on above: Coronary artery calc ification (Primary Dx) Start: 08-18-2023 End: 08-18-2023 Subsequent hospital visit by physician Salinas Guerra 1 [facility] Comment on above: Shortness of breath Shortness of breath; Cardiac murmur, unspecified Start: 08-03-2023 End: 08-03-2023 Subsequent hospital visit by physician Salinas Hinton 1 [facility] Comment on above: Leg edema Start: 07-28-2023 End: 07-28-2023 Office outpatient new 45 minutes Ryan Couch MD Work Phone: [facility] Comment on above: Shortness of breath (Primary Dx); Leg edema Start: 07-21-2023 End: 07-21-2023 Office outpatient visit 15 minutes Thelma Frazier [employer] Work Phone: [facility] Comment on above: HTN (hypertension), benign (Primary Dx); Spinal enthesopathy, lumbar region (CMS/HCC); Bilateral leg edema Start: 07-09-2023 End: 07-09-2023 Subsequent hospital visit by physician Salinas Hoffv1 [employer] [facility] Comment on above: Arrived Start: 07-09-2023 End: 07-09-2023 Emergency department patient visit Thelma Roselle [employer] Phone: [facility] Comment on above: Pneumonia due to COV ID-19 virus (Primary Dx); Peripheral edema Start: 06-21-2023 End: 06-21-[address] Thelma Frazier Work Phone: [facility] Work Phone: Start: 06-21-[address] Stephanie ruggiero [employer] Phone: [facility] Start: 06-21-2023 End: 06-21-[address] Thelma Frazier Work Phone: [facility] Work Phone: Start: 06-14-2023 End: 06-14-[address] Thelma Frazier Work Phone: [facility] Work Phone: Start: 06-08-2023 End: 06-08-2023 Office outpatient visit 15 minutes Thelma Frazier [employer] Work Phone: [facility] Comment on above: HTN (hypertension), benign (Primary Dx); Multiple myeloma not having achieved remission (CMS/HCC); Spinal enthesopathy, lumbar region (CMS/HCC); Obesity, morbid (CMS/HCC); Encounter for screening mammogram for malignant neoplasm of breast Start: 06-07-[address] Kimbe rly Roselle Work Phone: [facility] Start: 06-07-2023 End: 06-07-[address] Thelma Frazier Work Phone: [facility] Work Phone: Start: 06-06-2023 End: 06-06-[address] Thelma Frazier Work Phone: [facility] Work Phone: Start: 06-06-2023 End: 06-06-[address] Thelma Frazier Work Phone: [facility] Work Phone: Start: 05-24-2023 End: 05-24-[address] Thelma Frazier Work Phone: [facility] Work Phone: Start: 05-17-2023 End: 05-17-[address] Thelma Frazier Work Phone: [facility] Work Phone: Start: 05-10-2023 End: 05-10-[address] Thelma Frazier Work Phone: [facility] Work Phone: Start: 04-26-2023 End: 04-26-[address] Thelma Frazier Work Phone: [facility] Work Phone: Start: 04-19-2023 End: 04-19-[address] Thelma Frazier Work Phone: [facility] Work Phone: Start: 04-12-2023 End: 04-12-[address] Thelma Frazier Work Phone: [facility] Work Phone: Start: 03-29-2023 End: 03-29-[address] Thel[facility] Fraz[facility] Work Phone: Start: 03-24-2023 End: 03-24-2023 Office outpatient visit 25 minutes Thelma Frazier DO Work Phone: [facility] Comment on above: Spinal enthesopathy, lumbar region (CMS/HCC) (Primary Dx); HTN (hypertension), benign; Gastroesophageal reflux disease without esophagitis; Hypertriglyceridemia; Obesity, morbid (CMS/HCC); Prediabetes; Impacted cerumen of right ear Start: 03-22-2023 End: 03-22-[address] Thelma Frazier Work Phone: [facility] Work Phone: Start: 03-15-2023 End: 03-15-[address] Thel[facility] Fraz[facility] Work Phone: [facility] Work Phone: Start: 03-02-2023 End: 03-02-[address] Thelma Frazier Work [facility] Work Phone: Start: 02-22-2023 End: 02-22-[address] Thelma Frazier Work Phone: [facility] Work Phone: Start: 02-16-2023 End: 02-16-[address] Thelma Frazier Work Phone: [facility] Work Phone: Start: 09-23-2022 SONIA Cervantes al Work Phone: [facility] Work Phone: Start: 08-26-2022 End: 08-26-2022 Office outpatient visit 25 minutes Thelma Frazier DO Work Phone: [facility] Comment on above: Medicare annual well ness visit, initial (Primary Dx); HTN (hypertension), benign; Multiple myeloma not having achieved remission (CMS/HCC); Gastroesophageal reflux disease without esophagitis; Hypertriglyceridemia; Prediabetes; Obesity (BMI 30.0-34.9) Start: 08-26-2022 End: 01-31-2025 Patient encounter procedure Thelma Frazier DO Work Phone: [facility] Work Phone: Start: 06-08-[address] Stephanie Frazier Work Phone: [facility] Start: 06-08-2022 End: 06-08-[address] Thelma Frazier Work Phone: [facility] Work Phone: Start: 06-08-2022 End: 06-08-2022 Patient encounter procedure Thelma Frazier Work Phone: [facility] Start: 05-25-2022 End: 05-25-[address] Thelma Frazier Work Phone: [facility] Start: 05-11-2022 End: 05-11-[address] Thelma Frazier Work Phone: [facility] Start: 04-27-2022 End: 04-27-[address] Thelma Frazier Work Phone: [facility] Start: 04-13-2022 End: 04-13-[address] Thelma Frazier Work Phone: [facility] Start: 03-31-2022 End: 03-31-[address] Thelma Frazier Work Phone: [facility] Start: 03-16-2022 End: 03-16-[address] Thelma Frazier Work Phone: [facility] Start: 03-02-2022 End: 03-02-[address] Thelma Frazier Work Phone: [facility] Start: 02-16-2022 End: 02-16-2022 Office outpatient visit 25 minutes Paulo Barakat MD, PhD Work Phone: Division of Hematology & Oncology Comment on above: Multiple myeloma, re mission status unspecified Start: 02-04-2022 EPV, Provider: Thelma Frazier, Status: Pen, Time: 1:40 PM Thelma Frazier Work Phone: [facility] Work Phone: Start: 02-04-2022 Office outpatient vi sit 15 minutes Thelma S Roselle Work Phone: -[facility] Work Phone: Start: 02-02-2022 Chart Update Thelma laboy Work Phone: -[facility] [facility] Work Phone: Start: 12-21-2021 Chart Update Thelma laboy Work Phone: -[facility] Work Phone: Start: 12-21-2021 ambulatory Thelma Frazier Facility :[id number] Start: 11-16-2021 ambulatory Thelma Roselle Facility :[id number] Start: 11-16-2021 Office outpatient vi sit 15 minutes Thelma S Roselle Work Phone: [facility] Work Phone: Start: 11-03-2021 Office outpatient vi sit 15 minutes Thelma S Roselle Work Phone: [facility] Work Phone: Start: 10-13-2021 End: 10-13-2021 Office outpatient visit 25 minutes Paulo Barakat MD, PhD Work Phone: Division of Hematology & Oncology Comment on above: Multiple myeloma, re mission status unspecified; Neoplastic malignant related fatigue; Body mass index (BMI) 30.0-30.9, adult Start: 10-01-2021 Office outpatient vi sit 15 minutes Thelma Frazier Work Phone: [facility] 3 DO Work Phone: Start: 09-14-[address] Robina santana [facility] Facility:[id number] Start: 08-25-2021 Chart Update Thelma Anusha Billy laboy Work Phone: [facility] Work Phone: Start: 08-24-2021 Office outpatient vi sit 15 minutes Thelma Tavares Roselle Work Phone: [facility] Work Phone: Start: 08-22-2021 End: 08-22-2021 Emergency department patient visit Ned Wilkes [facility] Emergency 09 Start: 07-31-2021 Patient encounter procedure Thelma Tavares Roselle Work Phone: [facility] Work Phone: Start: 07-23-2021 Patient encounter procedure Thelma Tavares Roselle Work Phone: [facility] Work Phone: Start: 07-20-2021 Patient encounter procedure Thelma Tavares Roselle Work Phone: [facility] Work Phone: Start: 07-16-2021 Patient encounter procedure Thelma Tavares Roselle Work Phone: [facility] Work Phone: Start: 07-13-2021 Patient encounter procedure Thelma S Roselle Work Phone: [facility] Work Phone: Start: 07-09-2021 Patient encounter procedure Thelma S Roselle Work Phone: [facility] Work Phone: Start: 07-06-2021 Patient encounter procedure Thelma S Roselle Work Phone: [facility] Work Phone: Start: 07-02-2021 Office outpatient vi sit 15 minutes Thelma S Roselle Work Phone: [facility] 3 DO Work Phone: Start: 06-29-2021 Adv care pln tlkd & alt dcsn maker docd Thelma S Roselle Work Phone: [facility] Work Phone: Start: 05-27-2021 [facility] Provider: Keyana Cloud, Status: Pen, Time: 8:30 AM Thelma S Roselle Work Phone: [facility] Work Phone: Start: 05-26-2021 Chart Update Thelma S Billy al Work Phone: [facility] Work Phone: Start: 05-21-2021 Office consultation new/estab patient 40 min Thelma S Roselle Work Phone: [facility] Work Phone: Start: 04-22-2021 Office outpatient vi sit 15 minutes Thelma S Roselle Work Phone: [facility] Work Phone: Start: 04-09-2021 Chart Update Thelma S Billy al Work Phone: [facility] Jared 3 DO Work Phone: Start: 04-08-2021 Chart Update Thelma S Billy al Work Phone: [facility] Jared 3 DO Work Phone: Start: 03-17-2021 FUV, Provider: Jeet Garcia, Status: Pen, Time: 10:00 AM Thelma S Roselle Work Phone: [facility] Jared 3 DO Work Phone: Start: 03-17-2021 Office outpatient vi sit 25 minutes Thelma S Roselle Work Phone: [facility] Jared 3 DO Work Phone: Start: 03-16-2021 Chart Update Thelma S Billy al Work Phone: [facility] 3 DO Work Phone: Start: 02-17-2021 Chart Update Thelma S Billy al Work Phone: -[facility] [facility] Work Phone: Start: 02-17-2021 Patient encounter procedure Thelma S Roselle Work Phone: -[facility] [facility] Work Phone: Start: 01-09-2021 EPV, Provider: Thelma Frazier, Status: Pen, Time: 10:40 AM Thelma S Roselle Work Phone: -[facility] [facility] Work Phone: Start: 01-09-2021 Office outpatient vi sit 25 minutes Thelma S Roselle Work Phone: -[facility] Work Phone: Start: 01-07-2021 Chart Update Thelma S Billy al Work Phone: -[facility] [facility] Work Phone: Start: 01-05-2021 Telephone encounter Thelma Frazier Work Phone: [facility] 3 DO Work Phone: Start: 06-18-2020 Patient encounter procedure Maddi Garcia -[facility] Work Phone: Start: 06-17-2020 Patient encounter procedure Maddi Garcia -[facility] Work Phone: Start: 03-17-2020 Patient encounter procedure Maddi Garcia -[facility] Work Phone: Start: 02-13-2020 Patient encounter procedure Maddi Garcia -[facility] Work Phone: Start: 02-11-2020 Patient encounter procedure Maddi Garcia -[facility] Work Phone: Start: 12-03-2019 Patient encounter procedure Maddi Garcia -[facility] Work Phone: Start: 11-19-2019 Patient encounter procedure Maddi Garcia [facility] [facility] Work Phone: Start: 11-09-2019 Patient encounter procedure [facility] Work Phone: Start: 10-12-2019 Patient encounter procedure Thelma Frazier [facility] Work Phone: Start: 10-04-2019 Patient encounter procedure Thelma Frazier [facility] Work Phone: Start: 09-28-2019 Patient encounter procedure Thelma Frazier [facility] Work Phone: Start: 09-03-2019 Patient encounter procedure Thelma Frazier [facility] Work Phone: Start: 08-08-2019 Patient encounter procedure Thelma Frazier [facility] Work Phone: Start: 07-17-2019 Patient encounter procedure Thelma Frazier [facility] Work Phone: Start: 05-11-2019 Patient encounter procedure Thelma Frazier [facility] Work Phone: Start: 05-07-2019 Patient encounter procedure Thelma Frazier [facility] Work Phone: Patient encounter procedure Thelma Frazier Work Phone: [facility] Jared 3 DO Work Phone: Procedures Date Procedure Procedure Detail Performing Clinician Start: 04-03-2025 Arthrocentesis aspir &/inj major jt/bursa w/us Robina Pendleton MD Work Phone: Start: 04-03-2025 US Abdomen Robina bernard MD Work Phone: Start: 04-02-2025 US Abdomen Robina bernard MD Work Phone: Start: 02-19-[address] Thelma Frazier MD Work Phone: Start: 02-08-2025 Ct head/brain w/cont rast material Thelma Tavares DO Work Phone: Start: 01-22-2025 Albumin/Globulin ratio Dr. Thelma Frazier MD Work Phone: Start: 01-22-[address] Thelma Frazier MD Work Phone: Start: 01-22-[address] Thelma Frazier MD Work Phone: Comment on above: Result confirmed on concentration. Start: 01-22-2025 Urine lambda light c tee measurement Dr. Thelma Frazier MD Work Phone: Start: 12-25-2024 Albumin/Globulin ratio Dr. Thelma Frazier MD Work Phone: Start: 12-25-[address] Thelma Frazier MD Work Phone: Start: 12-25-[address] Thelma Frazier MD Work Phone: Comment on above: Result confirmed on concentration. Start: 12-25-2024 Urine lambda light c tee measurement Dr. Thelma Frazier MD Work Phone: Start: 11-27-2024 Albumin/Globulin ratio Dr. Thelma Frazier MD Work Phone: Start: 11-27-[address] Thelma Frazier MD Work Phone: Start: 11-27-[address] M [address] Thelma Frazier MD Work Phone: Comment on above: Result confirmed on concentration. Start: 11-27-2024 Urine lambda light c tee measurement Dr. Thelma Frazier MD Work Phone: Start: 10-30-2024 Albumin/Globulin ratio Dr. Thelma Frazier MD Work Phone: Start: 10-30-[address] Thelma Frazier MD Work Phone: Start: 10-30-20[address] M [address] Thelma Frazier MD Work Phone: Comment on above: Result confirmed on concentration. Start: 10-30-2024 Urine lambda light c tee measurement Dr. Thelma Frazier MD Work Phone: Start: 10-23-[address] Thelma Frazier MD Work Phone: Start: 10-10-2024 Lipid 1996 panel - S oscar or Plasma Maddi Maged ELECTRICAL PROSPECTING ENGINEER-PROGRAM PRODUCTION SPECIALIST, DNP Work Phone: Start: 10-02-2024 Albumin/Globulin ratio Dr. Thelma Frazier MD Work Phone: Start: 10-02-[address] Thelma Frazier MD Work Phone: Start: 10-02-2024 [address] M [address] Dr[address] Thelma Frazier MD Work Phone: Comment on above: Result confirmed on concentration. Start: 10-02-2024 Urine lambda light c tee measurement Dr. Thelma Frazier MD Work Phone: Start: 08-28-2024 Albumin/Globulin ratio Dr. Thelma Frazier MD Work Phone: Start: 08-28-2024 [address] M measurement Dr. Thelma Frazier MD Work Phone: Comment on above: Result confirmed on concentration. Start: 08-28-2024 Urine lambda light c tee measurement Dr. Thelma Frazier MD Work Phone: Start: 08-23-2024 Follow-up visit Follow-up RYAN COUCH Start: 07-31-2024 Serum inorganic phos phate measurement Dr. Thelma Frazier MD Work Phone: Start: 07-17-2024 End: 07-17-[address] Thelma Farooq Work Phone: Start: 07-03-2024 Measurement of renal function Dr. Thelma Frazier MD Work Phone: Comment on above: GFR Calc Start: 06-10-2024 Radiologic exam ches t 2 views DNA [place] PROGRAM PRODUCTION SPECIALIST Work Phone: Start: 06-10-2024 SARS-CoV-2 (COVID-19 ) RNA [Presence] in Unspecified specimen by MARY JO with probe detection [facility] [place] Work Phone: Start: 05-31-2024 Radiologic exam ches t 2 views Clarke Dunbar DO Work Phone: Start: 05-31-2024 Influenza virus A an d B RNA [Identifier] in Unspecified specimen by MARY JO with probe detection Clarke Dunbar DO Work Phone: Start: 05-31-2024 SARS-CoV-2 (COVID-19 ) RNA [Presence] in Respiratory specimen by MARY JO with probe detection Clarke Dunbar DO Work Phone: Start: 05-31-2024 Ecg routine ecg w/le ast 12 lds trcg only w/o i&r Clarke Dunbar DO Work Phone: Start: 05-08-2024 Total iron binding c apacity measurement Dr. Thelma Frazier MD Work Phone: Start: 10-04-2023 Lipid 1996 panel - S oscar or Plasma Thelma Frazier DO Work Phone: Start: 08-18-2023 Ct heart no contrast quant eval coronry calcium Ryan Couch MD Work Phone: Start: 08-18-2023 Echo tthrc r-t 2d w/ wom-mode compl spec&colr d Ryan Couch MD Work Phone: Start: 08-03-2023 Dup-scan xtr veins c omplete bilateral study Ryan Couch MD Work Phone: Start: 07-09-2023 Ecg routine ecg w/le ast 12 lds trcg only w/o i&r Krista Latham PA-C Work Phone: Start: 07-09-2023 Assay of troponin quantitative Krista Latham PA-C Work Phone: Start: 07-09-2023 Urnls dip stick/tabl et rgnt auto w/o microscopy Kristanadine Bowero PA-C Work Phone: Start: 07-09-2023 Ct abdomen & pelvis w/contrast material Krista Bowero PA-C Work Phone: Start: 07-09-2023 Comprehensive metabo lic panel Krista Bowero PA-C Work Phone: Start: 07-09-2023 Radiologic exam ches t single view Krista Latham PA-C Work Phone: Start: 06-21-2023 End: 06-21-[address] Thelma Frazier Work Phone: Start: 06-06-2023 MRI of lumbar spine with contrast Dr. Thelma Frazier Work Phone: Start: 06-06-2023 MRI of thoracic spin e with contrast Dr. Thelma Frazier Work Phone: Start: 05-10-2023 Plain x-ray of pelvi s and lower extremity Dr. Thelma Frazier Work Phone: Start: 05-10-2023 X-ray of lumbosacral spine Dr. Thelma Frazier Work Phone: Start: 08-25-2022 Lipid 1996 panel - S oscar or Plasma Thelma Frazier DO Work Phone: Start: 06-08-2022 End: 06-08-[address] Thelma Frazier Work Phone: Start: 05-27-2021 End: 05-27-2021 Colonoscopy Thelma Tavares Roselle Work Phone: Start: 06-17-2020 Basic metabolic 1998 panel - Serum or Plasma Maddi Garcia Start: 11-09-2019 Basic metabolic 1998 panel - Serum or Plasma Thelma Frazier Start: 11-09-2019 Lipid panel Thelma alejandro Start: 09-03-2019 Assay of thyroid sti mulating hormone tsh Thelma Frazier Start: 09-03-2019 Pulse Oximetry, Nocturnal Thelma Frazier Biopsy of breast Thelma Burroughs yal Cholecystectomy Thelma Cervantes al Dilation and curettage Stephanie Tavares Roselle Work Phone: Ligation of fallopian tube K inés Frazier Plan of Treatment Date Care Activity Detail Author Start: 05-27-2031 Screening for malignant neoplasm of colon [facility] Start: 10-10-2029 Lipid panel Lipid Panel [facility] Start: 10-03-2028 Lipid panel Lipid Panel [facility] Start: 08-26-2027 Lipid panel Lipid Panel [facility] Start: 10-18-2025 End: 10-18-2025 Comprehensive metabolic 2000 panel - Serum or Plasma Comprehensive metabolic panel Lab Routine HTN (hypertension), benign Expected: 10/18/2025 (Approximate), Expires: 10/18/2025 [facility] Service Area Work Phone: Comment on above: Expected: 10/18/2025 (Approximate), Expires: 10/18/2025 Start: 10-17-2025 End: 10-17-2025 Patient encounter procedure 10/17/2025 10:00 AM EDT Office Visit [facility] Office [facility] [address] [place] [phone] Maddi Garcia, ELECTRICAL PROSPECTING ENGINEER-PROGRAM PRODUCTION SPECIALIST, DNP [address] [place] [phone] [facility] Office [facility] Start: 10-12-2025 Medicare Annual Wellness Visit Medicare Annual Wellness Visit (AWV) [facility] Start: 10-10-2025 Hemoglobin A1c measurement Diabetes: Hemoglobin A1C [facility] Start: 08-22-2025 End: 08-22-2025 Patient encounter procedure 08/22/2025 1:00 PM EDT Office Visit [facility] [address] [place] [phone] Ryan Grier MD [address], [address] [place] [address] [facility] Start: 07-31-2025 End: 07-31-2025 Patient encounter procedure 07/31/2025 11:00 AM EDT Office Visit [facility] [address] [place] [phone] Robina Pendleton MD [address] [place] [phone] [facility] Start: 07-17-2025 Screening for malignant neoplasm of breast Mammogram [facility] Start: 06-11-2025 End: 06-11-2025 Telemedicine consultation with patient 06/11/2025 3:40 PM EST Telemedicine Division of Hematology & Oncology at [facility] [address] [place] [address] Paulo Barakat Jr., MD, PhD [address]th [place] [address] Division of Hematology & Oncology at [facility] Start: 06-11-2025 End: 03-11-2026 Hemoglobin A1c/Hemoglobin.total in Blood Hemoglobin A1C Lab Routine Prediabetes Expected: 06/11/2025 (Approximate), Expires: 03/11/2026 [facility] Service Area Work Phone: Comment on above: Expected: 06/11/2025 (Approximate), Expires: 03/11/2026 Start: 06-10-2025 End: 06-10-2025 Patient encounter procedure 06/10/2025 3:00 PM EST Office Visit [place] [address] [phone] Thelma Frazier S, DO [address] [address] [facility] Start: 05-14-2025 End: 05-14-2025 Patient encounter procedure 05/14/2025 10:15 AM EST Office Visit [facility] [address] [place] [phone] Robina Pendleton MD [address] [place] [address] [facility] Start: 04-11-2025 End: 04-11-2025 Patient encounter procedure 04/11/2025 10:00 AM EST Office Visit [place] [address] [phone] Thelma Frazier S, DO [address] [address] [facility] Start: 04-06-2025 Hemoglobin A1c measurement Diabetes: Hemoglobin A1C [facility] Start: 04-03-2025 End: 04-03-2025 Patient encounter procedure 04/03/2025 11:30 AM EST Office Visit [facility] [address] [place] [address] Robina Pendleton MD [address] [place] [address] [facility] Start: 04-02-2025 End: 04-02-2026 XR Knee - right 4 Views XR knee right 4+ views Imaging Routine Right knee pain, unspecified chronicity Expected: 04/02/2025 (Approximate), Expires: 04/02/2026 [facility] Service Area Work Phone: Comment on above: Expected: 04/02/2025 (Approximate), Expires: 04/02/2026 Start: 03-31-2025 End: 03-31-2026 XR Hand - bilateral 3 Views XR hand 3+ views bilateral Imaging Routine Bilateral hand pain Expected: 03/31/2025 (Approximate), Expires: 03/31/2026 [facility] Service Area Work Phone: Comment on above: Expected: 03/31/2025 (Approximate), Expires: 03/31/2026 Start: 2025 RSV High Risk: (Elderly (60+) or Population) (1 - 1-dose 75+ series) RSV High Risk: (Elderly (60+) or Population) (1 - 1-dose 75+ series) [facility] Start: 02-19-2025 Serum immunofixation [facility] Start: 02-19-2025 [facility] Start: 02-14-2025 End: 02-14-2026 EMG & nerve conduction EMG & nerve conduction Neurology Routine Numbness and tingling of both upper extremities Cervical spinal stenosis Foraminal stenosis of cervical region Expected: 02/14/2025 (Approximate), Expires: 02/14/2026 [facility] Service Area Work Phone: Comment on above: Expected: 02/14/2025 (Approximate), Expires: 02/14/2026 Start: 02-14-2025 End: 02-14-2025 Patient encounter procedure 02/14/2025 8:20 AM EDT Office Visit [place] [phone] [phone] [place] Thelma Tavares DO [address] [address] [facility] Start: 01-31-2025 End: 01-31-2026 CT Cervical spine W contrast IV CT cervical spine w IV contrast Imaging Routine Neck pain Expected: 01/31/2025, Expires: 01/31/[address] [facility] Work Phone: Comment on above: Expected: 01/31/2025 , Expires: 01/31/2026 Start: 01-31-2025 End: 01-31-2026 CT Head WO and W contrast IV CT head w and wo IV contrast Imaging Routine Altered mental status, unspecified altered mental status type Expected: 01/31/2025 (Approximate), Expires: 01/31/2026 [facility] Service Area Work Phone: Comment on above: Expected: 01/31/2025 (Approximate), Expires: 01/31/2026 Start: 01-22-2025 Serum immunofixation [facility] Start: 01-22-2025 [facility] Start: 01-21-2025 Influenza vaccination [facility] Start: 12-25-2024 Serum immunofixation [facility] Start: 12-25-2024 [facility] Start: 12-21-2024 Influenza vaccination Influenza Vacc ine (#1) [facility] Start: 11-27-2024 Serum immunofixation [facility] Start: 11-27-2024 [facility] Start: 11-20-2024 [facility] Start: 10-30-2024 Serum immunofixation [facility] Start: 10-30-2024 [facility] Start: 10-23-2024 [facility] Start: 10-18-2024 End: 10-18-2024 Patient encounter procedure 10/18/2024 10:00 AM EDT Office Visit [facility] Medical Office Building [address] [facility] 2nd [place] [address] Maddi Garcia, ELECTRICAL PROSPECTING ENGINEER-PROGRAM PRODUCTION SPECIALIST, DNP 350 [facility] 3 [place] [address] [facility] Medical Office Building Start: 10-11-2024 End: 10-11-2024 Patient encounter procedure 10/11/2024 1:40 PM EDT Office Visit [place] [address] [phone] RoselleThelma S, DO [address] [facility] [address] [place] [address] [facility] Start: 10-11-2024 End: 10-11-2024 Patient encounter procedure 10/11/2024 9:20 AM EDT Office Visit [place] [address] [phone] Thelma Frazier S, DO [address] [address] [facility] Start: 10-10-2024 End: 04-12-2025 Hemoglobin A1c/Hemoglobin.total in Blood Hemoglobin A1C Lab Routine Prediabetes Expected: 10/10/2024 (Approximate), Expires: 04/12/2025 [facility] Service Area Work Phone: Comment on above: Expected: 10/10/2024 (Approximate), Expires: 04/12/2025 Start: 10-10-2024 End: 04-12-2025 Lipid 1996 panel - Serum or Plasma Lipid Panel Lab Routine Hypertriglyceridemia Expected: 10/10/2024 (Approximate), Expires: 04/12/[address] [facility] Work Phone: Comment on above: Expected: 10/10/2024 (Approximate), Expires: 04/12/2025 Start: 10-06-2024 Medicare Annual Wellness Visit Medicare Annual Wellness Visit (AWV) [facility] Start: 10-03-2024 Hemoglobin A1c measurement Diabetes: Hemoglobin A1C [facility] Start: 10-02-2024 [facility] Start: 09-25-2024 Patient referral [facility] Work Phone: Start: 09-11-2024 End: 09-11-2024 Telemedicine consultation with patient 09/11/2024 3:20 PM EDT Telemedicine Division of Hematology & Oncology at [facility] [address] [place] [phone] Paulo Barakat Jr., MD, PhD [address] [place] [address] Division of Hematology & Oncology at [facility] Start: 08-23-2024 End: 08-23-2024 Patient encounter procedure 08/23/2024 1:00 PM EDT Office Visit [facility] Medical Office Building [address] [place] [phone] Ryan Grier MD [address], [facility] [address] [place] [phone] [facility] Medical Office Building Start: 07-31-2024 Serum immunofixation [facility] Start: 06-25-2024 End: 06-18-2025 XR Chest 2 Views XR chest 2 views Imaging Routine Community acquired pneumonia of left lower lobe of lung Expected: 06/25/2024 (Approximate), Expires: 06/18/2025 [facility] Service Area Work Phone: Comment on above: Expected: 06/25/2024 (Approximate), Expires: 06/18/2025 Start: 06-21-2024 Screening for malignant neoplasm of breast Mammogram [facility] Start: 06-12-2024 End: 06-12-2025 XR Chest 2 Views [facility] Service Area Work Phone: Comment on above: Expected: 06/12/2024 , Expires: 06/12/2025 Once for 1 Occurrenc es starting 06/12/2024 until 06/12/2024 Start: 06-06-2024 End: 08-04-2025 DBT Breast - bilateral BI mammo bilateral screening tomosynthesis Imaging Routine Encounter for screening mammogram for malignant neoplasm of breast Expected: 06/06/2024 (Approximate), Expires: 08/04/2025 [facility] Area Work Phone: Comment on above: Expected: 06/06/2024 (Approximate), Expires: 08/04/2025 Start: 05-08-2024 End: 05-08-2024 Telemedicine consultation with patient 05/08/2024 2:40 PM EST Telemedicine Division of Hematology & Oncology at [facility] [address] [place] [address] Paulo Barakat Jr., MD, PhD [address] [place] [address] Division of Hematology & Oncology at [facility] Start: 04-07-2024 End: 10-05-2024 Hemoglobin A1c/Hemoglobin.total in Blood Hemoglobin A1C Lab Routine Prediabetes Expected: 04/07/2024 (Approximate), Expires: 10/05/2024 [facility] Area Work Phone: Comment on above: Expected: 04/07/2024 (Approximate), Expires: 10/05/2024 Start: 04-05-2024 End: 04-05-2024 Patient encounter procedure [facility] Start: 03-21-2024 Hemoglobin A1c measurement Diabetes: Hemoglobin A1C [facility] Start: 01-22-2024 Influenza vaccination [facility] Start: 12-22-2023 Screening for osteoporosis Bone Density Scan [facility] Start: 12-06-2023 End: 12-05-2024 XR Pelvis AP and Hip - bilateral GE 2 Views [facility] Service Area Work Phone: Comment on above: Expected: 12/06/2023 , Expires: 12/05/2024 Once for 1 Occurrenc es starting 12/06/2023 until 12/06/2023 Start: 11-29-2023 End: 11-29-2023 Telemedicine consultation with patient 11/29/2023 3:30 PM EDT Telemedicine Division of Hematology & Oncology at [facility] [address] [place] [address] Kimberlyn Melgoza, ELECTRICAL PROSPECTING ENGINEER-PROGRAM PRODUCTION SPECIALIST [address] [place] [address] Division of Hematology & Oncology at [facility] Start: 10-13-2023 End: 10-12-2024 Basic metabolic 2000 panel - Serum or Plasma Basic metabolic panel Lab Routine Hyperuricemia Bilateral leg edema Expected: 10/13/2023 (Approximate), Expires: 10/12/2024 [facility] Service Area Work Phone: Comment on above: Expected: 10/13/2023 (Approximate), Expires: 10/12/2024 Start: 10-13-2023 End: 10-12-2024 Urate [Mass/volume] in Serum or Plasma Uric acid Lab Routine Hyperuricemia Expected: 10/13/2023 (Approximate), Expires: 10/12/[address] [facility] Work Phone: Comment on above: Expected: 10/13/2023 (Approximate), Expires: 10/12/2024 Start: 10-13-2023 End: 10-13-2023 Patient encounter procedure 10/13/2023 10:30 AM EDT Office Visit [facility] Medical Office Building [address] [place] [phone] Maddi Garcia, ELECTRICAL PROSPECTING ENGINEER-PROGRAM PRODUCTION SPECIALIST, [facility] [address] [address] [facility] Medical Office Building Start: 09-22-2023 End: 03-24-2024 Hemoglobin A1c/Hemoglobin.total in Blood Hemoglobin A1C Lab Routine Prediabetes Expected: 09/22/2023 (Approximate), Expires: 03/24/2024 [facility] Service Area Work Phone: Comment on above: Expected: 09/22/2023 (Approximate), Expires: 03/24/2024 Start: 09-22-2023 End: 03-24-2024 Lipid 1996 panel - Serum or Plasma Lipid Panel Lab Routine Hypertriglyceridemia Expected: 09/22/2023 (Approximate), Expires: 03/24/[address] [facility] Work Phone: Comment on above: Expected: 09/22/2023 (Approximate), Expires: 03/24/2024 Start: 09-22-2023 End: 09-22-2023 Patient encounter procedure 09/22/2023 10:00 AM EDT Office Visit [facility] [address] [place] [phone] Thelma Frazier DO [address] [facility] [place] [address] [facility] Start: 08-28-2023 Medicare Annual Wellness Visit Medicare Annual Wellness Visit (AWV) [facility] Start: 08-22-2023 End: 08-22-2023 Patient encounter procedure 08/22/2023 3:45 PM EDT Office Visit [facility] Medical Office [facility] [address] [place] [phone] Ryan Grier MD [address] Level, [address] [address] [facility] Office [facility] Start: 08-18-2023 End: 08-18-2023 Patient encounter procedure [facility] Start: 08-03-2023 End: 08-03-2023 Patient encounter procedure 08/03/2023 1:00 PM EDT Appointment [facility] [address] [place] [address] [facility] Start: 07-28-2023 End: 07-28-2023 Patient encounter procedure 07/28/2023 3:00 PM EST Office Visit [facility] Medical Office [facility] [address] [place] [phone] Ryan Grier MD [address] Upper Level, [facility] 2 [place] [address] [facility] Office Building Start: 07-28-2023 End: 07-27-2024 CT for calcium scoring WO contrast and CTA W contrast IV Heart and coronary arteries CT cardiac scoring wo IV contrast Imaging Routine Shortness of breath Expected: 07/28/2023, Expires: 07/27/2024 [facility] Service Area Work Phone: Comment on above: Expected: 07/28/2023 , Expires: 07/27/2024 Start: 07-28-2023 End: 07-27-2025 US Heart Transthoracic Transthoracic Echo Complete Echocardiography Routine Shortness of breath Expected: 07/28/2023 (Approximate), Expires: 07/27/[address] [facility] Work Phone: Comment on above: Expected: 07/28/2023 (Approximate), Expires: 07/27/2025 Start: 07-28-2023 End: 07-27-2025 US.doppler Lower extremity vein - bilateral Vascular US lower extremity venous duplex bilateral Vascular Ultrasound Routine Leg edema Expected: 07/28/2023 (Approximate), Expires: 07/27/[address] [facility] Work Phone: Comment on above: Expected: 07/28/2023 (Approximate), Expires: 07/27/2025 Start: 07-21-2023 End: 07-21-2023 Patient encounter procedure 07/21/2023 10:40 AM EST Office Visit [facility] [address] [place] [phone] Thelma Frazier DO [address] [facility] [place] [address] [facility] Start: 06-08-2023 End: 08-06-2024 DBT Breast - bilateral BI mammo bilateral screening tomosynthesis Imaging Routine Encounter for screening mammogram for malignant neoplasm of breast Expected: 06/08/2023 (Approximate), Expires: 08/06/2024 [facility] Service Area Work Phone: Comment on above: Expected: 06/08/2023 (Approximate), Expires: 08/06/2024 Start: 06-08-2023 Screening for malignant neoplasm of breast Mammogram [facility] Start: 2023 End: 08-27-2023 Hemoglobin A1c/Hemoglobin.total in Blood Hemoglobin A1c Lab Routine Prediabetes Expected: 2023 (Approximate), Expires: 08/27/2023 [facility] Work Phone: Comment on above: Expected: 2023 (Approximate), Expires: 08/27/2023 Start: 01-21-[address] [facility] Start: 10-12-2022 FUV, Provider: Maddi Garcia, Status: Pen, Time: 10:15 AM FUV, Provider: Maddi Garcia, Status: Pen, Time: 10:15 AM [facility] [address] DO Work Phone: Start: 08-12-2022 EPV, Provider: Thelma Frazier, Status: Pen, Time: 9:20 AM EPV, Provider: Thelma Frazier, Status: Pen, Time: 9:20 AM [facility] Work Phone: Start: 06-30-2022 Medicare Annual Wellness Visit Medicare Annual Wellness Visit (AWV) [facility] Start: 06-15-2022 End: 06-15-2022 Patient encounter procedure 06/15/2022 Office Visit Hematology Paulo Barakat MD, PhD [address] [place] [address] Division of Hematology & Oncology Start: 06-01-2022 Potassium [Moles/volume] in Serum or Plasma POTASSIUM [facility] Start: 05-27-2022 Screening for malignant neoplasm of colon COLORECTAL CANCER SCREENING DISCUSSION [facility] Start: 04-08-2022 Hemoglobin A1c measurement Diabetes: Hemoglobin A1C [facility] Start: 04-06-2022 End: 04-06-2022 Patient encounter procedure 04/06/2022 Office Visit Hematology Paulo Barakat MD, PhD [address] Floor [place] [phone] Division of Hematology & Oncology Start: 02-04-2022 EPV, Provider: Thelma Frazier, Status: Pen, Time: 1:40 PM EPV, Provider: Thelma Frazier, Status: Pen, Time: 1:40 PM [facility] Work Phone: Start: 01-21-2022 Influenza vaccination [facility] Start: 12-28-2021 EPV, Provider: Thelma Frazier, Status: Pen, Time: 10:00 AM EPV, Provider: Thelma Frazier, Status: Pen, Time: 10:00 AM [facility] Work Phone: Start: 12-28-2021 Patient encounter procedure [facility] Medicine [place] Start: 12-21-2021 Patient encounter procedure [facility] Diagnostic Start: 11-18-2021 EPV, Provider: Thelma Frazier, Status: Pen, Time: 12:40 PM EPV, Provider: Thelma Frazier, Status: Pen, Time: 12:40 PM [facility] Work Phone: Start: 10-01-2021 FUV, Provider: Jeet Garcia, Status: Pen, Time: 10:00 AM FUV, Provider: Jeet Garcia, Status: Pen, Time: 10:00 AM [id number] [address] DO Work Phone: Start: 10-01-2021 Patient encounter procedure [facility] Start: 07-31-2021 PTRECHADUL, Provider : Jeanne Mason, Status: Pen, Time: 11:15 AM PTRECHADUL, Provider: Jeanne Mason, Status: Pen, Time: 11:15 AM [facility] Work Phone: Start: 07-27-2021 [email or web address], Provider : Chantell De Jesus, Status: Pen, Time: 10:45 AM PTFUADULT4, Provider: Chantell De Jesus, Status: Pen, Time: 10:[address] [facility] Work Phone: Start: 07-23-2021 [email or web address], Provider : Chantell De Jesus, Status: Pen, Time: 10:45 AM [email or web address], Provider: Chantell De Jesus, Status: Pen, Time: 10:[address] [facility] Work Phone: Start: 07-20-2021 [email or web address], Provider : Jeanne Mason, Status: Pen, Time: 10:45 AM [email or web address], Provider: Jeanne Mason, Status: Pen, Time: 10:[address] [facility] Work Phone: Start: 07-16-2021 [email or web address], Provider : Chantell De Jesus, Status: Pen, Time: 9:45 AM [email or web address], Provider: Chantell De Jesus, Status: Pen, Time: 9:[address] [facility] Work Phone: Start: 07-13-2021 [email or web address], Provider : Jeanne Mason, Status: Pen, Time: 11:45 AM [email or web address], Provider: Jeanne Mason, Status: Pen, Time: 11:[address] [facility] Work Phone: Start: 07-10-2021 EPV, Provider: Thelma Frazier, Status: Pen, Time: 11:00 AM EPV, Provider: Thelma Frazier, Status: Pen, Time: 11:00 AM [facility] Work Phone: Start: 07-09-2021 [email or web address], Provider : Chantell De Jesus, Status: Pen, Time: 8:30 AM PTFUADULT4, Provider: Chantell De Jesus, Status: Pen, Time: 8:[address] [facility] Work Phone: Start: 07-06-2021 PTEVAADULT, Provider : Jeanne Mason, Status: Pen, Time: 9:00 AM PTEVAADULT, Provider: Jeanne Mason, Status: Pen, Time: 9:00 AM [facility] Work Phone: Start: 07-02-2021 FUV, Provider: Jeet Garcia, Status: Pen, Time: 11:45 AM FUV, Provider: Jeet Garcia, Status: Pen, Time: 11:45 AM [facility] Work Phone: Start: 05-27-2021 [facility] Provider: Keyana Cloud, Status: Pen, Time: 8:30 AM [facility], Provider: Keyana Cloud, Status: Pen, Time: 8:30 AM [facility] Work Phone: Start: 05-06-2021 EPV, Provider: Thelma Frazier, Status: Pen, Time: 12:00 PM EPV, Provider: Thelma Frazier, Status: Pen, Time: 12:00 PM [facility] Work Phone: Start: 04-14-2021 FUV, Provider: Jeet Garcia, Status: Pen, Time: 10:30 AM FUV, Provider: Jeet Garcia, Status: Pen, Time: 10:30 AM [facility] 3 DO Work Phone: Start: 03-17-2021 FUV, Provider: Jeet Garcia, Status: Pen, Time: 10:00 AM FUV, Provider: Jeet Garcia, Status: Pen, Time: 10:00 AM [facility] 3 DO Work Phone: Start: 01-09-2021 EPV, Provider: Thelma Frazier, Status: Pen, Time: 10:40 AM EPV, Provider: Thelma Frazier, Status: Pen, Time: 10:40 AM [facility] [address] 3 DO Work Phone: Start: 12-17-2020 Screening for malignant neoplasm of breast MAMMOGRAM SCREENING DISCUSSION [facility] Start: 12-17-2020 Screening mammography MAMMOGRA M SCREENING DISCUSSION [facility] Start: 11-16-2020 Screening for malignant neoplasm of colon FIT-DNA (Cologuard) [facility] Start: 08-21-2020 COVID-19 VACCINE (#1) COVID-19 VACCI NE (#1) [facility] Start: 08-21-2020 COVID-19 Vaccine (3 - Moderna risk series) COVID-19 Vaccine (3 - Moderna risk series) [facility] Start: 2010 RSV High Risk: (Elderly (60+) or Population) (1 - Risk 60-74 years 1-dose series) RSV High Risk: (Elderly (60+) or Population) (1 - Risk 60-74 years 1-dose series) [facility] Start: 2010 RSV patient s and/or patients aged 60+ years (1 - 1-dose 60+ series) RSV patients and/or patients aged 60+ years (1 - 1-dose 60+ series) [facility] Start: 2010 RSV VACCINE (1 - 1-dose 60+ series) RSV VACCINE (1 - 1-dose 60+ series) [facility] Start: 2010 RSV VACCINE (1 - Ris k 60-74 years 1-dose series) RSV VACCINE (1 - Risk 60-74 years 1-dose series) [facility] [facility] Start: [facility]26[facility] Zoster vaccine hzv live for subcutaneous use ZOSTER (SHINGLES) VACCINE (1 of 2) [facility] Start: 1995 Colonoscopy COLORECTAL CAN CER SCREENING DISCUSSION [facility] Start: 1990 Fasting lipid profile LIPID SCREENIN G [facility] Start: 1990 Lipid panel LIPID SCREENING [facility] Start: 02-26-1972 DTaP/Tdap/Td Vaccine s (1 - Tdap) DTaP/Tdap/Td Vaccines (1 - Tdap) [facility] Start: 1971 Screening for malignant neoplasm of cervix CERVICAL CANCER SCREENING DISCUSSION [facility] Start: 1969 Pneumococcal vaccination [facility] Start: 1969 Third diphtheria, tetanus and acellular pertussis (DTaP) vaccination TDAP (ADULT) [facility] Start: 1969 Zoster vaccine hzv live for subcutaneous use ZOSTER (SHINGLES) VACCINE (1 of 2) [facility] Start: 1969 Zoster Vaccines (1 o f 2) Zoster Vaccines (1 of 2) [facility] Start: 02-26-1968 Tetanus vaccination TETANUS [facility] Start: 02-26-1956 Pneumococcal vaccination [facility] Start: 02-26-1956 Pneumococcal Vaccine : 65+ Years (1 - PCV) Pneumococcal Vaccine: 65+ Years (1 - PCV) [facility] Start: 02-26-1956 Pneumococcal Vaccine : 65+ Years (1 of 2 - PCV) Pneumococcal Vaccine: 65+ Years (1 of 2 - PCV) [facility] Start: 1955 COVID-19 VACCINE (#1) COVID-19 VACCI NE (#1) [facility] Start: 1951 MMR Vaccines (1 of 1 - Standard series) MMR Vaccines (1 of 1 - Standard series) [facility] Start: 1950 COVID-19 VACCINE (#1) COVID-19 VACCI NE (#1) [facility] Start: 1950 Hepatitis C antibody , confirmatory test HEPATITIS C VIRUS SCREENING [facility] Start: 1950 Hepatitis C screening HEPATITIS C DAKSHA SCREENING [facility] Start: 1950 Medicare Annual Wellness Visit Medicare Annual Wellness Visit (AWV) [facility] Start: 1950 Screening for malignant neoplasm of colon [facility] Start: 1950 Screening for osteoporosis DEXA SCAN DISCUSSION [facility] Start: 1950 Tetanus vaccination TETANUS [facility] Albumin [Moles/volum e] in Serum or Plasma [facility] Albumin [Moles/volum e] in Serum or Plasma [facility] Albumin [Moles/volum e] in Serum or Plasma [facility] Albumin [Moles/volum e] in Serum or Plasma [facility] Albumin [Moles/volum e] in Serum or Plasma [facility] Albumin [Moles/volum e] in Serum or Plasma [facility] Albumin [Moles/volum e] in Serum or Plasma [facility] Albumin/Globulin ratio [facility] Albumin/Globulin ratio [facility] Albumin/Globulin ratio [facility] Albumin/Globulin ratio [facility] Albumin/Globulin ratio [facility] Albumin/Globulin ratio [facility] Albumin/Globulin ratio [facility] Basic metabolic 1998 panel - Serum or Plasma Basic Metabolic Panel [facility] Work Phone: Comment on above: Approx [id number] CBC AND ELECTRONIC DIFF CBC AND ELECTRONIC DIFF Lab Routine Multiple myeloma, remission status unspecified Ordered: 10/13/2021 [facility] Comment on above: Ordered: 10/13/2021 CBC AND ELECTRONIC DIFF CBC AND ELECTRONIC DIFF Lab Routine Multiple myeloma, remission status unspecified Ordered: 01/30/2024 [facility] Work Phone: Comment on above: Ordered: 01/30/2024 CBC W Auto Differential panel - Blood [facility] CBC W Auto Differential panel - Blood [facility] Comprehensive metabolic 2000 panel - Serum or Plasma [facility] End: 02-08-2025 CT Cervical spine WO contrast [facility] Service Area Work Phone: Comment on above: Once for 1 Occurrenc es starting 02/08/2025 until 02/08/2025 End: 07-09-2023 ECG [address] [facility] Work Phone: Comment on above: Once for 1 Occurrenc es starting 07/09/2023 until 07/09/2023 End: 05-31-2024 ECG 12 Lead ECG 12 Lead ECG STAT Once for 1 Occurrences starting 05/31/2024 until 05/31/2024 [facility] Service Area Work Phone: Comment on above: Once for 1 Occurrenc es starting 05/31/2024 until 05/31/2024 Electrophoresis: [id number] [facility] Electrophoresis: [id number] [facility] Electrophoresis: [id number] [facility] Electrophoresis: [id number] [facility] Electrophoresis: [id number]-[id number] [facility] Electrophoresis: [id number]-bwfojasb [facility] Electrophoresis: [id number]-sujdyzxo [facility] Electrophoresis: andra ma globulin [facility] Electrophoresis: andra ma globulin [facility] Electrophoresis: andra ma globulin [facility] Electrophoresis: andra ma globulin [facility] Electrophoresis: andra ma globulin [facility] Electrophoresis: andra ma globulin [facility] Electrophoresis: andra ma globulin [facility] End: 07-09-2023 Extra Urine Tube [facility] Work Phone: Comment on above: Once for 1 Occurrenc es starting 07/09/2023 until 07/09/2023 Globulin [facility] Globulin measurement [facility] Globulin measurement [facility] Globulin measurement [facility] Globulin measurement [facility] Globulin measurement [facility] Globulin measurement [facility] H/O: surgery History of lumpe ctomy of both breasts [facility] H/O: tubal ligation History of tubal liga tion [facility] History of cholecystectomy History of laparoscopic cholecystectomy [facility] History of colonoscopy History of colonos copy [facility] IgA [Mass/volume] in Serum or Plasma [facility] IgA [Mass/volume] in Serum or Plasma [facility] IgA [Mass/volume] in Serum or Plasma [facility] IgA [Mass/volume] in Serum or Plasma [facility] IgA [Mass/volume] in Serum or Plasma [facility] IgA [Mass/volume] in Serum or Plasma [facility] IgA [Mass/volume] in Serum or Plasma [facility] IgG [Mass/volume] in Serum or Plasma [facility] IgG [Mass/volume] in Serum or Plasma [facility] IgG [Mass/volume] in Serum or Plasma [facility] IgG [Mass/volume] in Serum or Plasma [facility] IgG [Mass/volume] in Serum or Plasma [facility] IgG [Mass/volume] in Serum or Plasma [facility] IgG [Mass/volume] in Serum or Plasma [facility] IgM [Mass/volume] in Serum or Plasma [facility] IgM [Mass/volume] in Serum or Plasma [facility] IgM [Mass/volume] in Serum or Plasma [facility] IgM [Mass/volume] in Serum or Plasma [facility] IgM [Mass/volume] in Serum or Plasma [facility] IgM [Mass/volume] in Serum or Plasma [facility] IgM [Mass/volume] in Serum or Plasma [facility] IMMUNOFIXATION SERUM IMMUNOFIXAT ION SERUM Lab Routine Multiple myeloma, remission status unspecified Ordered: 10/13/2021 [facility] Comment on above: Ordered: 10/13/2021 IMMUNOFIXATION SERUM IMMUNOFIXAT ION SERUM Lab Routine Multiple myeloma, remission status unspecified Ordered: 01/30/2024 [facility] Comment on above: Ordered: 01/30/2024 IMMUNOGLOBULINS IGG IGA IGM IMMUNOGLOBULINS IGG IGA IGM Lab Routine Multiple myeloma, remission status unspecified Ordered: 10/13/2021 [facility] Comment on above: Ordered: 10/13/2021 IMMUNOGLOBULINS IGG IGA IGM IMMUNOGLOBULINS IGG IGA IGM Lab Routine Multiple myeloma, remission status unspecified Ordered: 01/30/2024 [facility] Comment on above: Ordered: 01/30/2024 [place] and lambda lig ht chains [facility] [place]/lambda light chain ratio [facility] [place]/lambda light chain ratio [facility] [place]/lambda light chain ratio [facility] [place]/lambda light chain ratio [facility] [place]/lambda light chain ratio [facility] [place]/lambda light chain ratio [facility] Laboratory data interpretation [facility] Laboratory data interpretation [facility] Laboratory data interpretation [facility] Laboratory data interpretation [facility] Laboratory data interpretation [facility] Laboratory data interpretation [facility] Laboratory data interpretation [facility] Lambda light chains.free [Mass/volume] in Serum or Plasma [facility] Lambda light chains.free [Mass/volume] in Serum or Plasma [facility] Lambda light chains.free [Mass/volume] in Serum or Plasma [facility] Lambda light chains.free [Mass/volume] in Serum or Plasma [facility] Lambda light chains.free [Mass/volume] in Serum or Plasma [facility] Lambda light chains.free [Mass/volume] in Serum or Plasma [facility] Lipid panel Lipid Panel [facility] Work Phone: Comment on above: Approx [id number] Magnesium [Mass/volume] in Serum or Plasma [facility] Magnesium measurement [facility] Magnesium measurement [facility] Patient referral [facility] Work Phone: POCT INFLUENZA, A B POCT INFLUEN ZA, A B Point of Care Testing Routine Sore throat Acute cough Ordered: 06/10/2024 [facility] Comment on above: Ordered: 06/10/2024 POCT RSV QUALITATIVE OR SEMIQUALITATIVE, MULTI STEP POCT RSV QUALITATIVE OR SEMIQUALITATIVE, MULTI STEP Point of Care Testing Routine Sore throat Acute cough Ordered: 06/10/2024 [facility] Comment on above: Ordered: 06/10/2024 Protein electrophoresis PROTEIN ELECTROPHORESIS Lab Routine Multiple myeloma, remission status unspecified Ordered: 10/13/2021 [facility] Comment on above: Ordered: 10/13/2021 Protein electrophoresis PROTEIN ELECTROPHORESIS Lab Routine Multiple myeloma, remission status unspecified Ordered: 01/30/2024 [facility] Comment on above: Ordered: 01/30/2024 Protein electrophoresis panel - Serum or Plasma [facility] Protein electrophoresis panel - Serum or Plasma [facility] Protein electrophoresis panel - Serum or Plasma [facility] Protein electrophoresis panel - Serum or Plasma [facility] Protein electrophoresis panel - Serum or Plasma [facility] Protein electrophoresis panel - Serum or Plasma [facility] Protein electrophoresis panel - Serum or Plasma [facility] Serum immunofixation [facility] Serum inorganic phosphate measurement [facility] Serum inorganic phosphate measurement [facility] SPE SERUM TOTAL PROTEIN SPE SERUM TOTAL PROTEIN Lab Routine Multiple myeloma, remission status unspecified Ordered: 10/13/2021 [facility] Work Phone: Comment on above: Ordered: 10/13/2021 SPE SERUM TOTAL PROTEIN SPE SERUM TOTAL PROTEIN Lab Routine Multiple myeloma, remission status unspecified Ordered: 01/30/2024 [facility] Comment on above: Ordered: 01/30/2024 End: 07-09-2023 Urinalysis complete W Reflex Culture panel - Urine [facility] Service Area Work Phone: Comment on above: STAT (Lab) for 1 Occ urrences starting 07/09/2023 until 07/09/2023 Urine kappa light chain measurement [facility] Urine kappa light chain measurement [facility] Urine kappa light chain measurement [facility] Urine kappa light chain measurement [facility] Urine kappa light chain measurement [facility] Urine kappa light chain measurement [facility] End: 08-03-2023 US.doppler Lower extremity vein - bilateral [facility] Service Area Work Phone: Comment on above: Once for 1 Occurrenc es starting 08/03/2023 until 08/03/2023 End: 06-26-2024 XR Chest 2 Views [facility] Service Area Work Phone: Comment on above: Once for 1 Occurrenc es starting 06/26/2024 until 06/26/2024 End: 04-02-2025 XR Hand - bilateral [address] [facility] Work Phone: Comment on above: Once for 1 Occurrenc es starting 04/02/2025 until 04/02/2025 XR Knee - right 4 Views XR knee right 4+ views Imaging Routine Right knee pain, unspecified chronicity 04/03/2025 11:13 AM EST [facility] Work Phone: [facility] [employer] Work Phone: [facility] NEGATED: Highlighted row has been ruled out! Planned Goals not documented [facility] Work [facility]: Immunizations Immunization Date Immunization Notes Care Provider Fa emiliano 07-24-2020 Moderna COVID-19 Vaccine 100 MCG/0.5ML Intramuscular Suspension Thelma S Roselle Work Phone: [facility] 06-27-2020 Moderna COVID-19 Vaccine 100 MCG/0.5ML Intramuscular Suspension Thelma S Roselle Work Phone: [facility] Payers Date Payer Category Payer Self-pay [id number] 2018 Managed Care (unspecified) [id number] 2018 Unknown [id number] 2015 Medicare supplementa l policy (as second payer) [employer]/Setup LIFE [id number] 2015 Medicare [id number] 2015 Unknown 2015 Medicare [id number] 1950 Unknown [id number] 2.16840.1.618453.3.579.2 .1069 1950 Unknown [id number] 2.16.840.1.204847.3.579.2 .1069 1950 Unknown [id number] 2.16.840.1.748162.3.579.2 .1069 1950 Unknown [id number] 2.16.840.1.538680.3.579.2 .983 1950 Unknown [id number] 2.16.840.1.939818.3.579.2 .983 1950 Unknown [id number] 2.16.840.1.703516.3.579.2 .594 1950 Unknown [id number] 2.16.840.1.600966.3.579.2 .594 1950 Unknown [id number] 2.16.840.1.053122.3.579.2 .594 1950 Unknown [id number] 2.16.840.1.198793.3.579.2 .594 1950 Unknown [id number] 2.16.840.1.823143.3.579.2 .903 1950 Unknown [id number] 2.16.840.1.699296.3.579.2 .1243 1950 Unknown [id number] 2.16.840.1.511292.3.579.2 .1243 1950 Unknown [id number] 2.16.840.1.271183.3.579.2 .1243 1950 Unknown [id number] 2.16.840.1.436516.3.579.2 .1243 1950 Unknown [id number] 2.16.840.1.729248.3.579.2 .1243 1950 Unknown [id number] 2.16.840.1.235429.3.579.2 .1243 1950 Unknown [id number] 2.16.840.1.447024.3.579.2 .1243 1950 Unknown [id number] 2.16.840.1.804944.3.579.2 .1243 1950 Unknown [id number] 2.16.840.1.171621.3.579.2 .1243 1950 Unknown [id number] 2.16.840.1.158374.3.579.2 .1243 1950 Unknown [id number] 2.16.840.1.507228.3.579.2 .1245 1950 Unknown [id number] 2.16.840.1.923749.3.579.2 .1245 1950 Unknown [id number] 2.16.840.1.446982.3.579.2 .1245 1950 Unknown [id number] 2.16.840.1.021243.3.579.2 .1244 1950 Unknown [id number] 2.16.840.1.040551.3.579.2 .1244 1950 Unknown [id number] 2.16.840.1.566788.3.579.2 .1244 1950 Unknown [id number] 2.16.840.1.523532.3.579.2 .1244 1950 Unknown [id number] 2.16.840.1.001232.3.579.2 .1244 1950 Unknown [id number] 2.16.840.1.050131.3.579.2 .1244 1950 Unknown [id number] 2.16.840.1.303577.3.579.2 .1244 1950 Unknown [id number] 2.16.840.1.804924.3.579.2 .1244 1950 Unknown [id number] 2.16.840.1.412030.3.579.2 .1244 1950 Unknown [id number] 2.16.840.1.144455.3.579.2 .1244 1950 Unknown [id number] 2.16.840.1.135082.3.579.2 .1244 1950 Unknown [id number] 2.16.840.1.115334.3.579.2 .1244 Unknown [id number] 2.16.840.1.224744.3.579.2 .462 Unknown [id number] 2.16.840.1.444965.3.579.2 .462 Unknown [id number] 2.16.840.1.753615.3.579.2 .462 Unknown [id number] 2.840.1.279240.3.579.2 .462 Unknown [id number] .840.1.691270.3.579.2 .462 Unknown [id number] .840.1.791906.3.579.2 .462 Unknown [id number] 2.840.1.748037.3.579.2 .462 Unknown [id number] 2.840.1.841473.3.579.2 .462 Unknown [id number] .840.1.704538.3.579.2 .462 Unknown [id number] .840.1.055930.3.579.2 .462 Unknown [id number] 2.840.1.504410.3.579.2 .462 Unknown [id number] .840.1.141533.3.579.2 .462 Unknown [id number] .840.1.033381.3.579.2 .462 Unknown [id number] 840.1.996628.3.579.2 .462 Unknown [id number] .840.1.923667.3.579.2 .462 Unknown [id number] 840.1.642965.3.579.2 .462 Unknown [id number] .840.1.066854.3.579.2 .462 Unknown [id number] .840.1.734584.3.579.2 .462 Unknown [id number] 2.840.1.263940.3.579.2 .462 Unknown [id number] 2.840.1.186126.3.579.2 .462 Unknown [id number] 2.840.1.895767.3.579.2 .462 Unknown [id number] .840.1.797257.3.579.2 .462 Unknown [id number] 2.16.840.1.142922.3.579.2 .462 Unknown [id number] 2.16.840.1.202693.3.579.2 .462 Social History Date Type Detail Facility Start: 07-15-2021 End: 02-14-2025 No alcohol use No alcohol use [facility] Start: 07-07-2021 Tobacco smokin g consumption unknown [facility] Start: 04-08-2015 End: 08-26-2022 Tobacco smoking status NHIS Never smoked tobacco [facility] Start: 04-08-2015 End: 08-26-2022 Tobacco use and exposure Smokeless tobacco non-user [facility] Start: 07-15-2021 End: 09-11-2024 Alcohol intake Current non-drinker of alcohol (finding) [facility] Start: 12-18-2019 History SDOH Financial 5 [facility] Start: 12-18-2019 History SDOH Food Worry 1 [facility] Start: 12-18-2019 History SDOH Transport Med 2 [facility] Start: 1950 Sex Assigned At Not on file O [facility] Start: 1950 Sex Assigned At Female W [facility] Start: 08-26-2022 End: 06-18-2024 Alcohol intake Lifetime non-drinker (finding) [facility] Work Phone: Start: 08-26-2022 End: 02-14-2025 Tobacco use panel [facility] Start: 08-15-2022 End: 10-11-2024 Exposure to SARS-CoV-2 (event) Not sure [facility] Start: 06-29-2023 End: 07-09-2023 Exposure to SARS-CoV-2 (event) Yes [facility] Work Phone: Start: 04-16-2022 How hard is it for you to pay for the very basics like food, housing, medical care, and heating Not hard at all [facility] (I/We) worried whether (my/our) food would run out before (I/we) got money to buy more. Never true [facility] Start: 02-08-2025 Gender identity Identifies as female gender (finding) [facility] Start: 04-16-2022 End: 07-31-2024 Sex Female (finding) [facility] Start: 08-23-2024 End: 04-03-2025 Alcoholic beverage intake Ex-drinker (finding) [facility] Work Phone: Start: 02-08-2025 Sexual orientation Heterosexual (fin ding) [facility] Work Phone: NEGATED: Highlighted row - - [facility] Work Phone: Goals Date Patient Goal Desired Activity /State Personal health goal Comment on above: Formatting of this n ote might be different from the original. STG (To be achieved in 1 visit): 1. Patient to be independent with verbalization of understanding risk factors and skin care precautions associated with lymphedema, so as to decrease the risk of obtaining lymphedema.-met 2. Patient to obtain and L-DEX measurement, per doctor's request.- met LTG : None, as patient will only return to the clinic if they experience decreased range of motion or increased pain after surgery. Comment on above: Formatting of this n ote might be different from the original. STG (To be achieved in 1 visit): 1. Patient to be independent with verbalization of understanding risk factors and skin care precautions associated with lymphedema, so as to decrease the risk of obtaining lymphedema.-met 2. Patient to obtain and L-DEX measurement, per doctor's request.- met LTG : None, as patient will only return to the clinic if they experience decreased range of motion or increased pain after surgery. Functional Status Date Assessment Result Facility 03-11-2025 Functional status 128/78 025 2:46 PM EDT Patti Alvarez MA 128/[address] [facility] 03-11-2025 Vital signs 94 03/11/2025 2: 46 PM EDT Patti Alvarez MA [facility] Work Phone: 02-14-2025 Patient Health Questionnaire 2 item (PHQ-2) [Reported] [facility] Work Phone: 02-14-2025 Functional status 132/[address] [facility] 02-14-2025 Vital signs 66 02/14/2025 8: 12 AM Patti Boo MA [facility] Work Phone: 02-14-2025 [facility] Work Phone: 01-31-2025 Patient Health Questionnaire 2 item (PHQ-2) [Reported] [facility] Work Phone: [facility] NEGATED: Highlighted row Functional performance Functional status health issues are not documented Disease [facility] Work Phone: Mental Status Date Assessment Result Facility NEGATED: Highlighted row Cognitive function [Interpretation] Cognitive status health issues are not documented Disease [facility] Work Phone: Clinical Notes 10-21-2020 to 04-03-2025 Assessment & Plan Note - Robina Pendleton MD - 04/03/2025 12:07 PM ESTAssessment & Plan Note - Robina Pendleton MD - 04/03/2025 12:07 PM Miguel Pendleton MD - 04/03/2025 11:30 AM EST Note Date & Type Note Facility 04-03-2025 Evaluation + Plan note Associated Problem(s): Arthritis of right knee Assessment: Right knee arthritis Plan: Aspiration under ultrasound control and injection of 40 mg of Kenalog. She had an excellent lidocaine suppression test Voltaren gel use as directed Adjust activities to avoid aggravating her symptoms Follow-up in 6 weeks for reevaluation [facility] Work Phone: 04-03-2025 Miscellaneous Notes Associated Problem(s): Arthritis of right knee Assessment: Right knee arthritis Plan: Aspiration under ultrasound control and injection of 40 mg of Kenalog. She had an excellent lidocaine suppression test Voltaren gel use as directed Adjust activities to avoid aggravating her symptoms Follow-up in 6 weeks for reevaluation documented in this encounter [facility] Work Phone: 04-03-2025 History of Present illness Narrative Associated Order(s): L Inj/Asp: R knee Post-Procedure Diagnose(s): Arthritis of right knee; Right knee pain, unspecified chronicity Assessment/Plan Encounter Diagnoses: Arthritis of right knee Right knee pain, unspecified chronicity No problem-specific Assessment & Plan notes found for this encounter. Arthritis of right knee Assessment: Right knee arthritis Plan: Aspiration under ultrasound control and injection of 40 mg of Kenalog. She had an excellent lidocaine suppression test Voltaren gel use as directed Adjust activities to avoid aggravating her symptoms Follow-up in 6 weeks for reevaluation Subjective Patient ID: Lauri Read is a 75 y.o. female. Chief Complaint: Pain of the Right Knee Last Surgery: No surgery found Last Surgery Date: No surgery found HPI 75-year-old comes in today for her right medial knee pain. No history of trauma. OBJECTIVE: ORTHO Right knee: Skin healthy and intact No gross swelling or ecchymosis Alignment: Varus Effusion: Mild ROM: 5 degrees Extension 90 degrees Flexion then some guarding and pain Minimal crepitance with range of motion No pain with internal rotation of the hip Tenderness to palpation: Medial joint line 10 degrees laxity to valgus stress No laxity to varus stress Negative Sandra s test Negative posterior drawer test Minimal to mild pain with Yosi s test Neurovascular exam normal distally 2+ DP pulse and good cap refill IMAGE RESULTS: Point of Care Ultrasound These images are not reportable by radiology and will not be interpreted by Radiologists. XR hand 3+ views bilateral Narrative: Interpreted By: Hung Garcia, STUDY: XR HAND 3+ VIEWS BILATERAL 04/02/2025 8:59 am INDICATION: Signs/Symptoms:TAMI HAND PAIN COMPARISON: None. ACCESSION NUMBER(S): [id number] ORDERING CLINICIAN: ROBINA PENDLETON TECHNIQUE: Three views each of the bilateral hands including AP, oblique and lateral projections were obtained. FINDINGS: There is no evidence of acute fracture or dislocation identified. Moderate to severe hypertrophic degenerative changes are seen in the 2nd and 3rd distal interphalangeal joints bilaterally, greater on the left than on the right. Mild degenerative changes are seen in the remaining interphalangeal joints bilaterally. Impression: 1. No fracture or dislocation. 2. Degenerative changes, as described above. MACRO: None. Signed by: Hung Garcia 04/03/2025 9:39 AM Dictation workstation: [id number] ULTRASOUND L Inj/Asp: R knee on 04/03/2025 12:10 PM Indications: pain Details: 18 G needle, ultrasound-guided superolateral approach Medications: 40 mg triamcinolone acetonide 40 mg/mL; 2 mL lidocaine 20 mg/mL (2 %); 4 mL ropivacaine 5 mg/mL (0.5 %) Procedure, treatment alternatives, risks and benefits explained, specific risks discussed. Consent was given by the patient. Immediately prior to procedure a time out was called to verify the correct patient, procedure, equipment, forestry support specialist and site/side marked as required. Patient was prepped and draped in the usual sterile fashion. Orders Placed This Encounter XR knee right 4+ views Point of Care Ultrasound The contents of this note were dictated into the [employer] software. Sometimes errors in wording, punctuation, or spelling are seen. documented in this encounter [facility] Work Phone: 04-02-2025 Evaluation + Plan note Associated Problem(s): Bilateral hand pain Assessment: Bilateral carpal tunnel syndrome Plan: Voltaren gel use as directed Activity restrictions Cock up wrist splint as needed Follow-up in 3 to 4 months for reevaluation. [facility] Work Phone: 04-02-2025 Miscellaneous Notes Associated Problem(s): Bilateral hand pain Assessment: Bilateral carpal tunnel syndrome Plan: Voltaren gel use as directed Activity restrictions Cock up wrist splint as needed Follow-up in 3 to 4 months for reevaluation. documented in this encounter [facility] Work Phone: 04-02-2025 History of Present illness Narrative Assessment/Plan Encounter Diagnoses: Bilateral hand pain Bilateral hand pain Assessment: Bilateral carpal tunnel syndrome Plan: Voltaren gel use as directed Activity restrictions Cock up wrist splint as needed Follow-up in 3 to 4 months for reevaluation. Patient was advised of the risks, benefits, alternatives and complications of a carpal tunnel release. The patient agreed to proceed. The patient was informed of the risk of poor healing, infection, nerve and blood vessel injury, persistence of numbness and other symptoms and rarely nerve or tendon injury. The patient agreed to proceed. At this point she would prefer to defer surgical intervention. Because her symptoms are chronic and she has not noticed any recent exacerbation and she is not having any night pain and her condition is fairly stable I think this is appropriate. She understands my first choice would be to decompress the nerves but will follow her in 3 to 4 months and discuss this once again. If her symptoms change and she wishes to proceed or be seen for this and happy to see her sooner Subjective Patient ID: Lauri Read is a 75 y.o. female. Chief Complaint: Numbness and New Patient Visit of the Left Hand and Numbness and New Patient Visit of the Right Hand (WORST/GETTING DRESSED WITH BUTTONS,PICKING UP SOMETHING FLAT ) Last Surgery: No surgery found Last Surgery Date: No surgery found HPI 75-year-old who comes in today stating that she has had a many year history of numbness and tingling in her median nerve distributions. 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 She denies any night pain. He denies any weakness. She denies any significant progression. OBJECTIVE: ORTHO EXAM Left wrist/hand: No obvious swelling or masses Thenar eminence muscle mass: Within normal limits No atrophy noted of hypothenar eminence Equivocal Tinel's at carpal tunnel + Median nerve compression test- Alesia's Test + Phalen's test Decreased sensation to light touch and 2 point discrimination in median nerve distribution She splits the ring finger and has near normal sensation in the ulnar nerve distribution Motor exam within normal limits Good capillary refill Left wrist and hand exam No obvious swelling or masses Thenar eminence muscle mass: Within normal limits No atrophy noted of hypothenar eminence Equivocal Tinel's at carpal tunnel + Median nerve compression test- Alesia's Test + Phalen's test Decreased sensation to light touch and 2 point discrimination in median nerve distribution She splits the ring finger and has near normal sensation in the ulnar nerve distribution Motor exam within normal limits Good capillary refill IMAGE RESULTS: Point of Care Ultrasound These images are not reportable by radiology and will not be interpreted by Radiologists. ULTRASOUND Wrist Ultrasound DIAGNOSTIC ULTRASOUND REPORT FINAL: Right HAND AND WRIST Journey Lineman: Robina Pendleton MD Procedure: Ultrasound, extremity, nonvascular, real-time, COMPLETE, anatomic specific. Indication: Wrist Pain Technique: B-Mode Ultrasound Examination performed using 8-13 MHz linear transducer with [employer] STUDY TYPE: 1. ULTRASOUND EXTREMITY 2. REAL TIME WITH IMAGE DOCUMENTATION 3. NON-VASCULAR 4. COMPLETE STUDY Site: LEFT HAND AND WRIST Live ultrasound was performed with the patient's HAND AND WRIST and PERMANENTLY documented. COMPLETE and FINAL ULTRASOUND REPORT of the patient's HAND AND WRIST. . I personally performed the ultrasound and reviewed the findings. These show: Live ultrasound was performed of the patient's HAND AND WRIST that shows intact Extensor digitorum communis, Extensor digiti minimi, Extensor indicis proprius, Extensor Pollicus Longus, Flexor Pollicus Longus, Flexor digitorum profundus, Flexor digitorum superficialis tendon with the THENAR and HYPOTHENAR muscle fibers showing normal striations. NO FLUID NOTED WITHIN THE CARPAL TUNNEL, THE MEDIAN NERVE SHOWS NORMAL PATTERN OF ECHOGENICITY. The median n. remains swollen. The tendons appear normal in appearance and size as they pass the styloid process. No fracture is appreciated. Nonsterile gloves were used for this procedure gauze pads were then used to clean the area after the procedure was compete. The patient tolerated the procedure well. The median nerve is swollen especially at the introitus to the carpal tunnel. On this side the nerve is bifid in the proximal aspect above the transverse carpal ligament. It comes together at the ligament. Wrist Ultrasound DIAGNOSTIC ULTRASOUND REPORT FINAL: Left HAND AND WRIST Journey Lineman: Robina Pendleton MD Procedure: Ultrasound, extremity, nonvascular, real-time, COMPLETE, anatomic specific. Indication: Wrist Pain Technique: B-Mode Ultrasound Examination performed using 8-13 MHz linear transducer with [employer] STUDY TYPE: 1. ULTRASOUND EXTREMITY 2. REAL TIME WITH IMAGE DOCUMENTATION 3. NON-VASCULAR 4. COMPLETE STUDY Site: LEFT HAND AND WRIST Live ultrasound was performed with the patient's HAND AND WRIST and PERMANENTLY documented.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 transplantation. * Maintenance Velcade dexamethasone March 022021-December 2022 (Velcade day 1 and 15 of a 28-day cycle and dexamethasone 20 mg day 1 and 15 of each cycle); patient initially was not compliant with prescription instructions but reported better compliance in April 2022 when her M protein relapsed * Velcade dexamethasone (3 weeks on 1 week rest of a 28-day cycle with dexamethasone 40 mg weekly with Velcade) January 14, 2023- OK * VRd resumed April?September 2023 (Velcade ;3 weeks on 1 week rest ; dexamethasone 40 mg weekly and lenalidomide/Revlimid 25 Mg days 1-14; cycle length 28 days) deeper OK then patient requested a break from therapy due to side effects. * October ?January holiday from treatment requested by patient. * February 07, 2024?August 28, 2024 and low-dose dexamethasone (20 mg on day 1 and omitting day 2 as decided on by patient), OK then subtle progression * September 2024 DRd (daratumumab, Revlimid, dexamethasone. [facility] Medical History Left facial numbness Encounter for monoclonal antibody treatment for malignancy Hypokalemia Low back pain Impacted cerumen of right ear Dehydration Tenderness of back Neuropathy Dermatitis Tooth pain Encounter for chemotherapy management Iron deficiency Anemia in chronic illness Left hip pain Encounter for education Degenerative joint disease Breast cancer Multiple myeloma Hyperuricemia Carotid stenosis Hyperglycemia Carpal tunnel syndrome GERD (gastroesophageal reflux disease) Granuloma annulare COVID-19 Benign hypertension Surgical History History of cataract extraction History of lumpectomy of both breasts History of left breast biopsy History of lymph node biopsy History of cervical polypectomy History of tubal ligation History of right breast biopsy History of cholecystectomy Hx of tonsillectomy Family History Father Lung cancer Smoker Brother , passed at 6 months of age Aplastic anemia Social History household members: spouse Smoking Status: Never smoker alcohol intake: never substance use type: does not use caffeine: Yes Type: coffee Number of servings: 1 ROS Constitutional Constitutional: Reports systems reviewed and no addt'l complaints, except as documented; Denies fatigue, fever(s), night sweats or weight loss Eyes Eyes: Reports systems reviewed and no addt'l complaints, except as documented; Denies change in vision ENT HEENT: Reports systems reviewed and no addt'l complaints, except as documented, headache(s), hearing loss, nasal discharge and sinus pressure; Denies mouth lesions Cardiovascular Cardiovascular: Reports systems reviewed and no addt'l complaints, except as documented and edema; Denies chest pain with activity Respiratory/Chest Respiratory/Chest: Reports systems reviewed and no addt'l complaints, except as documented and dyspnea on exertion; Denies wheezing Gastrointestinal Gastrointestinal: Reports systems reviewed and no addt'l complaints, except as documented, diarrhea, dyspepsia and other Details: Had a bout of diarrhea, resolved ; Denies abdominal pain, anorexia, dysphagia, heartburn, hematochezia, melena, nausea or vomiting Genitourinary Genitourinary: Reports systems reviewed and no addt'l complaints, except as documented; Denies dysuria or hematuria Musculoskeletal Musculoskeletal: Reports systems reviewed and no addt'l complaints, except as documented, arthralgias and back pain; Denies joint pain Integumentary Integumentary: Reports systems reviewed and no addt'l complaints, except as documented, new lesions, rash and other Details: Granuloma annulare manageable with topical steroids on a as needed basis. End of August 2024 broke out with shingles again under the right breast. Neurologic Neurologic: Reports systems reviewed and no addt'l complaints, except as documented; Denies focal weakness or paresthesias Psychiatric Psychiatric: Reports systems reviewed and no addt'l complaints, except as documented Endocrine Endocrinology: Reports systems reviewed and no addt'l complaints, except as documented Hematologic/Lymphatic Hematologic/Lymphatic: Reports systems reviewed and no addt'l complaints, exceptas documented; Denies easy bleeding, easy bruising or lymphadenopathy Allergic/Immunologic Allergic/Immunologic: Reports systems reviewed and no addt'l complaints, except as documented Intake Vital Signs 12/25/24 10:32 01/22/25 15:05 01/22/25 15:14 Height 4 ft 9 in 4 ft 9 in 4 ft 9 in Weight: 67.755 kg 66.848 kg BMI 32.3 31.8 BP 160/80 H 123/72 H Blood Pressure Location Lt brachial Lt brachial Position Sitting Sitting Respiration 16 18 Pulse 56 L 81 Pulse Source Monitor Monitor Temp 98.4 F 97.4 F L Temperature Source Temporal Artery Temporal Artery Pulse Oximetry (%) 97 97 Oxygen Delivery Method room air room air Intake Is patient in pain?: No Allergies No Known Allergies Allergy (Verified 01/22/25 15:09) Medications ?Medication ?Instructions ?Recorded ?Confirmed ?Type allopurinol 100 mg tablet 100 mg PO DAILY 06/02/2107/17 History furosemide 40 mg tablet 40 mg PO DAILY 06/02/2107/17 History [place] [employer] Pro DHA [place]-3 1 cap PO DAILY 2 01/22/25 History Osteoprime Ultra 2 tab PO BID 07/14/21 History Ten Mushroom 2 cap PO BID 07/14/21 History aspirin 81 mg tablet,delayed 81 mg PO DAILY 08/04/21 0 01/22/25 History release (Adult Low Dose Aspirin) Disability Placsotero #1 ea 12/15/21 01/22/25 Rx Euromedica Nerve Complex 1 cap PO BID 06/22/22 History valsartan 40 mg tablet 40 mg PO DAILY 07/19/2307/17 History dexamethasone 4 mg tablet 20 mg (5 x 4 mg) PO QDAY #10 0 tabs 01/26/24 01/22/25 Rx famotidine 20 mg tablet (Pepcid) 20 mg PO DAILY #30 ta bs 02/02/24 01/22/25 Rx Kidney Aid PO 02/21/24 01/22/25 History NAC PO 02/21/24 01/22/25 History alpha lipoic acid 125 mg-biotin 95 cap PO 02/21/2407/17 History mcg-berberine 250 mg capsule cholecalciferol (vitamin D3) 125 125 mcg PO QDAY 02/2001/22/25 History mcg (5,000 unit) capsule Paur'de'arc PO 03/20/24 01/22/25 History naproxen 500 mg tablet 500 mg PO BID 03/27/2401/22 History potassium chloride 20 mEq 40 meq (2 x 20 mEq) PO DAILY #6 06/05/24 01/22/25 Rx tablet,extended release(part/cryst) tabs spirolena PO 08/28/24 01/22/25 History nifedipine 60 mg tablet,extended 30 mg PO DAILY 01/22/25 History release lenalidomide 25 mg capsule 25 mg PO QDAY 11/16/2407/17 History (Revlimid) acyclovir 400 mg tablet 400 mg PO BID 30 days #60 ta bs 12/25/24 01/22/25 Rx Have you fallen in the past year?: No Central Venous Access Central Venous Access: No Exam Physical Exam Narrative ECOG 1 Const alert, oriented x3 and no apparent distress General Appearance: comfortable HEENT normocephalic Eyes General Eye: normal appearance of both eyes Neck no lymphadenopathy, supple and no JVD Lymph Lymphatic: no lymphadenopathy noted Chest Chest: symmetrical chest wall rise Resp clear to auscultation bilaterally Cardio regular rate and regular rhythm Jugular Venous Distention: Negative for JVD GI soft to palpation, non-tender and non-distended; Negative for hepatosplenomegaly no CVA tenderness Back/Spine no thoracic nor lumbar tenderness Extremity General Extremity: edema bilateral lower extremity Details: trace; Negative for clubbing or cyanosis Neuro oriented x3, CN's II-XII intact bilaterally, moves all extremities and no focal motor deficits Speech: speech normal Gait (Neuro): normal gait Psych mental status grossly normal Coding Level of Care Code Off vis,est,level 4 Exam Problem Focused Diagnoses Multiple myeloma, remission status unspecified C90.00 Multiple myeloma remission status: unspecified Herpes zoster without complication B02.9 Herpes zoster complications: without complications Assessment and Plan Assessment and Plan (1) Multiple myeloma: Status: Chronic Qualifiers: Multiple myeloma remission status: unspecified Qualified Code(s): C90.00 - Multiple myeloma not having achieved remission (2) Shingles: Status: Resolved Qualifiers: Herpes zoster complications: without complications Qualified Code(s): B02.9 - Zoster without complications Plan 74-year-old female with IgG kappa multiple myeloma Durie Shokan stage IIA, R-ISSstage 2,? 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 Initial work-up was done at [facility], patient was seen in second opinion at [facility] by Dr. Barakat. Patient requested care within the [facility] network at [facility] closer to home. #1 started modified VRd June 16, 2021.? Followings 2 cycle she had more than 50% drop in her M protein consistent with partial remission of her disease and treatment was tolerated without any grade 3 or 4 toxicities or delays. By December 2021 after 12 cycles M protein was no longer detectable. She declined high-dose melphalan with autologous stem cell transplant at [facility] #2 started March 02, 2022 maintenance Velcade 1.3 Mg per metered square subcu days 1 and 15, with low dose weekly dexamethasone at a reduced dose of 20 mg also on the days 1 and 15. Was not compliant with dexamethasone until April 27, 2022 when her M protein was detected again on SPEP (but too small to quantify). She has an early asymptomatic relapse of her myeloma (M protein riseof 500 Mg per DL from k[facility]wn), agreed to resume standard schedule of Velcade dexamethasone (3 weeks on 1 week rest 28-day cycles) December 2022. She remained in partial remission but not as deep as when she was on triple therapy. #3 elected to resume VRd starting April and M protein did trend down into a partial remission. However patient requested a break from therapy starting October 2023 due to troubling side effects (diarrhea, neuropathy, lower extremities edema, irritability and lack of sleep on days of steroids). As expected, her disease relapsed, though she remained symptom free. #4 daratumumab subcutaneously with dexamethasone (she decided to take dexamethasone 20 Mg day 1) January?August 2024: OK then subtle progression. #5 Started DRd: Daratumumab, Revlimid (25 mg days 1-21 of a 28-day cycle) and dexamethasone (20 mg days 1 and 2) October 02, 2024, well-tolerated except for recurrent neutropenia but no infection. As of January 2025 Revlimid dose reduction to 20 mg days 1-20 one of the 28-day cycle. Developed acute shingles localized right upper inner thigh July 2023, and againunder the right breast August 2024 admitted that she has been taking acyclovir only intermittently and never received shingles vaccine. 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 Barakat 1-continue DRd. She can be considered for CAR-T therapy in the future. 2-VTE prophylaxis with low-dose aspirin 81 mg daily.. 3-infection prophylaxis : shingles prophylaxis with acyclovir 400 mg twice daily, advised to take faithfully.? Has been advised on several occasions to receive shingles vaccine but has not consented. 4-bone supportive therapy .? Patient still needs completion of dental? work and clearance prior. She believes that these dental problems are chronic ongoing unlikely to resolve. Patient was seen impression and plan as above summarized discussed.? Yusuf Leyva MD [employer], [facility] Divisions of Medical Oncology & Hematology Department of Internal Medicine [facility] [place] [phone] This note was generated? using a voice recognition system software.? Although itwas reviewed by the author prior to finalization, it may still contain incorrectwords, spelling, and punctuation that were not noted when reviewing prior to saving.? If a clinically significant typo or inaccurately typed? phrase is noted, please notify the author. 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 That prompted a work-up for an occult malignancy that revealed that the patient had multiple myeloma. Her initial work-up was done at [facility] in [place]. She was advised quadruple therapy followed by high-dose chemotherapy and stem cell transplant. She felt too nervous about the aggressiveness of this approach. She then went to [facility] and was seen by Dr. Barakat for a second opinion where she wasadvised modified VRd(lite), for remission induction to be reevaluated for high-dose chemotherapy with melphalan followed by autologous stem cell transplant depending on her response. She requested care closer to her home town, [place], but within the [facility] network and was therefore referred to [facility] and she was first seen on June 02, 2021.. Her work-up included: Bone marrow aspirate and biopsy April 2021: Bone marrow involvement with plasma cell myeloma with 60 to 70% plasma cells. Cytogenetics 46XX. FISH positive for gain of 1q and hyperploidy of chromosome 3. Negative for hyperploidy of chromosome 7 and 11 and deletion of TP 53. PET/CT April 2021 showed a mildly hypermetabolic lytic lesion in the posterior aspect of L4. Diffuse metabolic activity of the remaining osseous structures consistent with involvement by myeloma and a discrete focal metabolicactivity in the cecum and sigmoid colon. Colonoscopy May 2021 to clarify abnormal PET: Sigmoid diverticulosis, otherwise no abnormalities and no specimen collected. Serum protein electrophoresis with immune fixation revealing a monoclonal IgG kappa of 2.6 g per DLNov2020. Urinalysis was positive for protein, 24-hour urine protein was 186 mg April 2021. Beta-2 microglobulin 3.May. Serologic tests for hepatitis B and C were negative. A normocytic anemia with a hemoglobin of 10.9, WBC 3.4, absolute neutrophil count of 1.34 and platelet count of 289, May 2021. Iron profile showed an iron saturation of 17%, elevated TIBC and elevated serum ferritin May 2021. Creatinine 0.9, normal calcium May 2021. Uric acid was elevated at 12.3, March 2021 and she was placed on allopurinol then. Treatment summary and response: * Modified VRd June 16-, February 16 2022 CR Declined myelo ablative melphalan with autologous stem cell transplantation. * Maintenance Velcade dexamethasone March 022021-December 2022 (Velcade day 1 and 15 of a 28-day cycle and dexamethasone 20 mg day 1 and 15 of each cycle); patient initially was not compliant with prescription instructions but reported better compliance in April 2022 when her M protein relapsed * Velcade dexamethasone (3 weeks on 1 week rest of a 28-day cycle with dexamethasone 40 mg weekly with Velcade) January 14, 2023- OK * VRd resumed April?September 2023 (Velcade ;3 weeks on 1 week rest ; dexamethasone 40 mg weekly and lenalidomide/Revlimid 25 Mg days 1-14; cycle length 28 days) deeper OK then patient requested a break from therapy due to side effects. * October ?January holiday from treatment requested by patient. * February 07, 2024?August 28, 2024 and low-dose dexamethasone (20 mg on day 1 and omitting day 2 asdecided on by patient), OK then subtle progression * September 2024 DRd (daratumumab, Revlimid, dexamethasone) Interval History The patient is presenting to clinic for an evaluation anticipating she will begin c4 DRd. Confirms she has 25 mg lenalidomide in her possession and intends to begin 21 days this evening. Taking ASA daily. Administered premeds Tylenol 1000 mg and Claritin 10 mg at 1000. Numbness/tingling involving fingertips, bilat R>L. Does not involve feet. Denies fever/chills, sweats, headache, dizziness, CP, palpitation, cough, N/V, diarrhea, abd pain, swelling of her extremities, bleeding/bruising. No change in exertional dyspnea and fatigue. Reports episode last week in which abruptly in the grocery store a sharp tingling sensation started at the left base of neck, followed by left sided facial numbness x several hours. She did not seek medical attention. Gait unaffected however, spouse reports her speech was different and afterward she felt like I had been through something Otherwise, unable to describe situation. Has not discussed with her pcp. Verbalizes intent to leave after treatment today for NC as close [facility]. They intend to stay through the services which maybe days-weeks. [facility] Medical History Encounter for monoclonal antibody treatment for malignancy Hypokalemia Low back pain Impacted cerumen of right ear Dehydration Tenderness of back Neuropathy Dermatitis Tooth pain Encounter for chemotherapy management Iron deficiency Anemia in chronic illness Left hip pain Encounter for education Degenerative joint disease Breast cancer Multiple myeloma Hyperuricemia Carotid stenosis Hyperglycemia Carpal tunnel syndrome GERD (gastroesophageal reflux disease) Granuloma annulare COVID-19 Benign hypertension Surgical History History of cataract extraction History of lumpectomy of both breasts History of left breast biopsy History of lymph node biopsy History of cervical polypectomy History of tubal ligation History of right breast biopsy History of cholecystectomy Hx of tonsillectomy Family History Father Lung cancer Smoker Brother , passed at 6 months of age Aplastic anemia Social History household members: spouse Smoking Status: Never smoker alcohol intake: never substance use type: does not use caffeine: Yes Type: coffee Number of servings: 1 ROS ROS Narrative Negative except as documented in the interval HPI Intake Vital Signs 10/23/24 15:14 12/25/24 10:24 12/25/24 10:32 Height 4 ft 9 in 4 ft 9 in 4 ft 9 in Weight: 149 lb 6 oz BMI 32.3 BP 160/80 H Blood Pressure Location Lt brachial Position Sitting Respiration 16 Pulse 56 L Pulse Source Monitor Temp 98.4 F Temperature Source Temporal Artery Pulse Oximetry (%) 97 Oxygen Delivery Method room air Intake Is patient in pain?: No Allergies No Known Allergies Allergy (Verified 12/25/24 10:29) Medications ?Medication ?Instructions ?Recorded ?Confirmed ?Type allopurinol 100 mg tablet 100 mg PO DAILY 06/02/2110/14 History furosemide 40 mg tablet 40 mg PO DAILY 06/02/2110/14 History [place] [employer] Pro DHA [place]-3 1 cap PO DAILY 2 12/25/24 History Osteoprime Ultra 2 tab PO BID 07/14/21 History Ten Mushroom 2 cap PO BID 07/14/21 History aspirin 81 mg tablet,delayed 81 mg PO DAILY 08/04/21 0 12/25/24 History release (Adult Low Dose Aspirin) Disability Placard #1 ea 12/15/21 12/25/24 Rx Euromedica Nerve Complex 1 cap PO BID 06/22/22 History valsartan 40 mg tablet 40 mg PO DAILY 07/19/2310/14 History dexamethasone 4 mg tablet 20 mg (5 x 4 mg) PO QDAY #10 0 tabs 01/26/24 12/25/24 Rx famotidine 20 mg tablet (Pepcid) 20 mg PO DAILY #30 ta bs 02/02/24 12/25/24 Rx Kidney Aid PO 02/21/24 12/25/24 History NAC PO 02/21/24 12/25/24 History alpha lipoic acid 125 mg-biotin 95 cap PO 02/21/2410/14 History mcg-berberine 250 mg capsule cholecalciferol (vitamin D3) 125 125 mcg PO QDAY 02/2012/25/24 History mcg (5,000 unit) capsule Paur'de'arc PO 03/20/24 12/25/24 History naproxen 500 mg tablet 500 mg PO BID 03/27/2412/25 History potassium chloride 20 mEq 40 meq (2 x 20 mEq) PO DAILY #6 06/05/24 12/25/24 Rx tablet,extended release(part/cryst) tabs spirolena PO 08/28/24 12/25/24 History nifedipine 60 mg tablet,extended 30 mg PO DAILY 12/25/24 History release lenalidomide 25 mg capsule 25 mg PO QDAY 11/16/2410/14 History (Revlimid) acyclovir 400 mg tablet 400 mg PO BID 30 days #60 ta bs 12/25/24 12/25/24 Rx Have you fallen in the past year?: No Central Venous Access Central Venous Access: No Laboratory Tests 11/27/24 12/25/24 09:45 09:37 WBC 3.0 L Hgb 10.6 L Hct 32.6 L Plt Count 189 Absolute Neuts (auto) 0.7 L Sodium 140 Potassium 4.4 Chloride 108 Carbon Dioxide 22.0 BUN 19 Creatinine 0.74 Glucose 102 H Calcium 9.5 Total Bilirubin 0.44 AST 20 ALT 18 Alkaline Phosphatase 116 H Albumin 4.2 IgG 1204 Pending GAYLE M-Adolfo 0.8 H Pending Free [place] LC, Quant 14.0 Free Lambda LC, Quant 7.7 Free [place]/Lambda Ratio 1.82 H Exam Physical Exam Const alert, oriented x3 and no apparent distress HEENT normocephalic Eyes Eyes Narrative: wears glasses General Eye: normal appearance of both eyes Neck no lymphadenopathy Resp normal respiratory effort and clear to auscultation bilaterally Cardio regular rate, regular rhythm, S1 normal heart sound and S2 normal heart sound GI normal to inspection, nondistended, normoactive bowel sounds Back/Spine no thoracic nor lumbar tenderness Extremity no clubbing, cyanosis or edema Skin no rashes or lesions noted Neuro oriented x3, moves all extremities and gait normal Speech: speech normal Psych mental status grossly normal Coding Level of Care Code Off vis,est,level 4 Exam Problem Focused Diagnoses Multiple myeloma, remission status unspecified C90.00 Multiple myeloma remission status: unspecified Assessment and Plan Assessment and Plan (1) Multiple myeloma: Status: Chronic Qualifiers: Multiple myeloma remission status: unspecified Qualified Code(s): C90.00 - Multiple myeloma not having achieved remission Orders: Referrals Neurology R20.0 - Anesthesia of skin Medications: Refilled acyclovir Start with start of chemotherapy 400 mg PO BID 30 days 60 tabs 12RF C90.00 - Multiple myeloma not having achieved remission Plan 74-year-old female with IgG kappa multiple myeloma Durie Shokan stage IIA, R- ISSstage 2,? 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 Initial work-up was done at [facility], patient was seen in second opinion at [facility] by Dr. Barakat. Patient requested care within the [facility] network at [facility] closer to home. #1 started modified VRd June 16, 2021.? Followings 2 cycle she had more than 50% drop in her M protein consistent with partial remission of her disease and treatment was tolerated without any grade 3 or 4 toxicities or delays. By December 2021 after 12 cycles M protein was no longer detectable. She declined high-dose melphalan with autologous stem cell transplant at [facility] #2 started March 02, 2022 maintenance Velcade 1.3 Mg per metered square subcu days 1 and 15, withlow dose weekly dexamethasone at a reduced dose of 20 mg also on the days 1 and 15. Was not compliant with dexamethasone until April 27, 2022 when her M protein was detected again on SPEP (but too small to quantify). She has an early asymptomatic relapse of her myeloma (M protein riseof 500 Mg per DL from keshawn), agreed to resume standard schedule of Velcade dexamethasone (3 weeks on 1 week rest 28-day cycles) December 2022. She remained in partial remission but not as deep as when she was on triple therapy. #3 elected to resume VRd starting April and M protein did trend down into a partial remission. However patient requested a break from therapy starting October 2023 due to troubling side effects (diarrhea, neuropathy, lower extremities edema, irritability and lack of sleep on days of steroids). Asexpected, her disease relapsed, though she remained symptom free. #4 daratumumab subcutaneously with dexamethasone (she decided to take dexamethasone 20 Mg day 1) January?August 2024: OK then subtle progression. #5 Started DRd: Daratumumab, Revlimid (25 mg days 1-21 of a 28-day cycle) and dexamethasone (20 mg days 1 and 2) October 02, 2024, tolerated with no grade 3 or 4 toxicities with keshawn ANC 1.1 on day 22. Developed acute shingles localized right upper inner thigh July 2023, and againunder the right breast August 2024 admitted that she has been taking acyclovir only intermittently and never received shingles vaccine. 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 Barakat 1-continue DRd. Proceed with cycle 4 today, however will hold lenalidomide this cycle d/t neutropenia (ANC <1000). She was offered a one week delay but declined given travel plans. 2-VTE prophylaxis with low-dose aspirin 81 mg daily. 3-infection prophylaxis : shingles prophylaxis with acyclovir 400 mg twice daily, advised to take faithfully.? Has been advised on several occasions to receive shingles vaccine but has not consented. 4-bone supportive therapy .? Patient still needs completion of dental? work and clearance prior. She believes that these dental problems are chronic ongoing unlikely to resolve. RTO 01/22/25 for ?cycle 5 DRd Clinical Quality Measures Falls Risk Screening/Assistive Devices Have you fallen in the past year?: No 12/25/24 1122 h VISUAL MERCHANDISER VISUAL MERCHANDISER-C> Date _ Anika Smith VISUAL MERCHANDISER VISUAL MERCHANDISER-C Cosigner Signature: Date (if applicable) CC: Dr. Thelma Frazier MD ~ [facility]08-05-2025 Progress note Author Anika Smith [facility] Note Date/Time December 25, 2024 11: 22am [facility] [address] [address] OFFICE VISIT Date of Service: 12/25/24 1023 MR#: [id number] Acct: [id number] Name: LAURI READ Rep #: [id number] : 1950 From: Anika Moore VISUAL MERCHANDISER VISUAL MERCHANDISER-C Age/Sex: 74/F Location: [facility] Status: Signed HPI Subjective Date of Service 12/25/24 Chief Complaint Multiple myeloma on treatment History of Present Illness 74-year-old female with a past medical history notable for hypertension, cerebrovascular disease, degenerative joint disease, obesity, GERD, hyperglycemia and bilateral breast cancers (2015, DCIS, status postlumpectomy and radiation no hormonal therapies. 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 That prompted a work-up for an occult malignancy that revealed that the patient had multiple myeloma. Her initial work-up was done at [facility] in [place]. She was advised quadruple therapy followed by high-dose chemotherapy and stem cell transplant. She felt too nervous about the aggressiveness of this approach. She then went to [facility] and was seen by Dr. Barakat for a second opinion where she wasadvised modified VRd(lite), for remission induction to be reevaluated for high-dose chemotherapy with melphalan followed by autologous stem cell transplant depending on her response. She requested care closer to her home town, [place], but within the [facility] network and was therefore referred to [facility] and she was first seen on June 02, 2021.. Her work-up included: Bone marrow aspirate and biopsy April 2021: Bone marrow involvement with plasma cell myeloma with 60 to 70% plasma cells. Cytogenetics 46XX. FISH positive for gain of 1q and hyperploidy of chromosome 3. Negative for hyperploidy of chromosome 7 and 11 and deletion of TP 53. PET/CT April 2021 showed a mildly hypermetabolic lytic lesion in the posterior aspect of L4. Diffuse metabolic activity of the remaining osseous structures consistent with involvement by myeloma and a discrete focal metabolicactivity in the cecum and sigmoid colon. Colonoscopy May 2021 to clarify abnormal PET: Sigmoid diverticulosis, otherwise no abnormalities and no specimen collected. Serum protein electrophoresis with immune fixation revealing a monoclonal IgG kappa of 2.6 g per DL March 2021. Urinalysis was positive for protein, 24-hour urine protein was 186 mg April 2021. Beta-2 microglobulin 3.May. Serologic tests for hepatitis B and C were negative. A normocytic anemia with a hemoglobin of 10.9, WBC 3.4, absolute neutrophil count of 1.34 and platelet count of 289, May 2021. Iron profile showed an iron saturation of 17%, elevated TIBC and elevated serum ferritin May 2021. Creatinine 0.9, normal calcium May 2021. Uric acid was elevated at 12.3, March 2021 and she was placed on allopurinol then. Treatment summary and response: * Modified VRd June 16-, February 16 2022 CR Declined myelo ablative melphalan with autologous stem cell transplantation. * Maintenance Velcade dexamethasone March 022021-December 2022 (Velcade day 1 and 15 of a 28-day cycle and dexamethasone 20 mg day 1 and 15 of each cycle); patient initially was not compliant with prescription instructions but reported better compliance in April 2022 when her M protein relapsed * Velcade dexamethasone (3 weeks on 1 week rest of a 28-day cycle with dexamethasone 40 mg weekly with Velcade) January 14, 2023- OK * VRd resumed April?September 2023 (Velcade ;3 weeks on 1 week rest ; dexamethasone 40 mg weekly and lenalidomide/Revlimid 25 Mg days 1-14; cycle length 28 days) deeper OK then patient requested a break from therapy due to side effects. * October ?January holiday from treatment requested by patient. * February 07, 2024?August 28, 2024 and low-dose dexamethasone (20 mg on day 1 and omitting day 2 as decided on by patient), OK then subtle progression * September 2024 DRd (daratumumab, Revlimid, dexamethasone) Interval History The patient is presenting to clinic for an evaluation anticipating she will begin c4 DRd. Confirms she has 25 mg lenalidomide in her possession and intends to begin 21 days this evening. Taking ASA daily. Administered premeds Tylenol 1000 mg and Claritin 10 mg at 1000. Numbness/tingling involving fingertips, bilat R>L. Does not involve feet. Denies fever/chills, sweats, headache, dizziness, CP, palpitation, cough, N/V, diarrhea, abd pain, swelling of her extremities, bleeding/bruising. No change in exertional dyspnea and fatigue. Reports episode last week in which abruptly in the grocery store a sharp tingling sensation started at the left base of neck, followed by left sided facial numbness x several hours. She did not seek medical attention. Gait unaffected however, spouse reports her speech was different and afterward she felt like I had been through something Otherwise, unable to describe situation. Has not discussed with her pcp. Verbalizes intent to leave after treatment today for NC as close family friend has been admitted to hospice. They intend to stay through the services which maybe days-weeks. [facility] Medical History Encounter for monoclonal antibody treatment for malignancy Hypokalemia Low back pain Impacted cerumen of right ear Dehydration Tenderness of back Neuropathy Dermatitis Tooth pain Encounter for chemotherapy management Iron deficiency Anemia in chronic illness Left hip pain Encounter for education Degenerative joint disease Breast cancer Multiple myeloma Hyperuricemia Carotid stenosis Hyperglycemia Carpal tunnel syndrome GERD (gastroesophageal reflux disease) Granuloma annulare COVID-19 Benign hypertension Surgical History History of cataract extraction History of lumpectomy of both breasts History of left breast biopsy History of lymph node biopsy History of cervical polypectomy History of tubal ligation History of right breast biopsy History of cholecystectomy Hx of tonsillectomy Family History Father Lung cancer Smoker Brother , passed at 6 months of age Aplastic anemia Social History household members: spouse Smoking Status: Never smoker alcohol intake: never substance use type: does not use caffeine: Yes Type: coffee Number of servings: 1 ROS ROS Narrative Negative except as documented in the interval HPI Intake Vital Signs 10/23/24 15:14 12/25/24 10:24 12/25/24 10:32 Height 4 ft 9 in 4 ft 9 in 4 ft 9 in Weight: 149 lb 6 oz BMI 32.3 BP 160/80 H Blood Pressure Location Lt brachial Position Sitting Respiration 16 Pulse 56 L Pulse Source Monitor Temp 98.4 F Temperature Source Temporal Artery Pulse Oximetry (%) 97 Oxygen Delivery Method room air Intake Is patient in pain?: No Allergies No Known Allergies Allergy (Verified 12/25/24 10:29) Medications ?Medication ?Instructions ?Recorded ?Confirmed ?Type allopurinol 100 mg tablet 100 mg PO DAILY 06/02/2110/14 History furosemide 40 mg tablet 40 mg PO DAILY 06/02/2110/14 History [place] [employer] Pro DHA [place]-3 1 cap PO DAILY 2 2 12/25/24 History Osteoprime Ultra 2 tab PO BID 07/14/21 History Ten Mushroom 2 cap PO BID 07/14/21 History aspirin 81 mg tablet,delayed 81 mg PO DAILY 08/04/21 0 12/25/24 History release (Adult Low Dose Aspirin) Disability Placard #1 ea 12/15/21 12/25/24 Rx Euromedica Nerve Complex 1 cap PO BID 06/22/22 History valsartan 40 mg tablet 40 mg PO DAILY 07/19/2310/14 History dexamethasone 4 mg tablet 20 mg (5 x 4 mg) PO QDAY #10 0 tabs 01/26/24 12/25/24 Rx famotidine 20 mg tablet (Pepcid) 20 mg PO DAILY #30 ta bs 02/02/24 12/25/24 Rx Kidney Aid PO 02/21/24 12/25/24 History NAC PO 02/21/24 12/25/24 History alpha lipoic acid 125 mg-biotin 95 cap PO 02/21/2410/14 History mcg-berberine 250 mg capsule cholecalciferol (vitamin D3) 125 125 mcg PO QDAY 02/2012/25/24 History mcg (5,000 unit) capsule Paur'de'arc PO 03/20/24 12/25/24 History naproxen 500 mg tablet 500 mg PO BID 03/27/2412/25 History potassium chloride 20 mEq 40 meq (2 x 20 mEq) PO DAILY #6 06/05/24 12/25/24 Rx tablet,extended release(part/cryst) tabs spirolena PO 08/28/24 12/25/24 History nifedipine 60 mg tablet,extended 30 mg PO DAILY 12/25/24 History release lenalidomide 25 mg capsule 25 mg PO QDAY 11/16/2410/14 History (Revlimid) acyclovir 400 mg tablet 400 mg PO BID 30 days #60 ta bs 12/25/24 12/25/24 Rx Have you fallen in the past year?: No Central Venous Access Central Venous Access: No Laboratory Tests 11/27/24 12/25/24 09:45 09:37 WBC 3.0 L Hgb 10.6 L Hct 32.6 L Plt Count 189 Absolute Neuts (auto) 0.7 L Sodium 140 Potassium 4.4 Chloride 108 Carbon Dioxide 22.0 BUN 19 Creatinine 0.74 Glucose 102 H Calcium 9.5 Total Bilirubin 0.44 AST 20 ALT 18 Alkaline Phosphatase 116 H Albumin 4.2 IgG 1204 Pending GAYLE M-Adolfo 0.8 H Pending Free [place] LC, Quant 14.0 Free Lambda LC, Quant 7.7 Free [place]/Lambda Ratio 1.82 H Exam Physical Exam Const alert, oriented x3 and no apparent distress HEENT normocephalic Eyes Eyes Narrative: wears glasses General Eye: normal appearance of both eyes Neck no lymphadenopathy Resp normal respiratory effort and clear to auscultation bilaterally Cardio regular rate, regular rhythm, S1 normal heart sound and S2 normal heart sound GI normal to inspection, nondistended, normoactive bowel sounds Back/Spine no thoracic nor lumbar tenderness Extremity no clubbing, cyanosis or edema Skin no rashes or lesions noted Neuro oriented x3, moves all extremities and gait normal Speech: speech normal Psych mental status grossly normal Coding Level of Care Code Off vis,est,level 4 Exam Problem Focused Diagnoses Multiple myeloma, remission status unspecified C90.00 Multiple myeloma remission status: unspecified Assessment and Plan Assessment and Plan (1) Multiple myeloma: Status: Chronic Qualifiers: Multiple myeloma remission status: unspecified Qualified Code(s): C90.00 - Multiple myeloma not having achieved remission Orders: Referrals Neurology R20.0 - Anesthesia of skin Medications: Refilled acyclovir Start with start of chemotherapy 400 mg PO BID 30 days 60 tabs 12RF C90.00 - Multiple myeloma not having achieved remission Plan 74-year-old female with IgG kappa multiple myeloma Durie Shokan stage IIA, R- ISSstage 2,? 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 Initial work-up was done at [facility], patient was seen in second opinion at [facility] by Dr. Barakat. Patient requested care within the [facility] network at [facility] closer to home. #1 started modified VRd June 16, 2021.? Followings 2 cycle she had more than 50% drop in her M protein consistent with partial remission of her disease and treatment was tolerated without any grade 3 or 4 toxicities or delays. By December 2021 after 12 cycles M protein was no longer detectable. She declined high-dose melphalan with autologous stem cell transplant at [facility] #2 started March 02, 2022 maintenance Velcade 1.3 Mg per metered square subcu days 1 and 15, with low dose weekly dexamethasone at a reduced dose of 20 mg also on the days 1 and 15. Was not compliant with dexamethasone until April 27, 2022 when her M protein was detected again on SPEP (but too small to quantify). She has an early asymptomatic relapse of her myeloma (M protein riseof 500 Mg per DL from keshawn), agreed to resume standard schedule of Velcade dexamethasone (3 weeks on 1 week rest 28-day cycles) December 2022. She remained in partial remission but not as deep as when she was on triple therapy. #3 elected to resume VRd starting April and M protein did trend down into a partial remission. However patient requested a break from therapy starting October 2023 due to troubling side effects (diarrhea, neuropathy, lower extremities edema, irritability and lack of sleep on days of steroids). As expected, her disease relapsed, though she remained symptom free. #4 daratumumab subcutaneously with dexamethasone (she decided to take dexamethasone 20 Mg day 1) January?August 2024: OK then subtle progression. #5 [address]d: Daratumumab, Revlimid (25 mg days 1-21 of a 28-day cycle) and dexamethasone (20 mg days 1 and 2) October 02, 2024, tolerated with no grade 3 or 4 toxicities with keshawn ANC 1.1 on day 22. Developed acute shingles localized right upper inner thigh July 2023, and againunder the right breast August 2024 admitted that she has been taking acyclovir only intermittently and never received shingles vaccine. 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 Barakat 1-continue DRd. Proceed with cycle 4 today, however will hold lenalidomide this cycle d/t neutropenia (ANC <1000). She was offered a one week delay but declined given travel plans. 2-VTE prophylaxis with low-dose aspirin 81 mg daily. 3-infection prophylaxis : shingles prophylaxis with acyclovir 400 mg twice daily, advised to take faithfully.? Has been advised on several occasions to receive shingles vaccine but has not consented. 4-bone supportive therapy .? Patient still needs completion of dental? work and clearance prior. She believes that these dental problems are chronic ongoing unlikely to resolve. RTO 01/22/25 for ?cycle 5 DRd Clinical Quality Measures Falls Risk Screening/Assistive Devices Have you fallen in the past year?: No 12/25/24 1122 <Electronically signed by Anika louis NP VISUAL MERCHANDISER-C> Date _ Anika Sarah VISUAL MERCHANDISER VISUAL MERCHANDISER-C Cosigner Signature: Date (if applicable) CC: Dr. Thelma Frazier MD ~ [employer] Work Phone: 1(178) 257-674607-21-2025 History of Present illness Narrative* Paulo Barakat Jr., MD, PhD - 12/10/2024 10:40 AM EDT Images from the original note were not included. Care team: Jeet Garcia, Thelma Frazier, Niels Grimes, Salvador Flores, Yusuf Leyva CC: Myeloma HPI Ms. Read is a very pleasant 74 y.o. woman diagnosed with myeloma. She has been under the excellent care of Dr Leyva in [place]. Since we last met, she began Revlimid with Darzalex. She feels better. She has some diarrhea with treatment but controlling this with probiotics. She looks well. Her pain is improved. A response is observed in serial restaging. ROS A complete ROS was obtained, no fever, no bleeding and is negative otherwise. PMH 1. Myeloma 2. HTN 3. Granuloma annulare 4. Obesity 5. GERD 6. Carpel tunnel 7. Hyperglycemia 8. Carotid stenosis 9. Hyperuricemia 10. Breast cancer (2015, lumpectomy/radiation) 11. COVID19 infection (April 2021) SH No tobacco, no alcohol use, 1 son (works at [employer]), 1 daughter, 1 great grand child now in [place], , her used to work for the [employer] [facility] FH Father with lung cancer Multiple myeloma Date of dx: 30-APR-2021 CRAB [...] uCR Rx best response: uCR Stop reason: Rx2:Daratumumab Start date: 01-FEB-2024 Stop date: Line of therapy: 2 Line Best response: Stop Reason: Comments: Rx3:Revlimid/dexamethasone/Darzalex Start date: Stop date: Line of therapy: 3 Line Best response: OK Stop Reason: Comments: Title Multiple Myeloma: Diagnosis Section: Date of Diagnosis: 04/30/21 CRAB at Diagnois: Anemia, Bone MDE: No MDE Protein Marker: IgG, KLC ISS at Diagnosis: 1 R-ISS at Diagnosis: 2 Durie-Shokan Stagina Karyotype at Diagnosis: Normal Bone Disease at Diagnosis: 2-3 lytic lesions FISH at Diagnosis: Yes Fish Date FISH Probe FISH Result FISH Percentage Comments 04/30/21 1q21 / CKS1B Trisomes Treatment Section: Line of Therapy Start Date Stop date Stop Reason Treatment/Regimen Rx Best Response Line Best Response Comments 1 06/11/21 Bortezomib/Lenalidomide/dexamethasone 2 02/01/24 Daratumumab Comments: uCR for rx best response and line best response for treatment. Current Outpatient Medications Medication Sig acyclovir 400mg 400 MG tablet Take 1 tablet by mouth daily. allopurinol 100 MG tablet Take 1 tablet by mouth daily. Alpha-Lipoic Acid 200 MG capsule Take 1 capsule by mouth 2 times daily. aspirin 81 MG Chew Tab chewable tablet Chew 1 tablet daily. benzonatate 200 MG capsule Take 1 capsule by mouth 3 times daily as needed. famotidine (Pepcid) 40 MG tablet Take 1 tablet by mouth See admin instructions. Take weekly for 2 weeks and off 1 week furOSEmide 40 MG tablet Take 1 tablet by mouth daily. HERBAL PRODUCT Pectasol C Multiple Vitamins-Minerals (OSTEOPRIME ULTRA PO) Take by mouth. (Patient not taking: Reported on 06/10/2024) NIFEdipine 60 MG Tab SR 24 HR tablet Take 1 tablet by mouth daily. dnoezwjycfecamz-ljtfcjoakkynfji-jqttdjxtdhdcqwet 30-2-10 MG/5ML Syrup Take 10 mL by mouth every 6 hours as needed for up to 10 days. Valsartan 40 MG tablet Take 1 tablet by mouth daily. Vitamin D-Vitamin K (D3 + K2 DOTS PO) Take 1 tablet by mouth daily. BP 139/65 Pulse 60 Temp 97.3 F (36.3 C) (Infrared) Resp 16 Ht 1.448 m (4' 9) Wt 67.8 kg (149 lb 6.4 oz) SpO2 97% BMI 32.33 kg/m Smoking Status Never NAD PERR EOMI OP clear MMM Neck supple Normal rate No wheezing DUNN no c/e/e, no rash, no bleeding 2-12 intact Karnofsky scale 80 (ECOG grade 1) Performs normal activity with effort; some signs & symptoms of disease. Labs I have reviewed all the laboratory tests completed for today's clinic visit 08/27/24 4.1 / 12.3 / 302 creatinine 0.71, calcium 9.9 TP 8.2 / Alb 4.4 08/27/24: KLC 7 / LLC 2.7 / ratio 2.59 08/27/24: IgG 1711 IgA 14 IgM 10, M spike 1.3 03/2024: M spike 0.9 04/08/21: 3.5 / 11.8 / 378, uric [...] protein 06/02/21 - 4.3, 06/30/21 - 2.5! April 2022 M protein 0.1 06/08/22: TP 6.4, alb 3.7, IgG 629, IgA 100, IgM 20, M spike 0.1 IgG kappa, counts okay 12/07/22: IgG 982, IgA 103, IgM 29, M spike 0.4 now (continues to rise from 0.1 in May) 5.7 / 12.8 / 263 Creatinine and calcium normal 10/17/23: 6.4 / 11.5 / 271 M protein 0.4 glucose 209, creatinine 0.99, calcium 9.7 11/22/23: 4.5/ 11.9/ 275 M protein 0.4, glucose 99, creat 0.86, Ca 9.5 M spike 12/14 - 0.8 from 1.0 in October Radiology 04/30/21: PET/CT: - Focal lesion 3.1x2.4cm in cecum with SUV 10.1 - 3.7x2.4cm lesion in posterior L4 vertebral body SUV 2.8 - diffuse activity through remaining osseous structures and marrow 05/27/21: Colonoscopy: - diverticulosis, no masses and no lesions, no polyps 12/14/22: L HIP XR: Soft Tissue: There is no obvious soft tissue swelling. Bone: No acute osseous abnormality or radiographically evident lesion at the left hip. Enthesopathyat the femoral greater trochanter. Hip: The hip joint is anatomically aligned. Degenerative changes including acetabular rim and femoral head marginal osteophytes. IMPRESSION: 1. No radiographically evident acute osseous abnormality or discrete lesion at the left hip. 2. Left hip osteoarthritic changes. 3. Femoral greater trochanter enthesopathy at the gluteal cuff insertion. 12/14/22: XR L FEMUR: Soft Tissue: There is no obvious soft tissue swelling. Bone: No acute osseous abnormality. No radiographically evident lucent marrow replacing lesion. Enthesopathy at the femoral greater trochanter. Joint: The hip joint is grossly intact with degenerative changes of the acetabular rim marginal osteophytes. IMPRESSION: No radiographically evident acute osseous abnormality or lesion at the left femur. Path 04/30/21: Marrow: 40-50% cellular with 60-70% kappa plasma cells, suggestive of associated fibrosis, flow: KLC, CD56,dim CD20, 46 XX Assessment and plan Ms. Read is a very pleasant 74 y.o. woman with a diagnosis of myeloma. - she continues on rev/dex/manuel with Dr Leyva locally - she does not wish to take Kyprolis out of concern for CHF side effect risk - reviewed options of CART and BITE, she may be interested in a BITE if/when needed * Jamila Donaldson RN - 12/10/2024 10:40 AM EDT Reviewed After Visit Summary with patient and family. Discussed any medication changes and recommendations from physician. All questions answered. Patient and family encouraged to call with any additional questions. documented in this [facility]07-21-2025 Instructions* Patient Instructions* Paulo Barakat Jr., MD, PhD - 12/10/2024 10:40 AM EDT Patient education Your condition Myeloma From today's visit Agree with ongoing treatment with Dr. Leyva documented in this [facility]07-08-2025 Progress note [facility] [address] [place] [address] OFFICE VISIT Date of Service: 11/27/24 1001 MR#: [id number] Acct: [id number] Name: LAURI READ Rep #: [id number] : 1950 From: Anika Moore ch VISUAL MERCHANDISER VISUAL MERCHANDISER-C Age/Sex: 74/F [place] [facility] [place]: Signed HPI Subjective Date of Service 11/27/24 Chief Complaint Multiple myeloma on treatment History of Present Illness 74-year-old female with a past medical history notable for hypertension, cerebrovascular disease, degenerative joint disease, obesity, GERD, hyperglycemia and bilateral breast cancers (2015, DCIS, status postlumpectomy and radiation no hormonal therapies. 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 That prompted a work-up for an occult malignancy that revealed that the patient had multiple myeloma. Her initial work-up was done at [facility] in [place]. She was advised quadruple therapy followed by high-dose chemotherapy and stem cell transplant. She felt too nervous about the aggressiveness of this approach. She then went to [facility] and was seen by Dr. Barakat for a second opinion where she wasadvised modified VRd(lite), for remission induction to be reevaluated for high-dose chemotherapy with melphalan followed by autologous stem cell transplant depending on her response. She requested care closer to her home town, [place], but within the [facility] network and was therefore referred to [facility] and she was first seen on June 02, 2021.. Her work-up included: Bone marrow aspirate and biopsy April 2021: Bone marrow involvement with plasma cell myeloma with 60 to 70% plasma cells. Cytogenetics 46XX. FISH positive for gain of 1q and hyperploidy of chromosome 3. Negative for hyperploidy of chromosome 7 and 11 and deletion of TP 53. PET/CT April 2021 showed a mildly hypermetabolic lytic lesion in the posterior aspect of L4. Diffuse metabolic activity of the remaining osseous structures consistent with involvement by myeloma and a discrete focal metabolicactivity in the cecum and sigmoid colon. Colonoscopy May 2021 to clarify abnormal PET: Sigmoid diverticulosis, otherwise no abnormalities and no specimen collected. Serum protein electrophoresis with immune fixation revealing a monoclonal IgG kappa of 2.6 g per DLNov2020. Urinalysis was positive for protein, 24-hour urine protein was 186 mg April 2021. Beta-2 microglobulin 3.May. Serologic tests for hepatitis B and C were negative. A normocytic anemia with a hemoglobin of 10.9, WBC 3.4, absolute neutrophil count of 1.34 and platelet count of 289, May 2021. Iron profile showed an iron saturation of 17%, elevated TIBC and elevated serum ferritin May 2021. Creatinine 0.9, normal calcium May 2021. Uric acid was elevated at 12.3, March 2021 and she was placed on allopurinol then. Treatment summary and response: * Modified VRd June 16-, February 16 2022 CR Declined myelo ablative melphalan with autologous stem cell transplantation. * Maintenance Velcade dexamethasone March 022021-December 2022 (Velcade day 1 and 15 of a 28-day cycle and dexamethasone 20 mg day 1 and 15 of each cycle); patient initially was not compliant with prescription instructions but reported better compliance in April 2022 when her M protein relapsed * Velcade dexamethasone (3 weeks on 1 week rest of a 28-day cycle with dexamethasone 40 mg weekly with Velcade) January 14, 2023- OK * VRd resumed April?September 2023 (Velcade ;3 weeks on 1 week rest ; dexamethasone 40 mg weekly and lenalidomide/Revlimid 25 Mg days 1-14; cycle length 28 days) deeper OK then patient requested a break from therapy due to side effects. * October ?January holiday from treatment requested by patient. * February 07, 2024?August 28, 2024 and low-dose dexamethasone (20 mg on day 1 and omitting day 2 asdecided on by patient), OK then subtle progression * September 2024 DRd (daratumumab, Revlimid, dexamethasone) Interval History The patient is presenting to clinic for an evaluation anticipating she will begin c3 DRd. Confirms she has 25 mg lenalidomide in her possession and intends to begin 21 days this evening. Taking ASA daily. Administered premeds Tylenol 1000 mg and Claritin 10 mg at 1040. Intermittent blurry vision continues. Numbness/tingling involving fingertips, bilat R>L. Does not involve feet. Has not experienced any muscle cramping since starting electrolyte rich fluids daily. Denies fever/chills, sweats, headache, dizziness, CP, palpitation, cough, N/V, diarrhea, abd pain, swelling of her extremities, bleeding/bruising. No change in exertional dyspnea and fatigue. [facility] Medical History Encounter for monoclonal antibody treatment for malignancy Hypokalemia Low back pain Impacted cerumen of right ear Dehydration Tenderness of back Neuropathy Dermatitis Tooth pain Encounter for chemotherapy management Iron deficiency Anemia in chronic illness Left hip pain Encounter for education Degenerative joint disease Breast cancer Multiple myeloma Hyperuricemia Carotid stenosis Hyperglycemia Carpal tunnel syndrome GERD (gastroesophageal reflux disease) Granuloma annulare COVID-19 Benign hypertension Surgical History History of cataract extraction History of lumpectomy of both breasts History of left breast biopsy History of lymph node biopsy History of cervical polypectomy History of tubal ligation History of right breast biopsy History of cholecystectomy Hx of tonsillectomy Family History Father Lung cancer Smoker Brother , passed at 6 months of age Aplastic anemia Social History household members: spouse Smoking Status: Never smoker alcohol intake: never substance use type: does not use caffeine: Yes Type: coffee Number of servings: 1 ROS ROS Narrative Negative except as documented in the interval HPI Intake Vital Signs 10/23/24 15:14 11/27/24 10:02 Height 4 ft 9 in 4 ft 9 in Weight: 148 lb 4 oz BMI 32.1 BP 150/82 H Blood Pressure Location Lt brachial Position Sitting Respiration 18 Pulse 65 Pulse Source Monitor Temp 98.5 F Temperature Source Temporal Artery Pulse Oximetry (%) 98 Oxygen Delivery Method room air Intake Is patient in pain?: No Allergies No Known Allergies Allergy (Verified 11/27/24 10:16) Medications ?Medication ?Instructions ?Recorded ?Confirmed ?Type allopurinol 100 mg tablet 100 mg PO DAILY 06/02/2101/14 History furosemide 40 mg tablet 40 mg PO DAILY 06/02/2101/14 History [place] Pro DHA [place]-3 1 cap PO DAILY 2 2 11/27/24 History Osteoprime Ultra 2 tab PO BID 07/14/21 History Ten Mushroom 2 cap PO BID 07/14/21 History aspirin 81 mg tablet,delayed 81 mg PO DAILY 08/04/21 0 11/27/24 History release (Adult Low Dose Aspirin) Disability Placard #1 ea 12/15/21 11/27/24 Rx Euromedica Nerve Complex 1 cap PO BID 06/22/22 History valsartan 40 mg tablet 40 mg PO DAILY 07/19/2301/14 History dexamethasone 4 mg tablet 20 mg (5 x 4 mg) PO QDAY #10 0 tabs 01/26/24 11/27/24 Rx acyclovir 400 mg tablet 400 mg PO BID 30 days #60 ta bs 02/02/24 11/27/24 Rx famotidine 20 mg tablet (Pepcid) 20 mg PO DAILY #30 ta bs 02/02/24 11/27/24 Rx Kidney Aid PO 02/21/24 11/27/24 History NAC PO 02/21/24 11/27/24 History alpha lipoic acid 125 mg-biotin 95 cap PO 02/21/2401/14 History mcg-berberine 250 mg capsule cholecalciferol (vitamin D3) 125 125 mcg PO QDAY 02/2011/27/24 History mcg (5,000 unit) capsule Paur'de'arc PO 03/20/24 11/27/24 History naproxen 500 mg tablet 500 mg PO BID 03/27/2411/27 History potassium chloride 20 mEq 40 meq (2 x 20 mEq) PO DAILY #6 06/05/24 11/27/24 Rx tablet,extended release(part/cryst) tabs spirolena PO 08/28/24 11/27/24 History nifedipine 60 mg tablet,extended 30 mg PO DAILY 11/27/24 History release lenalidomide 25 mg capsule 25 mg PO QDAY 11/16/2401/14 History (Revlimid) Have you fallen in the past year?: No Central Venous Access Central Venous Access: No Laboratory Tests 10/11/22 11/27/24 13:33 09:45 WBC 4.3 L Hgb 11.0 L Hct 34.1 L Plt Count 177 Absolute Neuts (auto) 2.5 Sodium 139 Potassium 4.2 Chloride 105 Carbon Dioxide 23.8 BUN 17 Creatinine 0.71 Glucose 110 H Uric Acid 5.9 Calcium 9.4 Total Bilirubin 0.41 AST 17 ALT 16 Alkaline Phosphatase 109 H Albumin 4.3 Exam Physical Exam Const alert, oriented x3 and no apparent distress HEENT normocephalic Eyes Eyes Narrative: wears glasses General Eye: normal appearance of both eyes Neck no lymphadenopathy Resp normal respiratory effort and clear to auscultation bilaterally Cardio regular rate, regular rhythm, S1 normal heart sound and S2 normal heart sound GI normal to inspection, nondistended, normoactive bowel sounds Back/Spine no thoracic nor lumbar tenderness Extremity no clubbing, cyanosis or edema Skin no rashes or lesions noted Neuro oriented x3, moves all extremities and gait normal Psych mental status grossly normal Coding Level of Care Code Off vis,est,level 4 Exam Problem Focused Diagnoses Multiple myeloma, remission status unspecified C90.00 Multiple myeloma remission status: unspecified Assessment and Plan Assessment and Plan (1) Multiple myeloma: Status: Chronic Qualifiers: Multiple myeloma remission status: unspecified Qualified Code(s): C90.00 - Multiple myeloma not having achieved remission Orders: Orders GAYLE + Protein Elect, Serum 4 Weeks C90.00 - Multiple myeloma not having achieved remission [place] Lambda Light Chains 4 Weeks C90.00 - Multiple myeloma not having achievedremission Plan 74-year-old female with IgG kappa multiple myeloma Durie Shokan stage IIA, R- ISSstage 2,? 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 Initial work-up was done at [facility], patient was seen in second opinion at [facility] by Dr. Barakat. Patient requested care within the [facility] network at [facility] closer to home. #1 started modified VRd June 16, 2021.? Followings 2 cycle she had more than 50% drop in her M protein consistent with partial remission of her disease and treatment was tolerated without any grade 3 or 4 toxicities or delays. By December 2021 after 12 cycles M protein was no longer detectable. She declined high-dose melphalan with autologous stem cell transplant at [facility] #2 started March 02, 2022 maintenance Velcade 1.3 Mg per metered square subcu days 1 and 15, withlow dose weekly dexamethasone at a reduced dose of 20 mg also on the days 1 and 15. Was not compliant with dexamethasone until April 27, 2022 when her M protein was detected again on SPEP (but too small to quantify). She has an early asymptomatic relapse of her myeloma (M protein riseof 500 Mg per DL from keshawn), agreed to resume standard schedule of Velcade dexamethasone (3 weeks on 1 week rest 28-day cycles) December 2022. She remained in partial remission but not as deep as when she was on triple therapy. #3 elected to resume VRd starting April and M protein did trend down into a partial remission. However patient requested a break from therapy starting October 2023 due to troubling side effects (diarrhea, neuropathy, lower extremities edema, irritability and lack of sleep on days of steroids). Asexpected, her disease relapsed, though she remained symptom free. #4 daratumumab subcutaneously with dexamethasone (she decided to take dexamethasone 20 Mg day 1) January?August 2024: OK then subtle progression. #5 Started DRd: Daratumumab, Revlimid (25 mg days 1-21 of a 28-day cycle) and dexamethasone (20 mg days 1 and 2) October 02, 2024, tolerated with no grade 3 or 4 toxicities with keshawn ANC 1.1 on day 22. Developed acute shingles localized right upper inner thigh July 2023, and againunder the right breast August 2024 admitted that she has been taking acyclovir only intermittently and never received shingles vaccine. 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 Barakat 1-continue DRd. Proceed with cycle 3 today. 2-VTE prophylaxis with low-dose aspirin 81 mg daily. 3-infection prophylaxis : shingles prophylaxis with acyclovir 400 mg twice daily, advised to take faithfully.? Has been advised on several occasions to receive shingles vaccine but has not consented. 4-bone supportive therapy .? Patient still needs completion of dental? work and clearance prior. She believes that these dental problems are chronic ongoing unlikely to resolve. 5- Blurry vision- may be r/t hypertension. Advised she discuss with her traffic administrator as antihypertensives were recently reduced. Patient declines mid cycle lab assessment. RTO 12/25/24 for ?cycle 4 DRd Clinical Quality Measures Falls Risk Screening/Assistive Devices Have you fallen in the past year?: No 11/27/24 1056 h VISUAL MERCHANDISER VISUAL MERCHANDISER-C> Date _ Anika Smith VISUAL MERCHANDISER VISUAL MERCHANDISER-C Cosigner Signature: Date (if applicable) CC: Dr. Jeet Garcia, DO; Dr. Thelma Frazier MD ~ [facility]06-03-2025 Evaluation note* Diagnosis Onset Date Resolution Status Admit Date Multiple myeloma chronic October 2:16pm Shingles resolved October 23, 2024 2:16pm Multiple myeloma chronic October 10:45am Multiple myeloma chronic November 9:51am Multiple myeloma chronic November 9:38am Multiple myeloma chronic December 252024 9:35am Multiple myeloma chronic Septembe r 2024 1:58pm Shingles resolved January 22, 2025 1:58pm Encounter for monoclonal antibody treatment for malignancy acute February 19, 2025 9:31am Multiple myeloma chronic Septembe r 2024 9:31am [facility] Work Phone: 1(341) 380-566506-03-2025 Progress [facility] [place] [address] [place] [address] OFFICE VISIT Date of Service: 10/23/24 1512 MR#: [id number] Acct: [id number] Name: LAURI READ Rep #: [id number] : 1950 From: Yusuf hunter MD Age/Sex: 74/F [place] [facility] [place]: Signed HPI Subjective Date of Service 10/23/24 Chief Complaint Multiple myeloma on treatment History of Present Illness 73-year-old female with a past medical history notable for hypertension, cerebrovascular disease, degenerative joint disease, obesity, GERD, hyperglycemia and bilateral breast cancers (2015, DCIS, status postlumpectomy and radiation no hormonal therapies. 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 That prompted a work-up for an occult malignancy that revealed that the patient had multiple myeloma. Her initial work-up was done at [facility] in [place]. She was advised quadruple therapy followed by high-dose chemotherapy and stem cell transplant. She felt too nervous about the aggressiveness of this approach. She then went to [facility] and was seen by Dr. Barakat for a second opinion where she wasadvised modified VRd(lite), for remission induction to be reevaluated for high-dose chemotherapy with melphalan followed by autologous stem cell transplant depending on her response. She requested care closer to her home town, [place], but within the [facility] network and was therefore referred to [facility] and she was first seen on June 02, 2021.. Her work-up included: Bone marrow aspirate and biopsy April 2021: Bone marrow involvement with plasma cell myeloma with 60 to 70% plasma cells. Cytogenetics 46XX. FISH positive for gain of 1q and hyperploidy of chromosome 3. Negative for hyperploidy of chromosome 7 and 11 and deletion of TP 53. PET/CT April 2021 showed a mildly hypermetabolic lytic lesion in the posterior aspect of L4. Diffuse metabolic activity of the remaining osseous structures consistent with involvement by myeloma and a discrete focal metabolicactivity in the cecum and sigmoid colon. Colonoscopy May 2021 to clarify abnormal PET: Sigmoid diverticulosis, otherwise no abnormalities and no specimen collected. Serum protein electrophoresis with immune fixation revealing a monoclonal IgG kappa of 2.6 g per DLNov2020. Urinalysis was positive for protein, 24-hour urine protein was 186 mg April 2021. Beta-2 microglobulin 3.May. Serologic tests for hepatitis B and C were negative. A normocytic anemia with a hemoglobin of 10.9, WBC 3.4, absolute neutrophil count of 1.34 and platelet count of 289, May 2021. Iron profile showed an iron saturation of 17%, elevated TIBC and elevated serum ferritin May 2021. Creatinine 0.9, normal calcium May 2021. Uric acid was elevated at 12.3, March 2021 and she was placed on allopurinol then. Treatment summary and response: * Modified VRd June 16-, February 16 2022 CR Declined myelo ablative melphalan with autologous stem cell transplantation. * Maintenance Velcade dexamethasone March 022021-December 2022 (Velcade day 1 and 15 of a 28-day cycle and dexamethasone 20 mg day 1 and 15 of each cycle); patient initially was not compliant with prescription instructions but reported better compliance in April 2022 when her M protein relapsed * Velcade dexamethasone (3 weeks on 1 week rest of a 28-day cycle with dexamethasone 40 mg weekly with Velcade) January 14, 2023- OK * VRd resumed April?September 2023 (Velcade ;3 weeks on 1 week rest ; dexamethasone 40 mg weekly and lenalidomide/Revlimid 25 Mg days 1-14; cycle length 28 days) deeper OK then patient requested a break from therapy due to side effects. * October ?January holiday from treatment requested by patient. * February 07, 2024?August 28, 2024 and low-dose dexamethasone (20 mg on day 1 and omitting day 2 asdecided on by patient), OK then subtle progression * September 2024 DRd (daratumumab, Revlimid, dexamethasone. Interval History Day 22 toxicity check [facility] Medical History Encounter for monoclonal antibody treatment for malignancy Hypokalemia Low back pain Impacted cerumen of right ear Dehydration Tenderness of back Neuropathy Dermatitis Tooth pain Encounter for chemotherapy management Iron deficiency Anemia in chronic illness Left hip pain Encounter for education Degenerative joint disease Breast cancer Multiple myeloma Hyperuricemia Carotid stenosis Hyperglycemia Carpal tunnel syndrome GERD (gastroesophageal reflux disease) Granuloma annulare COVID-19 Benign hypertension Surgical History History of cataract extraction History of lumpectomy of both breasts History of left breast biopsy History of lymph node biopsy History of cervical polypectomy History of tubal ligation History of right breast biopsy History of cholecystectomy Hx of tonsillectomy Family History Father Lung cancer Smoker Brother , passed at 6 months of age Aplastic anemia Social History household members: spouse Smoking Status: Never smoker alcohol intake: never substance use type: does not use caffeine: Yes Type: coffee Number of servings: 1 ROS Constitutional Constitutional: Reports systems reviewed and no addt'l complaints, except as documented; Denies fatigue, fever(s), night sweats or weight loss Eyes Eyes: Reports systems reviewed and no addt'l complaints, except as documented; Denies change in vision ENT HEENT: Reports systems reviewed and no addt'l complaints, except as documented, headache(s), hearing loss, nasal discharge and sinus pressure; Denies mouth lesions Cardiovascular Cardiovascular: Reports systems reviewed and no addt'l complaints, except as documented and edema; Denies chest pain with activity Respiratory/Chest Respiratory/Chest: Reports systems reviewed and no addt'l complaints, except as documented and dyspnea on exertion; Denies wheezing Gastrointestinal Gastrointestinal: Reports systems reviewed and no addt'l complaints, except as documented, diarrhea, dyspepsia and other Details: Had a bout of diarrhea, resolved ; Denies abdominal pain, anorexia, dysphagia, heartburn, hematochezia, melena, nausea or vomiting Genitourinary Genitourinary: Reports systems reviewed and no addt'l complaints, except as documented; Denies dysuria or hematuria Musculoskeletal Musculoskeletal: Reports systems reviewed and no addt'l complaints, except as documented, arthralgias and back pain; Denies joint pain Integumentary Integumentary: Reports systems reviewed and no addt'l complaints, except as documented, new lesions, rash and other Details: Granuloma annulare manageable with topical steroids on a as needed basis. End of August 2024 broke out with shingles again under the right breast. Neurologic Neurologic: Reports systems reviewed and no addt'l complaints, except as documented; Denies focal weakness or paresthesias Psychiatric Psychiatric: Reports systems reviewed and no addt'l complaints, except as documented Endocrine Endocrinology: Reports systems reviewed and no addt'l complaints, except as documented Hematologic/Lymphatic Hematologic/Lymphatic: Reports systems reviewed and no addt'l complaints, exceptas documented; Denies easy bleeding, easy bruising or lymphadenopathy Allergic/Immunologic Allergic/Immunologic: Reports systems reviewed and no addt'l complaints, except as documented Intake Vital Signs 10/02/24 08:05 10/23/24 15:14 Height 4 ft 9 in 4 ft 9 in Weight: 67.755 kg BMI 32.3 BP 156/77 H Blood Pressure Location Lt brachial Position Sitting Respiration 16 Pulse 72 Pulse Source Monitor Temp 98.8 F Temperature Source Temporal Artery Pulse Oximetry (%) 92 Oxygen Delivery Method room air Intake Is patient in pain?: No Allergies No Known Allergies Allergy (Verified 10/23/24 15:16) Medications ?Medication ?Instructions ?Recorded ?Confirmed ?Type allopurinol 100 mg tablet 100 mg PO DAILY 06/02/2108/14 History furosemide 40 mg tablet 40 mg PO DAILY 06/02/2108/14 History potassium citrate 10 mEq (1,080 40 meq PO DAILY 10/23/24 History mg) tablet,extended release [employer] Pro DHA [place]-3 1 cap PO DAILY 2 10/23/24 History Osteoprime Ultra 2 tab PO BID 07/14/21 History Ten Mushroom 2 cap PO BID 07/14/21 History aspirin 81 mg tablet,delayed 81 mg PO DAILY 08/04/21 0 10/23/24 History release (Adult Low Dose Aspirin) Disability Placsotero #1 ea 12/15/21 10/23/24 Rx Euromedica Nerve Complex 1 cap PO BID 06/22/22 History valsartan 40 mg tablet 40 mg PO DAILY 07/19/2308/14 History dexamethasone 4 mg tablet 20 mg (5 x 4 mg) PO QDAY #10 0 tabs 01/26/24 10/23/24 Rx acyclovir 400 mg tablet 400 mg PO BID 30 days #60 ta bs 02/02/24 10/23/24 Rx famotidine 20 mg tablet (Pepcid) 20 mg PO DAILY #30 ta bs 02/02/24 10/23/24 Rx Kidney Aid PO 02/21/24 10/23/24 History NAC PO 02/21/24 10/23/24 History alpha lipoic acid 125 mg-biotin 95 cap PO 02/21/2408/14 History mcg-berberine 250 mg capsule cholecalciferol (vitamin D3) 125 125 mcg PO QDAY 02/2010/23/24 History mcg (5,000 unit) capsule Paur'de'arc PO 03/20/24 10/23/24 History naproxen 500 mg tablet 500 mg PO BID 03/27/2410/23 History potassium chloride 20 mEq 40 meq (2 x 20 mEq) PO DAILY #6 06/05/24 10/23/24 Rx tablet,extended release(part/cryst) tabs spirolena PO 08/28/24 10/23/24 History nifedipine 60 mg tablet,extended 30 mg PO DAILY 10/23/24 History release Have you fallen in the past year?: No October 23, 2024 keshawn ANC 1.1 Exam Physical Exam Narrative ECOG 1 Const alert, oriented x3 and no apparent distress Coding Level of Care Code Off vis,est,level 3 Exam Problem Focused Diagnoses Multiple myeloma, remission status unspecified C90.00 Multiple myeloma remission status: unspecified Herpes zoster without complication B02.9 Herpes zoster complications: without complications Assessment and Plan Assessment and Plan (1) Multiple myeloma: Status: Chronic Qualifiers: Multiple myeloma remission status: unspecified Qualified Code(s): C90.00 - Multiple myeloma not having achieved remission (2) Shingles: Status: Resolved Qualifiers: Herpes zoster complications: without complications Qualified Code(s): B02.9 - Zoster without complications Plan 74-year-old female with IgG kappa multiple myeloma Durie Shokan stage IIA, R- ISSstage 2,? 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 Initial work-up was done at [facility], patient was seen in second opinion at [facility] by Dr. Barakat. Patient requested care within the [facility] network at [facility] closer to home. #1 started modified VRd June 16, 2021.? Followings 2 cycle she had more than 50% drop in her M protein consistent with partial remission of her disease and treatment was tolerated without any grade 3 or 4 toxicities or delays. By December 2021 after 12 cycles M protein was no longer detectable. She declined high-dose melphalan with autologous stem cell transplant at [facility] #2 started March 02, 2022 maintenance Velcade 1.3 Mg per metered square subcu days 1 and 15, withlow dose weekly dexamethasone at a reduced dose of 20 mg also on the days 1 and 15. Was not compliant with dexamethasone until April 27, 2022 when her M protein was detected again on SPEP (but too small to quantify). She has an early asymptomatic relapse of her myeloma (M protein riseof 500 Mg per DL from keshawn), agreed to resume standard schedule of Velcade dexamethasone (3 weeks on 1 week rest 28-day cycles) December 2022. She remained in partial remission but not as deep as when she was on triple therapy. #3 elected to resume VRd starting April and M protein did trend down into a partial remission. However patient requested a break from therapy starting October 2023 due to troubling side effects (diarrhea, neuropathy, lower extremities edema, irritability and lack of sleep on days of steroids). Asexpected, her disease relapsed, though she remained symptom free. #4 daratumumab subcutaneously with dexamethasone (she decided to take dexamethasone 20 Mg day 1) January?August 2024: OK then subtle progression. #5 Started DRd: Daratumumab, Revlimid (25 mg days 1-21 of a 28-day cycle) and dexamethasone (20 mg days 1 and 2) October 02, 2024, tolerated with no grade 3 or 4 toxicities with keshawn ANC 1.1 on day 22. Developed acute shingles localized right upper inner thigh July 2023, and againunder the right breast August 2024 admitted that she has been taking acyclovir only intermittently and never received shingles vaccine. 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 Barakat 1-continue DRd, due to start cycle 2 in 1 week contention blood counts.. 2-VTE prophylaxis with low-dose aspirin 81 mg daily.. 3-infection prophylaxis : shingles prophylaxis with acyclovir 400 mg twice daily, advised to take faithfully.? Has been advised on several occasions to receive shingles vaccine but has not consented.Will prescribe a 10-day course of Aileen acyclovir for acute shingles September 25, 2024. 4-bone supportive therapy .? Patient still needs completion of dental? work and clearance prior. She believes that these dental problems are chronic ongoing unlikely to resolve. Patient was seen impression and plan as above summarized discussed.? Yusuf Leyva MD [employer], [facility] Divisions of Medical Oncology & Hematology Department of Internal Medicine [facility] [place] [id number] This note was generated? using a voice recognition system software.? Although itwas reviewed by theauthor prior to finalization, it may still contain incorrectwords, spelling, and punctuation that were not noted when reviewing prior to saving.? If a clinically significant typo or inaccurately typed? phrase is noted, please notify the author. Clinical Quality Measures Falls Risk Screening/Assistive Devices Have you fallen in the past year?: No 10/23/24 0686 daksha VILLANUEVA> Date _ Yusuf Leyva MD [facility] Signature: Date (if applicable) CC: ~ [facility]05-29-2025 Evaluation + Plan note* Assessment & Plan Note - SEUN Lundy DNP - 10/18/2024 10:21 AM EDTAssociated Problem(s): HTN (hypertension), benign Blood pressure seems to be good however she is complaining of her head feeling funny, I have given him permission to just use the 30 mg of nifedipine for the next 2 weeks, she is to call me in 2 weeks with her blood pressure readings, goal blood pressure is 130/80, if she is staying within this range then we can continue her dose of 30 mg nifedipine daily with 40 mg of losartan daily, [facility] Work Phone: 1(577) 675-499405-29-2025 Miscellaneous Notes* Assessment & Plan Note - SEUN Lundy DNP - 10/18/2024 10:21 AM EDTAssociated Problem(s): HTN (hypertension), benign Blood pressure seems to be good however she is complaining of her head feeling funny, I have given him permission to just use the 30 mg of nifedipine for the next 2 weeks, she is to call me in 2 weeks with her blood pressure readings, goal blood pressure is 130/80, if she is staying within this range then we can continue her dose of 30 mg nifedipine daily with 40 mg of losartan daily, documented in this [facility] Work Phone: 1(982) 427-527705-29-2025 History of Present illness Narrative* Maddi Garcia, CONCEPCION-HERNANDEZ, DNP - 10/18/2024 10:00 AM EDT Subjective Patient ID: Lauri Read is a 74 y.o. female who presents for Follow-up (1 year/Review labs). Patient being seen in follow-up for resistant hypertension Labs reviewed Hemoglobin A1c 6.1 Total cholesterol 127, HDL 52, LDL 58, triglycerides 89 Glucose 107 Renal function with a BUN of 23 and creatinine was 0.81 Sodium 136, potassium 4.5, chloride 103, bicarb 24.1 She was recently been complaining of her head feeling fuzzy, denies any lightheadedness however shedid have a syncopal episode on October 14, she had checked her blood pressure prior to that and it was 101/62, when the squad came it was 128/58 Her blood pressure has been running in the low 110's with a high of 131/72 She did begin to take just 130 mg pill of nifedipine per day since the as she had some left from a previous prescription She also has restarted lenalidomide and has had some diarrhea secondary to this Review of Systems Constitutional: Negative. HENT: Negative. Eyes: Negative. Respiratory: Negative. Cardiovascular: Negative. Gastrointestinal: Negative. Endocrine: Negative. Genitourinary: Negative. Musculoskeletal: Negative. Skin: Negative. Allergic/Immunologic: Negative. Neurological: Negative. Hematological: Negative. Psychiatric/Behavioral: Negative. Objective Physical Exam Constitutional: Appearance: Normal appearance. HENT: Head: Normocephalic and atraumatic. Mouth/Throat: Mouth: Mucous membranes are moist. Eyes: Extraocular Movements: Extraocular movements intact. Cardiovascular: Rate and Rhythm: Normal rate and regular rhythm. Heart sounds: Normal heart sounds. Pulmonary: Effort: Pulmonary effort is normal. Breath sounds: Normal breath sounds. Abdominal: General: Bowel sounds are normal. Palpations: Abdomen is soft. Musculoskeletal: General: Normal range of motion. Skin: General: Skin is warm and dry. Neurological: Mental Status: She is alert. Psychiatric: Behavior: Behavior normal. Thought Content: Thought content normal. Assessment/Plan Problem List Items Addressed This Visit ICD-10-CM HTN (hypertension), benign - Primary I10 Blood pressure seems to be good however she is complaining of her head feeling funny, I have given him permission to just use the 30 mg of nifedipine for the next 2 weeks, she is to call me in 2 weeks with her blood pressure readings, goal blood pressure is 130/80, if she is staying within this range then we can continue her dose of 30 mg nifedipine daily with 40 mg of losartan daily, Relevant Medications NIFEdipine ER (Adalat CC) 30 mg 24 hr tablet Other Relevant Orders Comprehensive metabolic panel Follow Up In Nephrology Hyperuricemia E79.0 Relevant Medications allopurinol (Zyloprim) 100 mg tablet Bilateral leg edema R60.0 Relevant Medications furosemide (Lasix) 40 mg tablet Resistant hypertension-currently controlled on nifedipine 30 mg Peripheral Edema with Volume Overload-stable on furosemide Possible Sleep Apnea Obesity HLD Acid Reflux Hyperuricemia Multiple Myeloma NSAID Use. SEUN Lundy DNP 10/18/24 9:58 AM documented in this [facility] Work Phone: 1(335) 276-721505-06-2025 Evaluation note* Diagnosis Onset Date Resolution Status Admit Date Multiple myeloma chronic September 25, 2024 10:11am Shingles resolved September 25, 2024 10:11am Multiple myeloma chronic September 7:40am Shingles resolved October 02, 2024 7:40am Multiple myeloma chronic October 2:16pm Shingles resolved October 23, 2024 2:16pm Multiple myeloma chronic October 10:45am Multiple myeloma chronic November 9:51am Multiple myeloma chronic November 9:38am Multiple myeloma chronic December 252024 9:35am Multiple myeloma chronic 2024 1:58pm Shingles resolved January 22, 2025 1:58pm [facility] Work Phone: 1(744) 369-520604-08-2025 Chief complaint+Reason for visit Narrative * Chief Complaint Admit Date 4 WKS - LABS - MANUEL August 28, 2024 10:1 1am CHEMO EDUCATION September 19, 2024 8:5 7am 4 WKS - LABS - [facility] September 25, 2024 10:11a m F/U - LABS - [facility] October 02, 2024 7:40a m TOX CHECK - LABS October 23, 2024 2:16p m 4 WKS - LABS - [facility] October 30, 2024 10:4 5am TOX CHECK - LABS November 20, 2024 9:51a m 4 WKS - LABS - [facility] November 27, 2024 9:38a m 4 WKS - LABS - [facility] December 25, 2024 9:3 5am DARAZELEX FAST PRO December 25, 2024 9:4 5am Reason for Visit Admit Date Encounter for monoclonal antibody treatm ent for malignancy August 28, 2024 10:11am Multiple myeloma August 28, 2024 10:1 1am Encounter for monoclonal antibody treatm ent for malignancy September 19, 2024 8:57am Multiple myeloma September 19, 2024 8:5 7am Multiple myeloma September 25, 2024 10:11a m Shingles September 25, 2024 10:11a m Multiple myeloma October 02, 2024 7:40a m Shingles October 02, 2024 7:40a m Multiple myeloma October 23, 2024 2:16p m Shingles October 23, 2024 2:16p m Multiple myeloma October 30, 2024 10:4 5am Multiple myeloma November 20, 2024 9:51a m Multiple myeloma November 27, 2024 9:38a m Multiple myeloma December 25, 2024 9:3 5am [facility] [employer] Work Phone: 1([phone]) 226-197004-08-2025 Evaluation note* Diagnosis Onset Date Resolution Status Admit Date Encounter for monoclonal antibody treatment for malignancy acute August 28, 2024 10:11am Multiple myeloma chronic August 10:11am Encounter for monoclonal antibody treatment for malignancy acute September 19, 2024 8:57am Multiple myeloma chronic September 192024 8:57am Multiple myeloma chronic September 25, 2024 10:11am Shingles resolved September 25, 2024 10:11am Multiple myeloma chronic September 7:40am Shingles resolved October 02, 2024 7:40am Multiple myeloma chronic October 2:16pm Shingles resolved October 23, 2024 2:16pm Multiple myeloma chronic October 10:45am Multiple myeloma chronic November 9:51am Multiple myeloma chronic November 9:38am Multiple myeloma chronic December 252024 9:35am [facility] Work Phone: 1(652) 706-114504-03-2025 History of Present illness Narrative* Ryan Couch MD - 08/23/2024 1:00 PM EDT Chief Complaint Patient presents with Follow-up Pt here for 1 year fu. Pt has no complaints HPI: I was requested by Dr. Frazier to evaluate this patient in consultation for cardiac assessment. Mrs. Lauri Read is a 74 y.o. year old non-smoker female patient with past medical history significant for hypertension, prediabetes, obesity, hyperlipidemia, carotid stenosis, leg edema, hyperuricemia, multiple myeloma, coming for assessment of bilateral leg edema. Patient reports that 6 days after having COVID, she started experiencing worsening swelling in both legs. She sometimes reports SOB that she attributes to deconditioning and sequels from COVID. She denies Patient denies chest pain, shortness of breath, palpitations, leg edema, lightheadedness, headaches, fever, chills, orthopnea, paroxysmal nocturnal dyspnea or syncope. EKG shows normal sinus rhythm with no signs of ACS. Prior echo (2019) showing preserved LVEF. Patient returns today stating that is asymptomatic from the cardiovascular standpoint and feeling fine. Has been compliant to the medication. Denies chest pain, shortness of breath, palpitations, legedema, lightheadedness, headaches, fever, chills, orthopnea, paroxysmal nocturnal dyspnea or syncope. Past Medical History Past Medical History: Diagnosis Date Allergic 1958 Anemia 2021 Arthritis 2012 Asthma 1958 Cancer (Multi) 2015 Cataract 2014 GERD (gastroesophageal reflux disease) 2004 Hypertension 2005 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 Personal history of other medical treatment History of mammography, diagnostic Urinary tract infection 1970 Varicella 1957 Visual impairment 2009 Past Surgical History Past Surgical History: Procedure Laterality Date ADENOIDECTOMY 1957 BREAST SURGERY 2014 CHOLECYSTECTOMY 1976 EYE SURGERY 1998 LYMPH NODE BIOPSY 2014 OTHER SURGICAL HISTORY 05/10/2019 Cholecystectomy OTHER SURGICAL HISTORY 05/10/2019 Breast biopsy OTHER SURGICAL HISTORY 05/10/2019 Tubal ligation OTHER SURGICAL HISTORY 05/21/2021 Dilation and curettage TONSILLECTOMY 1957 TUBAL LIGATION 1989 WISDOM TOOTH EXTRACTION 1979 Past Family History Family History Problem Relation Name Age of Onset Hyperlipidemia Mother Lavinia Lowe Miscarriages / Stillbirths Mother Lavinia Lowe Lung cancer Father Danny Lowe Cancer Father Danny Lowe Thyroid disease Sister Asthma Paternal Grandmother Stefanie Lowe Allergy History No Known Allergies Past Social History Social History Socioeconomic History Marital status: Tobacco Use Smoking status: Never Smokeless tobacco: Never Vaping Use Vaping status: Never Used Substance and Sexual Activity Alcohol use: Not Currently Drug use: Never Sexual activity: Yes Partners: Male control/protection: Female Sterilization Comment: Post menopausal Social Drivers of Health Financial Resource Strain: Low Risk (12/18/2019) Received from [facility] Overall Financial Resource Strain (CARDIA) Difficulty of Paying Living Expenses: Not hard at all Food Insecurity: No Food Insecurity (12/18/2019) Received from [facility] Hunger Vital Sign Worried About Running Out of Food in the Last Year: Never true Ran Out of Food in the Last Year: Never true Transportation Needs: No Transportation Needs (12/18/2019) Received from [facility] PRAPARE - Transportation Lack of Transportation (Medical): No Lack of Transportation (Non-Medical): No Social History Tobacco Use Smoking Status Never Smokeless Tobacco Never Objective Data: Last Recorded Vitals: Vitals: 08/23/24 1250 BP: 122/62 BP Location: Left arm Patient Position: Sitting Pulse: 92 SpO2: 95% Weight: 66.2 kg (146 lb) Height: 1.448 m (4' 9) Last Labs: CBC - No results in last year. _ _ _ _ CMP - 10/04/2023: 6:54 AM 9.0 6.5 24 --- 0.3 _ 4.0 29 65 PTT - No results in last year. _ _ _ TROPHS Date/Time Value Ref Range Status 07/09/2023 06:08 PM 14 0 - 13 ng/L Final 07/09/2023 04:05 PM 17 0 - 13 ng/L Final BNP Date/Time Value Ref Range Status 07/09/2023 04:05 PM 90 0 - 99 pg/mL Final HGBA1C Date/Time Value Ref Range Status 04/06/2024 07:11 AM 6.2 See comment % Final 10/04/2023 06:54 AM 5.9 see below % Final LDLCALC Date/Time Value Ref Range Status 10/04/2023 06:54 AM 71 <=99 mg/dL Final Comment: Near Borderline AGE Desirable Optimal High High Very High 0-19 Y 0 - 109 --- 110-129 >/= 130 ---- 20-24 Y 0 - 119 --- 120-159 >/= 160 ---- >24 Y 0 - 99 100-129 130-159 160-189 >/=190 VLDL Date/Time Value Ref Range Status 10/04/2023 06:54 AM 29 0 - 40 mg/dL Final 08/25/2022 07:41 AM 19 0 - 40 mg/dL Final 04/08/2021 09:38 AM 17 0 - 40 mg/dL Final 01/07/2021 06:55 AM 16 0 - 40 mg/dL Final Patient Medications: Outpatient Encounter Medications as of 08/23/2024 Medication Sig Dispense Refill allopurinol (Zyloprim) 100 mg tablet Take 1 tablet (100 mg) by mouth once daily. 30 tablet 11 amoxicillin (Amoxil) 500 mg capsule Take 1 capsule (500 mg) by mouth 2 times a day for 6 days. 12 capsule 0 aspirin 81 mg chewable tablet Chew 1 tablet (81 mg) once daily. 30 tablet 11 lmiraxochif-vtyethmxuiavj-znes (DARZALEX FASPRO SUBQ) Inject under the skin. dexAMETHasone (Decadron) 4 mg tablet (Patient taking differently: Take 10 tablets (40 mg) by mouth if needed for vomiting or nausea.) famotidine (Pepcid) 20 mg tablet Take 1 tablet (20 mg) by mouth 2 times a day. 200 tablet 1 furosemide (Lasix) 40 mg tablet Take 1 tablet (40 mg) by mouth once daily. And may take one extra for increase in peripheral edema 60 tablet 5 gemfibrozil (Lopid) 600 mg tablet Take 1 tablet (600 mg) by mouth once daily. ketoconazole (NIZOral) 2 % cream Apply 1 Application topically 1 time if needed. NIFEdipine ER (Adalat CC) 60 mg 24 hr tablet Take 1 tablet (60 mg) by mouth once daily in the morning. Take before meals. Do not crush, chew, or split. 100 tablet 1 valsartan (Diovan) 40 mg tablet Take 1 tablet (40 mg) by mouth once daily. 100 tablet 1 acyclovir (Zovirax) 400 mg tablet Take 0.5 tablets (200 mg) by mouth once daily. pflvoovqgbsebuj-tshibuart-OE (Bromfed DM) 2-30-10 mg/5 mL syrup Take 5 mL by mouth every 4 hours ifneeded for allergies, congestion or cough. (Patient not taking: Reported on 08/23/2024) 120 mL 0 doxycycline (Vibramycin) 100 mg capsule Take 1 capsule (100 mg) by mouth 2 times a day for 10 days.Take with at least 8 ounces (large glass) of water, do not lie down for 30 minutes after (Patient not taking: Reported on 08/23/2024) 20 capsule 0 No facility-administered encounter medications on file as of 08/23/2024. Physical Exam: General: alert, oriented and in no acute distress HEENT: NC/AT; EOMI; PERRLA, external ear is normal Neck: supple; trachea midline; no masses; no JVD Chest: clear breath sounds bilaterally; no wheezing Cardio: regular rhythm, S1S2 normal, systolic murmur 2+/6+ RUSB Abdomen: Soft, non-tender, non-distension, no organomegaly Extremities: Edema 1+/3+ LE b/l Neuro: Grossly intact Psychiatric: Normal mood and affect Past Cardiology Results (Last 3 Years): EKG: ECG 12 Lead 05/31/2024 ECG 12 Lead 07/09/2023 Echo: Echo Results: No results found for this or any previous visit from the past 365 days. Cath: No results found for this or any previous visit from the past 1095 days. CV NCDR CATHPCI V5 COLLECTION FORM Stress Test: No results found for this or any previous visit from the past 1095 days. Cardiac Imaging: No results found for this or any previous visit from the past 1095 days. Assessment/Plan Mrs. Lauri Read is a 73 y.o. year old non-smoker female patient with past medical history significant for hypertension, prediabetes, obesity, hyperlipidemia, carotid stenosis, leg edema, hyperuricemia, multiple myeloma, coming for assessment of bilateral leg edema. Patient reports that 6 days after having COVID, she started experiencing worsening swelling in both legs. She sometimes reports SOB that she attributes to deconditioning and sequels from COVID. She denies Patient denies chest pain, shortness of breath, palpitations, leg edema, lightheadedness, headaches, fever, chills, orthopnea, paroxysmal nocturnal dyspnea or syncope. Assessment # Leg edema post COVID - Bilateral leg edema - EKG shows normal sinus rhythm with no signs of ACS. - Prior echo (2019) showing preserved LVEF. - Worsening chronic leg edema may be related to COVID sequels - Echocardiogram 1. Left ventricular systolic function is hyperdynamic with a 65-70% estimated ejection fraction. 2. Spectral Doppler shows an impaired relaxation pattern of left ventricular diastolic filling. 3. Elevated transaortic gradients are likely secondary to hyperdynamic flow. 4. Poorly visualized anatomical structures due to suboptimal image quality. - US Vascular Lower extremities: Right Lower Venous: No evidence of acute deep vein thrombus visualized in the right lower extremity. Cannot rule out thrombus in non-visualized peroneal vein due to body habitus. Left Lower Venous: No evidence of acute deep vein thrombus visualized in the left lower extremity. - CT calcium scoring is 192 - Keep ASA 81mg daily. - Patient counseled to start statins, however she does not want to start it due to fear of muscle pain. We will respect her wishes at this point. - Follow up yearly. # Hypertension - Controlled blood pressure. - Keep current medications with Valsartan 40mg, Nifedipine 60mg daily. - Patient counseled to keep a healthy lifestyle including regular exercise and low-sodium diet. - Recommended home blood pressure monitoring. - Goal of BP < 130/80mmHg. # Hypertriglyceridemia - Controlled by PCP. - Keep home medication with Gemfibrozil daily. - Patient counseled to start statins, however she does not want to start it due to fear of muscle pain. We will respect her wishes at this point. - Counseled on healthy diet and regular exercise. # Hyperuricemia - Keep allopurinol We have discussed the most common side effects of the prescribed medications, indications, drug interactions, risks, complications, and alternatives of medications/therapeutics were explained and discussed. The patient has been requested to monitor closely for any untoward side effects or complications of medications. The patient has been strongly advised to be compliant with the recommendations,all the questions and concerns have been addressed. The patient has been also instructed to call, to return sooner or to go to the emergency department if symptoms persist or get worsen. The patient voiced understanding and denies any further questions at this time. This note was transcribed using the [employer] Dictation system. There may be grammatical, punctuation,or verbiage errors that occur with voice recognition programs. Counseling greater than 50% of visit regarding all cardiac issues. Thank you, Dr. Frazier, for allowing me to participate in the care of this patient. Please do not hesitate to contact me with any further questions or concerns. Ryan Couch MD Cardiology [facility] Work Phone: [phone]) [phone] History of Present illness Narrative* Shira Millard APRN-PROGRAM PRODUCTION SPECIALIST - 08/13/2024 12:20 PM EDT [facility] PRIYANK NOTE: Name: Lauri Read, 74 y.o. CSN:[id number] PCP: Thelma Frazier DO ALL: No Known Allergies History: Chief Complaint: Sinusitis (Sinus drainage/congestion x 1 week ) Encounter Date: 08/13/2024 HPI: The history was obtained from the patient. Lauri is a 74 y.o. female, who presents with a chiefcomplaint of Sinusitis (Sinus drainage/congestion x 1 week ) Sinus pressure and pain, nasal congestion, bilateral ear pain/fullness, productive cough, mild sore throat, and fatigue. Denies shortness of breath, denies wheezing. Symptoms began 10 days, reports symptoms have progressively worsened since onset. Denies any body aches, abdominal pain, chest pain, rashes, urinary symptoms, vomiting, anddiarrhea. Denies any lightheadedness or dizziness; no changes in mental status. No swelling in legs. Appetite is decreased; is able to eat and drink fluids without difficulty. PMHx: Past Medical History: Diagnosis Date Allergic 1958 Anemia 2021 Arthritis 2012 Asthma 1958 Cancer (Multi) 2015 Cataract 2014 GERD (gastroesophageal reflux disease) 2004 Hypertension 2004 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 Personal history of other medical treatment History of mammography, diagnostic Urinary tract infection 1970 Varicella 1957 Visual impairment 2009 Current Outpatient Medications Medication Sig Dispense Refill allopurinol (Zyloprim) 100 mg tablet Take 1 tablet (100 mg) by mouth once daily. 30 tablet 11 aspirin 81 mg chewable tablet Chew 1 tablet (81 mg) once daily. 30 tablet 11 rmvgrnpvtdh-lwdmmqsgwollz-fvsx (DARZALEX FASPRO SUBQ) Inject under the skin. famotidine (Pepcid) 20 mg tablet Take 1 tablet (20 mg) by mouth 2 times a day. 200 tablet 1 furosemide (Lasix) 40 mg tablet Take 1 tablet (40 mg) by mouth once daily. And may take one extra for increase in peripheral edema 60 tablet 5 gemfibrozil (Lopid) 600 mg tablet Take 1 tablet (600 mg) by mouth once daily. ketoconazole (NIZOral) 2 % cream Apply 1 Application topically 1 time if needed. NIFEdipine ER (Adalat CC) 60 mg 24 hr tablet Take 1 tablet (60 mg) by mouth once daily in the morning. Take before meals. Do not crush, chew, or split. 100 tablet 1 valsartan (Diovan) 40 mg tablet Take 1 tablet (40 mg) by mouth once daily. 100 tablet 1 awlsdszyuhhjztz-fkxrmflbu-KM (Bromfed DM) 2-30-10 mg/5 mL syrup Take 5 mL by mouth every 4 hours ifneeded for allergies, congestion or cough. (Patient not taking: Reported on 08/13/2024) 120 mL 0 dexAMETHasone (Decadron) 4 mg tablet (Patient not taking: Reported on 08/13/2024) doxycycline (Vibramycin) 100 mg capsule Take 1 capsule (100 mg) by mouth 2 times a day for 10 days.Take with at least 8 ounces (large glass) of water, do not lie down for 30 minutes after 20 capsule0 No current facility-administered medications for this visit. PMSx: Past Surgical History: Procedure Laterality Date ADENOIDECTOMY 1957 BREAST SURGERY 2014 CHOLECYSTECTOMY 1976 EYE SURGERY 1997 LYMPH NODE BIOPSY 2014 OTHER SURGICAL HISTORY 05/10/2019 Cholecystectomy OTHER SURGICAL HISTORY 05/10/2019 Breast biopsy OTHER SURGICAL HISTORY 05/10/2019 Tubal ligation OTHER SURGICAL HISTORY 05/21/2021 Dilation and curettage TONSILLECTOMY 1957 TUBAL LIGATION 1989 WISDOM TOOTH EXTRACTION 1979 Fam Hx: Family History Problem Relation Name Age of Onset Hyperlipidemia Mother Lavinia Lowe Miscarriages / Stillbirths Mother Lavinia Lowe Lung cancer Father Danny Lowe Cancer Father Danny Lowe Thyroid disease Sister Asthma Paternal Grandmother Stefanie Lowe SOC. Hx: Social History Socioeconomic History Marital status: Spouse name: Not on file Number of children: Not on file Years of education: Not on file Highest education level: Not on file Occupational History Not on file Tobacco Use Smoking status: Never Smokeless tobacco: Never Vaping Use Vaping status: Never Used Substance and Sexual Activity Alcohol use: Never Drug use: Never Sexual activity: Yes Partners: Male control/protection: Female Sterilization Comment: Post menopausal Other Topics Concern Not on file Social History Narrative Not on file Social Drivers of Health Financial Resource Strain: Low Risk (12/18/2019) Received from [facility] Overall Financial Resource Strain (CARDIA) Difficulty of Paying Living Expenses: Not hard at all Food Insecurity: No Food Insecurity (12/18/2019) Received from [facility] Hunger Vital Sign Worried About Running Out of Food in the Last Year: Never true Ran Out of Food in the Last Year: Never true Transportation Needs: No Transportation Needs (12/18/2019) Received from [facility] PRAPARE - Transportation Lack of Transportation (Medical): No Lack of Transportation (Non-Medical): No Physical Activity: Not on file Stress: Not on file Social Connections: Not on file Intimate Partner Violence: Not on file Housing Stability: Not on file Vitals: 08/13/24 1224 BP: 151/81 Pulse: 80 Resp: 14 Temp: 36.8 C (98.3 F) SpO2: 97% Physical Exam Vitals and nursing note reviewed. Constitutional: Appearance: Normal appearance. HENT: Head: Normocephalic and atraumatic. Right Ear: Hearing, ear canal and external ear normal. A middle ear effusion is present. Tympanic membrane is erythematous. Tympanic membrane is not bulging. Tympanic membrane has normal mobility. Left Ear: Hearing, ear canal and external ear normal. A middle ear effusion is present. Tympanic membrane is erythematous. Tympanic membrane is not bulging. Tympanic membrane has normal mobility. Nose: Congestion and rhinorrhea present. Rhinorrhea is purulent. Right Sinus: Maxillary sinus tenderness and frontal sinus tenderness present. Left Sinus: Maxillary sinus tenderness and frontal sinus tenderness present. Mouth/Throat: Lips: [place]. Mouth: Mucous membranes are moist. Pharynx: Uvula midline. Posterior oropharyngeal erythema present. No pharyngeal swelling or oropharyngeal exudate. Tonsils: No tonsillar exudate. Cardiovascular: Rate and Rhythm: Normal rate and regular rhythm. Heart sounds: Normal heart sounds. Pulmonary: Effort: Pulmonary effort is normal. Breath sounds: Normal breath sounds. Abdominal: General: Bowel sounds are normal. Skin: General: Skin is warm and dry. Neurological: Mental Status: She is alert and oriented to person, place, and time. I did personally review Lauri's past medical history, surgical history, social history, as well as family history (when relevant). In this case, I also oversaw the her drug management by reviewing hermedication list, allergy list, as well as the medications that I prescribed during the UC course and/or recommended as an out-patient (including possible OTC medications such as acetaminophen, NSAIDs , etc). After reviewing the items above, I did look at previous medical documentation, such as recent hospitalizations, office visits, and/or recent consultations with PCP/specialist. SDOH: Another factor that I considered in Lauri's care was her Social Determinants of Health (SDOH).During this UC encounter, she did not have social determinants of health. Those SDOH influencing Lauri's care are: none COURSE/MEDICAL DECISION MAKING: Lauri is a 74 y.o., who presents with a working diagnosis of 1. Acute bacterial sinusitis Lauri was seen today for sinusitis. Diagnoses and all orders for this visit: Acute bacterial sinusitis (Primary) - doxycycline (Vibramycin) 100 mg capsule; Take 1 capsule (100 mg) by mouth 2 times a day for 10 days. Take with at least 8 ounces (large glass) of water, do not lie down for 30 minutes after Continue nqvc-rzl-reodcqz supportive care, increased oral fluids, and humidified air. Plan of care reviewed with patient. If symptoms change and/or worsen will follow-up with primary care provider, return to urgent care, or go to the nearest emergency department for further evaluation. Patient states understanding and is agreeable with plan of care. Shira Millard APRN, RUPERTO Advanced Practice Provider [facility] Please note: While the patient may or may not have received printed discharge paperwork, all relevant medical findings, test results, and treatment details are accessible through the electronic medical record system. The patient is encouraged to review their chart via the patient portal for comprehensive information and follow-up instructions. documented in this [facility] Work Phone: 1(726) 563-154803-11-2025 Evaluation note* Diagnosis Onset Date Resolution Status Admit Date Encounter for monoclonal antibody treatment for malignancy acute July 31, 2024 9:40am Multiple myeloma chronic July 312024 9:40am Encounter for monoclonal antibody treatment for malignancy acute August 28, 2024 10:11am Multiple myeloma chronic August 10:11am Encounter for monoclonal antibody treatment for malignancy acute September 19, 2024 8:57am Multiple myeloma chronic September 192024 8:57am Multiple myeloma chronic September 25, 2024 10:11am Shingles resolved September 25, 2024 10:11am Multiple myeloma chronic September 7:40am Shingles resolved October 02, 2024 7:40am Multiple myeloma chronic October 2:16pm Shingles resolved October 23, 2024 2:16pm Multiple myeloma chronic October 10:45am Multiple myeloma chronic November 9:51am [employer] Work Phone: [phone] Evaluation note* Diagnosis Onset Date Resolution Status Admit Date Encounter for monoclonal antibody treatment for malignancy acute July 31, 2024 9:40am Multiple myeloma chronic July 312024 9:40am Encounter for monoclonal antibody treatment for malignancy acute August 28, 2024 10:11am Multiple myeloma chronic August 10:11am Encounter for monoclonal antibody treatment for malignancy acute September 19, 2024 8:57am Multiple myeloma chronic September 192024 8:57am Multiple myeloma chronic September 25, 2024 10:11am Shingles resolved September 25, 2024 10:11am Multiple myeloma chronic September 7:40am Shingles resolved October 02, 2024 7:40am Multiple myeloma chronic October 2:16pm Shingles resolved October 23, 2024 2:16pm Multiple myeloma chronic October 10:45am Multiple myeloma chronic November 9:51am Multiple myeloma chronic November 9:38am [employer] Work Phone: [phone] Evaluation note* Diagnosis Onset Date Resolution Status Admit Date Multiple myeloma chronic July 03, 2024 9:52am Multiple myeloma chronic July 17, 2024 9:49am Shingles resolved July 17, 2024 9:49am Encounter for monoclonal antibody treatment for malignancy acute July 31, 2024 9:40am Multiple myeloma chronic July 312024 9:40am Encounter for monoclonal antibody treatment for malignancy acute August 28, 2024 10:11am Multiple myeloma chronic August 10:11am Encounter for monoclonal antibody treatment for malignancy acute September 19, 2024 8:57am Multiple myeloma chronic September 192024 8:57am Multiple myeloma chronic September 25, 2024 10:11am Shingles resolved September 25, 2024 10:11am Multiple myeloma chronic September 7:40am Shingles resolved October 02, 2024 7:40am Multiple myeloma chronic October 2:16pm Shingles resolved October 23, 2024 2:16pm Multiple myeloma chronic October 10:45am [facility] Work Phone: 1([phone]) 858-667002-11-2025 Evaluation note* Diagnosis Onset Date Resolution Status Admit Date Multiple myeloma chronic July 03, 2024 9:52am Multiple myeloma chronic July 17, 2024 9:49am Shingles resolved July 17, 2024 9:49am Encounter for monoclonal antibody treatment for malignancy acute July 31, 2024 9:40am Multiple myeloma chronic July 312024 9:40am Encounter for monoclonal antibody treatment for malignancy acute August 28, 2024 10:11am Multiple myeloma chronic August 10:11am Encounter for monoclonal antibody treatment for malignancy acute September 19, 2024 8:57am Multiple myeloma chronic September 192024 8:57am Multiple myeloma chronic September 25, 2024 10:11am Shingles resolved September 25, 2024 10:11am Multiple myeloma chronic September 7:40am Shingles resolved October 02, 2024 7:40am Multiple myeloma chronic October 2:16pm Shingles resolved October 23, 2024 2:16pm [facility] Work Phone: 1([phone]) 503-116001-27-2025 Evaluation + Plan note* Assessment & Plan Note - Thelma Frazier DO - 06/18/2024 5:11 PM ESTAssociated Problem(s): Community acquired pneumonia -She has improved significantly -She will finish up her Augmentin and she is taking a probiotic to help offset any diarrhea -She will go back in 1 week for chest x-ray -She will continue taking Mucinex and her inhaler -She will call if she feels at any point her condition is worsening as opposed to getting better -She will discuss getting the pneumonia vaccine with her cancer specialist [facility] Work Phone: [phone]) [phone] Miscellaneous Notes* Assessment & Plan Note - Thelma Frazier DO - 06/18/2024 5:11 PM ESTAssociated Problem(s): Community acquired pneumonia -She has improved significantly -She will finish up her Augmentin and she is taking a probiotic to help offset any diarrhea -She will go back in 1 week for chest x-ray -She will continue taking Mucinex and her inhaler -She will call if she feels at any point her condition is worsening as opposed to getting better -She will discuss getting the pneumonia vaccine with her cancer specialist documented in this [facility] Work Phone: 1([phone]) 720-519701-27-2025 History of Present illness Narrative* Thelma Frazier DO - 06/18/2024 4:40 PM EST Subjective Patient ID: Lauri Read is a 74 y.o. female who presents for Follow-up (Follow up for pneumonia ). HPI She is here today for follow-up. We saw her last week and diagnosed her as having community-acquired pneumonia. She started out with influenza A and then developed a secondary bacterial infection. Weplaced her on Augmentin and the Z- Hong. She is clearly better although not healed. She states she has developed some loose stools with the Augmentin but started taking a probiotic which has helped. Wetalked about continuing with the Mucinex until her productive cough clears. I have asked that she get another chest x-ray in 1 week. I truly feel she is on the mend and she will call if she does not continue to improve on a daily basis. I also strongly urged her to get the pneumonia vaccine and should be seeing her cancer specialist very soon. She will discuss the vaccine with him and if he indicates it is okay then I told her she could return here or go to any pharmacy. I will call her when her x-ray results come back next week Objective Physical Exam Vitals and nursing note reviewed. Constitutional: General: She is not in acute distress. Appearance: Normal appearance. HENT: Head: Normocephalic and atraumatic. Eyes: Conjunctiva/sclera: Conjunctivae normal. Cardiovascular: Rate and Rhythm: Normal rate and regular rhythm. Heart sounds: Normal heart sounds. Pulmonary: Effort: No respiratory distress. Breath sounds: Wheezing present. Abdominal: Palpations: Abdomen is soft. Tenderness: There is no abdominal tenderness. There is no guarding. Musculoskeletal: General: No swelling. Normal range of motion. Skin: General: Skin is warm and dry. Neurological: General: No focal deficit present. Mental Status: She is alert and oriented to person, place, and time. Psychiatric: Behavior: Behavior normal. Assessment/Plan Problem List Items Addressed This Visit ICD-10-CM Community acquired pneumonia - Primary J18.9 -She has improved significantly -She will finish up her Augmentin and she is taking a probiotic to help offset any diarrhea -She will go back in 1 week for chest x-ray -She will continue taking Mucinex and her inhaler -She will call if she feels at any point her condition is worsening as opposed to getting better -She will discuss getting the pneumonia vaccine with her cancer specialist Relevant Orders XR chest 2 views Patient instructions As we discussed I would like for you to go for chest x-ray in 1 week from today and when the results come back I will call you. Please call me if you do not feel like you continue to improve and keeptaking your Mucinex as well as your albuterol inhaler until your symptoms subside Please talk to your cancer specialist about getting the pneumonia vaccine called Prevnar 20. This vaccine is extremely important and could help prevent life- threatening pneumonia in the future. Please let us know what he says and you are welcome to return here [facility] or you can go to your pharmacy to receive this vaccine. If you go to the pharmacy please let us know the date and we will update your vaccination record Thelma Frazier DO documented in this [facility] Work Phone: [phone]) [phone] Instructions* Patient Instructions* Thelma Frazier DO - 06/18/2024 4:40 PM EST Patient instructions As we discussed I would like for you to go for chest x-ray in 1 week from today and when the results come back I will call you. Please call me if you do not feel like you continue to improve and keeptaking your Mucinex as well as your albuterol inhaler until your symptoms subside Please talk to your cancer specialist about getting the pneumonia vaccine called Prevnar 20. This vaccine is extremely important and could help prevent life- threatening pneumonia in the future. Please let us know what he says and you are welcome to return here for the [facility] or you can go to your pharmacy to receive this vaccine. If you go to the pharmacy please let us know the date and we will update your vaccination record documented in this [facility] Work Phone: [phone]) 827-950801-21-2025 Evaluation + Plan note* Assessment & Plan Note - Thelma Frazier DO - 06/12/2024 4:46 PM ESTAssociated Problem(s): Community acquired pneumonia -She was diagnosed with influenza A 2 weeks ago and was seemingly getting better -She did started having new symptoms this past Tuesday and was seen in urgent care setting on Tuesdaywith a chest x-ray. They did not see evidence of pneumonia at that time -Today she states she is now coughing productive of thick yellow mucus and feels miserable. Her vital signs are stable. We discussed the option of going to the emergency room but we will try and treat her as an outpatient. I will be sending her for another x-ray and I explained the reasons behind doing an additional test. -I am placing her on double antibiotic therapy and I asked that she get that started tonight -We discussed drinking plenty of fluids and taking vkwo-dpz-hxmadgd plain Mucinex -I am giving her cough medicine but I told her that we do not want to completely suppress her cough. It is important that she gets the mucus up out of her lungs -She knows to go to the emergency room if she feels like her condition is worsening as opposed to getting better [facility] Work Phone: 1([phone]) 253-395801-21-2025 Miscellaneous Notes* Assessment & Plan Note - Thelma Frazier DO - 06/12/2024 4:46 PM ESTAssociated Problem(s): Community acquired pneumonia -She was diagnosed with influenza A 2 weeks ago and was seemingly getting better -She did started having new symptoms this past Tuesday and was seen in urgent care setting on Tuesdaywith a chest x-ray. They did not see evidence of pneumonia at that time -Today she states she is now coughing productive of thick yellow mucus and feels miserable. Her vital signs are stable. We discussed the option of going to the emergency room but we will try and treat her as an outpatient. I will be sending her for another x-ray and I explained the reasons behind doing an additional test. -I am placing her on double antibiotic therapy and I asked that she get that started tonight -We discussed drinking plenty of fluids and taking aawh-anr-wvayjhk plain Mucinex -I am giving her cough medicine but I told her that we do not want to completely suppress her cough. It is important that she gets the mucus up out of her lungs -She knows to go to the emergency room if she feels like her condition is worsening as opposed to getting better documented in this [facility] Work Phone: 1([phone] 376-449001-21-2025 History of Present illness Narrative* Thelma Frazier DO - 06/12/2024 4:00 PM EST Subjective Patient ID: Lauri Read is a 74 y.o. female who presents for Illness. She is here today for evaluation of a respiratory infection. She explains that a week ago she was seen and evaluated in urgent care setting and diagnosed with influenza A. She states she wasmiserable but thought she was getting better throughout the week. She explains that on Tuesday she started feeling bad again with shortness of breath and coughing. She went to an urgent care and they indicated she still had a virus. She tells me she is coughing up discolored mucus and feels miserable. We talked about repeating a chest x-ray and I will be placing her on antibiotic therapy to treat her for presumed pneumonia. She is immunocompromise some putting her on Augmentin and a Z-Hong. I told her that if at anytime she felt like she was getting worse she will go to the emergency room. I will see her back in follow-up Review of Systems Constitutional: Positive for fatigue. Negative for fever. Respiratory: Positive for cough. Negative for shortness of breath and wheezing. BARBOZA Cardiovascular: Negative for chest pain, palpitations and leg swelling. Gastrointestinal: Negative for diarrhea, nausea and vomiting. Musculoskeletal: Negative for arthralgias. Objective Physical Exam Vitals and nursing note [...] Problem List Items Addressed This Visit ICD-10-CM Community acquired pneumonia - Primary J18.9 -She was diagnosed with influenza A 2 weeks ago and was seemingly getting better -She did started having new symptoms this past Tuesday and was seen in urgent care setting on Tuesdaywith a chest x-ray. They did not see evidence of pneumonia at that time -Today she states she is now coughing productive of thick yellow mucus and feels miserable. Her vital signs are stable. We discussed the option of going to the emergency room but we will try and treat her as an outpatient. I will be sending her for another x-ray and I explained the reasons behind doing an additional test. -I am placing her on double antibiotic therapy and I asked that she get that started tonight -We discussed drinking plenty of fluids and taking bbhx-ooc-qqwctnn plain Mucinex -I am giving her cough medicine but I told her that we do not want to completely suppress her cough. It is important that she gets the mucus up out of her lungs -She knows to go to the emergency room if she feels like her condition is worsening as opposed to getting better Relevant Medications amoxicillin-pot clavulanate (Augmentin) 875-125 mg tablet azithromycin (Zithromax) 250 mg tablet benzonatate (Tessalon) 200 mg capsule Other Relevant Orders XR chest 2 views Patient instructions As I discussed with you and your in person today, I would like for you to go for chest x-ray today at [facility] because I want to make sure that we do not see signs of pneumonia I am assuming that you have pneumonia based on your symptoms and I have prescribed 2 antibiotics that I want you to start tonight. 1 is called Augmentin which she will take twice a day with food and the second 1 is due Z-Hong. This evening you will take the Augmentin and 2 tablets of the Z-Hong at the same time. Please try to take it with food. Tomorrow you will take 1 tablet from the Z-Hong in the evening for the next 4 days and you will takethe Augmentin twice a day with food for the next 9 days. I would like an update on how you are doing and we will contact you with the results of your chest x-ray Please remember drinking fluids is important and taking deep breaths and coughing occasionally is very important to get the mucus out of your lung. By drinking water this helps thin the mucus and make it easier to move out and taking plain Mucinex can also help thin the mucus to get out of your lungs If at any time you feel like you are getting worse you are encouraged to go to the emergency room Thelma Frazier DO documented in this [facility] Work Phone: 1([phone]) 123-176201-21-2025 Instructions* Patient Instructions* Thelma Frazier DO - 06/12/2024 4:00 PM EST Patient instructions As I discussed with you and your in person today, I would like for you to go for chest x-ray today at [facility] because I want to make sure that we do not see signs of pneumonia I am assuming that you have pneumonia based on your symptoms and I have prescribed 2 antibiotics that I want you to start tonight. 1 is called Augmentin which she will take twice a day with food and the second 1 is due Z-Hong. This evening you will take the Augmentin and 2 tablets of the Z-Hong at the same time. Please try to take it with food. Tomorrow you will take 1 tablet from the Z-Hong in the evening for the next 4 days and you will takethe Augmentin twice a day with food for the next 9 days. I would like an update on how you are doing and we will contact you with the results of your chest x-ray Please remember drinking fluids is important and taking deep breaths and coughing occasionally is very important to get the mucus out of your lung. By drinking water this helps thin the mucus and make it easier to move out and taking plain Mucinex can also help thin the mucus to get out of your lungs If at any time you feel like you are getting worse you are encouraged to go to the emergency room documented in this [facility] Work Phone: [phone] 922-133501-19-2025 History of Present illness Narrative* Bruce Verduzco LPN - 06/10/2024 9:35 AM EST Main historian: Patient Patient presents with Cough Associated symptoms: Patient is here for productive cough and nasal congestion. Was diagnosed with influenza A two weeks ago. Patient is on an immunotherapy for cancer. Has also had some diarrhea. Onset: Two weeks ago Self treatments: none Alleviating factors none Aggravating factors: n/a Exposures: also had flu Last visit: n/a * Madeline Mueller CNP - 06/10/2024 9:35 AM EST HPI Lauri Read female presents to [facility] with Chief Complaint Patient presents with Cough Main historian: Patient Patient presents with Cough Associated symptoms: Patient is here for productive cough and nasal congestion. Was diagnosed with influenza A two weeks ago. Patient is on an immunotherapy for cancer. Has also had some diarrhea. Onset: Two weeks ago Self treatments: none Alleviating factors none Aggravating factors: n/a Exposures: also had flu Last visit: n/a Patient was diagnosed with the flu 2 weeks ago. She was not able to get Tamiflu at that time. She reports she was better for approximately a week or more and then over the last 3 days has started coughing and had nasal congestion again. She has also had some diarrhea. She reports that her sputum has been white. Discussed given symptoms resolved and then restarted over the past 3 days likely not related to the flu and likely has a secondary virus. History All pertinent history was reviewed including: Tobacco Allergies Meds Problems Med Hx SurgHx Fam Hx ROS As documented in HPI. A thorough 12 point review of systems was evaluated including Constitutional and general appearance, Head, Face, Ears, Eyes, Nose, Throat, Cardiovascular, Pulmonary, GI, , Skin, and Psychiatric andwas found to be negative without symptoms or signs consistent with acute pathology with the exception of that specifically documented in the HPI section of this documentation. PHYSICAL EXAM Visit Vitals BP 158/87 (BP Location: Right arm, BP Position: Sitting) Pulse 90 Temp 98.5 F (36.9 C) (Temporal) Resp 18 Ht 1.448 m (4' 9) Wt 65.1 kg (143 lb 9.6 oz) SpO2 94% BMI 31.07 kg/m Physical Exam Vitals and nursing note reviewed. Constitutional: Appearance: Normal appearance. HENT: Head: Normocephalic and atraumatic. Right Ear: Tympanic membrane normal. Left Ear: Tympanic membrane normal. Nose: Nose normal. Mouth/Throat: Mouth: Mucous membranes are moist. Pharynx: Oropharynx is clear. Cardiovascular: Rate and Rhythm: Normal rate and regular rhythm. Heart sounds: No murmur heard. Pulmonary: Effort: Pulmonary effort is normal. Breath sounds: Normal breath sounds. Musculoskeletal: General: Normal range of motion. Cervical back: Normal range of motion and neck supple. Skin: General: Skin is warm and dry. Neurological: Mental Status: She is alert. Psychiatric: Mood and Affect: Mood normal. Behavior: Behavior normal. RESULTS Recent Results (from the past 2 hour(s)) SARS-COV-2 RAPID ANTIGEN (CLINIC ONLY) Collection Time: 06/10/24 10:12 AM Specimen: NARES Result Value Ref Range SARS-COV-2 Rapid Antigen NOT DETECTED NOT DETECTED NARRATIVE -1 This test was performed using lateral flow immunoassay. This test does not differentiate between SARS-CoV and SARS-CoV2. ASSESSMENT/PLAN 1. Sore throat 2. Acute cough Orders Placed This Encounter SARS-COV-2 RAPID ANTIGEN (CLINIC ONLY) XR CHEST PA AND LATERAL 2 VIEWS POCT INFLUENZA, A B POCT RSV QUALITATIVE OR SEMIQUALITATIVE, MULTI STEP yxyprvlqaaxcdgz-enonvuplwhwfznc-mbkbusccbzvuwifj 30-2-10 MG/5ML Syrup Given that patient does not exhibit the signs or symptoms of a cough related to a probable bacterial cause (ie not pneumonia or H. Influenza - no high fever, pertussis - no severe spasmotic cough, and no consolidation heard on physical exam), chest xray negative. I will treat symptomatically with cough medication alone. I discussed with patient that I have diagnosed them with a post infectious cough, which is very common following resolved viral and bacterial infections and that antibiotics will only introduce unnecessary risk and cost. Discussed with patient that if they experience any worsening such as fever, bloody sputum, change in color or thickness of sputum, shortness of breath or chest pain, they should be rechecked in the urgent care or emergency department SARAI. Patient expressed understanding and left clinic in stable condition. If symptoms worsen patient was advised to follow up in our office, primary care provider or the Emergency Dept. Benefits, Risks, Contraindications, and Complications of recommended treatments were explained. The patient understands and agrees to proceed with plan. [facility] Evaluation + Plan note * Assessment & Plan Note - Thelma Frazier DO - 06/06/2024 12:12 PM EST Associated Problem(s): Anxiety -We discussed her symptoms of anxiety and again she has agreed to call if she feels like it continues to be an issue in the next several weeks. She understands that we can try medication [facility] Work Phone: [phone] Miscellaneous Notes* Assessment & Plan Note - Thelma Frazier DO - 06/06/2024 12:12 PM ESTAssociated Problem(s): Anxiety -We discussed her symptoms of anxiety and again she has agreed to call if she feels like it continues to be an issue in the next several weeks. She understands that we can try medication * Assessment & Plan Note - Thelma Frazier DO - 06/06/2024 12:11 PM EST Associated Problem(s): Influenza A -I believe that her symptoms began a week ago Tuesday and her diagnosis was confirmed last through testing -She is slowly improving but because of her coughing jags I am giving her prescription for Tessalon. I also encouraged her to drink plenty of fluids and she will let us know how she is doing * Assessment & Plan Note - Thelma Frazier DO - 06/06/2024 12:03 PM EST Associated Problem(s): Multiple myeloma -Stable and continues to follow closely with oncology -Will continue to monitor [facility] Work Phone: [phone] 151-301501-15-2025 Evaluation + Plan note* Assessment & Plan Note - Thelma Frazier DO - 06/06/2024 12:11 PM ESTAssociated Problem(s): Influenza A -I believe that her symptoms began a week ago Tuesday and her diagnosis was confirmed last through testing -She is slowly improving but because of her coughing jags I am giving her prescription for Tessalon. I also encouraged her to drink plenty of fluids and she will let us know how she is doing [facility] Work Phone: [phone] 638-961401-15-2025 Evaluation + Plan note* Assessment & Plan Note - Thelma Anusha DO Freddie - 06/06/2024 12:03 PM ESTAssociated Problem(s): Multiple myeloma -Stable and continues to follow closely with oncology -Will continue to monitor [facility] Work Phone: [phone] 335-908301-15-2025 History of Present illness Narrative* Thelma Frazier DO - 06/06/2024 12:00 PM EST Subjective Patient ID: Lauri Read is a 74 y.o. female who presents for Follow-up (URGENT CARE FU INFLUENZA A ). HPI She is here today for evaluation of a cough and recent diagnosis of influenza A. A week ago she went to urgent care because of several days of respiratory symptoms. She tested positive for influenza A. She explains that yesterday she had received her steroid therapy and was feeling relatively better so she decided to go to [employer] for a meal. She states she suddenly started coughing and it became very severe. She went to the bathroom and continued to cough forcefully. She states that she got scared because she did not think it was going to stop. It did and she is here today for evaluation. We both agree that she is improving from her bout of influenza and the cough may have beenfrom sensitivity to her trachea. I am going to give her some cough medicine to take for the next 7 to 10 days until she is passed this influenza episode. We also discussed her mood and she states shehas been feeling anxious recently. We talked about perhaps trying medication but she would like to see how the next couple of weeks ago and she has agreed to call if she is not getting better. We also recognize that she is due for screening mammogram which she has done routinely in [place]. We are sending a prescription there and she has agreed to get it done in the next month or so. She is beingtreated for multiple myeloma and follows very closely with her oncology team. Review of Systems Constitutional: Positive for fatigue. Negative for fever. Respiratory: Positive for cough. Negative for shortness of breath and wheezing. Cardiovascular: Negative for chest pain, palpitations and leg swelling. Gastrointestinal: Negative for diarrhea, nausea and vomiting. Musculoskeletal: Negative for [...] Problem List Items Addressed This Visit ICD-10-CM Multiple myeloma C90.00 -Stable and continues to follow closely with oncology -Will continue to monitor Encounter for screening mammogram for malignant neoplasm of breast Z12.31 Relevant Orders BI mammo bilateral screening tomosynthesis Influenza A - Primary J10.1 -I believe that her symptoms began a week ago Tuesday and her diagnosis was confirmed last through testing -She is slowly improving but because of her coughing jags I am giving her prescription for Tessalon. I also encouraged her to drink plenty of fluids and she will let us know how she is doing Acute cough R05.1 Relevant Medications benzonatate (Tessalon) 200 mg capsule Anxiety F41.9 -We discussed her symptoms of anxiety and again she has agreed to call if she feels like it continues to be an issue in the next several weeks. She understands that we can try medication Pt Instructions As we discussed I sent a prescription to your pharmacy for a medication called Tessalon and these are tiny pearls that you swallowed. You will take 1 every 8 hours to help you avoid any more severe coughing jags. I would take this for the next 7 to 10 days and please also be sure to drink plenty ofwater. Please remember that you are due for your screening mammogram and the staff can help you get that scheduled at [facility] for July. If you continue to feel some anxiety please let me know because we could prescribe something that would really help with your symptoms We will see you back as previously planned Thelma Frazier DO documented [facility] Work Phone: [phone] Instructions* Patient Instructions* Thelma Frazier DO - 06/06/2024 12:00 PM EST Pt Instructions As we discussed I sent a prescription to your pharmacy for a medication called Tessalon and these are tiny pearls that you swallowed. You will take 1 every 8 hours to help you avoid any more severe coughing jags. I would take this for the next 7 to 10 days and please also be sure to drink plenty ofwater. Please remember that you are due for your screening mammogram and the staff can help you get that scheduled at [facility] for July. If you continue to feel some anxiety please let me know because we could prescribe something that would really help with your symptoms We will see you back as previously planned [facility] in [facility] Work Phone: [phone] Evaluation note* Diagnosis Onset Date Resolution Status Admit Date Multiple myeloma chronic June 05, 2024 10:06am Shingles resolved June 05, 2024 10:06am Multiple myeloma chronic June 19, 2024 11:11am Shingles resolved June 19, 2024 11:11am Multiple myeloma chronic July 03, 2024 9:52am Multiple myeloma chronic July 17, 2024 9:49am Shingles resolved July 17, 2024 9:49am Encounter for monoclonal antibody treatment for malignancy acute July 31, 2024 9:40am Multiple myeloma chronic July 312024 9:40am Encounter for monoclonal antibody treatment for malignancy acute August 28, 2024 10:11am Multiple myeloma chronic August 10:11am Encounter for monoclonal antibody treatment for malignancy acute September 19, 2024 8:57am Multiple myeloma chronic September 192024 8:57am Multiple myeloma chronic September 25, 2024 10:11am Shingles resolved September 25, 2024 10:11am Multiple myeloma chronic September 7:40am Shingles resolved October 02, 2024 7:40am [facility] Work Phone: [phone] 112-446701-09-2025 Emergency department Note* Krista Miller, ELECTRICAL PROSPECTING ENGINEER-PROGRAM PRODUCTION SPECIALIST - 05/31/2024 4:03 PM EST Chief Complaint Patient presents with Weakness, Gen Patient complains of cough and weakness since Tuesday, her and her went to urgent care priorto arrival and was positive for influenza A Patient History Past Medical History: Diagnosis Date Allergic 1958 Anemia 2021 Arthritis 2012 Asthma 1958 Cancer (Multi) 2014 Cataract 2013 GERD (gastroesophageal reflux disease) 2003 Hypertension 2004 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 Personal history of other medical treatment History of mammography, diagnostic Urinary tract infection 1970 Varicella 1957 Visual impairment 2009 Past Surgical History: Procedure Laterality Date ADENOIDECTOMY 1957 BREAST SURGERY 2014 CHOLECYSTECTOMY 1975 EYE SURGERY 1997 LYMPH NODE BIOPSY 2014 OTHER SURGICAL HISTORY 05/10/2019 Cholecystectomy OTHER SURGICAL HISTORY 05/10/2019 Breast biopsy OTHER SURGICAL HISTORY 05/10/2019 Tubal ligation OTHER SURGICAL HISTORY 05/21/2021 Dilation and curettage TONSILLECTOMY 1957 TUBAL LIGATION 1989 WISDOM TOOTH EXTRACTION 1979 Family History Problem Relation Name Age of Onset Hyperlipidemia Mother Lavinia Lowe Miscarriages / Stillbirths Mother Lavinia Lowe Lung cancer Father Danny Mynor Cancer Father Danny Lowe Thyroid disease Sister Asthma Paternal Grandmother Stefanie Lowe Social History Social History Narrative Not on file No Known Allergies PMH: Reviewed PSH: Reviewed Social History: Reviewed. Allergies reviewed. HPI: Lauri Read is a 74 y.o. female who presents to the ED today accompanied by her withcomplaints of cough, congestion, weakness. Symptoms started 4 days ago. Has been sick since yesterday. Went to urgent care today and her was diagnosed with influenza A, but the machine was not functioning properly for them to test her. They advised her to come to the ED for evaluation. No fevers. No vomiting. PHYSICAL EXAM: GENERAL: Vitals noted, no distress. Alert and oriented x 3. Non-toxic. HEAD: Normocephalic, atraumatic. Pupils equally round and reactive to light. EOMI. NECK: Supple. No midline or paraspinal tenderness through full range of motion. CARDIAC: Regular rate, rhythm. No murmurs or rubs. RESPIRATORY: Lungs clear and equal bilaterally. No respiratory distress. +cough. MUSCULOSKELETAL & SKIN: Warm, dry, and intact. No rash/lesions. No peripheral edema. NEURO: No focal neurologic deficits, acting appropriately. Labs Reviewed INFLUENZA A AND B PCR - Abnormal Result Value Flu A Result Detected (*) Flu B Result Not Detected Narrative: This assay is an in vitro diagnostic multiplex nucleic acid amplification test for the detection and discrimination of Influenza A & B from nasopharyngeal specimens, and has been validated for use at [facility]. Negative results do not preclude Influenza A/B infections, and should not be used as the sole basis for diagnosis, treatment, or other management decisions. IfInfluenza A/B and RSV PCR results are negative, testing for Parainfluenza virus, Adenovirus and Metapneumovirus is routinely performed for [facility] pediatric oncology and intensive care inpatients, and isavailable on other patients by placing an add-on request. SARS-COV-2 PCR - Normal Coronavirus 2018, PCR Not Detected Narrative: This assay has received FDA Emergency Use Authorization (EUA) and is only authorized for the duration of time that circumstances exist to justify the authorization of the emergency use of in vitro diagnostic tests for the detection of SARS-CoV-2 virus and/or diagnosis of COVID-19 infection under sec tion 564(b)(1) of the Act, 21 U.S.C. 360bbb-3(b)(1). This assay is an in vitro diagnostic nucleic acid amplification test for the qualitative detection of SARS-CoV-2 from nasopharyngeal specimens andhas been validated for use at [facility]. Negative results do not preclude COVID-19 infections and should not be used as the sole basis for diagnosis, treatment, or other management decisions. XR chest 2 views Final Result No evidence of acute intrathoracic abnormality. Signed by: David Garcia 05/31/2024 5:10 PM Dictation workstation: [id number] Medical Decision Making Amount and/or Complexity of Data Reviewed Labs: ordered. Radiology: ordered. ECG/medicine tests: ordered. EKG interpreted by myself shows SR with rate of 86. Left axis. OK interval 166. QRS interval 74. QTinterval 364. QTc interval 435. Non-specific ST-T wave changes. No acute ischemia or injury pattern. ED COURSE: This patient was seen and examined by myself independently. Patient is influenza A is positive, influenza B is negative, COVID is negative. Chest x- ray is negative. She is outside of the window for Tamiflu. She has an inhaler at home for the cough. Offered Hycodan for nighttime use. She verbalized understanding. Recommended PCP follow-up care in a week. Return to ED for any new or worsening symptoms. Patient is discharged home in a stable condition with computer instructions given. DIAGNOSTIC IMPRESSION: #1 influenza A SEUN Mariano 05/31/24 1726 SEUN Mariano 05/31/24 1729 documented in this [facility] Work Phone: [phone]) 974-641501-09-2025 Physician Emergency department Note* SEUN Mariano - 05/31/2024 4:03 PM EST Chief Complaint Patient presents with Weakness, Gen Patient complains of cough and weakness since Tuesday, her and her went to urgent care priorto arrival and was positive for influenza A Patient History Past Medical History: Diagnosis Date Allergic 1958 Anemia 2021 Arthritis 2012 Asthma 1958 Cancer (Multi) 2015 Cataract 2014 GERD (gastroesophageal reflux disease) 2004 Hypertension 2005 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 Personal history of other medical treatment History of mammography, diagnostic Urinary tract infection 1970 Varicella 1957 Visual impairment 2009 Past Surgical History: Procedure Laterality Date ADENOIDECTOMY 1957 BREAST SURGERY 2014 CHOLECYSTECTOMY 1976 EYE SURGERY 1998 LYMPH NODE BIOPSY 2014 OTHER SURGICAL HISTORY 05/10/2019 Cholecystectomy OTHER SURGICAL HISTORY 05/10/2019 Breast biopsy OTHER SURGICAL HISTORY 05/10/2019 Tubal ligation OTHER SURGICAL HISTORY 05/21/2021 Dilation and curettage TONSILLECTOMY 1957 TUBAL LIGATION 1989 WISDOM TOOTH EXTRACTION 1979 Family History Problem Relation Name Age of Onset Hyperlipidemia Mother Lavinia Lowe Miscarriages / Stillbirths Mother Lavinia Lowe Lung cancer Father Danny Lowe Cancer Father Danny Lowe Thyroid disease Sister Asthma Paternal Grandmother Stefanie Lowe Social History Social History Narrative Not on file No Known Allergies PMH: Reviewed PSH: Reviewed Social History: Reviewed. Allergies reviewed. HPI: Lauri Read is a 74 y.o. female who presents to the ED today accompanied by her withcomplaints of cough, congestion, weakness. Symptoms started 4 days ago. Has been sick since yesterday. Went to urgent care today and her was diagnosed with influenza A, but the machine was not functioning properly for them to test her. They advised her to come to the ED for evaluation. No fevers. No vomiting. PHYSICAL EXAM: GENERAL: Vitals noted, no distress. Alert and oriented x 3. Non-toxic. HEAD: Normocephalic, atraumatic. Pupils equally round and reactive to light. EOMI. NECK: Supple. No midline or paraspinal tenderness through full range of motion. CARDIAC: Regular rate, rhythm. No murmurs or rubs. RESPIRATORY: Lungs clear and equal bilaterally. No respiratory distress. +cough. MUSCULOSKELETAL & SKIN: Warm, dry, and intact. No rash/lesions. No peripheral edema. NEURO: No focal neurologic deficits, acting appropriately. Labs Reviewed INFLUENZA A AND B PCR - Abnormal Result Value Flu A Result Detected (*) Flu B Result Not Detected Narrative: This assay is an in vitro diagnostic multiplex nucleic acid amplification test for the detection and discrimination of Influenza A & B from nasopharyngeal specimens, and has been validated for use at [facility]. Negative results do not preclude Influenza A/B infections, and should not be used as the sole basis for diagnosis, treatment, or other management decisions. IfInfluenza A/B and RSV PCR results are negative, testing for Parainfluenza virus, Adenovirus and Metapneumovirus is routinely performed for [facility] pediatric oncology and intensive care inpatients, and isavailable on other patients by placing an add-on request. SARS-COV-2 PCR - Normal Coronavirus 2018, PCR Not Detected Narrative: This assay has received FDA Emergency Use Authorization (EUA) and is only authorized for the duration of time that circumstances exist to justify the authorization of the emergency use of in vitro diagnostic tests for the detection of SARS-CoV-2 virus and/or diagnosis of COVID-19 infection under sec tion 564(b)(1) of the Act, 21 U.S.C. 360bbb-3(b)(1). This assay is an in vitro diagnostic nucleic acid amplification test for the qualitative detection of SARS-CoV-2 from nasopharyngeal specimens andhas been validated for use at [facility]. Negative results do not preclude COVID-19 infections and should not be used as the sole basis for diagnosis, treatment, or other management decisions. XR chest 2 views Final Result No evidence of acute intrathoracic abnormality. Signed by: David Garcia 05/31/2024 5:10 PM Dictation workstation: [id number] Medical Decision Making Amount and/or Complexity of Data Reviewed Labs: ordered. Radiology: ordered. ECG/medicine tests: ordered. EKG interpreted by myself shows SR with rate of 86. Left axis. OK interval 166. QRS interval 74. QTinterval 364. QTc interval 435. Non-specific ST-T wave changes. No acute ischemia or injury pattern. ED COURSE: This patient was seen and examined by myself independently. Patient is influenza A is positive, influenza B is negative, COVID is negative. Chest x- ray is negative. She is outside of the window for Tamiflu. She has an inhaler at home for the cough. Offered Hycodan for nighttime use. She verbalized understanding. Recommended PCP follow-up care in a week. Return to ED for any new or worsening symptoms. Patient is discharged home in a stable condition with computer instructions given. DIAGNOSTIC IMPRESSION: #1 influenza A SEUN Mariano 05/31/24 1726 SEUN Mariano 05/31/[address] [facility] Work Phone: 1(105) 947-179111-27-2024 History of Present illness Narrative* Pawan Velazquez PA-C - 04/18/2024 9:20 AM EST Subjective Patient ID: Lauri Read is a 74 y.o. female who presents for URI (SINUS CONGESTION, COUGH , MOUTHIRRITATION, LYMPH NODE TENDERNESS x 6 DAYS ). HPI Presents for evaluation of URI. Symptoms including cough, congestion, body aches, malaise, and headache have been present for several days and refractory to OTC meds. No fever, chills, nausea, vomiting, abdominal pain, CP, or SOB. No exacerbating factors Review of Systems Constitutional: See HPI ENT: See HPI Respiratory: See HPI Neurologic: Alert and oriented X4, No numbness, No tingling. All other systems are negative Objective BP 129/80 Pulse 87 Temp 36.7 C (98.1 F) Resp 18 Ht 1.448 m (4' 9) Wt 67.1 kg (148 lb) SpO2 96% BMI 32.03 kg/m Physical Exam General: Alert and oriented, No acute distress. Eye: Pupils are equal, round and reactive to light, Normal conjunctiva. HENT: Normocephalic, left tympanic membrane is injected; right tympanic membrane and canal are unremarkable; unremarkable oropharynx; nasal congestion noted; cervical lymph node tenderness without enlargement Neck: Supple Respiratory: Respirations are non-labored; LCTA bilaterally Musculoskeletal: Normal ROM and strength Integumentary: Warm, Dry, Intact, No pallor, No rash. Neurologic: Alert, Oriented, Normal sensory, Cranial Nerves II-XII are grossly intact Psychiatric: Cooperative, Appropriate mood & affect. Assessment/Plan Exam is consistent with an upper respiratory infection and left otitis media. Prescriptions for Amoxil, low-dose prednisone, and Bromfed. Patient's clinical presentation is otherwise unremarkable at this time. Patient is discharged with instructions to follow-up with primary care or seek emergency medical attention for worsening symptoms or any new concerns. Problem List Items Addressed This Visit None Visit Diagnoses Left otitis media, unspecified otitis media type - Primary Relevant Medications amoxicillin (Amoxil) 875 mg tablet nklwankdnxxdrpt-lwqsjpqrl-SX (Bromfed DM) 2-30-10 mg/5 mL syrup predniSONE (Deltasone) 10 mg tablet Upper respiratory tract infection, unspecified type Relevant Medications amoxicillin (Amoxil) 875 mg tablet dfzuhqomcxyarsf-hncdfizcu-SD (Bromfed DM) 2-30-10 mg/5 mL syrup predniSONE (Deltasone) 10 mg tablet Final diagnoses: [H66.92] Left otitis media, unspecified otitis media type [J06.9] Upper respiratory tract infection, unspecified type [facility] Work Phone: 1(373) 571-499411-21-2024 Evaluation + Plan note* Assessment & Plan Note - Thelma Frazier DO - 04/12/2024 8:55 AM ESTAssociated Problem(s): GERD (gastroesophageal reflux disease) -She will continue taking famotidine twice daily and call with any problems [facility] Work Phone: 1([phone]) 225-213011-21-2024 Evaluation + Plan note* Assessment & Plan Note - Thelma Frazier DO - 04/12/2024 8:55 AM ESTAssociated Problem(s): Prediabetes -Her sugars are up somewhat as evidenced by hemoglobin A1c of 6.2 -We discussed exercise and diet [facility] Work Phone: 1(843) 604-530211-21-2024 Evaluation + Plan note* Assessment & Plan Note - Thelma Frazier DO - 04/12/2024 8:55 AM ESTAssociated Problem(s): HTN (hypertension), benign -Her blood pressure remains under very good control and we will continue with her current antihypertensive regimen -She was seeing Dr. Garcia for uncontrolled hypertension and she will discuss discontinuation of follow-ups with him at her next appointment [facility] Work Phone: 1(196) 311-867411-21-2024 Evaluation + Plan note* Assessment & Plan Note - Thelma Frazier DO - 04/12/2024 8:55 AM ESTAssociated Problem(s): Hypertriglyceridemia -She will continue with her cholesterol medication and we are checking a lipid profile just prior to her next follow-up visit [facility] Work Phone: 1(442) 622-540411-21-2024 Miscellaneous Notes* Assessment & Plan Note - Thelma Frazier DO - 04/12/2024 8:55 AM ESTAssociated Problem(s): GERD (gastroesophageal reflux disease) -She will continue taking famotidine twice daily and call with any problems * Assessment & Plan Note - Thelma Frazier DO - 04/12/2024 8:55 AM EST Associated Problem(s): Prediabetes -Her sugars are up somewhat as evidenced by hemoglobin A1c of 6.2 -We discussed exercise and diet * Assessment & Plan Note - Thelma Frazier DO - 04/12/2024 8:55 AM EST Associated Problem(s): HTN (hypertension), benign -Her blood pressure remains under very good control and we will continue with her current antihypertensive regimen -She was seeing Dr. Garcia for uncontrolled hypertension and she will discuss discontinuation of follow-ups with him at her next appointment * Assessment & Plan Note - Thelma Frazier DO - 04/12/2024 8:55 AM EST Associated Problem(s): Hypertriglyceridemia -She will continue with her cholesterol medication and we are checking a lipid profile just prior to her next follow-up visit documented [facility] Phone: 1(646) 394-894911-21-2024 History of Present illness Narrative* Thelma Frazier, DO - 04/12/2024 8:40 AM EST Subjective Patient ID: Lauri Read is a 74 y.o. female who presents for Follow-up. HPI She is here today for her routine 6-month checkup. She is looking well. She still suffers from fatigue which is understandable given all of her health issues. We did conduct a review of systems and we also went over the results of recent lab work. Her hemoglobin A1c went up somewhat at 6.2. Understandably her sugars will be elevated by her steroid treatment. We discussed the importance of watching the diet and also maintaining an active lifestyle. We talked about doing chair exercises and the goal of trying to get 30 minutes of aerobic activity 5 days a week or averaging 150 minutes/week. We will continue to monitor blood glucose levels. We also are providing refills on her antihypertensivemedications as well as her cholesterol medicine. We talked about her acid reflux and she states occasionally she gets reflux which causes a sore throat. She will continue taking her famotidine twice daily. She will call if her condition worsens. Also I briefly mentioned the importance of getting the pneumonia vaccine but she politely declines. She has been seeing cardiology and nephrology and sheis wondering if she needs to continue. I have recommended she keep her next upcoming appointment and simply ask them if it is okay did not come back unless she needs them. Otherwise we will see her back in approximately 6 months and she will get fasting lab work done prior to that visit. Review of Systems Constitutional: Positive for fatigue. Negative for unexpected weight change. Respiratory: Negative for cough, chest tightness, shortness of breath and wheezing. Cardiovascular: Negative for chest pain, palpitations and leg swelling. Gastrointestinal: Negative for abdominal pain, blood in stool, diarrhea, nausea and vomiting. Occ GERD Musculoskeletal: Negative for arthralgias and back pain. [...] Visit ICD-10-CM GERD (gastroesophageal reflux disease) K21.9 -She will continue taking famotidine twice daily and call with any problems Relevant Medications famotidine (Pepcid) 20 mg tablet HTN (hypertension), benign I10 -Her blood pressure remains under very good control and we will continue with her current antihypertensive regimen -She was seeing Dr. Garcia for uncontrolled hypertension and she will discuss discontinuation of follow-ups with him at her next appointment Relevant Medications NIFEdipine ER (Adalat CC) 60 mg 24 hr tablet valsartan (Diovan) 40 mg tablet Hypertriglyceridemia E78.1 -She will continue with her cholesterol medication and we are checking a lipid profile just prior to her next follow-up visit Relevant Orders Lipid Panel Prediabetes - Primary R73.03 -Her sugars are up somewhat as evidenced by hemoglobin A1c of 6.2 -We discussed exercise and diet Relevant Orders Hemoglobin A1C Patient instructions As we discussed I am pleased with your checkup today Please try to incorporate daily exercises in your routine. I do believe that chair exercises can bequite beneficial and usually they are doable without injury or excessive work. The exercise prescription is to try to get a total of 30 minutes of aerobic activity 5 days a week or 150 minutes for the entire week. Studies show that if people exercise regularly They do significantly reduce the risk of diabetes We sent refills on medications. Please remember to talk to your specialist about the need for follow-up versus going back on an as-needed basis If everything goes according to plan we will see you back in 6 months for follow-up and please remember to get fasting lab work done prior to that visit Thelma Frazier DO documented in this [facility] Work Phone: [phone]) 823-928911-21-2024 Instructions* Patient Instructions* Thelma Frazier DO - 04/12/2024 8:40 AM EST As we discussed I am pleased with your checkup today Please try to incorporate daily exercises in your routine. I do believe that chair exercises can bequite beneficial and usually they are doable without injury or excessive work. The exercise prescription is to try to get a total of 30 minutes of aerobic activity 5 days a week or 150 minutes for the entire week. Studies show that if people exercise regularly They do significantly reduce the risk of diabetes We sent refills on medications. Please remember to talk to your specialist about the need for follow-up versus going back on an as-needed basis If everything goes according to plan we will see you back in 6 months for follow-up and please remember to get fasting lab work done prior to that visit documented [facility] Work Phone: 1([phone]) 293-364911-19-2024 Evaluation note* Diagnosis Onset Date Resolution Status Admit Date Multiple myeloma chronic April 10, 2024 12:34pm Multiple myeloma chronic May 08, 2024 9:58am Shingles resolved May 08, 2024 9:58am Multiple myeloma chronic June 05, 2024 10:06am Shingles resolved June 05, 2024 10:06am Multiple myeloma chronic June 19, 2024 11:11am Shingles resolved June 19, 2024 11:11am Multiple myeloma chronic July 03, 2024 9:52am Multiple myeloma chronic July 17, 2024 9:49am Shingles resolved July 17, 2024 9:49am Encounter for monoclonal antibody treatment for malignancy acute July 31, 2024 9:40am Multiple myeloma chronic July 312024 9:40am [facility] Work Phone: [phone]) 491-573109-09-2024 History of Present illness Narrative* Paulo Barakat Jr., MD, PhD - 01/30/2024 10:40 AM EDT Images from the original note were not included. Care team: Jeet Garcia, Thelma Frazier, Niels Grimes, Bill SandraYusuf lemus CC: Myeloma HPI Ms. Read is a very pleasant 73 y.o. woman diagnosed with myeloma. She has been under the excellent care of Dr Leyva in [place]. We have taken the last few months off of treatment due to toxicity(diarrhea, fatigue, neuropathy, weight gain) She had a good summer, her great grandchild came to visit from [place]. She denies CRAB. Her disease is progressing now and she is planning on starting Darzalex locally soon. ROS A complete ROS was obtained, no fever, no vomiting and is negative otherwise. PMH 1. Myeloma 2. HTN 3. Granuloma annulare 4. Obesity 5. GERD 6. Carpel tunnel 7. Hyperglycemia 8. Carotid stenosis 9. Hyperuricemia 10. Breast cancer (2014, lumpectomy/radiation) 11. COVID19 infection (April 2021) SH No tobacco, no alcohol use, 1 son (works at [employer]), 1 daughter, 1 great grand child now in [place], , her used to work for the [employer] [facility] FH Father with lung cancer Multiple myeloma Date of dx: 30-APR-2021 CRAB [...] uCR Rx best response: uCR Stop reason: Rx2:Daratumumab Start date: PEND Stop date: Line of therapy: 2 Line Best response: Stop Reason: Comments: Current Outpatient Medications Medication Sig acyclovir 400mg 400 MG tablet Take 400 mg by mouth daily. allopurinol 100 MG tablet Take 100 mg by mouth daily. Alpha-Lipoic Acid 200 MG capsule Take 200 mg by mouth 2 times daily. aspirin 81 MG Chew Tab chewable tablet Chew 81 mg daily. famotidine (Pepcid) 40 MG tablet Take 40 mg by mouth See admin instructions. Take weekly for 2 weeks and off 1 week furOSEmide 40 MG tablet Take 40 mg by mouth daily. HERBAL PRODUCT Pectasol C Multiple Vitamins-Minerals (OSTEOPRIME ULTRA PO) Take by mouth. NIFEdipine 60 MG Tab SR 24 HR tablet Take 1 tablet by mouth daily. Vitamin D-Vitamin K (D3 + K2 DOTS PO) Take 1 tablet by mouth daily. BP 140/69 (BP Position: Sitting) Pulse 77 Temp 97.4 F (36.3 C) (Infrared) Resp 16 Ht 1.448 m (4' 9) Wt 69.8 kg (153 lb 12.8 oz) SpO2 96% BMI 33.28 kg/m Smoking Status Never NAD PER Neck supple OP clear MMM Normal rate No wheezing NABS DUNN no c/c/ trace LE edema Non focal 2-12 intact Karnofsky scale 70 (ECOG grade 1) Cares for self, unable to perform normal activity or active work. Labs I have reviewed all the laboratory [...] protein 06/02/21 - 4.3, 06/30/21 - 2.5! April 2022 M protein 0.1 06/08/22: TP 6.4, alb 3.7, IgG 629, IgA 100, IgM 20, M spike 0.1 IgG kappa, counts okay 12/07/22: IgG 982, IgA 103, IgM 29, M spike 0.4 now (continues to rise from 0.1 in May) 5.7 / 12.8 / 263 Creatinine and calcium normal 10/17/23: 6.4 / 11.5 / 271 M protein 0.4 glucose 209, creatinine 0.99, calcium 9.7 11/22/23: 4.5/ 11.9/ 275 M protein 0.4, glucose 99, creat 0.86, Ca 9.5 Radiology 04/30/21: PET/CT: - Focal lesion 3.1x2.4cm in cecum with SUV 10.1 - 3.7x2.4cm lesion in posterior L4 vertebral body SUV 2.8 - diffuse activity through remaining osseous structures and marrow 05/27/21: Colonoscopy: - diverticulosis, no masses and no lesions, no polyps 12/14/22: L HIP XR: Soft Tissue: There is no obvious soft tissue swelling. Bone: No acute osseous abnormality or radiographically evident lesion at the left hip. Enthesopathyat the femoral greater trochanter. Hip: The hip joint is anatomically aligned. Degenerative changes including acetabular rim and femoral head marginal osteophytes. IMPRESSION: 1. No radiographically evident acute osseous abnormality or discrete lesion at the left hip. 2. Left hip osteoarthritic changes. 3. Femoral greater trochanter enthesopathy at the gluteal cuff insertion. 12/14/22: XR L FEMUR: Soft Tissue: There is no obvious soft tissue swelling. Bone: No acute osseous abnormality. No radiographically evident lucent marrow replacing lesion. Enthesopathy at the femoral greater trochanter. Joint: The hip joint is grossly intact with degenerative changes of the acetabular rim marginal osteophytes. IMPRESSION: No radiographically evident acute osseous abnormality or lesion at the left femur. Path 04/30/21: Marrow: 40-50% cellular with 60-70% kappa plasma cells, suggestive of associated fibrosis, flow: KLC, CD56,dim CD20, 46 XX Assessment and plan Ms. Read is a very pleasant 73 y.o. woman with a diagnosis of myeloma. - agree with plan to start Darzalex given PD. Reviewed r/b/a. Questions answered. See note to care team for all details and additional information from today's visit. We talked about how we do not typically give the day 2 dex here in our practice * Jamila Donaldson RN - 01/30/2024 10:40 AM EDT Reviewed After Visit Summary with patient and family. Discussed any medication changes and recommendations from physician. All questions answered. Patient and family encouraged to call with any additional questions. [facility] Instructions* Patient Instructions* Paulo Barakat Jr., MD, PhD - 01/30/2024 10:40 AM EDT Patient education Your condition myeloma From today's visit - agree with starting Darzalex, I'll send your local doctor a note about how we administer this here documented in this encounter[facility] Evaluation + Plan note* Assessment & Plan Note - Thelma Frazier DO - 12/06/2023 5:02 PM EDTAssociated Problem(s): Bilateral hip pain -She presents today with bilateral hip pain with left greater than right -We are ordering x-rays and have agreed to contact her with results -I am giving her a short stent of Naprosyn 500 mg twice daily with food for the next 10 days -We will contact her with the x-rays and she will let us know how the medication did for her symptoms -I did tell her ahead of time we might be looking at physical therapy versus referral [facility] [facility] Work Phone: 1([phone]) 980-520107-16-2024 Miscellaneous Notes* Assessment & Plan Note - Thelma Frazier DO - 12/06/2023 5:02 PM EDTAssociated Problem(s): Bilateral hip pain -She presents today with bilateral hip pain with left greater than right -We are ordering x-rays and have agreed to contact her with results -I am giving her a short stent of Naprosyn 500 mg twice daily with food for the next 10 days -We will contact her with the x-rays and she will let us know how the medication did for her symptoms -I did tell her ahead of time we might be looking at physical therapy versus referral to orthopedics documented in this [facility] Work Phone: [phone] 415-370207-16-2024 History of Present illness Narrative* Thelma Frazier DO - 12/06/2023 4:40 PM EDT Subjective Patient ID: Lauri Read is a 73 y.o. female who presents for Hip Pain (Xrays from a year ago-affecting walking). She is here today for evaluation of bilateral hip pain. She describes her left side feeling much more intense than the right side and she is pointing to the the location of the hip joint. She broughtin copies of x-rays performed 1 year ago on history of myeloma hips which showed evidence of osteoarthritis. Because of her history of myeloma I told her it is important that we get x-rays for her evaluation. I am not strongly suspecting myeloma involvement but she fully understands that myeloma attacks the bone and we need to do due diligence and make sure that this is not what is going on in her hip. We talked about various ways to treat her condition and I will start a short stent of Naprosyn to be taken twice daily for the next 10 days. Once her x-ray results are known I will contact her and told her we might opt to do physical therapy versus seeing orthopedics. Objective Physical Exam Vitals and nursing note [...] Problem List Items Addressed This Visit ICD-10-CM Bilateral hip pain - Primary M25.551, M25.552 -She presents today with bilateral hip pain with left greater than right -We are ordering x-rays and have agreed to contact her with results -I am giving her a short stent of Naprosyn 500 mg twice daily with food for the next 10 days -We will contact her with the x-rays and she will let us know how the medication did for her symptoms -I did tell her ahead of time we might be looking at physical therapy versus referral to orthopedics Relevant Medications naproxen (Naprosyn) 500 mg tablet Other Relevant Orders XR hips bilateral 2 VW w pelvis when performed Thelma Frazier DO documented [facility] Work Phone: 1([phone]) 333-469307-16-2024 Instructions* Patient Instructions* Thelma Frazier DO - 12/06/2023 4:40 PM EDT As we discussed I feel it is important that you have x-rays of both of your hips and the orders arein the computer. You could go directly from here to the hospital to get your x-rays or you could come back tomorrow to the hospital or any facility that offers x-ray. We do not offer x-ray in this building Once results are known I will contact you. I also sent a prescription to your pharmacy for Naprosyn to be taken twice a day with food and makesure you do take it with food I will let you know the x-rays and you will let me know how you are doing on the medication documented in this [facility] Work Phone: 1([phone]) 505-178806-03-2024 History of Present illness Narrative* Paulo Barakat MD, PhD - 10/24/2023 8:40 AM EDT Care team: Jete Garcia, Thelma Frazier, Niels Grimes, Salvador Flores, Yusuf Leyva CC: Myeloma HPI Ms. Read is a very pleasant 73 y.o. woman diagnosed with myeloma. She has been under the excellent care of Dr Leyva in [place]. She reports severe diarrhea for the last month or so. She's taking immodium but this doesn't seem to be helping as much as before. She has abdominal pains after Velcade shots. She has numbness tingling in her extremities and around her mouth from time to time. She has fatigue. Overall, she is just not feeling very well. She suddenly lost hearing unilaterally. She saw an ENT and was on prednisone for a while for this without much improvement. Her is here with her. ROS A complete ROS was obtained, no fever, no rash and is negative otherwise. PMH 1. Myeloma 2. HTN 3. Granuloma annulare 4. Obesity 5. GERD 6. Carpel tunnel 7. Hyperglycemia 8. Carotid stenosis 9. Hyperuricemia 10. Breast cancer (2014, lumpectomy/radiation) 11. COVID19 infection (April 2021) SH No tobacco, no alcohol use, 1 son (works at [employer]), 1 daughter, 1 great grand child now in [place], , her used to work for the [employer] FH Father with lung cancer Multiple myeloma Date of dx: 30-APR-2021 CRAB [...] tablet Chew 81 mg daily. Bioflavonoid Products (VANNESSA C PO) take 4,000 mg by mouth [...] PRODUCT congaplex HERBAL PRODUCT emzymacore HERBAL PRODUCT [place] 3 HERBAL PRODUCT frisian black radish HERBAL PRODUCT Kidney Well HERBAL PRODUCT Joint Ease HERBAL PRODUCT Pectasol C lenalidomide (Revlimid) 15 MG capsule Take 15 mg by mouth daily. Patient taking Days 1-14 of 21 daycycle. losartan-hydrochlorothiazide 100-25 MG Tab tablet Take 1 [...] tablet Take 1,000 Units by mouth daily. BP 143/67 (BP Position: Sitting) Pulse 80 Temp 98.1 F (36.7 C) (Oral) Resp 17 Ht 1.448 m (4' 9) Wt 78 kg (172 lb) SpO2 95% BMI 37.22 kg/m Smoking Status Never NAD PER Neck supple OP clear MMM Normal rate No wheezing NABS DUNN no c/c/ trace LE edema Non focal 2-12 intact Karnofsky scale 70 (ECOG grade 1) Cares for self, unable to perform normal activity or active work. Labs I have reviewed all the laboratory [...] protein 06/02/21 - 4.3, 06/30/21 - 2.5! April 2022 M protein 0.1 06/08/22: TP 6.4, alb 3.7, IgG 629, IgA 100, IgM 20, M spike 0.1 IgG kappa, counts okay 12/07/22: IgG 982, IgA 103, IgM 29, M spike 0.4 now (continues to rise from 0.1 in May) 5.7 / 12.8 / 263 Creatinine and calcium normal 10/17/23: 6.4 / 11.5 / 271 M protein 0.4 glucose 209, creatinine 0.99, calcium 9.7 Radiology 04/30/21: PET/CT: - Focal lesion 3.1x2.4cm in cecum with SUV 10.1 - 3.7x2.4cm lesion in posterior L4 vertebral body SUV 2.8 - diffuse activity through remaining osseous structures and marrow 05/27/21: Colonoscopy: - diverticulosis, no masses and no lesions, no polyps 12/14/22: L HIP XR: Soft Tissue: There is no obvious soft tissue swelling. Bone: No acute osseous abnormality or radiographically evident lesion at the left hip. Enthesopathyat the femoral greater trochanter. Hip: The hip joint is anatomically aligned. Degenerative changes including acetabular rim and femoral head marginal osteophytes. IMPRESSION: 1. No radiographically evident acute osseous abnormality or discrete lesion at the left hip. 2. Left hip osteoarthritic changes. 3. Femoral greater trochanter enthesopathy at the gluteal cuff insertion. 12/14/22: XR L FEMUR: Soft Tissue: There is no obvious soft tissue swelling. Bone: No acute osseous abnormality. No radiographically evident lucent marrow replacing lesion. Enthesopathy at the femoral greater trochanter. Joint: The hip joint is grossly intact with degenerative changes of the acetabular rim marginal osteophytes. IMPRESSION: No radiographically evident acute osseous abnormality or lesion at the left femur. Path 04/30/21: Marrow: 40-50% cellular with 60-70% kappa plasma cells, suggestive of associated fibrosis, flow: KLC, CD56,dim CD20, 46 XX Assessment and plan Ms. Read is a very pleasant 73 y.o. woman with a diagnosis of myeloma. Her most recent restaging studies seem to show a plateau in response. We had a long talk today about her condition. At this point, it seems to me most all of her complaints could well be side effectsfrom her treatment (e.g., her diarrhea as she describes it to me sounds suspicious of being Revlimid related, her numbness and tingling sound like Velcade side effects to me). I've proposed she take a month off treatment given her symptoms. I've sent in a prescription for colestipol to try for her diarrhea. Plan to check restaging locally tomorrow and again in 28 days locally. If stable, would recommend holding treatment. If the restaging in one month shows a significantrise in the M protein in serum (e.g., up to 0.7 or so), I'd recommend Darzalex in the next line. See note to care team for all details and additional information from today's visit. * Jamila Donaldson RN - 10/24/2023 8:40 AM EDT Reviewed After Visit Summary with patient and family. Discussed any medication changes and recommendations from physician. All questions answered. Patient and family encouraged to call with any additional questions. [facility] Instructions* Patient Instructions* Paulo Baarkat MD, PhD - 10/24/2023 8:40 AM EDT Patient education Your condition myeloma From today's visit - recommend to STOP all treatment (Revlimid, Velcade, dexamethasone) - prescription for colestipol sent to pharmacy - will follow up on restaging blood tests from tomorrow and again in ~ 4 weeks and schedule video for us when next set of labs are back. If M protein is stable, would continue surveillance month to month off treatment. If M protein is rising, would plan to do Darzalex treatments next here documented in this [facility]05-23-2024 Evaluation + Plan note* Assessment & Plan Note - SEUN Lundy DNP - 10/13/2023 11:11 AM EDTAssociated Problem(s): Bilateral leg edema Does occasionally have some increase in her lower extremity edema, I we will give her some extra Lasix that she can use as needed for lower extremity edema, I did ask her if she has to take this for several days in a row to please notify us as we would need to check her labs and check potassium levels, at this time her edema is well-controlled [facility] Work Phone: [phone] 944-654905-23-2024 Miscellaneous Notes* Assessment & Plan Note - SEUN Lundy DNP - 10/13/2023 11:11 AM EDTAssociated Problem(s): Bilateral leg edema Does occasionally have some increase in her lower extremity edema, I we will give her some extra Lasix that she can use as needed for lower extremity edema, I did ask her if she has to take this for several days in a row to please notify us as we would need to check her labs and check potassium levels, at this time her edema is well-controlled * Assessment & Plan Note - SEUN Lundy DNP - 10/13/2023 11:10 AM EDT Associated Problem(s): Hyperuricemia Uric acid was not checked at this time however we will check the next time, will refill allopurinol * Assessment & Plan Note - SEUN Lundy DNP - 10/13/2023 11:10 AM EDT Associated Problem(s): HTN (hypertension), benign Blood pressure is currently well-controlled on valsartan 40 mg and nifedipine 60 mg, will continue with current medications documented in this [facility] Phone: 1([phone]) 343-231705-23-2024 Evaluation + Plan note* Assessment & Plan Note - SEUN Lundy DNP - 10/13/2023 11:10 AM EDTAssociated Problem(s): Hyperuricemia Uric acid was not checked at this time however we will check the next time, will refill allopurinol [facility] Work Phone: 1([phone]) 988-238905-23-2024 Evaluation + Plan note* Assessment & Plan Note - SEUN Lundy DNP - 10/13/2023 11:10 AM EDTAssociated Problem(s): HTN (hypertension), benign Blood pressure is currently well-controlled on valsartan 40 mg and nifedipine 60 mg, will continue with current medications [facility] Work Phone: 1([phone]) 748-242305-23-2024 History of Present illness Narrative* SEUN Lundy DNP - 10/13/2023 10:30 AM EDT Subjective Patient ID: Lauri Read is a 73 y.o. female who presents for No chief complaint on file.. Being seen in follow-up for hypertension and peripheral edema Labs reviewed Glucose 209 Renal functions BUN of 19 and creatinine of 1.99, GFR is 59 Sodium 139, potassium 4.0, chloride 104, bicarb 24 LFTs within normal limits Hemoglobin A1c 5.9 H&H 10.6 and 33.8 She is doing well She did have a visit to the emergency room in June secondary to increase in lower extremity edema At that time she had follow-up with cardiology and no further changes were made Her edema at this time is well-controlled Blood pressure is well-controlled It had been high and she was restarted on her valsartan by her family care physician Review of Systems Constitutional: Negative. Respiratory: Negative. Cardiovascular: Positive for leg swelling. Gastrointestinal: Negative. Endocrine: Negative. Genitourinary: Negative. Musculoskeletal: Negative. Skin: Negative. Neurological: Negative. Psychiatric/Behavioral: Negative. Objective Physical Exam Vitals reviewed. Constitutional: Appearance: Normal appearance. HENT: Head: Normocephalic. Cardiovascular: Rate and Rhythm: Normal rate and regular rhythm. Pulmonary: Effort: Pulmonary effort is normal. Breath sounds: Normal breath sounds. Abdominal: Palpations: Abdomen is soft. Musculoskeletal: General: Normal range of motion. Skin: General: Skin is warm and dry. Neurological: Mental Status: She is alert and oriented to person, place, and time. Psychiatric: Mood and Affect: Mood normal. Behavior: Behavior normal. Assessment/Plan Problem List Items Addressed This Visit ICD-10-CM HTN (hypertension), benign - Primary I10 Blood pressure is currently well-controlled on valsartan 40 mg and nifedipine 60 mg, will continue with current medications Hypertriglyceridemia E78.1 Hyperuricemia E79.0 Uric acid was not checked at this time however we will check the next time, will refill allopurinol Relevant Medications allopurinol (Zyloprim) 100 mg tablet Other Relevant Orders Basic metabolic panel Follow Up In Nephrology Uric acid Bilateral leg edema R60.0 Does occasionally have some increase in her lower extremity edema, I we will give her some extra Lasix that she can use as needed for lower extremity edema, I did ask her if she has to take this for several days in a row to please notify us as we would need to check her labs and check potassium levels, at this time her edema is well-controlled Relevant Medications furosemide (Lasix) 40 mg tablet Other Relevant Orders Basic metabolic panel Follow Up In Nephrology Resistant hypertension-currently controlled on nifedipine 30 mg Peripheral Edema with Volume Overload-stable on furosemide Possible Sleep Apnea Obesity HLD Acid Reflux Hyperuricemia Multiple Myeloma NSAID Use. Maddi Garcia, ELECTRICAL PROSPECTING ENGINEER-PROGRAM PRODUCTION SPECIALIST, DNP 10/13/23 10:27 AM documented in this encounterMer[facility] Work Phone: [phone]) [phone] Evaluation + Plan note* Assessment & Plan Note - Thelma Frazier DO - 10/06/2023 9:41 AM EDTAssociated Problem(s): Medicare annual wellness visit, subsequent -We discussed fall prevention -We discussed the importance of establishing advanced directives and providing a copy here -We discussed incorporating more vegetables in the diet -We discussed getting more exercise throughout the day [facility] Work Phone: 1([phone]) 554-146205-16-2024 Evaluation + Plan note* Assessment & Plan Note - Thelma Frazier DO - 10/06/2023 9:41 AM EDTAssociated Problem(s): Prediabetes -Her hemoglobin A1c was a little better this time at 5.9 -We remind her to eat a healthy diet, exercise regularly, and try to get as close to ideal body weight as possible [facility] Work Phone: 1([phone] 537-331105-16-2024 Evaluation + Plan note* Assessment & Plan Note - Thelma Frazier DO - 10/06/2023 9:41 AM EDTAssociated Problem(s): Hypertriglyceridemia -Her cholesterol profile was excellent and she will continue with her current medications to lower cholesterol. We will check it again in 1 year per Medicare protocol [facility] Work Phone: 1([phone]) [phone] Miscellaneous Notes* Assessment & Plan Note - Thelma Frazier DO - 10/06/2023 9:41 AM EDTAssociated Problem(s): Medicare annual wellness visit, subsequent -We discussed fall prevention -We discussed the importance of establishing advanced directives and providing a copy here -We discussed incorporating more vegetables in the diet -We discussed getting more exercise throughout the day * Assessment & Plan Note - Thelma Frzaier DO - 10/06/2023 9:41 AM EDT Associated Problem(s): Prediabetes -Her hemoglobin A1c was a little better this time at 5.9 -We remind her to eat a healthy diet, exercise regularly, and try to get as close to ideal body weight as possible * Assessment & Plan Note - Thelma Frazier DO - 10/06/2023 9:41 AM EDT Associated Problem(s): Hypertriglyceridemia -Her cholesterol profile was excellent and she will continue with her current medications to lower cholesterol. We will check it again in 1 year per Medicare protocol * Assessment & Plan Note - Thelma Frazier DO - 10/06/2023 9:40 AM EDT Associated Problem(s): HTN (hypertension), benign -Currently very well-controlled we will continue to monitor regularly documented in this [facility] Work Phone: [phone]) 234-751005-16-2024 Evaluation + Plan note* Assessment & Plan Note - Thelma Frazier DO - 10/06/2023 9:40 AM EDTAssociated Problem(s): HTN (hypertension), benign -Currently very well-controlled we will continue to monitor regularly [facility] Work Phone: [phone] 200-112705-16-2024 History of Present illness Narrative* Thelma Frazier DO - 10/06/2023 9:20 AM EDT Subjective Reason for Visit: Lauri Read is an 73 y.o. female here for a Medicare Wellness visit. Reviewed all medications by prescribing practitioner or clinical pharmacist (such as prescriptions,OTCs, herbal therapies and supplements) and documented in the medical record. HPI She is here today for her routine checkup and we also took this opportunity to complete her annual Medicare wellness visit. She denies any symptoms of depression although she does remark that she is worried about how the world is going these days. She has had no falls and we talked about fall prevention. I have specifically recommended that she put grab bars in her bathroom we also talked about avoiding any loose rugs. Her memory appears to be good. She states she has had problems with hearing especially her right ear because she had inflammation that led to some significant hearing loss. Shestates she is entertaining getting some hearing aids but today during her visit she did pretty goodwith hearing. We also talked about diet and she states she does lack often times and vegetables. Wedid talk about some ways that she could incorporate vegetables more routinely in her diet. We also discussed the importance of exercise and I have specifically recommended chair exercises or swimmingat the [facility]. We also discussed the importance of establishing advanced directives including living will and power of delivery room clerk for healthcare. We also reviewed the results of recent lab work and overall I am pleased with her numbers. Her hemoglobin A1c came back better than last time at 5.9 and she does understand that eating a healthy diet, exercising regularly, and trying to get as close to ideal body weight will help reduce her risk ofdiabetes in the future. Her cholesterol profile was excellent and she states she takes her gemfibrozil once a day. We are providing refills on the medications that we have provided for her and if everything goes according to plan we will see her back in 6 months for reevaluation. Patient Care Team: Thelma Frazier DO as PCP - General Jeet Garcia DO (Nephrology) Review of Systems Constitutional: Negative for unexpected weight change. Respiratory: Negative for cough, shortness of breath and wheezing. Cardiovascular: Negative for chest pain, palpitations and leg swelling. Gastrointestinal: Negative for abdominal pain, blood in stool, diarrhea, nausea and vomiting. Musculoskeletal: Negative for arthralgias and back pain. Objective Vitals: BP 124/80 Pulse 67 Ht 1.448 m (4' 9) Wt 76.7 kg (169 lb) SpO2 97% BMI 36.57 kg/m Physical Exam Vitals and nursing note [...] Results (from the past 672 hour(s)) Hemoglobin A1C Collection Time: 10/04/23 6:54 AM Result Value Ref Range Hemoglobin A1C 5.9 (H) see below % Estimated Average Glucose 123 Not Established mg/dL Lipid Panel Collection Time: 10/04/23 6:54 AM Result Value Ref Range Cholesterol 142 0 - 199 mg/dL HDL-Cholesterol 42.0 mg/dL Cholesterol/HDL Ratio 3.4 LDL Calculated 71 <=99 mg/dL VLDL 29 0 - 40 mg/dL Triglycerides 144 0 - 149 mg/dL Non HDL Cholesterol 100 0 - 149 mg/dL Assessment/Plan Problem List Items Addressed This Visit HTN (hypertension), benign Current Assessment & Plan -Currently very well-controlled we will continue to monitor regularly Relevant Medications valsartan (Diovan) 40 mg tablet NIFEdipine ER (Adalat CC) 60 mg 24 hr tablet Hypertriglyceridemia Current Assessment & Plan -Her cholesterol profile was excellent and she will continue with her current medications to lower cholesterol. We will check it again in 1 year per Medicare protocol Prediabetes Current Assessment & Plan -Her hemoglobin A1c was a little better this time at 5.9 -We remind her to eat a healthy diet, exercise regularly, and try to get as close to ideal body weight as possible Relevant Orders Hemoglobin A1C Medicare annual wellness visit, subsequent - Primary Current Assessment & Plan -We discussed fall prevention -We discussed the importance of establishing advanced directives and providing a copy here -We discussed incorporating more vegetables in the diet -We discussed getting more exercise throughout the day documented [facility]: [phone]) [phone] Instructions* Patient Instructions* Thelma Frazier DO - 10/06/2023 9:20 AM EDT As we discussed please try to increase your daily exercise with the things that we suggested today Please also look at trying to increase your intake of vegetables and with the fresh vegetable season coming up it might be a little bit easier We would like for you to complete advanced directives which includes living will and power of delivery room clerk for healthcare. Once those are completed we would like a copy for your chart here Please remember to put grab bars in the bathroom We will see you back in 6 months and all if ordered is a hemoglobin A1c documented in this [facility] Work Phone: 1([phone]) 435-938604-01-2024 History of Present illness Narrative* Ryan Couch MD - 08/22/2023 3:45 PM EDT Chief Complaint Patient presents with echo f/u HPI: I was requested by Dr. Frazier to evaluate this patient in consultation for cardiac assessment. Mrs. Lauri Read is a 73 y.o. year old non-smoker female patient with past medical history significant for hypertension, prediabetes, obesity, hyperlipidemia, carotid stenosis, leg edema, hyperuricemia, multiple myeloma, coming for assessment of bilateral leg edema. Patient reports that 6 days after having COVID, she started experiencing worsening swelling in both legs. She sometimes reports SOB that she attributes to deconditioning and sequels from COVID. She denies Patient denies chest pain, shortness of breath, palpitations, leg edema, lightheadedness, headaches, fever, chills, orthopnea, paroxysmal nocturnal dyspnea or syncope. EKG shows normal sinus rhythm with no signs of ACS. Prior echo (2019) showing preserved LVEF. Past Medical History Past Medical History: Diagnosis Date Allergic 1958 Anemia 2021 Arthritis 2012 Asthma 1958 Cancer ([facility] 2015 Cataract 2013 GERD (gastroesophageal reflux disease) 2004 Hypertension 2005 Malignant neoplasm of upper-inner quadrant of left female breast ([facility]) 05/02/2015 Personal history of other medical treatment History of mammography, diagnostic Urinary tract infection 1970 Varicella 1957 Visual impairment 2010 Past Surgical History Past Surgical History: Procedure Laterality Date ADENOIDECTOMY 1957 BREAST SURGERY 2014 CHOLECYSTECTOMY 1976 EYE SURGERY 1998 LYMPH NODE BIOPSY 2014 OTHER SURGICAL HISTORY 05/10/2019 Cholecystectomy OTHER SURGICAL HISTORY 05/10/2019 Breast biopsy OTHER SURGICAL HISTORY 05/10/2019 Tubal ligation OTHER SURGICAL HISTORY 05/21/2021 Dilation and curettage TONSILLECTOMY 1957 TUBAL LIGATION 1989 WISDOM TOOTH EXTRACTION 1979 Past Family History Family History Problem Relation Name Age of Onset Hyperlipidemia Mother Lavinia Lowe Miscarriages / Stillbirths Mother Lavinia Lowe Lung cancer Father Danny Lowe Cancer Father Danny Lowe Thyroid disease Sister Asthma Paternal Grandmother Stefanie Lowe Allergy History No Known Allergies Past Social History Social History Socioeconomic History Marital status: Spouse name: None Number of children: None Years of education: None Highest education level: None Occupational History None Tobacco Use Smoking status: Never Smokeless tobacco: Never Vaping Use Vaping Use: Never used Substance and Sexual Activity Alcohol use: Never Drug use: Never Sexual activity: Yes Partners: Male control/protection: Female Sterilization Comment: Post menopausal Other Topics Concern None Social History Narrative None Social Determinants of Health Financial Resource Strain: Not on file Food Insecurity: Not on file Transportation Needs: Not on file Physical Activity: Not on file Stress: Not on file Social Connections: Not on file Intimate Partner Violence: Not on file Housing Stability: Not on file Social History Tobacco Use Smoking Status Never Smokeless Tobacco Never Objective Data: Last Recorded Vitals: Vitals: 08/22/23 1558 BP: 128/64 Pulse: 85 SpO2: 95% Weight: 77.6 kg (171 lb 1.6 oz) Height: 1.448 m (4' 9) Last Labs: CBC - 07/09/2023: 4:05 PM 6.0 11.2 336 34.8 CMP - 07/09/2023: 4:05 PM 9.5 7.1 26 --- 0.5 _ 3.8 32 61 PTT - No results in last year. _ _ _ TROPHS Date/Time Value Ref Range Status 07/09/2023 06:08 PM 14 0 - 13 ng/L Final 07/09/2023 04:05 PM 17 0 - 13 ng/L Final BNP Date/Time Value Ref Range Status 07/09/2023 04:05 PM 90 0 - 99 pg/mL Final HGBA1C Date/Time Value Ref Range Status 03/21/2023 07:29 AM 6.0 see below % Final 04/08/2021 09:38 AM 6.0 % Final Comment: Diagnosis of Diabetes-Adults Non-Diabetic: < or = 5.6% Increased risk for developing diabetes: 5.7-6.4% Diagnostic of diabetes: > or = 6.5% . Monitoring of Diabetes Age (y) Therapeutic Goal (%) Adults: >18 <7.0 Pediatrics: 13-18 <7.5 7-12 <8.0 0- 6 7.5-8.5 [employer]. Diabetes Care 33(S1), May 2009. 05/08/2019 07:46 AM 5.6 % Final Comment: Diagnosis of Diabetes-Adults Non-Diabetic: < or = 5.6% Increased risk for developing diabetes: 5.7-6.4% Diagnostic of diabetes: > or = 6.5% . Monitoring of Diabetes Age (y) Therapeutic Goal (%) Adults: >18 <7.0 Pediatrics: 13-18 <7.5 7-12 <8.0 0- 6 7.5-8.5 [employer]. Diabetes Care 33(S1), May 2009. VLDL Date/Time Value Ref Range Status 08/25/2022 07:41 AM 19 0 - 40 mg/dL Final 04/08/2021 09:38 AM 17 0 - 40 mg/dL Final 01/07/2021 06:55 AM 16 0 - 40 mg/dL Final Patient Medications: Outpatient Encounter Medications as of 08/22/2023 Medication Sig Dispense Refill acyclovir (Zovirax) 400 mg tablet Take 1 tablet (400 mg) by mouth once daily. For 30 days with the start of chemotherapy allopurinol (Zyloprim) 100 mg tablet Take 1 tablet (100 mg) by mouth once daily. dexAMETHasone (Decadron) 4 mg tablet Take 10 tablets (40 mg) by mouth 1 (one) time per week. TAKE 5TABLETS BY MOUTH ONCE A WEEK. TAKE AFTER BREAKFAST WEEKLY ON DAYS SCHEDULED FOR INJECTABLE CHEMOTHERAPY famotidine (Pepcid) 20 mg tablet TAKE 1 TABLET BY MOUTH TWICE DAILY, IN THE MORNING AND 1 BEFORE BEDTIME. (Patient taking differently: Take 1 tablet (20 mg) by mouth once daily.) 60 tablet 2 furosemide (Lasix) 40 mg tablet Take 1 tablet (40 mg) by mouth once daily. gemfibrozil (Lopid) 600 mg tablet Take 1 tablet (600 mg) by mouth once daily. ketoconazole (NIZOral) 2 % cream Apply 1 Application topically 1 time if needed. lenalidomide (Revlimid) 25 mg capsule Take 1 capsule (25 mg total) by mouth once daily. Take 25mg daily for two weeks. Then two weeks off. NIFEdipine ER (Adalat CC) 60 mg 24 hr tablet Take 1 tablet (60 mg) by mouth once daily in the morning. Take before meals. Do not crush, chew, or split. 90 tablet 1 valsartan (Diovan) 40 mg tablet Take 1 tablet (40 mg) by mouth once daily. 30 tablet 2 Ventolin HFA 90 mcg/actuation inhaler Inhale 2 puffs every 4 hours if needed. No facility-administered encounter medications on file as of 08/22/2023. Physical Exam: General: alert, oriented and in no acute distress HEENT: NC/AT; EOMI; PERRLA, external ear is normal Neck: supple; trachea midline; no masses; no JVD Chest: clear breath sounds bilaterally; no wheezing Cardio: regular rhythm, S1S2 normal, no murmurs Abdomen: Soft, non-tender, non-distension, no organomegaly Extremities: Edema 1+/3+ LE b/l Neuro: Grossly intact Psychiatric: Normal mood and affect Past Cardiology Results (Last 3 Years): EKG: ECG 12 Lead 07/09/2023 Echo: Echo Results: Transthoracic Echo (TTE) Complete 08/18/2023 [place] [address] [id number], TRANSTHORACIC ECHOCARDIOGRAM REPORT Patient Name: LAURI READ Reading Physician: [id number] Zafar Parson MD Study Date: 08/18/2023 Ordering Provider: [id number] RYAN COUCH MRN/PID: [id number] Fellow: Nurse: Date of /Age: 1002/25/1950 / 73 years Journey Lineman: Sheldon Mitchell RDCS Gender: F Additional Staff: Height: 144.78 cm Admit Date: Weight: 78.02 kg Admission Status: Outpatient BSA / BMI: 1.69 m2 / 37.22 Department Location: [facility] Echo Lab kg/m2 Blood Pressure: 164 /69 mmHg Study Type: TRANSTHORACIC ECHO (TTE) COMPLETE Diagnosis/ICD: Cardiac murmur, unspecified-R01.1 CPT Codes: Echo Complete w Full Doppler-[id number] Study Detail: The following Echo studies were performed: 2D, M-Mode, Doppler and color flow. PHYSICIAN INTERPRETATION: Left Ventricle: Left ventricular systolic function is hyperdynamic, with an estimated ejection fraction of 65-70%. There are no regional wall motion abnormalities. The left ventricular cavity size isnormal. Spectral Doppler shows an impaired relaxation pattern of left ventricular diastolic filling. Left Atrium: The left atrium is normal in size. Right Ventricle: The right ventricle is normal in size. There is normal right ventricular global systolic function. Right Atrium: The right atrium is normal in size. Aortic Valve: The aortic valve was not well visualized. There is no evidence of aortic valve regurgitation. The peak instantaneous gradient of the aortic valve is 29.8 mmHg. The mean gradient of the aortic valve is 12.0 mmHg. Mitral Valve: The mitral valve was not well visualized. There is no evidence of mitral valve regurgitation. Tricuspid Valve: The tricuspid valve was not well visualized. No evidence of tricuspid regurgitation. Pulmonic Valve: The pulmonic valve is not well visualized. The pulmonic valve regurgitation was notwell visualized. Pericardium: There is no pericardial effusion noted. There is a pericardial fat pad present. Aorta: The aortic root was not well visualized. Systemic Veins: The inferior vena cava appears to be of normal size. There is IVC inspiratory collapse greater than 50%. CONCLUSIONS: 1. Left ventricular systolic function is hyperdynamic with a 65-70% estimated ejection fraction. 2. Spectral Doppler shows an impaired relaxation pattern of left ventricular diastolic filling. 3. Elevated transaortic gradients are likely secondary to hyperdynamic flow. 4. Poorly visualized anatomical structures due to suboptimal image quality. QUANTITATIVE DATA SUMMARY: 2D MEASUREMENTS: Normal Ranges: Ao Root d: 3.10 cm (2.0-3.7cm) LAs: 3.60 cm (2.7-4.0cm) IVSd: 1.12 cm (0.6-1.1cm) LVPWd: 0.99 cm (0.6-1.1cm) LVIDd: 4.01 cm (3.9-5.9cm) LVIDs: 2.32 cm LV Mass Index: 81.6 g/m2 LV % FS 42.1 % LA VOLUME: Normal Ranges: LA Vol A4C: 26.0 ml (22+/-6mL/m2) LA Vol A2C: 30.3 ml LA Vol BP: 28.2 ml LA Vol Index A4C: 15.4ml/m2 LA Vol Index A2C: 18.0 ml/m2 LA Vol Index BP: 16.7 ml/m2 LA Area A4C: 12.2 cm2 LA Area A2C: 13.2 cm2 LA Major [place] A4C: 4.9 cm LA Major [place] A2C: 4.9 cm LA Volume Index: 15.3 ml/m2 LA Vol A4C: 25.9 ml LA Vol A2C: 30.1 ml AORTA MEASUREMENTS: Normal Ranges: Asc Ao, d: 3.50 cm (2.1-3.4cm) LV SYSTOLIC FUNCTION BY 2D PLANIMETRY (MOD): Normal Ranges: EF-A4C View: 65.9 % (>=55%) EF-A2C View: 73.7 % EF-Biplane: 69.8 % LV DIASTOLIC FUNCTION: Normal Ranges: MV Peak E: 1.18 m/s (0.7-1.2 m/s) MV Peak A: 1.48 m/s (0.42-0.7 m/s) E/A Ratio: 0.80 (1.0-2.2) MV lateral e' 0.09 m/s MV medial e' 0.08 m/s MITRAL VALVE: Normal Ranges: MV DT: 232 msec (150-240msec) AORTIC VALVE: Normal Ranges: AoV Vmax: 2.73 m/s (<=1.7m/s) AoV Peak P.8 mmHg (<20mmHg) AoV Mean P.0 mmHg (1.7-11.5mmHg) LVOT Max [place]: 1.82 m/s (<=1.1m/s) AoV VTI: 57.10 cm (18-25cm) LVOT VTI: 39.70 cm LVOT Diameter: 1.50 cm (1.8-2.4cm) AoV Area, VTI: 1.23 cm2 (2.5-5.5cm2) AoV Area,Vmax: 1.18 cm2 (2.5-4.5cm2) AoV Dimensionless Index: 0.70 RIGHT VENTRICLE: RV Basal 3.77 cm RV Mid 2.75 cm RV Major 7.0 cm RV s' 0.20 m/s [id number] Zafar Parson MD Electronically signed on 08/18/2023 at 5:34:25 PM Final Cath: No results found for this or any previous visit from the past 1095 days. CV NCDR CATHPCI V5 COLLECTION FORM Stress Test: No results found for this or any previous visit from the past 1095 days. Cardiac Imaging: No results found for this or any previous visit from the past 1095 days. Assessment/Plan Mrs. Lauri Read is a 73 y.o. year old non-smoker female patient with past medical history significant for hypertension, prediabetes, obesity, hyperlipidemia, carotid stenosis, leg edema, hyperuricemia, multiple myeloma, coming for assessment of bilateral leg edema. Patient reports that 6 days after having COVID, she started experiencing worsening swelling in both legs. She sometimes reports SOB that she attributes to deconditioning and sequels from COVID. She denies Patient denies chest pain, shortness of breath, palpitations, leg edema, lightheadedness, headaches, fever, chills, orthopnea, paroxysmal nocturnal dyspnea or syncope. Assessment # Leg edema post COVID - Bilateral leg edema - EKG shows normal sinus rhythm with no signs of ACS. - Prior echo (2019) showing preserved LVEF. - Worsening chronic leg edema may be related to COVID sequels - Echocardiogram 1. Left ventricular systolic function is hyperdynamic with a 65-70% estimated ejection fraction. 2. Spectral Doppler shows an impaired relaxation pattern of left ventricular diastolic filling. 3. Elevated transaortic gradients are likely secondary to hyperdynamic flow. 4. Poorly visualized anatomical structures due to suboptimal image quality. - US Vascular Lower extremities: Right Lower Venous: No evidence of acute deep vein thrombus visualized in the right lower extremity. Cannot rule out thrombus in non-visualized peroneal vein due to body habitus. Left Lower Venous: No evidence of acute deep vein thrombus visualized in the left lower extremity. - CT calcium scoring is 192 - Will start her on ASA 81mg daily. - Patient counseled to start statins, however she does not want to start it due to fear of muscle pain. We will respect her wishes at this point. - Follow up yearly. # Hypertension - Controlled blood pressure. - Keep current medications with Valsartan 40mg, Nifedipine 60mg daily. - Patient counseled to keep a healthy lifestyle including regular exercise and low-sodium diet. - Recommended home blood pressure monitoring. - Goal of BP < 130/80mmHg. # Hypertriglyceridemia - Controlled by PCP. - Keep home medication with Gemfibrozil daily. - Patient counseled to start statins, however she does not want to start it due to fear of muscle pain. We will respect her wishes at this point. - Counseled on healthy diet and regular exercise. # Hyperuricemia - Keep allopurinol This note was transcribed using the [employer] Dictation system. There may be grammatical, punctuation,or verbiage errors that occur with voice recognition programs. Counseling greater than 50% of visit regarding all cardiac issues. Thank you, Dr. Frazier, for allowing me to participate in the care of this patient. Please do not hesitate to contact me with any further questions or concerns. Ryan Couch MD Cardiology documented in this [facility] Work Phone: [phone]) 778-861903-07-2024 History of Present illness Narrative* Ryan Couch MD - 07/28/2023 3:00 PM EST Chief Complaint Patient presents with Hospital Follow-up Edema BLE HPI: I was requested by Dr. Frazier to evaluate this patient in consultation for cardiac assessment. Mrs. Lauri Read is a 73 y.o. year old non-smoker female patient with past medical history significant for hypertension, prediabetes, obesity, hyperlipidemia, carotid stenosis, leg edema, hyperuricemia, multiple myeloma, coming for assessment of bilateral leg edema. Patient reports that 6 days after having COVID, she started experiencing worsening swelling in both legs. She sometimes reports SOB that she attributes to deconditioning and sequels from COVID. She denies Patient denies chest pain, shortness of breath, palpitations, leg edema, lightheadedness, headaches, fever, chills, orthopnea, paroxysmal nocturnal dyspnea or syncope. EKG shows normal sinus rhythm with no signs of ACS. Prior echo (2019) showing preserved LVEF. Past Medical History Past Medical History: Diagnosis Date Allergic 1958 Anemia 2021 Arthritis 2012 Asthma 1958 Cancer ([facility]) 2014 Cataract 2013 GERD (gastroesophageal reflux disease) 2003 Hypertension 2004 Malignant neoplasm of upper-inner quadrant of left female breast ([facility]) 05/02/2015 Personal history of other medical treatment History of mammography, diagnostic Urinary tract infection 1970 Varicella 1957 Visual impairment 2009 Past Surgical History Past Surgical History: Procedure Laterality Date ADENOIDECTOMY 1957 BREAST SURGERY 2014 CHOLECYSTECTOMY 1976 EYE SURGERY 1998 LYMPH NODE BIOPSY 2014 OTHER SURGICAL HISTORY 05/10/2019 Cholecystectomy OTHER SURGICAL HISTORY 05/10/2019 Breast biopsy OTHER SURGICAL HISTORY 05/10/2019 Tubal ligation OTHER SURGICAL HISTORY 05/21/2021 Dilation and curettage TONSILLECTOMY 1957 TUBAL LIGATION 1989 WISDOM TOOTH EXTRACTION 1978 Past Family History Family History Problem Relation Name Age of Onset Hyperlipidemia Mother Lavinia Lowe Miscarriages / Stillbirths Mother Laviniakathy Lowe Lung cancer Father Danny Mynor Cancer Father Danny Lowe Thyroid disease Sister Asthma Paternal Grandmother Stefanie Lowe Allergy History No Known Allergies Past Social History Social History Socioeconomic History Marital status: Spouse name: None Number of children: None Years of education: None Highest education level: None Occupational History None Tobacco Use Smoking status: Never Smokeless tobacco: Never Vaping Use Vaping Use: Never used Substance and Sexual Activity Alcohol use: Never Drug use: Never Sexual activity: Yes Partners: Male control/protection: Female Sterilization Comment: Post menopausal Other Topics Concern None Social History Narrative None Social Determinants of Health Financial Resource Strain: Not on file Food Insecurity: Not on file Transportation Needs: Not on file Physical Activity: Not on file Stress: Not on file Social Connections: Not on file Intimate Partner Violence: Not on file Housing Stability: Not on file Social History Tobacco Use Smoking Status Never Smokeless Tobacco Never Review of Systems: A total of 12 systems have been reviewed and are negative except for the aforementioned findings described in HPI. Objective Data: Last Recorded Vitals: Vitals: 07/28/23 1500 BP: 124/66 Pulse: 89 SpO2: 97% Weight: 78.2 kg (172 lb 4.8 oz) Height: 1.448 m (4' 9) Last Labs: CBC - 07/09/2023: 4:05 PM 6.0 11.2 336 34.8 CMP - 07/09/2023: 4:05 PM 9.5 7.1 26 --- 0.5 _ 3.8 32 61 PTT - No results in last year. _ _ _ TROPHS Date/Time Value Ref Range Status 07/09/2023 06:08 PM 14 0 - 13 ng/L Final 07/09/2023 04:05 PM 17 0 - 13 ng/L Final BNP Date/Time Value Ref Range Status 07/09/2023 04:05 PM 90 0 - 99 pg/mL Final HGBA1C Date/Time Value Ref Range Status 03/21/2023 07:29 AM 6.0 see below % Final 04/08/2021 09:38 AM 6.0 % Final Comment: Diagnosis of Diabetes-Adults Non-Diabetic: < or = 5.6% Increased risk for developing diabetes: 5.7-6.4% Diagnostic of diabetes: > or = 6.5% . Monitoring of Diabetes Age (y) Therapeutic Goal (%) Adults: >18 <7.0 Pediatrics: 13-18 <7.5 7-12 <8.0 0- 6 7.5-8.5 [employer]. Diabetes Care 33(S1)May 2009. 05/08/2019 07:46 AM 5.6 % Final Comment: Diagnosis of Diabetes-Adults Non-Diabetic: < or = 5.6% Increased risk for developing diabetes: 5.7-6.4% Diagnostic of diabetes: > or = 6.5% . Monitoring of Diabetes Age (y) Therapeutic Goal (%) Adults: >18 <7.0 Pediatrics: 13-18 <7.5 7-12 <8.0 0- 6 7.5-8.5 [employer]. Diabetes Care 33(S1), May 2009. VLDL Date/Time Value Ref Range Status 08/25/2022 07:41 AM 19 0 - 40 mg/dL Final 04/08/2021 09:38 AM 17 0 - 40 mg/dL Final 01/07/2021 06:55 AM 16 0 - 40 mg/dL Final Patient Medications: Outpatient Encounter Medications as of 07/28/2023 Medication Sig Dispense Refill allopurinol (Zyloprim) 100 mg tablet Take 1 tablet (100 mg) by mouth once daily. dexAMETHasone (Decadron) 4 mg tablet Take 10 tablets (40 mg) by mouth 1 (one) time per week. TAKE 5TABLETS BY MOUTH ONCE A WEEK. TAKE AFTER BREAKFAST WEEKLY ON DAYS SCHEDULED FOR INJECTABLE CHEMOTHERAPY famotidine (Pepcid) 20 mg tablet TAKE 1 TABLET BY MOUTH TWICE DAILY, IN THE MORNING AND 1 BEFORE BEDTIME. (Patient taking differently: Take 1 tablet (20 mg) by mouth once daily.) 60 tablet 2 furosemide (Lasix) 40 mg tablet Take 1 tablet (40 mg) by mouth once daily. ketoconazole (NIZOral) 2 % cream Apply 1 Application topically 1 time if needed. lenalidomide (Revlimid) 25 mg capsule Take 1 capsule (25 mg total) by mouth once daily. Take 25mg daily for two weeks. Then two weeks off. NIFEdipine ER (Adalat CC) 60 mg 24 hr tablet Take 1 tablet (60 mg) by mouth once daily in the morning. Take before meals. Do not crush, chew, or split. 90 tablet 1 valsartan (Diovan) 40 mg tablet Take 1 tablet (40 mg) by mouth once daily. 30 tablet 2 acyclovir (Zovirax) 400 mg tablet Take 1 tablet (400 mg) by mouth once daily. For 30 days with the start of chemotherapy gemfibrozil (Lopid) 600 mg tablet Take 1 tablet (600 mg) by mouth once daily. Ventolin HFA 90 mcg/actuation inhaler Inhale 2 puffs every 4 hours if needed. No facility-administered encounter medications on file as of 07/28/2023. Physical Exam: .General: alert, oriented and in no acute distress HEENT: NC/AT; EOMI; PERRLA, external ear is normal Neck: supple; trachea midline; no masses; no JVD Chest: clear breath sounds bilaterally; no wheezing Cardio: regular rhythm, S1S2 normal, no murmurs Abdomen: Soft, non-tender, non-distension, no organomegaly Extremities: Edema 1+/3+ LE b/l Neuro: Grossly intact Psychiatric: Normal mood and affect Past Cardiology Results (Last 3 Years): EKG: ECG 12 Lead 07/09/2023 Echo: Echo Results: No results found for this or any previous visit from the past 365 days. Cath: No results found for this or any previous visit from the past 1095 days. CV NCDR CATHPCI V5 COLLECTION FORM Stress Test: No results found for this or any previous visit from the past 1095 days. Cardiac Imaging: No results found for this or any previous visit from the past 1095 days. Assessment/Plan Mrs. Lauri Read is a 73 y.o. year old non-smoker female patient with past medical history significant for hypertension, prediabetes, obesity, hyperlipidemia, carotid stenosis, leg edema, hyperuricemia, multiple myeloma, coming for assessment of bilateral leg edema. Patient reports that 6 days after having COVID, she started experiencing worsening swelling in both legs. She sometimes reports SOB that she attributes to deconditioning and sequels from COVID. She denies Patient denies chest pain, shortness of breath, palpitations, leg edema, lightheadedness, headaches, fever, chills, orthopnea, paroxysmal nocturnal dyspnea or syncope. Assessment # Leg edema post COVID - Bilateral leg edema - EKG shows normal sinus rhythm with no signs of ACS. - Prior echo (2019) showing preserved LVEF. - Worsening chronic leg edema may be related to COVID sequels - Will request echocardiogram, CT calcium scoring - Follow up after tests. # Hypertension - Controlled blood pressure. - Keep current medications with Valsartan 40mg, Nifedipine 60mg daily. - Patient counseled to keep a healthy lifestyle including regular exercise and low-sodium diet. - Recommended home blood pressure monitoring. - Goal of BP < 130/80mmHg. # Hypertriglyceridemia - Controlled by PCP. - Keep home medication with Gemfibrozil daily. - Would suggest to start her on statins if no contra-indications. - Counseled on healthy diet and regular exercise. # Hyperuricemia - Keep allopurinol This note was transcribed using the [employer] Dictation system. There may be grammatical, punctuation,or verbiage errors that occur with voice recognition programs. Counseling greater than 50% of visit regarding all cardiac issues. Thank you, Dr. Frazier, for allowing me to participate in the care of this patient. Please do not hesitate to contact me with any further questions or concerns. Ryan Couch MD Cardiology documented in this [facility] Work Phone: [phone]) 571-143102-29-2024 Evaluation + Plan note* Assessment & Plan Note - Thelma Frazier DO - 07/21/2023 10:54 AM ESTAssociated Problem(s): Bilateral leg edema -Again she had a visit to the emergency department on July 09 for what appeared to be an abruptonset of lower extremity edema bilaterally. She received IV Lasix and then continued her routine Lasix 40 mg daily thereafter. She has had significant improvement with her symptoms. They made an appointment for her to see cardiology and she will go ahead and keep the appointment for an assessment. [facility] Work Phone: [phone]) 849-947502-29-2024 Miscellaneous Notes* Assessment & Plan Note - Thelma Frazier DO - 07/21/2023 10:54 AM ESTAssociated Problem(s): Bilateral leg edema -Again she had a visit to the emergency department on July 09 for what appeared to be an abruptonset of lower extremity edema bilaterally. She received IV Lasix and then continued her routine Lasix 40 mg daily thereafter. She has had significant improvement with her symptoms. They made an appointment for her to see cardiology and she will go ahead and keep the appointment for an assessment. * Assessment & Plan Note - Thelma Frazier DO - 07/21/2023 10:53 AM EST Associated Problem(s): Spinal enthesopathy, lumbar region (CMS/HCC) -She did have some pain involving her left and right lower extremity in the L3- L5 dermatomal distribution. The symptoms have completely resolved as of now so we will continue to monitor * Assessment & Plan Note - Thelma Frazier DO - 07/21/2023 10:52 AM EST Associated Problem(s): HTN (hypertension), benign -Currently her blood pressure is excellent and she appears to be tolerating her new antihypertensive regimen. She will continue to check her blood pressures at home periodically when she has the opportunity to sit and relax documented [facility] Work Phone: [phone]) 670-779002-29-2024 Evaluation + Plan note* Assessment & Plan Note - Thelma Frazier DO - 07/21/2023 10:53 AM ESTAssociated Problem(s): Spinal enthesopathy, lumbar region (CMS/HCC) -She did have some pain involving her left and right lower extremity in the L3- L5 dermatomal distribution. The symptoms have completely resolved as of now so we will continue to monitor [facility] Work Phone: 1([phone]) 284-626902-29-2024 Evaluation + Plan note* Assessment & Plan Note - Thelma Frazier DO - 07/21/2023 10:52 AM ESTAssociated Problem(s): HTN (hypertension), benign -Currently her blood pressure is excellent and she appears to be tolerating her new antihypertensive regimen. She will continue to check her blood pressures at home periodically when she has the opportunity to sit and relax [facility] Work Phone: 1(197) 704-195402-29-2024 History of Present illness Narrative* Thelma Frazier DO - 07/21/2023 10:40 AM EST Subjective Patient ID: Lauri Read is a 73 y.o. female who presents for Follow-up (New med-no compliants). HPI She is here today for what represents a several week follow-up. We saw her last time we discovered that her blood pressure was not under good control and we made some adjustments in medication. We had decreased her nifedipine from 90 down to 60 mg and we added valsartan. She has been checking her blood pressures at home and overall she has been getting relatively good readings. We both agree thatshe seems to be tolerating this new medical regimen. Oddly enough on the 17 of this month she haddeveloped severe pain just below the left knee and distal anterior leg. It is in was actually in the L3 dermatomal distribution. She then developed some leg swelling bilaterally. She went to the emergency department and there they did multiple tests including a CT scan of her abdomen and pelvis, laboratory test and chest x-ray. They found nothing of a serious nature and they did give her a dose of intravenous Lasix while she was there. She states it took a couple of days and then the fluid mobilized. She states she has been doing relatively well since that time. She is already on daily Lasix b ut no doses have been changed. Her potassium level was low in the emergency department but she has lab work done regularly with her oncologist and she reports her most recent potassium level was in the 4 range. Today she is looking relatively good. She states she did have an appointment made to seecardiology because of the leg swelling and I told her since she already has the appointment it would be perfectly fine to go see them and get an opinion. I do believe that the pain in her leg may have stemmed from her lumbar degenerative disc disease and we will continue to monitor as she is symptom-free at this time. Objective Physical Exam Vitals and nursing note [...] ICD-10-CM HTN (hypertension), benign - Primary I10 -Currently her blood pressure is excellent and she appears to be tolerating her new antihypertensive regimen. She will continue to check her blood pressures at home periodically when she has the opportunity to sit and relax Spinal enthesopathy, lumbar region (CMS/HCC) M46.06 -She did have some pain involving her left and right lower extremity in the L3- L5 dermatomal distribution. The symptoms have completely resolved as of now so we will continue to monitor Bilateral leg edema R60.0 -Again she had a visit to the emergency department on July 09 for what appeared to be an abruptonset of lower extremity edema bilaterally. She received IV Lasix and then continued her routine Lasix 40 mg daily thereafter. She has had significant improvement with her symptoms. They made an appointment for her to see cardiology and she will go ahead and keep the appointment for an assessment. Thelma Frazier DO documented in this [facility] Work Phone: [phone]) 118-967202-29-2024 Instructions* Patient Instructions* Thelma Frazier DO - 07/21/2023 10:40 AM EST As we discussed I am pleased with your blood pressure today and the fact that you are tolerating your medication well. Please continue taking your blood pressure medications as directed Please also keep an eye on your blood pressure periodically to make sure you have the opportunity to sit and relax for 10 minutes before checking your blood pressure I am glad that your swelling has resolved and we are not exactly sure what caused that incident. Since you already have an appointment to see cardiology please keep the appointment We will see you back in September as previously planned and sooner if any problems documented in this [facility]Mer[facility] Work Phone: [phone]) 908-234202-17-2024 Reason for referral (narrative)* Consultation (Routine) - Authorized Specialty Diagnoses / Procedures Referred By Contcarolina t Referred To Contact Cardiology Krista Latham PA-C [address] [place] [id number] Referral ID Status Reason Start Date Expiration Date Visits Requested Visits Authorized [id number] Authorized Specialty Services Required 07/09/2023 07/08/2024 1 1 * Consultation (Routine) - Authorized Specialty Diagnoses / Procedures Referred By Contcarolina t Referred To Contact Family Medicine / Primary Care Krista Latham PA-C [address] [place] [id number] Referral ID Status Reason Start Date Expiration Date Visits Requested Visits Authorized [id number] Authorized Specialty Services Required 07/09/2023 07/08/2024 [address] [facility] Work Phone: [phone]) 424-402801-17-2024 Evaluation + Plan note* Assessment & Plan Note - Thelma Frazier DO - 06/08/2023 12:04 PM ESTAssociated Problem(s): Spinal enthesopathy, lumbar region (CMS/HCC) -Stable [facility] Work Phone: [phone]) 247-321001-17-2024 Evaluation + Plan note* Assessment & Plan Note - Thelma Frazier DO - 06/08/2023 12:04 PM ESTAssociated Problem(s): Multiple myeloma (CMS/HCC) -She will continue with her oncologist for now and she is on Revlimid -She had recent MRIs this month and we discussed the findings and the effects on her spine [facility] Work Phone: 1([phone]) 444-631301-17-2024 Evaluation + Plan note* Assessment & Plan Note - Thelma Frazier DO - 06/08/2023 12:04 PM ESTAssociated Problem(s): HTN (hypertension), benign -We are increasing her amlodipine from 60 mg up to 90 mg daily -She will stop the new medicine and we will see her back in a couple of weeks She will check her blood pressure at home and bring her personal monitoring device with- [facility] Work Phone: [phone]) 545-443701-17-2024 Miscellaneous Notes* Assessment & Plan Note - Thelma Frazier DO - 06/08/2023 12:04 PM ESTAssociated Problem(s): Spinal enthesopathy, lumbar region (CMS/HCC) -Stable * Assessment & Plan Note - Thelma Frazier DO - 06/08/2023 12:04 PM EST Associated Problem(s): Multiple myeloma (CMS/HCC) -She will continue with her oncologist for now and she is on Revlimid -She had recent MRIs this month and we discussed the findings and the effects on her spine * Assessment & Plan Note - Thelma Frazier DO - 06/08/2023 12:04 PM EST Associated Problem(s): HTN (hypertension), benign -We are increasing her amlodipine from 60 mg up to 90 mg daily -She will stop the new medicine and we will see her back in a couple of weeks She will check her blood pressure at home and bring her personal monitoring device with- documented in this [facility] Work Phone: 1([phone]) 716-924201-17-2024 History of Present illness Narrative* Thelma Frazier, DO - 06/08/2023 11:40 AM EST Subjective Patient ID: Lauri Read is a [...] and she has had a change in hertherapy. She is now taking Revlimid because her [...] that this is stemming from the myeloma a nd that is why they are changing therapy [...] this month and she does go to [place] for her exams. We will help get [...] 90 mg 24 hr tablet Multiple myeloma ([facility]/HCC) C90.00 -She will continue with her oncologist for now and she is on Revlimid -She had recent MRIs this month and we discussed the findings and the effects on her spine Spinal enthesopathy, lumbar region (CMS/HCC) M46.06 -Stable Obesity, morbid (CMS/HCC) E66.01 Other Visit Diagnoses Codes Encounter for screening mammogram for malignant neoplasm of breast Z12.31 Relevant Orders BI mammo bilateral screening tomosynthesis Thelma Frazier DO documented in this encounterMer[facility] Work Phone: 1([phone]) 290-224601-17-2024 Instructions* Patient Instructions* Thelma Frazier DO - 06/08/2023 11:40 AM EST As we discussed we are changing the dose of your nifedipine from 60 mg up to 90 mg a day and to send a new prescription to your pharmacy. Please start the new dose right away and please keep checkingyour blood pressure at home. Please call me if you are having any problems with this medication andotherwise I want to see you back in approximately 2 weeks and please remember to bring your monitor with you The staff will be helping you to schedule your mammogram over in [place] documented in this encounterMer[facility] Work Phone: [phone]) 843-975411-02-2023 Evaluation + Plan note* Assessment & Plan Note - Thelma Frazier DO - 03/24/2023 10:23 AM EDTAssociated Problem(s): Spinal enthesopathy, lumbar region (CMS/HCC) -Her condition has been stable [facility] Work Phone: [phone]) 224-101011-02-2023 Evaluation + Plan note* Assessment & Plan Note - Thelma Frazier DO - 03/24/2023 10:23 AM EDTAssociated Problem(s): GERD (gastroesophageal reflux disease) -Currently stable -She will continue with famotidine 20 mg twice daily [facility] Work Phone: [phone] 281-282711-02-2023 Miscellaneous Notes* Assessment & Plan Note - Thelma Frazier DO - 03/24/2023 10:23 AM EDTAssociated Problem(s): Spinal enthesopathy, lumbar region (CMS/HCC) -Her condition has been stable * Assessment & Plan Note - Thelma Frazier DO - 03/24/2023 10:23 AM EDT Associated Problem(s): GERD (gastroesophageal reflux disease) -Currently stable -She will continue with famotidine 20 mg twice daily * Assessment & Plan Note - Thelma Anusha DO Freddie - 03/24/2023 10:22 AM EDT Associated Problem(s): Impacted cerumen of right ear -We are going to flush her right ear of cerumen this morning * Assessment & Plan Note - Thelma Frazier DO - 03/24/2023 10:22 AM EDT Associated Problem(s): HTN (hypertension), benign -Her blood [...] nifedipine dose if necessary documented in this [facility]Mer[facility] Phone: [phone]) 299-321411-02-2023 Evaluation + Plan note* Assessment & Plan Note - Thelma Frazier DO - 03/24/2023 10:22 AM EDTAssociated Problem(s): Impacted cerumen of right ear -We are going to flush her right ear of cerumen this morning [facility] Work Phone: [phone] 533-881011-02-2023 Evaluation + Plan note* Assessment & Plan Note - Thelma Frazier DO - 03/24/2023 10:22 AM EDTAssociated Problem(s): HTN (hypertension), benign -Her blood pressure [...] nifedipine dose if necessary [facility] Work Phone: [phone]) 558-101811-02-2023 History of Present illness Narrative* Thelma Frazier DO - 03/24/2023 10:00 AM EDT Subjective Patient ID: Lauri Read is a [...] check her hemoglobin A1c again as well alex cholesterol. Review of Systems Constitutional: Positive for [...] her right ear of cerumen this morning Thelma Frazier DO documented in this encounterUnS[facility] Work Phone: [phone]) [phone] Instructions* Patient Instructions* Thelma Frazier DO - 03/24/2023 10:00 AM EDT As we discussed I am a little concerned about your blood pressure and I would like for you to checkyour blood pressure at home with your personal device when you have the opportunity to sit and relax for 10 to 20 minutes. After checking several readings over the next several weeks please give me an update on how you are doing Please know that you can always call but there is also a way to message through [employer] We are going to flush your ear today and please let us know if you are not doing well If you change your mind about the Prevnar 20 pneumonia vaccine please let us know We will see you back in 6 months and just prior to that visit you will need to have a fasting bloodtest so that we can check your cholesterol and your hemoglobin A1c documented in this encounterUnShelby [facility] Work Phone: [phone]) 309-304804-06-2023 Evaluation + Plan note* Assessment & Plan Note - Thelma Frazier DO - 08/26/2022 9:56 AM EDTAssociated Problem(s): Medicare annual wellness visit, initial -We discussed the importance of establishing advanced directives [facility] Work Phone: [phone] 265-549904-06-2023 Miscellaneous Notes* Assessment & Plan Note - Thelma Frazier DO - 08/26/2022 9:56 AM EDTAssociated Problem(s): Medicare annual wellness visit, initial -We discussed the importance of establishing advanced directives * Assessment & Plan Note - Thelma Frazier DO - 08/26/2022 9:55 AM EDT Associated Problem(s): Hypertriglyceridemia -Her cholesterol profile is excellent -She will continue with Lopid 600 mg daily -We will check her cholesterol once a year per Medicare guidelines * Assessment & Plan Note - Thelma Frazier DO - 08/26/2022 9:55 AM EDT Associated Problem(s): Prediabetes -We are ordering a hemoglobin A1c to be done just prior to her next visit -We encourage again routine exercise with healthy diet and weight loss * Assessment & Plan Note - Thelma Frazier DO - 08/26/2022 9:55 AM EDT Associated Problem(s): GERD (gastroesophageal reflux disease) -Her acid reflux symptoms have flared and she was only taking the Pepcid once daily. We will have her go to twice daily and I have sent a new prescription. She will call if her symptoms do not improve soon -She does not use rebz-zwr-zuwmlnx NSAIDs * Assessment & Plan Note - Thelma Frazier DO - 08/26/2022 9:54 AM EDT Associated Problem(s): HTN (hypertension), benign -Her blood pressure is currently well controlled and she will continue taking nifedipine CC 30 mg once daily -Furosemide 40 mg 1 tablet daily documented in this [facility] Work Phone: [phone]) [phone] Evaluation + Plan note* Assessment & Plan Note - Thelma Frazier DO - 08/26/2022 9:55 AM EDTAssociated Problem(s): Hypertriglyceridemia -Her cholesterol profile is excellent -She will continue with Lopid 600 mg daily -We will check her cholesterol once a year per Medicare guidelines [facility] Work Phone: [phone] Evaluation + Plan note* Assessment & Plan Note - Thelma Frazier DO - 08/26/2022 9:55 AM EDTAssociated Problem(s): Prediabetes -We are ordering a hemoglobin A1c to be done just prior to her next visit -We encourage again routine exercise with healthy diet and weight loss [facility] Work Phone: [phone] Evaluation + Plan note* Assessment & Plan Note - Thelma Frazier DO - 08/26/2022 9:55 AM EDTAssociated Problem(s): GERD (gastroesophageal reflux disease) -Her acid reflux symptoms have flared and she was only taking the Pepcid once daily. We will have her go to twice daily and I have sent a new prescription. She will call if her symptoms do not improve soon -She does not use qyqa-ldn-ewurdyr NSAIDs [facility] Work Phone: [phone] Evaluation + Plan note* Assessment & Plan Note - Thelma Frazier DO - 08/26/2022 9:54 AM EDTAssociated Problem(s): HTN (hypertension), benign -Her blood pressure is currently well controlled and she will continue taking nifedipine CC 30 mg once daily -Furosemide 40 mg 1 tablet daily [facility] Work Phone: [phone] History of Present illness Narrative* Lizzy Curiel MA - 08/26/2022 9:20 AM EDT Pt is here today for a 6 month check up, she is also due for a [facility] wellness exam. Review labs. * Thelma Frazier DO - 08/26/2022 9:20 AM EDT Subjective Reason for Visit: Lauri Read is an 72 y.o. female here for a Medicare Wellness visit. Past Medical, Surgical, and Family History reviewed and updated in chart. Reviewed all medications by prescribing practitioner or clinical pharmacist (such as prescriptions,OTCs, herbal therapies and supplements) and documented in the medical record. HPI She is here today for her general checkup and we also completed her annual Medicare wellness visit.In a lot of ways she is doing [...] done routinely through her specialist. We will bechecking a hemoglobin A1c at her next visit. She is currently being treated for multiple myeloma. We also discussed the importance of healthy diet that is well-balanced and also to start exercising. She has enjoyed swimming in the pool and I encouraged her to get back to doing so. We also discussedthe importance of establishing advanced directives Patient Care Team: Thelma Frazier DO as PCP - General Jeet Garcia DO (Nephrology) Review of Systems Constitutional: Negative for fatigue. Respiratory: Negative for cough, chest tightness, shortness of breath and wheezing. Cardiovascular: Negative for chest pain, palpitations and leg swelling. Gastrointestinal: Positive for abdominal pain. Negative for blood in stool, diarrhea, nausea and vomiting. Musculoskeletal: Negative for arthralgias and back pain. Objective Vitals: BP 138/76 Pulse 68 Ht 1.448 m (4' 9) Wt 69.9 kg (154 lb) SpO2 97% [...] not improve soon -She does not use blkv-qxg-toaxfxk NSAIDs Relevant Medications famotidine (Pepcid) 20 mg [...] Follow Up In Primary Care Multiple myeloma ([facility]) Medicare annual wellness visit, initial - Primary -We discussed the importance of establishing advanced directives documented in [facility] Phone: [phone]) 178-829804-06-2023 Instructions* Patient Instructions* Thelma Frazier DO - 08/26/2022 9:20 AM EDT -Please remember that I would like for you to take your Pepcid or famotidine twice daily and pleasecall if your gastrointestinal symptoms do not improve or resolve Remember that we discussed the importance of establishing both a living will and power of delivery room clerk for healthcare. If you have these documents please provide a copy for your chart here and if you do not we encourage you to establish them -If everything goes according to plan I will see you back in 6 months and please remember to get fasting lab work prior to that visit documented in this encounterUnShelby [facility] Work Phone: [phone] History of Present illness Narrative* Paulo Barakat MD, PhD - 02/16/2022 3:20 PM EDT Care team: Jeet Garcia, Thelma Frazier, Niels Grimes, Salvador Flores, Yusuf Leyva CC: Myeloma HPI Ms. Read is a very pleasant 71 y.o. woman diagnosed with myeloma. She has been under the excellent care of Dr Leyva in [place]. She is doing well. A complete response by serum restaging was documented a few months ago! She has tolerated treatmentwell but has accumulating side effects now. She would like to consider shifting gears towards a maintenance type strategy. ROS A complete ROS was obtained, no fever, no vomiting and is negative otherwise. PMH 1. Myeloma 2. HTN 3. Granuloma annulare 4. Obesity 5. GERD 6. Carpel tunnel 7. Hyperglycemia 8. Carotid stenosis 9. Hyperuricemia 10. Breast cancer (2014, lumpectomy/radiation) 11. COVID19 infection (April 2021) SH No tobacco, no alcohol use, 1 son (works at [employer]), 1 daughter, 1 great grand child now in [place], , her used to work for the state [employer] FH Father with lung cancer BP 154/75 [...] tablet Chew 81 mg daily. Bioflavonoid Products (VANNESSA C PO) take 4,000 mg by mouth [...] PRODUCT congaplex HERBAL PRODUCT emzymacore HERBAL PRODUCT [place] 3 HERBAL PRODUCT frisian black radish HERBAL PRODUCT Kidney Well HERBAL PRODUCT Joint Ease HERBAL PRODUCT Pectasol C lenalidomide (Revlimid) 15 MG capsule Take 15 mg by mouth daily. Patient taking Days 1-14 of 21 daycycle. losartan-hydrochlorothiazide 100-25 MG Tab tablet Take 1 [...] cells, suggestive of associated fibrosis, flow: KLC, CD56,dim CD20, 46 XX, Assessment and plan Ms. Read is a very pleasant 71 y.o. woman with a diagnosis of myeloma. She'll continue in the very good care of Dr. Leyva locally. Will plan for non- transplant modality based care. In total, 35 minutes were spent in face to face clinic visit with patient today, of which >35 minutes were in counseling / coordination of care regarding r/b/a to transplant and other options. At this point, I think it's reasonable to consider maintenance. We discussed using either Velcade every other week orsingle agent lenalidomide. She prefers Velcade. See note to care team for all details and additional information from today's visit. documented in this encounterOSU [facility] Instructions* Patient Instructions* Paulo Barakat MD, PhD - 02/16/2022 3:20 PM EDT Patient education Your treatment Velcade/Dex/Revlimid From today's visit - recommend finishing Revlimid and then stopping this medication - would recommend doing a cycle of Velcade and dexamethasone then stop dexamethasone and proceed with every other week Velcade as a maintenance strategy documented in this encounterU [facility] Chief complaint Narrative - Reported* An interactive audio and video telecommunication system which permits real time communications between the patient (at the originating site) and provider (at the distant site) was utilized to providethis telehealth service. * Tested positive for COVID this morning. Body aches. This note was generated by using [employer] software. It may contain errors in wording, punctuate, or spelling. * We discussed her recent positive COVID-19 test. She checked it this morning. We are reminded that she had COVID-19 before. She has been vaccinated but did not have a recent booster. During our virtual visit she started crying out in pain and told me she was having pain and points to the right upperquadrant of her abdomen. She states that this happens periodically and has been doing so for the past couple of months. She states that she told her other providers about it and they did not seem pavithra concerned . She appeared quite uncomfortable but then it passed. I told her that given the degree of pain she is experiencing and wanted her to go to the emergency room but she refused to go. Elver agreed to see me in a couple of weeks to evaluate her symptoms. -[facility] Work Phone: [phone] Instructions* Patient Instructions* Paulo Barakat MD, PhD - 10/13/2021 4:13 PM EDT Patient education Your treatment Velcade (bortezomib), Revlimid (lenalidomide), and dexamethasone From today's visit - As long as tolerability is good and efficacy continues to improve, would recommend continuing on Velcade, Revlimid and dexamethasone. - I will send a note to you and Dr Carney about summary and recommendations documented in this [facility] History of Present illness Narrative* Paulo Barakat MD, PhD - 10/13/2021 3:20 PM EDT Care team: Jeet Garcia, Thelma Frazier, Niels Grimes, Salvador Flores, Yusuf Leyva CC: Myeloma HPI Ms. Read is a very pleasant 71 y.o. woman diagnosed with myeloma. Since our first visit, she has begun therapy with Dr Leyva in [place]. She is doing well. We conducted a video visit today in lieu of in person due to the coronavirus pandemic. There is a nice response evident in her restaging labs. She is not interested in SCT. She could notforesee pursuing this option in any case, in [...] no alcohol use, 1 son (works at [employer]), 1 daughter, 1 great grand child now in [place], , her used to work for the state [employer] FH Father with lung cancer BP 153/68 (BP Position: Sitting) Pulse 92 Temp 98.5 F (36.9 C) (Oral) Resp 18 Ht 1.461 m (4' 9.5) Wt 67.6 kg (149 lb) SpO2 95% [...] 5 mg by mouth daily.. Bioflavonoid Products (VANNESSA C PO) take 4,000 mg by mouth at bedtime. bisoprolol-hydrochlorothiazide 10-6.25 MG Tab take 2 tablets by mouth daily with breakfast. HERBAL PRODUCT 2 tablets 2 times daily. [place] HERBAL PRODUCT ningxia HERBAL PRODUCT cyruta +t HERBAL PRODUCT cataplex HERBAL PRODUCT congaplex HERBAL PRODUCT emzymacore HERBAL PRODUCT [place] 3 HERBAL PRODUCT frisian black radish losartan-hydrochlorothiazide 100-25 MG Tab tablet [...] cells, suggestive of associated fibrosis, flow: KLC, CD56,dim CD20, 46 XX, Assessment and plan Ms. Read is a very pleasant 71 y.o. woman with a diagnosis of myeloma. She'll continue in the very good care of Dr. Leyva locally. Will plan for non- transplant modality based care. In total, 35 minutes [...] details and additional information from today's visit. * Jamila Donaldson RN - 10/13/2021 3:20 PM EDT Reviewed After Visit Summary with patient and family. Discussed any medication changes and recommendations from physician. All questions answered. Patient and family encouraged to call with any additional questions. [facility] History of Present illness Narrative* She is here for follow-up secondary to resistant hypertension. She is on allopurinol, Lasix, nifedipine, she also does use NSAIDs on a daily basis * Her blood pressure today is 130/78. At home if she is taking her blood pressures and she is averaging in the 130 over 70s. * She had blood work drawn on September 22 * Her blood work shows a hemoglobin of 12.0 her BUN is 15 with a creatinine of 0.64 her albumin is a little on the low side at 2.9 her electrolytes look pretty normal her bicarb is 30 * She is feeling well. * No complaints. * She has some swelling. * She is trying to slate picker her activity. [facility] Work Phone: [phone]) [phone] NoteTherapy Diagnosis Assessed Left shoulder pain (759.41) (M25.512) Shoulder pain, right (719.41) (M25.121) Plan Goals: Goals set and discussed today. [...] number: 8 supervising PT MY Medicare, [employer] Supplement Onset Date: 2020 Medicare Certification Period: [...] code time is 25 minutes. Therapeutic exercise (03951): timed minutes 34, units 2 . pulleys [...] cross arm adduction stretch R 3 x 10. Manual Therapy (55532):. supine PROM R GH flexion, scaption, ER at 45* abd X STW; to R UT and upper arm X. Provided today: a personalized home program (Scanned) and education . pulleys and scaption HEP 07/28/11 [id number], provided and reviewed with patient. 'Scores and Scales' Signatures Electronically signed by : Jeanne Mason PT; Jul 31 2021 1:07PM EST (Author) Reviewed by : Thelma Frazier DO; Aug 02 2021 7:10PM [id number] Chief complaint Narrative - Reported* An interactive audio and video telecommunication system which permits real time communications between the patient (at the originating site) and provider (at the distant site) was utilized to providethis telehealth service. * Tested positive for COVID 04/21/21, Has had symptoms since 04/19/21. C/O Sore throat, Fever, Congestion, sinus pressure and cough. This note was generated by using ShowKit software. It may contain errors in wording, punctuate, or spelling. * She indicates that she recently developed a sore [...] a review of systems. BP was high. -[facility] Work Phone: [phone]) 219-954106-01-2021 History of Present illness Narrative* She is here for follow-up secondary to resistant hypertension with peripheral edema and volume overload. * She has a blood pressure readings here with her from home. She has blood pressure readings from Septemberand October all the way through the present with blood pressure readings every day to every 2 to 3 days. * At home her blood pressure readings seem to be running fairly consistently. Her blood pressures arereading anywhere from 1 20-1 40 for the [...] seems to be well controlled at this time * She is currently on valsartan 320 mg nifedipine 30 mg and furosemide 40 mg. * She had blood work drawn on March 13 * Her metabolic panel looks pretty good at this time her BUN is 22 with a creatinine of 0.89 the onlymajor abnormality is her sodium is low at 129 and she has had some low sodium readings recently. * She states she is doing well. * NO issues. * Swelling is good. * Drinks 32 ounces of water, 1 pop and 12-16 ounces of coffee. * Sh eonly drinks when she is thirsty. [facility] 3 DO Work Phone: [phone] History of Present illness Narrative* She is here for follow-up secondary to resistant hypertension with peripheral edema and volume overload. * She has a blood pressure readings here with her from home. She has blood pressure readings from Septemberand October all the way through the present with blood pressure readings every day to every 2 to 3 days. * At home her blood pressure readings seem to be running fairly consistently. Her blood pressures arereading anywhere from 1 20-1 40 for the [...] seems to be well controlled at this time * She is currently on valsartan 320 mg nifedipine 30 mg and furosemide 40 mg. * She had blood work drawn on March 13 * Her metabolic panel looks pretty good at this time her BUN is 22 with a creatinine of 0.89 the onlymajor abnormality is her sodium is low at 129 and she has had some low sodium readings recently. * She states she is doing well. * NO issues. * Swelling is good. * Drinks 32 ounces of water, 1 pop and 12-16 ounces of coffee. * Sh eonly drinks when she is thirsty. [facility] 3 [facility] Work Phone: evaluation note* Diagnosis Multiple myeloma, remission status unspecified Neoplastic malignant related fatigue Other malaise and fatigue Body mass index (BMI) 30.0-30.9, adult [facility] Diagnosis Multiple myeloma, remission status unspecified [facility] Diagnosis Onset Date Resolution Status Encounter for chemotherapy management acute Multiple myeloma acute Encounter for chemotherapy management acute Multiple myeloma acute Encounter for chemotherapy management acute Multiple myeloma acute Encounter for chemotherapy management acute Multiple myeloma acute Neuropathy acute Encounter for chemotherapy management acute Multiple myeloma acute Encounter for chemotherapy management acute Multiple myeloma acute Encounter for chemotherapy management acute Multiple myeloma acute Encounter for chemotherapy management acute Multiple myeloma acute [facility] Work Phone: Evaluation note* Diagnosis Medicare annual wellness visit, initial- Primary HTN (hypertension), benign Essential hypertension, benign Multiple myeloma not having achieved remission (CMS/HCC) Gastroesophageal reflux disease without esophagitis Esophageal reflux Hypertriglyceridemia Pure hyperglyceridemia Prediabetes Other abnormal glucose Obesity (BMI 30.0-34.9) documented in this encounter [facility] Work Phone: Evaluation note* Diagnosis Spinal enthesopathy, lumbar region (CMS/HCC)- Primary HTN (hypertension), benign Essential hypertension, benign Gastroesophageal reflux disease without esophagitis Esophageal reflux Hypertriglyceridemia Pure hyperglyceridemia Obesity, morbid (CMS/HCC) Morbid obesity Prediabetes Other abnormal glucose Impacted cerumen of right ear Impacted cerumen documented in this encounter [facility] Work Phone: Evaluation note* Diagnosis HTN (hypertension), benign- Primary Essential hypertension, benign Multiple myeloma not having achieved remission (CMS/HCC) Spinal enthesopathy, lumbar region (CMS/HCC) Obesity, morbid (CMS/HCC) Morbid obesity Encounter for screening mammogram for malignant neoplasm of breast documented in this encounter [facility] Work Phone: Evaluation note* Diagnosis Onset Date Resolution Status Dehydration acute Encounter for chemotherapy management acute Multiple myeloma chronic Encounter for chemotherapy management acute Multiple myeloma chronic Multiple myeloma chronic Encounter for chemotherapy management acute Impacted cerumen of right ear acute Multiple myeloma chronic Multiple myeloma chronic Multiple myeloma chronic Multiple myeloma chronic Encounter for chemotherapy management acute Multiple myeloma chronic Multiple myeloma chronic Encounter for chemotherapy management acute Low back pain acute Multiple myeloma chronic Encounter for chemotherapy management acute Low back pain acute Multiple myeloma chronic Multiple myeloma chronic Multiple myeloma [facility] Work Phone: Evaluation note* Diagnosis Onset Date Resolution Status Multiple myeloma chronic Encounter for chemotherapy management acute Impacted cerumen of right ear acute Multiple myeloma chronic Multiple myeloma chronic Multiple myeloma chronic Multiple myeloma chronic Encounter for chemotherapy management acute Multiple myeloma chronic Multiple myeloma chronic Encounter for chemotherapy management acute Low back pain acute Multiple myeloma chronic Encounter for chemotherapy management acute Low back pain acute Multiple myeloma chronic Multiple myeloma chronic Multiple myeloma chronic Multiple myeloma chronic Multiple myeloma chronic [facility] Work Phone: Evaluation note* Diagnosis Pneumonia due to COVID-19 virus- Primary Peripheral edema Edema documented in this encounter [facility] Work Phone: Evaluation note* Diagnosis HTN (hypertension), benign- Primary Essential hypertension, benign Spinal enthesopathy, lumbar region ([facility]/HCC) Bilateral leg edema Edema documented in this encounter [facility] Work Phone: Evaluation note* Diagnosis Shortness of breath- Primary Leg edema Edema documented in this encounter [facility] Work Phone: [phone] note* Diagnosis Leg edema Edema documented in this encounter [facility] Work Phone: [phone] note* Diagnosis Leg edema Edema documented in this encounter [facility] Work Phone: [phone] note* Diagnosis Shortness of breath documented in this encounter [facility] Work Phone: [phone] note* Diagnosis Shortness of breath Cardiac murmur, unspecified documented in this encounter [facility] Work Phone: [phone] note* Diagnosis Coronary artery calcification- Primary documented in this encounter [facility] Work Phone: [phone] note* Diagnosis Medicare annual wellness visit, subsequent- Primary HTN (hypertension), benign Essential hypertension, benign Prediabetes Other abnormal glucose Hypertriglyceridemia Pure hyperglyceridemia documented in this encounter [facility] Work Phone: [phone] note* Diagnosis HTN (hypertension), benign- Primary Essential hypertension, benign Hypertriglyceridemia Pure hyperglyceridemia Hyperuricemia Other abnormal blood chemistry Bilateral leg edema Edema documented in this encounter [facility] Work Phone: Evaluation note* Diagnosis Multiple myeloma, remission status unspecified- Primary [facility] Diagnosis Multiple myeloma, remission status unspecified- Primary [facility] Diagnosis Medicare annual wellness visit, initial- Primary HTN (hypertension), benign Essential hypertension, benign Multiple myeloma not having achieved remission (Multi) Gastroesophageal reflux disease without esophagitis Esophageal reflux Hypertriglyceridemia Pure hyperglyceridemia Prediabetes Other abnormal glucose Obesity (BMI 30.0-34.9) Spinal enthesopathy, lumbar region- Primary HTN (hypertension), benign Essential hypertension, benign Gastroesophageal reflux disease without esophagitis Esophageal reflux Hypertriglyceridemia Pure hyperglyceridemia Obesity, morbid (Multi) Morbid obesity Prediabetes Other abnormal glucose Impacted cerumen of right ear Impacted cerumen HTN (hypertension), benign- Primary Essential hypertension, benign Multiple myeloma not having achieved remission (Multi) Spinal enthesopathy, lumbar region Obesity, morbid (Multi) Morbid obesity Encounter for screening mammogram for malignant neoplasm of breast HTN (hypertension), benign- Primary Essential hypertension, benign HTN (hypertension), benign- Primary Essential hypertension, benign Spinal enthesopathy, lumbar region Bilateral leg edema Edema Medicare annual wellness visit, subsequent- Primary HTN (hypertension), benign Essential hypertension, benign Prediabetes Other abnormal glucose Hypertriglyceridemia Pure hyperglyceridemia HTN (hypertension), benign- Primary Essential hypertension, benign Hypertriglyceridemia Pure hyperglyceridemia Hyperuricemia Other abnormal blood chemistry Bilateral leg edema Edema Bilateral hip pain- Primary Pain in joint, pelvic region and thigh Prediabetes- Primary Other abnormal glucose Hypertriglyceridemia Pure hyperglyceridemia HTN (hypertension), benign Essential hypertension, benign Gastroesophageal reflux disease without esophagitis Esophageal reflux documented in this encounter [facility] Work Phone: Evaluation note* Diagnosis Medicare annual wellness visit, initial- Primary HTN (hypertension), benign Essential hypertension, benign Multiple myeloma not having achieved remission (Multi) Gastroesophageal reflux disease without esophagitis Esophageal reflux Hypertriglyceridemia Pure hyperglyceridemia Prediabetes Other abnormal glucose Obesity (BMI 30.0-34.9) Spinal enthesopathy, lumbar region- Primary HTN (hypertension), benign Essential hypertension, benign Gastroesophageal reflux disease without esophagitis Esophageal reflux Hypertriglyceridemia Pure hyperglyceridemia Obesity, morbid (Multi) Morbid obesity Prediabetes Other abnormal glucose Impacted cerumen of right ear Impacted cerumen HTN (hypertension), benign- Primary Essential hypertension, benign Multiple myeloma not having achieved remission (Multi) Spinal enthesopathy, lumbar region Obesity, morbid (Multi) Morbid obesity Encounter for screening mammogram for malignant neoplasm of breast HTN (hypertension), benign- Primary Essential hypertension, benign HTN (hypertension), benign- Primary Essential hypertension, benign Spinal enthesopathy, lumbar region Bilateral leg edema Edema Medicare annual wellness visit, subsequent- Primary HTN (hypertension), benign Essential hypertension, benign Prediabetes Other abnormal glucose Hypertriglyceridemia Pure hyperglyceridemia HTN (hypertension), benign- Primary Essential hypertension, benign Hypertriglyceridemia Pure hyperglyceridemia Hyperuricemia Other abnormal blood chemistry Bilateral leg edema Edema Bilateral hip pain- Primary Pain in joint, pelvic region and thigh Prediabetes- Primary Other abnormal glucose Hypertriglyceridemia Pure hyperglyceridemia HTN (hypertension), benign Essential hypertension, benign Gastroesophageal reflux disease without esophagitis Esophageal reflux Left otitis media, unspecified otitis media type- Primary Upper respiratory tract infection, unspecified type documented in this encounter [facility] Work Phone: Evaluation note* Diagnosis Medicare annual wellness visit, initial- Primary HTN (hypertension), benign Essential hypertension, benign Multiple myeloma not having achieved remission (Multi) Gastroesophageal reflux disease without esophagitis Esophageal reflux Hypertriglyceridemia Pure hyperglyceridemia Prediabetes Other abnormal glucose Obesity (BMI 30.0-34.9) Spinal enthesopathy, lumbar region ([facility]-HCC)- Primary HTN (hypertension), benign Essential hypertension, benign Gastroesophageal reflux disease without esophagitis Esophageal reflux Hypertriglyceridemia Pure hyperglyceridemia Obesity, morbid (Multi) Morbid obesity Prediabetes Other abnormal glucose Impacted cerumen of right ear Impacted cerumen HTN (hypertension), benign- Primary Essential hypertension, benign Multiple myeloma not having achieved remission (Multi) Spinal enthesopathy, lumbar region ([facility]-HCC) Obesity, morbid (Multi) Morbid obesity Encounter for screening mammogram for malignant neoplasm of breast HTN (hypertension), benign- Primary Essential hypertension, benign HTN (hypertension), benign- Primary Essential hypertension, benign Spinal enthesopathy, lumbar region ([facility]-HCC) Bilateral leg edema Edema Medicare annual wellness visit, subsequent- Primary HTN (hypertension), benign Essential hypertension, benign Prediabetes Other abnormal glucose Hypertriglyceridemia Pure hyperglyceridemia HTN (hypertension), benign- Primary Essential hypertension, benign Hypertriglyceridemia Pure hyperglyceridemia Hyperuricemia Other abnormal blood chemistry Bilateral leg edema Edema Bilateral hip pain- Primary Pain in joint, pelvic region and thigh documented in this encounter [facility] Work Phone: Evaluation note* Diagnosis Medicare annual wellness visit, initial- Primary HTN (hypertension), benign Essential hypertension, benign Multiple myeloma not having achieved remission (Multi) Gastroesophageal reflux disease without esophagitis Esophageal reflux Hypertriglyceridemia Pure hyperglyceridemia Prediabetes Other abnormal glucose Obesity (BMI 30.0-34.9) Spinal enthesopathy, lumbar region ([facility]-HCC)- Primary HTN (hypertension), benign Essential hypertension, benign Gastroesophageal reflux disease without esophagitis Esophageal reflux Hypertriglyceridemia Pure hyperglyceridemia Obesity, morbid (Multi) Morbid obesity Prediabetes Other abnormal glucose Impacted cerumen of right ear Impacted cerumen HTN (hypertension), benign- Primary Essential hypertension, benign Multiple myeloma not having achieved remission (Multi) Spinal enthesopathy, lumbar region ([facility]-HCC) Obesity, morbid (Multi) Morbid obesity Encounter for screening mammogram for malignant neoplasm of breast HTN (hypertension), benign- Primary Essential hypertension, benign HTN (hypertension), benign- Primary Essential hypertension, benign Spinal enthesopathy, lumbar region ([facility]) Bilateral leg edema Edema Medicare annual wellness visit, subsequent- Primary HTN (hypertension), benign Essential hypertension, benign Prediabetes Other abnormal glucose Hypertriglyceridemia Pure hyperglyceridemia HTN (hypertension), benign- Primary Essential hypertension, benign Hypertriglyceridemia Pure hyperglyceridemia Hyperuricemia Other abnormal blood chemistry Bilateral leg edema Edema Bilateral hip pain- Primary Pain in joint, pelvic region and thigh Bilateral hip pain Pain in joint, pelvic region and thigh documented in this encounter [facility] Work Phone: Evaluation note* Diagnosis Medicare annual wellness visit, initial- Primary HTN (hypertension), benign Essential hypertension, benign Multiple myeloma not having achieved remission (Multi) Gastroesophageal reflux disease without esophagitis Esophageal reflux Hypertriglyceridemia Pure hyperglyceridemia Prediabetes Other abnormal glucose Obesity (BMI 30.0-34.9) Spinal enthesopathy, lumbar region- Primary HTN (hypertension), benign Essential hypertension, benign Gastroesophageal reflux disease without esophagitis Esophageal reflux Hypertriglyceridemia Pure hyperglyceridemia Obesity, morbid (Multi) Morbid obesity Prediabetes Other abnormal glucose Impacted cerumen of right ear Impacted cerumen HTN (hypertension), benign- Primary Essential hypertension, benign Multiple myeloma not having achieved remission (Multi) Spinal enthesopathy, lumbar region Obesity, morbid (Multi) Morbid obesity Encounter for screening mammogram for malignant neoplasm of breast HTN (hypertension), benign- Primary Essential hypertension, benign HTN (hypertension), benign- Primary Essential hypertension, benign Spinal enthesopathy, lumbar region Bilateral leg edema Edema Medicare annual wellness visit, subsequent- Primary HTN (hypertension), benign Essential hypertension, benign Prediabetes Other abnormal glucose Hypertriglyceridemia Pure hyperglyceridemia HTN (hypertension), benign- Primary Essential hypertension, benign Hypertriglyceridemia Pure hyperglyceridemia Hyperuricemia Other abnormal blood chemistry Bilateral leg edema Edema Bilateral hip pain- Primary Pain in joint, pelvic region and thigh Prediabetes- Primary Other abnormal glucose Hypertriglyceridemia Pure hyperglyceridemia HTN (hypertension), benign Essential hypertension, benign Gastroesophageal reflux disease without esophagitis Esophageal reflux Influenza A- Primary Influenza with other respiratory manifestations Acute cough documented in this encounter [facility] Work Phone: Evaluation note* Diagnosis Medicare annual wellness visit, initial- Primary HTN (hypertension), benign Essential hypertension, benign Multiple myeloma not having achieved remission (Multi) Gastroesophageal reflux disease without esophagitis Esophageal reflux Hypertriglyceridemia Pure hyperglyceridemia Prediabetes Other abnormal glucose Obesity (BMI 30.0-34.9) Spinal enthesopathy, lumbar region- Primary HTN (hypertension), benign Essential hypertension, benign Gastroesophageal reflux disease without esophagitis Esophageal reflux Hypertriglyceridemia Pure hyperglyceridemia Obesity, morbid (Multi) Morbid obesity Prediabetes Other abnormal glucose Impacted cerumen of right ear Impacted cerumen HTN (hypertension), benign- Primary Essential hypertension, benign Multiple myeloma not having achieved remission (Multi) Spinal enthesopathy, lumbar region Obesity, morbid (Multi) Morbid obesity Encounter for screening mammogram for malignant neoplasm of breast HTN (hypertension), benign- Primary Essential hypertension, benign HTN (hypertension), benign- Primary Essential hypertension, benign Spinal enthesopathy, lumbar region Bilateral leg edema Edema Medicare annual wellness visit, subsequent- Primary HTN (hypertension), benign Essential hypertension, benign Prediabetes Other abnormal glucose Hypertriglyceridemia Pure hyperglyceridemia HTN (hypertension), benign- Primary Essential hypertension, benign Hypertriglyceridemia Pure hyperglyceridemia Hyperuricemia Other abnormal blood chemistry Bilateral leg edema Edema Bilateral hip pain- Primary Pain in joint, pelvic region and thigh Prediabetes- Primary Other abnormal glucose Hypertriglyceridemia Pure hyperglyceridemia HTN (hypertension), benign Essential hypertension, benign Gastroesophageal reflux disease without esophagitis Esophageal reflux Influenza A- Primary Influenza with other respiratory manifestations Multiple myeloma in relapse (Multi) Multiple myeloma, in relapse Acute cough Encounter for screening mammogram for malignant neoplasm of breast Anxiety Anxiety state, unspecified documented in this encounter [facility] Work Phone: Evaluation note* Diagnosis Sore throat- Primary Acute pharyngitis Acute cough [facility] Medicare annual wellness visit, initial- Primary HTN (hypertension), benign Essential hypertension, benign Multiple myeloma not having achieved remission (Multi) Gastroesophageal reflux disease without esophagitis Esophageal reflux Hypertriglyceridemia Pure hyperglyceridemia Prediabetes Other abnormal glucose Obesity (BMI 30.0-34.9) Spinal enthesopathy, lumbar region- Primary HTN (hypertension), benign Essential hypertension, benign Gastroesophageal reflux disease without esophagitis Esophageal reflux Hypertriglyceridemia Pure hyperglyceridemia Obesity, morbid (Multi) Morbid obesity Prediabetes Other abnormal glucose Impacted cerumen of right ear Impacted cerumen HTN (hypertension), benign- Primary Essential hypertension, benign Multiple myeloma not having achieved remission (Multi) Spinal enthesopathy, lumbar region Obesity, morbid (Multi) Morbid obesity Encounter for screening mammogram for malignant neoplasm of breast HTN (hypertension), benign- Primary Essential hypertension, benign HTN (hypertension), benign- Primary Essential hypertension, benign Spinal enthesopathy, lumbar region Bilateral leg edema Edema Medicare annual wellness visit, subsequent- Primary HTN (hypertension), benign Essential hypertension, benign Prediabetes Other abnormal glucose Hypertriglyceridemia Pure hyperglyceridemia HTN (hypertension), benign- Primary Essential hypertension, benign Hypertriglyceridemia Pure hyperglyceridemia Hyperuricemia Other abnormal blood chemistry Bilateral leg edema Edema Bilateral hip pain- Primary Pain in joint, pelvic region and thigh Prediabetes- Primary Other abnormal glucose Hypertriglyceridemia Pure hyperglyceridemia HTN (hypertension), benign Essential hypertension, benign Gastroesophageal reflux disease without esophagitis Esophageal reflux Influenza A- Primary Influenza with other respiratory manifestations Multiple myeloma in relapse (Multi) Multiple myeloma, in relapse Acute cough Encounter for screening mammogram for malignant neoplasm of breast Anxiety Anxiety state, unspecified Community acquired pneumonia, unspecified laterality- Primary documented in this encounter [facility] Work Phone: Evaluation note* Diagnosis Medicare annual wellness visit, initial- Primary HTN (hypertension), benign Essential hypertension, benign Multiple myeloma not having achieved remission (Multi) Gastroesophageal reflux disease without esophagitis Esophageal reflux Hypertriglyceridemia Pure hyperglyceridemia Prediabetes Other abnormal glucose Obesity (BMI 30.0-34.9) Spinal enthesopathy, lumbar region- Primary HTN (hypertension), benign Essential hypertension, benign Gastroesophageal reflux disease without esophagitis Esophageal reflux Hypertriglyceridemia Pure hyperglyceridemia Obesity, morbid (Multi) Morbid obesity Prediabetes Other abnormal glucose Impacted cerumen of right ear Impacted cerumen HTN (hypertension), benign- Primary Essential hypertension, benign Multiple myeloma not having achieved remission (Multi) Spinal enthesopathy, lumbar region Obesity, morbid (Multi) Morbid obesity Encounter for screening mammogram for malignant neoplasm of breast HTN (hypertension), benign- Primary Essential hypertension, benign HTN (hypertension), benign- Primary Essential hypertension, benign Spinal enthesopathy, lumbar region Bilateral leg edema Edema Medicare annual wellness visit, subsequent- Primary HTN (hypertension), benign Essential hypertension, benign Prediabetes Other abnormal glucose Hypertriglyceridemia Pure hyperglyceridemia HTN (hypertension), benign- Primary Essential hypertension, benign Hypertriglyceridemia Pure hyperglyceridemia Hyperuricemia Other abnormal blood chemistry Bilateral leg edema Edema Bilateral hip pain- Primary Pain in joint, pelvic region and thigh Prediabetes- Primary Other abnormal glucose Hypertriglyceridemia Pure hyperglyceridemia HTN (hypertension), benign Essential hypertension, benign Gastroesophageal reflux disease without esophagitis Esophageal reflux Influenza A- Primary Influenza with other respiratory manifestations Multiple myeloma in relapse (Multi) Multiple myeloma, in relapse Acute cough Encounter for screening mammogram for malignant neoplasm of breast Anxiety Anxiety state, unspecified Community acquired pneumonia, unspecified laterality- Primary Community acquired pneumonia, unspecified laterality documented in this encounter [facility] Work Phone: Evaluation note* Diagnosis Medicare annual wellness visit, initial- Primary HTN (hypertension), benign Essential hypertension, benign Multiple myeloma not having achieved remission (Multi) Gastroesophageal reflux disease without esophagitis Esophageal reflux Hypertriglyceridemia Pure hyperglyceridemia Prediabetes Other abnormal glucose Obesity (BMI 30.0-34.9) Spinal enthesopathy, lumbar region- Primary HTN (hypertension), benign Essential hypertension, benign Gastroesophageal reflux disease without esophagitis Esophageal reflux Hypertriglyceridemia Pure hyperglyceridemia Obesity, morbid (Multi) Morbid obesity Prediabetes Other abnormal glucose Impacted cerumen of right ear Impacted cerumen HTN (hypertension), benign- Primary Essential hypertension, benign Multiple myeloma not having achieved remission (Multi) Spinal enthesopathy, lumbar region Obesity, morbid (Multi) Morbid obesity Encounter for screening mammogram for malignant neoplasm of breast HTN (hypertension), benign- Primary Essential hypertension, benign HTN (hypertension), benign- Primary Essential hypertension, benign Spinal enthesopathy, lumbar region Bilateral leg edema Edema Medicare annual wellness visit, subsequent- Primary HTN (hypertension), benign Essential hypertension, benign Prediabetes Other abnormal glucose Hypertriglyceridemia Pure hyperglyceridemia HTN (hypertension), benign- Primary Essential hypertension, benign Hypertriglyceridemia Pure hyperglyceridemia Hyperuricemia Other abnormal blood chemistry Bilateral leg edema Edema Bilateral hip pain- Primary Pain in joint, pelvic region and thigh Prediabetes- Primary Other abnormal glucose Hypertriglyceridemia Pure hyperglyceridemia HTN (hypertension), benign Essential hypertension, benign Gastroesophageal reflux disease without esophagitis Esophageal reflux Influenza A- Primary Influenza with other respiratory manifestations Multiple myeloma in relapse (Multi) Multiple myeloma, in relapse Acute cough Encounter for screening mammogram for malignant neoplasm of breast Anxiety Anxiety state, unspecified Community acquired pneumonia, unspecified laterality- Primary Community acquired pneumonia of left lower lobe of lung- Primary documented in this encounter [facility] Work Phone: Evaluation note* Diagnosis Medicare annual wellness visit, initial- Primary HTN (hypertension), benign Essential hypertension, benign Multiple myeloma not having achieved remission (Multi) Gastroesophageal reflux disease without esophagitis Esophageal reflux Hypertriglyceridemia Pure hyperglyceridemia Prediabetes Other abnormal glucose Obesity (BMI 30.0-34.9) Spinal enthesopathy, lumbar region- Primary HTN (hypertension), benign Essential hypertension, benign Gastroesophageal reflux disease without esophagitis Esophageal reflux Hypertriglyceridemia Pure hyperglyceridemia Obesity, morbid (Multi) Morbid obesity Prediabetes Other abnormal glucose Impacted cerumen of right ear Impacted cerumen HTN (hypertension), benign- Primary Essential hypertension, benign Multiple myeloma not having achieved remission (Multi) Spinal enthesopathy, lumbar region Obesity, morbid (Multi) Morbid obesity Encounter for screening mammogram for malignant neoplasm of breast HTN (hypertension), benign- Primary Essential hypertension, benign HTN (hypertension), benign- Primary Essential hypertension, benign Spinal enthesopathy, lumbar region Bilateral leg edema Edema Medicare annual wellness visit, subsequent- Primary HTN (hypertension), benign Essential hypertension, benign Prediabetes Other abnormal glucose Hypertriglyceridemia Pure hyperglyceridemia HTN (hypertension), benign- Primary Essential hypertension, benign Hypertriglyceridemia Pure hyperglyceridemia Hyperuricemia Other abnormal blood chemistry Bilateral leg edema Edema Bilateral hip pain- Primary Pain in joint, pelvic region and thigh Prediabetes- Primary Other abnormal glucose Hypertriglyceridemia Pure hyperglyceridemia HTN (hypertension), benign Essential hypertension, benign Gastroesophageal reflux disease without esophagitis Esophageal reflux Influenza A- Primary Influenza with other respiratory manifestations Multiple myeloma in relapse (Multi) Multiple myeloma, in relapse Acute cough Encounter for screening mammogram for malignant neoplasm of breast Anxiety Anxiety state, unspecified Community acquired pneumonia, unspecified laterality- Primary Community acquired pneumonia of left lower lobe of lung- Primary Community acquired pneumonia of left lower lobe of lung documented in this encounter [facility] Work Phone: Evaluation note* Diagnosis Medicare annual wellness visit, initial- Primary HTN (hypertension), benign Essential hypertension, benign Multiple myeloma not having achieved remission (Multi) Gastroesophageal reflux disease without esophagitis Esophageal reflux Hypertriglyceridemia Pure hyperglyceridemia Prediabetes Other abnormal glucose Obesity (BMI 30.0-34.9) Spinal enthesopathy, lumbar region- Primary HTN (hypertension), benign Essential hypertension, benign Gastroesophageal reflux disease without esophagitis Esophageal reflux Hypertriglyceridemia Pure hyperglyceridemia Obesity, morbid (Multi) Morbid obesity Prediabetes Other abnormal glucose Impacted cerumen of right ear Impacted cerumen HTN (hypertension), benign- Primary Essential hypertension, benign Multiple myeloma not having achieved remission (Multi) Spinal enthesopathy, lumbar region Obesity, morbid (Multi) Morbid obesity Encounter for screening mammogram for malignant neoplasm of breast HTN (hypertension), benign- Primary Essential hypertension, benign HTN (hypertension), benign- Primary Essential hypertension, benign Spinal enthesopathy, lumbar region Bilateral leg edema Edema Medicare annual wellness visit, subsequent- Primary HTN (hypertension), benign Essential hypertension, benign Prediabetes Other abnormal glucose Hypertriglyceridemia Pure hyperglyceridemia HTN (hypertension), benign- Primary Essential hypertension, benign Hypertriglyceridemia Pure hyperglyceridemia Hyperuricemia Other abnormal blood chemistry Bilateral leg edema Edema Bilateral hip pain- Primary Pain in joint, pelvic region and thigh Prediabetes- Primary Other abnormal glucose Hypertriglyceridemia Pure hyperglyceridemia HTN (hypertension), benign Essential hypertension, benign Gastroesophageal reflux disease without esophagitis Esophageal reflux Influenza A- Primary Influenza with other respiratory manifestations Multiple myeloma in relapse (Multi) Multiple myeloma, in relapse Acute cough Encounter for screening mammogram for malignant neoplasm of breast Anxiety Anxiety state, unspecified Community acquired pneumonia, unspecified laterality- Primary Community acquired pneumonia of left lower lobe of lung- Primary Acute bacterial sinusitis- Primary Acute sinusitis, unspecified documented in this encounter [facility] Work Phone: Evaluation note* Diagnosis Medicare annual wellness visit, initial- Primary HTN (hypertension), benign Essential hypertension, benign Multiple myeloma not having achieved remission (Multi) Gastroesophageal reflux disease without esophagitis Esophageal reflux Hypertriglyceridemia Pure hyperglyceridemia Prediabetes Other abnormal glucose Obesity (BMI 30.0-34.9) Spinal enthesopathy, lumbar region- Primary HTN (hypertension), benign Essential hypertension, benign Gastroesophageal reflux disease without esophagitis Esophageal reflux Hypertriglyceridemia Pure hyperglyceridemia Obesity, morbid (Multi) Morbid obesity Prediabetes Other abnormal glucose Impacted cerumen of right ear Impacted cerumen HTN (hypertension), benign- Primary Essential hypertension, benign Multiple myeloma not having achieved remission (Multi) Spinal enthesopathy, lumbar region Obesity, morbid (Multi) Morbid obesity Encounter for screening mammogram for malignant neoplasm of breast HTN (hypertension), benign- Primary Essential hypertension, benign HTN (hypertension), benign- Primary Essential hypertension, benign Spinal enthesopathy, lumbar region Bilateral leg edema Edema Medicare annual wellness visit, subsequent- Primary HTN (hypertension), benign Essential hypertension, benign Prediabetes Other abnormal glucose Hypertriglyceridemia Pure hyperglyceridemia HTN (hypertension), benign- Primary Essential hypertension, benign Hypertriglyceridemia Pure hyperglyceridemia Hyperuricemia Other abnormal blood chemistry Bilateral leg edema Edema Bilateral hip pain- Primary Pain in joint, pelvic region and thigh Prediabetes- Primary Other abnormal glucose Hypertriglyceridemia Pure hyperglyceridemia HTN (hypertension), benign Essential hypertension, benign Gastroesophageal reflux disease without esophagitis Esophageal reflux Influenza A- Primary Influenza with other respiratory manifestations Multiple myeloma in relapse (Multi) Multiple myeloma, in relapse Acute cough Encounter for screening mammogram for malignant neoplasm of breast Anxiety Anxiety state, unspecified Community acquired pneumonia, unspecified laterality- Primary Community acquired pneumonia of left lower lobe of lung- Primary Coronary artery calcification- Primary Shortness of breath Cardiac murmur, unspecified Leg edema Edema documented in this encounter [facility] Work Phone: Evaluation note* Diagnosis Medicare annual wellness visit, initial- Primary HTN (hypertension), benign Essential hypertension, benign Multiple myeloma not having achieved remission (Multi) Gastroesophageal reflux disease without esophagitis Esophageal reflux Hypertriglyceridemia Pure hyperglyceridemia Prediabetes Other abnormal glucose Obesity (BMI 30.0-34.9) Spinal enthesopathy, lumbar region- Primary HTN (hypertension), benign Essential hypertension, benign Gastroesophageal reflux disease without esophagitis Esophageal reflux Hypertriglyceridemia Pure hyperglyceridemia Obesity, morbid (Multi) Morbid obesity Prediabetes Other abnormal glucose Impacted cerumen of right ear Impacted cerumen HTN (hypertension), benign- Primary Essential hypertension, benign Multiple myeloma not having achieved remission (Multi) Spinal enthesopathy, lumbar region Obesity, morbid (Multi) Morbid obesity Encounter for screening mammogram for malignant neoplasm of breast HTN (hypertension), benign- Primary Essential hypertension, benign HTN (hypertension), benign- Primary Essential hypertension, benign Spinal enthesopathy, lumbar region Bilateral leg edema Edema Medicare annual wellness visit, subsequent- Primary HTN (hypertension), benign Essential hypertension, benign Prediabetes Other abnormal glucose Hypertriglyceridemia Pure hyperglyceridemia HTN (hypertension), benign- Primary Essential hypertension, benign Hypertriglyceridemia Pure hyperglyceridemia Hyperuricemia Other abnormal blood chemistry Bilateral leg edema Edema Bilateral hip pain- Primary Pain in joint, pelvic region and thigh Prediabetes- Primary Other abnormal glucose Hypertriglyceridemia Pure hyperglyceridemia HTN (hypertension), benign Essential hypertension, benign Gastroesophageal reflux disease without esophagitis Esophageal reflux Influenza A- Primary Influenza with other respiratory manifestations Multiple myeloma in relapse (Multi) Multiple myeloma, in relapse Acute cough Encounter for screening mammogram for malignant neoplasm of breast Anxiety Anxiety state, unspecified Medicare annual wellness visit, subsequent- Primary Gastroesophageal reflux disease without esophagitis Esophageal reflux HTN (hypertension), benign Essential hypertension, benign Prediabetes Other abnormal glucose Hypertriglyceridemia Pure hyperglyceridemia Multiple myeloma not having achieved remission (Multi) Pelvic floor dysfunction in female Obesity (BMI 30.0-34.9) HTN (hypertension), benign- Primary Essential hypertension, benign Bilateral leg edema Edema Hyperuricemia Other abnormal blood chemistry documented in this encounter [facility] Work Phone: Evaluation note* Diagnosis Multiple myeloma, remission status unspecified- [facility] Medicare annual wellness visit, initial- Primary HTN (hypertension), benign Essential hypertension, benign Multiple myeloma not having achieved remission (Multi) Gastroesophageal reflux disease without esophagitis Esophageal reflux Hypertriglyceridemia Pure hyperglyceridemia Prediabetes Other abnormal glucose Obesity (BMI 30.0-34.9) Spinal enthesopathy, lumbar region- Primary HTN (hypertension), benign Essential hypertension, benign Gastroesophageal reflux disease without esophagitis Esophageal reflux Hypertriglyceridemia Pure hyperglyceridemia Obesity, morbid (Multi) Morbid obesity Prediabetes Other abnormal glucose Impacted cerumen of right ear Impacted cerumen HTN (hypertension), benign- Primary Essential hypertension, benign Multiple myeloma not having achieved remission (Multi) Spinal enthesopathy, lumbar region Obesity, morbid (Multi) Morbid obesity Encounter for screening mammogram for malignant neoplasm of breast HTN (hypertension), benign- Primary Essential hypertension, benign HTN (hypertension), benign- Primary Essential hypertension, benign Spinal enthesopathy, lumbar region Bilateral leg edema Edema Medicare annual wellness visit, subsequent- Primary HTN (hypertension), benign Essential hypertension, benign Prediabetes Other abnormal glucose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 [facility] Work Phone: History of Present illness Narrative* Added tricep ext to increase upper arm strength as pt reports difficulty pushing to get out of bed.Pt reports stretch sensation at end range R GH PROM scaption/flexion, denies pain. Cont progressingROM/strengthening as lorena for increased ease lifting casserole dishes out of oven. * Response to treatment: no change in pain. [facility] Work Phone: History of Present illness NarrativePatient identified by name and date of . Patient required cues to slow down with exercises throughout treatment She demonstrated fair tolerance to progression of strengthening. She reported increased Sx with bwd UBE. She presented with palpable tension in R UT that responded well to STW and addition of UT stretch. [facility] Work Phone: History of Present illness [...] to treatment: no change in pain. [facility] Work Phone: Hospital Discharge instructions* Attachments The following attachments cannot be sent through Care Everywhere. * Flu, Adult ED (Prydeinig) [facility]: Hospital Discharge instructionsAmbulatory Orders* Neurology Location: None Selected [facility] Work Phone: Hospital Discharge instructionsAmbulatory Orders* Prior Authorization Referral - ONC/HEM Location: None Selected [facility] Work Phone: Instructions* Attachments The following attachments cannot be sent through Care Everywhere. * Cough (Prydeinig) [facility] note Author Yusuf Leyva [facility] Services Note Date/Time October 23, 2024 3:33p m [facility] [place] [address] OFFICE VISIT Date of Service: 10/23/24 1512 MR#: [id number] Acct: [id number] Name: LAURI READ Rep #: [id number] : 1950 From: Yusuf hunter MD Age/Sex: 74/F [place] [facility] [place]: Signed HPI Subjective Date of Service 10/23/24 Chief Complaint Multiple myeloma on treatment History of Present Illness 73-year-old female with a past medical history notable for hypertension, cerebrovascular disease, degenerative joint disease, obesity, GERD, hyperglycemia and bilateral breast cancers (2015, DCIS, status postlumpectomy and radiation no hormonal therapies. 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 That prompted a work-up for an occult malignancy that revealed that the patient had multiple myeloma. Her initial work-up was done at [facility] in [place]. She was advised quadruple therapy followed by high-dose chemotherapy and stem cell transplant. She felt too nervous about the aggressiveness of this approach. She then went to [facility] and was seen by Dr. Barakat for a second opinion where she wasadvised modified VRd(lite), for remission induction to be reevaluated for high-dose chemotherapy with melphalan followed by autologous stem cell transplant depending on her response. She requested care closer to her home town, [place], but within the [facility] network and was therefore referred to [facility] and she was first seen on June 02, 2021.. Her work-up included: Bone marrow aspirate and biopsy April 2021: Bone marrow involvement with plasma cell myeloma with 60 to 70% plasma cells. Cytogenetics 46XX. FISH positive for gain of 1q and hyperploidy of chromosome 3. Negative for hyperploidy of chromosome 7 and 11 and deletion of TP 53. PET/CT April 2021 showed a mildly hypermetabolic lytic lesion in the posterior aspect of L4. Diffuse metabolic activity of the remaining osseous structures consistent with involvement by myeloma and a discrete focal metabolicactivity in the cecum and sigmoid colon. Colonoscopy May 2021 to clarify abnormal PET: Sigmoid diverticulosis, otherwise no abnormalities and no specimen collected. Serum protein electrophoresis with immune fixation revealing a monoclonal IgG kappa of 2.6 g per DL March 2021. Urinalysis was positive for protein, 24-hour urine protein was 186 mg April 2021. Beta-2 microglobulin 3.May. Serologic tests for hepatitis B and C were negative. A normocytic anemia with a hemoglobin of 10.9, WBC 3.4, absolute neutrophil count of 1.34 and platelet count of 289, May 2021. Iron profile showed an iron saturation of 17%, elevated TIBC and elevated serum ferritin May 2021. Creatinine 0.9, normal calcium May 2021. Uric acid was elevated at 12.3, March 2021 and she was placed on allopurinol then. Treatment summary and response: * Modified VRd June 16-, February 16 2022 CR Declined myelo ablative melphalan with autologous stem cell transplantation. * Maintenance Velcade dexamethasone March 022021-December 2022 (Velcade day 1 and 15 of a 28-day cycle and dexamethasone 20 mg day 1 and 15 of each cycle); patient initially was not compliant with prescription instructions but reported better compliance in April 2022 when her M protein relapsed * Velcade dexamethasone (3 weeks on 1 week rest of a 28-day cycle with dexamethasone 40 mg weekly with Velcade) January 14, 2023- OK * VRd resumed April?September 2023 (Velcade ;3 weeks on 1 week rest ; dexamethasone 40 mg weekly and lenalidomide/Revlimid 25 Mg days 1-14; cycle length 28 days) deeper OK then patient requested a break from therapy due to side effects. * October ?January holiday from treatment requested by patient. * February 07, 2024?August 28, 2024 and low-dose dexamethasone (20 mg on day 1 and omitting day 2 as decided on by patient), OK then subtle progression * September 2024 DRd (daratumumab, Revlimid, dexamethasone. Interval History Day 22 toxicity check [facility] Medical History Encounter for monoclonal antibody treatment for malignancy Hypokalemia Low back pain Impacted cerumen of right ear Dehydration Tenderness of back Neuropathy Dermatitis Tooth pain Encounter for chemotherapy management Iron deficiency Anemia in chronic illness Left hip pain Encounter for education Degenerative joint disease Breast cancer Multiple myeloma Hyperuricemia Carotid stenosis Hyperglycemia Carpal tunnel syndrome GERD (gastroesophageal reflux disease) Granuloma annulare COVID-19 Benign hypertension Surgical History History of cataract extraction History of lumpectomy of both breasts History of left breast biopsy History of lymph node biopsy History of cervical polypectomy History of tubal ligation History of right breast biopsy History of cholecystectomy Hx of tonsillectomy Family History Father Lung cancer Smoker Brother , passed at 6 months of age Aplastic anemia Social History household members: spouse Smoking Status: Never smoker alcohol intake: never substance use type: does not use caffeine: Yes Type: coffee Number of servings: 1 ROS Constitutional Constitutional: Reports systems reviewed and no addt'l complaints, except as documented; Denies fatigue, fever(s), night sweats or weight loss Eyes Eyes: Reports systems reviewed and no addt'l complaints, except as documented; Denies change in vision ENT HEENT: Reports systems reviewed and no addt'l complaints, except as documented, headache(s), hearing loss, nasal discharge and sinus pressure; Denies mouth lesions Cardiovascular Cardiovascular: Reports systems reviewed and no addt'l complaints, except as documented and edema; Denies chest pain with activity Respiratory/Chest Respiratory/Chest: Reports systems reviewed and no addt'l complaints, except as documented and dyspnea on exertion; Denies wheezing Gastrointestinal Gastrointestinal: Reports systems reviewed and no addt'l complaints, except as documented, diarrhea, dyspepsia and other Details: Had a bout of diarrhea, resolved ; Denies abdominal pain, anorexia, dysphagia, heartburn, hematochezia, melena, nausea or vomiting Genitourinary Genitourinary: Reports systems reviewed and no addt'l complaints, except as documented; Denies dysuria or hematuria Musculoskeletal Musculoskeletal: Reports systems reviewed and no addt'l complaints, except as documented, arthralgias and back pain; Denies joint pain Integumentary Integumentary: Reports systems reviewed and no addt'l complaints, except as documented, new lesions, rash and other Details: Granuloma annulare manageable with topical steroids on a as needed basis. End of August 2024 broke out with shingles again under the right breast. Neurologic Neurologic: Reports systems reviewed and no addt'l complaints, except as documented; Denies focal weakness or paresthesias Psychiatric Psychiatric: Reports systems reviewed and no addt'l complaints, except as documented Endocrine Endocrinology: Reports systems reviewed and no addt'l complaints, except as documented Hematologic/Lymphatic Hematologic/Lymphatic: Reports systems reviewed and no addt'l complaints, exceptas documented; Denies easy bleeding, easy bruising or lymphadenopathy Allergic/Immunologic Allergic/Immunologic: Reports systems reviewed and no addt'l complaints, except as documented Intake Vital Signs 10/02/24 08:05 10/23/24 15:14 Height 4 ft 9 in 4 ft 9 in Weight: 67.755 kg BMI 32.3 BP 156/77 H Blood Pressure Location Lt brachial Position Sitting Respiration 16 Pulse 72 Pulse Source Monitor Temp 98.8 F Temperature Source Temporal Artery Pulse Oximetry (%) 92 Oxygen Delivery Method room air Intake Is patient in pain?: No Allergies No Known Allergies Allergy (Verified 10/23/24 15:16) Medications ?Medication ?Instructions ?Recorded ?Confirmed ?Type allopurinol 100 mg tablet 100 mg PO DAILY 06/02/2108/14 History furosemide 40 mg tablet 40 mg PO DAILY 06/02/2108/14 History potassium citrate 10 mEq (1,080 40 meq PO DAILY 10/23/24 History mg) tablet,extended release [place] [employer] Pro DHA [place]-3 1 cap PO DAILY 2 10/23/24 History Osteoprime Ultra 2 tab PO BID 07/14/21 History Ten Mushroom 2 cap PO BID 07/14/21 History aspirin 81 mg tablet,delayed 81 mg PO DAILY 08/04/21 0 10/23/24 History release (Adult Low Dose Aspirin) Disability Placard #1 ea 12/15/21 10/23/24 Rx Euromedica Nerve Complex 1 cap PO BID 06/22/22 History valsartan 40 mg tablet 40 mg PO DAILY 07/19/2308/14 History dexamethasone 4 mg tablet 20 mg (5 x 4 mg) PO QDAY #10 0 tabs 01/26/24 10/23/24 Rx acyclovir 400 mg tablet 400 mg PO BID 30 days #60 ta bs 02/02/24 10/23/24 Rx famotidine 20 mg tablet (Pepcid) 20 mg PO DAILY #30 ta bs 02/02/24 10/23/24 Rx Kidney Aid PO 02/21/24 10/23/24 History NAC PO 02/21/24 10/23/24 History alpha lipoic acid 125 mg-biotin 95 cap PO 02/21/2408/14 History mcg-berberine 250 mg capsule cholecalciferol (vitamin D3) 125 125 mcg PO QDAY 02/2010/23/24 History mcg (5,000 unit) capsule Paur'de'arc PO 03/20/24 10/23/24 History naproxen 500 mg tablet 500 mg PO BID 03/27/2410/23 History potassium chloride 20 mEq 40 meq (2 x 20 mEq) PO DAILY #6 06/05/24 10/23/24 Rx tablet,extended release(part/cryst) tabs spirolena PO 08/28/24 10/23/24 History nifedipine 60 mg tablet,extended 30 mg PO DAILY 10/23/24 History release Have you fallen in the past year?: No October 23, 2024 keshawn ANC 1.1 Exam Physical Exam Narrative ECOG 1 Const alert, oriented x3 and no apparent distress Coding Level of Care Code Off vis,est,level 3 Exam Problem Focused Diagnoses Multiple myeloma, remission status unspecified C90.00 Multiple myeloma remission status: unspecified Herpes zoster without complication B02.9 Herpes zoster complications: without complications Assessment and Plan Assessment and Plan (1) Multiple myeloma: Status: Chronic Qualifiers: Multiple myeloma remission status: unspecified Qualified Code(s): C90.00 - Multiple myeloma not having achieved remission (2) Shingles: Status: Resolved Qualifiers: Herpes zoster complications: without complications Qualified Code(s): B02.9 - Zoster without complications Plan 74-year-old female with IgG kappa multiple myeloma Durie Shokan stage IIA, R- ISSstage 2,? 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 Initial work-up was done at [facility], patient was seen in second opinion at [facility] by Dr. Barakat. Patient requested care within the OS network at [facility] closer to home. #1 started modified VRd June 16, 2021.? Followings 2 cycle she had more than 50% drop in her M protein consistent with partial remission of her disease and treatment was tolerated without any grade 3 or 4 toxicities or delays. By December 2021 after 12 cycles M protein was no longer detectable. She declined high-dose melphalan with autologous stem cell transplant at [facility] #2 started March 02, 2022 maintenance Velcade 1.3 Mg per metered square subcu days 1 and 15, with low dose weekly dexamethasone at a reduced dose of 20 mg also on the days 1 and 15. Was not compliant with dexamethasone until April 27, 2022 when her M protein was detected again on SPEP (but too small to quantify). She has an early asymptomatic relapse of her myeloma (M protein riseof 500 Mg per DL from keshawn), agreed to resume standard schedule of Velcade dexamethasone (3 weeks on 1 week rest 28-day cycles) December 2022. She remained in partial remission but not as deep as when she was on triple therapy. #3 elected to resume VRd starting April and M protein did trend down into a partial remission. However patient requested a break from therapy starting October 2023 due to troubling side effects (diarrhea, neuropathy, lower extremities edema, irritability and lack of sleep on days of steroids). As expected, her disease relapsed, though she remained symptom free. #4 daratumumab subcutaneously with dexamethasone (she decided to take dexamethasone 20 Mg day 1) January?August 2024: OK then subtle progression. #5 Started DRd: Daratumumab, Revlimid (25 mg days 1-21 of a 28-day cycle) and dexamethasone (20 mg days 1 and 2) October 02, 2024, tolerated with no grade 3 or 4 toxicities with keshawn ANC 1.1 on day 22. Developed acute shingles localized right upper inner thigh July 2023, and againunder the right breast August 2024 admitted that she has been taking acyclovir only intermittently and never received shingles vaccine. 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 Barakat 1-continue DRd, due to start cycle 2 in 1 week contention blood counts.. 2-VTE prophylaxis with low-dose aspirin 81 mg daily.. 3-infection prophylaxis : shingles prophylaxis with acyclovir 400 mg twice daily, advised to take faithfully.? Has been advised on several occasions to receive shingles vaccine but has not consented. Will prescribe a 10-day course of Aileen acyclovir for acute shingles September 25, 2024. 4-bone supportive therapy .? Patient still needs completion of dental? work and clearance prior. She believes that these dental problems are chronic ongoing unlikely to resolve. Patient was seen impression and plan as above summarized discussed.? Yusuf Leyva MD [employer] Making [employer] Operator, [facility] Divisions of Medical Oncology & Hematology Department of Internal Medicine [place] [id number] This note was generated? using a voice recognition system software.? Although itwas reviewed by the author prior to finalization, it may still contain incorrectwords, spelling, and punctuation that were not noted when reviewing prior to saving.? If a clinically significant typo or inaccurately typed? phrase is noted, please notify the author. Clinical Quality Measures Falls Risk Screening/Assistive Devices Have you fallen in the past year?: No 10/23/24 1533 <Electronically signed by Yusuf shah MD> Date _ Yusuf Leyva MD Cosigner Signature: Date (if applicable) CC: ~ [employer] Work Phone: Progress note Author Anika Smith [facility] Services Note Date/Time November 27, 2024 10:56 am [facility] [place] [address] OFFICE VISIT Date of Service: 11/27/24 1001 MR#: [id number] Acct: [id number] Name: LAURI READ Rep #: [id number] : 1950 From: Anika Moore VISUAL MERCHANDISER VISUAL MERCHANDISER-C Age/Sex: 74/F [place] [facility] [place]: Signed HPI Subjective Date of Service 11/27/24 Chief Complaint Multiple myeloma on treatment History of Present Illness 74-year-old female with a past medical history notable for hypertension, cerebrovascular disease, degenerative joint disease, obesity, GERD, hyperglycemia and bilateral breast cancers (2015, DCIS, status postlumpectomy and radiation no hormonal therapies. 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 That prompted a work-up for an occult malignancy that revealed that the patient had multiple myeloma. Her initial work-up was done at [facility] in [place]. She was advised quadruple therapy followed by high-dose chemotherapy and stem cell transplant. She felt too nervous about the aggressiveness of this approach. She then went to [facility] and was seen by Dr. Barakat for a second opinion where she wasadvised modified VRd(lite), for remission induction to be reevaluated for high-dose chemotherapy with melphalan followed by autologous stem cell transplant depending on her response. She requested care closer to her home town, [place], but within the [facility] network and was therefore referred to [facility] and she was first seen on June 02, 2021.. Her work-up included: Bone marrow aspirate and biopsy April 2021: Bone marrow involvement with plasma cell myeloma with 60 to 70% plasma cells. Cytogenetics 46XX. FISH positive for gain of 1q and hyperploidy of chromosome 3. Negative for hyperploidy of chromosome 7 and 11 and deletion of TP 53. PET/CT April 2021 showed a mildly hypermetabolic lytic lesion in the posterior aspect of L4. Diffuse metabolic activity of the remaining osseous structures consistent with involvement by myeloma and a discrete focal metabolicactivity in the cecum and sigmoid colon. Colonoscopy May 2021 to clarify abnormal PET: Sigmoid diverticulosis, otherwise no abnormalities and no specimen collected. Serum protein electrophoresis with immune fixation revealing a monoclonal IgG kappa of 2.6 g per DL March 2021. Urinalysis was positive for protein, 24-hour urine protein was 186 mg April 2021. Beta-2 microglobulin 3.May. Serologic tests for hepatitis B and C were negative. A normocytic anemia with a hemoglobin of 10.9, WBC 3.4, absolute neutrophil count of 1.34 and platelet count of 289, May 2021. Iron profile showed an iron saturation of 17%, elevated TIBC and elevated serum ferritin May 2021. Creatinine 0.9, normal calcium May 2021. Uric acid was elevated at 12.3, March 2021 and she was placed on allopurinol then. Treatment summary and response: * Modified VRd June 16-, February 16 2022 CR Declined myelo ablative melphalan with autologous stem cell transplantation. * Maintenance Velcade dexamethasone March 022021-December 2022 (Velcade day 1 and 15 of a 28-day cycle and dexamethasone 20 mg day 1 and 15 of each cycle); patient initially was not compliant with prescription instructions but reported better compliance in April 2022 when her M protein relapsed * Velcade dexamethasone (3 weeks on 1 week rest of a 28-day cycle with dexamethasone 40 mg weekly with Velcade) January 14, 2023- OK * VRd resumed April?September 2023 (Velcade ;3 weeks on 1 week rest ; dexamethasone 40 mg weekly and lenalidomide/Revlimid 25 Mg days 1-14; cycle length 28 days) deeper OK then patient requested a break from therapy due to side effects. * October ?January holiday from treatment requested by patient. * February 07, 2024?August 28, 2024 and low-dose dexamethasone (20 mg on day 1 and omitting day 2 as decided on by patient), OK then subtle progression * September 2024 DRd (daratumumab, Revlimid, dexamethasone) Interval History The patient is presenting to clinic for an evaluation anticipating she will begin c3 DRd. Confirms she has 25 mg lenalidomide in her possession and intends to begin 21 days this evening. Taking ASA daily. Administered premeds Tylenol 1000 mg and Claritin 10 mg at 1040. Intermittent blurry vision continues. Numbness/tingling involving fingertips, bilat R>L. Does not involve feet. Has not experienced any muscle cramping since starting electrolyte rich fluids daily. Denies fever/chills, sweats, headache, dizziness, CP, palpitation, cough, N/V, diarrhea, abd pain, swelling of her extremities, bleeding/bruising. No change in exertional dyspnea and fatigue. [facility] Medical History Encounter for monoclonal antibody treatment for malignancy Hypokalemia Low back pain Impacted cerumen of right ear Dehydration Tenderness of back Neuropathy Dermatitis Tooth pain Encounter for chemotherapy management Iron deficiency Anemia in chronic illness Left hip pain Encounter for education Degenerative joint disease Breast cancer Multiple myeloma Hyperuricemia Carotid stenosis Hyperglycemia Carpal tunnel syndrome GERD (gastroesophageal reflux disease) Granuloma annulare COVID-19 Benign hypertension Surgical History History of cataract extraction History of lumpectomy of both breasts History of left breast biopsy History of lymph node biopsy History of cervical polypectomy History of tubal ligation History of right breast biopsy History of cholecystectomy Hx of tonsillectomy Family History Father Lung cancer Smoker Brother , passed at 6 months of age Aplastic anemia Social History household members: spouse Smoking Status: Never smoker alcohol intake: never substance use type: does not use caffeine: Yes Type: coffee Number of servings: 1 ROS ROS Narrative Negative except as documented in the interval HPI Intake Vital Signs 10/23/24 15:14 11/27/24 10:02 Height 4 ft 9 in 4 ft 9 in Weight: 148 lb 4 oz BMI 32.1 BP 150/82 H Blood Pressure Location Lt brachial Position Sitting Respiration 18 Pulse 65 Pulse Source Monitor Temp 98.5 F Temperature Source Temporal Artery Pulse Oximetry (%) 98 Oxygen Delivery Method room air Intake Is patient in pain?: No Allergies No Known Allergies Allergy (Verified 11/27/24 10:16) Medications ?Medication ?Instructions ?Recorded ?Confirmed ?Type allopurinol 100 mg tablet 100 mg PO DAILY 06/02/2101/14 History furosemide 40 mg tablet 40 mg PO DAILY 06/02/2101/14 History [place] [employer] Pro DHA [place]-3 1 cap PO DAILY 2 11/27/24 History Osteoprime Ultra 2 tab PO BID 07/14/21 History Ten Mushroom 2 cap PO BID 07/14/21 History aspirin 81 mg tablet,delayed 81 mg PO DAILY 08/04/21 0 11/27/24 History release (Adult Low Dose Aspirin) Disability Placard #1 ea 12/15/21 11/27/24 Rx Euromedica Nerve Complex 1 cap PO BID 06/22/22 History valsartan 40 mg tablet 40 mg PO DAILY 07/19/2301/14 History dexamethasone 4 mg tablet 20 mg (5 x 4 mg) PO QDAY #10 0 tabs 01/26/24 11/27/24 Rx acyclovir 400 mg tablet 400 mg PO BID 30 days #60 ta bs 02/02/24 11/27/24 Rx famotidine 20 mg tablet (Pepcid) 20 mg PO DAILY #30 ta bs 02/02/24 11/27/24 Rx Kidney Aid PO 02/21/24 11/27/24 History NAC PO 02/21/24 11/27/24 History alpha lipoic acid 125 mg-biotin 95 cap PO 02/21/2401/14 History mcg-berberine 250 mg capsule cholecalciferol (vitamin D3) 125 125 mcg PO QDAY 02/2011/27/24 History mcg (5,000 unit) capsule Paur'de'arc PO 03/20/24 11/27/24 History naproxen 500 mg tablet 500 mg PO BID 03/27/2411/27 History potassium chloride 20 mEq 40 meq (2 x 20 mEq) PO DAILY #6 06/05/24 11/27/24 Rx tablet,extended release(part/cryst) tabs spirolena PO 08/28/24 11/27/24 History nifedipine 60 mg tablet,extended 30 mg PO DAILY 11/27/24 History release lenalidomide 25 mg capsule 25 mg PO QDAY 11/16/2401/14 History (Revlimid) Have you fallen in the past year?: No Central Venous Access Central Venous Access: No Laboratory Tests 10/11/22 11/27/24 13:33 09:45 WBC 4.3 L Hgb 11.0 L Hct 34.1 L Plt Count 177 Absolute Neuts (auto) 2.5 Sodium 139 Potassium 4.2 Chloride 105 Carbon Dioxide 23.8 BUN 17 Creatinine 0.71 Glucose 110 H Uric Acid 5.9 Calcium 9.4 Total Bilirubin 0.41 AST 17 ALT 16 Alkaline Phosphatase 109 H Albumin 4.3 Exam Physical Exam Const alert, oriented x3 and no apparent distress HEENT normocephalic Eyes Eyes Narrative: wears glasses General Eye: normal appearance of both eyes Neck no lymphadenopathy Resp normal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 Will 10/06/2023 9:31 AM Documents on File Type Date Recorded Patient [employer] Expl anation Living Will 10/06/2023 9:31 AM Advance Directive Response Recorded Date/ Time Advance Directives on File No July 31, 2024 12:15pm Living Will No July 31, 2024 12:15pm Power of Triple Drum Operator No July 31 12:15pm Advance Directives No July 31 12:15pm Advance Directive Response Recorded Date/ Time Advance Directives on File No August 28, 2024 11:43am Living Will No August 28, 2024 11:43am Do you have a Healthcare Power of Triple Drum Operator? No August 28, 2024 11:43am Advance Directives No August 28 11:43am Advance Directive Response Recorded Date/ Time Advance Directives on File No September 202024 9:50am Living Will No October 02, 2024 9 :50am Do you have a Healthcare Power of Triple Drum Operator? No October 02, 2024 9:50am Advance Directives No October 02 9:50am Advance Directive Response Recorded Date/ Time Advance Directives on File No October 30, 2024 1:02pm Living Will No October 30, 2024 1:02pm Do you have a Healthcare Power of Triple Drum Operator? No October 30, 2024 1:02pm Advance Directives No October 30 1:02pm Advance Directive Response Recorded Date/ Time Advance Directives on File No November 27, 2024 11:45am Living Will No November 27, 2024 1 1:45am Do you have a Healthcare Power of Triple Drum Operator? No November 27, 2024 11:45am Advance Directives No November 27 11:45am Advance Directive Response Recorded Date/ Time Advance Directives on File No 2024 11:50am Living Will No December 25, 2024 11:50am Do you have a Healthcare Power of Triple Drum Operator? No December 25, 2024 11:50am Advance Directives No December 25 11:50am Advance Directive Response Recorded Date/ Time Advance Directives on File No 2024 12:37pm Living Will No February 19, 2025 12:37pm Do you have a Healthcare Power of Triple Drum Operator? No February 19, 2025 12:37pm Advance Directives No January 12:37pm Chief Complaint * Pt is here today for a 6 month check up, C/O a spot under her right breast that is concerning to her. This note was generated by using ShowKit software. It may contain errors in wording, punctuate, orspelling. * She is here today for her 6-month checkup. She noticed a spot underneath her right breast on her anterior chest wall which seems to be getting larger. It does appear rather atypical and measures 2-1/2 cm in its widest dimension. I will obviously have her see a instrumentation chemist for an inspection. She is agreeable. Her [...] andcreatinine. She states she has been taking [id number] ibuprofen and we discussed the extreme importance of avoiding those medications as they can cause kidney damage. We also talked about the effects of the diuretics and so forth. Because of the abrupt change I will have her get into Dr. Garcia sooner than her regularly scheduled appointment. We [...] up, She is also due for her [facility] wellness exam. This note was ge nerated by using ShowKit software. It may contain errors in wording, [...] of lab work that was performed through [facility]. Her potassium level was good recently and her sodium level remains borderline low at 133. She has been seen by the traffic administrator, Dr. Garcia and he has been working on her [...] establishing a living will and power of delivery room clerk for healthcare. We also talked about fall [...] with postnasal drip and has been trying [id number] medications without much success. I have recommended that we try Flonase nasal spray and I sent a pre scription to her pharmacy. She will let me know if this is ineffective. 2 WEEK FUV- HTN* Pt is here today with the C/O gout in right ankle, right knee pain. This note was generated by using ShowKit software. It may contain errors in wording, punctuate, or spelling. * She is here today for evaluation of an acute onset of pain and swelling involving her right ankle and knee. She states she was worried about some Swelling so she appropriately went to the emergency department on Tuesday night. Because it was late Tuesday [facility] did not have a Doppler to do a test so they redirected her to an emergency room in [place]. She went there and they do the Doppler and thankfully she did not have any evidence of a DVT. We are reminded that she has been diagnosed with myeloma. She also has a history of gout and is on allopurinol. I do believe what I see today is likely fulfillment representative of an acute gouty flare. I [...] facial pain. This note was generated byusing ShowKit software. It may contain errors in wording, [...] labs. This note was generated by using ShowKit software. It may contain errors in wording, [...] is doing well everything is going on. Chief Complaint and Reason for Visit Chief Complaint 2WKS LABS VELCADE 2 WKS - LABS - VELCADE 2 WKS - LABS - VELCADE 2 WKS - LABS - VELCADE 2 WKS - LABS - VELCADE 2 WKS - LABS - VELCADE 2 WKS - LABS - VELCADE SCREENING 2 WKS - LABS - VELCADE Velcade Reason for Visit Encounter for chemot herapy management Multiple myeloma Encounter for chemotherapy management Multiple myeloma Encounter for chemotherapy management Multiple myeloma Encounter for chemotherapy management Multiple myeloma Neuropathy Encounter for chemotherapy management Multiple myeloma Encounter for chemotherapy management Multiple myeloma Encounter for chemotherapy management Multiple myeloma Encounter for chemotherapy management Multiple myeloma Chief Complaint 2 WKS - LABS - VELCA DE 1 WK - LABS - VELCADE 1 WK - LABS - VELCADE 2 WKS - LABS -VELCADE 1 WK - LABS - VELCADE 1 WK - LABS- VELCADE 2 WKS - LABS - VELCADE 1 WK - LABS - VELCADE 1 WK - LABS - VELCADE 2 WKS - LABS - VELCADE 1 WK- LABS - VELCADE 1 WK - LABS - VELCADE MID-LOW BACK PAIN, MULTIPLE MYELOMA 2 WKS - LABS - VELCADE Velcade Reason for Visit Dehydration Encounter for chemotherapy management Multiple myeloma Encounter for chemotherapy management Multiple myeloma Multiple myeloma Encounter for chemotherapy management Impacted cerumen of right ear Multiple myeloma Multiple myeloma Multiple myeloma Multiple myeloma Encounter for chemotherapy management Multiple myeloma Multiple myeloma Encounter for chemotherapy management Low back pain Multiple myeloma Encounter for chemotherapy management Low back pain Multiple myeloma Multiple myeloma Multiple myeloma Chief Complaint 1 WK - LABS - VELCAD E 2 WKS - LABS -VELCADE 1 WK - LABS - VELCADE 1 WK - LABS- VELCADE 2 WKS - LABS - VELCADE 1 WK - LABS - VELCADE 1 WK - LABS - VELCADE 2 WKS - LABS - VELCADE 1 WK- LABS - VELCADE 1 WK - LABS - VELCADE MID-LOW BACK PAIN, MULTIPLE MYELOMA 2 WKS - LABS - VELCADE 1 WK - LABS - VELCADE 1 WK - LABS - VELCADE Velcade SCREENING Reason for Visit Multiple myeloma Encounter for chemotherapy management Impacted cerumen of right ear Multiple myeloma Multiple myeloma Multiple myeloma Multiple myeloma Encounter for chemotherapy management Multiple myeloma Multiple myeloma Encounter for chemotherapy management Low back pain Multiple myeloma Encounter for chemotherapy management Low back pain Multiple myeloma Multiple myeloma Multiple myeloma Multiple myeloma Multiple myeloma Chief Complaint Admit Date 2WKS LABS MANUEL April 10, 2024 12:34pm 2 WKS - LABS - MANUEL May 08, 2024 9:58am 2 WKS - LABS - MANUEL June 05, 2024 1 0:06am 2 WKS - LABS - MANUEL June 19, 2024 1 1:11am 2 WKS - LABS - MANUEL July 03, 2024 9:52am SCREENING July 17, 2024 8:53am 2 WKS - LABS - MANUEL July 17, 2024 9:49am 2 WKS - LABS - MANUEL July 31, 2024 9:4 0am DARAZELEX FAST PRO July 31, 2024 9:4 5am Reason for Visit Admit Date Multiple myeloma April 10, 2024 12:34pm Multiple myeloma May 08, 2024 9:58am Shingles May 08, 2024 9:58am Multiple myeloma June 05, 2024 1 0:06am Shingles June 05, 2024 1 0:06am Multiple myeloma June 19, 2024 1 1:11am Shingles June 19, 2024 1 1:11am Multiple myeloma July 03, 2024 9:52am Multiple myeloma July 17, 2024 9:49am Shingles July 17, 2024 9:49am Encounter for monoclonal ant ibody treatment for malignancy July 31, 2024 9:40am Multiple myeloma July 31, 2024 9:4 0am Chief Complaint Admit Date 2 WKS - LABS - MANUEL June 05, 2024 1 0:06am 2 WKS - LABS - MANUEL June 19, 2024 1 1:11am 2 WKS - LABS - MANUEL July 03, 2024 9:52am SCREENING July 17, 2024 8:53am 2 WKS - LABS - MANUEL July 17, 2024 9:49am 2 WKS - LABS - MANUEL July 31, 2024 9:4 0am 4 WKS - LABS - MANUEL August 28, 2024 10:1 1am CHEMO EDUCATION September 19, 2024 8:5 7am 4 WKS - LABS - MANUEL September 25, 2024 10:11a m F/U - LABS - MANUEL October 02, 2024 7:40a m DARAZELEX FAST PRO October 02, 2024 7:45a m Reason for Visit Admit Date Multiple myeloma June 05, 2024 1 0:06am Shingles June 05, 2024 1 0:06am Multiple myeloma June 19, 2024 1 1:11am Shingles June 19, 2024 1 1:11am Multiple myeloma July 03, 2024 9:52am Multiple myeloma July 17, 2024 9:49am Shingles July 17, 2024 9:49am Encounter for monoclonal antibody treatm ent for malignancy July 31, 2024 9:40am Multiple myeloma July 31, 2024 9:4 0am Encounter for monoclonal antibody treatm ent for malignancy August 28, 2024 10:11am Multiple myeloma August 28, 2024 10:1 1am Encounter for monoclonal antibody treatm ent for malignancy September 19, 2024 8:57am Multiple myeloma September 19, 2024 8:5 7am Multiple myeloma September 25, 2024 10:11a m Shingles September 25, 2024 10:11a m Multiple myeloma October 02, 2024 7:40a m Shingles October 02, 2024 7:40a m Chief Complaint Admit Date 2 WKS - LABS - MANUEL July 03, 2024 9:52am SCREENING July 17, 2024 8:53am 2 WKS - LABS - MANUEL July 17, 2024 9:49am 2 WKS - LABS - MANUEL July 31, 2024 9:4 0am 4 WKS - LABS - MANUEL August 28, 2024 10:1 1am CHEMO EDUCATION September 19, 2024 8:5 7am 4 WKS - LABS - MANUEL September 25, 2024 10:11a m F/U - LABS - MANUEL October 02, 2024 7:40a m TOX CHECK - LABS October 23, 2024 2:16p m DARAZELEX FAST PRO October 30, 2024 10:4 5am Reason for Visit Admit Date Multiple myeloma July 03, 2024 9:52am Multiple myeloma July 17, 2024 9:49am Shingles July 17, 2024 9:49am Encounter for monoclonal antibody treatm ent for malignancy July 31, 2024 9:40am Multiple myeloma July 31, 2024 9:4 0am Encounter for monoclonal antibody treatm ent for malignancy August 28, 2024 10:11am Multiple myeloma August 28, 2024 10:1 1am Encounter for monoclonal antibody treatm ent for malignancy September 19, 2024 8:57am Multiple myeloma September 19, 2024 8:5 7am Multiple myeloma September 25, 2024 10:11a m Shingles September 25, 2024 10:11a m Multiple myeloma October 02, 2024 7:40a m Shingles October 02, 2024 7:40a m Multiple myeloma October 23, 2024 2:16p m Shingles October 23, 2024 2:16p m Multiple myeloma October 30, 2024 10:4 5am Chief Complaint Admit Date 2 WKS - LABS - MANUEL July 03, 2024 9:52am SCREENING July 17, 2024 8:53am 2 WKS - LABS - MANUEL July 17, 2024 9:49am 2 WKS - LABS - MANUEL July 31, 2024 9:4 0am 4 WKS - LABS - MANUEL August 28, 2024 10:1 1am CHEMO EDUCATION September 19, 2024 8:5 7am 4 WKS - LABS - MANUEL September 25, 2024 10:11a m F/U - LABS - MANUEL October 02, 2024 7:40a m DARAZELEX FAST PRO October 23, 2024 2:15p m TOX CHECK - LABS October 23, 2024 2:16p m Reason for Visit Admit Date Multiple myeloma July 03, 2024 9:52am Multiple myeloma July 17, 2024 9:49am Shingles July 17, 2024 9:49am Encounter for monoclonal antibody treatm ent for malignancy July 31, 2024 9:40am Multiple myeloma July 31, 2024 9:4 0am Encounter for monoclonal antibody treatm ent for malignancy August 28, 2024 10:11am Multiple myeloma August 28, 2024 10:1 1am Encounter for monoclonal antibody treatm ent for malignancy September 19, 2024 8:57am Multiple myeloma September 19, 2024 8:5 7am Multiple myeloma September 25, 2024 10:11a m Shingles September 25, 2024 10:11a m Multiple myeloma October 02, 2024 7:40a m Shingles October 02, 2024 7:40a m Multiple myeloma October 23, 2024 2:16p m Shingles October 23, 2024 2:16p m Chief Complaint Admit Date 2 WKS - LABS - MANUEL July 31, 2024 9:4 0am 4 WKS - LABS - MANUEL August 28, 2024 10:1 1am CHEMO EDUCATION September 19, 2024 8:5 7am 4 WKS - LABS - MANUEL September 25, 2024 10:11a m F/U - LABS - MANUEL October 02, 2024 7:40a m TOX CHECK - LABS October 23, 2024 2:16p m 4 WKS - LABS - MANUEL October 30, 2024 10:4 5am TOX CHECK - LABS November 20, 2024 9:51a m DARAZELEX FAST PRO November 20, 2024 10:15 am Reason for Visit Admit Date Encounter for monoclonal antibody treatm ent for malignancy July 31, 2024 9:40am Multiple myeloma July 31, 2024 9:4 0am Encounter for monoclonal antibody treatm ent for malignancy August 28, 2024 10:11am Multiple myeloma August 28, 2024 10:1 1am Encounter for monoclonal antibody treatm ent for malignancy September 19, 2024 8:57am Multiple myeloma September 19, 2024 8:5 7am Multiple myeloma September 25, 2024 10:11a m Shingles September 25, 2024 10:11a m Multiple myeloma October 02, 2024 7:40a m Shingles October 02, 2024 7:40a m Multiple myeloma October 23, 2024 2:16p m Shingles October 23, 2024 2:16p m Multiple myeloma October 30, 2024 10:4 5am Multiple myeloma November 20, 2024 9:51a m Chief Complaint Admit Date 2 WKS - LABS - MANUEL July 31, 2024 9:4 0am 4 WKS - LABS - MANUEL August 28, 2024 10:1 1am CHEMO EDUCATION September 19, 2024 8:5 7am 4 WKS - LABS - MANUEL September 25, 2024 10:11a m F/U - LABS - MANUEL October 02, 2024 7:40a m TOX CHECK - LABS October 23, 2024 2:16p m 4 WKS - LABS - MANUEL October 30, 2024 10:4 5am TOX CHECK - LABS November 20, 2024 9:51a m 4 WKS - LABS - MANUEL November 27, 2024 9:38a m DARAZELEX FAST PRO November 27, 2024 9:45a m Reason for Visit Admit Date Encounter for monoclonal antibody treatm ent for malignancy July 31, 2024 9:40am Multiple myeloma July 31, 2024 9:4 0am Encounter for monoclonal antibody treatm ent for malignancy August 28, 2024 10:11am Multiple myeloma August 28, 2024 10:1 1am Encounter for monoclonal antibody treatm ent for malignancy September 19, 2024 8:57am Multiple myeloma September 19, 2024 8:5 7am Multiple myeloma September 25, 2024 10:11a m Shingles September 25, 2024 10:11a m Multiple myeloma October 02, 2024 7:40a m Shingles October 02, 2024 7:40a m Multiple myeloma October 23, 2024 2:16p m Shingles October 23, 2024 2:16p m Multiple myeloma October 30, 2024 10:4 5am Multiple myeloma November 20, 2024 9:51a m Multiple myeloma November 27, 2024 9:38a m Chief Complaint Admit Date 4 WKS - LABS - MANUEL September 25, 2024 10:11a m F/U - LABS - MANUEL October 02, 2024 7:40a m TOX CHECK - LABS October 23, 2024 2:16p m 4 WKS - LABS - MANUEL October 30, 2024 10:4 5am TOX CHECK - LABS November 20, 2024 9:51a m 4 WKS - LABS - MANUEL November 27, 2024 9:38a m 4 WKS - LABS - MANUEL December 25, 2024 9:3 5am 4 WKS - LABS - MANUEL January 22, 2025 1:58pm DARAZELEX FAST PRO January 22, 2025 2:15pm Reason for Visit Admit Date Multiple myeloma September 25, 2024 10:11a m Shingles September 25, 2024 10:11a m Multiple myeloma October 02, 2024 7:40a m Shingles October 02, 2024 7:40a m Multiple myeloma October 23, 2024 2:16p m Shingles October 23, 2024 2:16p m Multiple myeloma October 30, 2024 10:4 5am Multiple myeloma November 20, 2024 9:51a m Multiple myeloma November 27, 2024 9:38a m Multiple myeloma December 25, 2024 9:3 5am Multiple myeloma January 22, 2025 1:58pm Shingles January 22, 2025 1:58pm Chief Complaint Admit Date TOX CHECK - LABS October 23, 2024 2:16p m 4 WKS - LABS - MANUEL October 30, 2024 10:4 5am TOX CHECK - LABS November 20, 2024 9:51a m 4 WKS - LABS - MANUEL November 27, 2024 9:38a m 4 WKS - LABS - MANUEL December 25, 2024 9:3 5am 4 WKS - LABS - MANUEL January 22, 2025 1:58pm 4 WKS - LABS - MANUEL February 19, 2025 9:31am DARAZELEX FAST PRO February 19, 2025 9:45am Reason for Visit Admit Date Multiple myeloma October 23, 2024 2:16p m Shingles October 23, 2024 2:16p m Multiple myeloma October 30, 2024 10:4 5am Multiple myeloma November 20, 2024 9:51a m Multiple myeloma November 27, 2024 9:38a m Multiple myeloma December 25, 2024 9:3 5am Multiple myeloma January 22, 2025 1:58pm Shingles January 22, 2025 1:58pm Encounter for monoclonal ant ibody treatment for malignancy February 19, 2025 9:31am Multiple myeloma February 19, 2025 9:31am Reason for Referral Specialty Diagnoses / Procedures Referred By Tobin t Referred To Contact Radiology Diagnoses Encounter for screening mammogram for malignant neoplasm of breast Procedures BI mammo bilateral screening tomosynthesis Thelma FrazierDO [address] [facility] [place] [address] Referral ID Status Reason Start Date Expiration Date Visits Requested Visits Authorized [id number] Authorized Perform Procedure 06/08/2023 06/07/2024 1 1 Specialty Diagnoses / Procedures Referred By Tobin suero Referred To Contact Primary Care Procedures Follow Up In Primary Care RoselleThelma DO Anusha [address] [place] [address] Referral ID Status Reason Start Date Expiration Date V isits Requested Visits Authorized [id number] Authorized 06/08/2023 06/07/2024 1 1 Specialty Diagnoses / Procedures Referred By Tobin t Referred To Contact Cardiology Diagnoses Leg edema Procedures Vascular US lower extremity venous duplex bilateral Ryan Grier MD [address] [place] [facility], [place] [address] Referral ID Status Reason Start Date Expiration Date Visits Requested Visits Authorized [id number] Authorized Perform Procedure 07/28/2023 07/27/2024 1 1 Specialty Diagnoses / Procedures Referred By Tobin suero Referred To Contact Cardiology Diagnoses Shortness of breath Procedures Transthoracic Echo Complete OK ECHO TTHRC R-T 2D W/WOM-MODE COMPL SPEC&COLR D Ryan Grier MD [address] [place], [facility] [address] [place] [id number] Referral ID Status Reason Start Date Expiration Date Visits Requested Visits Authorized [id number] Pending Review Perform Procedure 07/28/2023 07/27/2024 1 1 Specialty Diagnoses / Procedures Referred By Contac t Referred To Contact Radiology Diagnoses Shortness of breath Procedures CT cardiac scoring wo IV contrast Ryan Grier MD [address] [place] [facility], [facility] [address] [place] [address] Referral ID Status Reason Start Date Expiration Date Visits Requested Visits Authorized [id number] Pending Review Perform Procedure 07/28/2023 07/27/2024 1 1 Referral ID Status Reason Start Date Expiration Date Visits Requested Visits Authorized [id number] Authorized Perform Procedure 07/28/2023 07/27/2024 1 1 Referral ID Status Reason Start Date Expiration Date Visits Requested Visits Authorized [id number] Authorized Perform Procedure 07/28/2023 07/27/2024 1 1 Specialty Diagnoses / Procedures Referred By Contac t Referred To Contact Radiology Diagnoses Bilateral hip pain Procedures XR hips bilateral 2 VW w pelvis when performed Thelma Frazier, [address] [facility] [place] [address] Referral ID Status Reason Start Date Expiration Date Visits Requested Visits Authorized [id number] Authorized Perform Procedure 12/06/2023 12/05/2024 1 1 Additional Source Comments INFORMATION SOURCE (unrecogn ized section and content) DATE CREATED AUTHOR 12/05/2018 [facility] DATE CREATED AUTHOR AUTHOR'S ORGANIZ ATION 06/16/2021 [facility] DATE CREATED AUTHOR AUTHOR'S ORGANIZ ATION 08/28/2021 [facility] DATE CREATED AUTHOR AUTHOR'S ORGANIZ ATION 07/10/2022 [facility] DATE CREATED AUTHOR AUTHOR'S ORGANIZ ATION 08/27/2022 [facility] DATE CREATED AUTHOR AUTHOR'S ORGANIZ ATION 06/06/2024 [facility] DATE CREATED AUTHOR AUTHOR'S ORGANIZ ATION 06/12/2024 [facility] DATE CREATED AUTHOR AUTHOR'S ORGANIZ ATION 10/17/2024 [facility] DATE CREATED AUTHOR AUTHOR'S ORGANIZ ATION 12/11/2024 [facility] DATE CREATED AUTHOR AUTHOR'S ORGANIZ ATION 03/13/2025 [facility] DATE CREATED AUTHOR AUTHOR'S ORGANIZ ATION 04/03/2025 [facility] DATE CREATED AUTHOR AUTHOR'S ORGANIZ ATION 04/04/[address] [facility] DATE CREATED AUTHOR AUTHOR'S ORGANIZ ATION 04/05/2025 [facility] DATE CREATED AUTHOR AUTHOR'S ORGANIZ ATION 04/05/2025 [facility] <item> Privacy Markings (unrecogniz ed section and content) Section Author: Keyona Reeves PROHIBITION ON REDISCLOSURE OF CONFIDENTIAL INFORMATION This notice accompanies a disclosure of information concerning a client made to you with the consent of such client. Reason for Visit (unrecogniz ed section and content) Reason Comments Follow-up 3 WK [facility] Specialty Diagnoses / Procedures Referred By Tobin suero Referred To Contact Primary Care Procedures Follow Up In Primary Care Thelma Frazier DO [address] [place] [address] Phone: tel: fax: Referral ID Status Reason Start Date Expiration Date V isits Requested Visits Authorized [id number] Authorized 02/14/2025 02/14/2026 1 1 Reason Comments Follow-up Reason Comments Follow-up 6 MO FUV. Right ear clogged. Been using ear drops all week. Specialty Diagnoses / Procedures Referred By Tobin suero Referred To Contact Primary Care Diagnoses HTN (hypertension), benign Gastroesophageal reflux disease without esophagitis Hypertriglyceridemia Procedures Follow Up In Primary Care Thelma Frazier DO [address] [facility] [place] [address] Referral ID Status Reason Start Date Expiration Date Visits Re quested Visits Authorized [id number] Closed 08/26/2022 02/22/2023 1 1 Reason Comments Follow-up Reason Comments Leg Swelling C/o b leg swelling a nd decreased urine output x 1 week. Also c/o right flank pain with movement. Pt is currently on plaxlovid, was dx with covid 6 days ago Reason Comments Follow-up New med-no compliant s Specialty Diagnoses / Procedures Referred By Contac t Referred To Contact Primary Care Procedures Follow Up In Primary Care Thelma Frazier, [address] [facility] Building [place] [phone] Referral ID Status Reason Start Date Expiration Date V isits Requested Visits Authorized [id number] Authorized 06/29/2023 06/28/2024 1 1 Reason Comments Hospital Follow-up Edema BLE Specialty Diagnoses / Procedures Referred By Contac t Referred To Contact Cardiology Krista Latham PA-C [facility] [place] [address] Referral ID Status Reason Start Date Expiration Date Visits Requested Visits Authorized [id number] Authorized Specialty Services Required 07/09/2023 07/08/2024 1 1 Specialty Diagnoses / Procedures Referred By Contac t Referred To Contact Cardiology Diagnoses Leg edema Procedures Vascular US lower extremity venous duplex bilateral Ryan Grier MD [address] [place], [address] [address] Referral ID Status Reason Start Date Expiration Date Visits Requested Visits Authorized [id number] Authorized Perform Procedure 07/28/2023 07/27/2024 1 1 Specialty Diagnoses / Procedures Referred By Contac t Referred To Contact Radiology Diagnoses Shortness of breath Procedures CT cardiac scoring wo IV contrast Ryan Grier MD [address] [place], [facility] [address] [place] [address] Referral ID Status Reason Start Date Expiration Date Visits Requested Visits Authorized [id number] Authorized Perform Procedure 07/28/2023 07/27/2024 1 1 Specialty Diagnoses / Procedures Referred By Contac t Referred To Contact Cardiology Diagnoses Shortness of breath Procedures Transthoracic Echo Complete OK ECHO TTHRC R-T 2D W/WOM-MODE COMPL SPEC&COLR D Ryan Grier MD [address] [facility], [place] [address] [place] [id number] Referral ID Status Reason Start Date Expiration Date Visits Requested Visits Authorized [id number] Authorized Perform Procedure 07/28/2023 07/27/2024 1 1 Reason Comments echo f/u Reason Comments Medicare Annual Wellness Visit Subsequen t Reason Comments Follow-up 1 year follow up Reason Comments Follow-up Reason Comments URI SINUS CONGESTION, CO UGH , MOUTH IRRITATION, LYMPH NODE TENDERNESS x 6 DAYS Reason Comments Hip Pain Xrays from a year ag o-affecting walking Specialty Diagnoses / Procedures Referred By Tobin t Referred To Contact Radiology Diagnoses Bilateral hip pain Procedures XR hips bilateral 2 VW w pelvis when performed Thelma Frazier, [address] [facility] [place] [address] Referral ID Status Reason Start Date Expiration Date Visits Requested Visits Authorized [id number] Authorized Perform Procedure 12/06/2023 12/05/2024 1 1 Reason Comments Weakness, Gen Patient complains of cough and weakness since Tuesday, her and her went to urgent care prior to arrival and was positive for influenza A Reason Comments Follow-up URGENT CARE FU INFLU RANDY A Reason Comments Cough Reason Comments Illness Reason Comments Follow-up Follow up for pneumo tony Reason Comments Sinusitis Sinus drainage/conge stion x 1 week Reason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 Provider Active Start: November 27, 2024 End: November 27, 2024 Dr. Thelma Frazier MD Referring Provider Active Start: November 27, 2024 End: November 27, 2024 Anika Smith VISUAL MERCHANDISER, VISUAL MERCHANDISER-C Attending Provider Active Start: November 27, 2024 End: November 27, 2024 Team Status: Inactive Member Role/Relationship Status Dates Dr. Thelma Frazier MD Primary Care Provider Active Start: December 25, 2024 End: December 25, 2024 Dr. Thelma Frazier MD Referring Provider Active Start: December 25, 2024 End: December 25, 2024 Anika Smith VISUAL MERCHANDISER, VISUAL MERCHANDISER-C Attending Provider Active Start: December 25, 2024 End: December 25, 2024 Team Status: Active Member Role/Relationship Status Dates Dr. Thelma Frazier MD Primary Care Provider Active Start: December 25, 2024 Dr. Yusuf Leyva MD Attending Provider Active Start: December 25, 2024 Dr. Yusuf Leyva MD Referring Provider Active Start: December 25, 2024 Dr. Jeet Garcia DO Other Provider Active Start : December 25, 2024 Anika Smith VISUAL MERCHANDISER, VISUAL MERCHANDISER-C Other Provider Active St art: December 25, 2024 Team Status: Inactive Member Role/Relationship Status Dates Dr. Thelma Frazier MD Primary Care Provider Active Start: September 25, 2024 End: September 25, 2024 Dr. Thelma Frazier MD Referring Provider Active Start: September 25, 2024 End: September 25, 2024 Dr. Yusuf Leyva MD Attending Provider Active Start: September 25, 2024 End: September 25, 2024 Team Status: Inactive Member Role/Relationship Status Dates Dr. Thelma Frazier MD Primary Care Provider Active Start: October 02, 2024 End: October 02, 2024 Dr. Thelma Frazier MD Referring Provider Active Start: October 02, 2024 End: October 02, 2024 Anika Smith VISUAL MERCHANDISER, VISUAL MERCHANDISER-C Attending Provider Active Start: October 02, 2024 End: October 02, 2024 Team Status: Inactive Member Role/Relationship Status Dates Dr. Thelma Frazier MD Primary Care Provider Active Start: October 23, 2024 End: October 23, 2024 Dr. Thelma Frazier MD Referring Provider Active Start: October 23, 2024 End: October 23, 2024 Dr. Yusuf Leyva MD Attending Provider Active Start: October 23, 2024 End: October 23, 2024 Team Status: Inactive Member Role/Relationship Status Dates Dr. Thelma Frazier MD Primary Care Provider Active Start: October 30, 2024 End: October 30, 2024 Dr. Thelma Frazier MD Referring Provider Active Start: October 30, 2024 End: October 30, 2024 Anika Smith VISUAL MERCHANDISER, VISUAL MERCHANDISER-C Attending Provider Active Start: October 30, 2024 End: October 30, 2024 Team Status: Inactive Member Role/Relationship Status Dates Dr. Thelma Frazier MD Primary Care Provider Active Start: November 20, 2024 End: November 20, 2024 Dr. Thelma Frazier MD Referring Provider Active Start: November 20, 2024 End: November 20, 2024 Anika Smith VISUAL MERCHANDISER, VISUAL MERCHANDISER-C Attending Provider Active Start: November 20, 2024 End: November 20, 2024 Team Status: Inactive Member Role/Relationship Status Dates Dr. Thelma Frazier MD Primary Care Provider Active Start: November 27, 2024 End: November 27, 2024 Dr. Thelma Frazier MD Referring Provider Active Start: November 27, 2024 End: November 27, 2024 Anika Smith VISUAL MERCHANDISER, VISUAL MERCHANDISER-C Attending Provider Active Start: November 27, 2024 End: November 27, 2024 Team Status: Inactive Member Role/Relationship Status Dates Dr. Thelma Frazier MD Primary Care Provider Active Start: December 25, 2024 End: December 25, 2024 Dr. Thelma Frazier MD Referring Provider Active Start: December 25, 2024 End: December 25, 2024 Anika Smith VISUAL MERCHANDISER, VISUAL MERCHANDISER-C Attending Provider Active Start: December 25, 2024 End: December 25, 2024 Team Status: Inactive Member Role/Relationship Status Dates Dr. Thelma Frazier MD Primary Care Provider Active Start: January 22, 2025 End: January 22, 2025 Dr. Thelma Frazier MD Referring Provider Active Start: January 22, 2025 End: January 22, 2025 Dr. Yusuf Leyva MD Attending Provider Active Start: January 22, 2025 End: January 22, 2025 Team Status: Active Member Role/Relationship Status Dates Dr. Thelma Frazier MD Primary Care Provider Active Start: January 22, 2025 Dr. Yusuf Leyva MD Attending Provider Active Start: January 22, 2025 Dr. Yusuf Leyva MD Referring Provider Active Start: January 22, 2025 Dr. Jeet Garcia DO Other Provider Active Start : January 22, 2025 Anika Smith VISUAL MERCHANDISER, VISUAL MERCHANDISER-C Other Provider Active St art: January 22, 2025 [employer]er Relationship Specialty Start Date End Date Thelma Frazier DO [address] [place] [address] PCP - General 01/23/19 Jeet Garcia, DO [address] [place] [id number] Nephrology 08/26/22 [employer] As[employer]er Relationship Specialty Start Date End Date Thelma Frazier DO [address] [address] PCP - General 01/23/19 Jeet Garcia, DO [address] [place] [id number] Nephrology 08/26/22 [employer] Assembler Relationship Specialty Start Date End Date Tehlma Frazier DO [address] [address] PCP - General 01/23/19 Jeet Garcia, DO [address] [place] [id number] Nephrology 08/26/22 [employer]er Relationship Specialty Start Date End Date Thelma Frazier DO [address] [place] [id number] PCP - General Internal Medicine 11/08/16 Team Status: Active Member Role/Relationship Status Dates Dr. Thelma Frazier MD Primary care physician Active Team Status: Inactive Member Role/Relationship Status Dates Dr. Thelma Frazier MD Primary care physician Active Start: October 23, 2024 End: October 23, 2024 Dr. Thelma Frazier MD Referring Provider Active Start: October 23, 2024 End: October 23, 2024 Dr. Yusuf Leyva MD Attending physician Active Start: October 23, 2024 End: October 23, 2024 Team Status: Inactive Member Role/Relationship Status Dates Dr. Thelma Frazier MD Primary care physician Active Start: October 30, 2024 End: October 30, 2024 Dr. Thelma Frazier MD Referring Provider Active Start: October 30, 2024 End: October 30, 2024 Anika Smith VISUAL MERCHANDISER, VISUAL MERCHANDISER-C Attending physician Active Start: October 30, 2024 End: October 30, 2024 Team Status: Inactive Member Role/Relationship Status Dates Dr. Thelma Frazier MD Primary care physician Active Start: November 20, 2024 End: November 20, 2024 Dr. Thelma Frazier MD Referring Provider Active Start: November 20, 2024 End: November 20, 2024 Anika Smith VISUAL MERCHANDISER, VISUAL MERCHANDISER-C Attending physician Active Start: November 20, 2024 End: November 20, 2024 Team Status: Inactive Member Role/Relationship Status Dates Dr. Thelma Frazier MD Primary care physician Active Start: November 27, 2024 End: November 27, 2024 Dr. Thelma Frazier MD Referring Provider Active Start: November 27, 2024 End: November 27, 2024 Anika Smith VISUAL MERCHANDISER, VISUAL MERCHANDISER-C Attending physician Active Start: November 27, 2024 End: November 27, 2024 Team Status: Inactive Member Role/Relationship Status Dates Dr. Thelma Frazier MD Primary care physician Active Start: December 25, 2024 End: December 25, 2024 Dr. Thelma Frazier MD Referring Provider Active Start: December 25, 2024 End: December 25, 2024 Anika Smith VISUAL MERCHANDISER, VISUAL MERCHANDISER-C Attending physician Active Start: December 25, 2024 End: December 25, 2024 Team Status: Inactive Member Role/Relationship Status Dates Dr. Thelma Frazier MD Primary care physician Active Start: January 22, 2025 End: January 22, 2025 Dr. Thelma Frazier MD Referring Provider Active Start: January 22, 2025 End: January 22, 2025 Dr. Yusuf Leyva MD Attending physician Active Start: January 22, 2025 End: January 22, 2025 Team Status: Inactive Member Role/Relationship Status Dates Dr. Thelma Frazier MD Primary care physician Active Start: February 19, 2025 End: February 19, 2025 Dr. Thelma Frazier MD Referring Provider Active Start: February 19, 2025 End: February 19, 2025 Anika Smith VISUAL MERCHANDISER, VISUAL MERCHANDISER-C Attending physician Active Start: February 19, 2025 End: February 19, 2025 Team Status: Active Member Role/Relationship Status Dates Dr. Thelma Frazier MD Primary care physician Active Start: February 19, 2025 Dr. Yusuf Leyva MD Attending physician Active Start: February 19, 2025 Dr. Yusuf Leyva MD Referring Provider Active Start: February 19, 2025 Dr. Jeet Garcia DO Nurse Practitioner Active S tart: February 19, 2025 Anika Smith VISUAL MERCHANDISER, VISUAL MERCHANDISER-C Nurse Practitioner Active Start: February 19, 2025 [employer] As[employer]er Relationship Specialty Start Date End Date Thelma Frazier DO [address] [address] PCP - General 01/23/19 Jeet Garcia DO [address] [address] Nephrology 08/26/22 [employer] Assembler Relationship Specialty Start Date End Date Thelma Frazier DO [address] [address] PCP - General 01/23/19 Jeet Garcia DO [address] [address] Nephrology 08/26/22 [employer] Assembler Relationship Specialty Start Date End Date Thelma Frazier DO [address] [address] PCP - General 01/23/19 Jeet Garcia DO [address] [address] Nephrology 08/26/22 [employer] Assembler Relationship Specialty Start Date End Date Thelma Frazier DO [address] [address] PCP - General 01/23/19 Jeet Garcia DO [address] [place] [address] Nephrology 08/26/22 [employer] Assembler Relationship Specialty Start Date End Date ThelmaDO [address] [address] PCP - General 01/23/19 Jeet Garcia DO [address] [place] [address] Nephrology 08/26/22 Goals (unrecognized section and content) Goals may be documented in a n alternate sectionGoals may be documented in an alternate sectionGoals may be documented in an alternate sectionGoals may be documented in an alternate sectionGoals may be documented in an alternate sectionGoals may be documented in an alternate sectionGoals may be documented in an alternate sectionGoals may be documented in an alternate sectionGoals may be documented in an alternate sectionGoals may be documented in an alternate sectionGoals may be documented in an alternate sectionGoals may be documented in an alternate section Scheduled Active and Recently Administ ered Medications (unrecognized section and content) Medication Order 07/07/2023 07/08/2023 07/09/2023 azithromycin (Zithromax) tablet 500 mg (COMPLETED) 500 mg, oral, Once, On 07/09/23 at 1930, For 1 dose, Suspected Indication (Select all that apply): Pneumonia, Type of Therapy: Empiric 1929 (Given - Provid er: Donny Bro RN) furosemide (Lasix) injection 20 mg (COMPLETED) 20 mg, intravenous, Once, On 07/09/23 at 1850, For 1 dose 1856 (Given - Provid er: Donny Bro RN) iohexol (OMNIPaque) 350 mg iodine/mL solution 69 mL (COMPLETED) 69 mL, intravenous, Once in imaging, Starting on 07/09/23 at 1705, For 1 dose 1659 (Given - Provid er: Salinas Julian-Alexander) Scheduled Medication Order 05/29/2024 05/30/2024 05/31/2024 ondansetron ODT (Zofran-ODT) disintegrating tablet 4 mg 4 mg, oral, Once, On Gwendolyn 05/31/24 at 1655, For 1 dose 1742 (Not Given - Pr ovider: Olivia Perez RN - Reason: Patient/family refused) FOR RECORDS PERTAINING TO PATIENTS WHO ARE [...] BE BASED ON THE PRIMARY CLINICAL RECORDS. [employer] provides no warranty or guarantee of the accuracy or completeness of information in this document.
[2025-04-30 19:22] LABS: Color, Urine Yellow (Yellow); Glucose, Dipstick Normal (Normal); Ketone-Dipstick 5 mg/dl (Negative); Leukocyte Esterase-Dipstick 25 /ul (Negative); Nitrite-Dipstick Negative (Negative); Occult Blood-Urine 10 /ul (Negative); Protein-Dipstick 100 mg/dl (Negative); Specific Gravity, Urine 1.025 (1.002-1.030); Urine Bilirubin Dipstick Negative (Negative)
[2025-04-30 20:00] VITALS: BP 157/69; PULSE 88; RESP 16; O2SAT 99
[2025-04-30 20:24] LABS: Red Blood Cells-Urine 0-5 SEEN /hpf (0-5); Squamous Epithelial Cells - UA 0-5 SEEN /hpf (5-10); Transitional Epithelial - Ur 0-5 SEEN /hpf (0-5)
[2025-04-30 22:00] VITALS: BP 148/70; PULSE 80; O2SAT 100
[2025-04-30 22:26] VITALS: BP 148/70; PULSE 80; RESP 16; TEMP 36.8; O2SAT 100
== END 2025-04-30 22:27 | disposition left against medical advice (07) ==
PROVIDERS: Emergency Provider Emergency Medicine; PCP Internal Medicine; Visit Provider Emergency Medicine
DX: M54.50 Low back pain, unspecified (principal); C90.00 Multiple myeloma not having achieved remission; C50.919 Malignant neoplasm of unspecified site of unspecified female breast; Z53.29 Procedure and treatment not carried out because of patient's decision for other reasons; G62.9 Polyneuropathy, unspecified; B02.9 Zoster without complications; R39.198 Other difficulties with micturition; I10 Essential (primary) hypertension; R73.9 Hyperglycemia, unspecified; E87.6 Hypokalemia; E79.0 Hyperuricemia without signs of inflammatory arthritis and tophaceous disease; K21.9 Gastro-esophageal reflux disease without esophagitis; M48.02 Spinal stenosis, cervical region; Z79.82 Long term (current) use of aspirin; Z90.49 Acquired absence of other specified parts of digestive tract; Z79.899 Other long term (current) drug therapy
CPT/HCPCS: 72148; 81001; 87040; 99283; A4216

== ENCOUNTER → 2025-05-03 | Outpatient (CLI) | payer MEDICARE, OTHER, SELFPAY ==
--- NOTE | 2025-05-03 13:59 | MRI_ITS ---
PROCEDURE: SPINE THORACIC W/WO CONTRAST 05/03/2025 REASON FOR EXAM: THORACIC RADICLUPATHY, WORSENING BALANCE TECHNIQUE: Thoracic spine MRI without and with intravenous gadolinium-based contrast. Multiplanar and multisequence images were obtained. CONTRAST: Clariscan VOLUME: 17mL COMPARISON: MRI cervical spine 06/06/2023. FINDINGS: Vertebrae: Decrease in size of hyperintense lesion on T2 at T8 vertebral body compared to MRI 115 2023 May represent hemangioma. No additional lesions. Alignment: Normal alignment. Spinal Cord: Unremarkable. Disc spaces: Disc extrusion measures up to 7 mm at T7-T8 vertebral body without mass-effect upon the thecal sac causing mild canal stenosis. The remainder disc levels are unremarkable. Paraspinal Tissues: Unremarkable. Postcontrast images: Unremarkable. MRI/Spine Thoracic W/WO Contrast IMPRESSION: No evidence of acute infectious or neoplastic process. Reading Location: [id number]
== END | disposition home or self-care (01) ==
LOC: MRI 13:56
PROVIDERS: PCP Internal Medicine; Referring Provider Orthopaedic Surgery Orthopaedic Surgery of the Spine; Visit Provider Orthopaedic Surgery Orthopaedic Surgery of the Spine
DX: C90.00 Multiple myeloma not having achieved remission (principal); M54.14 Radiculopathy, thoracic region
CPT/HCPCS: 72157; A9575

== ENCOUNTER → 2025-05-09 | Outpatient (CLI) | payer MEDICARE, OTHER, SELFPAY ==
[2025-05-09 16:22] LABS: Vitamin B12 405 pg/mL (180-914)
[2025-05-14 07:07] LABS: Folate, Hemolysate Test 528.0 ng/mL (Not Estab.); Folate, RBC (Hct) Test 35.5 % (34.0-46.6); Folates, RBC Test 1487 ng/mL (>498); VITAMIN B6 55.8 ug/L (3.4-65.2); Vitamin B1, Thiamine 206.3 nmol/L (66.5-200.0)
[2025-05-15 12:08] LABS: Vitamin D 1,25-Dihydroxy 88.6 pg/mL (24.8-81.5)
== END | disposition home or self-care (01) ==
LOC: MTLAB 13:10
PROVIDERS: PCP Internal Medicine; Referring Provider Psychiatry & Neurology Neurology; Visit Provider Psychiatry & Neurology Neurology
DX: G62.9 Polyneuropathy, unspecified (principal); R73.9 Hyperglycemia, unspecified
CPT/HCPCS: 36415; 82607; 82652; 82747; 83036; 84207; 84425; 85014